=== PATIENT | male | born 1950 | race Caucasian/White ===

== ENCOUNTER 2016-09-08 09:09 | Emergency (ER) | payer BC ==
[~2016-09-08] VITALS: Ht 180.3 cm; Wt 126.0 kg
[~2016-09-08 09:09] MED LIST: ALBU1NEB10 INH; ASPI81TA28 PO; BRIN1SUS OPL; BUDE0.5S INH; CHOL1000 PO; CPR/500 PO; DARI15TA PO; DOCU100T7 PO; FINA5TAB PO; FURO-85 PO; GABA-113 PO; LPR100 PO; LSN20 PO; METF-384 PO; NTRGSL/4 UT; OXYC-57 PO; PHEN-939 PO; PLV75 PO; ROSU40TA PO; URX/10 PO; WLLSR150 PO
[2016-09-08 09:16] VITALS: TEMP 36.9; O2SAT 96; Ht 180.3 cm; Wt 126.0 kg
--- NOTE | 2016-09-08 09:22 | EMERGENCY ROOM VISIT NOTE ---
History Report prepared by Verenice: Marcos Landa Under the Supervision of: Dr. Fernando Dougherty M.D. First contact with patient: 09:08 Chief Complaint: CHEST PAIN Stated Complaint: CHEST PAIN History of Present Illness The patient is a 66 year old male who presents to the Emergency Room with complaints of resolved chest pain that started around 0800. The pain was sharp and came on suddenly when he was sitting down eating cereal. The sharp pain only lasted about 3-4 seconds. He then felt pain radiating to his back between his shoulder blades and he felt very hot. The patient's symptoms lasted about one minute in total. He feels completely fine now. The patient is short of breath at baseline secondary to COPD. He is not more short of breath than baseline. He denies any fevers or chills. The patient felt similar pain when he had a heart attack. He has had two coronary stents placed. The patient takes a baby aspirin daily, including this morning. He was also given aspirin en route to the ED in the ambulance to total 324 mg. He still smokes 1-2 cigarettes per day. Source of History: patient Onset: 0800 Position: chest Quality: sharp Timing: resolved Associated Symptoms: + back pain, No SOB, No chills, No fevers Review of Systems All systems have been listed, reviewed, and are negative other than those previously mentioned. Please see Additional Medical History Sheet. Past Medical & Surgical Medical Problems: (1) Benign hypertension (2) Carpal tunnel syndrome (3) Compensated depression (4) COPD (chronic obstructive pulmonary disease) (5) Coronary artery disease (6) Diabetes mellitus (7) Diabetic neuropathy (8) Hemorrhoid surgery (9) Hyperlipidemia (10) Myocardial infarction (11) Placement of stent (12) Repair of inguinal hernia (13) Scrotal abscess drainage (14) Ventricular fibrillation Family History Diabetes mellitus Heart disease Hypertension Social History Smoking Status: Current Every Day Smoker Housing Status: lives with family Current/Historical Medications Scheduled Alfuzosin HCl (Alfuzosin HCl ER), 10 MG PO QAM Aspirin (Aspirin Ec), 81 MG PO QPM Brinzolamide Oph (Azopt Oph), 1 DROPS OPL BID Budesonide Soln (Pulmicort Respules 0.5MG/2ML), 2 ML INH QID Bupropion HCl (Bupropion HCl Sr), 150 MG PO BID Cholecalciferol (Vitamin D3), 1 TAB PO QAM Ciprofloxacin (Ciprofloxacin HCl), 500 MG PO BID Clopidogrel Bisulfate (Clopidogrel), 75 MG PO QAM Darifenacin (Enablex), 15 MG PO DAILY Docusate Sodium (Stool Softener), 100 MG PO BID Finasteride (Proscar), 5 MG PO QAM Furosemide (Lasix), 20 MG PO QAM Gabapentin (Neurontin), 300 MG PO HS Lisinopril (Lisinopril), 20 MG PO QAM Metformin Hcl (Glucophage), 1,000 MG PO BID Metoprolol Tartrate (Metoprolol Tartrate), 100 MG PO BID Rosuvastatin Calcium (Crestor), 40 MG PO QPM Scheduled PRN Albuterol Sulf (Albuterol Sulfate 0.083% For Inh), 3 ML INH Q4H PRN for COPD Nitroglycerin (Nitrostat), 0.4 MG UT UD PRN for Chest Pain Oxycodone/Acetaminophen 5MG/325MG (Percocet 5MG/325MG), 1-2 TABLETS PO Q4H PRN for Pain Phenazopyridine Hcl (Pyridium), 100 MG PO TID PRN for burning Allergies Coded Allergies: Azithromycin (Verified Allergy, Unknown, diarrhea, 04/04/16) Physical Exam Vital Signs Date Time Temp Pulse Resp B/P Pulse Ox O2 Delivery O2 Flow Rate FiO2 09/08/16 12:57 69 20 131/92 93 09/08/16 12:03 64 18 118/74 96 Nasal Cannula 09/08/16 11:32 64 09/08/16 10:35 72 20 127/69 96 Nasal Cannula 2.0 09/08/16 09:22 96 Nasal Cannula 2.0 09/08/16 09:16 96 Nasal Cannula 2.0 09/08/16 09:16 36.9 79 22 157/89 96 Nasal Cannula 2.0 09/08/16 09:16 96 Nasal Cannula 2.0 Physical Exam GENERAL: Patient awake, alert, oriented x 3. Patient follows commands. Patient does not appear toxic. Patient is adequately hydrated and well- nourished. SKIN: No erythema, pallor, cyanosis or rash HEENT: Normal head, pupils equal, reactive to light and accommodation. LUNGS: Decreased breath sounds bilaterally with faint expiratory wheezes in all lung machado. HEART: No murmurs. No gallops. No rubs ABDOMEN: Obese, soft, nontender. EXTREMITIES: No signs of trauma or infection. NEUROLOGIC: Cranial nerves II-XII within normal limits. No gross motor sensory function deficits. Medical Decision & Procedures ER Provider Diagnostic Interpretation: X ray results are stated below per my interpretation and the radiologist's interpretation. SINGLE VIEW CHEST CLINICAL HISTORY: Atypical chest pain. FINDINGS: 2 AP, portable, upright chest radiographs are compared to study dated 01/13/2016 and correlated with chest CT dated 12/05/2005. The examination is degraded by portable technique and patient rotation. The cardiomediastinal silhouette is unremarkable. Emphysema and chronic interstitial thickening is similar to previous. No airspace consolidation or large pleural effusion is identified. Linear atelectasis versus scarring is noted in the left lower lung. No pneumothorax is seen. The skeletal structures are osteopenic. Degenerative change is noted throughout the thoracic spine. IMPRESSION: Emphysema with no acute cardiopulmonary abnormality. Electronically signed by: Tera Cao M.D. 09/08/2016 9:37 AM Dictated Date/Time: 09/08/2016 9:34 AM Laboratory Results 09/08/16 09:40 09/08/16 09:40 Test 09/08/16 09:40 09/08/16 11:13 Red Blood Count 4.81 M/uL (4.7-6.1) Mean Corpuscular Volume 92.1 fL (80-100) Mean Corpuscular Hemoglobin 29.7 pg (25-34) Mean Corpuscular Hemoglobin Concent 32.3 g/dl (32-36) RDW Standard Deviation 48.1 fL (36.4-46.3) RDW Coefficient of Variation 14.2 % (11.5-14.5) Mean Platelet Volume 9.8 fL (7.4-10.4) Prothrombin Time 10.7 SECONDS (9.0-12.0) Prothromb Time International Ratio 1.0 (0.9-1.1) Activated Partial Thromboplast Time 27.5 SECONDS (21.0-31.0) Partial Thromboplastin Ratio 1.1 Anion Gap 9.0 mmol/L (3-11) Est Creatinine Clear Calc Drug Dose 72.0 ml/min Estimated GFR () 61.1 Estimated GFR (Non- 52.7 BUN/Creatinine Ratio 16.5 (10-20) Calcium Level 9.1 mg/dl (8.5-10.1) Total Bilirubin 0.3 mg/dl (0.2-1) Aspartate Amino Transf (AST/SGOT) 8 U/L (15-37) Alanine Aminotransferase (ALT/SGPT) 15 U/L (12-78) Alkaline Phosphatase 91 U/L (45-117) Total Protein 6.6 gm/dl (6.4-8.2) Albumin 3.2 gm/dl (3.4-5.0) Globulin 3.4 gm/dl (2.5-4.0) Albumin/Globulin Ratio 0.9 (0.9-2) Bedside Troponin I 0.010 ng/ml (0-0.045) Laboratory results as stated above per my review. ECG Indication: chest pain Rate (beats per minute): 68 Rhythm: normal sinus Findings: no acute ischemic change, no ectopy Comparison ECG Date: 2015 Change: no significant change ED Course 0915: Past medical records reviewed. The patient was evaluated in room B4b. A complete history and physical examination was performed. 1225: Updated the patient. He is feeling good. 1240: The patient will be discharged after a repeat EKG is obtained. 1247: Repeat EKG: Normal sinus at 66, no ectopy or ischemic change. 1250: Upon reevaluation, the patient appeared to have improvement of his symptoms. I discussed today's findings with him. He verbalized agreement of the treatment plan. He was discharged home. Medical Decision I considered multiple diagnoses, including acute coronary syndrome, MT, COPD exacerbation, musculoskeletal pain, pneumonia, GERD, esophageal spasm, pectic/ gastric ulcer disease, PE. 66-year-old male with chest pain earlier today. The pain lasted less than 1 minute. It did go into his back. Patient does not believe it was related to eating. The patient has chronic shortness of breath from COPD. He has no nausea vomiting or diaphoresis. The patient does have a prior history of an MT. Multiple labs, EKG and imaging were obtained. 2 sets of troponin were not elevated. 2 EKGs revealed no ischemic findings. The patient ambulated through the emergency department without any pain. We discussed possible causes for his pain. At this point, I do not believe this atypical chest pain was cardiac in origin. The patient has been pain-free since entry. He will be discharged but encouraged to follow-up with his family physician within the next 4-5 days. He is to return here sooner if the pain recurs. Impression Primary Impression: Non-cardiac chest pain Scribe Attestation The scribe's documentation has been prepared under my direction and personally reviewed by me in its entirety. I confirm that the note above accurately reflects all work, treatment, procedures, and medical decision making performed by me. Departure Information Dispostion Home / Self-Care Forms HOME CARE DOCUMENTATION FORM, IMPORTANT VISIT INFORMATION Patient Instructions My [facility] Additional Instructions REST Continue all of your current medications as prescribed. Follow-up with your family physician within the next 4-5 days. Return here sooner if pain recurs.
--- NOTE | 2016-09-08 09:39 | DIAGNOSTIC IMAGING REPORT ---
SINGLE VIEW CHEST CLINICAL HISTORY: Atypical chest pain. FINDINGS: 2 AP, portable, upright chest radiographs are compared to study dated 01/13/2016 and correlated with chest CT dated 12/05/2005. The examination is degraded by portable technique and patient rotation. The cardiomediastinal silhouette is unremarkable. Emphysema and chronic interstitial thickening is similar to previous. No airspace consolidation or large pleural effusion is identified. Linear atelectasis versus scarring is noted in the left lower lung. No pneumothorax is seen. The skeletal structures are osteopenic. Degenerative change is noted throughout the thoracic spine. IMPRESSION: Emphysema with no acute cardiopulmonary abnormality. Electronically signed by: Tera Cao M.D. 09/08/2016 9:37 AM Dictated Date/Time: 09/08/2016 9:34 AM
[2016-09-08 09:58] LABS: HEMATOCRIT 44.3 % (42-52); MEAN CELL VOLUME 92.1 fL (80-100); MEAN CORPUSCULAR HEMOGLOBIN 29.7 pg (25-34); MEAN CORPUSCULAR HGB CONC 32.3 g/dl (32-36); MEAN PLATELET VOLUME 9.8 fL (7.4-10.4); PLATELET COUNT 186 K/uL (130-400); RED BLOOD COUNT 4.81 M/uL (4.7-6.1); WHITE BLOOD COUNT 9.58 K/uL (4.8-10.8)
[2016-09-08 10:07] LABS: PARTIAL THROMBOPLASTIN RATIO 1.1; PROTHROMBIN TIME (PATIENT) 10.7 SECONDS (9.0-12.0)
[2016-09-08 10:16] LABS: BUN/CREATININE RATIO 16.5 (10-20); CALCIUM 9.1 mg/dl (8.5-10.1); CREATININE 1.4 mg/dl (0.60-1.40)
[2016-09-08 10:19] LABS: ALB/GLOB RATIO 0.9 (0.9-2)
[2016-09-08 12:57] VITALS: BP 131/92; PULSE 69; O2SAT 93
== END 2016-09-08 12:58 | disposition home or self-care (01) ==
LOC: EDBD 09:09 → C.EDB 09:10
DX: R07.9 Chest pain, unspecified (principal); I10 Essential (primary) hypertension; E78.5 Hyperlipidemia, unspecified; I25.10 Atherosclerotic heart disease of native coronary artery without angina pectoris; E11.40 Type 2 diabetes mellitus with diabetic neuropathy, unspecified; I49.01 Ventricular fibrillation; I25.2 Old myocardial infarction; J44.9 Chronic obstructive pulmonary disease, unspecified; F17.200 Nicotine dependence, unspecified, uncomplicated; Z98.61 Coronary angioplasty status; Z79.82 Long term (current) use of aspirin; Z79.84 Long term (current) use of oral hypoglycemic drugs; Z79.899 Other long term (current) drug therapy; Z88.1 Allergy status to other antibiotic agents; Z83.3 Family history of diabetes mellitus; Z82.49 Family history of ischemic heart disease and other diseases of the circulatory system

== ENCOUNTER → 2016-10-19 | Outpatient (CLI) | payer BC ==
[~2016-10-19] MED LIST changes: -OXYC-57 PO
--- NOTE | 2016-10-20 06:46 | PAP/PSG TECHNICIAN REPORT ---
[facility] [employer] Operator Helper Polysomnogram Report Study name: None Report date: 10/20/2016 Study date: 10/19/2016 Referring Physician: Dr. Lau Name: ANNA DELGADO Interpreting Physician: Jeffy Lau D.O. Date of : 1950 [employer] Machine Operator Helper: JARROD Jones. Sex: Male Age: 66 StudyType: PSG Weight: 276 lbs Height: 66 years, Height 5' 11" BMI: 38.49 Medications: ALBUTEROL SULFATE 2.5 MG/ML, ASPIRIN 81 MG, BUPROPION HCL ER SR 150 MG, CLOPIDOGREL BISULFATE 75 MG, DARIFENACIN HYDROBROMIDE ER 15 MG, FUROSEMIDE 20 MG, GABAPENTIN 300 MG, LISINOPRIL 20 MG, METFORMIN HCL 1000MG, METOPROLOL TARTRATE 100 MG, NITROGLYCERIN 0.4 MG, ROSUVASTATIN CALCIUM 40 MG, STIOLTO RESPIMAT 2.5-2.5 MCG Patient History PATIENT HAS HISTORY OF BEING TIRED AND FATIGUE DURING THE DAY. ALSO, HAS HISTORY OF LOUD SNORING AND GASPING FOR AIR. HE IS HERE TODAY FOR AN EVALUATION OF SREEKANTH. ESS = 9 RM 1 Parameters Monitored NPSG: E1-M2, E2-M1, Fp1-M2, Fp2-M1, F3-M2, F4-M2, F4-M1, C3-M2, C4-M2, C4-M1, O1-M2, O2-M2, O2-M1, T3-M2, T4-M1, P3-M2, P4-M1, CHIN1, CHIN2, HR, EKG, Legs, PFLOW, SNOR, FLOW, CFLOW, Tidal Volume, THOR, ABDO, SpO2, PLTH, CPRESS, ETCO2 Wave, ETCO2, pH Sleep Architecture Sleep Stages Time at Lights Off 10:44:10 PM STAGES Time (min.) TST (%) Time at Lights On 5:55:40 AM Wake 184.0 -- Total Recording Time (TRT) 432.00 min. N1 39.0 16 Total Sleep Period (TSP) 410.5 min. N2 175.0 71 Total Sleep Time (TST) 247.5min. N3 11.5 5 Awake Time 184.5 min. REM 22.0 9 Wake after Sleep Onset 168.5 min. Sleep Efficiency (SE) 57 % Sleep Onset Latency (CLAIRE) 15.5 min. Number of Stage 1 Shifts None Awakenings 66 Stage Changes 194 Number of REM periods 18 REM 22.0 9 REM Latency 85.0 min. NREM 225.5 91 Body Position Analysis Supine Right Left Side Prone Vertical Total Sleep Time (min.) 9.5 0.0 247.5 247.50 0.0 0.0 Total Sleep Time (%) 0% 0% 100% 100 0% N/A% Total Sleep Time REM (min.) 0.0 0.0 22.0 None 0.0 0.0 Total Sleep Time NREM (min.) 0.0 0.0 225.5 None 0.0 0.0 Intermittent Wake (min.) 9.5 0.0 174.5 None 0.0 0.0 Total Sleep Period (%) 0% None None None None None Arousals Myoclonus (PLM) * Events Count Index Events Count Index Spontaneous 65 16 Events Awake (PLMW) 164 53.5 Respiratory 63 19.9 Events Asleep w/ Arousal (PLMA) 10 2.4 PLM 10 2 Events Asleep w/o Arousal (PLMS) 145 35.2 Snoring 11 3 Total Asleep 155 37.6 Total 149 36 Total 319 44 Respiratory Analysis * CA OA MA CH H RERA Total Count 1 22 0 0 59 29 82 Index 0.2 5.3 0.0 0 14.3 7 26.9 Mean Duration 42.0 22.9 0.0 0.00 20.6 17.5 20.4 Longest Duration 42.0 39.5 0.0 0.00 0.0 21.2 51.5 Respiratory Event Summary Total Supine ~Supine Right Left Prone REM NREM Apneas Count 23 N/A 23 N/A 23 N/A 18 5 Index 5.6 N/A 6 N/A 5.6 N/A 49 1 Hypopneas (4% Desat) Count 59 N/A 59 N/A 59 N/A 5 54 Index 14.3 N/A 14 N/A 14.3 N/A 13.6 14.4 Apneas & All Hypopneas Count 82 N/A 82 N/A 82 N/A 23 59 Index 19.9 N/A 20 N/A 20 N/A 62.7 15.7 Respiratory Events (Assurance Sourcing Manager+All Hyp+RERA) Count 82 N/A 111 N/A 111 N/A 23 59 Index 26.9 N/A 27 N/A 26.9 N/A 62.7 23.4 Respiratory Related Arousal Count 63 N/A 82 N/A 82 N/A 20 62 Index 19.9 N/A 20 N/A 20 N/A 55 16 Snoring Analysis Supine Right Left Prone REM NREM Total Snore duration 11.3 min Snores count N/A N/A 490 N/A 16 474 490 Snore mean duration 1.4 Sec Snores index N/A N/A 119 N/A 43.6 126.1 118.8 TST with snoring (%) 4.6% Desaturation Event Summary: Minimum %SpO2 Event Count Mean/Min/Max Duration(sec.) Desaturation Index % Time In Bed > 90 99 29.4 / 5.0 / 61.6 25.2 57.5 86 - 90 59 22.9 / 5.0 / 58.5 21.1 40.9 81 - 85 0 N/A 0.0 1.4 76 - 80 0 N/A 0.0 0.1 71 - 75 0 N/A 0.0 0.0 66 - 70 0 N/A 0.0 0.0 61 - 65 0 N/A 0.0 0.0 56 - 60 0 N/A 0.0 0.0 51 - 55 0 N/A 0.0 0.0 < 50 0 N/A 0.0 0.0 Total REM NREM Awake <50% 0.0 min. 0.0 min. 0.0 min. 0.0 min. 51 - 60% 0.0 min. 0.0 min. 0.0 min. 0.0 min. 61 - 70% 0.0 min. 0.0 min. 0.0 min. 0.0 min. 71 - 80% 0.4 min. 0.1 min. 0.3 min. 0.0 min. 81 - 90% 173.6 min. 11.7 min. 108.2 min. 53.6 min. 91 - 100% 235.9 min. 10.2 min. 116.9 min. 108.8 min. Average 91 90 90 91 Minimum SpO2 75 80 75 77 Desaturation Event Index 14.6 38.2 15.2 13.0 # Desat. Events below 89% 85 12 40 33 Time(%) with Saturation below 89% 8.1 1.1 3.8 3.3 Time(min.) with Saturation below 89% 33.3 4.5 15.4 13.4 Time (mins) REM (mins) NREM (mins) % of TST SpO2 Below 90% 67 12 N55 22.5 SpO2 Below 88% 24 0 0 4 Heart Rate Analysis Min (bpm) Max (bpm) Average (bpm) Awake 51 83 65 NREM 51 80 61 REM 51 79 64 Overall 51 80 62 Supplemental O2 Values Minimum O2 level: None Value Start Time End Time [employer] Machine Operator Helper Comments Mr. Delgado slept in the left and supine positions. No cardiac arrhythmia noted. Leg movements noted. No bruxism noted. Snoring was noted and scored as a 4 on a scale of 1 through 5. (0=no snoring, 5=snoring loud enough to be heard through a closed door or down the [address] way) Mr. Delgado awoke to use the restroom 2 times during the night. Mr. Delgado stated I did not sleep as well as I do when I am in my own bed. The final report will be interpreted and signed by a sleep physician. The completed physician report will then be placed in the patient medical record. Therapy (cm H2O) 0 TIB (min.) 431.5 TST (min.) 247.5 Sleep Onset (min.) 15.5 REM Onset From Sleep (min.) 85.0 Sleep Efficiency % 57 Wakefulness (%) 43 Wakefulness (min.) 184.5 NREM 1 (%) 16 NREM 1 (min.) 39.0 NREM 2 (%) 71 NREM 2 (min.) 175.0 NREM 3 (%) 5 NREM 3 (min.) 11.5 REM (%) 9 REM (min.) 22.0 # Arousals 149 Arousal Index 36 # Snore 490 Snore Index 118.8 AHI 19.9 AHI Supine N/A AHI Non-Supine 20 NREM AHI 15.7 REM AHI 62.7 RDI 26.9 # Obstructive Apnea 22 # Central Apnea 1 # Mixed Apnea 0 # Hypopneas 59 RERAs 29 Total Respiratory Events 114 Time Below SpO2 89% (min.) 19.9 Mean NREM SpO2 (%) 90 Mean REM SpO2 (%) 90 Mean Sleep SpO2 (%) 90 Min NREM SpO2 (%) 75 Min REM SpO2 (%) 80 Position Supine (min.) 9.5 Position Non-supine (min.) 247.5 LM Index Sleep 37.6 LM Index NREM 34.3 LM Index REM 70.9 Mean Heart Rate (bpm) 62 Min Heart Rate (bpm) 51
--- NOTE | 2016-10-21 14:49 | POLYSOMNOGRAPH REPORT ---
SLEEP STUDY REPORT PRIMARY PHYSICIAN: Dr. Pappas. CLINICAL DATA: The patient is a 66-year-old male with a BMI elevated at 38.49. He has symptoms of snoring, disturbed nocturnal sleep, and excessive daytime somnolence. He completed the [place] sleepiness scale and had a score of 9 out of a possible 24. In addition to the above symptoms, he has had shortness of breath and peripheral edema. Comorbidities for sleep apnea include hypertension and diabetes. The study was a polysomnography done in the sleep lab. SLEEP ARCHITECTURE: Total sleep period was 410.5 minutes and total sleep time was 247.5 minutes. The sleep efficiency was moderately reduced to 57%. The sleep latency was 15.5 minutes, which is normal. REM latency was 85.0 minutes, which is normal. Wake after sleep onset was elevated at 168.5 minutes. Stage changes were elevated at 194. Sleep consisted of stage N1 at 16%, stage N2 at 71%, stage N3 at 5%, and stage REM 9%. AROUSAL DATA: The patient had a total of 149 arousals including 65 spontaneous arousals, 63 respiratory arousals, 10 PLM arousals, and 11 snoring arousals. The arousal index was elevated at 36. PLM DATA: The patient had a total of 155 periodic limb movements of sleep for an index of 37.6 events per hour. However, the PLM arousal index was only 2.4. EKG: The underlying cardiac rhythm was normal sinus. The cardiac rates ranged from 51 to 80 beats per minute. No arrhythmias were noted. RESPIRATORY DATA: The patient had a total of 1 central apneic, 22 obstructive apneas, and 59 hypopneas. The apnea-hypopnea index was moderately elevated at 19.9 events per hour. In addition to the apneas and hypopneas, he had 29 RERAs. The apnea-hypopnea index during REM sleep was 62.7 and during non-REM was 15.7. OXIMETRY DATA: The oxygen saturation reached a rocío of 75%. He had 173.6 minutes with saturations between 81% and 90%. There was a total of 24 minutes with saturations less than 88%. SUPERVISOR PAIRING AND INSPECTING COMMENTS: Mr. Stephenson slept in the left and supine positions. Snoring was noted and scored as a 4 on a scale of 1 through 5. He awakened to use the restroom 2 times during the night time. The patient stated he did not sleep as well as he usually does in his own bed. IMPRESSIONS: 1. Obstructive sleep apnea - moderate. 2. Periodic limb movement disorder. COMMENTS: The patient had disturbed sleep with frequent awakenings and arousals. His sleep was poorly consolidated. He had moderate sleep apnea as noted. There was moderate hypoxemia as noted. The patient does have significant comorbidities. Treatment is advised. The underlying limb movement disorder likely does not need treatment at present. The sleep apnea should be treated first. In light of the fact there were relatively few arousals with the limb movements, it is unlikely treatment will be necessary. RECOMMENDATIONS: 1. It is advised that the patient be given a trial of nasal CPAP or BiPAP. 2. Weight reduction is advised in light of the elevation of body mass index at 38.49. 3. It is suggested that the patient avoid sleeping in the supine position. 4. Further suggestions will be made following treatment with nasal CPAP.
== END | disposition home or self-care (01) ==
LOC: C.NEUR 21:00
PROVIDERS: ATTEND Internal Medicine Pulmonary Disease
DX: G47.33 Obstructive sleep apnea (adult) (pediatric) (principal)

== ENCOUNTER → 2016-11-03 | Outpatient (CLI) | payer BC, OTHER ==
--- NOTE | 2016-11-04 06:04 | PAP/PSG TECHNICIAN REPORT ---
[facility] Hr Generalist Polysomnogram Report Study name: None Report date: 11/04/2016 Study date: 11/03/2016 Referring Physician: Dr. Lau Name: ANNA DELGADO Interpreting Physician: Jeffy Lau D.O. Date of : 1950 Hr Generalist: JARROD Lawrence. Sex: Male Age: 66 StudyType: PSG PAP Weight: 276 lbs Height: 66 years, Height 5' 11" Neck Circum: BMI: 38.49 Medications: Albuterol Silfate 2.5mg/3ml, ASA 81mg, Budesonide 0.5mg/2ml, Bupropion HCl ER 150 mg, Clopidogrel Bisulfate 75mg, Darifenacin Hydrobromide ER 15mg, Furosemide 20mg, Gabapentin 300mg, Ipratropium-Albuterol 0.5-2.5mg/3ml, Lisinopril 20mg, Metformin 1000mg, Metoprolol 100mg, Nitroglycerin 0.4mg, Rosuvastatin Calcium 40mg, Vit D-3 Patient History Study started on room air with 4cwp cpap in room #8. 66 yr old male here tonight for a new titration study. He had a diagnostic psg done here on 10/19/16at had an AHI of 19.9 and an RDI of 26.9. His ESS=9/24. Parameters Monitored NPSG: E1-M2, E2-M1, Fp1-M2, Fp2-M1, F3-M2, F4-M2, F4-M1, C3-M2, C4-M2, C4-M1, O1-M2, O2-M2, O2-M1, T3-M2, T4-M1, P3-M2, P4-M1, CHIN1, CHIN2, HR, EKG, Legs, PFLOW, SNOR, FLOW, CFLOW, Tidal Volume, THOR, ABDO, SpO2, PLTH, CPRESS, ETCO2 Wave, ETCO2, pH Sleep Architecture Sleep Stages Time at Lights Off 10:54:48 PM STAGES Time (min.) TST (%) Time at Lights On 5:50:48 AM Wake 141.0 -- Total Recording Time (TRT) 416.00 min. N1 10.5 4 Total Sleep Period (TSP) 328.5 min. N2 133.0 48 Total Sleep Time (TST) 275.0min. N3 64.0 23 Awake Time 141.0 min. REM 67.5 25 Wake after Sleep Onset 91.0 min. Sleep Efficiency (SE) 66 % Sleep Onset Latency (CLAIRE) 50.0 min. Number of Stage 1 Shifts None Awakenings 14 Stage Changes 58 Number of REM periods 8 REM 67.5 25 REM Latency 60.0 min. NREM 207.5 75 Body Position Analysis Supine Right Left Side Prone Vertical Total Sleep Time (min.) 416.0 0.0 0.0 0.00 0.0 0.0 Total Sleep Time (%) 100% 0% 0% 0 0% N/A% Total Sleep Time REM (min.) 67.5 0.0 0.0 None 0.0 0.0 Total Sleep Time NREM (min.) 207.5 0.0 0.0 None 0.0 0.0 Intermittent Wake (min.) 141.0 0.0 0.0 None 0.0 0.0 Total Sleep Period (%) 100% None None None None None Arousals Myoclonus (PLM) * Events Count Index Events Count Index Spontaneous 11 2 Events Awake (PLMW) 156 66.4 Respiratory 4 1.1 Events Asleep w/ Arousal (PLMA) 7 1.5 PLM 7 2 Events Asleep w/o Arousal (PLMS) 107 23.3 Snoring 2 0 Total Asleep 114 24.9 Total 24 5 Total 270 39 Respiratory Analysis * CA OA MA CH H RERA Total Count 0 3 0 0 13 0 16 Index 0.0 0.7 0.0 0 2.8 0 3.5 Mean Duration 0.0 13.0 0.0 0.00 21.6 0.0 20.0 Longest Duration 0.0 13.8 0.0 0.00 0.0 0.0 34.9 Respiratory Event Summary Total Supine ~Supine Right Left Prone REM NREM Apneas Count 3 3 N/A N/A N/A N/A 1 2 Index 0.7 1 N/A N/A N/A N/A 1 1 Hypopneas (4% Desat) Count 13 13 N/A N/A N/A N/A 13 0 Index 2.8 2.8 N/A N/A N/A N/A 11.6 0.0 Apneas & All Hypopneas Count 16 16 N/A N/A N/A N/A 14 2 Index 3.5 3 N/A N/A N/A N/A 12.4 0.6 Respiratory Events (Appeals Specialist+All Hyp+RERA) Count 16 16 N/A N/A N/A N/A 14 2 Index 3.5 3 N/A N/A N/A N/A 12.4 0.6 Respiratory Related Arousal Count 4 16 N/A N/A N/A N/A 5 0 Index 1.1 1 N/A N/A N/A N/A 4 0 Snoring Analysis Supine Right Left Prone REM NREM Total Snore duration 0.4 min Snores count 16 N/A N/A N/A 4 12 16 Snore mean duration 1.4 Sec Snores index 3 N/A N/A N/A 3.6 3.5 3.5 TST with snoring (%) 0.1% Desaturation Event Summary: Minimum %SpO2 Event Count Mean/Min/Max Duration(sec.) Desaturation Index % Time In Bed > 90 21 27.9 / 6.8 / 60.0 17.2 17.8 86 - 90 45 26.4 / 5.0 / 60.0 8.6 76.6 81 - 85 5 22.8 / 16.5 / 31.8 13.2 5.5 76 - 80 0 N/A 0.0 0.0 71 - 75 0 N/A 0.0 0.0 66 - 70 0 N/A 0.0 0.0 61 - 65 0 N/A 0.0 0.0 56 - 60 0 N/A 0.0 0.0 51 - 55 0 N/A 0.0 0.0 < 50 0 N/A 0.0 0.0 Total REM NREM Awake <50% 0.0 min. 0.0 min. 0.0 min. 0.0 min. 51 - 60% 0.0 min. 0.0 min. 0.0 min. 0.0 min. 61 - 70% 0.0 min. 0.0 min. 0.0 min. 0.0 min. 71 - 80% 0.2 min. 0.2 min. 0.0 min. 0.0 min. 81 - 90% 336.9 min. 63.1 min. 191.1 min. 82.7 min. 91 - 100% 73.1 min. 4.0 min. 14.7 min. 54.4 min. Average 89 87 89 90 Minimum SpO2 80 80 84 84 Desaturation Event Index 7.2 21.3 1.7 8.9 # Desat. Events below 89% 48 24 5 19 Time(%) with Saturation below 89% 39.6 12.0 22.1 5.5 Time(min.) with Saturation below 89% 162.5 49.3 90.6 22.5 Time (mins) REM (mins) NREM (mins) % of TST SpO2 Below 90% 30 24 N6 78.5 SpO2 Below 88% 15 0 0 22 Heart Rate Analysis Min (bpm) Max (bpm) Average (bpm) Awake 48 127 75 NREM 67 89 72 REM 58 83 74 Overall 58 89 73 Supplemental O2 Values Minimum O2 level: None Value Start Time End Time Hr Generalist Comments Mr. Delgado slept in the supine position. No cardiac arrhythmia noted. Some leg movements were noted. No bruxism noted. CPAP was initiated at +4 CMH2O and up-titrated to an optimal level of +10 CMH2O, which nearly eliminated all respiratory events and snoring. At 5:34 am 1lpm oxygen was added. Oxygen saturation was under 89% for 28.2 minutes. AHI was 1.8 on [id number] for 123 minutes. A medium Quattro Air full face mask by [email or web address] was used during titration He did not use the restroom during the night. He stated that he slept fair. The final report will be interpreted and signed by a sleep physician. The completed physician report will then be placed in the patient medical record. Therapy Event: Therapy (cm H20) 4 5 6 8 10 Total Time at Pressure (min.) 101.1 21.3 25.4 128.0 140.2 TST at Pressure (min.) 20.1 21.3 25.4 108.0 100.2 # Periods 1 1 1 1 1 Sleep Onset (min.) 50.0 0.0 0.0 0.0 0.0 REM Onset (min.) N/A 8.9 0.0 0.0 0.7 Sleep Efficiency % 19 100 100 84 71 Wakefulness (%) 80.1 0.0 0.0 15.6 28.5 Wakefulness (min.) 81.0 0.0 0.0 20.0 40.0 NREM 1 (%) 1.5 0.0 2.0 2.6 3.7 NREM 1 (min.) 1.5 0.0 0.5 3.3 5.2 NREM 2 (%) 18.4 4.2 0.0 44.1 40.7 NREM 2 (min.) 18.6 0.9 0.0 56.5 57.0 NREM 3 (%) 0.0 37.6 0.0 23.4 18.5 NREM 3 (min.) 0.0 8.0 0.0 30.0 26.0 REM (%) 0.0 58.2 98.0 14.2 8.6 REM (min.) 0.0 12.4 24.9 18.2 12.0 # Arousals 1 2 2 9 10 Arousal Index 3.0 5.6 4.7 5.0 6.0 # Snore 0 2 1 2 11 Snore Index 0.0 5.6 2.4 1.1 6.6 AHI 0.0 11.3 14.2 1.7 1.8 AHI Supine 0.0 11.3 14.2 1.7 1.8 AHI Non-Supine N/A N/A N/A N/A N/A NREM AHI 0.0 6.7 0.0 0.0 0.7 REM AHI N/A 14.5 14.4 9.9 10.0 RDI 0.0 11.3 14.2 1.7 1.8 # Obstructive 0 2 0 0 1 # Central Ap 0 0 0 0 0 # Mixed 0 0 0 0 0 # Hypopneas 0 2 6 3 2 RERAS 0 0 0 0 0 Total Respiratory Events 0 4 6 3 3 Time Below SpO2 89.00% (min.) 16.1 15.9 16.2 63.5 28.2 Mean NREM SpO2 (%) 88 88 87 88 89 Mean REM SpO2 (%) N/A 85 88 87 87 Mean Sleep SpO2 (%) 88 87 88 88 89 Min NREM SpO2 (%) 86 86 85 84 85 Min REM SpO2 (%) N/A 80 80 80 83 Position Supine (min.) 20.1 21.3 25.4 108.0 100.2 Position Non-supine (min.) 0.0 0.0 0.0 0.0 0.0 LM Index Sleep 32.8 36.7 40.1 21.1 21.0 LM Index NREM 32.8 6.7 0.0 10.7 10.9 LM Index REM N/A 58.2 40.9 72.6 95.0 Mean Heart Rate (bpm) 71 72 74 72 74 Min Heart Rate (bpm) 67 64 64 66 58
--- NOTE | 2016-11-07 20:50 | POLYSOMNOGRAPH REPORT ---
CLINICAL DATA: The patient is a 66-year-old male who has a BMI of 38.49. He had a diagnostic sleep study done 10/20/2016 because of symptoms of snoring, gasping and fatigue. He had moderate sleep apnea with an apnea-hypopnea index of 19.9 and oxygen saturations were as low as 75%. He returns to the sleep disorder center for a trial of nasal CPAP. SLEEP ARCHITECTURE: The total sleep period was 328.5 minutes. The total sleep time was 275.0 minutes. The sleep efficiency was moderately reduced to 66%. The sleep onset latency was prolonged at 50.0 minutes. Wake after sleep onset was prolonged to 91 minutes. The REM latency was normal at 60 minutes. Sleep consisted of stage N1 4%, stage N2 48%, stage N3 23%, stage REM 25%. AROUSAL DATA: The patient had a total of 24 arousals including 11 spontaneous arousals, 4 respiratory arousals, 7 PLM arousals, and 2 snoring arousals. The arousal index was 5 events per hour. PLM DATA: The patient had a total of 114 periodic limb movements of sleep for a PLM index of 24.9. The PLM arousal index was only 1.5. EKG: The underlying cardiac rhythm was normal sinus. The cardiac rates ranged from 58-89 beats per minute. No cardiac arrhythmia was noted. RESPIRATORY DATA: The patient's nocturnal events were treated with nasal CPAP which was titrated up to a final pressure of 10 cm. During this study, the patient had a total of 16 respiratory events including 3 obstructive apneas and 13 hypopneas. The hypopneas were scored by the 4% rule. The apnea-hypopnea index was 3.5 events per hour. At the final pressure of 10 cm, the patient spent a total of 100.2 minutes of sleep and had an apnea-hypopnea index of only 1.8. OXIMETRY DATA: The patient had an average saturation of 89%. The minimum saturation was 80%. He had a total of 15 minutes less than 88%. PEST CONTROL OPERATOR'S COMMENTS: Mr. Stephenson slept in the supine position. No cardiac arrhythmia was noted. Some leg movements were noted. CPAP was initiated at a pressure of 4 and up-titrated to an optimum pressure of 10 cm which nearly eliminated all respiratory events and snoring. At 5:34 a.m., 1 liter per minute oxygen was added because his saturation had been under 89% for 28.2 minutes. A medium Quattro Air full facemask by [employer] was used. IMPRESSION: Obstructive sleep apnea -- resolved with nasal CPAP at 10 cm. COMMENTS: The patient seemed to tolerate nasal CPAP well; however, his sleep efficiency was decreased to 66%. He did have 2 episodes of prolonged wake early in the nighttime. His sleep became more consolidated when CPAP was utilized and he had very little apnea at the final pressure. Oxygenation improved but remained somewhat abnormal and thus 1 liter of oxygen was added. RECOMMENDATIONS: 1. It is advised that the patient be started on nasal CPAP at 10 cm. 2. Two liters of oxygen is to be added into the CPAP. 3. It is suggested that the patient be ordered a medium Quattro Air full facemask. 4. Weight loss is advised in light of the elevation of body mass index of 38.49. 5. If possible, the patient should avoid sleeping in the supine position. He spent the entire night during this study supine. KENISHA
== END | disposition home or self-care (01) ==
LOC: C.NEUR 21:00
PROVIDERS: ATTEND Internal Medicine Pulmonary Disease
DX: G47.33 Obstructive sleep apnea (adult) (pediatric) (principal)

== ENCOUNTER → 2016-12-19 | Outpatient (CLI) | payer OTHER ==
[2016-12-19 12:51] LABS: ESTIMATED AVERAGE GLUCOSE 131 mg/dl; HA1C FLAG Normal (Normal)
[2016-12-19 13:05] LABS: BLOOD UREA NITROGEN 18 mg/dl (7-18); BUN/CREATININE RATIO 13.8 (10-20); CARBON DIOXIDE 30 mmol/L (21-32); CHLORIDE 107 mmol/L (98-107); CHOLESTEROL 168 mg/dl (0-200); GLUCOSE 137 mg/dl (70-99); POTASSIUM 4.2 mmol/L (3.5-5.1); SODIUM 144 mmol/L (136-145); TRIGLYCERIDES 300 mg/dl (0-150); VERY LOW DENSITY LIPOPROT CALC 60 mg/dl
[2016-12-19 13:08] LABS: ALB/GLOB RATIO 0.9 (0.9-2); ALKALINE PHOSPHATASE 89 U/L (45-117); ALT/SGPT 19 U/L (12-78); AST/SGOT 13 U/L (15-37); CHOLESTEROL/HDL RATIO 3.7; HDL CHOLESTEROL 45 mg/dl; LDL CHOLESTEROL CALCULATED 63 mg/dl
[2016-12-19 13:25] LABS: CALCIUM 9.4 mg/dl (8.5-10.1)
== END | disposition home or self-care (01) ==
LOC: C.LABPVFM 09:24
PROVIDERS: ATTEND Family Medicine
DX: I10 Essential (primary) hypertension (principal); E78.5 Hyperlipidemia, unspecified; E11.9 Type 2 diabetes mellitus without complications; I25.10 Atherosclerotic heart disease of native coronary artery without angina pectoris; E11.42 Type 2 diabetes mellitus with diabetic polyneuropathy

== ENCOUNTER → 2016-12-22 | Outpatient (CLI) | payer OTHER ==
[2016-12-22 13:08] LABS: RATIO 35.6 mcg/mg (0-30.0)
[2016-12-22 13:11] LABS: URINE PROTIEN/CREAT RATIO 0.3 (0-0.2); URINE TOTAL PROTEIN 33.1 mg/dl (0-11.9)
== END | disposition home or self-care (01) ==
LOC: C.LABPVFM 07:53
PROVIDERS: ATTEND Family Medicine
DX: I10 Essential (primary) hypertension (principal); E78.5 Hyperlipidemia, unspecified; I25.10 Atherosclerotic heart disease of native coronary artery without angina pectoris; E11.42 Type 2 diabetes mellitus with diabetic polyneuropathy

== ENCOUNTER → 2017-02-20 | Outpatient (CLI) | payer OTHER ==
[2017-02-20 18:25] LABS: BLOOD UREA NITROGEN 14 mg/dl (7-18); BUN/CREATININE RATIO 9.7 (10-20); CALCIUM 8.9 mg/dl (8.5-10.1); CARBON DIOXIDE 27 mmol/L (21-32); CHLORIDE 110 mmol/L (98-107); GLUCOSE 116 mg/dl (70-99); MAGNESIUM 2.2 mg/dl (1.8-2.4); POTASSIUM 4.4 mmol/L (3.5-5.1); SODIUM 145 mmol/L (136-145)
[2017-02-20 18:26] LABS: PHOSPHORUS 2.4 mg/dl (2.5-4.9)
[2017-02-20 18:31] LABS: URINE PROTIEN/CREAT RATIO 0.2 (0-0.2); URINE TOTAL PROTEIN 37.7 mg/dl (0-11.9)
== END | disposition home or self-care (01) ==
LOC: C.LABPVFM 15:39
PROVIDERS: ATTEND Internal Medicine Nephrology
DX: N18.3 Chronic kidney disease, stage 3 (moderate) (principal)

== ENCOUNTER → 2017-08-01 | Outpatient (CLI) | payer OTHER, MEDICARE ==
[2017-08-01 13:03] LABS: ALT/SGPT 19 U/L (12-78); BLOOD UREA NITROGEN 20 mg/dl (7-18); BUN/CREATININE RATIO 13.1 (10-20); CALCIUM 9.2 mg/dl (8.5-10.1); CARBON DIOXIDE 28 mmol/L (21-32); CHLORIDE 108 mmol/L (98-107); CHOLESTEROL 185 mg/dl (0-200); CREATININE 1.53 mg/dl (0.60-1.40); GLUCOSE 131 mg/dl (70-99); SODIUM 142 mmol/L (136-145)
[2017-08-01 13:05] LABS: ALB/GLOB RATIO 0.8 (0.9-2); ALKALINE PHOSPHATASE 86 U/L (45-117); AST/SGOT 13 U/L (15-37); CHOLESTEROL/HDL RATIO 5.1; HDL CHOLESTEROL 36 mg/dl; LDL CHOLESTEROL CALCULATED 87 mg/dl; TRIGLYCERIDES 312 mg/dl (0-150); VERY LOW DENSITY LIPOPROT CALC 62 mg/dl
[2017-08-01 13:09] LABS: ESTIMATED AVERAGE GLUCOSE 134 mg/dl; HA1C FLAG Normal (Normal)
[2017-08-01 18:04] LABS: RATIO 22.2 mcg/mg (0-30.0)
== END | disposition home or self-care (01) ==
LOC: C.LABPVFM 09:23
PROVIDERS: ATTEND Family Medicine
DX: I10 Essential (primary) hypertension (principal); E78.5 Hyperlipidemia, unspecified; E11.9 Type 2 diabetes mellitus without complications; N18.3 Chronic kidney disease, stage 3 (moderate); I25.10 Atherosclerotic heart disease of native coronary artery without angina pectoris

== ENCOUNTER → 2017-08-29 | Outpatient (CLI) | payer OTHER, MEDICARE ==
[~2017-08-29] MED LIST changes: +LISI-726 PO; -LSN20 PO; +PHEN-774 PO; -PHEN-939 PO
[2017-08-29 12:40] LABS: BASO % 0.6 %; BASO ABS # 0.07 K/uL (0-0.2); EOS ABS # 0.22 K/uL (0-0.5); HEMATOCRIT 44.6 % (42-52); HEMOGLOBIN 14.1 g/dL (14.0-18.0); IG# 0.14 K/uL (0.00-0.02); LYMPH % 13.9 %; LYMPH ABS # 1.52 K/uL (1.2-3.4); MEAN CELL VOLUME 93.5 fL (80-100); MEAN CORPUSCULAR HEMOGLOBIN 29.6 pg (25-34); MEAN CORPUSCULAR HGB CONC 31.6 g/dl (32-36); MONO % 8.1 %; MONO ABS # 0.88 K/uL (0.11-0.59); NEUT % 74.1 %; NEUT ABS # 8.07 K/uL (1.4-6.5); PLATELET COUNT 199 K/uL (130-400); RED CELL DISTRIBUTION WIDTH CV 14.6 % (11.5-14.5); RED CELL DISTRIBUTION WIDTH SD 49.2 fL (36.4-46.3)
[2017-08-29 13:54] LABS: ALBUMIN 3.3 gm/dl (3.4-5.0); BLOOD UREA NITROGEN 21 mg/dl (7-18); CALCIUM 10.1 mg/dl (8.5-10.1); CARBON DIOXIDE 30 mmol/L (21-32); CREATININE 1.73 mg/dl (0.60-1.40); GLUCOSE 151 mg/dl (70-99); PHOSPHORUS 3.4 mg/dl (2.5-4.9); POTASSIUM 4.3 mmol/L (3.5-5.1); SODIUM 142 mmol/L (136-145)
== END | disposition home or self-care (01) ==
LOC: C.LABPVFM 10:13
PROVIDERS: ATTEND Internal Medicine Nephrology
DX: N18.3 Chronic kidney disease, stage 3 (moderate) (principal)

== ENCOUNTER → 2017-10-06 | Outpatient (CLI) | payer OTHER, MEDICARE ==
[~2017-10-06] MED LIST changes: -LISI-726 PO; +LSN20 PO; -PHEN-774 PO; +PHEN-939 PO
== END | disposition home or self-care (01) ==
LOC: C.LABPVFM 11:21
PROVIDERS: ATTEND Urology
DX: N40.1 Benign prostatic hyperplasia with lower urinary tract symptoms (principal)

== ENCOUNTER → 2017-12-28 | Outpatient (CLI) | payer OTHER, MEDICARE ==
[~2017-12-28] MED LIST changes: +PHEN-774 PO; -PHEN-939 PO
[2017-12-28 17:51] LABS: BASO % 0.7 %; BASO ABS # 0.06 K/uL (0-0.2); EOS ABS # 0.17 K/uL (0-0.5); HEMATOCRIT 41.5 % (42-52); HEMOGLOBIN 12.9 g/dL (14.0-18.0); IG# 0.07 K/uL (0.00-0.02); LYMPH % 14.8 %; LYMPH ABS # 1.27 K/uL (1.2-3.4); MEAN CELL VOLUME 93.3 fL (80-100); MEAN CORPUSCULAR HGB CONC 31.1 g/dl (32-36); MEAN PLATELET VOLUME 9.9 fL (7.4-10.4); MONO % 13.1 %; MONO ABS # 1.12 K/uL (0.11-0.59); NEUT % 68.6 %; NEUT ABS # 5.87 K/uL (1.4-6.5); PLATELET COUNT 206 K/uL (130-400); RED CELL DISTRIBUTION WIDTH CV 15.2 % (11.5-14.5); WHITE BLOOD COUNT 8.56 K/uL (4.8-10.8)
[2017-12-28 18:37] LABS: ALBUMIN 3.2 gm/dl (3.4-5.0); BLOOD UREA NITROGEN 26 mg/dl (7-18); CALCIUM 9.1 mg/dl (8.5-10.1); CARBON DIOXIDE 26 mmol/L (21-32); CREATININE 1.97 mg/dl (0.60-1.40); GLUCOSE 134 mg/dl (70-99); SODIUM 139 mmol/L (136-145)
[2017-12-28 18:38] LABS: PHOSPHORUS 2.4 mg/dl (2.5-4.9)
== END | disposition home or self-care (01) ==
LOC: C.LABPVFM 11:46
PROVIDERS: ATTEND Internal Medicine Nephrology
DX: I10 Essential (primary) hypertension (principal)

== ENCOUNTER 2018-12-04 11:34 | Inpatient (IN) ==
[2018-12-04 12:18] LABS: Basophils # (auto) 0.03 K/uL (0-0.2); Basophils % (auto) 0.2 %; Eosinophils # (auto) 0.01 K/uL (0-0.5); Eosinophils % (auto) 0.1 %; Hematocrit (blood only) 41.6 % (42-52); Hemoglobin 12.7 g/dL (14.0-18.0); Immature Granulocytes # (auto) 0.05 K/uL (0.00-0.02); Immature Granulocytes % (auto) 0.3 %; Lymphocytes # (auto) 0.75 K/uL (1.2-3.4); Lymphocytes % (auto) 4.4 %; Mean Corpuscular Hgb Conc 30.5 g/dL (32-36); Mean Corpuscular Volume 81.3 fL (80-100); Mean Platelet Volume 9.7 fL (7.4-10.4); Monocytes # (auto) 1.86 K/uL (0.11-0.59); Neutrophils # (auto) 14.27 K/uL (1.4-6.5); Platelet Count 235 K/uL (130-400); RDW Coefficient of Variation 17.9 % (11.5-14.5); RDW Standard Deviation 52.7 fL (36.4-46.3); Red Blood Count 5.12 M/uL (4.7-6.1); White Blood Count 16.97 K/uL (4.8-10.8)
--- NOTE | 2018-12-04 12:23 | XRay Report ---
XR chest 1V portable CLINICAL HISTORY: SOB, COPD dyspnea COMPARISON STUDY: 09/08/2016 FINDINGS: Focal pleural reactive change and or infiltrate lateral aspect left base. Mild emphysematou s change. Mild stable cardiomegaly. IMPRESSION: Focal parenchymal infiltrate/pleural reactive change lateral aspect left base. Mild Base line emphysematous change. The above report was generated using voice recognition software. It may contain grammatical, syntax or spelling errors. Electronically signed by: Francisco Saez M.D. 12/04/2018 12:22 PM
[2018-12-04 12:31] LABS: Partial Thromboplastin Ratio 0.8; Partial Thromboplastin Time 21.9 Seconds (21.0-31.0); Prothrombin Time 10.1 Seconds (9.0-12.0)
[2018-12-04] MEDS ORDERED: ALBUT/IPRATROP 3MG/0.5MG NEB 3 ML VIAL NEB STA ×3 (12:33→14:14)
[2018-12-04] MEDS ORDERED: predniSONE 50 MG TAB PO STA (12:33)
[2018-12-04 12:34] LABS: BUN Creatinine Ratio 8.9 (10-20); Calcium 9.2 mg/dl (8.5-10.1); Creatinine Clr Calc Pharmacy 40.9 ml/min; Est GFR (African American) 30.9; Est GFR (Non-African American) 26.7; Potassium 4.3 mmol/L (3.5-5.1)
[2018-12-04 12:36] LABS: Albumin Globulin Ratio 0.7 (0.9-2); Bilirubin,Total 0.5 mg/dl (0.2-1); Globulin 4.1 gm/dl (2.5-4.0); Total Protein 7.1 gm/dl (6.4-8.2)
[2018-12-04] MEDS ORDERED: LEVOFLOXACIN/D5W 750 MG/150 ML BAG IV STA (13:25)
--- NOTE | 2018-12-04 13:41 | CT Scan Report ---
CT head/brain wo con CT DOSE: 614.27 mGy.cm HISTORY: Mental status change weakness TECHNIQUE: Multiaxial CT images of the head were performed without the use of intravenous contrast. A dose lowering technique was utilized adhering to the principles of ALARA. Comparison: None. Findings: The paranasal sinuses and mastoid air cells are clear. The calvarium and skull base are int act. The ventricles and sulci are within normal limits. There is no mass, hematoma, midline shift, or acute infarct. Age-related atrophy and chronic small vessel change. Impression: No acute intracranial abnormality. Age-related atrophy and chronic small vessel change The above report was generated using voice recognition software. It may contain grammatical, syntax or spelling errors. Electronically signed by: Francisco Saez M.D. 12/04/2018 1:39 PM
--- NOTE | 2018-12-04 15:46 | History & Physical Report ---
Date of Service December 04, 2018 Assessment & Plan (1) PNA (pneumonia): Noted on CXR Levaquin started in the ED, will continue Elevated WBC, afebrile (2) COPD exacerbation: Likely exacerbated due to PNA Nebs, steroids in the ED, will continue with nebs, solumedrol 40mg BID Flu neg (3) Weakness: Uncertain etiology, possibly related to PNA/COPD status CT head neg for acute No major electrolyte abn PT Monitor with above tx (4) Hypoxia: home O2 PRN at baseline Monitor (5) Leg swelling: Takes PRN lasix Will hold on heavy IVF to avoid overload (6) Diabetes mellitus: continue home meds SSI PRN A1c pending (7) CKD (chronic kidney disease): Baseline cr is approx 2.0, 2.4 on admission Monitor (8) BPH (benign prostatic hyperplasia): continue home meds (9) Peripheral neuropathy: continue home meds (10) Hypertension: continue home meds (11) Depression: continue home meds (12) Hypercholesterolemia: continue home meds (13) DVT prophylaxis: SCDs, Heparin for DVT proph History of Present Illness Primary Care Provider: Sussy Pappas MD 68 y/o M c/o sudden onset weakness. Pt states that he was at his usual yesterday. He was able to ambulate as he usually would. Pt always has SOB at baseline, but his breathing was not worse than usual. No issues with PO intake. He states that he was trying to get out of bed today around 10:30a and fell to the floor. "My legs just wouldn't hold me." His was there and could not get him back into bed. EMS was called and they did get him back into bed, however he states he was too weak to help them. This is unusual for him. Pt denies fever, chest pain, abd pain, n/v/c/d, LE pain or swelling. Allergies Allergy/AdvReac Type Severity Reaction Status Date / Time mivacurium AdvReac Intermediate diarrhea Verified 12/04/18 15:07 Home Medications Home Medications Medication Instructions Recorded Confirmed Type Breo Ellipta 1 inh INHALATION DAILY PRN 08/22/18 12/03/18 History budesonide 0.5 mg INHALATION BID PRN 08/22/18 12/03/18 History bupropion HCl [Wellbutrin SR] 150 mg PO BID 08/22/18 12/03/18 History cholecalciferol (vitamin D3) 1,000 unit PO BID 08/22/18 12/03/18 History [Vitamin D3] clopidogrel [Plavix] 75 mg PO QAM 08/22/18 12/03/18 History finasteride [Proscar] 5 mg PO QAM 08/22/18 12/03/18 History furosemide [Lasix] 20 mg PO DAILY PRN 08/22/18 12/03/18 History gabapentin [Neurontin] 300 mg PO BID 08/22/18 12/03/18 History ipratropium-albuterol 3 ml INHALATION QID PRN 08/22/18 12/03/18 History latanoprost [Xalatan] 1 drp OPB HS 08/22/18 12/03/18 History metformin [Glucophage] 1,000 mg PO BID 08/22/18 12/03/18 History metoprolol tartrate [Lopressor] 100 mg PO BID 08/22/18 12/03/18 History nitroglycerin [Nitrostat] 0.4 mg SUBLINGUAL UD PRN 08/22/18 12/03/18 History polyethylene glycol 3350 [Miralax] 17 g PO Q OTHER DAY 08/22/18 12/03/18 History rosuvastatin [Crestor] 40 mg PO QAM 08/22/18 12/03/18 History trospium 60 mg PO HS 08/22/18 12/03/18 History aspirin [Aspir-81] 81 mg PO QPM #0 tab 09/14/18 12/03/18 Rx Past Med/Surg History Medical History Hypertension Depression COPD (chronic obstructive pulmonary disease) Severe, per pulm 08/07/18 "He clearly needs oxygen both at night and with any exertion. We are hopeful to get him a portable oxygen concentrator." PT was at 95% RA at PAT 09/07/18 Hypercholesterolemia BPH (benign prostatic hyperplasia) CAD (coronary artery disease) Acute [place] 03/2011, complicated by 3 episodes of v fib req electrical shock.. ZITA x 2 to RCA. CKD (chronic kidney disease) stage 3, GFR 30-59 ml/min Diabetes mellitus, type 2 Kidney stones Myocardial Infarction 7 YEARS AGO On home oxygen therapy 2L N/C prn Peripheral neuropathy Sleep apnea oxygen 2L n/c prn Surgical History History of bilateral cataract extraction History of cardiac cath 7 YEARS AGO (3 STENTS INSERTED) History of lithotripsy History of tooth extraction Hx of transurethral resection of prostate S/P cystoscopy with ureteral stent placement 08/23/2018. MAC. No issues. Family History Mother Family history of diabetes mellitus Coronary heart disease [place] Father Coronary heart disease [place] Other No family history of adverse response to anesthesia Social History Preferred Language: [place] Communication Ability: Effective Beliefs That Will Affect Care: None Current Living Situation: Spouse Feels Safe at Home: Yes Smoking Status: Former smoker Hx Alcohol Use: No Hx Substance Use: No Review of Systems Pertinent positives and negatives reviewed in HPI--all others negative Physical Exam Vital Signs (Past 24 Hours): Last Vital Signs Temp 37.6 C H 12/04/18 11:40 Pulse 84 12/04/18 15:05 Resp 22 12/04/18 15:05 BP 125/79 12/04/18 15:05 Pulse Ox 94 12/04/18 15:05 Constitutional: WD/WN, vitals as above + obese Eyes: normal visual machado by confrontation and + anicteric sclerae Neck: normal visual inspection and trachea midline Respiratory: normal respiratory effort; no respiratory distress Auscultation: + crackles and + wheezes Cardiovascular: Rate/Rhythm: regular rate and regular rhythm Gastrointestinal (Abdomen): Inspection/Auscultation: abdomen not distended Percussion/Palpation: abdomen soft; abdomen nontender Musculoskeletal: Head/Neck/Chest: normocephalic and head atraumatic negative for edema, peripheral pulses intact Skin: no rashes, warm and dry Neurologic: awake; not confused Speech / Cognition: normal speech Psychiatric: A+Ox3, euthymic affect Results & Data Diagnostic Findings CXR: L PNA CT head: neg for acute ECG Rhythm: normal sinus Code Status & VTE Plan Code Status Full code VTE Prophylaxis Plan VTE Prophylaxis will be ordered: Yes (1) PNA (pneumonia) Laterality: unspecified laterality Lung location: unspecified part of lung Pneumonia type: due to unspecified organism Qualified Code(s): J18.9 - Pneumonia, unspecified organism
[2018-12-04] MEDS ORDERED: ACETAMINOPHEN 325 MG TAB PO PRN (16:49)
[2018-12-04] MEDS ORDERED: GLUCOSE 40% GEL 15 GM TUBE PO PRN (16:49)
[2018-12-04] MEDS ORDERED: CARBOHYDRATES FOR HYPOGLYCEMIA PO PRN (16:49)
[2018-12-04] MEDS ORDERED: FUROSEMIDE 20 MG TAB PO PRN (16:49)
[2018-12-04] MEDS ORDERED: GLUCOSE 10 TABS/TUBE PO PRN (16:49)
[2018-12-04] MEDS ORDERED: GLUCAGON FOR INJ 1 MG VIAL SQ PRN (16:49)
[2018-12-04] MEDS ORDERED: MAGNESIUM HYDROXIDE SUSP 30 ML UDC PO PRN (16:49)
[2018-12-04] MEDS ORDERED: ONDANSETRON INJ 2 MG/ML 2 ML VIAL IV PRN (16:49)
[2018-12-04] MEDS ORDERED: ALBUT/IPRATROP 3MG/0.5MG NEB 3 ML VIAL INH PRN (16:49)
[2018-12-04] MEDS ORDERED: DEXTROSE 50% 50 ML SYRINGE IV PRN (16:49)
[2018-12-04] MEDS ORDERED: NITROGLYCERIN SL 0.4 MG/TAB TAB SL PRN (16:49)
[2018-12-04] MEDS ORDERED: BUDESONIDE 0.5 MG/2 ML VIAL (PULMICORT) INH PRN (16:49)
[2018-12-04] MEDS ORDERED: METFORMIN HCL 500 MG TAB PO SCH (17:30)
[2018-12-04] MEDS ORDERED: LEVOFLOXACIN CONSULT ACTIVE PRN (17:39)
--- NOTE | 2018-12-04 17:42 | Emergency Department Note ---
Entered by Ca Mitchell acting as a scribe for Micah Danielle History of Present Illness General Chief complaint: Illness Stated complaint: sob/weakness Time Seen by Provider: 12/04/18 12:24 Source: patient History of Present Illness Provider complaint: shortness of breath Onset (ago): hour(s) (today) Location: chest Pain Consistency: + constant Quality: + other (shortness of breath) Associated symptoms: + denies other symptoms (denies diarrhea), + cough and + weakness (leg); no nausea/vomiting The patient is a 68 year old male who presents to the Emergency Room with complaints of constant shortness of breath today. He reports having a cough and leg weakness but denies nausea, vomiting, and diarrhea. The patient states that he has COPD. He denies a history of intubation or being in the ICU secondary to his breathing. He states that he has been using inhalers as needed as states that he has needed them more than usual. He states that he wears 2L of Oxygen at home as needed. He states that he has not stayed in the hospital recently. The patient denies a history of cancer and dialysis. Home Medications Home Medications Medication Instructions Recorded Confirmed Type Breo Ellipta 1 inh INHALATION DAILY PRN 08/22/18 12/04/18 History budesonide 0.5 mg INHALATION BID PRN 08/22/18 12/04/18 History bupropion HCl [Wellbutrin SR] 150 mg PO BID 08/22/18 12/04/18 History cholecalciferol (vitamin D3) 1,000 unit PO BID 08/22/18 12/04/18 History [Vitamin D3] clopidogrel [Plavix] 75 mg PO QAM 08/22/18 12/04/18 History finasteride [Proscar] 5 mg PO QAM 08/22/18 12/04/18 History furosemide [Lasix] 20 mg PO DAILY PRN 08/22/18 12/04/18 History gabapentin [Neurontin] 300 mg PO BID 08/22/18 12/04/18 History ipratropium-albuterol 3 ml INHALATION QID PRN 08/22/18 12/04/18 History latanoprost [Xalatan] 1 drp OPB HS 08/22/18 12/04/18 History metformin [Glucophage] 1,000 mg PO BID 08/22/18 12/04/18 History metoprolol tartrate [Lopressor] 100 mg PO BID 08/22/18 12/04/18 History nitroglycerin [Nitrostat] 0.4 mg SUBLINGUAL UD PRN 08/22/18 12/04/18 History polyethylene glycol 3350 [Miralax] 17 g PO Q OTHER DAY 08/22/18 12/04/18 History rosuvastatin [Crestor] 40 mg PO QAM 08/22/18 12/04/18 History trospium 60 mg PO HS 08/22/18 12/04/18 History aspirin [Aspir-81] 81 mg PO QPM #0 tab 09/14/18 12/04/18 Rx Allergies Allergy/AdvReac Type Severity Reaction Status Date / Time mivacurium AdvReac Intermediate diarrhea Verified 12/04/18 15:07 Past Med/Surg History Medical History Hypertension Depression COPD (chronic obstructive pulmonary disease) Severe, per pulm 08/07/18 "He clearly needs oxygen both at night and with any exertion. We are hopeful to get him a portable oxygen concentrator." PT was at 95% RA at PAT 09/07/18 Hypercholesterolemia BPH (benign prostatic hyperplasia) CAD (coronary artery disease) Acute [place] 03/2011, complicated by 3 episodes of v fib req electrical shock.. D ES x 2 to RCA. CKD (chronic kidney disease) stage 3, GFR 30-59 ml/min Diabetes mellitus, type 2 Kidney stones Myocardial Infarction 7 YEARS AGO On home oxygen therapy 2L N/C prn Peripheral neuropathy Sleep apnea oxygen 2L n/c prn Surgical History History of bilateral cataract extraction History of cardiac cath 7 YEARS AGO (3 STENTS INSERTED) History of lithotripsy History of tooth extraction Hx of transurethral resection of prostate S/P cystoscopy with ureteral stent placement 08/23/2018. MAC. No issues. Social History Preferred Language: Telugu Communication Ability: Effective Beliefs That Will Affect Care: None Current Living Situation: Spouse Other Information That Helps Us Care for You: No Feels Safe at Home: Yes Smoking Status: Former smoker Hx Alcohol Use: No Hx Substance Use: No Review of Systems See HPI for pertinent positives & negatives. and A total of 10 systems reviewed and were otherwise negative Physical Exam Vital Signs Vital Signs - 24 hr 12/04/18 11:40 12/04/18 12:07 12/04/18 12:42 Temperature 37.6 C H Temperature Source Oral Sepsis Recent Fever Within 48 Hours No Sepsis New/Unexplained Change in Mental Status No Sepsis Action Taken by Nursing No Action Required Pulse Rate 81 Pulse Rate [Apical] 79 Pulse Rhythm [Apical] Regular Pulse Strength [Apical] Normal Respiratory Rate 18 21 Respiratory Effort / Characteristics Non-Labored Spontaneous Respiratory Depth Normal Respiratory Pattern Regular Blood Pressure 101/78 Blood Pressure [Right Arm] 125/76 Blood Pressure Mean 85 Blood Pressure Mean [Right Arm] 92 Blood Pressure Position [Right Arm] Pulse Oximetry 91 91 95 Oxygen Delivery Method Room Air Room Air Room Air 12/04/18 14:11 12/04/18 14:30 12/04/18 15:05 Temperature Temperature Source Sepsis Recent Fever Within 48 Hours Sepsis New/Unexplained Change in Mental Status Sepsis Action Taken by Nursing Pulse Rate Pulse Rate [Apical] 81 87 84 Pulse Rhythm [Apical] Regular Pulse Strength [Apical] Normal Respiratory Rate 18 18 22 Respiratory Effort / Characteristics Non-Labored Spontaneous Respiratory Depth Normal Respiratory Pattern Regular Blood Pressure Blood Pressure [Right Arm] 115/65 130/88 125/79 Blood Pressure Mean Blood Pressure Mean [Right Arm] 81 102 94 Blood Pressure Position [Right Arm] Sitting Pulse Oximetry 92 93 94 Oxygen Delivery Method Room Air Room Air Room Air 12/04/18 17:18 Temperature Temperature Source Sepsis Recent Fever Within 48 Hours Sepsis New/Unexplained Change in Mental Status Sepsis Action Taken by Nursing Pulse Rate Pulse Rate [Apical] Pulse Rhythm [Apical] Pulse Strength [Apical] Respiratory Rate Respiratory Effort / Characteristics Non-Labored Short of Breath Respiratory Depth Respiratory Pattern Blood Pressure Blood Pressure [Right Arm] Blood Pressure Mean Blood Pressure Mean [Right Arm] Blood Pressure Position [Right Arm] Pulse Oximetry Oxygen Delivery Method Room Air Physical Exam GENERAL: He is oriented to person, place, and time. He appears well-developed and well-nourished. He does not appear distressed. HENT: Exam performed. - Head: Normocephalic and atraumatic. - Right Ear: External ear normal. No mastoid tenderness. - Left Ear: External ear normal. No mastoid tenderness. - Mouth/Throat: The oropharynx is clear and moist. No trismus in the jaw. No dental abscesses or uvula swelling. No oropharyngeal exudate or tonsillar abscesses. EYES: Conjunctivae and EOM are normal. Pupils are equal, round, and reactive to light. Right eye exhibits no discharge. Left eye exhibits no discharge. No scleral icterus. NECK: Normal range of motion. Neck supple. No JVD present. No spinous process tenderness present. No carotid bruit present. No rigidity. No tracheal deviation and normal range of motion present. No Brudzinski's sign and no Kernig's sign no porfirio. CV: Normal rate, regular rhythm, normal heart sounds and intact distal pulses. There is no peripheral edema. Palpable radial pulses bue. PULM/CHEST: Diminished breath sounds bilaterally. Diffuse expiratory wheezes bilaterally. No respiratory distress. He has no rales. - Chest Wall: He exhibits no tenderness. ABD: The abdomen is soft. Bowel sounds are normal. He has no distension. No mass is present. There is no tenderness. There is no rebound, no guarding, no Monge's sign and no tenderness at McBurney's point. Rovsig negative. MUSC/SKEL: Normal range of motion. There is no peripheral edema, tenderness or deformity. LYMPH: No cervical adenopathy. NEURO: He is alert and oriented to person, place, and time. He has normal strength. No cranial nerve deficit or sensory deficit. Coordination and gait normal. GCS eye subscore is 4. GCS verbal subscore is 5. GCS motor subscore is 6. Cerebellar tests wnl. SKIN: Skin is warm and dry. He is not diaphoretic. PSYCH: He has a normal mood and affect. Behavior is normal. Judgment and thought content normal. Course 1229: The patient was evaluated in room A10, and a complete history and ph ysical examination were performed. 1441: Vital signs stable. Labs show a leukocytosis of 16.97. Chest x-ray shows an infiltrate in the left base. Patient has no risk factors for age. Patient be treated with Levaquin IV antibiotics. Despite multiple DuoNeb treatments in the emergency department, the patient continues to wheeze. We will admit the patient for COPD exacerbation/pneumonia. I discussed the patient's case with Dr. Jaime Garcia who will evaluate the patient for further management. 1446: I updated the patient who verbalized agreement and understanding of the treatment plan. Consultations Consultation #1: Dr. Giron-[place]. Garcia Time: 14:41 Administered Medications Discontinued Medications Albuterol (Duoneb) 3 ml NEB NOW STA Stop: 12/04/18 12:34 Last Admin: 12/04/18 12:41 Dose: 3 ml Documented by: [id number] Albuterol (Duoneb) 3 ml NEB NOW STA Stop: 12/04/18 14:14 Last Admin: 12/04/18 14:30 Dose: 3 ml Documented by: [id number] Albuterol (Duoneb) 3 ml NEB NOW STA Stop: 12/04/18 14:15 Last Admin: 12/04/18 14:30 Dose: 3 ml Documented by: [id number] Levofloxacin/Dextrose (Levaquin/D5w) 750 mg in 150 mls @ 100 mls/hr IV NOW STA Stop: 12/04/18 14:54 Last Infusion: 12/04/18 15:51 Dose: 0 mls/hr Documented by: [id number] Admin: 12/04/18 14:11 Dose: 100 mls/hr Documented by: [id number] Prednisone (Prednisone) 50 mg PO NOW STA Stop: 12/04/18 12:34 Last Admin: 12/04/18 12:41 Dose: 50 mg Documented by: [id number] Medical Decision Making Medical Records Attestation: I reviewed the patient's medical records. Home Medications Current Medication List: was personally reviewed by me Laboratory Data Attestation: I reviewed the patient's lab results. Result diagrams: 12/04/18 11:39 12/04/18 11:39 Lab Results 12/04/18 12/04/18 12/04/18 Range/Units 11:39 11:39 11:39 WBC 16.97 H (4.8-10.8) K/uL RBC 5.12 (4.7-6.1) M/uL Hgb 12.7 L (14.0-18.0) g/dL Hct 41.6 L (42-52) % MCV 81.3 (80-100) fL MCH 24.8 L (25-34) pg MCHC 30.5 L (32-36) g/dL RDW Std Deviation 52.7 H (36.4-46.3) fL RDW Coeff of Cirilo 17.9 H (11.5-14.5) % Plt Count 235 (130-400) K/uL MPV 9.7 (7.4-10.4) fL Immature Gran % (Auto) 0.3 % Neut % (Auto) 84.0 % Lymph % (Auto) 4.4 % [place] % (Auto) 11.0 % Eos % (Auto) 0.1 % Baso % (Auto) 0.2 % Immature Gran # (Auto) 0.05 H (0.00-0.02) K/uL Neut # (Auto) 14.27 H (1.4-6.5) K/uL Lymph # (Auto) 0.75 L (1.2-3.4) K/uL [place] # (Auto) 1.86 H (0.11-0.59) K/uL Eos # (Auto) 0.01 (0-0.5) K/uL Baso # (Auto) 0.03 (0-0.2) K/uL PT 10.1 (9.0-12.0) Seconds INR 1.0 (0.9-1.1) APTT 21.9 (21.0-31.0) Seconds PTT Ratio 0.8 Sodium 140 (136-145) mmol/L Potassium 4.3 (3.5-5.1) mmol/L Chloride 109 H (98-107) mmol/L Carbon Dioxide 22 (21-32) mmol/L Anion Gap 9.0 (3-11) BUN 22 H (7-18) mg/dl Creatinine 2.43 H (0.6-1.4) mg/dl Est Cr Clr Drug Dosing 40.9 ml/min Est GFR ( Amer) 30.9 Est GFR (Non-Af Amer) 26.7 BUN/Creatinine Ratio 8.9 L (10-20) Glucose 182 H (70-99) mg/dl POC Glucose (70-99) Calcium 9.2 (8.5-10.1) mg/dl Total Bilirubin 0.5 (0.2-1) mg/dl AST 11 L (15-37) U/L ALT 20 (12-78) U/L Alkaline Phosphatase 105 (45-117) U/L Total Protein 7.1 (6.4-8.2) gm/dl Albumin 3.0 L (3.4-5.0) gm/dl Globulin 4.1 H (2.5-4.0) gm/dl Albumin/Globulin Ratio 0.7 L (0.9-2) Influenza Type A Ag (Neg) Influenza Type B Ag (Neg) 12/04/18 12/04/18 Range/Units 11:39 16:40 WBC (4.8-10.8) K/uL RBC (4.7-6.1) M/uL Hgb (14.0-18.0) g/dL Hct (42-52) % MCV (80-100) fL MCH (25-34) pg MCHC (32-36) g/dL RDW Std Deviation (36.4-46.3) fL RDW Coeff of Cirilo (11.5-14.5) % Plt Count (130-400) K/uL MPV (7.4-10.4) fL Immature Gran % (Auto) % Neut % (Auto) % Lymph % (Auto) % [place] % (Auto) % Eos % (Auto) % Baso % (Auto) % Immature Gran # (Auto) (0.00-0.02) K/uL Neut # (Auto) (1.4-6.5) K/uL Lymph # (Auto) (1.2-3.4) K/uL [place] # (Auto) (0.11-0.59) K/uL Eos # (Auto) (0-0.5) K/uL Baso # (Auto) (0-0.2) K/uL PT (9.0-12.0) Seconds INR (0.9-1.1) APTT (21.0-31.0) Seconds PTT Ratio Sodium (136-145) mmol/L Potassium (3.5-5.1) mmol/L Chloride (98-107) mmol/L Carbon Dioxide (21-32) mmol/L Anion Gap (3-11) BUN (7-18) mg/dl Creatinine (0.6-1.4) mg/dl Est Cr Clr Drug Dosing ml/min Est GFR ( Amer) Est GFR (Non-Af Amer) BUN/Creatinine Ratio (10-20) Glucose (70-99) mg/dl POC Glucose 203 H (70-99) Calcium (8.5-10.1) mg/dl Total Bilirubin (0.2-1) mg/dl AST (15-37) U/L ALT (12-78) U/L Alkaline Phosphatase (45-117) U/L Total Protein (6.4-8.2) gm/dl Albumin (3.4-5.0) gm/dl Globulin (2.5-4.0) gm/dl Albumin/Globulin Ratio (0.9-2) Influenza Type A Ag Neg for Influ A (Neg) Influenza Type B Ag Neg for Influ B (Neg) Imaging Data Radiologist's Impression: Radiology results as stated below per my review and the radiologist's interpretation: XR chest 1V portable CLINICAL HISTORY: SOB, COPD dyspnea COMPARISON STUDY: 09/08/2016 FINDINGS: Focal pleural reactive change and or infiltrate lateral aspect left base. Mild emphysematous change. Mild stable cardiomegaly. IMPRESSION: Focal parenchymal infiltrate/pleural reactive change lateral aspect left base. Mild Baseline emphysematous change. The above report was generated using voice recognition software. It may contain grammatical, syntax or spelling errors. Electronically signed by: Francisco Saez M.D. 12/04/2018 12:[address] head/brain wo con CT DOSE: 614.27 mGy.cm HISTORY: Mental status change weakness TECHNIQUE: Multiaxial CT images of the head were performed without the use of intravenous contrast. A dose lowering technique was utilized adhering to the principles of ALARA. Comparison: None. Findings: The paranasal sinuses and mastoid air cells are clear. The calvarium and skull base are intact. The ventricles and sulci are within normal limits. There is no mass, hematoma, midline shift, or acute infarct. Age-related atrophy and chronic small vessel change. Impression: No acute intracranial abnormality. Age-related atrophy and chronic small vessel change The above report was generated using voice recognition software. It may contain grammatical, syntax or spelling errors. Electronically signed by: Francisco Saez M.D. 12/04/2018 1:39 PM ECG Data Attestation: I personally reviewed and interpreted this ECG as follows: Indication: SOB/dyspnea Rate (beats per minute): 80 Rhythm: sinus rhythm Findings: + other (VA, QRS, QTC within normal limits ); no ST depression, no ST elevation and no acute ischemic change Blood Pressure Blood Pressure Findings: Normal blood pressure MDM Narrative Vital signs stable. Labs show a leukocytosis of 16.97. Chest x-ray shows an infiltrate in the left base. Patient has no risk factors for age. Patient be treated with Levaquin IV antibiotics. Despite multiple DuoNeb treatments in the emergency department, the patient continues to wheeze. We will admit the patient for COPD exacerbation/pneumonia. I discussed the patient's case with Dr. Jaime Garcia who will evaluate the patient for further management. Impression & Plan PNA (pneumonia), COPD exacerbation Discharge Plan Visit Data *Final* Discharge Date/Time: 12/04/18 16:27 Chief Complaint: Illness Stated Complaint: sob/weakness ED Provider: Micah Danielle Discharge Problem: PNA (pneumonia), COPD exacerbation Patient Disposition: Admitted As Inpatient Discharge Instructions Interventions: ED Discharge Assessment Last Done: 12/04/18 16:27 Discharge Problem: PNA (pneumonia) Qualifiers: Pneumonia type: due to unspecified organism Laterality: unspecified laterality Lung location: unspecified part of lung Qualified Code(s): J18.9 - Pneumonia, unspecified organism The scribe's documentation has been prepared under my direction and personally reviewed by me in its entirety. I confirm that the note above accurately reflects all work, treatment, procedures, and medical decision making performed by me.
[2018-12-04] MEDS: INSULIN ASPART 100 UNITS/ML 3 ML PEN SC SCH ×2 (18:20→20:37)
[2018-12-04] MEDS: BuPROPion SR 150 MG TABCR PO SCH (18:22)
[2018-12-04] MEDS: methylPREDNISolone 40 MG in SYRINGE 0 ML IV SCH (19:47)
[2018-12-04] MEDS: ASPIRIN 81 MG ECTAB PO SCH (19:48)
[2018-12-04] MEDS: METOPROLOL TARTRATE 100 MG TAB PO SCH (19:48)
[2018-12-04] MEDS: LATANOPROST 0.005% OP SOLN 2.5 ML BTL OPB SCH (19:48)
[2018-12-04] MEDS: CHOLECALCIFEROL 1,000 UNITS TAB PO SCH (19:49)
[2018-12-04] MEDS: GABAPENTIN 300 MG CAP PO SCH (19:49)
[2018-12-04] MEDS: ALBUT/IPRATROP 3MG/0.5MG NEB 3 ML VIAL NEB SCH ×2 (19:59→23:22)
[2018-12-04] MEDS: HEPARIN SOD 5,000 UNIT/0.5 ML VIAL SQ SCH (20:37)
[2018-12-04 21:38] LABS: Appearance Urine Cloudy (Clear); Bacteria Urine Automated Negative (Negative); Bilirubin Urine Negative (Negative); Blood Urine 3+ (Negative); Color Urine Dark Yellow; Glucose Urine UA 2+ (Negative); Ketones Urine Trace (Negative); Leukocyte Esterase Urine 2+ (Negative); Nitrite Urine Negative (Negative); Protein Urine 2+ (Negative); RBC Urine Automated >30 /hpf (0-4); Urobilinogen Urine Negative (Negative); WBC Urine Automated >30 /hpf (0-5); pH Urine 5.5 (4.5-7.5)
[2018-12-05] MEDS: ALBUT/IPRATROP 3MG/0.5MG NEB 3 ML VIAL NEB SCH ×6 (03:16→23:12)
[2018-12-05] MEDS: HEPARIN SOD 5,000 UNIT/0.5 ML VIAL SQ SCH ×3 (05:38→21:22)
[2018-12-05 06:24] LABS: Hematocrit (blood only) 36.6 % (42-52); Hemoglobin 11.1 g/dL (14.0-18.0); Immature Granulocytes # (auto) 0.05 K/uL (0.00-0.02); Immature Granulocytes % (auto) 0.3 %; Lymphocytes # (auto) 0.81 K/uL (1.2-3.4); Lymphocytes % (auto) 5.3 %; Mean Corpuscular Hgb Conc 30.3 g/dL (32-36); Mean Corpuscular Volume 79.2 fL (80-100); Mean Platelet Volume 9.4 fL (7.4-10.4); Monocytes # (auto) 1.51 K/uL (0.11-0.59); Neutrophils # (auto) 12.79 K/uL (1.4-6.5); Neutrophils % (auto) 84.4 %; Platelet Count 188 K/uL (130-400); RDW Coefficient of Variation 17.9 % (11.5-14.5); Red Blood Count 4.62 M/uL (4.7-6.1); White Blood Count 15.16 K/uL (4.8-10.8)
[2018-12-05 06:42] LABS: BUN Creatinine Ratio 11.1 (10-20); Calcium 9.4 mg/dl (8.5-10.1); Creatinine Clr Calc Pharmacy 41.1 ml/min; Est GFR (African American) 31.1; Est GFR (Non-African American) 26.8; Potassium 4.1 mmol/L (3.5-5.1)
[2018-12-05 07:26] LABS: Estimated Average Glucose 174 mg/dl; Hemoglobin A1C 7.7 % (4.5-5.6)
[2018-12-05] MEDS: methylPREDNISolone 40 MG in SYRINGE 0 ML IV SCH ×2 (07:40→21:18)
[2018-12-05] MEDS: ROSUVASTATIN CALCIUM 20 MG TAB PO SCH (07:41)
[2018-12-05] MEDS: CLOPIDOGREL BISULFATE 75 MG TAB PO SCH (07:41)
[2018-12-05] MEDS: CHOLECALCIFEROL 1,000 UNITS TAB PO SCH ×2 (07:41→21:20)
[2018-12-05] MEDS: GABAPENTIN 300 MG CAP PO SCH ×2 (07:41→21:18)
[2018-12-05] MEDS: BuPROPion SR 150 MG TABCR PO SCH ×2 (07:42→17:18)
[2018-12-05] MEDS: METOPROLOL TARTRATE 100 MG TAB PO SCH ×2 (07:42→21:19)
[2018-12-05] MEDS: FINASTERIDE 5 MG TAB PO SCH (07:42)
[2018-12-05] MEDS: INSULIN ASPART 100 UNITS/ML 3 ML PEN SC SCH ×4 (08:31→22:08)
[2018-12-05] MEDS ORDERED: POLYETHYLENE (MIRALAX) 17 GM PACK PO SCH (09:00)
[2018-12-05] MEDS: ASPIRIN 81 MG ECTAB PO SCH (21:19)
[2018-12-05] MEDS: LATANOPROST 0.005% OP SOLN 2.5 ML BTL OPB SCH (21:21)
--- NOTE | 2018-12-05 22:39 | Hospitalist Progress Note ---
Date of Service December 05, 2018 Assessment & Plan (1) PNA (pneumonia): Noted on CXR Levaquin started in the ED, will continue Elevated WBC, afebrile. (2) COPD exacerbation: Likely exacerbated due to PNA Nebs, steroids in the ED, will continue with nebs, solumedrol 40mg BID Flu neg (3) Weakness: Uncertain etiology, possibly related to PNA/COPD status; May also be related to his diabetic neuropathy CT head neg for acute No major electrolyte abn PT Monitor with above tx will recommend rehab and possibly neuro consult (4) Hypoxia: home O2 PRN at baseline Monitor (5) Leg swelling: Takes PRN lasix Will hold on heavy IVF to avoid overload (6) Diabetes mellitus: continue home meds SSI PRN A1c 7.7 (7) CKD (chronic kidney disease): Baseline cr is approx 2.0, 2.4 on admission Monitor (8) BPH (benign prostatic hyperplasia): continue home meds (9) Peripheral neuropathy: continue home meds (10) Hypertension: continue home meds (11) Depression: continue home meds (12) Hypercholesterolemia: continue home meds (13) Urinary tract infection: Patient will be on levofloxacin. Awaiting urine culture. (14) DVT prophylaxis: SCDs, Heparin for DVT proph Spent 35 minutes in management of patient. This included discussion with . Subjective Patient reports feeling better. His main concern is his lower extremity weakness and lower extremity neuropathic pain. Patient also is complaing of dysuria. He states it harris when he pees. Patient denies any fever, chills, nausea, vomiting. Physical Exam Vital Signs (Past 24 Hours): Last Vital Signs Temp 36.8 C 12/05/18 16:09 Pulse 83 12/05/18 19:06 Resp 16 12/05/18 19:06 BP 127/61 12/05/18 16:09 Pulse Ox 96 12/05/18 19:06 Physical Exam: Constitutional: WD/WN, vitals as above + obese Eyes: normal visual machado by confrontation and + anicteric sclerae Neck: normal visual inspection and trachea midline Respiratory: normal respiratory effort; no respiratory distress Auscultation: mild rhonchi Cardiovascular: Rate/Rhythm: regular rate and regular rhythm Gastrointestinal (Abdomen): Inspection/Auscultation: abdomen not distended Percussion/Palpation: abdomen soft; abdomen nontender Musculoskeletal: Head/Neck/Chest: normocephalic and head atraumatic negative for edema, peripheral pulses intact Skin: no rashes, warm and dry Neurologic: awake; not confused Speech / Cognition: normal speech Psychiatric: A+Ox3, euthymic affect (1) PNA (pneumonia) Laterality: unspecified laterality Lung location: unspecified part of lung Pneumonia type: due to unspecified organism Qualified Code(s): J18.9 - Pneumonia, unspecified organism
[2018-12-06] MEDS: ALBUT/IPRATROP 3MG/0.5MG NEB 3 ML VIAL NEB SCH ×4 (03:46→15:47)
[2018-12-06] MEDS: HEPARIN SOD 5,000 UNIT/0.5 ML VIAL SQ SCH ×2 (06:08→13:15)
[2018-12-06] MEDS: methylPREDNISolone 40 MG in SYRINGE 0 ML IV SCH (08:12)
[2018-12-06] MEDS: CHOLECALCIFEROL 1,000 UNITS TAB PO SCH (08:13)
[2018-12-06] MEDS: GABAPENTIN 300 MG CAP PO SCH (08:13)
[2018-12-06] MEDS: CLOPIDOGREL BISULFATE 75 MG TAB PO SCH (08:13)
[2018-12-06] MEDS: BuPROPion SR 150 MG TABCR PO SCH ×2 (08:13→16:48)
[2018-12-06] MEDS: METOPROLOL TARTRATE 100 MG TAB PO SCH (08:13)
[2018-12-06] MEDS: ROSUVASTATIN CALCIUM 20 MG TAB PO SCH (08:13)
[2018-12-06] MEDS: FINASTERIDE 5 MG TAB PO SCH (08:14)
[2018-12-06] MEDS: INSULIN ASPART 100 UNITS/ML 3 ML PEN SC SCH ×3 (08:40→17:42)
[2018-12-06] MEDS ORDERED: LEVOFLOXACIN/D5W 750 MG/150 ML BAG IV SCH (14:00)
[2018-12-06 14:07] LABS: Hematocrit (blood only) 38.4 % (42-52); Hemoglobin 11.7 g/dL (14.0-18.0); Mean Corpuscular Hgb Conc 30.5 g/dL (32-36); Mean Corpuscular Volume 80.5 fL (80-100); Mean Platelet Volume 9.6 fL (7.4-10.4); Platelet Count 234 K/uL (130-400); RDW Coefficient of Variation 18.1 % (11.5-14.5); RDW Standard Deviation 53.2 fL (36.4-46.3); Red Blood Count 4.77 M/uL (4.7-6.1); White Blood Count 14.88 K/uL (4.8-10.8)
[2018-12-06 14:13] LABS: BUN Creatinine Ratio 11.1 (10-20); Calcium 9.3 mg/dl (8.5-10.1); Est GFR (African American) 26.1; Est GFR (Non-African American) 22.5; Potassium 4.3 mmol/L (3.5-5.1)
[2018-12-06 14:27] LABS: Beta-Hydroxybutyrate 1.46 mg/dl (0.2-2.81)
--- NOTE | 2018-12-14 10:51 | Discharge Summary ---
Date of Service December 06, 2018 Admission HPI Per Admitting Provider 68 y/o M c/o sudden onset weakness. Pt states that he was at his usual yesterday. He was able to ambulate as he usually would. Pt always has SOB at baseline, but his breathing was not worse than usual. No issues with PO intake. He states that he was trying to get out of bed today around 10:30a and fell to the floor. "My legs just wouldn't hold me." His was there and could not get him back into bed. EMS was called and they did get him back into bed, however he states he was too weak to help them. This is unusual for him. Pt denies fever, chest pain, abd pain, n/v/c/d, LE pain or swelling. Principal Diagnosis COPD exacerbation/ Community acquired pneumonia Discharge Exam Constitutional: WD/WN, vitals as above + obese Eyes: normal visual machado by confrontation and + anicteric sclerae Neck: normal visual inspection and trachea midline Respiratory: normal respiratory effort; no respiratory distress Auscultation: mild rhonchi Cardiovascular: Rate/Rhythm: regular rate and regular rhythm Gastrointestinal (Abdomen): Inspection/Auscultation: abdomen not distended Percussion/Palpation: abdomen soft; abdomen nontender Musculoskeletal: Head/Neck/Chest: normocephalic and head atraumatic negative for edema, peripheral pulses intact Skin: no rashes, warm and dry Neurologic: awake; not confused Speech / Cognition: normal speech Psychiatric: A+Ox3, euthymic affect Discharge Data Allergies Allergy/AdvReac Type Severity Reaction Status Date / Time mivacurium AdvReac Intermediate diarrhea Verified 12/04/18 15:07 Consultations 12/04/18 14:41 ED Decision to Admit Stat 12/04/18 16:49 Consult Case Management - Discharge Planning Routine Ordered Studies 12/04/18 12:33 CT head/brain wo con Stat Hospital Course (1) PNA (pneumonia): Noted on CXR Levaquin started in the ED, will continue Elevated WBC, afebrile. Will continue levofloxacin for 4 more days for a total of 7 days. Will also discharge on prednisone taper. (2) COPD exacerbation: Likely exacerbated due to PNA Nebs, steroids in the ED, will continue with nebs, solumedrol 40mg BID Flu neg (3) Weakness: Uncertain etiology, possibly related to PNA/COPD status; May also be related to his diabetic neuropathy CT head neg for acute No major electrolyte abn PT Monitor with above tx will recommend rehab and possibly neuro consult (4) Hypoxia: home O2 PRN at baseline Monitor (5) Leg swelling: Takes PRN lasix Will hold on heavy IVF to avoid overload (6) Diabetes mellitus: continue home meds SSI PRN A1c 7.7 (7) CKD (chronic kidney disease): Baseline cr is approx 2.0, 2.4 on admission Monitor (8) BPH (benign prostatic hyperplasia): continue home meds (9) Peripheral neuropathy: continue home meds (10) Hypertension: continue home meds (11) Depression: continue home meds (12) Hypercholesterolemia: continue home meds (13) Urinary tract infection: Patient will be on levofloxacin. (14) DVT prophylaxis: SCDs, Heparin for DVT proph Total Time Total Time Spent Total Time Spent (In Minutes): 31 Total Time Includes: Examination of the Patient, Discharge Planning and Medication Reconciliation Discharge Plan Discharge Items Patient Disposition: Transfer Inpatient Rehab Fac Reason For Visit: PNA/COPD Discharge Diagnosis: Pneumonia/ UTI Discharge Goals: Decrease discomfort Activity: Resume your previous activity Non-emergency contact: Primary Care Provider Call non-emergency contact if: you have any medication questions Follow-up/Referrals: Sussy Pappas MD [Primary Care Provider] - Diet: Carb Consistent or DM2 Addtl Provider Instructions: Continue levofloxacin. First dose on 12/08 Prednisone taper start at 4 tablets, taper by 1 tablet every 2 days. Followup with PCP in 1-2 weeks F/U with Neurology at [facility] in 2-4 weeks to eval lower extremity weakness if no improveemnt from rehab Prescriptions: New prednisone 10 mg tablet 10 mg PO DAILY Qty: 20 RF: 0 Continued latanoprost [Xalatan] 0.005 % drops 1 drp OPB HS RF: 0 bupropion HCl [Wellbutrin SR] 150 mg tablet sustained-release 12 hr 150 mg PO BID RF: 0 ipratropium-albuterol 0.5 mg-3 mg(2.5 mg base)/3 mL Solution For Nebulization 3 ml INHALATION QID PRN (Reason: Shortness Of Breath) RF: 0 polyethylene glycol 3350 [Miralax] 17 gram Powder In Packet 17 g PO Q OTHER DAY RF: 0 metoprolol tartrate [Lopressor] 100 mg tablet 100 mg PO BID RF: 0 clopidogrel [Plavix] 75 mg tablet 75 mg PO QAM RF: 0 metformin [Glucophage] 1,000 mg tablet 1,000 mg PO BID RF: 0 nitroglycerin [Nitrostat] 0.4 mg Tablet, Sublingual 0.4 mg Sublingual UD PRN (Reason: Chest Pain) RF: 0 gabapentin [Neurontin] 300 mg capsule 300 mg PO BID RF: 0 budesonide 0.5 mg/2 mL Suspension For Nebulization 0.5 mg INHALATION BID PRN (Reason: Shortness Of Breath Or Wheezing) RF: 0 furosemide [Lasix] 20 mg Tablet 20 mg PO DAILY PRN (Reason: SWELLING) RF: 0 finasteride [Proscar] 5 mg tablet 5 mg PO QAM RF: 0 rosuvastatin [Crestor] 40 mg tablet 40 mg PO QAM RF: 0 cholecalciferol (vitamin D3) [Vitamin D3] 1,000 unit Tablet 1,000 unit PO BID RF: 0 trospium 60 mg capsule,extended release 24hr 60 mg PO HS RF: 0 Breo Ellipta 100-25 mcg/dose Blister With Device 1 inh INHALATION DAILY PRN (Reason: SHORT OF BREATH) RF: 0 aspirin [Aspir-81] 81 mg Tablet,Delayed Release (Dr/Ec) 81 mg PO QPM Qty: 0 RF: 0 Stand-Alone Forms: [facility] Discharge Orders: Discharge Order (Routine); Ordered 12/06/18 Ordered By: Mauricio Gonzalez Skilled Items Patient informed of condition?: Yes DNR: Yes Discharge Level of Care: Acute rehab Communicable Disease: No Discharge Prognosis: Stable Admission Data Admit Date/Time: 12/04/18 15:31 Attending Provider: Mauricio Gonzalez Admit Provider: Nayeli Giron Primary Care Provider: Sussy Pappas Other Providers: Nayeli Giron Service: Medical Other Interventions: Discharge Summary Assessment (RN) Last Done: 12/06/18 14:54 DC Date/Time DO NOT enter until pt leaves facility: 12/06/18 18:27
== END 2018-12-06 18:27 | DRG 190 ==
LOC: ED 11:34 → 4W 15:31 → SUATTDRO 15:31 → 4W 16:27

== ENCOUNTER 2020-03-04 21:56 | Inpatient (IN) ==
--- NOTE | 2020-03-04 22:23 | Emergency Department Note ---
History of Present Illness General Chief complaint: Leg Weakness, Bilateral Stated complaint: LOSS OF SENSATION MID WANG TO TOES Time Seen by Provider: 03/04/20 22:08 History of Present Illness This is a 69-year-old male presenting to the emergency department for evaluation of bilateral lower extremity weakness over the past 1 day. The patient has a history of significant coronary artery disease as well as diabetic neuropathy. He has had symptoms like this in the past, but not as severe, and not for this l ength of time. He is not having distinct pain, and is able to move his feet and toes, but is unable to walk because of the weakness. The patient has not had fevers or chills. He does not report head pain, neck pain, chest pain, shortness of breath, or abdominal pain. He is able to move his arms without difficulty. He feels like he is eating and drinking as normal. The patient rates his current discomfort a 2/10. He does not report any new medication changes. No recent travel history or fever. Home Medications Home Medications Medication Instructions Recorded Confirmed Type cholecalciferol (vitamin D3) 1,000 unit PO BID 08/22/18 03/05/20 History [Vitamin D3] latanoprost [Xalatan] 1 drp OPB HS 08/22/18 03/05/20 History nitroglycerin [Nitrostat] 0.4 mg SUBLINGUAL UD PRN 08/22/18 03/05/20 History polyethylene glycol 3350 [Miralax] 17 g PO Q OTHER DAY 08/22/18 03/05/20 History aspirin [Aspir-81] 81 mg PO QPM #0 tab 09/14/18 03/05/20 Rx ipratropium 0.5 mg-albuterol 3 mg 3 ml INHALATION QID PRN #180 ml 04/09/19 03/05/20 Rx (2.5 mg base)/3 mL nebulization soln Breo Ellipta 1 inh INHALATION QAM 06/24/19 03/05/20 History finasteride 5 mg tablet 5 mg PO QAM #90 tab 09/03/19 03/05/20 Rx Saccharomyces boulardii 1 ea PO DAILY 11/01/19 03/05/20 History pen needle, diabetic 31 gauge x #50 ea 11/04/19 02/19/20 Rx 3/16" trospium 60 mg capsule,extended 60 mg PO DAILY #90 cap 01/07/20 03/05/20 Rx release 24 hr clopidogrel 75 mg tablet 75 mg PO DAILY #90 tab 01/21/20 03/05/20 Rx blood sugar diagnostic #50 ea 02/19/20 02/19/20 Rx bupropion HCl 150 mg tablet,12 hr See Rx Instructions .ROUTE 02/19/20 03/05/20 Rx sustained-release .COMPLEX #180 tab furosemide 20 mg tablet 20 mg PO DAILY PRN #90 tab 02/19/20 03/05/20 Rx glimepiride 2 mg tablet See Rx Instructions .ROUTE 02/19/20 03/05/20 Rx .COMPLEX #180 tab hydrochlorothiazide 25 mg tablet 25 mg PO DAILY #90 tab 02/19/20 03/05/20 Rx lancets 33 gauge #100 ea 02/19/20 02/19/20 Rx metoprolol tartrate 100 mg tablet 100 mg PO BID #180 tab 02/19/20 03/05/20 Rx rosuvastatin 40 mg tablet 40 mg PO DAILY #90 tab 02/19/20 03/05/20 Rx Allergies Allergy/AdvReac Type Severity Reaction Status Date / Time azithromycin AdvReac Intermediate diarrhea Verified 03/05/20 01:10 Past Med/Surg History Medical History BPH (benign prostatic hyperplasia) CAD (coronary artery disease) Acute [facility] 03[facility], complicated by 3 episodes of v fib requiring electrical shock- ZITA x2 COPD (chronic obstructive pulmonary disease) Severe, per pulm- 2L N/C prn (per patient, typically uses rarely/monthly) Diabetes mellitus GERD (gastroesophageal reflux disease) Hypertension Hypophosphatemia Nephrolithiasis Obstructive sleep apnea of adult no device. patient refuses CPAP Surgical History History of bilateral cataract extraction History of cardiac cath 2010- stents x2 History of carpal tunnel release right History of colonoscopy Colonoscopy: 03/18/19: MAC sedation at [facility] History of lithotripsy Left ESWL: 09/14/18[place] [facility] [place] at [place]: 135.1[place] History of lithotripsy Left ESWL 06/07/19 [facility] History of tooth extraction Hx of transurethral resection of prostate S/P cystoscopy with ureteral stent placement 08/23/2018. MAC. No issues. Family History Mother Family history of diabetes mellitus Coronary heart disease [facility] Father Coronary heart disease [facility] Myocardial infarction Other No family history of adverse response to anesthesia Denies family history of Ovarian cancer Prostate cancer Breast cancer Colorectal cancer Social History Preferred Language: Lithuanian Communication Ability: Effective Visual Impairment: No Limitations Hearing Ability: Normal Fuse Coiler Required: No Beliefs That Will Affect Care: None marital status: Current Living Situation: Spouse Feels Safe at Home: Yes Smoking Status: Former smoker Tobacco Type: cigarettes ; Cigarettes Per Day: 40 ; Number of Years Since Quit: 2 ; Second Hand Exposure: No ; Hx Alcohol Use: No Hx Substance Use: No Dental Care, Regularly: Yes Seatbelt Use: sometimes Review of Systems A total of 10 systems reviewed and were otherwise negative Physical Exam Vital Signs Vital Signs - 24 hr 03/05/20 00:41 03/05/20 01:00 03/05/20 01:30 Pulse Rate 91 H 90 93 H Pulse Rate from SpO2 Sensor Respiratory Rate 21 19 19 Blood Pressure 130/91 152/90 H 182/109 H Blood Pressure Mean 96 118 118 Pulse Oximetry 94 94 95 Oxygen Delivery Method Room Air 03/05/20 02:00 03/05/20 03:34 03/05/20 04:35 Pulse Rate 96 H 93 H Pulse Rate from SpO2 Sensor 95 H Respiratory Rate 26 H 20 20 Blood Pressure 165/111 H 119/92 134/74 Blood Pressure Mean 130 101 83 Pulse Oximetry 94 94 94 Oxygen Delivery Method 03/05/20 05:00 03/05/20 05:31 Pulse Rate 92 H 95 H Pulse Rate from SpO2 Sensor Respiratory Rate 21 20 Blood Pressure 125/76 133/60 Blood Pressure Mean 94 87 Pulse Oximetry 91 94 Oxygen Delivery Method VITALS: Vitals are noted on the nurse's note and reviewed by myself. Vital signs stable. GENERAL: Morbidly obese white male HEAD: Normocephalic atraumatic. EYES: Pupils equal round and reactive to light and accommodation. Conjunctivae without injection, sclerae without icterus. Extraocular movements intact. NOSE: Patent, turbinates without inflammation or discharge. MOUTH: Mucous membranes moist. Tonsils are not enlarged. Pharynx without erythema, blood, or exudate. Uvula midline. Airway patent. NECK: Supple without nuchal rigidity. No lymphadenopathy. No thyromegaly. Cervical spine is nontender. HEART: Regular rate and rhythm without murmurs gallops or rubs. LUNGS: Clear to auscultation bilaterally without wheezes, rales or rhonchi. No retractions or accessory muscle use. ABDOMEN: Positive normal bowel sounds x 4. Soft, nontender, without masses or organomegaly. No guarding or rebound tenderness. MUSCULOSKELETAL: 3+ pitting edema lower extremity bilaterally. Capillary refill to left toes is 4 seconds, right toes 3 seconds. Pulses not identified, possibly due to body habitus. Patient can move upper arms at request. He is able to lift his legs off the bed, move his ankles, and wiggle his toes bilaterally. NEURO: Patient was alert and oriented to person place and time. CN II through XII grossly intact. Course Administered Medications Aspirin (Ecotrin Ectab) 81 mg PO QPM [facility] Stop: 04/04/20 20:59 Last Admin: 03/05/20 20:42 Dose: Not Given Documented by: [id number] Bupropion HCl (Wellbutrin-Sr) 150 mg PO BID [facility] Stop: 04/04/20 08:59 Last Admin: 03/05/20 20:43 Dose: Not Given Documented by: [id number] Admin: 03/05/20 09:59 Dose: 150 mg Documented by: [id number] Clopidogrel Bisulfate (Plavix) 75 mg PO DAILY [facility] Stop: 04/04/20 08:59 Last Admin: 03/05/20 09:58 Dose: 75 mg Documented by: [id number] Finasteride (Proscar) 5 mg PO QAM [facility] Stop: 04/04/20 08:59 Last Admin: 03/05/20 09:59 Dose: 5 mg Documented by: [id number] Fluticasone/Vilanterol (Breo Ellipta 100/25 Mcg Inh) 1 puffs INH QAM [facility] Stop: 04/04/20 08:59 Last Admin: 03/05/20 09:59 Dose: Not Given Documented by: [id number] Sodium Chloride (Nss 1000ml) 1,000 mls @ 80 mls/hr IV .[id number] [facility] Stop: 03/06/20 08:14 Last Infusion: 03/05/20 23:20 Dose: 80 mls/hr Documented by: [id number] Infusion: 03/05/20 21:30 Dose: 0 mls/hr Documented by: [id number] Admin: 03/05/20 20:06 Dose: 80 mls/hr Documented by: [id number] Infusion: 03/05/20 19:55 Dose: 80 mls/hr Documented by: [id number] Admin: 03/05/20 07:25 Dose: 80 mls/hr Documented by: [id number] Ceftriaxone Sodium 2,000 mg/ (Dextrose) 70 mls @ 100 mls/hr IV Q24H [facility]; Protocol Stop: 03/15/20 10:59 Last Infusion: 03/05/20 12:00 Dose: 0 mls/hr Documented by: [id number] Admin: 03/05/20 11:18 Dose: 100 mls/hr Documented by: [id number] Insulin Glargine (Lantus Solostar Pen) 0 units SC BID [facility]; Protocol Stop: 04/04/20 20:59 Last Admin: 03/05/20 21:27 Dose: Not Given Documented by: [id number] Latanoprost (Xalatan Oph) 1 drops OPB HS [facility] Stop: 04/04/20 20:59 Last Admin: 03/05/20 20:43 Dose: Not Given Documented by: [id number] Metoprolol Tartrate (Lopressor) 100 mg PO BID [facility] Stop: 04/04/20 08:59 Last Admin: 03/05/20 21:14 Dose: 100 mg Documented by: [id number] Admin: 03/05/20 09:58 Dose: 100 mg Documented by: [id number] Miscellaneous (Order Awaiting Action) 1 ea N/A QS [facility] Stop: 04/04/20 07:59 Last Admin: 03/05/20 15:39 Dose: Not Given Documented by: [id number] Admin: 03/05/20 09:59 Dose: Not Given Documented by: [id number] Polyethylene Glycol (Miralax Powder Packet) 17 gm PO Q2D [facility] Stop: 04/04/20 08:59 Last Admin: 03/05/20 09:59 Dose: 17 gm Documented by: [id number] Rosuvastatin Calcium (Crestor) 40 mg PO DAILY [facility] Stop: 04/04/20 08:59 Last Admin: 03/05/20 09:58 Dose: 40 mg Documented by: [id number] Discontinued Medications Heparin Sodium (Porcine) (Heparin Sodium (Porcine)) 5,000 units SQ Q12 [facility] Stop: 04/04/20 08:59 Last Admin: 03/05/20 09:58 Dose: 5,000 units Documented by: [id number] Cosigned by: [id number] Insulin Aspart (Novolog Flexpen) 0 units SC ACHS [facility] Stop: 04/04/20 07:29 Last Admin: 03/05/20 19:21 Dose: Not Given Documented by: [id number] Cosigned by: [id number] Admin: 03/05/20 12:59 Dose: 4 units Documented by: [id number] Cosigned by: [id number] Admin: 03/05/20 10:01 Dose: 7 units Documented by: [id number] Cosigned by: [id number] Insulin Aspart (Novolog Flexpen) 0 units SC Q6 [facility] Stop: 04/04/20 07:29 Last Admin: 03/05/20 17:53 Dose: 3 units Documented by: [id number] Cosigned by: [id number] Insulin Glargine (Lantus Solostar Pen) 10 units SC BID [facility] Stop: 04/04/20 08:59 Last Admin: 03/05/20 09:59 Dose: 10 units Documented by: [id number] Cosigned by: [id number] Iohexol (Omnipaque) Confirm Administered Dose 20 ml INSTIL .STK-MED [facility] Stop: 03/05/20 17:42 Last Admin: 03/05/20 22:38 Dose: 20 ml Documented by: [id number] Medical Decision Making Differential Diagnosis Differential includes diabetic neuropathy, vascular disease, claudication, acute coronary syndrome, myocardial infarction, CVA, TIA, anemia, infection, pneumonia, UTI, pyelonephritis, poor nutrition, dehydration, electrolyte disturbance,hypoglycemia. Laboratory Data Result diagrams: 03/04/20 22:10 03/05/20 15:32 Lab Results 03/04/20 03/04/20 03/04/20 Range/Units 22:10 22:10 22:10 WBC 11.00 H (4.8-10.8) K/uL RBC 4.70 (4.7-6.1) M/uL Hgb 13.3 L (14.0-18.0) g/dL Hct 41.2 L (42-52) % MCV 87.7 (80-100) fL MCH 28.3 (25-34) pg MCHC 32.3 (32-36) g/dL RDW Std Deviation 51.7 H (36.4-46.3) fL RDW Coeff of Cirilo 16.2 H (11.5-14.5) % Plt Count 158 (130-400) K/uL MPV 9.7 (7.4-10.4) fL Immature Gran % (Auto) 0.7 % Neut % (Auto) 79.3 % Lymph % (Auto) 9.2 % Johnston % (Auto) 10.1 % Eos % (Auto) 0.5 % Baso % (Auto) 0.2 % Neut # (Auto) 8.73 H (1.4-6.5) K/uL Lymph # (Auto) 1.01 L (1.2-3.4) K/uL Johnston # (Auto) 1.11 H (0.11-0.59) K/uL Eos # (Auto) 0.05 (0-0.5) K/uL Baso # (Auto) 0.02 (0-0.2) K/uL Immature Gran # (Auto) 0.08 H (0.00-0.02) K/uL ESR (0-14) mm/hr PT 11.0 (9.0-12.0) Seconds INR 1.0 (0.9-1.1) APTT 26.5 (21.0-31.0) Seconds PTT Ratio 0.9 Sodium 140 (136-145) mmol/L Potassium 3.7 (3.5-5.1) mmol/L Chloride 106 (98-107) mmol/L Carbon Dioxide 25 (21-32) mmol/L Anion Gap 9.0 (3-11) BUN 27 H (7-18) mg/dl Creatinine 3.30 H (0.6-1.4) mg/dl Est Cr Clr Drug Dosing 30.0 ml/min Est GFR ( Amer) 21.2 Est GFR (Non-Af Amer) 18.3 BUN/Creatinine Ratio 8.3 L (10-20) Glucose 246 H (70-99) mg/dl Lactate (0.4-2.0) mmol/L Calcium 9.3 (8.5-10.1) mg/dl Magnesium 2.0 (1.8-2.4) mg/dl Total Bilirubin 0.8 (0.2-1) mg/dl AST 5 L (15-37) U/L ALT 17 (12-78) U/L Alkaline Phosphatase 98 (45-117) U/L Troponin I < 0.015 (0-0.045) ng/ml C-Reactive Protein 7.75 H (0-0.29) mg/dl NT-Pro-B Natriuret Pep 140 (0-900) pg/ml Total Protein 7.1 (6.4-8.2) gm/dl Albumin 2.9 L (3.4-5.0) gm/dl Globulin 4.2 H (2.5-4.0) gm/dl Albumin/Globulin Ratio 0.7 L (0.9-2) TSH 1.170 (0.300-4.500) uIu/ml Urine Color Urine Appearance (Clear) Urine pH (4.5-7.5) Ur Specific Astor (1.000-1.030) Urine Protein (Negative) Urine Glucose (UA) (Negative) Urine Ketones (Negative) Urine Blood (Negative) Urine Nitrite (Negative) Urine Bilirubin (Negative) Urine Urobilinogen (Negative) Ur Leukocyte Esterase (Negative) Urine WBC (Auto) (0-5) /hpf Urine RBC (Auto) (0-4) /hpf U Hyaline Cast (Auto) (0-5) /lpf U Epithel Cells (Auto) (0-5) /lpf Urine Bacteria (Auto) (Negative) Urine Crystals Calcium Oxalate Crystal (None Prsent) Lyme Disease IgG Ab (Negative) Lyme Disease IgM Ab (Negative) 03/04/20 03/04/20 03/05/20 Range/Units 22:10 22:10 01:50 WBC (4.8-10.8) K/uL RBC (4.7-6.1) M/uL Hgb (14.0-18.0) g/dL Hct (42-52) % MCV (80-100) fL MCH (25-34) pg MCHC (32-36) g/dL RDW Std Deviation (36.4-46.3) fL RDW Coeff of Cirilo (11.5-14.5) % Plt Count (130-400) K/uL MPV (7.4-10.4) fL Immature Gran % (Auto) % Neut % (Auto) % Lymph % (Auto) % Johnston % (Auto) % Eos % (Auto) % Baso % (Auto) % Neut # (Auto) (1.4-6.5) K/uL Lymph # (Auto) (1.2-3.4) K/uL Johnston # (Auto) (0.11-0.59) K/uL Eos # (Auto) (0-0.5) K/uL Baso # (Auto) (0-0.2) K/uL Immature Gran # (Auto) (0.00-0.02) K/uL ESR 58 H (0-14) mm/hr PT (9.0-12.0) Seconds INR (0.9-1.1) APTT (21.0-31.0) Seconds PTT Ratio Sodium (136-145) mmol/L Potassium (3.5-5.1) mmol/L Chloride (98-107) mmol/L Carbon Dioxide (21-32) mmol/L Anion Gap (3-11) BUN (7-18) mg/dl Creatinine (0.6-1.4) mg/dl Est Cr Clr Drug Dosing ml/min Est GFR ( Amer) Est GFR (Non-Af Amer) BUN/Creatinine Ratio (10-20) Glucose (70-99) mg/dl Lactate (0.4-2.0) mmol/L Calcium (8.5-10.1) mg/dl Magnesium (1.8-2.4) mg/dl Total Bilirubin (0.2-1) mg/dl AST (15-37) U/L ALT (12-78) U/L Alkaline Phosphatase (45-117) U/L Troponin I (0-0.045) ng/ml C-Reactive Protein (0-0.29) mg/dl NT-Pro-B Natriuret Pep (0-900) pg/ml Total Protein (6.4-8.2) gm/dl Albumin (3.4-5.0) gm/dl Globulin (2.5-4.0) gm/dl Albumin/Globulin Ratio (0.9-2) TSH (0.300-4.500) uIu/ml Urine Color Yellow Urine Appearance Cloudy A (Clear) Urine pH 5.5 (4.5-7.5) Ur Specific Astor 1.021 (1.000-1.030) Urine Protein 2+ H (Negative) Urine Glucose (UA) 2+ H (Negative) Urine Ketones Trace H (Negative) Urine Blood 1+ H (Negative) Urine Nitrite Negative (Negative) Urine Bilirubin Negative (Negative) Urine Urobilinogen Negative (Negative) Ur Leukocyte Esterase 1+ H (Negative) Urine WBC (Auto) >30 H (0-5) /hpf Urine RBC (Auto) 0-4 (0-4) /hpf U Hyaline Cast (Auto) 1-5 (0-5) /lpf U Epithel Cells (Auto) 0-5 (0-5) /lpf Urine Bacteria (Auto) 1+ H (Negative) Urine Crystals Not Reportable Calcium Oxalate Crystal Present A (None Prsent) Lyme Disease IgG Ab Negative (Negative) Lyme Disease IgM Ab Negative (Negative) 03/05/20 Range/Units 04:25 WBC (4.8-10.8) K/uL RBC (4.7-6.1) M/uL Hgb (14.0-18.0) g/dL Hct (42-52) % MCV (80-100) fL MCH (25-34) pg MCHC (32-36) g/dL RDW Std Deviation (36.4-46.3) fL RDW Coeff of Cirilo (11.5-14.5) % Plt Count (130-400) K/uL MPV (7.4-10.4) fL Immature Gran % (Auto) % Neut % (Auto) % Lymph % (Auto) % Johnston % (Auto) % Eos % (Auto) % Baso % (Auto) % Neut # (Auto) (1.4-6.5) K/uL Lymph # (Auto) (1.2-3.4) K/uL Johnston # (Auto) (0.11-0.59) K/uL Eos # (Auto) (0-0.5) K/uL Baso # (Auto) (0-0.2) K/uL Immature Gran # (Auto) (0.00-0.02) K/uL ESR (0-14) mm/hr PT (9.0-12.0) Seconds INR (0.9-1.1) APTT (21.0-31.0) Seconds PTT Ratio Sodium (136-145) mmol/L Potassium (3.5-5.1) mmol/L Chloride (98-107) mmol/L Carbon Dioxide (21-32) mmol/L Anion Gap (3-11) BUN (7-18) mg/dl Creatinine (0.6-1.4) mg/dl Est Cr Clr Drug Dosing ml/min Est GFR ( Amer) Est GFR (Non-Af Amer) BUN/Creatinine Ratio (10-20) Glucose (70-99) mg/dl Lactate 2.5 H* (0.4-2.0) mmol/L Calcium (8.5-10.1) mg/dl Magnesium (1.8-2.4) mg/dl Total Bilirubin (0.2-1) mg/dl AST (15-37) U/L ALT (12-78) U/L Alkaline Phosphatase (45-117) U/L Troponin I (0-0.045) ng/ml C-Reactive Protein (0-0.29) mg/dl NT-Pro-B Natriuret Pep (0-900) pg/ml Total Protein (6.4-8.2) gm/dl Albumin (3.4-5.0) gm/dl Globulin (2.5-4.0) gm/dl Albumin/Globulin Ratio (0.9-2) TSH (0.300-4.500) uIu/ml Urine Color Urine Appearance (Clear) Urine pH (4.5-7.5) Ur Specific Astor (1.000-1.030) Urine Protein (Negative) Urine Glucose (UA) (Negative) Urine Ketones (Negative) Urine Blood (Negative) Urine Nitrite (Negative) Urine Bilirubin (Negative) Urine Urobilinogen (Negative) Ur Leukocyte Esterase (Negative) Urine WBC (Auto) (0-5) /hpf Urine RBC (Auto) (0-4) /hpf U Hyaline Cast (Auto) (0-5) /lpf U Epithel Cells (Auto) (0-5) /lpf Urine Bacteria (Auto) (Negative) Urine Crystals Calcium Oxalate Crystal (None Prsent) Lyme Disease IgG Ab (Negative) Lyme Disease IgM Ab (Negative) Imaging Data Radiologist's Impression: MR lumbar spine wo con CLINICAL HISTORY: Bilateral lower extremity weakness TECHNIQUE: Sagittal and axial T1, T2 and STIR images were obtained. COMPARISON STUDY: November 2018 OBSERVATIONS: The vertebral bodies and posterior elements appear intact. There is no abnormal bony signal present to suggest a marrow replacement process. Localizer images reveal left-sided hydronephrosis, a finding present in November 2018 L1-2: No disc protrusions or extrusions. No evidence of spinal canal or neural foraminal compromise. L2-3: No disc protrusions or extrusions. No evidence of spinal canal or neural foraminal compromise. L3-4: There is a mild circumferential disc bulge and minimal left foraminal disc protrusion. There is a slight triangular configuration of the thecal sac but significant spinal stenosis is not felt to be present. There is minimal left- sided foraminal narrowing L4-5: There is a mild circumferential disc bulge. There is mild facet joint arthropathy. There is a slight triangular configuration thecal sac but significant spinal stenosis is not felt to be present. There is no significant foraminal narrowing L5-S1: No disc protrusions or extrusions. No evidence of spinal canal or neural foraminal compromise. The conus medullaris and cauda equina appear normal. IMPRESSION: 1. Mild multilevel spondylytic changes 2. No evidence of high-grade spinal stenosis 3. Left-sided hydronephrosis US arterial duplex LE BI CLINICAL HISTORY: Acute b/l LE weakness bilateral leg pain COMPARISON STUDY: 12/13/2018 FINDINGS: Calculated ankle brachial indices are 0.9 and the right and 1.1 and the left. On the right, there is triphasic flow within the common femoral superficial femoral popliteal anterior tibial posterior tibial and peroneal arteries. On the left there was triphasic flow within the left common femoral superficial femoral popliteal and posterior tibial artery. There is biphasic flow within the left peroneal and anterior tibial artery. There are no high velocity jets to indicate a focal stenosis. IMPRESSION: No evidence of lower extremity arterial stenosis. ECG Data Attestation: I personally reviewed and interpreted this ECG as follows: Indication: + weakness Additional Comments: Sinus rhythm with occasional Premature ventricular complexes @[address] elevation Left axis deviation When compared with ECG of 28-MAY-2019 11:43, Premature ventricular complexes are now evidence of old Inferior infarct Present MDM Narrative Physical exam and history were performed. Nursing notes, EMR, and Medication List were personally reviewed. Patient appears to have bilateral lower extremity weakness and ambulatory dysfunction bring him to the ER tonight. The case was reviewed with my attending physician who remained involved in care and decision making. The patient has a significant history of CAD and diabetes. He is not complaining of pain, but only of weakness. On examination he does not have evidence of stroke. Pulses distally were very difficult to identify, likely from his significant lower extremity edema. IV access was established and labs were obtained. I did elect to perform arterial ultrasound of his lower extremities to assess for claudication type process. The patient's blood work is as above and was reviewed. The patient does have a minimally elevated white blood cell count of 11,000. He is mildly anemic at 13.3. Sed rate and CRP are both elevated. INR is 1.0. His BUN and creatinine are elevated, with his creatinine being over 3. Review of the EMR shows this is the highest his creatinine has been, and he normally runs around 2. Glucose is over 200, and he does have a last A1c from 5 months ago of 10%.. Urine does have protein, glucose, ketones, and a small amount of blood. Transaminases are not diagnostic. Ultrasound was performed and reviewed by myself and radiology. Ultrasound of the legs is with good flow and pulses. As this did not identify a reason for his lower extremity weakness, and taking into consideration that he has elevated inflammatory markers and a slightly elevated white blood cell count, there is concern for possible lumbar etiology. Unfortunately with his elevated creatinine we are not able to perform MRI with contrast, therefore noncontrast MRI was performed. This was also reviewed by myself and radiology and does not seem to show acute pathology causing his symptoms. An order was placed for continuous cardiac monitoring. The monitor shows a rate of 82 with normal sinus rhythm. On reevaluation the patient continues to seem very comfortable in his ER bed, but is with persistent weakness. He has not gotten significantly better or significantly worse while here in the ER. I discussed options of care with the patient and , and he has such difficulty walking at this point, he is unable to go home. I did discuss the case with the on-call hospitalist, who agreed to evaluate the patient here in the department. Please see their dictation for further patient course, plan, and disposition. The chart was completed utilizing [employer] Speech Voice Recognition Software. Grammatical errors, random word insertions, pronoun errors, and incomplete sentences are an occasional consequence of this system due to software limitations, ambient noise, and hardware issues. Any formal questions or concerns about the content, text, or information contained within the body of this dictation should be directly addressed to the provider for clarification. . Impression & Plan Bilateral leg weakness, Diabetic peripheral neuropathy, EDILMA (acute kidney injury) Discharge Plan Visit Data *Final* Discharge Date/Time: 03/05/20 06:36 Chief Complaint: Leg Weakness, Bilateral Stated Complaint: LOSS OF SENSATION MID WANG TO TOES ED Provider: Devin Miles ED Midlevel Provider: Juvenal Elias Discharge Problem: Bilateral leg weakness, Diabetic peripheral neuropathy, EDILMA (acute kidney injury) Patient Disposition: Admitted As Inpatient Discharge Instructions Interventions: ED Discharge Assessment Last Done: 03/05/20 06:36
[2020-03-04 22:28] LABS: Basophils # (auto) 0.02 K/uL (0-0.2); Basophils % (auto) 0.2 %; Eosinophils # (auto) 0.05 K/uL (0-0.5); Eosinophils % (auto) 0.5 %; Hematocrit (blood only) 41.2 % (42-52); Hemoglobin 13.3 g/dL (14.0-18.0); Immature Granulocytes # (auto) 0.08 K/uL (0.00-0.02); Immature Granulocytes % (auto) 0.7 %; Lymphocytes # (auto) 1.01 K/uL (1.2-3.4); Lymphocytes % (auto) 9.2 %; Mean Corpuscular Hemoglobin 28.3 pg (25-34); Mean Corpuscular Hgb Conc 32.3 g/dL (32-36); Mean Corpuscular Volume 87.7 fL (80-100); Mean Platelet Volume 9.7 fL (7.4-10.4); Monocytes # (auto) 1.11 K/uL (0.11-0.59); Monocytes % (auto) 10.1 %; Neutrophils # (auto) 8.73 K/uL (1.4-6.5); Neutrophils % (auto) 79.3 %; Platelet Count 158 K/uL (130-400); RDW Coefficient of Variation 16.2 % (11.5-14.5); RDW Standard Deviation 51.7 fL (36.4-46.3)
[2020-03-04 22:42] LABS: Partial Thromboplastin Ratio 0.9; Partial Thromboplastin Time 26.5 Seconds (21.0-31.0)
[2020-03-04 22:45] LABS: Alanine Aminotransferase 17 U/L (12-78); Albumin Level 2.9 gm/dl (3.4-5.0); Aspartate Aminotransferase 5 U/L (15-37); BUN Creatinine Ratio 8.3 (10-20); Blood Urea Nitrogen 27 mg/dl (7-18); Calcium 9.3 mg/dl (8.5-10.1); Carbon Dioxide 25 mmol/L (21-32); Chloride 106 mmol/L (98-107); Est GFR (African American) 21.2; Est GFR (Non-African American) 18.3; Glucose 246 mg/dl (70-99); Potassium 3.7 mmol/L (3.5-5.1); Sodium 140 mmol/L (136-145)
[2020-03-04 22:55] LABS: Albumin Globulin Ratio 0.7 (0.9-2); Alkaline Phosphatase 98 U/L (45-117); Bilirubin,Total 0.8 mg/dl (0.2-1); Globulin 4.2 gm/dl (2.5-4.0); NT Pro B Type Natriuretic Pept 140 pg/ml (0-900); Total Protein 7.1 gm/dl (6.4-8.2); Troponin I < 0.015 ng/ml (0-0.045)
[2020-03-04 23:17] LABS: Lyme Ab IgG w/WB Rflx Negative (Negative); Lyme Ab IgM w/WB Rflx Negative (Negative)
[2020-03-04 23:48] LABS: C Reactive Protein 7.75 mg/dl (0-0.29)
[2020-03-05 02:03] LABS: Appearance Urine Cloudy (Clear); Bacteria Urine Automated 1+ (Negative); Bilirubin Urine Negative (Negative); Blood Urine 1+ (Negative); Color Urine Yellow; Epithelial Cell Urine Auto 0-5 /lpf (0-5); Glucose Urine UA 2+ (Negative); Ketones Urine Trace (Negative); Leukocyte Esterase Urine 1+ (Negative); Nitrite Urine Negative (Negative); Protein Urine 2+ (Negative); RBC Urine Automated 0-4 /hpf (0-4); Specific Gravity Urine 1.021 (1.000-1.030); Urobilinogen Urine Negative (Negative); WBC Urine Automated >30 /hpf (0-5); pH Urine 5.5 (4.5-7.5)
[2020-03-05 02:44] LABS: Calcium Oxalate Crystals Urine Present (None Prsent)
--- NOTE | 2020-03-05 05:58 | History & Physical Report ---
Date of Service March 05, 2020 Assessment & Plan (1) Peripheral neuropathy: Patient with distal neuropathy of bilateral LE, history of the same thought to be secondary to diabetes. Acute worsening over the last 1-2 weeks to the point that he is unable to ambulate and his is unable to care for him. ?progression of diabetic neuropathy vs other etiology -Observation to medical floor -Check B12, RPR -Consider initiating Gabapentin when renal function improves Present on Admission?: Yes (2) Diabetes mellitus: Elevated blood sugar, [id number] -Hold oral agents -Lantus 10u BID with ISS -Goal blood sugar 100 - 140 Present on Admission?: Yes (3) COPD (chronic obstructive pulmonary disease): Stable respiratory status -O2 as needed -Continue Breo -Continue DuoNeb PRN Present on Admission?: Yes (4) Depression: Chronic. Well controlled -Continue Bupropion Present on Admission?: Yes (5) CKD (chronic kidney disease): Mild EDILMA on CKD, patient appears dry on physical exam -IVF with NSS at 80mL/hr -Repeat labs Present on Admission?: Yes (6) Hypertension: Blood pressure stable -Hold HCTZ, hold Lasix -Continue Metoprolol -Monitor Present on Admission?: Yes (7) CAD (coronary artery disease): Stable. Patient denies CP -Continue ASA, Plavix, Metoprolol, Rosuvastatin Present on Admission?: Yes (8) Obstructive sleep apnea of adult: Patient does not wear CPAP -Supplemental O2 as needed Present on Admission?: Yes (9) Dyslipidemia: Chronic. Stable -Continue Crestor Admission and Anticipated Discharge Date Admission Date: 03/05/20 Anticipated date of discharge: 03/06/20 History of Present Illness Chief Complaint: Bilateral LE weakness Primary Care Provider: Salas Valente DO Adonis Stephenson is a 69yo C male with history of DM, HTN, CAD, CKD, COPD presenting with 1-2 weeks of progressive bilateral LE numbness, weakness and gait instability. He reports baseline neuropathy from his diabetes with occasional difficulty walking. Over the past 1-2 weeks, however, he has had increase in the numbness from his ankles to toes bilaterally and aching in his shins. He also feels more weak and feels that his balance is worse. He lives a t home with his who is unable to care for him in his current state. Patient denies fevers/chills/falls or trauma. He denies CP/palpitations/SOB/cough/wheeze/abdominal pain/nausea/diarrhea/dysur ia/hematuria. He reports chronic low back pain and occasional urinary incontinence at baseline and reports no worsening of these symptoms. No coronavirus concerns at this time. Allergies Allergy/AdvReac Type Severity Reaction Status Date / Time azithromycin AdvReac Intermediate diarrhea Verified 03/05/20 01:10 Home Medications Home Medications Medication Instructions Recorded Confirmed Type cholecalciferol (vitamin D3) 1,000 unit PO BID 08/22/18 03/05/20 History [Vitamin D3] latanoprost [Xalatan] 1 drp OPB HS 08/22/18 03/05/20 History nitroglycerin [Nitrostat] 0.4 mg SUBLINGUAL UD PRN 08/22/18 03/05/20 History polyethylene glycol 3350 [Miralax] 17 g PO Q OTHER DAY 08/22/18 03/05/20 History aspirin [Aspir-81] 81 mg PO QPM #0 tab 09/14/18 03/05/20 Rx ipratropium 0.5 mg-albuterol 3 mg 3 ml INHALATION QID PRN #180 ml 04/09/19 03/05/20 Rx (2.5 mg base)/3 mL nebulization soln Breo Ellipta 1 inh INHALATION QAM 06/24/19 03/05/20 History finasteride 5 mg tablet 5 mg PO QAM #90 tab 09/03/19 03/05/20 Rx Saccharomyces boulardii 1 ea PO DAILY 11/01/19 03/05/20 History pen needle, diabetic 31 gauge x #50 ea 11/04/19 02/19/20 Rx 3/16" trospium 60 mg capsule,extended 60 mg PO DAILY #90 cap 01/07/20 03/05/20 Rx release 24 hr clopidogrel 75 mg tablet 75 mg PO DAILY #90 tab 01/21/20 03/05/20 Rx blood sugar diagnostic #50 ea 02/19/20 02/19/20 Rx bupropion HCl 150 mg tablet,12 hr See Rx Instructions .ROUTE 02/19/20 03/05/20 Rx sustained-release .COMPLEX #180 tab furosemide 20 mg tablet 20 mg PO DAILY PRN #90 tab 02/19/20 03/05/20 Rx glimepiride 2 mg tablet See Rx Instructions .ROUTE 02/19/20 03/05/20 Rx .COMPLEX #180 tab hydrochlorothiazide 25 mg tablet 25 mg PO DAILY #90 tab 02/19/20 03/05/20 Rx lancets 33 gauge #100 ea 02/19/20 02/19/20 Rx metoprolol tartrate 100 mg tablet 100 mg PO BID #180 tab 02/19/20 03/05/20 Rx rosuvastatin 40 mg tablet 40 mg PO DAILY #90 tab 02/19/20 03/05/20 Rx Past Med/Surg History Medical History BPH (benign prostatic hyperplasia) CAD (coronary artery disease) Acute [place] 03/2011, complicated by 3 episodes of v fib requiring electrical shock- ZITA x2 CKD (chronic kidney disease) COPD (chronic obstructive pulmonary disease) Severe, per pulm- 2L N/C prn (per patient, typically uses rarely/monthly) Diabetes mellitus GERD (gastroesophageal reflux disease) Hypertension Hypophosphatemia Nephrolithiasis Obstructive sleep apnea of adult no device. patient refuses CPAP Surgical History History of bilateral cataract extraction History of cardiac cath 2010- stents x2 History of carpal tunnel release right History of colonoscopy Colonoscopy: 03/18/19: MAC sedation at [facility] History of lithotripsy Left ESWL: 09/14/18: LMA#5 at [facility] (weight at time: 135.1kg) History of lithotripsy Left ESWL 06/07/19 [facility] History of tooth extraction Hx of transurethral resection of prostate S/P cystoscopy with ureteral stent placement 08/23/2018. MAC. No issues. Social History Preferred Language: [place] Communication Ability: Effective Visual Impairment: No Limitations Hearing Ability: Normal Data Modeling Architect Required: No Beliefs That Will Affect Care: None marital status: Current Living Situation: Spouse Feels Safe at Home: Yes Smoking Status: Former smoker Tobacco Type: cigarettes ; Cigarettes Per Day: 40 ; Number of Years Since Quit: 2 ; Second Hand Exposure: No ; Hx Alcohol Use: No Hx Substance Use: No Dental Care, Regularly: Yes Seatbelt Use: sometimes Review of Systems Review of Systems: All systems reviewed & are unremarkable except as noted in HPI & below Physical Exam Physical Exam: General: morbidly obese male patient resting comfortably, NAD, non-toxic in appearance, AA&O x 4 Skin: warm, dry, intact, mild redness and thickening of skin of bilateral LE HEENT: NC/AT, PERRL, EOMI, anicteric sclera, conjunctiva without injection, external ear normal to inspection and nontender, nares patent, dry mucus membranes, dentition intact, no oropharyngeal lesions, neck supple, trachea midline, no LAD, no thyromegaly, no JVD Heart: +S1/S2, regular, no m/r/g Lungs: equal air entry bilaterally, no rales/rhonchi/wheezes Abd: +BS, soft, NT/ND, no masses/organomegaly/ascites Ext: warm, 2+ pulses in UE/LE bilaterally, no clubbing/cyanosis, 1+ non-pitting edema of bilateral LEs Neuro: patient AA&O x 4, speech intact, no facial droop, moving all extremities on command with equal strength 5/5, diminished sensation to light touch of bilateral LEs Results & Data Results & Data ([facility]) Vital Signs (Past 12 Hours) Vital Signs Temp Pulse Resp BP Pulse Ox 03/05/20 04:35 93 H 20 134/74 94 03/05/20 03:34 20 119/92 94 03/05/20 02:00 96 H 26 H 165/111 H 94 03/05/20 01:30 93 H 19 182/109 H 95 03/05/20 01:00 90 19 152/90 H 94 03/05/20 00:41 91 H 21 130/91 94 03/04/20 22:33 89 24 94 03/04/20 22:30 80 21 148/76 H 93 03/04/20 22:23 37.7 C H 91 H 24 160/89 H 94 03/04/20 22:06 87 21 160/89 H 91 Laboratory Results Lab Results 03/04/20 03/04/20 03/04/20 Range/Units 22:10 22:10 22:10 WBC 11.00 H (4.8-10.8) K/uL RBC 4.70 (4.7-6.1) M/uL Hgb 13.3 L (14.0-18.0) g/dL Hct 41.2 L (42-52) % MCV 87.7 (80-100) fL MCH 28.3 (25-34) pg MCHC 32.3 (32-36) g/dL RDW Std Deviation 51.7 H (36.4-46.3) fL RDW Coeff of Cirilo 16.2 H (11.5-14.5) % Plt Count 158 (130-400) K/uL MPV 9.7 (7.4-10.4) fL Immature Gran % (Auto) 0.7 % Neut % (Auto) 79.3 % Lymph % (Auto) 9.2 % [place] % (Auto) 10.1 % Eos % (Auto) 0.5 % Baso % (Auto) 0.2 % Neut # (Auto) 8.73 H (1.4-6.5) K/uL Lymph # (Auto) 1.01 L (1.2-3.4) K/uL [place] # (Auto) 1.11 H (0.11-0.59) K/uL Eos # (Auto) 0.05 (0-0.5) K/uL Baso # (Auto) 0.02 (0-0.2) K/uL Immature Gran # (Auto) 0.08 H (0.00-0.02) K/uL ESR (0-14) mm/hr PT 11.0 (9.0-12.0) Seconds INR 1.0 (0.9-1.1) APTT 26.5 (21.0-31.0) Seconds PTT Ratio 0.9 Sodium 140 (136-145) mmol/L Potassium 3.7 (3.5-5.1) mmol/L Chloride 106 (98-107) mmol/L Carbon Dioxide 25 (21-32) mmol/L Anion Gap 9.0 (3-11) BUN 27 H (7-18) mg/dl Creatinine 3.30 H (0.6-1.4) mg/dl Est Cr Clr Drug Dosing 30.0 ml/min Est GFR ( Amer) 21.2 Est GFR (Non-Af Amer) 18.3 BUN/Creatinine Ratio 8.3 L (10-20) Glucose 246 H (70-99) mg/dl Lactate (0.4-2.0) mmol/L Calcium 9.3 (8.5-10.1) mg/dl Magnesium 2.0 (1.8-2.4) mg/dl Total Bilirubin 0.8 (0.2-1) mg/dl AST 5 L (15-37) U/L ALT 17 (12-78) U/L Alkaline Phosphatase 98 (45-117) U/L Troponin I < 0.015 (0-0.045) ng/ml C-Reactive Protein 7.75 H (0-0.29) mg/dl NT-Pro-B Natriuret Pep 140 (0-900) pg/ml Total Protein 7.1 (6.4-8.2) gm/dl Albumin 2.9 L (3.4-5.0) gm/dl Globulin 4.2 H (2.5-4.0) gm/dl Albumin/Globulin Ratio 0.7 L (0.9-2) TSH 1.170 (0.300-4.500) uIu/ml Urine Color Urine Appearance (Clear) Urine pH (4.5-7.5) Ur Specific [place] (1.000-1.030) Urine Protein (Negative) Urine Glucose (UA) (Negative) Urine Ketones (Negative) Urine Blood (Negative) Urine Nitrite (Negative) Urine Bilirubin (Negative) Urine Urobilinogen (Negative) Ur Leukocyte Esterase (Negative) Urine WBC (Auto) (0-5) /hpf Urine RBC (Auto) (0-4) /hpf U Hyaline Cast (Auto) (0-5) /lpf U Epithel Cells (Auto) (0-5) /lpf Urine Bacteria (Auto) (Negative) Urine Crystals Calcium Oxalate Crystal (None Prsent) Lyme Disease IgG Ab (Negative) Lyme Disease IgM Ab (Negative) 03/04/20 03/04/20 03/05/20 Range/Units 22:10 22:10 01:50 WBC (4.8-10.8) K/uL RBC (4.7-6.1) M/uL Hgb (14.0-18.0) g/dL Hct (42-52) % MCV (80-100) fL MCH (25-34) pg MCHC (32-36) g/dL RDW Std Deviation (36.4-46.3) fL RDW Coeff of Cirilo (11.5-14.5) % Plt Count (130-400) K/uL MPV (7.4-10.4) fL Immature Gran % (Auto) % Neut % (Auto) % Lymph % (Auto) % [place] % (Auto) % Eos % (Auto) % Baso % (Auto) % Neut # (Auto) (1.4-6.5) K/uL Lymph # (Auto) (1.2-3.4) K/uL [place] # (Auto) (0.11-0.59) K/uL Eos # (Auto) (0-0.5) K/uL Baso # (Auto) (0-0.2) K/uL Immature Gran # (Auto) (0.00-0.02) K/uL ESR 58 H (0-14) mm/hr PT (9.0-12.0) Seconds INR (0.9-1.1) APTT (21.0-31.0) Seconds PTT Ratio Sodium (136-145) mmol/L Potassium (3.5-5.1) mmol/L Chloride (98-107) mmol/L Carbon Dioxide (21-32) mmol/L Anion Gap (3-11) BUN (7-18) mg/dl Creatinine (0.6-1.4) mg/dl Est Cr Clr Drug Dosing ml/min Est GFR ( Amer) Est GFR (Non-Af Amer) BUN/Creatinine Ratio (10-20) Glucose (70-99) mg/dl Lactate (0.4-2.0) mmol/L Calcium (8.5-10.1) mg/dl Magnesium (1.8-2.4) mg/dl Total Bilirubin (0.2-1) mg/dl AST (15-37) U/L ALT (12-78) U/L Alkaline Phosphatase (45-117) U/L Troponin I (0-0.045) ng/ml C-Reactive Protein (0-0.29) mg/dl NT-Pro-B Natriuret Pep (0-900) pg/ml Total Protein (6.4-8.2) gm/dl Albumin (3.4-5.0) gm/dl Globulin (2.5-4.0) gm/dl Albumin/Globulin Ratio (0.9-2) TSH (0.300-4.500) uIu/ml Urine Color Yellow Urine Appearance Cloudy A (Clear) Urine pH 5.5 (4.5-7.5) Ur Specific [place] 1.021 (1.000-1.030) Urine Protein 2+ H (Negative) Urine Glucose (UA) 2+ H (Negative) Urine Ketones Trace H (Negative) Urine Blood 1+ H (Negative) Urine Nitrite Negative (Negative) Urine Bilirubin Negative (Negative) Urine Urobilinogen Negative (Negative) Ur Leukocyte Esterase 1+ H (Negative) Urine WBC (Auto) >30 H (0-5) /hpf Urine RBC (Auto) 0-4 (0-4) /hpf U Hyaline Cast (Auto) 1-5 (0-5) /lpf U Epithel Cells (Auto) 0-5 (0-5) /lpf Urine Bacteria (Auto) 1+ H (Negative) Urine Crystals Not Reportable Calcium Oxalate Crystal Present A (None Prsent) Lyme Disease IgG Ab Negative (Negative) Lyme Disease IgM Ab Negative (Negative) 03/05/20 Range/Units 04:25 WBC (4.8-10.8) K/uL RBC (4.7-6.1) M/uL Hgb (14.0-18.0) g/dL Hct (42-52) % MCV (80-100) fL MCH (25-34) pg MCHC (32-36) g/dL RDW Std Deviation (36.4-46.3) fL RDW Coeff of Cirilo (11.5-14.5) % Plt Count (130-400) K/uL MPV (7.4-10.4) fL Immature Gran % (Auto) % Neut % (Auto) % Lymph % (Auto) % [place] % (Auto) % Eos % (Auto) % Baso % (Auto) % Neut # (Auto) (1.4-6.5) K/uL Lymph # (Auto) (1.2-3.4) K/uL [place] # (Auto) (0.11-0.59) K/uL Eos # (Auto) (0-0.5) K/uL Baso # (Auto) (0-0.2) K/uL Immature Gran # (Auto) (0.00-0.02) K/uL ESR (0-14) mm/hr PT (9.0-12.0) Seconds INR (0.9-1.1) APTT (21.0-31.0) Seconds PTT Ratio Sodium (136-145) mmol/L Potassium (3.5-5.1) mmol/L Chloride (98-107) mmol/L Carbon Dioxide (21-32) mmol/L Anion Gap (3-11) BUN (7-18) mg/dl Creatinine (0.6-1.4) mg/dl Est Cr Clr Drug Dosing ml/min Est GFR ( Amer) Est GFR (Non-Af Amer) BUN/Creatinine Ratio (10-20) Glucose (70-99) mg/dl Lactate 2.5 H* (0.4-2.0) mmol/L Calcium (8.5-10.1) mg/dl Magnesium (1.8-2.4) mg/dl Total Bilirubin (0.2-1) mg/dl AST (15-37) U/L ALT (12-78) U/L Alkaline Phosphatase (45-117) U/L Troponin I (0-0.045) ng/ml C-Reactive Protein (0-0.29) mg/dl NT-Pro-B Natriuret Pep (0-900) pg/ml Total Protein (6.4-8.2) gm/dl Albumin (3.4-5.0) gm/dl Globulin (2.5-4.0) gm/dl Albumin/Globulin Ratio (0.9-2) TSH (0.300-4.500) uIu/ml Urine Color Urine Appearance (Clear) Urine pH (4.5-7.5) Ur Specific [place] (1.000-1.030) Urine Protein (Negative) Urine Glucose (UA) (Negative) Urine Ketones (Negative) Urine Blood (Negative) Urine Nitrite (Negative) Urine Bilirubin (Negative) Urine Urobilinogen (Negative) Ur Leukocyte Esterase (Negative) Urine WBC (Auto) (0-5) /hpf Urine RBC (Auto) (0-4) /hpf U Hyaline Cast (Auto) (0-5) /lpf U Epithel Cells (Auto) (0-5) /lpf Urine Bacteria (Auto) (Negative) Urine Crystals Calcium Oxalate Crystal (None Prsent) Lyme Disease IgG Ab (Negative) Lyme Disease IgM Ab (Negative) Diagnostic Findings Arterial duplex - per STAT rad: No arterial stenosis or occlusion MRI L Spine - No acute abnormality. L3-L4 facet arthropathy and left foraminal disc protrusion cause mild bilateral foraminal narrowing. L4-L5 posterior disc bulge and facet arthropathy/ligamentous hypertrophy cause mild bilateral foraminal narrowing. No high grade canal or foraminal stenosis. Visualized distal cord and cauda equina roots are unremarkable ECG Additional Comments: The study shows sinus rhythm at 91bpm, left axis deviation, FY=322, QRS=88, VAd=381, suggestion of old inferior infarct Code Status & VTE Plan Code Status FULL PG Care Time/CCT Total # of Minutes Spent Total Time Spent with Patient: Total time spent is greater than 50% in coordination of care (as documented) at patient's floor/unit and/or counseling patient: Coding Level of Care Code 87064 OBS Care - Level 3 Diagnoses Peripheral neuropathy G62.9 Peripheral neuropathy type: polyneuropathy, unspecified Diabetes mellitus E11.22; N18.4 Diabetes mellitus type: type 2 Diabetes mellitus tank terminal gauger insulin use: without usp use Diabetes mellitus complication status: with kidney complications Diabetes mellitus complication detail: with chronic kidney disease Chronic kidney disease stage: stage 4 (severe) COPD (chronic obstructive pulmonary disease) J43.9 COPD type: emphysema Emphysema type: unspecified Depression F32.9 Depression Type: unspecified CKD (chronic kidney disease) N18.4 Chronic kidney disease stage: stage 4 (severe) Hypertension I10 Hypertension type: essential hypertension CAD (coronary artery disease) I25.10 Coronary Disease-Associated Artery/Lesion type: [place] artery [place] vs. transplanted heart: [place] heart Associated angina: without angina Obstructive sleep apnea of adult G47.33 Dyslipidemia E78.5 (1) Peripheral neuropathy Peripheral neuropathy type: polyneuropathy, unspecified Qualified Code(s): G62.9 - Polyneuropathy, unspecified (2) Diabetes mellitus Diabetes mellitus type: type 2 Diabetes mellitus tank terminal gauger insulin use: without tank terminal gauger use Diabetes mellitus complication status: with kidney complications Diabetes mellitus complication detail: with chronic kidney disease Chronic kidney disease stage: stage 4 (severe) Qualified Code(s): E11.22 - Type 2 diabetes mellitus with diabetic chronic kidney disease; N18.4 - Chronic kidney disease, stage 4 (severe) (3) COPD (chronic obstructive pulmonary disease) COPD type: emphysema Emphysema type: unspecified Qualified Code(s): J43.9 - Emphysema, unspecified (4) Depression Depression Type: unspecified Qualified Code(s): F32.9 - Major depressive disorder, single episode, unspecified (5) CKD (chronic kidney disease) Chronic kidney disease stage: stage 4 (severe) Qualified Code(s): N18.4 - Chronic kidney disease, stage 4 (severe) (6) Hypertension Hypertension type: essential hypertension Qualified Code(s): I10 - Essential (primary) hypertension (7) CAD (coronary artery disease) Coronary Disease-Associated Artery/Lesion type: [place] artery [place] vs. transplanted heart: [place] heart Associated angina: without angina Qualified Code(s): I25.10 - Atherosclerotic heart disease of [place] coronary artery without angina pectoris
[2020-03-05] MEDS ORDERED: ALBUT/IPRATROP 3MG/0.5MG NEB 3 ML VIAL INH PRN (07:00)
[2020-03-05] MEDS ORDERED: DEXTROSE 50% 50 ML SYRINGE IV PRN (07:15)
[2020-03-05] MEDS ORDERED: GLUCOSE 40% GEL 15 GM TUBE PO PRN (07:15)
[2020-03-05] MEDS ORDERED: ONDANSETRON INJ 2 MG/ML 2 ML VIAL IV PRN (07:15)
[2020-03-05] MEDS ORDERED: GLUCOSE 10 TABS/TUBE PO PRN (07:15)
[2020-03-05] MEDS ORDERED: CARBOHYDRATES FOR HYPOGLYCEMIA PO PRN (07:15)
[2020-03-05] MEDS ORDERED: GLUCAGON FOR INJ 1 MG VIAL SQ PRN (07:15)
[2020-03-05] MEDS: SODIUM CHLORIDE 0.9% 1000ML 1,000 ML IV SCH ×2 (07:25→20:06)
--- NOTE | 2020-03-05 07:52 | Ultrasound Report ---
US arterial duplex LE BI CLINICAL HISTORY: Acute b/l LE weakness bilateral leg pain COMPARISON STUDY: 12/13/2018 FINDINGS: Calculated ankle brachial indices are 0.9 and the right and 1.1 and the left. On the right, there is triphasic flow within the common femoral superficial femoral popliteal anterio r tibial posterior tibial and peroneal arteries. On the left there was triphasic flow within the left common femoral superficial femoral popliteal and posterior tibial artery. There is biphasic flow wit hin the left peroneal and anterior tibial artery. There are no high velocity jets to indicate a focal stenosis. IMPRESSION: No evidence of lower extremity arterial stenosis. ACT 112: Negative or not required by law. Electronically signed by: Rian Hess M.D. 03/05/2020 7:50 AM
--- NOTE | 2020-03-05 07:59 | Magnetic Resonance Report ---
MR lumbar spine wo con CLINICAL HISTORY: Bilateral lower extremity weakness TECHNIQUE: Sagittal and axial T1, T2 and STIR images were obtained. COMPARISON STUDY: November 2018 OBSERVATIONS: The vertebral bodies and posterior elements appear intact. There is no abnormal bony signal present t o suggest a marrow replacement process. Localizer images reveal left-sided hydronephrosis, a finding present in November 2018 L1-2: No disc protrusions or extrusions. No evidence of spinal canal or neural foraminal compromise. L2-3: No disc protrusions or extrusions. No evidence of spinal canal or neural foraminal compromise. L3-4: There is a mild circumferential disc bulge and minimal left foraminal disc protrusion. There is a slight triangular configuration of the thecal sac but significant spinal stenosis is not felt to b e present. There is minimal left-sided foraminal narrowing L4-5: There is a mild circumferential disc bulge. There is mild facet joint arthropathy. There is a s light triangular configuration thecal sac but significant spinal stenosis is not felt to be present. There is no significant foraminal narrowing L5-S1: No disc protrusions or extrusions. No evidence of spinal canal or neural foraminal compromise. The conus medullaris and cauda equina appear normal. IMPRESSION: 1. Mild multilevel spondylytic changes 2. No evidence of high-grade spinal stenosis 3. Left-sided hydronephrosis ACT 112: Negative or not required by law. Electronically signed by: Rian Hess M.D. 03/05/2020 7:57 AM
[2020-03-05] MEDS ORDERED: INSULIN GLARGINE SOLOSTAR 100 UNITS/ML 3 ML PEN SC SCH (09:00)
[2020-03-05] MEDS ORDERED: HEPARIN SOD 5,000 UNIT/0.5 ML VIAL SQ SCH (09:00)
--- NOTE | 2020-03-05 09:35 | CT Scan Report ---
CT SCAN OF THE ABDOMEN AND PELVIS WITHOUT CONTRAST CLINICAL HISTORY: hydronephrosis, history of kidney stones COMPARISON STUDY: 05/22/2019 TECHNIQUE: CT scan of the abdomen and pelvis was performed from the lung bases to the proximal femurs . Images are reviewed in the axial, sagittal, and coronal planes. IV contrast was not administered fo r this examination. A dose lowering technique was utilized adhering to the principles of ALARA. CT DOSE: 1267.70 mGycm FINDINGS: Lower chest: There is a persistent 6.6 cm left lower lobe bulla. There is left lower lobe atelectasis . There are coronary artery calcifications. There is trace pericardial fluid. Liver: There is hepatic steatosis. No focal hepatic masses are visualized in this noncontrast study Gallbladder: Cholelithiasis Spleen: Normal in size and attenuation. Pancreas: Unremarkable. Adrenal glands: There is a 4.2 cm right adrenal mass containing a focus of macroscopic fat. This kayla ins unchanged from the prior study. 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 There are multiple lower pole left renal calculi. There is an irregularly-shaped 7 mm proximal left ureteral calculus. No additiona l renal calculi are visualized. There is a 6 mm bladder calculus. Bowel: There are no transition zones to indicate bowel obstruction. There is mild to moderate fecal r etention. There is no evidence of acute diverticulitis. There are no findings to indicate acute appen dicitis. Peritoneum: There is no intraperitoneal free air or abdominal ascites. Is a fat-containing right ingu inal hernia. Vasculature: The abdominal aorta is normal in course and caliber. Adenopathy: None. Pelvic viscera: There is a bladder calculus. Skeletal structures: There is a left iliac bone island. IMPRESSION: 1. Left-sided nephrolithiasis 2. 7 mm proximal left ureteral calculus with secondary obstructive change 3. 6 mm bladder calculus 4. No evidence of bowel obstruction. No evidence of free air. Mild to moderate fecal retention. ACT 112: Negative or not required by law. Electronically signed by: Rian Hess M.D. 03/05/2020 9:34 AM
[2020-03-05] MEDS: METOPROLOL TARTRATE 100 MG TAB PO SCH ×2 (09:58→21:14)
[2020-03-05] MEDS: ROSUVASTATIN CALCIUM 20 MG TAB PO SCH (09:58)
[2020-03-05] MEDS: CLOPIDOGREL BISULFATE 75 MG TAB PO SCH (09:58)
[2020-03-05] MEDS: BuPROPion SR 150 MG TABCR PO SCH ×2 (09:59→20:43)
[2020-03-05] MEDS: FLUTICASONE/VILANTEROL 100/25MCG 14 PUFFS/INHALER INH SCH (09:59)
[2020-03-05] MEDS: POLYETHYLENE (MIRALAX) 17 GM PACK PO SCH (09:59)
[2020-03-05] MEDS: FINASTERIDE 5 MG TAB PO SCH (09:59)
[2020-03-05] MEDS: INSULIN ASPART 100 UNITS/ML 3 ML PEN SC SCH ×3 (10:01→19:21)
[2020-03-05] MEDS: cefTRIAXone SODIUM 2,000 MG in DEXTROSE 5% 50 ML IV SCH (11:18)
--- NOTE | 2020-03-05 14:21 | Hospitalist Progress Note ---
Date of Service March 05, 2020 Assessment & Plan (1) Lower extremity weakness: Likely combination of neuropathy and acute illness MRI spine showing: mild multilevel spondylitic changes, no evidence of high- grade spinal stenosis MRI also showed incidentally hydronephrosis - followed up with CT abd/pelvis which showed 7 mm proximal left ureteral calculus with secondary obstructive change and 6 mm bladder calculus which patient likely passed today. Calculus sent for testing. PT/OT (2) Ureteral stone: With left hydronephrosis. History of calculus and left hydronephrosis CT abd/pelvis showing 7 mm proximal left ureteral calculus. Consulted urology (3) UTI (urinary tract infection): UA with apparent infection. Perinephric stranding on CT abd/pelvis. Urine culture pending Lactic 2.5 on admission, CRP elevated Initiated ceftriaxone (4) Peripheral neuropathy: Patient with distal neuropathy of bilateral LE, history of the same thought to be secondary to diabetes. Acute worsening over the last 1-2 weeks to the point that he is unable to ambulate and his is unable to care for him. -B12 wnl, rpr non reactive -Consider Gabapentin when renal function improves although patient had taken this in the past without much improvement (5) CKD (chronic kidney disease): Baseline creat around 2.7, was 3.3 last evening. Electrolytes, bicarb wnl. Will check again this afternoon as patient has had low urine output today -Continue IVF with NSS at 80mL/hr -Consult nephrology (6) Diabetes mellitus: Elevated blood sugar, [id number] -Hold oral agents -Continue Lantus 10u BID with ISS -Goal blood sugar 100 - 140 (7) COPD (chronic obstructive pulmonary disease): Stable respiratory status -O2 as needed -Continue Breo -Continue DuoNeb PRN (8) Depression: Chronic. Well controlled -Continue Bupropion (9) Hypertension: Blood pressure stable -Hold HCTZ, hold Lasix -Continue Metoprolol (10) CAD (coronary artery disease): Stable. No angina -Continue ASA, Plavix, Metoprolol, Rosuvastatin (11) Obstructive sleep apnea of adult: Patient does not wear CPAP -Supplemental O2 as needed (12) Dyslipidemia: Chronic. Stable -Continue Crestor (13) DVT prophylaxis: heparin Admission and Anticipated Discharge Date Admission Date: March 05, 2020 Subjective Mr. Stephenson is very weak in his lower extremities. His bilateral toes are numb and the numbness extends to some degree to ankle in both feet. This has been ongoing. No numbness in either hand. He reports hematuria and pain with urination. ROS Constitutional: no chills, aches, sweats or fever Respiratory: no sob,cough, sputum, or wheezing Cardiac: no chest pain, palpitations, edema, orthopnea or lightheadedness GI: no abdominal pain, nausea, vomiting, diarrhea or constipation : see HPI Extremities: no joint pain or weakness Skin: no rash All other systems reviewed and negative Physical Exam Physical Exam: General: no distress Eyes: normal inspection, PERLL Respiratory: chest non tender, clear to auscultation, normal breath sounds, no respiratory distress, no accessory muscle use Cardiac: regular rate and rhythm, no rub or gallop, no murmur, no edema, no jvd GI/: active bowel sounds, no abd pain or tenderness, soft, non distended Extremities: normal range of motion, normal strength, non tender Neuro/Psych: alert and oriented x 3, normal mood and affect Skin: normal color, dry Results & Data Results & Data ([facility]) Vital Signs (Past 12 Hours) Vital Signs Temp Pulse Pulse Resp BP BP Pulse Ox 03/05/20 06:58 36.8 C 95 H 22 149/90 H 95 03/05/20 06:35 37.0 C 03/05/20 06:30 92 H 19 143/79 H 93 03/05/20 06:00 91 H 20 134/86 93 03/05/20 05:31 95 H 20 133/60 94 03/05/20 05:00 92 H 21 125/76 91 03/05/20 04:35 93 H 20 134/74 94 03/05/20 03:34 20 119/92 94 PG Care Time/CCT Total # of Minutes Spent Total Time Spent with Patient: Total time spent is greater than 50% in coordination of care (as documented) at patient's floor/unit and/or counseling patient: Coding Level of Care Code 27173 Subseq Hosp Care Lvl 3 Diagnoses Lower extremity weakness R29.898 Ureteral stone N20.1 UTI (urinary tract infection) N39.0 Peripheral neuropathy G62.9 Peripheral neuropathy type: polyneuropathy, unspecified CKD (chronic kidney disease) N18.4 Chronic kidney disease stage: stage 4 (severe) Diabetes mellitus E11.22; N18.4 Chronic kidney disease stage: stage 4 (severe) Diabetes mellitus complication detail: with chronic kidney disease Diabetes mellitus complication status: with kidney complications Diabetes mellitus intermodal customer service insulin use: without intermodal customer service use Diabetes mellitus type: type 2 COPD (chronic obstructive pulmonary disease) J43.9 COPD type: emphysema Emphysema type: unspecified Depression F32.9 Depression Type: unspecified Hypertension I10 Hypertension type: essential hypertension CAD (coronary artery disease) I25.10 Associated angina: without angina Coronary Disease-Associated Artery/Lesion type: [place] artery [place] vs. transplanted heart: [place] heart Obstructive sleep apnea of adult G47.33 Dyslipidemia E78.5 DVT prophylaxis Z29.9 (1) Diabetes mellitus Chronic kidney disease stage: stage 4 (severe) Diabetes mellitus complication detail: with chronic kidney disease Diabetes mellitus complication status: with kidney complications Diabetes mellitus half-way insulin use: without half-way use Diabetes mellitus type: type 2 Qualified Code(s): E11.22 - Type 2 diabetes mellitus with diabetic chronic kidney disease; N18.4 - Chronic kidney disease, stage 4 (severe) (2) CAD (coronary artery disease) Associated angina: without angina Coronary Disease-Associated Artery/Lesion type: [place] artery [place] vs. transplanted heart: [place] heart Qualified Code(s): I25.10 - Atherosclerotic heart disease of [place] coronary artery without angina pectoris (3) Depression Depression Type: unspecified Qualified Code(s): F32.9 - Major depressive disorder, single episode, unspecified (4) CKD (chronic kidney disease) Chronic kidney disease stage: stage 4 (severe) Qualified Code(s): N18.4 - Chronic kidney disease, stage 4 (severe) (5) Peripheral neuropathy Peripheral neuropathy type: polyneuropathy, unspecified Qualified Code(s): G62.9 - Polyneuropathy, unspecified (6) COPD (chronic obstructive pulmonary disease) COPD type: emphysema Emphysema type: unspecified Qualified Code(s): J43.9 - Emphysema, unspecified (7) Hypertension Hypertension type: essential hypertension Qualified Code(s): I10 - Essential (primary) hypertension
[2020-03-05 16:13] LABS: BUN Creatinine Ratio 8.3 (10-20); Calcium 9.1 mg/dl (8.5-10.1); Creatinine Clr Calc Pharmacy 33.7 ml/min; Est GFR (African American) 22.8; Est GFR (Non-African American) 19.7; Potassium 3.7 mmol/L (3.5-5.1)
--- NOTE | 2020-03-05 16:36 | Nephrology Consultation ---
Date of Consultation March 05, 2020 Assessment & Plan (1) Acute kidney injury: * EDILMA related to L ureteral obstruction by kidney stone * Volume status and electrolyte balance acceptable at this time * Monitor PRP (2) Chronic kidney disease: * Diabetic nephropathy. Baseline Cr 2.3 - 2.5 depending upon volume status (3) Kidney stone on left side: * Abd CT film reviewed today: L hydronephrosis due to ureteral stone * Urology has been consulted * Agree w/ empiric Ceftriaxone therapy. No dose adjustment needed for EDILMA/CKD * No clinical signs of active infection. Await blood and urine cx results * Continue hydration w/ 0.9 NS to maintain UO History of Present Illness Reason for Consultation: EDILMA/CKD Attending Physician: Brunilda King DO History of Present Illness Mr. Stephenson is a 69 year old white male who is seen at the request of Sybil Winston PA-c for evaluation of EDILMA/CKD. Medical records in the EMR were reviewed today and are summarized as follows: Mr. Stephenson has stage IV CKD (advanced impairment). Baseline Cr has been 2.3 - 2.5 (EGFR ~ 25 cc/min) depending upon volume status. His Physical Instructor is Dr. Man. Mr. Stephenson's medical history is also significant for calcium based kidney stones, AODM, obesity, COPD, SREEKANTH, HTN and peripheral neuropathy. Mr. Stephenson presented to the ED last evening for evaluation of progressive neuropathy. He is numb from the knees distally and no longer able to ambulate. MRI was negative for high grade spinal stenosis but revealed L hydronephrosis. Cr was 3.1. Noncontrast abdominal CT revealed several stones within the L kidney, L hydronephrosis and a proximal 7 mm L ureteral stone. A 6 mm stone was also noted in the bladder. Mr. Stephenson has been admitted to the hospitalist service and started on IV hydration and Ceftriaxone therapy. Blood and urine cultures are pending. Mr. Stephenson currently c/o L flank discomfort but denies fever. He reports that he passed a large stone ~ 2 hours ago. Allergies Allergy/AdvReac Type Severity Reaction Status Date / Time azithromycin AdvReac Intermediate diarrhea Verified 03/05/20 01:10 Home Medications Home Medications Medication Instructions Recorded Confirmed Type cholecalciferol (vitamin D3) 1,000 unit PO BID 08/22/18 03/05/20 History [Vitamin D3] latanoprost [Xalatan] 1 drp OPB HS 08/22/18 03/05/20 History nitroglycerin [Nitrostat] 0.4 mg SUBLINGUAL UD PRN 08/22/18 03/05/20 History polyethylene glycol 3350 [Miralax] 17 g PO Q OTHER DAY 08/22/18 03/05/20 History aspirin [Aspir-81] 81 mg PO QPM #0 tab 09/14/18 03/05/20 Rx ipratropium 0.5 mg-albuterol 3 mg 3 ml INHALATION QID PRN #180 ml 04/09/19 03/05/20 Rx (2.5 mg base)/3 mL nebulization soln Breo Ellipta 1 inh INHALATION QAM 06/24/19 03/05/20 History finasteride 5 mg tablet 5 mg PO QAM #90 tab 09/03/19 03/05/20 Rx Saccharomyces boulardii 1 ea PO DAILY 11/01/19 03/05/20 History pen needle, diabetic 31 gauge x #50 ea 11/04/19 02/19/20 Rx 3/16" trospium 60 mg capsule,extended 60 mg PO DAILY #90 cap 01/07/20 03/05/20 Rx release 24 hr clopidogrel 75 mg tablet 75 mg PO DAILY #90 tab 01/21/20 03/05/20 Rx blood sugar diagnostic #50 ea 02/19/20 02/19/20 Rx bupropion HCl 150 mg tablet,12 hr See Rx Instructions .ROUTE 02/19/20 03/05/20 Rx sustained-release .COMPLEX #180 tab furosemide 20 mg tablet 20 mg PO DAILY PRN #90 tab 02/19/20 03/05/20 Rx glimepiride 2 mg tablet See Rx Instructions .ROUTE 02/19/20 03/05/20 Rx .COMPLEX #180 tab hydrochlorothiazide 25 mg tablet 25 mg PO DAILY #90 tab 02/19/20 03/05/20 Rx lancets 33 gauge #100 ea 02/19/20 02/19/20 Rx metoprolol tartrate 100 mg tablet 100 mg PO BID #180 tab 02/19/20 03/05/20 Rx rosuvastatin 40 mg tablet 40 mg PO DAILY #90 tab 02/19/20 03/05/20 Rx Patient History Medical History BPH (benign prostatic hyperplasia) CAD (coronary artery disease) Acute [place] 03/2011, complicated by 3 episodes of v fib requiring electrical shock- ZITA x2 CKD (chronic kidney disease) COPD (chronic obstructive pulmonary disease) Severe, per pulm- 2L N/C prn (per patient, typically uses rarely/monthly) Diabetes mellitus GERD (gastroesophageal reflux disease) Hypertension Hypophosphatemia Nephrolithiasis Obstructive sleep apnea of adult no device. patient refuses CPAP Surgical History History of bilateral cataract extraction History of cardiac cath 2010- stents x2 History of carpal tunnel release right History of colonoscopy Colonoscopy: 03/18/19: MAC sedation at [facility] History of lithotripsy Left ESWL: 09/14/18: LMA#5 [place] [facility] [place] at [place]: 135.1kg) History of lithotripsy Left ESWL 06/07/19 [facility] History of tooth extraction Hx of transurethral resection of prostate S/P cystoscopy with ureteral stent placement 08/23/2018. MAC. No issues. Social History Preferred Language: Uzbek Communication Ability: Effective Visual Impairment: No Limitations Hearing Ability: Normal Coining Press Operator Required: No Beliefs That Will Affect Care: None marital status: Current Living Situation: Spouse Feels Safe at Home: Yes Smoking Status: Former smoker Tobacco Type: cigarettes ; Cigarettes Per Day: 40 ; Number of Years Since Quit: 2 ; Second Hand Exposure: No ; Hx Alcohol Use: No Hx Substance Use: No Dental Care, Regularly: Yes Seatbelt Use: sometimes Review of Systems Constitutional: + weakness; no fever Eyes: no problem reported Ear, Nose, Mouth, Throat: no problem reported Respiratory: no cough and no dyspnea Cardiovascular: no chest pain and no palpitations Gastrointestinal: no abdominal pain, no nausea, no vomiting and no diarrhea/loose stools Genitourinary: + dysuria and + hematuria; no urinary hesitancy Musculoskeletal: + back pain Integumentary: no rash Neurologic: no falls Physical Exam Constitutional: + obese Eyes: PERRL, conjunctivae normal, anicteric sclerae ENMT: external ear and nose normal, oropharynx normal Neck: trachea midline, no thyromegaly Respiratory: normal respiratory effort, lungs clear to auscultation Cardiovascular: Rate/Rhythm: regular rate and regular rhythm Extremities: + edema (trace LE edema) Gastrointestinal (Abdomen): normal bowel sounds, soft, nontender, no hepatosplenomegaly Musculoskeletal: Extremities: no cyanosis Skin: no rashes, warm and dry Neurologic: awake; not confused Results & Data Vital Signs (Past 12 Hours) Vital Signs Temp Pulse Pulse Resp BP BP Pulse Ox 03/05/20 15:54 37.1 C 78 17 123/82 96 03/05/20 06:58 36.8 C 95 H 22 149/90 H 95 03/05/20 06:35 37.0 C 03/05/20 06:30 92 H 19 143/79 H 93 03/05/20 06:00 91 H 20 134/86 93 03/05/20 05:31 95 H 20 133/60 94 03/05/20 05:00 92 H 21 125/76 91 03/05/20 04:35 93 H 20 134/74 94 Laboratory Results Laboratory Tests 03/04/20 03/05/20 03/05/20 22:10 01:50 15:32 WBC 11.00 H Hgb 13.3 L Hct 41.2 L Plt Count 158 Sodium 142 Potassium 3.7 Chloride 110 H Carbon Dioxide 27 BUN 26 H Creatinine 3.11 H Glucose 195 H Urine Color Yellow Urine Appearance Cloudy A Urine pH 5.5 Ur Specific [place] 1.021 Urine Protein 2+ H Urine Glucose (UA) 2+ H Urine Ketones Trace H Urine Blood 1+ H Urine Nitrite Negative Urine Bilirubin Negative Urine Urobilinogen Negative Ur Leukocyte Esterase 1+ H Urine WBC (Auto) >30 H Urine RBC (Auto) 0-4 Urine Bacteria (Auto) 1+ H Calcium Oxalate Crystal Present A 03/05/20 Blood and urine cultures - pending PG Care Time/CCT Total # of Minutes Spent Total Time Spent with Patient: Total time spent is greater than 50% in coordination of care (as documented) at patient's floor/unit and/or counseling patient: Coding Level of Care Code 59284 Inpt Consult Level 5 Diagnoses Acute kidney injury N17.9 Chronic kidney disease N18.9 Kidney stone on left side N20.0
[2020-03-05] MEDS ORDERED: PHARMACY GLYCEMIC MGMT CONSULT PRN (17:36)
[2020-03-05] MEDS ORDERED: Nursing to Pharmacy Communication SCH ×2 (17:45→23:45)
[2020-03-05] MEDS ORDERED: INSULIN ASPART 100 UNITS/ML 3 ML PEN SC SCH (18:00)
--- NOTE | 2020-03-05 19:07 | Pharmacy Report ---
Glycemic Control Consultation - Date of Service March 05, 2020 - Scope Scope: Glycemic Pharmacist consulted for glycemic control and to write orders per [facility] inpatient glycemic control protocol. - Objective Weight: 145.15 kg Accuchecks BSG (last 24hrs): 03/04/20 03/05/20 03/05/20 22:10 08:12 12:01 Glucose 246 H POC Glucose 248 H 230 H 03/05/20 03/05/20 15:32 17:49 Glucose 195 H POC Glucose 196 H Laboratory Data (last 24hrs): 03/04/20 03/05/20 22:10 15:32 Potassium 3.7 3.7 Carbon Dioxide 25 27 Anion Gap 9.0 5.0 Creatinine 3.30 H 3.11 H Est Cr Clr Drug Dosing 30.0 33.7 - Recent Pertinent Medications Outpatient Anti-diabetic Regimen: * Trulicity 1.5 mg SC qMonday, metformin, glimepiride * A1c = 7.9 % (02/03/20) * Per conversation with patient - patient's manages medications for patient - Assessment & Plan Assessment & Plan: ASSESSMENT: * SK is a 69 year old male who presents with 1-2 weeks of progressive bilateral LE numbness, weakness, and gait instability. * CT revealed left-sided nephrolithiasis with ureteral/bladder calculi * Patient to undergo surgical intervention this evening * BSGs elevated so far today - ranging 195-248 mg/dL PLAN FOR INPATIENT GLYCEMIC CONTROL: * Holding outpatient oral diabetes medications * Basal insulin * Lantus scale (0-15 units) - see EHR for details * Will be conservative and only give basal if BSG is > 160 mg/dL * Will reassess basal in AM * Bolus insulin * NovoLog per scale ACHS or Q6hrs while NPO * Goal Range: Low 110 mg/dL - High 140 mg/dL * Correction Factor: 25 mg/dL/unit * Nutritional / Prandial insulin per carb ratio of 1 unit per 8 grams CHO consumed * Overnight check at 0400 with same parameters * Please note that the plan above was derived based on current level of insulin resistance and hospital stress. These recommendations are appropriate for inpatient admission only. Plan of care upon discharge will need to be reassessed to avoid potential outpatient hypo/hyperglycemia. Thank you.
[2020-03-05] MEDS: ASPIRIN 81 MG ECTAB PO SCH (20:42)
[2020-03-05] MEDS: LATANOPROST 0.005% OP SOLN 2.5 ML BTL OPB SCH (20:43)
[2020-03-05] MEDS: INSULIN GLARGINE SOLOSTAR 100 UNITS/ML 3 ML PEN SC SCH (21:27)
--- NOTE | 2020-03-05 21:44 | Urology Consultation ---
Date of Consultation March 05, 2020 Assessment & Plan (1) Acute kidney injury: (2) Kidney stone on left side: Risks and benefits discussed at length for procedure. These include bleeding, infection, injury to surrounding tissues or organs, and risks associated with anesthesia. Patient states understanding and agrees to proceed. Will sign consent and schedule. Will have cystoscopy with retrograde pyelogram and stent placement on left. Agree with supportive care and management. Patient has multiple heart and other comorbidities and is higher risk with renal failure on chronic failure. Will plan on treatment after appropriate time to resolve other issues and to stablize chronic issues. Patient's complicated medical and surgical history was reviewed and summarized above. All imaging was reviewed interpreted by myself. History of Present Illness Attending Physician: Brunilda King, History of Present Illness New consultation for patient with stone, discomfort, obstruction, and ill feelings. Previous patient of Dr. Delgado and is previously had obstructing stones were needing intervention. Patient developed sudden onset of pain into flank going down and radiating into groin and back in waves comes and goes. Can be severe at times. Discussed and reviewed patient's family history for any history of stone disease . Also, discussed patient's medical surgery history especially related to any history of urinary issues or stone disease. Patient was admitted and is undergoing observation.Had a significant increase in his creatinine and development of acute renal failure with obstruction. Has been passing small bladder stones as well. Allergies Allergy/AdvReac Type Severity Reaction Status Date / Time azithromycin AdvReac Intermediate diarrhea Verified 03/05/20 01:10 Home Medications Home Medications Medication Instructions Recorded Confirmed Type cholecalciferol (vitamin D3) 1,000 unit PO BID 08/22/18 03/05/20 History [Vitamin D3] latanoprost [Xalatan] 1 drp OPB HS 08/22/18 03/05/20 History nitroglycerin [Nitrostat] 0.4 mg SUBLINGUAL UD PRN 08/22/18 03/05/20 History polyethylene glycol 3350 [Miralax] 17 g PO Q OTHER DAY 08/22/18 03/05/20 History aspirin [Aspir-81] 81 mg PO QPM #0 tab 09/14/18 03/05/20 Rx ipratropium 0.5 mg-albuterol 3 mg 3 ml INHALATION QID PRN #180 ml 04/09/19 03/05/20 Rx (2.5 mg base)/3 mL nebulization soln Breo Ellipta 1 inh INHALATION QAM 06/24/19 03/05/20 History finasteride 5 mg tablet 5 mg PO QAM #90 tab 09/03/19 03/05/20 Rx Saccharomyces boulardii 1 ea PO DAILY 11/01/19 03/05/20 History pen needle, diabetic 31 gauge x #50 ea 11/04/19 02/19/20 Rx 3/16" trospium 60 mg capsule,extended 60 mg PO DAILY #90 cap 01/07/20 03/05/20 Rx release 24 hr clopidogrel 75 mg tablet 75 mg PO DAILY #90 tab 01/21/20 03/05/20 Rx blood sugar diagnostic #50 ea 02/19/20 02/19/20 Rx bupropion HCl 150 mg tablet,12 hr See Rx Instructions .ROUTE 02/19/20 03/05/20 Rx sustained-release .COMPLEX #180 tab furosemide 20 mg tablet 20 mg PO DAILY PRN #90 tab 02/19/20 03/05/20 Rx glimepiride 2 mg tablet See Rx Instructions .ROUTE 02/19/20 03/05/20 Rx .COMPLEX #180 tab hydrochlorothiazide 25 mg tablet 25 mg PO DAILY #90 tab 02/19/20 03/05/20 Rx lancets 33 gauge #100 ea 02/19/20 02/19/20 Rx metoprolol tartrate 100 mg tablet 100 mg PO BID #180 tab 02/19/20 03/05/20 Rx rosuvastatin 40 mg tablet 40 mg PO DAILY #90 tab 02/19/20 03/05/20 Rx Patient History Medical History BPH (benign prostatic hyperplasia) CAD (coronary artery disease) Acute [place] 03/2011, complicated by 3 episodes of v fib requiring electrical shock- ZITA x2 COPD (chronic obstructive pulmonary disease) Severe, per pulm- 2L N/C prn (per patient, typically uses rarely/monthly) Diabetes mellitus GERD (gastroesophageal reflux disease) Hypertension Hypophosphatemia Nephrolithiasis Obstructive sleep apnea of adult no device. patient refuses CPAP Surgical History History of bilateral cataract extraction History of cardiac cath 2011- stents x2 History of carpal tunnel release right History of colonoscopy Colonoscopy: 03/18/19: MAC sedation at [facility] History of lithotripsy Left ESWL: 09/14/18: LMA#5 at [facility] [place] (weight at time: 135.1kg) History of lithotripsy Left ESWL 06/07/19 [facility] History of tooth extraction Hx of transurethral resection of prostate S/P cystoscopy with ureteral stent placement 08/23/2018. MAC. No issues. Family History Mother Family history of diabetes mellitus Coronary heart disease [place] Father Coronary heart disease [place] Myocardial infarction Other No family history of adverse response to anesthesia Denies family history of Ovarian cancer Prostate cancer Breast cancer Colorectal cancer Social History Preferred Language: Slovenian Communication Ability: Effective Visual Impairment: No Limitations Hearing Ability: Normal Supervisor Cabinetmaker Required: No Beliefs That Will Affect Care: None marital status: Current Living Situation: Spouse Feels Safe at Home: Yes Smoking Status: Former smoker Tobacco Type: cigarettes ; Cigarettes Per Day: 40 ; Number of Years Since Quit: 2 ; Second Hand Exposure: No ; Hx Alcohol Use: No Hx Substance Use: No Dental Care, Regularly: Yes Seatbelt Use: sometimes Review of Systems Review of Systems: All systems reviewed & are unremarkable except as noted in HPI & below Physical Exam Physical Exam: General: Alert and oriented x 3 in no acute distress. Morbid obesity HEENT: Normocephalic Atraumatic. Inspection normal. Cranial Nerves 2-12 Grossly intact. Nares are clear. Neck is supple. Normal inspection of face. Normal inspection of neck. Neurologic: No deficits on inspection. Baseline for motor function and sensory. Psychologic: Normal affect. Respiratory: Nonlabored. No use of accessory muscles. No tachypnea or dyspnea. Cardiovascular: No tachycardia Skin: [place] and Dry. No rashes or visible lesions. Extremities: Moving without issues. No motor deficits on inspection Lymphatics: mild edema Abdomen: Soft Moderately distended. No acites. No rebound or guarding.Morbid obesity Results & Data Vital Signs (Past 12 Hours) Vital Signs Temp Pulse Resp BP Pulse Ox 03/05/20 21:12 91 H 135/85 03/05/20 15:54 37.1 C 78 17 123/82 96 PG Care Time/CCT Total # of Minutes Spent Total Time Spent with Patient: Total time spent is greater than 50% in coordination of care (as documented) at patient's floor/unit and/or counseling patient: Coding Level of Care Code 77793 Inpt Consult Level 5 Diagnoses Acute kidney injury N17.9 Kidney stone on left side N20.0
[2020-03-05] MEDS ORDERED: fentaNYL citrate 100 MCG/2 ML VIAL ONE (21:54)
--- NOTE | 2020-03-05 22:00 | Anesthesiology Consultation ---
Date of Service March 05, 2020 Assessment & Plan Chart Review Chart Review: Acceptable Risk for Surgery Consults Requested none History Surgery Operation Date: 03/05/20 17:30 Proposed Procedures p Ureteral Stent Insertion/Removal - Aba Gong DO Height/Weight Height: 5 ft 11 in Weight: 145.15 kg Allergies Allergy/AdvReac Type Severity Reaction Status Date / Time azithromycin AdvReac Intermediate diarrhea Verified 03/05/20 01:10 Medications Home Medications Medication Instructions Recorded Confirmed Last Taken cholecalciferol (vitamin D3) 1,000 unit PO BID 08/22/18 03/05/20 07/03/19 21:00 [Vitamin D3] latanoprost [Xalatan] 1 drp OPB HS 08/22/18 03/05/20 07/03/19 23:00 nitroglycerin [Nitrostat] 0.4 mg SUBLINGUAL UD PRN 08/22/18 03/05/20 Unknown polyethylene glycol 3350 [Miralax] 17 g PO Q OTHER DAY 08/22/18 03/05/20 07/02/19 10:00 aspirin [Aspir-81] 81 mg PO QPM #0 tab 09/14/18 03/05/20 06/05/19 ipratropium 0.5 mg-albuterol 3 mg 3 ml INHALATION QID PRN #180 ml 04/09/19 03/05/20 Unknown (2.5 mg base)/3 mL nebulization soln Breo Ellipta 1 inh INHALATION QAM 06/24/19 03/05/20 07/03/19 21:00 finasteride 5 mg tablet 5 mg PO QAM #90 tab 09/03/19 03/05/20 Unknown Saccharomyces boulardii 1 ea PO DAILY 11/01/19 03/05/20 Unknown pen needle, diabetic 31 gauge x #50 ea 11/04/19 02/19/20 Unknown 3/16" trospium 60 mg capsule,extended 60 mg PO DAILY #90 cap 01/07/20 03/05/20 Unknown release 24 hr clopidogrel 75 mg tablet 75 mg PO DAILY #90 tab 01/21/20 03/05/20 Unknown blood sugar diagnostic #50 ea 02/19/20 02/19/20 Unknown bupropion HCl 150 mg tablet,12 hr See Rx Instructions .ROUTE 02/19/20 03/05/20 Unknown sustained-release .COMPLEX #180 tab furosemide 20 mg tablet 20 mg PO DAILY PRN #90 tab 02/19/20 03/05/20 Unknown glimepiride 2 mg tablet See Rx Instructions .ROUTE 02/19/20 03/05/20 Unknown .COMPLEX #180 tab hydrochlorothiazide 25 mg tablet 25 mg PO DAILY #90 tab 02/19/20 03/05/20 Unknown lancets 33 gauge #100 ea 02/19/20 02/19/20 Unknown metoprolol tartrate 100 mg tablet 100 mg PO BID #180 tab 02/19/20 03/05/20 Unknown rosuvastatin 40 mg tablet 40 mg PO DAILY #90 tab 02/19/20 03/05/20 Unknown Active Medications Generic Name Dose Route Start Last Admin Trade Name Freq PRN Reason Stop Dose Admin Aspirin 81 mg 03/05/20 21:00 03/05/20 20:42 Ecotrin Ectab PO 04/04/20 20:59 Not Given QPM KAYLEEN Bupropion HCl 150 mg 03/05/20 09:00 03/05/20 20:43 Wellbutrin-Sr PO 04/04/20 08:59 Not Given BID KAYLEEN Clopidogrel Bisulfate 75 mg 03/05/20 09:00 03/05/20 09:58 Plavix PO 04/04/20 08:59 75 mg DAILY KAYLEEN Administration Finasteride 5 mg 03/05/20 09:00 03/05/20 09:59 Proscar PO 04/04/20 08:59 5 mg QAM KAYLEEN Administration Fluticasone/Vilanterol 1 puffs 03/05/20 09:00 03/05/20 09:59 Breo Ellipta 100/25 Mcg Inh INH 04/04/20 08:59 Not Given QAM KAYLEEN Sodium Chloride 1,000 mls @ 80 mls/hr 03/05/20 07:15 03/05/20 20:06 Nss 1000ml IV 03/06/20 08:14 80 mls/hr .[id number] KAYLEEN Administration Ceftriaxone Sodium 2,000 mg/ 70 mls @ 100 mls/hr 03/05/20 11:00 03/05/20 12:00 Dextrose IV 03/15/20 10:59 Infused Q24H KAYLEEN Infusion Protocol Insulin Aspart 0 units 03/05/20 18:00 03/05/20 17:53 Novolog Flexpen SC 04/04/20 07:29 3 units Q6 KAYLEEN Administration Insulin Glargine 0 units 03/05/20 21:00 03/05/20 21:27 Lantus Solostar Pen SC 04/04/20 20:59 Not Given BID KAYLEEN Protocol Latanoprost 1 drops 03/05/20 21:00 03/05/20 20:43 Xalatan Oph OPB 04/04/20 20:59 Not Given HS KAYLEEN Metoprolol Tartrate 100 mg 03/05/20 09:00 03/05/20 21:14 Lopressor PO 04/04/20 08:59 100 mg BID KAYLEEN Administration Miscellaneous 1 ea 03/05/20 08:00 03/05/20 15:39 Order Awaiting Action N/A 04/04/20 07:59 Not Given QS AKYLEEN Polyethylene Glycol 17 gm 03/05/20 09:00 03/05/20 09:59 Miralax Powder Packet PO 04/04/20 08:59 17 gm Q2D KAYLEEN Administration Rosuvastatin Calcium 40 mg 03/05/20 09:00 03/05/20 09:58 Crestor PO 04/04/20 08:59 40 mg DAILY KAYLEEN Administration NPO Date Last Intake of Fluids: 03/05/20 Time Last Intake of Fluids: 12:45 Last Intake of Fluids Comment: sips of water/[place] after lunch Date Last Intake of Solids: 03/05/20 Time Last Intake of Solids: 12:45 Past Medical History Medical History BPH (benign prostatic hyperplasia) CAD (coronary artery disease) Acute OR 03/2011, complicated by 3 episodes of v fib requiring electrical shock- ZITA x2 COPD (chronic obstructive pulmonary disease) Severe, per pulm- 2L N/C prn (per patient, typically uses rarely/monthly) Diabetes mellitus GERD (gastroesophageal reflux disease) Hypertension Hypophosphatemia Nephrolithiasis Obstructive sleep apnea of adult no device. patient refuses CPAP Past Family History Family History Mother Family history of diabetes mellitus Coronary heart disease OR Father Coronary heart disease OR Myocardial infarction Other No family history of adverse response to anesthesia Denies family history of Ovarian cancer Prostate cancer Breast cancer Colorectal cancer Past Surgical History Surgical History History of bilateral cataract extraction History of cardiac cath 2011- stents x2 History of carpal tunnel release right History of colonoscopy Colonoscopy: 03/18/19: MAC sedation at [facility] History of lithotripsy Left ESWL: 09/14/[place] [facility] [place]: 135.1[place] History of lithotripsy Left ESWL 06/07/19 [facility] History of tooth extraction Hx of transurethral resection of prostate S/P cystoscopy with ureteral stent placement 08/23/2018. MAC. No issues. Social History Smoking Status: Former smoker tobacco type: cigarettes Smoking cigarettes per day: 40 Do You Dip or Chew Tobacco: No Hx Alcohol Use: No Hx Substance Use: No substance use type: does not use Physical Exam Vital Signs Last Vital Signs Temp 37.1 C 03/05/20 15:54 Pulse 91 H 03/05/20 21:12 Resp 17 03/05/20 15:54 BP 135/85 03/05/20 21:12 Pulse Ox 96 03/05/20 15:54 Testing Laboratory Results 03/04/20 22:10 03/05/20 15:32 PT 11.0 Seconds (9.0-12.0) 03/04/20 22:10 INR 1.0 (0.9-1.1) 03/04/20 22:10 APTT 26.5 Seconds (21.0-31.0) 03/04/20 22:10 Urine Color Yellow 03/05/20 01:50 Urine Appearance Cloudy (Clear) A 03/05/20 01:50 Urine pH 5.5 (4.5-7.5) 03/05/20 01:50 Ur Specific [place] 1.021 (1.000-1.030) 03/05/20 01:50 Urine Protein 2+ (Negative) H 03/05/20 01:50 Urine Glucose (UA) 2+ (Negative) H 03/05/20 01:50 Urine Ketones Trace (Negative) H 03/05/20 01:50 Urine Nitrite Negative (Negative) 03/05/20 01:50 Ur Leukocyte Esterase 1+ (Negative) H 03/05/20 01:50 Urine WBC (Auto) >30 /hpf (0-5) H 03/05/20 01:50 Urine RBC (Auto) 0-4 /hpf (0-4) 03/05/20 01:50 U Hyaline Cast (Auto) 1-5 /lpf (0-5) 03/05/20 01:50 U Epithel Cells (Auto) 0-5 /lpf (0-5) 03/05/20 01:50 Urine Bacteria (Auto) 1+ (Negative) H 03/05/20 01:50 03/05/20 03/05/20 03/05/20 21:10 17:49 12:01 POC Glucose 159 H 196 H 230 H
[2020-03-05] MEDS ORDERED: PROPOFOL IV EMULSION 10 MG/ML 20 ML VIAL IV ONE (22:29)
[2020-03-05] MEDS ORDERED: LIDOCAINE HCL 2% 2 ML VIAL/AMP(20MG/ML) INFIL ONE (22:29)
[2020-03-05] MEDS ORDERED: BELLADONNA/OPIUM SUPP 60 MG SUPP PR ONE (22:39)
--- NOTE | 2020-03-05 22:46 | Operative Report ---
PG Post Operative Report Pre & Post Diagnosis Operation Date: 03/05/20 17:30 Pre-Op Diagnosis: Left ureteral Stone with obstructive uropathy Same with left ureteral stricture. I identified the patient and participated in the time-out.: Yes Procedure Operation Date: 03/05/20 17:30 Actual Procedures p Cystoscopy and evacuation of debris/bladder stones, Left Retrograde Pyelogram, ureteroscopy with dilation of ureter and Ureteral Stent Insertion(Left) - Aba Gong, Surgeon Aba Gong, II, DO Stripper Latex None Estimated Blood Loss 1 Findings Consistent with Post-Op Diagnosis Ureter dilated with stent placement. Severe debris and stone material in base of bladder. Specimens None Drains 6 Fr Multilength 20 Fr Coude catheter Anesthesia Type MAC Complications none Disposition Disposition: Recovery Room Indications Patient with bothersome stones and acute renal failure on chronic kidney disease. Risks and benefits discussed at length. Description of Procedure Patient was consented and brought back to the operating room. Patient was placed under anesthesia in the supine position and moved to the dorsal lithotomy position. Patient was prepped and draped in the regular sterile fashion. A time out was completed. A 30degree Cystoscope was placed into the bladder and the entire bladder was examined. The bladder was distended and a large amount debris and stone material likely bladder stones were appreciated. These were irrigated out and evacuated. The UO's were identified. The UO was cannulized with a catheter and a retrograde pyelogram was completed. Significant stricture was noted and would not allow advancement of the catheter or wire. A wire was then placed partially manipulated into the ureter. The Rigid ureteroscope was taken into the ureter. The stricture was discovered at the UO/distal ureter and able to be bypassed and dilated and the wire was then placed through the scope and advanced to the renal pelvis. The scope was slowly removed with the wire left in place. Over the wire a dual lumen catheter was placed. Contrast was placed through the catheter for a pyelogram to assist in stent placement. The pelvis was noted to be extremely dilated. With the wire in place, a 6 Fr Double J stent was placed. It was confirmed with fluoroscopy. With the stent in place, the bladder was emptied. The scope was removed. A 20 Fr Coude catheter was placed for drainage. The patient was cleaned, aroused from anesthesia, and transferred to the pacu in stable condition having tolerated the procedure well with no complications. I was present and participated in all aspects of the procedure. The patient will be monitored in the PACU until transferred. I attest to the content of the Intraoperative Record and any orders documented therein. Any exceptions are noted below.
--- NOTE | 2020-03-05 23:04 | Anesthesiology Progress Note ---
Date of Service March 05, 2020 Anesthesia Post Procedure Vital Signs Vital Signs: Temp Pulse Pulse Pulse Resp BP BP 03/05/20 22:55 90 19 156/103 H 03/05/20 22:49 37.5 C 86 19 135/83 03/05/20 21:12 91 H 03/05/20 15:54 37.1 C 78 17 03/05/20 06:58 36.8 C 95 H 22 03/05/20 06:35 37.0 C 03/05/20 06:30 92 H 19 143/79 H 03/05/20 06:00 91 H 20 134/86 03/05/20 05:31 95 H 20 133/60 03/05/20 05:00 92 H 21 125/76 03/05/20 04:35 93 H 20 134/74 03/05/20 03:34 20 119/92 03/05/20 02:00 96 H 26 H 165/111 H 03/05/20 01:30 93 H 19 182/109 H 03/05/20 01:00 90 19 152/90 H 03/05/20 00:41 91 H 21 130/91 BP Pulse Ox 03/05/20 22:55 98 03/05/20 22:49 99 03/05/20 21:12 135/85 03/05/20 15:54 123/82 96 03/05/20 06:58 149/90 H 95 03/05/20 06:35 03/05/20 06:30 93 03/05/20 06:00 93 03/05/20 05:31 94 03/05/20 05:00 91 03/05/20 04:35 94 03/05/20 03:34 94 03/05/20 02:00 94 03/05/20 01:30 95 03/05/20 01:00 94 03/05/20 00:41 94 Transfer of Care Handoff Completed per policy Notes Mental Status: alert / awake / arousable and participated in evaluation Patient Amnestic to Procedure: Yes Nausea / Vomiting: adequately controlled Pain: adequately controlled Airway Patency, RR, SpO2: stable & adequate BP & HR: stable & adequate Hydration State: stable & adequate Anesthetic Complications: no major complications apparent
--- NOTE | 2020-03-05 23:09 | Anesthesiology Progress Note ---
Date of Service March 05, 2020 Anesthesia Post Procedure Vital Signs Vital Signs: Temp Pulse Pulse Pulse Resp BP BP 03/05/20 23:05 37.5 C 85 17 142/92 H 03/05/20 22:55 90 19 156/103 H 03/05/20 22:49 37.5 C 86 19 135/83 03/05/20 21:12 91 H 03/05/20 15:54 37.1 C 78 17 03/05/20 06:58 36.8 C 95 H 22 03/05/20 06:35 37.0 C 03/05/20 06:30 92 H 19 143/79 H 03/05/20 06:00 91 H 20 134/86 03/05/20 05:31 95 H 20 133/60 03/05/20 05:00 92 H 21 125/76 03/05/20 04:35 93 H 20 134/74 03/05/20 03:34 20 119/92 03/05/20 02:00 96 H 26 H 165/111 H 03/05/20 01:30 93 H 19 182/109 H 03/05/20 01:00 90 19 152/90 H 03/05/20 00:41 91 H 21 130/91 BP Pulse Ox 03/05/20 23:05 98 03/05/20 22:55 98 03/05/20 22:49 99 03/05/20 21:12 135/85 03/05/20 15:54 123/82 96 03/05/20 06:58 149/90 H 95 03/05/20 06:35 03/05/20 06:30 93 03/05/20 06:00 93 03/05/20 05:31 94 03/05/20 05:00 91 03/05/20 04:35 94 03/05/20 03:34 94 03/05/20 02:00 94 03/05/20 01:30 95 03/05/20 01:00 94 03/05/20 00:41 94 Transfer of Care Handoff Completed per policy Notes Mental Status: alert / awake / arousable and participated in evaluation Patient Amnestic to Procedure: Yes Nausea / Vomiting: adequately controlled Pain: adequately controlled Airway Patency, RR, SpO2: stable & adequate BP & HR: stable & adequate Hydration State: stable & adequate Anesthetic Complications: no major complications apparent
[2020-03-06] MEDS ORDERED: INSULIN ASPART 100 UNITS/ML 3 ML PEN SC SCH (04:00)
--- NOTE | 2020-03-06 04:34 | Electrocardiogram Report ---
Test Reason : Blood Pressure : / mmHG Vent. Rate : 091 BPM Atrial Rate : 091 BPM P-R Int : 150 ms QRS Dur : 088 ms QT Int : 364 ms P-R-T Axes : 070 -44 069 degrees QTc Int : 447 ms Sinus rhythm with occasional Premature ventricular complexes Left axis deviation Inferior infarct , age undetermined Abnormal ECG When compared with ECG of 28-MAY-2019 11:43, Premature ventricular complexes are now Present Inferior infarct is now Present Confirmed by Lanre Katz ([id number]) on 03/06/2020 4:34:35 AM Referred By: REFERRED SELF Confirmed By:Lanre Katz
[2020-03-06 06:25] LABS: Basophils # (auto) 0.01 K/uL (0-0.2); Basophils % (auto) 0.1 %; Eosinophils # (auto) 0.11 K/uL (0-0.5); Eosinophils % (auto) 1.4 %; Hematocrit (blood only) 37.6 % (42-52); Hemoglobin 11.7 g/dL (14.0-18.0); Immature Granulocytes # (auto) 0.05 K/uL (0.00-0.02); Immature Granulocytes % (auto) 0.6 %; Lymphocytes % (auto) 10.1 %; Mean Corpuscular Hemoglobin 27.5 pg (25-34); Mean Corpuscular Hgb Conc 31.1 g/dL (32-36); Mean Corpuscular Volume 88.3 fL (80-100); Mean Platelet Volume 9.4 fL (7.4-10.4); Monocytes # (auto) 0.81 K/uL (0.11-0.59); Monocytes % (auto) 10.2 %; Neutrophils # (auto) 6.18 K/uL (1.4-6.5); Neutrophils % (auto) 77.6 %; Platelet Count 140 K/uL (130-400); RDW Coefficient of Variation 16.2 % (11.5-14.5); RDW Standard Deviation 51.9 fL (36.4-46.3); Red Blood Count 4.26 M/uL (4.7-6.1); White Blood Count 7.96 K/uL (4.8-10.8)
[2020-03-06 06:54] LABS: BUN Creatinine Ratio 8.5 (10-20); Calcium 8.6 mg/dl (8.5-10.1); Est GFR (African American) 24.7; Est GFR (Non-African American) 21.3; Potassium 3.8 mmol/L (3.5-5.1)
--- NOTE | 2020-03-06 07:21 | Fluoroscopy Report ---
FL retrograde includes kub CLINICAL HISTORY: CYSTO COMPARISON STUDY: None FLUOROSCOPY TIME: 1 minute 19 seconds NUMBER OF FLUOROSCOPIC IMAGES: 5 FINDINGS: Image intensifier support for left-sided retrograde evaluation and stent placement IMPRESSION: Image intensifier support for left-sided retrograde evaluation and stent placement. ACT 112: Negative or not required by law. The above report was generated using voice recognition software. It may contain grammatical, syntax or spelling errors. Electronically signed by: Francisco Saez M.D. 03/06/2020 7:20 AM
--- NOTE | 2020-03-06 07:48 | Anesthesiology Progress Note ---
Date of Service March 06, 2020 Anesthesia Post Procedure Vital Signs Vital Signs: Temp Pulse Pulse Pulse Resp BP BP 03/06/20 04:30 37.0 C 75 18 156/91 H 03/06/20 02:26 37.0 C 79 18 138/84 03/06/20 01:12 36.7 C 85 20 150/91 H 03/06/20 00:16 36.9 C 84 18 138/85 03/05/20 23:52 36.9 C 83 18 132/94 03/05/20 23:16 37.1 C 83 18 142/87 H 03/05/20 23:05 37.5 C 85 17 142/92 H 03/05/20 22:55 90 19 156/103 H 03/05/20 22:49 37.5 C 86 19 135/83 03/05/20 21:12 91 H 135/85 03/05/20 15:54 37.1 C 78 17 123/82 Pulse Ox 03/06/20 04:30 98 03/06/20 02:26 93 03/06/20 01:12 96 03/06/20 00:16 100 03/05/20 23:52 99 03/05/20 23:16 99 03/05/20 23:05 98 03/05/20 22:55 98 03/05/20 22:49 99 03/05/20 21:12 03/05/20 15:54 96 Notes Mental Status: alert / awake / arousable and participated in evaluation Patient Amnestic to Procedure: Yes Nausea / Vomiting: adequately controlled Pain: adequately controlled Airway Patency, RR, SpO2: stable & adequate BP & HR: stable & adequate Hydration State: stable & adequate Anesthetic Complications: no major complications apparent
[2020-03-06] MEDS: ACETAMINOPHEN 325 MG TAB PO PRN ×2 (09:10→14:28)
[2020-03-06] MEDS: FLUTICASONE/VILANTEROL 100/25MCG 14 PUFFS/INHALER INH SCH (09:12)
[2020-03-06] MEDS: FINASTERIDE 5 MG TAB PO SCH (09:17)
[2020-03-06] MEDS: BuPROPion SR 150 MG TABCR PO SCH ×2 (09:17→20:29)
[2020-03-06] MEDS: ROSUVASTATIN CALCIUM 20 MG TAB PO SCH (09:17)
[2020-03-06] MEDS: METOPROLOL TARTRATE 100 MG TAB PO SCH ×2 (09:17→20:29)
[2020-03-06] MEDS: INSULIN GLARGINE SOLOSTAR 100 UNITS/ML 3 ML PEN SC SCH (09:19)
[2020-03-06] MEDS: INSULIN ASPART 100 UNITS/ML 3 ML PEN SC SCH ×4 (09:21→21:55)
--- NOTE | 2020-03-06 09:31 | Nephrology Progress Note ---
Date of Service March 06, 2020 Assessment & Plan (1) Acute kidney injury: * EDILMA related to L ureteral obstruction by kidney stone. Patient is s/p cystoscopy and evacuation of debris/bladder stones, L retrograde pyelogram and ureteroscopy w/ dilation of ureter and ureteral stent insertion by Dr. Gong 03/05/20 * Cr improved from 3.3 to 2.9. Volume status and electrolyte balance acceptable at this time. UO ~ 550 cc last 24 hours * Monitor PRP * Jarquin management as per Urology (2) Chronic kidney disease: * Diabetic nephropathy. Baseline Cr 2.3 - 2.5 depending upon volume status (3) Kidney stone on left side: * Abd CT 03/05/20: L hydronephrosis due to ureteral stone * L ureteral stent was placed 03/05/20. Stones have been sent for chemical analysis * Agree w/ empiric Ceftriaxone therapy. No dose adjustment needed for EDILMA/CKD * No clinical signs of active infection. Await blood and urine cx results Admission and Anticipated Discharge Date Admission Date: March 06, 2020 Subjective Mr. Stephenson was seen & examined in his hospital room this morning. He underwent cystoscopy and evacuation of debris/bladder stones, L retrograde pyelogram and ureteroscopy w/ dilation of ureter and ureteral stent insertion by Dr. Gong yesterday. Mr. Stephenson currently denies fever, flank pain or gross hematuria. Review of Systems Constitutional: + weakness; no fever Eyes: no problem reported Ear, Nose, Mouth, Throat: no problem reported Respiratory: no cough and no dyspnea Cardiovascular: no chest pain and no edema Gastrointestinal: no abdominal pain, no nausea, no vomiting and no diarrhea/loose stools Genitourinary: no hematuria Musculoskeletal: no back pain Integumentary: no rash Neurologic: no confusion Physical Exam Constitutional: + obese Eyes: PERRL, conjunctivae normal, anicteric sclerae ENMT: external ear and nose normal, oropharynx normal Neck: trachea midline, no thyromegaly Respiratory: normal respiratory effort, lungs clear to auscultation Cardiovascular: Rate/Rhythm: regular rate and regular rhythm Extremities: + edema (trace LE edema) Gastrointestinal (Abdomen): normal bowel sounds, soft, nontender, no hepatosplenomegaly Musculoskeletal: Extremities: no cyanosis Skin: no rashes, warm and dry Neurologic: awake; not confused Genitourinary: Jarquin catheter in place draining clear yellow urine Results & Data ([facility]) Vital Signs (Past 12 Hours) Vital Signs Temp Pulse Pulse Resp BP Pulse Ox 03/06/20 08:00 36.8 C 74 16 142/84 H 99 03/06/20 04:30 37.0 C 75 18 156/91 H 98 03/06/20 02:26 37.0 C 79 18 138/84 93 03/06/20 01:12 36.7 C 85 20 150/91 H 96 03/06/20 00:16 36.9 C 84 18 138/85 100 03/05/20 23:52 36.9 C 83 18 132/94 99 03/05/20 23:16 37.1 C 83 18 142/87 H 99 03/05/20 23:05 37.5 C 85 17 142/92 H 98 03/05/20 22:55 90 19 156/103 H 98 03/05/20 22:49 37.5 C 86 19 135/83 99 Laboratory Results Laboratory Tests 03/06/20 03/06/20 06:00 06:00 WBC 7.96 Hgb 11.7 L Hct 37.6 L Plt Count 140 Sodium 145 Potassium 3.8 Chloride 113 H Carbon Dioxide 26 BUN 25 H Creatinine 2.91 H Glucose 137 H PG Care Time/CCT Total # of Minutes Spent Total Time Spent with Patient: Total time spent is greater than 50% in coordination of care (as documented) at patient's floor/unit and/or counseling patient: Coding Level of Care Code 21954 Subseq Hosp Care Lvl 3 Diagnoses Acute kidney injury N17.9 Chronic kidney disease N18.9 Kidney stone on left side N20.0
--- NOTE | 2020-03-06 09:50 | Urology Progress Note ---
Date of Service March 06, 2020 Assessment & Plan (1) Kidney stone on left side: Status post emergent ureteral stent placement yesterday His creatinine is slightly improved today Subjectively feeling relatively well aside from expected stent discomfort Cultures pending We will arrange for outpatient follow-up for definitive stone treatment Please contact us if there are further issues during this hospitalization Subjective Status post cystoscopy and left ureteral stent placement yesterday He feels well overall today aside from some dysuria No fevers or chills Pain is substantially better than it was upon arrival Physical Exam Constitutional: well developed and well nourished Respiratory: no respiratory distress Cardiovascular: Extremities: no pedal edema Gastrointestinal (Abdomen): Inspection/Auscultation: abdomen normal to inspection Results & Data Vital Signs (Past 12 Hours) Vital Signs Temp Pulse Pulse Resp BP Pulse Ox 03/06/20 08:00 36.8 C 74 16 142/84 H 99 03/06/20 04:30 37.0 C 75 18 156/91 H 98 03/06/20 02:26 37.0 C 79 18 138/84 93 03/06/20 01:12 36.7 C 85 20 150/91 H 96 03/06/20 00:16 36.9 C 84 18 138/85 100 03/05/20 23:52 36.9 C 83 18 132/94 99 03/05/20 23:16 37.1 C 83 18 142/87 H 99 03/05/20 23:05 37.5 C 85 17 142/92 H 98 03/05/20 22:55 90 19 156/103 H 98 03/05/20 22:49 37.5 C 86 19 135/83 99 PG Care Time/CCT Total # of Minutes Spent Total Time Spent with Patient: Total time spent is greater than 50% in coordination of care (as documented) at patient's floor/unit and/or counseling patient: Coding Level of Care Code 68617 Subseq Hosp Care Lvl 2 Diagnoses Kidney stone on left side N20.0
[2020-03-06] MEDS: cefTRIAXone SODIUM 2,000 MG in DEXTROSE 5% 50 ML IV SCH (10:32)
[2020-03-06] MEDS ORDERED: TRAMADOL HCL 50 MG TABLET PO PRN ×2 (10:55→18:00)
--- NOTE | 2020-03-06 12:34 | Pharmacy Report ---
Pharmacy Glycemic Short Note 2 - Date of Service March 06, 2020 - Glycemic Short BSG Results (Last 24 hours): 03/05/20 03/05/20 03/05/20 15:32 17:49 21:10 Glucose 195 H POC Glucose 196 H 159 H 03/05/20 03/06/20 03/06/20 23:05 04:07 06:00 Glucose 137 H POC Glucose 158 H 130 H 03/06/20 03/06/20 08:07 12:22 Glucose POC Glucose 127 H 189 H ASSESSMENT: 03/06 * Patient received total of 14 units of insulin yesterday, all correctional insulin * Now POD 1 of ureteral stent placement. Continues on diet this AM * Fasting BSG 127 mg/dL - will hold basal insulin / add scale for basal at HS as patient on multiple oral agents at home so insulin requirements will likely increase with diet ordered * Continue same CF/CR for now PLAN FOR INPATIENT GLYCEMIC CONTROL: * Holding outpatient oral diabetes medications * Basal insulin * Lantus scale (0-15 units) - see EHR for details * Will be conservative and only give basal if BSG is > 160 mg/dL * Bolus insulin * NovoLog per scale ACHS or Q6hrs while NPO * Goal Range: Low 110 mg/dL - High 140 mg/dL * Correction Factor: 25 mg/dL/unit * Nutritional / Prandial insulin per carb ratio of 1 unit per 8 grams CHO consumed * Overnight check at 0400 with same parameters PLAN FOR DISCHARGE: * tbd
--- NOTE | 2020-03-06 14:07 | Hospitalist Progress Note ---
Date of Service March 06, 2020 Assessment & Plan (1) Ureteral stone: s/p cystoscopy wtih evacuation of debris/bladder stones and stent placement With left hydronephrosis. History of calculus and left hydronephrosis CT abd/pelvis showing 7 mm proximal left ureteral calculus. Tramadol added for pain post op UA appeared infected but urine is growing only staph and patient's urinary tract is apparently coag negative staph colonized given past urine cultures. Will continue ceftriaxone to cover instrumentation yesterday. Will also check a CRP in the morning Consulted urology (2) Lower extremity weakness: Likely combination of neuropathy and acute illness MRI spine showing: mild multilevel spondylitic changes, no evidence of high- grade spinal stenosis PT/OT (3) Peripheral neuropathy: Patient with distal neuropathy of bilateral LE, history of the same thought to be secondary to diabetes. Acute worsening over the last 1-2 weeks to the point that he is unable to ambulate and his is unable to care for him. -B12 wnl, rpr non reactive -Consider Gabapentin when renal function improves although patient had taken this in the past without much improvement (4) Diabetes mellitus: Elevated blood sugar, [id number]=2.9 -Hold oral agents -Continue Lantus 10u BID with ISS, pharmacy glycemic consult -Goal blood sugar 100 - 140 (5) COPD (chronic obstructive pulmonary disease): Stable respiratory status -O2 as needed -Continue Breo -Continue DuoNeb PRN (6) Depression: Chronic. Well controlled -Continue Bupropion (7) Hypertension: Blood pressure stable -Hold HCTZ, hold Lasix -Continue Metoprolol (8) CAD (coronary artery disease): Stable. No angina -Continue ASA, held Plavix for procedure and will resume tomorrow, Metoprolol, Rosuvastatin (9) Obstructive sleep apnea of adult: Patient does not wear CPAP -Supplemental O2 as needed (10) Dyslipidemia: Chronic. Stable -Continue Crestor (11) DVT prophylaxis: heparin Admission and Anticipated Discharge Date Admission Date: March 06, 2020 Supervising Physician Co-Signing Physician Notes I personally examined the patient and verified all dooley points of history and exam, discussed case, and agree with decision making with Teresa KITCHEN. ongoing fairly severe pain - meds not really helping enough. no f/c/s. vitals noted, uncomfortable appearing - comes in waves. breathing unlabored no accessory muscles good effort skin no rashes no pallor or icterus neuro no focal deficits ureteral stone - post op. pain control still needs improved - schedule tylenol, oxycodone prn pain, IV morphine prn severe pain doubt urine culture represents true infection given lack of sepsis and gram positive findings. ceftriaxone for periop, but can dc if no other s/s infection develop over next few days. Subjective Mr. Stephenson is experiencing quite a lot of pain in his urethra/urinary tract today, somewhat colicky in nature. No hematuria but he does have debris mixed in with his urine ROS Constitutional: no chills, aches, sweats or fever Respiratory: no sob,cough, sputum, or wheezing Cardiac: no chest pain, palpitations, edema, orthopnea or lightheadedness GI: no abdominal pain, nausea, vomiting, diarrhea or constipation : see HPI Extremities: no joint pain or weakness Skin: no rash All other systems reviewed and negative Physical Exam Physical Exam: General: no distress Eyes: normal inspection, PERLL Respiratory: chest non tender, clear to auscultation, normal breath sounds, no respiratory distress, no accessory muscle use Cardiac: regular rate and rhythm, no rub or gallop, no murmur, no edema, no jvd GI/: active bowel sounds, no abd pain or tenderness, soft, non distended Extremities: normal range of motion, normal strength, non tender Neuro/Psych: alert and oriented x 3, normal mood and affect Skin: normal color, dry Results & Data Results & Data ([facility]) Vital Signs (Past 12 Hours) Vital Signs Temp Pulse Resp BP Pulse Ox 03/06/20 11:11 36.9 C 68 18 126/80 92 03/06/20 08:00 36.8 C 74 16 142/84 H 99 03/06/20 04:30 37.0 C 75 18 156/91 H 98 03/06/20 02:26 37.0 C 79 18 138/84 93 PG Care Time/CCT Total # of Minutes Spent Total Time Spent with Patient: Total time spent is greater than 50% in coordination of care (as documented) at patient's floor/unit and/or counseling patient: Coding Level of Care Code 72723 Subseq Hosp Care Lvl 3 Diagnoses Ureteral stone N20.1 Lower extremity weakness R29.898 Peripheral neuropathy G62.9 Peripheral neuropathy type: polyneuropathy, unspecified Diabetes mellitus E11.22; N18.4 Chronic kidney disease stage: stage 4 (severe) Diabetes mellitus complication detail: with chronic kidney disease Diabetes mellitus complication status: with kidney complications Diabetes mellitus ferry terminal supervisor insulin use: without ferry terminal supervisor use Diabetes mellitus type: type 2 COPD (chronic obstructive pulmonary disease) J43.9 COPD type: emphysema Emphysema type: unspecified Depression F32.9 Depression Type: unspecified Hypertension I10 Hypertension type: essential hypertension CAD (coronary artery disease) I25.10 Associated angina: without angina Coronary Disease-Associated Artery/Lesion type: [place] artery [place] vs. transplanted heart: [place] heart Obstructive sleep apnea of adult G47.33 Dyslipidemia E78.5 DVT prophylaxis Z29.9 (1) Diabetes mellitus Chronic kidney disease stage: stage 4 (severe) Diabetes mellitus complication detail: with chronic kidney disease Diabetes mellitus complication status: with kidney complications Diabetes mellitus ferry terminal supervisor insulin use: without ferry terminal supervisor use Diabetes mellitus type: type 2 Qualified Code(s): E11.22 - Type 2 diabetes mellitus with diabetic chronic kidney disease; N18.4 - Chronic kidney disease, stage 4 (severe) (2) CAD (coronary artery disease) Associated angina: without angina Coronary Disease-Associated Artery/Lesion type: [place] artery [place] vs. transplanted heart: [place] heart Qualified Code(s): I25.10 - Atherosclerotic heart disease of [place] coronary artery without angina pectoris (3) Depression Depression Type: unspecified Qualified Code(s): F32.9 - Major depressive disorder, single episode, unspecified (4) Peripheral neuropathy Peripheral neuropathy type: polyneuropathy, unspecified Qualified Code(s): G62.9 - Polyneuropathy, unspecified (5) COPD (chronic obstructive pulmonary disease) COPD type: emphysema Emphysema type: unspecified Qualified Code(s): J43.9 - Emphysema, unspecified (6) Hypertension Hypertension type: essential hypertension Qualified Code(s): I10 - Essential (primary) hypertension
[2020-03-06] MEDS ORDERED: HYDROCODONE/ACETAMOPHEN 5/325MG TAB PO PRN (15:46)
[2020-03-06] MEDS ORDERED: MoRPHine SULFATE 4 MG/ML 1 ML CARP\\VIAL IV PRN (17:26)
[2020-03-06] MEDS ORDERED: MoRPHine SULFATE 4 MG/ML 1 ML CARP\\VIAL IV STA (17:33)
[2020-03-06] MEDS: ACETAMINOPHEN 325 MG TAB PO SCH ×2 (18:23→21:59)
--- NOTE | 2020-03-06 18:27 | XCELERA ---
[id number]
[2020-03-06] MEDS: LATANOPROST 0.005% OP SOLN 2.5 ML BTL OPB SCH (20:30)
[2020-03-06] MEDS: ASPIRIN 81 MG ECTAB PO SCH (20:30)
[2020-03-06] MEDS ORDERED: INSULIN GLARGINE SOLOSTAR 100 UNITS/ML 3 ML PEN SC SCH (21:00)
[2020-03-06] MEDS: HEPARIN SOD 5,000 UNIT/0.5 ML VIAL SQ SCH (21:54)
[2020-03-06] MEDS: OXYCODONE HCL IR 5 MG TAB (IMMEDIATE RELEASE) PO PRN (23:42)
[2020-03-07] MEDS: OXYCODONE HCL IR 5 MG TAB (IMMEDIATE RELEASE) PO PRN (05:28)
[2020-03-07 06:20] LABS: Basophils # (auto) 0.04 K/uL (0-0.2); Basophils % (auto) 0.5 %; Eosinophils # (auto) 0.24 K/uL (0-0.5); Eosinophils % (auto) 3.3 %; Hematocrit (blood only) 37.9 % (42-52); Hemoglobin 11.6 g/dL (14.0-18.0); Immature Granulocytes # (auto) 0.05 K/uL (0.00-0.02); Immature Granulocytes % (auto) 0.7 %; Lymphocytes # (auto) 0.98 K/uL (1.2-3.4); Lymphocytes % (auto) 13.4 %; Mean Corpuscular Hemoglobin 27.7 pg (25-34); Mean Corpuscular Hgb Conc 30.6 g/dL (32-36); Mean Corpuscular Volume 90.5 fL (80-100); Monocytes # (auto) 0.72 K/uL (0.11-0.59); Monocytes % (auto) 9.8 %; Neutrophils # (auto) 5.28 K/uL (1.4-6.5); Neutrophils % (auto) 72.3 %; Platelet Count 161 K/uL (130-400); RDW Coefficient of Variation 16.3 % (11.5-14.5); RDW Standard Deviation 53.6 fL (36.4-46.3); Red Blood Count 4.19 M/uL (4.7-6.1); White Blood Count 7.31 K/uL (4.8-10.8)
[2020-03-07 07:00] LABS: BUN Creatinine Ratio 9.1 (10-20); C Reactive Protein 8.1 mg/dl (0-0.29); Calcium 8.6 mg/dl (8.5-10.1); Creatinine Clr Calc Pharmacy 36.1 ml/min; Est GFR (African American) 24.8; Est GFR (Non-African American) 21.4; Potassium 3.6 mmol/L (3.5-5.1)
[2020-03-07] MEDS: FINASTERIDE 5 MG TAB PO SCH (09:02)
[2020-03-07] MEDS: FLUTICASONE/VILANTEROL 100/25MCG 14 PUFFS/INHALER INH SCH (09:02)
[2020-03-07] MEDS: BuPROPion SR 150 MG TABCR PO SCH ×2 (09:02→20:25)
[2020-03-07] MEDS: CLOPIDOGREL BISULFATE 75 MG TAB PO SCH (09:03)
[2020-03-07] MEDS: ROSUVASTATIN CALCIUM 20 MG TAB PO SCH (09:03)
[2020-03-07] MEDS: POLYETHYLENE (MIRALAX) 17 GM PACK PO SCH (09:03)
[2020-03-07] MEDS: METOPROLOL TARTRATE 100 MG TAB PO SCH ×2 (09:03→20:32)
[2020-03-07] MEDS: ACETAMINOPHEN 325 MG TAB PO SCH ×3 (09:04→20:27)
[2020-03-07] MEDS: INSULIN ASPART 100 UNITS/ML 3 ML PEN SC SCH ×4 (09:05→20:39)
[2020-03-07] MEDS: HEPARIN SOD 5,000 UNIT/0.5 ML VIAL SQ SCH ×2 (09:06→20:38)
[2020-03-07] MEDS: INSULIN GLARGINE SOLOSTAR 100 UNITS/ML 3 ML PEN SC SCH (09:10)
--- NOTE | 2020-03-07 09:22 | Nephrology Progress Note ---
Date of Service March 07, 2020 Assessment & Plan (1) Acute kidney injury: * EDILMA related to L ureteral obstruction by kidney stone. Patient is s/p cystoscopy and evacuation of debris/bladder stones, L retrograde pyelogram and ureteroscopy w/ dilation of ureter and ureteral stent insertion by Dr. Gong 03/05/20 * Cr improved from 3.3 to 2.9. Volume status and electrolyte balance acceptable at this time. UO ~ 550 cc last 24 hours * Monitor PRP * Jarquin management as per Urology (2) Chronic kidney disease: * Diabetic nephropathy. Baseline Cr 2.3 - 2.5 depending upon volume status (3) Kidney stone on left side: * Abd CT 03/05/20: L hydronephrosis due to ureteral stone * L ureteral stent was placed 03/05/20. Stone chemical analysis is pending * No clinical signs of active infection. Urine cx positive for staph species. Final result is pending. Blood cx is negative at 48 hours * Continue Ceftriaxone therapy. Consider changing to oral narrow spectrum antibiotic pending final urine cx result (4) Peripheral neuropathy: * Physical therapy for strengthening Admission and Anticipated Discharge Date Admission Date: March 06, 2020 Subjective Mr. Stephenson was seen & examined in his hospital room this morning. He underwent cystoscopy and evacuation of debris/bladder stones, L retrograde pyelogram and ureteroscopy w/ dilation of ureter and ureteral stent insertion by Dr. Gong 03/05/20. Mr. Stephenson currently denies fever, flank pain or gross hematuria. He still has significant peripheral neuropathy that limits his ability to ambulate. Review of Systems Constitutional: + weakness; no fever Eyes: no problem reported Ear, Nose, Mouth, Throat: no problem reported Respiratory: no cough and no dyspnea Cardiovascular: no chest pain, no palpitations and no edema Gastrointestinal: no abdominal pain, no nausea, no vomiting and no diarrhea/loose stools Genitourinary: no dysuria, no urinary hesitancy and no hematuria Musculoskeletal: no back pain Integumentary: no rash Neurologic: no falls, no dizziness and no confusion Physical Exam Constitutional: + obese Eyes: PERRL, conjunctivae normal, anicteric sclerae ENMT: external ear and nose normal, oropharynx normal Neck: trachea midline, no thyromegaly Respiratory: normal respiratory effort, lungs clear to auscultation Cardiovascular: Rate/Rhythm: regular rate and regular rhythm Extremities: + edema (trace LE edema) Gastrointestinal (Abdomen): normal bowel sounds, soft, nontender, no hepatosplenomegaly Musculoskeletal: Extremities: no cyanosis Skin: no rashes, warm and dry Neurologic: awake; not confused Results & Data ([facility]) Vital Signs (Past 12 Hours) Vital Signs Temp Pulse Resp BP Pulse Ox 03/07/20 06:44 36.7 C 70 18 129/83 94 03/06/20 23:06 36.8 C 72 16 101/64 96 Laboratory Results Microbiology 03/05/20 01:50 Urine,Clean Catch Urine Culture - Preliminary Staphylococcus species Laboratory Tests 03/05/20 03/07/20 03/07/20 19:45 05:42 05:42 WBC 7.31 Hgb 11.6 L Hct 37.9 L Plt Count 161 Sodium 144 Potassium 3.6 Chloride 113 H BUN 26 H Creatinine 2.90 H Glucose 130 H Stone Composition Pending PG Care Time/CCT Total # of Minutes Spent Total Time Spent with Patient: Total time spent is greater than 50% in coordination of care (as documented) at patient's floor/unit and/or counseling patient: Coding Level of Care Code 20272 Subseq Hosp Care Lvl 3 Diagnoses Acute kidney injury N17.9 Chronic kidney disease N18.9 Kidney stone on left side N20.0 Peripheral neuropathy G62.9 Peripheral neuropathy type: polyneuropathy, unspecified (1) Peripheral neuropathy Peripheral neuropathy type: polyneuropathy, unspecified Qualified Code(s): G62.9 - Polyneuropathy, unspecified
[2020-03-07] MEDS: cefTRIAXone SODIUM 2,000 MG in DEXTROSE 5% 50 ML IV SCH (11:07)
[2020-03-07] MEDS: CYANOCOBALAMIN 500 MCG TABLET (VITAMIN B-12) PO SCH (11:08)
--- NOTE | 2020-03-07 14:28 | Hospitalist Progress Note ---
Date of Service March 07, 2020 Assessment & Plan (1) Ureteral stone: s/p cystoscopy wtih evacuation of debris/bladder stones and stent placement With left hydronephrosis. History of calculus and left hydronephrosis CT abd/pelvis showing 7 mm proximal left ureteral calculus. Pain control, patient with less pain today UA appeared infected but urine is growing only staph and patient's urinary tract is apparently coag negative staph colonized given past urine cultures. Per urology, 7 days of cipro Patient still having quite a lot of pain in his urinary tract. Will start ditropan 5mg IR prn tid per uro rec. Consulted urology (2) Lower extremity weakness: Likely combination of neuropathy and acute illness MRI spine showing: mild multilevel spondylitic changes, no evidence of high- grade spinal stenosis PT/OT (3) Peripheral neuropathy: Patient with distal neuropathy of bilateral LE, history of the same thought to be secondary to diabetes. Acute worsening over the last 1-2 weeks to the point that he is unable to ambulate and his is unable to care for him. -B12 slightly low - started supplementation, rpr non reactive -Consider Gabapentin when renal function improves although patient had taken this in the past without much improvement (4) Diabetes mellitus: Elevated blood sugar, [id number]=5.9 -Hold oral agents inpatient and resume on discharge -Continue Lantus 10u BID with ISS, pharmacy glycemic consult -Goal blood sugar 100 - 140 (5) COPD (chronic obstructive pulmonary disease): Stable respiratory status -O2 as needed -Continue Breo (6) Depression: Chronic. Well controlled -Continue Bupropion (7) Hypertension: Blood pressure stable -Hold HCTZ, hold Lasix until renal function back to baseline -Continue Metoprolol (8) CAD (coronary artery disease): Stable. No angina -Continue ASA, Plavix, Metoprolol, Rosuvastatin (9) Obstructive sleep apnea of adult: Patient does not wear CPAP -Supplemental O2 as needed (10) Dyslipidemia: Chronic. Stable -Continue Crestor (11) Pericardial effusion: Seen on CT, followed up with limited echo which showed the same. Likely secondary to renal failure. Recommend follow up echo in the next couple of months to ensure that it is not worsening. (12) Chronic kidney disease: With EDILMA Baseline creat around 2.7, was 3.3 on admission, now 2.9. Electrolytes, bicarb wnl. Will check again this afternoon as patient has had low urine output today -Continue IVF with NSS at 80mL/hr -Consulted nephrology - recommend follow up with Dr. Man in 1-2 weeks - will have patient recheck prp in a week (13) DVT prophylaxis: heparin Dispo: attempt better pain control today and hopefully can discharge tomorrow Admission and Anticipated Discharge Date Admission Date: March 06, 2020 Supervising Physician Co-Signing Physician Notes I personally examined the patient and verified all dooley points of history and exam, discussed case, and agree with decision making with Teresa KITCHEN. ongoing fairly severe pain - off and on. feels that it comes from [place]. vitals noted, uncomfortable appearing - comes in waves. breathing unlabored no accessory muscles good effort skin no rashes no pallor or icterus neuro no focal deficits ureteral stone - post op. pain control still needs improved - in addition to changes added yesterday, urology suggests addition of ditropan, feels that likely would have worse problems if [place] removed. Subjective Mr. Stephenson's pain was much improved this morning but he is having quite a lot of urinary tract pain this afternoon. ROS Constitutional: no chills, aches, sweats or fever Respiratory: no sob,cough, sputum, or wheezing Cardiac: no chest pain, palpitations, edema, orthopnea or lightheadedness GI: no abdominal pain, nausea, vomiting, diarrhea or constipation : no dysuria or hesitancy Extremities: no joint pain or weakness Skin: no rash All other systems reviewed and negative Physical Exam Physical Exam: General: no distress Eyes: normal inspection, PERLL Respiratory: chest non tender, clear to auscultation, normal breath sounds, no respiratory distress, no accessory muscle use Cardiac: regular rate and rhythm, no rub or gallop, no murmur, no edema, no jvd GI/: active bowel sounds, no abd pain or tenderness, soft, non distended Extremities: normal range of motion, normal strength, non tender Neuro/Psych: alert and oriented x 3, normal mood and affect Skin: normal color, dry Results & Data Results & Data ([facility]) Vital Signs (Past 12 Hours) Vital Signs Temp Pulse Resp BP Pulse Ox 03/07/20 06:44 36.7 C 70 18 129/83 94 PG Care Time/CCT Total # of Minutes Spent Total Time Spent with Patient: Total time spent is greater than 50% in coordination of care (as documented) at patient's floor/unit and/or counseling patient: Coding Level of Care Code 62847 Subseq Hosp Care Lvl 3 Diagnoses Ureteral stone N20.1 Lower extremity weakness R29.898 Peripheral neuropathy G62.9 Peripheral neuropathy type: polyneuropathy, unspecified Diabetes mellitus E11.22; N18.4 Chronic kidney disease stage: stage 4 (severe) Diabetes mellitus complication detail: with chronic kidney disease Diabetes mellitus complication status: with kidney complications Diabetes mellitus jail insulin use: without jail use Diabetes mellitus type: type 2 COPD (chronic obstructive pulmonary disease) J43.9 COPD type: emphysema Emphysema type: unspecified Depression F32.9 Depression Type: unspecified Hypertension I10 Hypertension type: essential hypertension CAD (coronary artery disease) I25.10 Associated angina: without angina Coronary Disease-Associated Artery/Lesion type: [place] artery [place] vs. transplanted heart: [place] heart Obstructive sleep apnea of adult G47.33 Dyslipidemia E78.5 Pericardial effusion I31.3 Chronic kidney disease N18.9 DVT prophylaxis Z29.9 (1) Diabetes mellitus Chronic kidney disease stage: stage 4 (severe) Diabetes mellitus complication detail: with chronic kidney disease Diabetes mellitus complication status: with kidney complications Diabetes mellitus long term care social worker insulin use: without jail use Diabetes mellitus type: type 2 Qualified Code(s): E11.22 - Type 2 diabetes mellitus with diabetic chronic kidney disease; N18.4 - Chronic kidney disease, stage 4 (severe) (2) CAD (coronary artery disease) Associated angina: without angina Coronary Disease-Associated Artery/Lesion type: [place] artery [place] vs. transplanted heart: [place] heart Qualified Code(s): I25.10 - Atherosclerotic heart disease of [place] coronary artery without angina pectoris (3) Depression Depression Type: unspecified Qualified Code(s): F32.9 - Major depressive disorder, single episode, unspecified (4) Peripheral neuropathy Peripheral neuropathy type: polyneuropathy, unspecified Qualified Code(s): G62.9 - Polyneuropathy, unspecified (5) COPD (chronic obstructive pulmonary disease) COPD type: emphysema Emphysema type: unspecified Qualified Code(s): J43.9 - Emphysema, unspecified (6) Hypertension Hypertension type: essential hypertension Qualified Code(s): I10 - Essential (primary) hypertension
--- NOTE | 2020-03-07 15:28 | Pharmacy Report ---
Pharmacy Glycemic Short Note 2 - Date of Service March 07, 2020 - Glycemic Short BSG Results (Last 24 hours): 03/06/20 03/06/20 03/07/20 17:08 21:14 05:42 Glucose 130 H POC Glucose 196 H 148 H 03/07/20 03/07/20 08:20 12:04 Glucose POC Glucose 138 H 219 H ASSESSMENT: 03/07/20 * POD 2 ureteral stent placement, IV ceftriaxone changed to PO cipro x 7 days per urology. * Patient received 14 units of insulin yesterday, all correctional and prandial, will try redistributing some of the insulin today to give basal and hopefully less correctional * Will also tighten CR as blood sugar rising with meals 03/06 * Patient received total of 14 units of insulin yesterday, all correctional insulin * Now POD 1 of ureteral stent placement. Continues on diet this AM * Fasting BSG 127 mg/dL - will hold basal insulin / add scale for basal at HS as patient on multiple oral agents at home so insulin requirements will likely increase with diet ordered * Continue same CF/CR for now PLAN FOR INPATIENT GLYCEMIC CONTROL: * Holding outpatient oral diabetes medications * Basal insulin * Lantus 6 units SQ daily, hold for BSG < 100mg/dl * Bolus insulin * NovoLog per scale ACHS or Q6hrs while NPO * Goal Range: Low 110 mg/dL - High 140 mg/dL * Correction Factor: 25 mg/dL/unit * TIGHTEN: Nutritional / Prandial insulin per carb ratio of 1 unit per 7 grams CHO consumed PLAN FOR DISCHARGE: * tbd
[2020-03-07] MEDS ORDERED: OXYBUTYNIN CHLORIDE 5 MG TAB PO STA (15:29)
[2020-03-07] MEDS ORDERED: OXYBUTYNIN CHLORIDE 5 MG TAB PO PRN (15:29)
[2020-03-07] MEDS: ASPIRIN 81 MG ECTAB PO SCH (20:26)
[2020-03-07] MEDS: CIPROFLOXACIN 500 MG TAB PO SCH (20:34)
[2020-03-07] MEDS: LATANOPROST 0.005% OP SOLN 2.5 ML BTL OPB SCH (20:35)
[2020-03-07] MEDS: OXYBUTYNIN CHLORIDE 5 MG TAB PO SCH (21:38)
[2020-03-08] MEDS: OXYCODONE HCL IR 5 MG TAB (IMMEDIATE RELEASE) PO PRN (03:57)
[2020-03-08 05:36] LABS: Hematocrit (blood only) 37.4 % (42-52); Hemoglobin 11.6 g/dL (14.0-18.0); Mean Corpuscular Volume 90.1 fL (80-100); Mean Platelet Volume 9.8 fL (7.4-10.4); Nucleated RBC # (auto) 0.03 K/uL (0-0); Nucleated RBC % (auto) 0.4 %; Platelet Count 172 K/uL (130-400); RDW Coefficient of Variation 16.2 % (11.5-14.5); RDW Standard Deviation 53.3 fL (36.4-46.3); Red Blood Count 4.15 M/uL (4.7-6.1); White Blood Count 6.54 K/uL (4.8-10.8)
[2020-03-08 06:10] LABS: BUN Creatinine Ratio 9.1 (10-20); Calcium 8.8 mg/dl (8.5-10.1); Creatinine Clr Calc Pharmacy 37.8 ml/min; Est GFR (African American) 26.2; Est GFR (Non-African American) 22.6; Potassium 3.5 mmol/L (3.5-5.1)
[2020-03-08] MEDS: FLUTICASONE/VILANTEROL 100/25MCG 14 PUFFS/INHALER INH SCH (08:17)
[2020-03-08] MEDS: INSULIN GLARGINE SOLOSTAR 100 UNITS/ML 3 ML PEN SC SCH (09:12)
[2020-03-08] MEDS: HEPARIN SOD 5,000 UNIT/0.5 ML VIAL SQ SCH ×2 (09:14→20:35)
[2020-03-08] MEDS: INSULIN ASPART 100 UNITS/ML 3 ML PEN SC SCH ×4 (09:14→20:34)
[2020-03-08] MEDS: ACETAMINOPHEN 325 MG TAB PO SCH ×3 (09:44→20:38)
[2020-03-08] MEDS: BuPROPion SR 150 MG TABCR PO SCH ×2 (09:44→20:40)
[2020-03-08] MEDS: CIPROFLOXACIN 500 MG TAB PO SCH ×2 (09:44→20:40)
[2020-03-08] MEDS: METOPROLOL TARTRATE 100 MG TAB PO SCH ×2 (09:44→20:42)
[2020-03-08] MEDS: ROSUVASTATIN CALCIUM 20 MG TAB PO SCH (09:45)
[2020-03-08] MEDS: CLOPIDOGREL BISULFATE 75 MG TAB PO SCH (09:45)
[2020-03-08] MEDS: CYANOCOBALAMIN 500 MCG TABLET (VITAMIN B-12) PO SCH (09:45)
[2020-03-08] MEDS: FINASTERIDE 5 MG TAB PO SCH (09:45)
[2020-03-08] MEDS: OXYBUTYNIN CHLORIDE 5 MG TAB PO SCH ×2 (09:45→13:09)
--- NOTE | 2020-03-08 10:05 | Nephrology Progress Note ---
Date of Service March 08, 2020 Assessment & Plan (1) Acute kidney injury: * EDILMA related to L ureteral obstruction by kidney stone. Patient is s/p cystoscopy and evacuation of debris/bladder stones, L retrograde pyelogram and ureteroscopy w/ dilation of ureter and ureteral stent insertion by Dr. Gong 03/05/20 * Cr improved from 3.3 to 2.7. Volume status and electrolyte balance acceptable at this time. UO ~ 1275 cc last 24 hours. I&O's are essentially matched * Jarquin management as per Urology * Patient is nearing baseline kidney function. No further Nephrology evaluation indicated at this time. Will sign off. Please have patient follow up w/ Dr. Man ([phone]) 1 - 2 weeks following discharge from hospital/physical therapy (2) Chronic kidney disease: * Diabetic nephropathy. Baseline Cr 2.3 - 2.5 depending upon volume status (3) Kidney stone on left side: * Abd CT 03/05/20: L hydronephrosis due to ureteral stone * L ureteral stent was placed 03/05/20. Stone chemical analysis is pending * No clinical signs of active infection. Urine cx positive for coag negative staph resistant to oxacillin, sensitive to tetracycline * Consider changing from ceftriaxone to tetracycline therapy * Patient having significant discomfort from ureteral stent. Consider discussion w/ Urology re: lithotripsy and stent removal (4) Peripheral neuropathy: * Physical therapy for strengthening Admission and Anticipated Discharge Date Admission Date: March 06, 2020 Subjective Mr. Stephenson was seen & examined in his hospital room this morning. He underwent cystoscopy and evacuation of debris/bladder stones, L retrograde p yelogram and ureteroscopy w/ dilation of ureter and ureteral stent insertion by Dr. Gong 03/05/20. Mr. Stephenson currently denies fever, flank pain or gross hematuria. He does have significant discomfort from his ureteral stent. Mr. Stephenson also c/o significant peripheral neuropathy that limits his ability to ambulate. Review of Systems Constitutional: + weakness; no fever Eyes: no problem reported Ear, Nose, Mouth, Throat: no problem reported Respiratory: no cough and no dyspnea Cardiovascular: no chest pain, no palpitations and no edema Gastrointestinal: + abdominal pain; no nausea, no vomiting and no diarrhea/loose stools Genitourinary: + dysuria; no urinary hesitancy and no hematuria Musculoskeletal: + back pain Integumentary: no rash Neurologic: no falls, no dizziness and no confusion Physical Exam Constitutional: + obese Eyes: PERRL, conjunctivae normal, anicteric sclerae ENMT: external ear and nose normal, oropharynx normal Neck: trachea midline, no thyromegaly Respiratory: normal respiratory effort, lungs clear to auscultation Cardiovascular: Rate/Rhythm: regular rate and regular rhythm Extremities: + edema (trace LE edema) Gastrointestinal (Abdomen): normal bowel sounds, soft, nontender, no hepatosplenomegaly Musculoskeletal: Extremities: no cyanosis Skin: no rashes, warm and dry Neurologic: awake; not confused Results & Data ([facility]) Vital Signs (Past 12 Hours) Vital Signs Temp Pulse Resp BP Pulse Ox 03/08/20 07:00 37.2 C 77 20 155/92 H 96 03/07/20 22:57 36.9 C 76 18 157/93 H 92 Laboratory Results Laboratory Tests 03/08/20 03/08/20 04:53 04:53 WBC 6.54 Hgb 11.6 L Hct 37.4 L Plt Count 172 Sodium 145 Potassium 3.5 Chloride 114 H Carbon Dioxide 25 BUN 25 H Creatinine 2.77 H Glucose 143 H PG Care Time/CCT Total # of Minutes Spent Total Time Spent with Patient: Total time spent is greater than 50% in coordination of care (as documented) at patient's floor/unit and/or counseling patient: Coding Level of Care Code 91003 Subseq Hosp Care Lvl 3 Diagnoses Acute kidney injury N17.9 Chronic kidney disease N18.9 Kidney stone on left side N20.0 Peripheral neuropathy G62.9 Peripheral neuropathy type: polyneuropathy, unspecified (1) Peripheral neuropathy Peripheral neuropathy type: polyneuropathy, unspecified Qualified Code(s): G62.9 - Polyneuropathy, unspecified
--- NOTE | 2020-03-08 12:35 | Hospitalist Progress Note ---
Date of Service March 08, 2020 Assessment & Plan (1) Ureteral stone: s/p cystoscopy with evacuation of debris/bladder stones and stent placement With left hydronephrosis. History of calculus and left hydronephrosis CT abd/pelvis showing 7 mm proximal left ureteral calculus. Pain control, patient with less pain today UA appeared infected but urine is growing only staph and patient's urinary tract is apparently coag negative staph colonized given past urine cultures. Per urology, 7 days of cipro Patient still having quite a lot of pain in his urinary tract with spasms. Ditropan did not lessen the pain. Will pull Jarquin catheter and monitor today. Consulted urology (2) Lower extremity weakness: Likely combination of neuropathy and acute illness MRI spine showing: mild multilevel spondylitic changes, no evidence of high- grade spinal stenosis PT/OT (3) Peripheral neuropathy: Patient with distal neuropathy of bilateral LE, history of the same thought to be secondary to diabetes. Acute worsening over the last 1-2 weeks to the point that he is unable to ambulate and his is unable to care for him. -B12 slightly low - started supplementation, rpr non reactive -Consider Gabapentin when renal function improves although patient had taken this in the past without much improvement (4) Diabetes mellitus: Elevated blood sugar, [id number]=1.9 -Hold oral agents inpatient and resume on discharge -Continue Lantus 10u BID with ISS, pharmacy glycemic consult -Goal blood sugar 100 - 140 (5) COPD (chronic obstructive pulmonary disease): Stable respiratory status -O2 as needed -Continue Breo (6) Depression: Chronic. Well controlled -Continue Bupropion (7) Hypertension: Blood pressure stable -Hold HCTZ, hold Lasix until renal function back to baseline -Continue Metoprolol (8) CAD (coronary artery disease): Stable. No angina -Continue ASA, Plavix, Metoprolol, Rosuvastatin (9) Obstructive sleep apnea of adult: Patient does not wear CPAP -Supplemental O2 as needed (10) Dyslipidemia: Chronic. Stable -Continue Crestor (11) Pericardial effusion: Seen on CT, followed up with limited echo which showed the same. Likely secondary to renal failure. Recommend follow up echo in the next couple of months to ensure that it is not worsening. (12) Chronic kidney disease: With EDILMA Baseline creat around 2.7, today creat 2.77, was 3.3 on admission. Electrolytes, bicarb wnl. Will check again this afternoon as patient has had low urine output today - dc IVF -Consulted nephrology - recommend follow up with Dr. Man in 1-2 weeks (13) DVT prophylaxis: heparin Dispo: If pain is under better control and no urinary retention, will be able to discharge Monday Admission and Anticipated Discharge Date Admission Date: March 06, 2020 Supervising Physician Co-Signing Physician Notes case d/w S Catrachito KITCHEN. as above Subjective Mr. Stephenson is still having significant pain and bladder spasms. He feels like he has to bear down on the catheter which then causes urine to leak out around it. He reports this was occurring about every 20 minutes all night. ROS Constitutional: no chills, aches, sweats or fever Respiratory: no sob,cough, sputum, or wheezing Cardiac: no chest pain, palpitations, edema, orthopnea or lightheadedness GI: no abdominal pain, nausea, vomiting, diarrhea or constipation : no dysuria or hesitancy Extremities: no joint pain or weakness Skin: no rash All other systems reviewed and negative Physical Exam Physical Exam: General: no distress Eyes: normal inspection, PERLL Respiratory: chest non tender, clear to auscultation, normal breath sounds, no respiratory distress, no accessory muscle use Cardiac: regular rate and rhythm, no rub or gallop, no murmur, no edema, no jvd GI/: active bowel sounds, no abd pain or tenderness, soft, non distended Extremities: normal range of motion, normal strength, non tender Neuro/Psych: alert and oriented x 3, normal mood and affect Skin: normal color, dry Results & Data Results & Data ([facility]) Vital Signs (Past 12 Hours) Vital Signs Temp Pulse Resp BP Pulse Ox 03/08/20 07:00 37.2 C 77 20 155/92 H 96 PG Care Time/CCT Total # of Minutes Spent Total Time Spent with Patient: Total time spent is greater than 50% in coordination of care (as documented) at patient's floor/unit and/or counseling patient: Coding Level of Care Code 64157 Subseq Hosp Care Lvl 2 Diagnoses Ureteral stone N20.1 Lower extremity weakness R29.898 Peripheral neuropathy G62.9 Peripheral neuropathy type: polyneuropathy, unspecified Diabetes mellitus E11.22; N18.4 Chronic kidney disease stage: stage 4 (severe) Diabetes mellitus complication detail: with chronic kidney disease Diabetes mellitus complication status: with kidney complications Diabetes mellitus alf insulin use: without salvage determiner use Diabetes mellitus type: type 2 COPD (chronic obstructive pulmonary disease) J43.9 COPD type: emphysema Emphysema type: unspecified Depression F32.9 Depression Type: unspecified Hypertension I10 Hypertension type: essential hypertension CAD (coronary artery disease) I25.10 Associated angina: without angina Coronary Disease-Associated Artery/Lesion type: [place] artery [place] vs. transplanted heart: [place] heart Obstructive sleep apnea of adult G47.33 Dyslipidemia E78.5 Pericardial effusion I31.3 Chronic kidney disease N18.9 DVT prophylaxis Z29.9 (1) Diabetes mellitus Chronic kidney disease stage: stage 4 (severe) Diabetes mellitus complication detail: with chronic kidney disease Diabetes mellitus complication status: with kidney complications Diabetes mellitus salvage determiner insulin use: without alf use Diabetes mellitus type: type 2 Qualified Code(s): E11.22 - Type 2 diabetes mellitus with diabetic chronic kidney disease; N18.4 - Chronic kidney disease, stage 4 (severe) (2) CAD (coronary artery disease) Associated angina: without angina Coronary Disease-Associated Artery/Lesion type: [place] artery [place] vs. transplanted heart: [place] heart Qualified Code(s): I25.10 - Atherosclerotic heart disease of [place] coronary artery without angina pectoris (3) Depression Depression Type: unspecified Qualified Code(s): F32.9 - Major depressive disorder, single episode, unspecified (4) Peripheral neuropathy Peripheral neuropathy type: polyneuropathy, unspecified Qualified Code(s): G62.9 - Polyneuropathy, unspecified (5) COPD (chronic obstructive pulmonary disease) COPD type: emphysema Emphysema type: unspecified Qualified Code(s): J43.9 - Emphysema, unspecified (6) Hypertension Hypertension type: essential hypertension Qualified Code(s): I10 - Essential (primary) hypertension
[2020-03-08] MEDS: ASPIRIN 81 MG ECTAB PO SCH (20:38)
[2020-03-08] MEDS: LATANOPROST 0.005% OP SOLN 2.5 ML BTL OPB SCH (20:38)
[2020-03-09 04:49] LABS: Component 2 DNR; Source KIDNEY
[2020-03-09 05:46] LABS: Calcium 9.1 mg/dl (8.5-10.1); Creatinine Clr Calc Pharmacy 34.3 ml/min; Est GFR (African American) 23.3; Est GFR (Non-African American) 20.1; Potassium 3.7 mmol/L (3.5-5.1)
--- NOTE | 2020-03-09 08:30 | Hospitalist Progress Note ---
Date of Service March 09, 2020 Assessment & Plan (1) Ureteral stone: s/p cystoscopy with evacuation of debris/bladder stones and stent placement With left hydronephrosis. History of calculus and left hydronephrosis CT abd/pelvis showing 7 mm proximal left ureteral calculus. Pain control, patient with less pain today UA appeared infected but urine is growing only staph and patient's urinary tract is apparently coag negative staph colonized given past urine cultures. With persistent dysuria which is causing the patient apprehension about urinating will discontinue ciprofloxacin and changed to ceftriaxone Consideration of adding Pyridium to help with dysuria (2) Lower extremity weakness: Likely combination of neuropathy and acute illness MRI spine showing: mild multilevel spondylitic changes, no evidence of high- grade spinal stenosis PT/OT patient is open to the thought of rehab if needed (3) Peripheral neuropathy: Patient with distal neuropathy of bilateral LE, history of the same thoug ht to be secondary to diabetes. Acute worsening over the last 1-2 weeks to the point that he is unable to ambulate and his is unable to care for him. -B12 slightly low - started supplementation, rpr non reactive -Consider Gabapentin when renal function improves although patient had taken this in the past without much improvement (4) Diabetes mellitus: Elevated blood sugar, WxiV7H=0.9 -Hold oral agents inpatient and resume on discharge -Continue Lantus 10u BID with ISS, pharmacy glycemic consult -Goal blood sugar 100 - 140 (5) COPD (chronic obstructive pulmonary disease): Remains with stable respiratory status -O2 as needed -Continue Breo (6) Depression: Chronic. Continues to be well controlled -Continue Bupropion (7) Hypertension: Blood pressure stable -Hold HCTZ, hold Lasix until renal function back to baseline -Continue Metoprolol (8) CAD (coronary artery disease): Stable. No angina -Continue ASA, Plavix, Metoprolol, Rosuvastatin (9) Obstructive sleep apnea of adult: Patient does not wear CPAP and refuses to consider wearing CPAP -Supplemental O2 as needed (10) Dyslipidemia: Chronic. Stable -Continue Crestor (11) Pericardial effusion: Seen on CT, followed up with limited echo which showed the same. Likely se condary to renal failure. Recommend follow up echo in the next couple of months to ensure that it is not worsening. (12) Chronic kidney disease: With EDILMA Baseline creat around 2.7, today creat 3.05, was 3.3 on admission. Electrolytes, bicarb wnl. -Consulted nephrology - recommend follow up with Dr. Man in 1-2 weeks (13) DVT prophylaxis: heparin Dispo: Patient is ambulatory weakness is the biggest issue at this point time Admission and Anticipated Discharge Date Admission Date: March 06, 2020 Subjective pt states that he feels improved from admission but has persistent weakness and persistent dysuria. Review of Systems Review of Systems: Mild distress and fatigue no headache, blurry or double vision no speech or swallowing issues no chest pain, pressure or palpitations no shortness of breath, cough or wheezes no abdominal pain, nausea or vomiting, diarrhea or constipation Painful dysuria and hesitancy no focal joint pain or swelling no back pain, CVA tenderness or radicular pain no bruising, bleeding or rashes Patient is too weak to walk without a two-person assist has prehospital neuropathy present no complaints or anxiety or depression. Physical Exam Physical Exam: The patient appeared well nourished and normally developed. Patient is morbidly obese with a BMI of 44.6 Vital signs as documented. Head exam is normocephalic atraumatic no scleral icterus Neck is without JVD, thyromegaly, or carotid bruits. Lungs are clear to auscultation, no focal loss of breath sounds Cardiac exam, Rhythm is regular.. No murmurs, rubs or gallops. Abdominal exam reveals normal bowel sounds, soft non tender, no masses Extremities are nonedematous and both pedal pulses are normal. Neurologic exam is alert and oriented, patient has a stocking glove distribution neuropathy Psychologically is without concerns for anxiety or depression Results & Data Results & Data ([facility]) Vital Signs (Past 12 Hours) Vital Signs Temp Pulse Resp BP BP Pulse Ox 03/09/20 07:18 98.2 F 65 20 146/91 H 95 03/08/20 23:22 98.8 F 66 18 122/81 95 03/08/20 20:30 63 16 144/85 H PG Care Time/CCT Total # of Minutes Spent Total Time Spent with Patient: Total time spent is greater than 50% in coordination of care (as documented) at patient's floor/unit and/or counseling patient: Coding Level of Care Code 66474 Subseq Hosp Care Lvl 3 Diagnoses Ureteral stone N20.1 Lower extremity weakness R29.898 Peripheral neuropathy G62.9 Peripheral neuropathy type: polyneuropathy, unspecified Diabetes mellitus E11.22; N18.4 Chronic kidney disease stage: stage 4 (severe) Diabetes mellitus complication detail: with chronic kidney disease Diabetes mellitus complication status: with kidney complications Diabetes mellitus fdc insulin use: without intermodal owner operator truck driver use Diabetes mellitus type: type 2 COPD (chronic obstructive pulmonary disease) J43.9 COPD type: emphysema Emphysema type: unspecified Depression F32.9 Depression Type: unspecified Hypertension I10 Hypertension type: essential hypertension CAD (coronary artery disease) I25.10 Associated angina: without angina Coronary Disease-Associated Artery/Lesion type: [place] artery [place] vs. transplanted heart: [place] heart Obstructive sleep apnea of adult G47.33 Dyslipidemia E78.5 Pericardial effusion I31.3 Chronic kidney disease N18.9 DVT prophylaxis Z29.9 (1) Diabetes mellitus Chronic kidney disease stage: stage 4 (severe) Diabetes mellitus complication detail: with chronic kidney disease Diabetes mellitus complication status: with kidney complications Diabetes mellitus fdc insulin use: without intermodal owner operator truck driver use Diabetes mellitus type: type 2 Qualified Code(s): E11.22 - Type 2 diabetes mellitus with diabetic chronic kidney disease; N18.4 - Chronic kidney disease, stage 4 (severe) (2) CAD (coronary artery disease) Associated angina: without angina Coronary Disease-Associated Artery/Lesion type: [place] artery [place] vs. transplanted heart: [place] heart Qualified Code(s): I25.10 - Atherosclerotic heart disease of [place] coronary artery without angina pectoris (3) Depression Depression Type: unspecified Qualified Code(s): F32.9 - Major depressive disorder, single episode, unspecified (4) Peripheral neuropathy Peripheral neuropathy type: polyneuropathy, unspecified Qualified Code(s): G62.9 - Polyneuropathy, unspecified (5) COPD (chronic obstructive pulmonary disease) COPD type: emphysema Emphysema type: unspecified Qualified Code(s): J43.9 - Emphysema, unspecified (6) Hypertension Hypertension type: essential hypertension Qualified Code(s): I10 - Essential (primary) hypertension
[2020-03-09] MEDS: POLYETHYLENE (MIRALAX) 17 GM PACK PO SCH (08:47)
[2020-03-09] MEDS: FLUTICASONE/VILANTEROL 100/25MCG 14 PUFFS/INHALER INH SCH (08:48)
[2020-03-09] MEDS: METOPROLOL TARTRATE 100 MG TAB PO SCH ×2 (08:50→20:43)
[2020-03-09] MEDS: CLOPIDOGREL BISULFATE 75 MG TAB PO SCH (08:50)
[2020-03-09] MEDS: CIPROFLOXACIN 500 MG TAB PO SCH (08:50)
[2020-03-09] MEDS: ROSUVASTATIN CALCIUM 20 MG TAB PO SCH (08:50)
[2020-03-09] MEDS: ACETAMINOPHEN 325 MG TAB PO SCH ×3 (08:51→20:57)
[2020-03-09] MEDS: FINASTERIDE 5 MG TAB PO SCH (08:51)
[2020-03-09] MEDS: CYANOCOBALAMIN 500 MCG TABLET (VITAMIN B-12) PO SCH (08:51)
[2020-03-09] MEDS: BuPROPion SR 150 MG TABCR PO SCH ×2 (08:52→20:44)
[2020-03-09] MEDS: HEPARIN SOD 5,000 UNIT/0.5 ML VIAL SQ SCH ×2 (08:53→20:47)
[2020-03-09] MEDS: INSULIN GLARGINE SOLOSTAR 100 UNITS/ML 3 ML PEN SC SCH (08:55)
[2020-03-09] MEDS: INSULIN ASPART 100 UNITS/ML 3 ML PEN SC SCH ×4 (08:56→20:49)
[2020-03-09] MEDS: cefTRIAXone SODIUM 2,000 MG in DEXTROSE 5% 50 ML IV SCH (12:57)
[2020-03-09] MEDS: ASPIRIN 81 MG ECTAB PO SCH (20:42)
[2020-03-09] MEDS: LATANOPROST 0.005% OP SOLN 2.5 ML BTL OPB SCH (20:43)
[2020-03-10] MEDS: FLUTICASONE/VILANTEROL 100/25MCG 14 PUFFS/INHALER INH SCH (08:56)
[2020-03-10] MEDS: ACETAMINOPHEN 325 MG TAB PO SCH ×3 (08:57→20:54)
[2020-03-10] MEDS: ROSUVASTATIN CALCIUM 20 MG TAB PO SCH (08:58)
[2020-03-10] MEDS: FINASTERIDE 5 MG TAB PO SCH (08:58)
[2020-03-10] MEDS: CLOPIDOGREL BISULFATE 75 MG TAB PO SCH (08:58)
[2020-03-10] MEDS: METOPROLOL TARTRATE 100 MG TAB PO SCH ×2 (08:58→20:46)
[2020-03-10] MEDS: BuPROPion SR 150 MG TABCR PO SCH ×2 (08:59→20:46)
[2020-03-10] MEDS: CYANOCOBALAMIN 500 MCG TABLET (VITAMIN B-12) PO SCH (08:59)
[2020-03-10] MEDS: HEPARIN SOD 5,000 UNIT/0.5 ML VIAL SQ SCH ×2 (09:00→20:50)
[2020-03-10] MEDS: INSULIN GLARGINE SOLOSTAR 100 UNITS/ML 3 ML PEN SC SCH (09:02)
[2020-03-10] MEDS: INSULIN ASPART 100 UNITS/ML 3 ML PEN SC SCH ×4 (09:04→20:48)
[2020-03-10] MEDS: cefTRIAXone SODIUM 2,000 MG in DEXTROSE 5% 50 ML IV SCH (09:08)
[2020-03-10 09:37] LABS: Basophils # (auto) 0.03 K/uL (0-0.2); Basophils % (auto) 0.3 %; Eosinophils # (auto) 0.22 K/uL (0-0.5); Eosinophils % (auto) 2.4 %; Hematocrit (blood only) 39.6 % (42-52); Hemoglobin 12.5 g/dL (14.0-18.0); Immature Granulocytes # (auto) 0.17 K/uL (0.00-0.02); Immature Granulocytes % (auto) 1.9 %; Lymphocytes # (auto) 0.77 K/uL (1.2-3.4); Lymphocytes % (auto) 8.4 %; Mean Corpuscular Hemoglobin 27.6 pg (25-34); Mean Corpuscular Hgb Conc 31.6 g/dL (32-36); Mean Corpuscular Volume 87.4 fL (80-100); Mean Platelet Volume 9.4 fL (7.4-10.4); Monocytes # (auto) 0.83 K/uL (0.11-0.59); Monocytes % (auto) 9.1 %; Neutrophils # (auto) 7.12 K/uL (1.4-6.5); Neutrophils % (auto) 77.9 %; Nucleated RBC # (auto) 0.02 K/uL (0-0); Nucleated RBC % (auto) 0.3 %; Platelet Count 184 K/uL (130-400); RDW Coefficient of Variation 16.4 % (11.5-14.5); RDW Standard Deviation 52.1 fL (36.4-46.3); Red Blood Count 4.53 M/uL (4.7-6.1); White Blood Count 9.14 K/uL (4.8-10.8)
[2020-03-10 10:07] LABS: BUN Creatinine Ratio 9.8 (10-20); Calcium 9.2 mg/dl (8.5-10.1); Creatinine Clr Calc Pharmacy 34.7 ml/min; Est GFR (African American) 23.6; Est GFR (Non-African American) 20.4; Potassium 3.8 mmol/L (3.5-5.1)
--- NOTE | 2020-03-10 14:11 | Pharmacy Report ---
Pharmacy Glycemic Short Note 2 - Date of Service March 10, 2020 - Glycemic Short BSG Results (Last 24 hours): 03/09/20 03/09/20 03/10/20 17:12 20:20 08:14 Glucose POC Glucose 158 H 199 H 197 H 03/10/20 03/10/20 09:19 12:06 Glucose 230 H POC Glucose 179 H ASSESSMENT: 03/09: * Patient is now re-started on IV Ceftriaxone for persistent dysuria. * Fasting BSG today 197, patient received 8 units of Lantus. * Tightened CR slightly to cover meal time BSGs. PLAN FOR INPATIENT GLYCEMIC CONTROL: * Holding outpatient oral diabetes medications * Basal insulin * Lantus SQ QAM based on scale, hold for BSG < 100mg/dl * Bolus insulin: tightened CR * NovoLog per scale ACHS or Q6hrs while NPO * Goal Range: Low 110 mg/dL - High 140 mg/dL * Correction Factor: 25 mg/dL/unit * TIGHTEN: Nutritional / Prandial insulin per carb ratio of 1 unit per 5 grams CHO consumed PLAN FOR DISCHARGE: * HbA1c = 7.9% on 02/03/20 * Patient with creatinine clearance = 34; currently patient is on Metformin 500 mg PO BID. Metformin is contra-indicated if CrCl less than 30 ml/min. Would not recommend increasing Metformin dose at this time. * Recommend continuing Glimepiride and Trulicity regimens on discharge if patient is not reporting hypoglycemia.
[2020-03-10] MEDS ORDERED: PHENAZOPYRIDINE HCL 200 MG TAB PO STA (15:05)
[2020-03-10] MEDS ORDERED: ALUMINUM/MAGNESIUM SUSP 30 ML UDC PO PRN (15:05)
--- NOTE | 2020-03-10 15:15 | Hospitalist Progress Note ---
Date of Service March 10, 2020 Assessment & Plan (1) Ureteral stone: s/p cystoscopy with evacuation of debris/bladder stones and stent placement CT abd/pelvis 03/05/20 had shown 7 mm proximal left ureteral calculus. With left hydronephrosis. History of calculus and left hydronephrosis UA appeared infected but urine is growing coag negative staph, initial recommendation was cipro With persistent dysuria which is causing the patient apprehension about urinating will discontinue ciprofloxacin and changed to ceftriaxone 03/10/20 adding Pyridium to help with dysuria (2) Lower extremity weakness: Likely combination of neuropathy and acute illness MRI spine showing: mild multilevel spondylitic changes, no evidence of high- grade spinal stenosis PT/OT recommends rehab (3) Peripheral neuropathy: Patient with distal neuropathy of bilateral LE, history of the same thought to be secondary to diabetes. Acute worsening over the last 1-2 weeks to the point that he is unable to ambulate and his is unable to care for him. -B12 slightly low - started supplementation, rpr non reactive -Consider Gabapentin when renal function improves although patient had taken this in the past without much improvement (4) Diabetes mellitus: Elevated blood sugar, NytD7O=8.9 -Hold oral agents inpatient and resume on discharge -Continue Lantus 10u BID with ISS, pharmacy glycemic consult -Goal blood sugar 100 - 140 (5) COPD (chronic obstructive pulmonary disease): Remains with stable respiratory status -O2 as needed -Continue Breo (6) Depression: Chronic. Continues to be well controlled -Continue Bupropion (7) Hypertension: Blood pressure stable -Hold HCTZ, hold Lasix until renal function back to baseline so far has been stubborn in 3 range -Continue Metoprolol (8) CAD (coronary artery disease): Stable. No angina -Continue ASA, Plavix, Metoprolol, Rosuvastatin (9) Obstructive sleep apnea of adult: Patient does not wear CPAP and refuses to consider wearing CPAP -Supplemental O2 as needed (10) Dyslipidemia: Chronic. Stable -Continue Crestor (11) Pericardial effusion: Seen on CT, followed up with limited echo which showed the same. Likely secondary to renal failure. Recommend follow up echo in the next couple of months to ensure that it is not worsening. (12) Chronic kidney disease: With EDILMA Baseline creat around 2.7, today creat 3.05, was 3.3 on admission. Electrolytes, bicarb wnl. -Consulted nephrology - recommend follow up with Dr. Man in 1-2 weeks (13) DVT prophylaxis: heparin Dispo: Patient is ambulatory weakness and dysuria are the biggest issues at this point time Admission and Anticipated Discharge Date Admission Date: March 06, 2020 Subjective pt states that he feels improved from admission but has persistent weakness and persistent dysuria. His focus seems to be his significant dysuria, will try pyridium and if we can contain this symptom will likley move to encompass 03/11/20. pending additional urine culture to define antibiotics Review of Systems Review of Systems: Mild distress and fatigue no headache, blurry or double vision no speech or swallowing issues no chest pain, pressure or palpitations no shortness of breath, cough or wheezes no abdominal pain, nausea or vomiting, diarrhea or constipation Painful dysuria and hesitancy no focal joint pain or swelling no back pain, CVA tenderness or radicular pain no bruising, bleeding or rashes Patient is too weak to walk without a two-person assist has prehospital neuropathy present no complaints or anxiety or depression. Physical Exam Physical Exam: The patient appeared well nourished and normally developed. Patient is morbidly obese with a BMI of 44.6 Vital signs as documented. Head exam is normocephalic atraumatic no scleral icterus Neck is without JVD, thyromegaly, or carotid bruits. Lungs are clear to auscultation, no focal loss of breath sounds Cardiac exam, Rhythm is regular.. No murmurs, rubs or gallops. Abdominal exam reveals normal bowel sounds, soft non tender, no masses Extremities are nonedematous and both pedal pulses are normal. Neurologic exam is alert and oriented, patient has a stocking glove distribution neuropathy Psychologically is without concerns for anxiety or depression Results & Data Results & Data ([facility]) Vital Signs (Past 12 Hours) Vital Signs Temp Pulse Resp BP Pulse Ox 03/10/20 07:20 98.4 F 67 16 146/90 H 95 PG Care Time/CCT Total # of Minutes Spent Total Time Spent with Patient: Total time spent is greater than 50% in coordination of care (as documented) at patient's floor/unit and/or counseling patient: Coding Level of Care Code 66628 Subseq Hosp Care Lvl 2 Diagnoses Ureteral stone N20.1 Lower extremity weakness R29.898 Peripheral neuropathy G62.9 Peripheral neuropathy type: polyneuropathy, unspecified Diabetes mellitus E11.22; N18.4 Diabetes mellitus type: type 2 Diabetes mellitus fdc insulin use: without assistant terminal manager use Diabetes mellitus complication status: with kidney complications Diabetes mellitus complication detail: with chronic kidney disease Chronic kidney disease stage: stage 4 (severe) COPD (chronic obstructive pulmonary disease) J43.9 COPD type: emphysema Emphysema type: unspecified Depression F32.9 Depression Type: unspecified Hypertension I10 Hypertension type: essential hypertension CAD (coronary artery disease) I25.10 Coronary Disease-Associated Artery/Lesion type: [place] artery [place] vs. transplanted heart: [place] heart Associated angina: without angina Obstructive sleep apnea of adult G47.33 Dyslipidemia E78.5 Pericardial effusion I31.3 Chronic kidney disease N18.9 DVT prophylaxis Z29.9 (1) Peripheral neuropathy Peripheral neuropathy type: polyneuropathy, unspecified Qualified Code(s): G62.9 - Polyneuropathy, unspecified (2) Diabetes mellitus Diabetes mellitus type: type 2 Diabetes mellitus assistant terminal manager insulin use: without fdc use Diabetes mellitus complication status: with kidney complications Diabetes mellitus complication detail: with chronic kidney disease Chronic kidney disease stage: stage 4 (severe) Qualified Code(s): E11.22 - Type 2 diabetes mellitus with diabetic chronic kidney disease; N18.4 - Chronic kidney disease, stage 4 (severe) (3) COPD (chronic obstructive pulmonary disease) COPD type: emphysema Emphysema type: unspecified Qualified Code(s): J43.9 - Emphysema, unspecified (4) Depression Depression Type: unspecified Qualified Code(s): F32.9 - Major depressive disorder, single episode, unspecified (5) Hypertension Hypertension type: essential hypertension Qualified Code(s): I10 - Essential (primary) hypertension (6) CAD (coronary artery disease) Coronary Disease-Associated Artery/Lesion type: [place] artery [place] vs. transplanted heart: [place] heart Associated angina: without angina Qualified Code(s): I25.10 - Atherosclerotic heart disease of [place] coronary artery without angina pectoris
[2020-03-10] MEDS: ASPIRIN 81 MG ECTAB PO SCH (20:46)
[2020-03-10] MEDS: LATANOPROST 0.005% OP SOLN 2.5 ML BTL OPB SCH (20:46)
[2020-03-11 02:59] LABS: Component 2 DNR; Source KIDNEY
[2020-03-11 06:15] LABS: Hematocrit (blood only) 40.6 % (42-52); Hemoglobin 12.9 g/dL (14.0-18.0); Mean Corpuscular Hemoglobin 27.7 pg (25-34); Mean Corpuscular Hgb Conc 31.8 g/dL (32-36); Mean Corpuscular Volume 87.1 fL (80-100); Mean Platelet Volume 9.3 fL (7.4-10.4); Platelet Count 198 K/uL (130-400); RDW Coefficient of Variation 16.7 % (11.5-14.5); RDW Standard Deviation 52.2 fL (36.4-46.3); Red Blood Count 4.66 M/uL (4.7-6.1); White Blood Count 9.51 K/uL (4.8-10.8)
[2020-03-11 06:49] LABS: BUN Creatinine Ratio 9.6 (10-20); Est GFR (African American) 22.3; Est GFR (Non-African American) 19.2; Potassium 3.8 mmol/L (3.5-5.1)
--- NOTE | 2020-03-11 07:59 | Hospitalist Progress Note ---
Date of Service March 11, 2020 Assessment & Plan (1) Ureteral stone: s/p cystoscopy with evacuation of debris/bladder stones and stent placement CT abd/pelvis 03/05/20 had shown 7 mm proximal left ureteral calculus. With left hydronephrosis. History of calculus and left hydronephrosis UA appeared infected but urine is growing coag negative staph, initial recommendation was cipro With persistent dysuria which is causing the patient apprehension about urinating will discontinue ciprofloxacin and changed to ceftriaxone 03/10/20 adding Pyridium to help with dysuria (2) Lower extremity weakness: Likely combination of neuropathy and acute illness MRI spine showing: mild multilevel spondylitic changes, no evidence of high- grade spinal stenosis PT/OT recommends rehab (3) Peripheral neuropathy: Patient with distal neuropathy of bilateral LE, history of the same thought to be secondary to diabetes. Acute worsening over the last 1-2 weeks to the point that he is unable to ambulate and his is unable to care for him. -B12 slightly low - started supplementation, rpr non reactive -Consider Gabapentin when renal function improves although patient had taken this in the past without much improvement (4) Diabetes mellitus: Elevated blood sugar, FmsU7D=0.9 -Hold oral agents inpatient and resume on discharge -Continue Lantus 10u BID with ISS, pharmacy glycemic consult -Goal blood sugar 100 - 140 (5) COPD (chronic obstructive pulmonary disease): Remains with stable respiratory status -O2 as needed -Continue Breo (6) Depression: Chronic. Continues to be well controlled -Continue Bupropion (7) Hypertension: Blood pressure stable -Hold HCTZ, hold Lasix until renal function back to baseline so far has been stubborn in 3 range -Continue Metoprolol (8) CAD (coronary artery disease): Stable. No angina -Continue ASA, Plavix, Metoprolol, Rosuvastatin (9) Obstructive sleep apnea of adult: Patient does not wear CPAP and refuses to consider wearing CPAP -Supplemental O2 as needed (10) Dyslipidemia: Chronic. Stable -Continue Crestor (11) Pericardial effusion: Seen on CT, followed up with limited echo which showed the same. Likely secondary to renal failure. Recommend follow up echo in the next couple of months to ensure that it is not worsening. (12) Chronic kidney disease: With EDLIMA Baseline creat around 2.7, today creat 3.05, was 3.3 on admission. Electrolytes, bicarb wnl. -Consulted nephrology - recommend follow up with Dr. Man in 1-2 weeks (13) DVT prophylaxis: heparin Dispo: Patient is ambulatory weakness and dysuria are the biggest issues at this point time Admission and Anticipated Discharge Date Admission Date: March 06, 2020 Subjective pt states that he feels improved from admission but has persistent weakness and persistent dysuria. His focus seems to be his significant dysuria, will try pyridium and if we can contain this symptom will aramisley move to encompass 03/11/20. pending additional urine culture to define antibiotics Review of Systems Review of Systems: Mild distress and fatigue no headache, blurry or double vision no speech or swallowing issues no chest pain, pressure or palpitations no shortness of breath, cough or wheezes no abdominal pain, nausea or vomiting, diarrhea or constipation Painful dysuria and hesitancy no focal joint pain or swelling no back pain, CVA tenderness or radicular pain no bruising, bleeding or rashes Patient is too weak to walk without a two-person assist has prehospital neuropathy present no complaints or anxiety or depression. Physical Exam Physical Exam: The patient appeared well nourished and normally developed. Patient is morbidly obese with a BMI of 44.6 Vital signs as documented. Head exam is normocephalic atraumatic no scleral icterus Neck is without JVD, thyromegaly, or carotid bruits. Lungs are clear to auscultation, no focal loss of breath sounds Cardiac exam, Rhythm is regular.. No murmurs, rubs or gallops. Abdominal exam reveals normal bowel sounds, soft non tender, no masses Extremities are nonedematous and both pedal pulses are normal. Neurologic exam is alert and oriented, patient has a stocking glove distribution neuropathy Psychologically is without concerns for anxiety or depression Results & Data Results & Data ([facility]) Vital Signs (Past 12 Hours) Vital Signs Temp Pulse Resp BP Pulse Ox 03/11/20 07:21 98.1 F 68 17 136/85 95 03/10/20 23:07 98.2 F 68 18 114/80 93 PG Care Time/CCT Total # of Minutes Spent Total Time Spent with Patient: Total time spent is greater than 50% in coordination of care (as documented) at patient's floor/unit and/or counseling patient: Coding Diagnoses Ureteral stone N20.1 Lower extremity weakness R29.898 Peripheral neuropathy G62.9 Peripheral neuropathy type: polyneuropathy, unspecified Diabetes mellitus E11.22; N18.4 Diabetes mellitus type: type 2 Diabetes mellitus prison insulin use: without roasterman use Diabetes mellitus complication status: with kidney complications Diabetes mellitus complication detail: with chronic kidney disease Chronic kidney disease stage: stage 4 (severe) COPD (chronic obstructive pulmonary disease) J43.9 COPD type: emphysema Emphysema type: unspecified Depression F32.9 Depression Type: unspecified Hypertension I10 Hypertension type: essential hypertension CAD (coronary artery disease) I25.10 Coronary Disease-Associated Artery/Lesion type: [place] artery [place] vs. transplanted heart: [place] heart Associated angina: without angina Obstructive sleep apnea of adult G47.33 Dyslipidemia E78.5 Pericardial effusion I31.3 Chronic kidney disease N18.9 DVT prophylaxis Z29.9 (1) Peripheral neuropathy Peripheral neuropathy type: polyneuropathy, unspecified Qualified Code(s): G62.9 - Polyneuropathy, unspecified (2) Diabetes mellitus Diabetes mellitus type: type 2 Diabetes mellitus roasterman insulin use: without prison use Diabetes mellitus complication status: with kidney complications Diabetes mellitus complication detail: with chronic kidney disease Chronic kidney disease stage: stage 4 (severe) Qualified Code(s): E11.22 - Type 2 diabetes mellitus with diabetic chronic kidney disease; N18.4 - Chronic kidney disease, stage 4 (severe) (3) COPD (chronic obstructive pulmonary disease) COPD type: emphysema Emphysema type: unspecified Qualified Code(s): J43.9 - Emphysema, unspecified (4) Depression Depression Type: unspecified Qualified Code(s): F32.9 - Major depressive disorder, single episode, unspecified (5) Hypertension Hypertension type: essential hypertension Qualified Code(s): I10 - Essential (primary) hypertension (6) CAD (coronary artery disease) Coronary Disease-Associated Artery/Lesion type: [place] artery [place] vs. transplanted heart: [place] heart Associated angina: without angina Qualified Code(s): I25.10 - Atherosclerotic heart disease of [place] coronary artery without angina pectoris
[2020-03-11] MEDS: FLUTICASONE/VILANTEROL 100/25MCG 14 PUFFS/INHALER INH SCH (08:48)
[2020-03-11] MEDS: ACETAMINOPHEN 325 MG TAB PO SCH ×2 (08:49→13:43)
[2020-03-11] MEDS: METOPROLOL TARTRATE 100 MG TAB PO SCH (08:50)
[2020-03-11] MEDS: ROSUVASTATIN CALCIUM 20 MG TAB PO SCH (08:50)
[2020-03-11] MEDS: CLOPIDOGREL BISULFATE 75 MG TAB PO SCH (08:51)
[2020-03-11] MEDS: CYANOCOBALAMIN 500 MCG TABLET (VITAMIN B-12) PO SCH (08:51)
[2020-03-11] MEDS: FINASTERIDE 5 MG TAB PO SCH (08:51)
[2020-03-11] MEDS: BuPROPion SR 150 MG TABCR PO SCH (08:51)
[2020-03-11] MEDS: POLYETHYLENE (MIRALAX) 17 GM PACK PO SCH (08:54)
[2020-03-11] MEDS: HEPARIN SOD 5,000 UNIT/0.5 ML VIAL SQ SCH (08:55)
[2020-03-11] MEDS: INSULIN ASPART 100 UNITS/ML 3 ML PEN SC SCH ×2 (08:59→12:42)
[2020-03-11] MEDS ORDERED: INSULIN GLARGINE SOLOSTAR 100 UNITS/ML 3 ML PEN SC SCH (09:00)
[2020-03-11] MEDS: cefTRIAXone SODIUM 2,000 MG in DEXTROSE 5% 50 ML IV SCH (09:04)
--- NOTE | 2020-03-11 11:11 | XRay Report ---
XR KUB/Abdomen 1 view CLINICAL HISTORY: dysuria post stent COMPARISON STUDY: 12/12/2019 FINDINGS: There is no pathologic bowel dilatation. There is bilateral nephrolithiasis. There is a lef t-sided nephroureteral stent in place. IMPRESSION: 1. Nonobstructive bowel gas pattern 2. Left-sided double pigtail nephroureteral stent 3. Bilateral nephrolithiasis ACT 112: Negative or not required by law. Electronically signed by: Rian Hess M.D. 03/11/2020 11:09 AM
--- NOTE | 2020-03-11 14:19 | Discharge Summary ---
Date of Service March 11, 2020 Admission HPI Per Admitting Provider Adonis Stephenson is a 69yo C male with history of DM, HTN, CAD, CKD, COPD presenting with 1-2 weeks of progressive bilateral LE numbness, weakness and gait instability. He reports baseline neuropathy from his diabetes with occasional difficulty walking. Over the past 1-2 weeks, however, he has had increase in the numbness from his ankles to toes bilaterally and aching in his shins. He also feels more weak and feels that his balance is worse. He lives at home with his who is unable to care for him in his current state. Patient denies fevers/chills/falls or trauma. He denies CP/palpitations/SOB/cough/wheeze/abdominal pain/nausea/diarrhea/dysuria/hematuria. He reports chronic low back pain and occasional urinary incontinence at baseline and reports no worsening of these symptoms. No coronavirus concerns at this time. Principal Diagnosis 1) renal colic, s/p Cystoscopy and evacuation of debris/bladder stones, Left Retrograde Pyelogram, ureteroscopy with dilation of ureter and Ureteral Stent Insertion 2) deconditioning Discharge Exam The patient appeared well Vital signs as documented. Lungs are clear to auscultation and appear unlabored Cardiac exam, Rhythm is regular.. No murmurs, rubs or gallops. Abdominal exam reveals normal bowel sounds, soft non tender, no masses Extremities are nonedematous and both pedal pulses are normal. Neurologic exam is alert and oriented, no focal loss of strength or sensation Skin is without bruises or rashes Psychologically is without concerns for anxiety or depression Discharge Data Allergies Allergy/AdvReac Type Severity Reaction Status Date / Time azithromycin AdvReac Intermediate diarrhea Verified 03/05/20 01:10 Consultations 03/05/20 04:25 ED Decision to Admit Stat 03/05/20 10:35 Consult Urology Routine 03/11/20 07:55 Consult Urology Routine Procedures Performed Operation Date: 03/05/20 17:30 Actual Procedures p Cystoscopy and evacuation of debris/bladder stones, Left Retrograde Pyelogram, ureteroscopy with dilation of ureter and Ureteral Stent Insertion(Left) - Aba Gong, Ordered Studies 03/04/20 22:18 US arterial duplex LE BI Urgent 03/05/20 FL retrograde includes kub Routine 03/05/20 01:23 MR lumbar spine wo con Urgent 03/05/20 08:35 CT abd pelvis wo con Routine Hospital Course (1) Ureteral stone: s/p cystoscopy with evacuation of debris/bladder stones and stent placement CT abd/pelvis 03/05/20 had shown 7 mm proximal left ureteral calculus. With left hydronephrosis. History of calculus and left hydronephrosis UA appeared infected but urine is growing coag negative staph, initial recommendation was cipro, with persistent dysuria will change to bactrim at dc( no sensitivities were run on coag neg staph) With persistent dysuria which is causing the patient apprehension about urinating will dc on Pyridium to help with dysuria (2) Lower extremity weakness: Likely combination of neuropathy and acute illness MRI spine showing: mild multilevel spondylitic changes, no evidence of high- grade spinal stenosis PT/OT recommends rehab (3) Peripheral neuropathy: Patient with distal neuropathy of bilateral LE, history of the same thought to be secondary to diabetes. Acute worsening over the last 1-2 weeks to the point that he is unable to ambulate and his is unable to care for him. -B12 slightly low -will recommend mvi -Consider Gabapentin when renal function improves although patient had taken this in the past without much improvement (4) Diabetes mellitus: Elevated blood sugar, MbuW0M=6.9 -Held oral agents inpatient and resume on discharge (5) COPD (chronic obstructive pulmonary disease): Remains with stable respiratory status -O2 as needed -Continue Breo (6) Depression: Chronic. Continues to be well controlled -Continue Bupropion (7) Hypertension: Blood pressure stable -Hold HCTZ, hold Lasix until renal function back to baseline so far has been stubborn in 3 range -Continue Metoprolol (8) CAD (coronary artery disease): Stable. No angina -Continue ASA, Plavix, Metoprolol, Rosuvastatin (9) Obstructive sleep apnea of adult: Patient does not wear CPAP and refuses to consider wearing CPAP -Supplemental O2 as needed (10) Dyslipidemia: Chronic. Stable -Continue Crestor (11) Pericardial effusion: Seen on CT, followed up with limited echo which showed the same. Likely secondary to renal failure. Recommend follow up echo in the next couple of months to ensure that it is not worsening. (12) Chronic kidney disease: With EDILMA Baseline creat around 2.7, today creat 3.05, was 3.3 on admission. Electrolytes, bicarb wnl. -Consulted nephrology - recommend follow up with Dr. Man in 1-2 weeks (13) DVT prophylaxis: heparin Dispo: Patient is ambulatory weakness and dysuria are the biggest issues at this point time Total Time Total Time Spent Total Time Spent (In Minutes): It required greater than 30 minutes to prepare this patient for discharge Discharge Plan Discharge Items Patient Disposition: Transfer Inpatient Rehab Fac Reason For Visit: NEUROPATHY Discharge Diagnosis: ureteral stone Activity: Resume your previous activity Non-emergency contact: Primary Care Provider Call non-emergency contact if: you have any medication questions Follow-up/Referrals: Rehan Man DO [Physician] - (Follow up with Dr. Man in 1-2 weeks) Aba Gong DO [Physician] - 03/18/20 9:50 am () Salas Valente DO [Primary Care Provider] - Diet: Carb Consistent or DM2 Addtl Attending Provider Instructions: (1) Ureteral stone: With left hydronephrosis. History of calculus and left hydronephrosis s/p cystoscopy 03/05 with evacuation of debris/bladder stones and stent placement CT abd/pelvis showing 7 mm proximal left ureteral calculus. Maintain Jarquin catheter until follow up in about a week change to bactrim for persistent dysuria (2) Lower extremity weakness: Likely combination of neuropathy and acute illness MRI spine showing: mild multilevel spondylitic changes, no evidence of high- grade spinal stenosis PT/OT (3) Peripheral neuropathy: Patient with distal neuropathy of bilateral LE, history of the same thou ght to be secondary to diabetes. Acute worsening over the last 1-2 weeks to the point that he is unable to ambulate and his is unable to care for him. -B12 slightly low - consider MVI, rpr non reactive -Consider Gabapentin when renal function improves although patient had taken this in the past without much improvement (4) CKD (chronic kidney disease) with EDILMA: Baseline creatinine around 2.7, was 3.3 on admission, now 2.9. - recheck prp in a week -Consult nephrology - patient should follow up with Dr. Man in 1-2 weeks (5) Diabetes mellitus: Elevated blood sugar, [id number]=8.9 -Hold oral agents while inpatient - resume at discharge (6) COPD (chronic obstructive pulmonary disease): Stable respiratory status -Continue home inhalers (7) Depression: -Continue Bupropion (8) Hypertension: Blood pressure stable -Hold HCTZ, hold Lasix until kidney function resolves -Continue Metoprolol (9) CAD (coronary artery disease): Stable. No angina -Continue ASA, Plavix, Metoprolol, Rosuvastatin (10) Obstructive sleep apnea of adult: Patient does not wear CPAP -Supplemental O2 as needed (10) Dyslipidemia: Chronic. Stable -Continue Crestor (11) Pericardial effusion Trace, seen on CT and follow up limited echo. Likely secondary to renal failure. Recommend follow up echo in a few months to ensure no change or resolution Pending Studies at Discharge: No Stand-Alone Forms: Boticca, Opioid Pain Management Skilled Items Patient informed of condition?: Yes DNR: No Discharge Level of Care: Acute rehab Communicable Disease: No Discharge Prognosis: Improving Lines: None Urinary Catheter: No Medications and DC Order Prescriptions: New oxycodone 5 mg Tablet 5 mg PO Q4 PRN (Reason: pain) Qty: 20 RF: 0 acetaminophen 325 mg Tablet 650 mg PO TID Qty: 30 RF: 0 cyanocobalamin (vitamin B-12) 500 mcg Tablet 500 mcg PO QAM Qty: 30 RF: 0 oxybutynin chloride 5 mg Tablet 5 mg PO TID PRN (Reason: bladder spasms) Qty: 30 RF: 0 phenazopyridine [Pyridium] 200 mg tablet 200 mg PO Q8H PRN (Reason: pain) Qty: 10 RF: 0 sulfamethoxazole-trimethoprim [Bactrim DS] 800-160 mg tablet 1 tab PO BID 5 Days Qty: 10 RF: 0 insulin aspart U-100 [Novolog Flexpen U-100 Insulin] 100 unit/mL (3 mL) Insulin Pen 1 units SC ACHS Qty: 3 RF: 0 Continued finasteride [Proscar] 5 mg tablet 5 mg PO QAM Qty: 90 RF: 1 (DME) pen needle, diabetic [Comfort EZ Pen [place]] 31 gauge x 3/16" needle See Rx Instructions .ROUTE .MEDSUPPLY Qty: 50 RF: 3 trospium 60 mg capsule,extended release 24hr 60 mg PO DAILY Qty: 90 RF: 3 clopidogrel 75 mg tablet 75 mg PO DAILY Qty: 90 RF: 3 Saccharomyces boulardii 1 ea PO DAILY RF: 0 ipratropium-albuterol 0.5 mg-3 mg(2.5 mg base)/3 mL solution for nebulization 3 ml INHALATION QID PRN (Reason: COPD ) Qty: 180 RF: 5 (DME) True Metrix Glucose Test Strip Strip See Rx Instructions .ROUTE .MEDSUPPLY Qty: 50 RF: 5 bupropion HCl 150 mg tablet sustained-release 12 hr See Rx Instructions .ROUTE .COMPLEX Qty: 180 RF: 1 glimepiride 2 mg tablet See Rx Instructions .ROUTE .COMPLEX Qty: 180 RF: 1 (DME) lancets [OneTouch Delica Lancets] 33 gauge misc See Dose Instructions .ROUTE .MEDSUPPLY Qty: 100 RF: 1 metoprolol tartrate [Lopressor] 100 mg tablet 100 mg PO BID Qty: 180 RF: 1 rosuvastatin [Crestor] 40 mg tablet 40 mg PO DAILY Qty: 90 RF: 1 latanoprost [Xalatan] 0.005 % drops 1 drp OPB HS RF: 0 polyethylene glycol 3350 [Miralax] 17 gram Powder In Packet 17 g PO Q OTHER DAY RF: 0 nitroglycerin [Nitrostat] 0.4 mg Tablet, Sublingual 0.4 mg Sublingual UD PRN (Reason: Chest Pain) RF: 0 cholecalciferol (vitamin D3) [Vitamin D3] 1,000 unit Tablet 1,000 unit PO BID RF: 0 aspirin [Aspir-81] 81 mg Tablet,Delayed Release (Dr/Ec) 81 mg PO QPM Qty: 0 RF: 0 Breo Ellipta 100-25 mcg/dose blister with device 1 inh inhalation QAM RF: 0 Discontinued furosemide 20 mg tablet 20 mg PO DAILY PRN (Reason: edema) Qty: 90 RF: 1 hydrochlorothiazide 25 mg tablet 25 mg PO DAILY Qty: 90 RF: 1 Discharge Orders: Discharge Order (Routine); Ordered 03/11/20 Ordered By: Jayson Dee/Other Patient Handouts: Long-Term Complications of Diabetes, Preventing Deep Vein Thrombosis, Having a Ureteral Stent, What Is Peripheral Neuropathy, Understanding Kidney Stones Admission Data Admit Date/Time: 03/06/20 09:17 Attending Provider: Jayson De La Torre Admit Provider: Brunilda King Primary Care Provider: Salas Valente Other Providers: [facility] ; Brunilda King ; Corwin Delgado ; Marshal Reed Other Interventions: Discharge Summary Assessment (RN) Last Done: 03/11/20 12:25 Coding Level of Care Code D/C Day Management >30 mins Diagnoses Ureteral stone N20.1 Lower extremity weakness R29.898 Peripheral neuropathy G62.9 Peripheral neuropathy type: polyneuropathy, unspecified Diabetes mellitus E11.22; N18.4 Chronic kidney disease stage: stage 4 (severe) Diabetes mellitus complication detail: with chronic kidney disease Diabetes mellitus complication status: with kidney complications Diabetes mellitus continuous churn buttermaker insulin use: without continuous churn buttermaker use Diabetes mellitus type: type 2 COPD (chronic obstructive pulmonary disease) J43.9 COPD type: emphysema Emphysema type: unspecified Depression F32.9 Depression Type: unspecified Hypertension I10 Hypertension type: essential hypertension CAD (coronary artery disease) I25.10 Associated angina: without angina Coronary Disease-Associated Artery/Lesion type: [place] artery [place] vs. transplanted heart: [place] heart Obstructive sleep apnea of adult G47.33 Dyslipidemia E78.5 Pericardial effusion I31.3 Chronic kidney disease N18.9 DVT prophylaxis Z29.9
== END 2020-03-11 14:41 | DRG 660 ==
LOC: 3E 21:56 → ED 21:56 → 3E 03-05 06:36 → SUATTDRO 03-06 09:17 → 3E 03-08 11:29

== ENCOUNTER 2020-03-30 01:47 | Inpatient (IN) ==
[2020-03-30] MEDS ORDERED: ONDANSETRON INJ 2 MG/ML 2 ML VIAL IV STA (02:11)
[2020-03-30] MEDS ORDERED: fentaNYL citrate 100 MCG/2 ML VIAL IV STA (02:11)
[2020-03-30] MEDS ORDERED: SODIUM CHLORIDE 0.9% 1000ML 500 ML IV ONE (02:11)
--- NOTE | 2020-03-30 02:18 | Emergency Department Note ---
Impression & Plan Acute distention of stomach, Nausea, vomiting and diarrhea, Abdominal pain, acute, Substernal chest pain ED Provider Note Name: ANNA DELGADO Age: 69 Sex: M Arrives Via: Walk-In Informant: Patient ED Provider: Cale Dasilva MD Chief Complaint: Abdominal Pain Impression: Acute distention of stomach nausea, vomiting, diarrhea Abdominal Pain, Acute Substernal Chest Pain Medical Decision Makin / M with extensive PMH including CKD, DMII, CAD, GERD, HTN, SREEKANTH, DLP, COPD who recently was discharged after hospitalization for left renal stones/colic and stent placement along with bilateral leg weakness. Arrives acute nausea, vomiting, and diarrhea. notes emesis feculent in material. Patient with continued pain nausea despite dilaudid and zofran. CT read without obstruction though with continued nausea and concerns of enlarged stomach I opted to given small dose ativan and place NG tube with copious bowel outs and improvement in abdominal discomfort. He furthermore notes recent change in coloration to urine. UA is clearly dirty though difficult to say if infectious as no bacteria. With symptoms I felt it prudent to start abx empirically and will defer to hospitalist and consultants if further workup for possible infected stent necessary. I will note that patient does not appear septic and he is much more comfortable. Patient without fevers, chills, shortness of breath nor cough. Patient at one point with substernal chest pain he related to be reflux, he was actually able to tolerate GI cocktail with vast improvement thus I suspect he was correct in this being GERD. EKG ok and initial trop negative. Will avoid asa given gastric issues. Prior Medical Record and Triage/Nursing Notes reviewed by Me Additional history obtained from Differentials:Appendicitis, testicular torsion, infections, diverticulitis, UTI, obstruction, mesenteric ischemia, aortic pathology, inflammatory bowel disease, renal colic, PUD, pancreatitis, biliary pathology, hernia, volvulus, constipation, as well as other pathologies. Vital Signs: reviewed and remarkable for wnl Interventions: saline lock, dilaudid 1mg & 0.5mg IV, Zofran 4mg IV, Ativan 0.5mg IV, GI Cocktail, NG Tube Labs:Reviewed and remarkable for no significant abnormalities Imaging:[facility] Radiologist interpretation reviewed by me: "CT ABDOMEN & PELVIS Without Contrast: Comparison: 03/05/2020 Left posterior medial subpleural 7 cm bulla unchanged from prior exam. Adjacent basilar scarring. Mild right coronary calcification. Fatty liver. Multiple dependent layering gallbladder stones. Punctate upper pole splenic calcified granuloma Right adrenal 4.5 cm mass with focal fat at its medial upper pole. Consider myelolipoma. No change from prior. Interval placement of left-sided double-J ureteral stent. Left kidney mid to lower pole stone around the pigtail catheter. Additional small stones in the m ore inferior aspect of the lower pole, mild left renal pelvis. Distal end of the stent is within the bladder. No bladder stones are identified. Mesenteric lipomatosis. Distended loops of small bowel without signs of obstruction. Status post cholecystectomy. Midline anterior abdominal wall periumbilical hernia. Right inguinal fat containing hernia. Small left inguinal fat-containing hernia Mild right sacroiliitis and convex left curvature of the lumbar spine apex at L3. Summary: Interval left-sided double-J ureteral stent in satisfactory position. Persistent left nephrolithiasis and additional stones at the left renal pelvis. Radiologist: Bia Quach MD" EKG:Per My Interpretation: Indication Chest Pain: NSR 99 bpm, qtc 444. No Ectopy. No Ischemia. Compared to EKG 03/04/20, no significant changes. Cardiac/Tele Monitoring: Cardiac Monitoring: An Order was placed for continuous cardiac monitoring. The monitor shows a rate of 80 with a normal sinus rhythm. Consults:Dr Fernando RADFORD Hospitalist for further management Plan: Disposition:Hospitalization. Condition: Good Blood pressure:Normal.No Referral necessary Prescriptions:none PDMP: n/a History of Present Illness:69 / M with extensive PMH including CKD, DMII, CAD, GERD, HTN, SREEKANTH, DLP, COPD arrives for evaluation of abdominal pain. Notes diffuse anterior abdominal pain all day. Associated nausea, vomiting, diarrhea. Diarrhea is every time he stands. Watery brown. No blood in stool nor vomit. Not able to eat nor drink anything all day. States he noted urine was dark as well. Denies fevers, chills, chest pain, shortness of breath (beyond baseline), headache, neck pain, rashes, leg swelling (beyond normal), nor other symptoms. No medications prior to arrival. Nothing makes better nor worse. ROS: See above HPI for pertinent positives & negatives. A total of 10 systems reviewed and were otherwise negative. Past Medical History:CKD, DMII, CAD, GERD, HTN, SREEKANTH, DLP, COPD Past Surgical History:Cardiac Stents, Lithotripsy, TURP, Family History:mother CAD, DMII, Social History:previous smoker, no drugs, no etoh, , retired. Home Medications:Extensive, see below Allergies:azithromycin Vitals:Blood Pressure: 148/86, Pulse 98, RR 20, T 36.9C, O2 95% on RA Physical Exam: GENERAL: Patient is uncomfortable appearing and in moderate distress. EYES: No scleral icterus, unremarkable pupils. ENT: Mucous membranes drt, no nasal congestion. NECK: No masses appreciated, nomeningismus, trachea is midline. RESPIRATORY: No dyspnea. Clear to auscultation and equal bilaterally. No wheeze, no rhonchi. CARDIOVASCULAR: Regular rate and rhythm.No murmurs, rubs, gallops appreciated. GASTROINTESTINAL: Large abdomen with distant bowel sounds, no significant TTP. No peritonitis.No masses appreciated. BACK: No midline tenderness, no CVA tenderness EXTREMITIES: Normal motion all extremities, no cyanosis, no edema. NEUROLOGIC: Alert and oriented, no acute motor or sensory deficits, no focal weakness, cranial nerves grossly intact. SKIN: No rash, no jaundice, no diaphoresis. PSYCH: Appropriate GCS: 15 ED Course: Times/Reassessments: Multiple repeat evaluations, vastly improved with ng tube Cale Dasilva MD Past Med/Surg History Medical History (Updated 03/31/20 @ 00:09 by Cale Dasilva MD) BPH (benign prostatic hyperplasia) CAD (coronary artery disease) Acute MO 03/2011, complicated by 3 episodes of v fib requiring electrical shock- ZITA x2 COPD (chronic obstructive pulmonary disease) Severe, per pulm- 2L N/C prn (per patient, typically uses rarely/monthly) Diabetes mellitus GERD (gastroesophageal reflux disease) Hypertension Hypophosphatemia Nephrolithiasis Obstructive sleep apnea of adult no device. patient refuses CPAP Peripheral neuropathy Surgical History History of bilateral cataract extraction History of cardiac cath 2010- stents x2 History of carpal tunnel release right History of colonoscopy Colonoscopy: 03/18/19: MAC sedation at [facility] History of lithotripsy Left ESWL: 09/14/18: LMA#5 at [facility] (weight at time: 135.1kg) History of lithotripsy Left ESWL 06/07/19 [facility] History of tooth extraction Hx of transurethral resection of prostate S/P cystoscopy with ureteral stent placement 08/23/2018. MAC. No issues. 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 Required: No Beliefs That Will Affect Care: None marital status: Current Living Situation: Spouse Feels Safe at Home: Yes Dental Care, Regularly: Yes Seatbelt Use: sometimes Allergies Allergies Allergy/AdvReac Type Severity Reaction Status Date / Time azithromycin AdvReac Intermediate diarrhea Verified 03/26/20 13:22 Home Meds Home Medications Medication Instructions Recorded Confirmed cholecalciferol (vitamin D3) 1,000 unit PO BID 08/22/18 03/30/20 [Vitamin D3] nitroglycerin [Nitrostat] 0.4 mg SUBLINGUAL UD PRN 08/22/18 03/30/20 furosemide 20 mg tablet 20 mg PO DAILY PRN 03/20/20 03/30/20 gabapentin 300 mg capsule 300 mg PO BID 03/20/20 03/30/20 bupropion HCl 150 mg PO BID 03/30/20 03/30/20 Previous Rx's Medication Instructions Recorded aspirin [Aspir-81] 81 mg PO QPM #0 tab 09/14/18 ipratropium 0.5 mg-albuterol 3 mg 3 ml INHALATION QID PRN #180 ml 04/09/19 (2.5 mg base)/3 mL nebulization soln finasteride 5 mg tablet 5 mg PO QAM #90 tab 09/03/19 pen needle, diabetic 31 gauge x #50 ea 11/04/1911/10" clopidogrel 75 mg tablet 75 mg PO DAILY #90 tab 01/21/20 blood sugar diagnostic #50 ea 02/19/20 lancets 33 gauge #100 ea 02/19/20 metoprolol tartrate 100 mg tablet 100 mg PO BID #180 tab 02/19/20 rosuvastatin 40 mg tablet 40 mg PO DAILY #90 tab 02/19/20 acetaminophen 650 mg PO TID #30 tab 03/07/20 oxybutynin chloride 5 mg PO TID PRN #30 tab 03/07/20 oxycodone 5 mg PO Q4 PRN #20 tab 03/07/20 potassium citrate 15 mEq (1,620 15 meq PO BID #60 tab 03/20/20 mg) tablet,extended release dulaglutide 1.5 mg/0.5 mL 1.5 mg SQ .COMPLEX #2 ml 03/25/20 subcutaneous pen injector glimepiride 2 mg tablet 3 mg PO BID #180 tab 03/25/20 metformin 500 mg tablet 500 mg PO BID #60 tab 03/25/20 insulin detemir U-100 100 unit/mL 5 units SQ QPM #3 ml 03/26/20 (3 mL) subcutaneous pen pen needle, diabetic 32 gauge x #100 ea 03/26/20" Results & Data (ED) Vital Signs Vital Signs - 24 hr 03/30/20 01:57 03/30/20 02:42 03/30/20 03:00 Temperature 36.9 C Temperature Source Oral Pulse Rate 98 H 96 H 98 H Pulse Rate from SpO2 Sensor 96 H 98 H Respiratory Rate 20 16 12 Respiratory Effort / Characteristics Non-Labored Spontaneous Respiratory Depth Normal Blood Pressure 148/86 H 156/104 H 155/105 H Blood Pressure Mean 106 115 119 Pulse Oximetry 95 97 97 Oxygen Delivery Method Room Air Nasal Cannula Nasal Cannula Oxygen Flow Rate 2 2 Sepsis New/Unexplained Change in Mental Status N/A Sepsis Action Taken by Nursing No Action Required 03/30/20 03:06 03/30/20 03:51 03/30/20 04:00 Temperature Temperature Source Pulse Rate 98 H 102 H 98 H Pulse Rate from SpO2 Sensor 98 H Respiratory Rate 18 20 17 Respiratory Effort / Characteristics Respiratory Depth Blood Pressure 131/88 150/90 H 140/94 Blood Pressure Mean 103 104 103 Pulse Oximetry 98 Oxygen Delivery Method Nasal Cannula Oxygen Flow Rate 2 Sepsis New/Unexplained Change in Mental Status Sepsis Action Taken by Nursing 03/30/20 04:30 03/30/20 05:00 Temperature Temperature Source Pulse Rate 95 H 100 H Pulse Rate from SpO2 Sensor Respiratory Rate 16 24 Respiratory Effort / Characteristics Respiratory Depth Blood Pressure 151/84 H 143/85 H Blood Pressure Mean 96 108 Pulse Oximetry 97 97 Oxygen Delivery Method Nasal Cannula Nasal Cannula Oxygen Flow Rate 2 2 Sepsis New/Unexplained Change in Mental Status Sepsis Action Taken by Nursing Laboratory Data Result diagrams: 03/30/20 02:25 03/30/20 02:25 Lab Results 03/30/20 03/30/20 03/30/20 Range/Units 02:25 02:25 03:48 WBC 11.72 H (4.8-10.8) K/uL RBC 4.88 (4.7-6.1) M/uL Hgb 13.6 L (14.0-18.0) g/dL Hct 43.6 (42-52) % MCV 89.3 (80-100) fL MCH 27.9 (25-34) pg MCHC 31.2 L (32-36) g/dL RDW Std Deviation 54.2 H (36.4-46.3) fL RDW Coeff of Cirilo 16.6 H (11.5-14.5) % Plt Count 203 (130-400) K/uL MPV 9.4 (7.4-10.4) fL Immature Gran % (Auto) 0.4 % Neut % (Auto) 81.2 % Lymph % (Auto) 12.0 % [place] % (Auto) 5.8 % Eos % (Auto) 0.4 % Baso % (Auto) 0.2 % Neut # (Auto) 9.51 H (1.4-6.5) K/uL Lymph # (Auto) 1.41 (1.2-3.4) K/uL [place] # (Auto) 0.68 H (0.11-0.59) K/uL Eos # (Auto) 0.05 (0-0.5) K/uL Baso # (Auto) 0.02 (0-0.2) K/uL Immature Gran # (Auto) 0.05 H (0.00-0.02) K/uL Sodium 143 (136-145) mmol/L Potassium 4.5 (3.5-5.1) mmol/L Chloride 107 (98-107) mmol/L Carbon Dioxide 27 (21-32) mmol/L Anion Gap 9.0 (3-11) BUN 33 H (7-18) mg/dl Creatinine 2.66 H (0.6-1.4) mg/dl Est Cr Clr Drug Dosing Not Reportable Est GFR ( Amer) 27.5 Est GFR (Non-Af Amer) 23.8 BUN/Creatinine Ratio 12.5 (10-20) Glucose 247 H (70-99) mg/dl Calcium 9.9 (8.5-10.1) mg/dl Magnesium 2.0 (1.8-2.4) mg/dl Total Bilirubin 0.6 (0.2-1) mg/dl Direct Bilirubin 0.2 (0-0.2) mg/dl AST 13 L (15-37) U/L ALT 25 (12-78) U/L Alkaline Phosphatase 104 (45-117) U/L Troponin I < 0.015 (0-0.045) ng/ml Total Protein 7.3 (6.4-8.2) gm/dl Albumin 2.9 L (3.4-5.0) gm/dl Lipase 125 (73-393) U/L Urine Color [place] Urine Appearance Turbid A (Clear) Urine pH 6.5 (4.5-7.5) Ur Specific [place] 1.026 (1.000-1.030) Urine Protein 3+ H (Negative) Urine Glucose (UA) 2+ H (Negative) Urine Ketones Trace H (Negative) Urine Blood 3+ H (Negative) Urine Nitrite Positive A (Negative) Urine Bilirubin Negative (Negative) Urine Urobilinogen Negative (Negative) Ur Leukocyte Esterase 2+ H (Negative) Urine WBC (Auto) >30 H (0-5) /hpf Urine RBC (Auto) >30 H (0-4) /hpf U Hyaline Cast (Auto) 1-5 (0-5) /lpf U Epithel Cells (Auto) 5-10 H (0-5) /lpf Urine Bacteria (Auto) Negative (Negative) Administered Medications Acetaminophen (Tylenol) 650 mg PO TID [facility] Stop: 04/29/20 08:59 Last Admin: 03/30/20 21:09 Dose: 650 mg Documented by: [id number] Admin: 03/30/20 14:15 Dose: 650 mg Documented by: [id number] Admin: 03/30/20 08:53 Dose: 650 mg Documented by: [id number] Aspirin (Ecotrin Ectab) 81 mg PO QPM [facility] Stop: 04/29/20 20:59 Last Admin: 03/30/20 21:03 Dose: 81 mg Documented by: [id number] Bupropion HCl (Wellbutrin-Sr) 150 mg PO BID KAYLEEN Stop: 04/29/20 08:59 Last Admin: 03/30/20 21:04 Dose: 150 mg Documented by: [id number] Admin: 03/30/20 08:48 Dose: 150 mg Documented by: [id number] Clopidogrel Bisulfate (Plavix) 75 mg PO DAILY KAYLEEN Stop: 04/29/20 08:59 Last Admin: 03/30/20 08:48 Dose: 75 mg Documented by: [id number] Enoxaparin Sodium (Lovenox) 40 mg SQ Q12H KAYLEEN Stop: 04/29/20 07:59 Last Admin: 03/30/20 20:56 Dose: 40 mg Documented by: [id number] Admin: 03/30/20 09:11 Dose: 40 mg Documented by: [id number] Finasteride (Proscar) 5 mg PO QAM KAYLEEN Stop: 04/29/20 08:59 Last Admin: 03/30/20 08:48 Dose: 5 mg Documented by: [id number] Gabapentin (Neurontin) 300 mg PO BID KAYLEEN Stop: 04/29/20 08:59 Last Admin: 03/30/20 21:04 Dose: 300 mg Documented by: [id number] Admin: 03/30/20 08:47 Dose: 300 mg Documented by: [id number] Lactated Ringer's (Lr) 1,000 mls @ 100 mls/hr IV .Q10H KAYLEEN Stop: 03/31/20 02:35 Last Admin: 03/30/20 17:33 Dose: 100 mls/hr Documented by: [id number] Infusion: 03/30/20 17:33 Dose: 100 mls/hr Documented by: [id number] Admin: 03/30/20 07:47 Dose: 100 mls/hr Documented by: [id number] Insulin Aspart (Novolog Flexpen) 0 units SC ACHS KAYLEEN Stop: 04/29/20 16:59 Last Admin: 03/30/20 21:06 Dose: 2 units Documented by: [id number] Cosigned by: [id number] Admin: 03/30/20 18:03 Dose: 4 units Documented by: [id number] Cosigned by: [id number] Insulin Glargine (Lantus Solostar Pen) 5 units SC BID KAYLEEN Stop: 04/29/20 08:59 Last Admin: 03/30/20 21:05 Dose: 5 units Documented by: [id number] Cosigned by: [id number] Admin: 03/30/20 08:54 Dose: 5 units Documented by: [id number] Cosigned by: [id number] Metoprolol Tartrate (Lopressor) 100 mg PO BID KAYLEEN Stop: 04/29/20 08:59 Last Admin: 03/30/20 21:04 Dose: 100 mg Documented by: [id number] Admin: 03/30/20 08:47 Dose: 100 mg Documented by: [id number] Miscellaneous (Order Awaiting Action) 1 ea N/A QS KAYLEEN Stop: 04/29/20 07:59 Last Admin: 03/30/20 23:39 Dose: Not Given Documented by: [id number] Admin: 03/30/20 17:54 Dose: Not Given Documented by: [id number] Admin: 03/30/20 08:46 Dose: Not Given Documented by: [id number] Rosuvastatin Calcium (Crestor) 40 mg PO DAILY KAYLEEN Stop: 04/29/20 08:59 Last Admin: 03/30/20 08:47 Dose: 40 mg Documented by: [id number] Vitamin D (Vitamin D3) 1,000 units PO BID KAYLEEN Stop: 04/29/20 08:59 Last Admin: 03/30/20 21:03 Dose: 1,000 units Documented by: [id number] Admin: 03/30/20 08:48 Dose: 1,000 units Documented by: [id number] Discontinued Medications Al Hydrox/Mg Hydrox/Simethicone () 1 dose PO ONE ONE Stop: 03/30/20 03:12 Last Admin: 03/30/20 03:16 Dose: 1 dose Documented by: [id number] Fentanyl Citrate (Fentanyl Citrate) 50 mcg IV NOW STA Stop: 03/30/20 02:12 Last Admin: 03/30/20 02:37 Dose: 50 mcg Documented by: [id number] Hydromorphone HCl (Dilaudid) 0.5 mg IV NOW STA Stop: 03/30/20 02:58 Last Admin: 03/30/20 03:06 Dose: 0.5 mg Documented by: [id number] Sodium Chloride (Nss 1000ml) 500 mls @ 999 mls/hr IV .Q31M ONE Stop: 03/30/20 02:41 Last Infusion: 03/30/20 03:06 Dose: 0 mls/hr Documented by: [id number] Admin: 03/30/20 02:36 Dose: 999 mls/hr Documented by: [id number] Ceftriaxone Sodium (Rocephin) 2,000 mg in 70 mls @ 140 mls/hr IV NOW STA Stop: 03/30/20 05:16 Last Infusion: 03/30/20 05:50 Dose: 0 mls/hr Documented by: [id number] Admin: 03/30/20 05:09 Dose: 140 mls/hr Documented by: [id number] Lorazepam (Ativan) 0.5 mg in 1 mls @ 1 mls/min IV NOW STA Stop: 03/30/20 04:54 Last Admin: 03/30/20 05:24 Dose: 1 mls/min Documented by: [id number] Insulin Aspart (Novolog Flexpen) 0 units SC ACHS KAYLEEN Stop: 04/29/20 07:29 Last Admin: 03/30/20 13:01 Dose: 2 units Documented by: [id number] Cosigned by: [id number] Admin: 03/30/20 08:56 Dose: 6 units Documented by: [id number] Cosigned by: [id number] Ondansetron HCl (Zofran) 4 mg IV NOW STA Stop: 03/30/20 02:12 Last Admin: 03/30/20 02:36 Dose: 4 mg Documented by: [id number] Discharge Plan Visit Data *Final* Discharge Date/Time: 03/30/20 05:56 Chief Complaint: Diarrhea Stated Complaint: DIARRHEA,VOMITING, STOMACH PAINS ED Provider: Cale Dasilva Discharge Problem: Acute distention of stomach, Nausea, vomiting and diarrhea, Abdominal pain, acute, Substernal chest pain Patient Disposition: Admitted As Inpatient Discharge Instructions Interventions: ED Discharge Assessment Last Done: 03/30/20 05:56
[2020-03-30 02:36] LABS: Basophils # (auto) 0.02 K/uL (0-0.2); Basophils % (auto) 0.2 %; Eosinophils # (auto) 0.05 K/uL (0-0.5); Eosinophils % (auto) 0.4 %; Hematocrit (blood only) 43.6 % (42-52); Hemoglobin 13.6 g/dL (14.0-18.0); Immature Granulocytes # (auto) 0.05 K/uL (0.00-0.02); Immature Granulocytes % (auto) 0.4 %; Lymphocytes # (auto) 1.41 K/uL (1.2-3.4); Mean Corpuscular Hemoglobin 27.9 pg (25-34); Mean Corpuscular Hgb Conc 31.2 g/dL (32-36); Mean Corpuscular Volume 89.3 fL (80-100); Mean Platelet Volume 9.4 fL (7.4-10.4); Monocytes # (auto) 0.68 K/uL (0.11-0.59); Monocytes % (auto) 5.8 %; Neutrophils # (auto) 9.51 K/uL (1.4-6.5); Neutrophils % (auto) 81.2 %; Platelet Count 203 K/uL (130-400); RDW Coefficient of Variation 16.6 % (11.5-14.5); RDW Standard Deviation 54.2 fL (36.4-46.3); Red Blood Count 4.88 M/uL (4.7-6.1); White Blood Count 11.72 K/uL (4.8-10.8)
[2020-03-30 02:52] LABS: Alanine Aminotransferase 25 U/L (12-78); Albumin Level 2.9 gm/dl (3.4-5.0); Aspartate Aminotransferase 13 U/L (15-37); BUN Creatinine Ratio 12.5 (10-20); Bilirubin Direct 0.2 mg/dl (0-0.2); Blood Urea Nitrogen 33 mg/dl (7-18); Calcium 9.9 mg/dl (8.5-10.1); Carbon Dioxide 27 mmol/L (21-32); Chloride 107 mmol/L (98-107); Est GFR (African American) 27.5; Est GFR (Non-African American) 23.8; Glucose 247 mg/dl (70-99); Lipase 125 U/L (73-393); Potassium 4.5 mmol/L (3.5-5.1); Sodium 143 mmol/L (136-145)
[2020-03-30 02:55] LABS: Alkaline Phosphatase 104 U/L (45-117); Bilirubin,Total 0.6 mg/dl (0.2-1); Total Protein 7.3 gm/dl (6.4-8.2)
[2020-03-30] MEDS ORDERED: HYDROmorphone INJ 0.5 MG/0.5 ML SYR IV STA (02:57)
[2020-03-30] MEDS ORDERED: GI COCKTAIL ED USE PO ONE (03:11)
[2020-03-30 03:52] LABS: Troponin I < 0.015 ng/ml (0-0.045)
[2020-03-30 04:18] LABS: Appearance Urine Turbid (Clear); Bacteria Urine Automated Negative (Negative); Bilirubin Urine Negative (Negative); Blood Urine 3+ (Negative); Color Urine Orange; Glucose Urine UA 2+ (Negative); Ketones Urine Trace (Negative); Leukocyte Esterase Urine 2+ (Negative); Nitrite Urine Positive (Negative); Protein Urine 3+ (Negative); RBC Urine Automated >30 /hpf (0-4); Specific Gravity Urine 1.026 (1.000-1.030); Urobilinogen Urine Negative (Negative); WBC Urine Automated >30 /hpf (0-5); pH Urine 6.5 (4.5-7.5)
[2020-03-30] MEDS ORDERED: cefTRIAXone SODIUM 2,000 MG/70 ML BAG IV STA (04:47)
[2020-03-30] MEDS ORDERED: LORazepam 0.5 MG/1 ML VIAL IV STA (04:53)
--- NOTE | 2020-03-30 05:38 | History & Physical Report ---
Date of Service March 30, 2020 Assessment & Plan (1) Nausea vomiting and diarrhea: Concern for small bowel obstruction. Patient is markedly distended, tympanic to percussion. There are multiple air-fluid levels noted on CT. Admit to medical floor NG tube placement to low intermittent suction Encourage ambulation with assistance as needed IV fluid and electrolyte repletion Await formal read on CT abdomen KUB in a.m. Zofran as needed for nausea Morphine as needed for pain Present on Admission?: Yes (2) UTI (urinary tract infection): Patient with recent ureteral stent placement. Complaining of significant dysuria. UA is dirty (5-10 epithelial cells), possibly inflammatory findings after stent placement. Nitrites present. Ceftriaxone 2 g IV daily Follow culture Present on Admission?: Yes (3) Kidney stone on left side: Noted. Stent in place Continue to monitor Continue oxybutynin as needed for bladder spasm Present on Admission?: Yes (4) Chronic kidney disease: BUN and creatinine near baseline. Patient urinating without difficulty Avoid nephrotoxic agents Renal dosing were appropriate Continue to monitor BUN, creatinine, electrolytes and urine output Present on Admission?: Yes (5) Diabetic peripheral neuropathy: Chronic. Stable. Continue gabapentin 300 mg p.o. twice daily Present on Admission?: Yes (6) Dyslipidemia: Chronic. Continue rosuvastatin 40 mg p.o. daily Present on Admission?: Yes (7) Diabetes mellitus: Patient with diabetes. Recently started on Levemir 5 units every afternoon. Blood sugar is elevated today at 247. Last hemoglobin A1c on 02/03/2020 = 7.9 Continue Trulicity Lantus 5 units twice daily with insulin sliding scale, goal blood sugar 100-1 40 Hold oral agents, glimepiride and metformin Present on Admission?: Yes (8) Enlarged prostate with lower urinary tract symptoms (LUTS): Patient reports difficulty starting urinary stream as well as dysuria Continue finasteride Present on Admission?: Yes (9) Obstructive sleep apnea of adult: Noted. Patient does not wear CPAP Present on Admission?: Yes (10) CAD (coronary artery disease): Continue aspirin 81 mg p.o. daily Continue Plavix 75 mg p.o. daily Continue metoprolol 100 mg p.o. twice daily Continue Crestor 40 mg p.o. daily Consider low-dose CAR inhibitor Present on Admission?: Yes (11) Hypertension: Blood pressure = 140/94 Continue metoprolol Continue to monitor Present on Admission?: Yes (12) Depression: Chronic. Continue Wellbutrin 150 mg p.o. twice daily Present on Admission?: Yes (13) COPD (chronic obstructive pulmonary disease): Chronic. Stable. Patient denies cough, shortness of breath or wheeze Continue duo nebs as needed FENIV fluids at 100 mL/h x 2 L, electrolytes within normal limits, continue to monitor, n.p.o. for now ProphylaxisLovenox Codefull Dispositionadmit to medical floor Present on Admission?: Yes History of Present Illness Chief Complaint: Nausea, vomiting, diarrhea, abdominal pain Primary Care Provider: NO PCP Adonis Stephenson is a 69-year-old male with multiple medical problems presenting with acute onset of large-volume watery diarrhea, nausea and vomiting. Symptoms began acutely yesterday afternoon. Question of feculent vomitus. Also with abdominal distention and bloating. Patient also reports blood in urine as well as dysuria. No additional complaints at this time. No concern for exposure to COVID-19. Patient is passing flatus. Last bowel movement 0100. ER course: Maalox, ceftriaxone, fentanyl, Zofran, Dilaudid Allergies Allergy/AdvReac Type Severity Reaction Status Date / Time azithromycin AdvReac Intermediate diarrhea Verified 03/26/20 13:22 Home Medications Home Medications Medication Instructions Recorded Confirmed Type cholecalciferol (vitamin D3) 1,000 unit PO BID 08/22/18 03/30/20 History [Vitamin D3] nitroglycerin [Nitrostat] 0.4 mg SUBLINGUAL UD PRN 08/22/18 03/30/20 History aspirin [Aspir-81] 81 mg PO QPM #0 tab 09/14/18 03/30/20 Rx ipratropium 0.5 mg-albuterol 3 mg 3 ml INHALATION QID PRN #180 ml 04/09/19 03/30/20 Rx (2.5 mg base)/3 mL nebulization soln finasteride 5 mg tablet 5 mg PO QAM #90 tab 09/03/19 03/30/20 Rx pen needle, diabetic 31 gauge x #50 ea 11/04/19 03/26/20 Rx 3/16" clopidogrel 75 mg tablet 75 mg PO DAILY #90 tab 01/21/20 03/30/20 Rx blood sugar diagnostic #50 ea 02/19/20 03/26/20 Rx lancets 33 gauge #100 ea 02/19/20 03/26/20 Rx metoprolol tartrate 100 mg tablet 100 mg PO BID #180 tab 02/19/20 03/30/20 Rx rosuvastatin 40 mg tablet 40 mg PO DAILY #90 tab 02/19/20 03/30/20 Rx acetaminophen 650 mg PO TID #30 tab 03/07/20 03/30/20 Rx oxybutynin chloride 5 mg PO TID PRN #30 tab 03/07/20 03/30/20 Rx oxycodone 5 mg PO Q4 PRN #20 tab 03/07/20 03/30/20 Rx furosemide 20 mg tablet 20 mg PO DAILY PRN 03/20/20 03/30/20 History gabapentin 300 mg capsule 300 mg PO BID 03/20/20 03/30/20 History potassium citrate 15 mEq (1,620 15 meq PO BID #60 tab 03/20/20 03/30/20 Rx mg) tablet,extended release dulaglutide 1.5 mg/0.5 mL 1.5 mg SQ .COMPLEX #2 ml 03/25/20 03/30/20 Rx subcutaneous pen injector glimepiride 2 mg tablet 3 mg PO BID #180 tab 03/25/20 03/30/20 Rx metformin 500 mg tablet 500 mg PO BID #60 tab 03/25/20 03/30/20 Rx insulin detemir U-100 100 unit/mL 5 units SQ QPM #3 ml 03/26/20 03/30/20 Rx (3 mL) subcutaneous pen pen needle, diabetic 32 gauge x #100 ea 03/26/20 03/26/20 Rx 5/32" bupropion HCl 150 mg PO BID 03/30/20 03/30/20 History Past Med/Surg History Medical History (Updated 03/30/20 @ 05:32 by Brunilda King DO) BPH (benign prostatic hyperplasia) CAD (coronary artery disease) Acute [place] 03/2011, complicated by 3 episodes of v fib requiring electrical shock- ZITA x2 COPD (chronic obstructive pulmonary disease) Severe, per pulm- 2L N/C prn (per patient, typically uses rarely/monthly) Diabetes mellitus GERD (gastroesophageal reflux disease) Hypertension Hypophosphatemia Nephrolithiasis Obstructive sleep apnea of adult no device. patient refuses CPAP Peripheral neuropathy Surgical History History of bilateral cataract extraction History of cardiac cath 2011- stents x2 History of carpal tunnel release right History of colonoscopy Colonoscopy: 03/18/19: MAC sedation at [facility] History of lithotripsy Left ESWL: 09/14/18[place] [place] [facility] [place] at time: 135.1kg) History of lithotripsy Left ESWL 06/07/19 [facility] History of tooth extraction Hx of transurethral resection of prostate S/P cystoscopy with ureteral stent placement 08/23/2018. MAC. No issues. Social History Smoking Status: Former smoker Tobacco Type: Cigarettes Cigarettes Per Day: 40; Number of Years Since Quit: 2; Second Hand Exposure: No; Hx Alcohol Use: No Hx Substance Use: No Preferred Language: [place] Communication Ability: Effective Visual Impairment: No Limitations Hearing Ability: Normal Big Data Software Engineer Required: No Beliefs That Will Affect Care: None marital status: Current Living Situation: Spouse Feels Safe at Home: Yes Dental Care, Regularly: Yes Seatbelt Use: sometimes Review of Systems Review of Systems: All systems reviewed & are unremarkable except as noted in HPI & below Physical Exam Physical Exam: General: patient resting comfortably, NAD, non-toxic in appearance, AA&O x 4 Skin: warm, dry, intact, redness of bilateral lower extremities with changes of chronic venous stasis HEENT: NC/AT, PERRL, EOMI, anicteric sclera, conjunctiva without injection, external ear normal to inspection and nontender, nares patent, moist mucus membranes, dentition intact, no oropharyngeal lesions, neck supple, trachea midline, no LAD, no thyromegaly, no JVD Heart: +S1/S2, regular, no m/r/g Lungs: equal air entry bilaterally, no rales/rhonchi/wheezes Abd: Diminished BS, soft, distended, tympanic to percussion, nontender, no masses/organomegaly/ascites Ext: warm, 2+ pulses in UE/LE bilaterally, no clubbing/cyanosis, 2+ edema with skin changes consistent with chronic venous stasis Neuro: nonfocal, patient AA&O x 4, speech intact, no facial droop, moving all extremities on command with equal strength 5/5 Results & Data Results & Data ([facility]) Vital Signs (Past 12 Hours) Vital Signs Temp Pulse Resp BP Pulse Ox 03/30/20 04:00 98 H 17 140/94 03/30/20 03:51 102 H 20 150/90 H 03/30/20 03:06 98 H 18 131/88 98 03/30/20 03:00 98 H 12 155/105 H 97 03/30/20 02:42 96 H 16 156/104 H 97 03/30/20 01:57 36.9 C 98 H 20 148/86 H 95 Laboratory Results Lab Results 03/30/20 03/30/20 03/30/20 Range/Units 02:25 02:25 03:48 WBC 11.72 H (4.8-10.8) K/uL RBC 4.88 (4.7-6.1) M/uL Hgb 13.6 L (14.0-18.0) g/dL Hct 43.6 (42-52) % MCV 89.3 (80-100) fL MCH 27.9 (25-34) pg MCHC 31.2 L (32-36) g/dL RDW Std Deviation 54.2 H (36.4-46.3) fL RDW Coeff of Cirilo 16.6 H (11.5-14.5) % Plt Count 203 (130-400) K/uL MPV 9.4 (7.4-10.4) fL Immature Gran % (Auto) 0.4 % Neut % (Auto) 81.2 % Lymph % (Auto) 12.0 % [place] % (Auto) 5.8 % Eos % (Auto) 0.4 % Baso % (Auto) 0.2 % Neut # (Auto) 9.51 H (1.4-6.5) K/uL Lymph # (Auto) 1.41 (1.2-3.4) K/uL [place] # (Auto) 0.68 H (0.11-0.59) K/uL Eos # (Auto) 0.05 (0-0.5) K/uL Baso # (Auto) 0.02 (0-0.2) K/uL Immature Gran # (Auto) 0.05 H (0.00-0.02) K/uL Sodium 143 (136-145) mmol/L Potassium 4.5 (3.5-5.1) mmol/L Chloride 107 (98-107) mmol/L Carbon Dioxide 27 (21-32) mmol/L Anion Gap 9.0 (3-11) BUN 33 H (7-18) mg/dl Creatinine 2.66 H (0.6-1.4) mg/dl Est Cr Clr Drug Dosing Not Reportable Est GFR ( Amer) 27.5 Est GFR (Non-Af Amer) 23.8 BUN/Creatinine Ratio 12.5 (10-20) Glucose 247 H (70-99) mg/dl Calcium 9.9 (8.5-10.1) mg/dl Magnesium 2.0 (1.8-2.4) mg/dl Total Bilirubin 0.6 (0.2-1) mg/dl Direct Bilirubin 0.2 (0-0.2) mg/dl AST 13 L (15-37) U/L ALT 25 (12-78) U/L Alkaline Phosphatase 104 (45-117) U/L Troponin I < 0.015 (0-0.045) ng/ml Total Protein 7.3 (6.4-8.2) gm/dl Albumin 2.9 L (3.4-5.0) gm/dl Lipase 125 (73-393) U/L Urine Color [place] Urine Appearance Turbid A (Clear) Urine pH 6.5 (4.5-7.5) Ur Specific [place] 1.026 (1.000-1.030) Urine Protein 3+ H (Negative) Urine Glucose (UA) 2+ H (Negative) Urine Ketones Trace H (Negative) Urine Blood 3+ H (Negative) Urine Nitrite Positive A (Negative) Urine Bilirubin Negative (Negative) Urine Urobilinogen Negative (Negative) Ur Leukocyte Esterase 2+ H (Negative) Urine WBC (Auto) >30 H (0-5) /hpf Urine RBC (Auto) >30 H (0-4) /hpf U Hyaline Cast (Auto) 1-5 (0-5) /lpf U Epithel Cells (Auto) 5-10 H (0-5) /lpf Urine Bacteria (Auto) Negative (Negative) Diagnostic Findings Abdomen and pelvis without contrast: Comparison 03/05/2020. Per stat readleft posterior medial subpleural 7 cm [place] unchanged from prior exam. Adjacent basilar scarring. Mild right coronary calcification. Fatty liver. Multiple dependent layering gallbladder stones. Punctate upper pole splenic calcified granuloma. Right adrenal 4.5 cm mass with focal fat at its medial upper pole. 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 No change from prior. Interval placement of left-sided double-J ureteral stent. Left kidney mid to lower pole stone around the pigtail catheter. Additional small stone in the more inferior aspect of the lower pole, mild left renal pelvis. Distal end of the stent is within the bladder. No bladder stones are identified. Mesenteric lipomatosis. Distended loops of small bowel without signs of obstruction. Status post cholecystectomy. Midline anterior abdominal wall periumbilical hernia. Right inguinal fat-containing hernia. Small left inguinal fat-containing hernia. Mild right sacroiliitis and convex left curvature of the lumbar spine apex at L3. Summary: Interval left- sided double-J ureteral stent in satisfactory position. Persistent left nephrolithiasis and additional stones at the left renal pelvis. ECG Additional Comments: At 99 bpm. Left axis deviation. PA = 142, QRS = 76, QTc = 444. No acute ischemic changes. Question of old inferior infarct. Code Status & VTE Plan Code Status Full code VTE Prophylaxis Plan VTE Prophylaxis will be ordered: Yes PG Care Time/CCT Total # of Minutes Spent Total Time Spent with Patient: Total time spent is greater than 50% in co ordination of care (as documented) at patient's floor/unit and/or counseling patient: Coding Level of Care Code 24383 Initial Inpt Care Lvl 3 Diagnoses Nausea vomiting and diarrhea R11.2; R19.7 UTI (urinary tract infection) N39.0; R31.9 Urinary tract infection type: site unspecified Hematuria presence: with hematuria Kidney stone on left side N20.0 Chronic kidney disease N18.9 Chronic kidney disease stage: unspecified stage Diabetic peripheral neuropathy E11.42 Dyslipidemia E78.5 Diabetes mellitus E11.22; N18.4 Diabetes mellitus type: type 2 Diabetes mellitus fdc insulin use: without fdc use Diabetes mellitus complication status: with kidney complications Diabetes mellitus complication detail: with chronic kidney disease Chronic kidney disease stage: stage 4 (severe) Enlarged prostate with lower urinary tract symptoms (LUTS) N40.1; R39.12 Lower urinary tract symptom detail: weak urinary stream Obstructive sleep apnea of adult G47.33 CAD (coronary artery disease) I25.10 Coronary Disease-Associated Artery/Lesion type: [place] artery [place] vs. transplanted heart: [place] heart Associated angina: without angina Hypertension I10 Hypertension type: essential hypertension Depression F32.9 Depression Type: unspecified COPD (chronic obstructive pulmonary disease) J43.9 COPD type: emphysema Emphysema type: unspecified (1) Chronic kidney disease Chronic kidney disease stage: unspecified stage Qualified Code(s): N18.9 - Chronic kidney disease, unspecified (2) Enlarged prostate with lower urinary tract symptoms (LUTS) Lower urinary tract symptom detail: weak urinary stream Qualified Code(s): N40.1 - Benign prostatic hyperplasia with lower urinary tract symptoms; R39.12 - Poor urinary stream (3) CAD (coronary artery disease) Coronary Disease-Associated Artery/Lesion type: [place] artery [place] vs. transplanted heart: [place] heart Associated angina: without angina Qualified Code(s): I25.10 - Atherosclerotic heart disease of [place] coronary artery without angina pectoris (4) Hypertension Hypertension type: essential hypertension Qualified Code(s): I10 - Essential (primary) hypertension (5) Depression Depression Type: unspecified Qualified Code(s): F32.9 - Major depressive disorder, single episode, unspecified (6) COPD (chronic obstructive pulmonary disease) COPD type: emphysema Emphysema type: unspecified Qualified Code(s): J43.9 - Emphysema, unspecified (7) UTI (urinary tract infection) Urinary tract infection type: site unspecified Hematuria presence: with hematuria Qualified Code(s): N39.0 - Urinary tract infection, site not specified; R31.9 - Hematuria, unspecified (8) Diabetes mellitus Diabetes mellitus type: type 2 Diabetes mellitus oil heaterman insulin use: without oil heaterman use Diabetes mellitus complication status: with kidney complications Diabetes mellitus complication detail: with chronic kidney disease Chronic kidney disease stage: stage 4 (severe) Qualified Code(s): E11.22 - Type 2 diabetes mellitus with diabetic chronic kidney disease; N18.4 - Chronic kidney disease, stage 4 (severe)
[2020-03-30] MEDS ORDERED: ONDANSETRON INJ 2 MG/ML 2 ML VIAL IV PRN (06:36)
[2020-03-30] MEDS ORDERED: GLUCOSE 40% GEL 15 GM TUBE PO PRN (06:36)
[2020-03-30] MEDS ORDERED: GLUCOSE 10 TABS/TUBE PO PRN (06:36)
[2020-03-30] MEDS ORDERED: OXYCODONE HCL IR 5 MG TAB (IMMEDIATE RELEASE) PO PRN (06:36)
[2020-03-30] MEDS ORDERED: ALBUT/IPRATROP 3MG/0.5MG NEB 3 ML VIAL INH PRN (06:36)
[2020-03-30] MEDS ORDERED: GLUCAGON FOR INJ 1 MG VIAL SQ PRN (06:36)
[2020-03-30] MEDS ORDERED: DEXTROSE 50% 50 ML SYRINGE IV PRN (06:36)
[2020-03-30] MEDS ORDERED: CARBOHYDRATES FOR HYPOGLYCEMIA PO PRN (06:36)
[2020-03-30] MEDS ORDERED: MoRPHine SULFATE 2 MG/ML CARP IV PRN (06:36)
[2020-03-30] MEDS ORDERED: OXYBUTYNIN CHLORIDE 5 MG TAB PO PRN (06:36)
[2020-03-30] MEDS ORDERED: PATIENT'S HEIGHT AND/OR WEIGHT NEEDED SCH (07:00)
[2020-03-30] MEDS: LACTATED RINGER'S 1,000 ML IV SCH ×2 (07:47→17:33)
--- NOTE | 2020-03-30 08:08 | CT Scan Report ---
CT SCAN OF THE ABDOMEN AND PELVIS WITHOUT CONTRAST CLINICAL HISTORY: Diffuse abdominal pain, nausea, vomiting, diarrhea. COMPARISON STUDY: 03/05/2020 TECHNIQUE: CT scan of the abdomen and pelvis was performed from the lung bases to the proximal femurs . Images are reviewed in the axial, sagittal, and coronal planes. IV contrast was not administered fo r this examination. A dose lowering technique was utilized adhering to the principles of ALARA. CT DOSE: 1974.45 mGy.cm FINDINGS: Lower chest: There is a 7 cm left lower lobe bulla. Since the prior study, the patient has developed patchy groundglass opacities within the right middle lobe and left lower lobe likely infectious/infla mmatory. Liver: There is hepatic steatosis. There is focal fatty sparing adjacent to the gallbladder fossa Gallbladder: Cholelithiasis Spleen: Normal in size and attenuation. Pancreas: Unremarkable. Adrenal glands: This 41 mm right adrenal mass containing macroscopic fat suggesting a myelolipoma Kidneys: There is left-sided nephrolithiasis. There is an indwelling left-sided nephroureteral stent. There is mild left-sided ureteral edema. There are multiple calculi at the level the left renal UPJ. Bowel: There are fluid-filled loops of large and small bowel with multiple air-fluid levels. A discre te transition zone is not visualized. The findings are consistent with fatty enteritis/diarrheal illn ess. There is no evidence of acute diverticulitis. There is no evidence of acute appendicitis. Peritoneum: There is no intraperitoneal free air or abdominal ascites. There is a fat-containing umbi lical hernia. There is a fat-containing right inguinal hernia Vasculature: The abdominal aorta is normal in course and caliber. Adenopathy: None. Pelvic viscera: The bladder, and pelvic viscera are unremarkable. Skeletal structures: No destructive osseous lesions are seen. IMPRESSION: 1. No evidence of bowel obstruction. No evidence of free air 2. Cholelithiasis. 3. Fluid-filled loops of large and small bowel with multiple air-fluid levels. The findings are consi stent with a diarrheal illness/enteritis 4. Left-sided nephrolithiasis. Left-sided nephroureteral stent. Mild left-sided periureteral edema 5. 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 Fat-containing right inguinal hernia. Fat-containing umbilical hernia. 7. Interval development of patchy groundglass opacities within the left lower lobe and right middle l obe, likely infectious/inflammatory ACT 112: Negative or not required by law. Electronically signed by: Rian Hess M.D. 03/30/2020 8:07 AM
[2020-03-30] MEDS: GABAPENTIN 300 MG CAP PO SCH ×2 (08:47→21:04)
[2020-03-30] MEDS: METOPROLOL TARTRATE 100 MG TAB PO SCH ×2 (08:47→21:04)
[2020-03-30] MEDS: ROSUVASTATIN CALCIUM 20 MG TAB PO SCH (08:47)
[2020-03-30] MEDS: CLOPIDOGREL BISULFATE 75 MG TAB PO SCH (08:48)
[2020-03-30] MEDS: CHOLECALCIFEROL 1,000 UNITS 25 MCG TAB PO SCH ×2 (08:48→21:03)
[2020-03-30] MEDS: FINASTERIDE 5 MG TAB PO SCH (08:48)
[2020-03-30] MEDS: BuPROPion SR 150 MG TABCR PO SCH ×2 (08:48→21:04)
[2020-03-30] MEDS: ACETAMINOPHEN 325 MG TAB PO SCH ×3 (08:53→21:09)
[2020-03-30] MEDS: INSULIN GLARGINE SOLOSTAR 100 UNITS/ML 3 ML PEN SC SCH ×2 (08:54→21:05)
[2020-03-30] MEDS: INSULIN ASPART 100 UNITS/ML 3 ML PEN SC SCH ×4 (08:56→21:06)
[2020-03-30] MEDS: ENOXAPARIN INJ 40 MG/0.4 ML SYR SQ SCH ×2 (09:11→20:56)
--- NOTE | 2020-03-30 10:51 | Medical Student Progress Note ---
Date of Service March 30, 2020 Assessment & Plan (1) Nausea vomiting and diarrhea: Mr Stephenson is a 69 y/o M with a PMH of CKD, DM2, CAD, GERD, HTN who presented to the ED with nausea, vomiting, and diarrhea this morning who is now feeling "100% better" after recieiving medication and NG tube placement. Patient says they are feeling baseline. Patient is tympanic to percussion and there are multiple air-fluid levels noted on CT, but no evidence of small bowel obstruction on CT. Turn off NG tube but do not remove, attempt clear liquid diet and epand to foods if well tolerated. Encourage ambulation with assistance as needed IV fluid and electrolyte repletion Abdominal CT shows no small bowel obstruction Zofran as needed for nausea Morphine as needed for pain (2) UTI (urinary tract infection): Patient with recent ureteral stent placement. Complaining of significant dysuria. UA is dirty (5-10 epithelial cells), possibly inflammatory findings after stent placement. Nitrites present. Ceftriaxone 2 g IV daily Follow culture Hematuria presence: with hematuria Urinary tract infection type: site unspecified Qualified Code(s): N39.0 - Urinary tract infection, site not specified; R31.9 - Hematuria, unspecified (3) Kidney stone on left side: Noted. Stent in place Continue to monitor Continue oxybutynin as needed for bladder spasm (4) Chronic kidney disease: BUN and creatinine near baseline. Patient urinating without difficulty Avoid nephrotoxic agents Renal dosing were appropriate Continue to monitor BUN, creatinine, electrolytes and urine output Chronic kidney disease stage: unspecified stage Qualified Code(s): N18.9 - Chronic kidney disease, unspecified (5) Diabetic peripheral neuropathy: Chronic. Stable. Continue gabapentin 300 mg p.o. twice daily (6) Dyslipidemia: Chronic. Continue rosuvastatin 40 mg p.o. daily (7) Diabetes mellitus: Patient with diabetes. Recently started on Levemir 5 units every afternoon. Blood sugar is elevated today at 247. Last hemoglobin A1c on 02/03/2020 = 7.9 Continue Trulicity Lantus 5 units twice daily with insulin sliding scale, goal blood sugar 100-1 40 Hold oral agents, glimepiride and metformin Chronic kidney disease stage: stage 4 (severe) Diabetes mellitus complication detail: with chronic kidney disease Diabetes mellitus complication status: with kidney complications Diabetes mellitus intermediate insulin use: without intermediate use Diabetes mellitus type: type 2 Qualified Code(s): E11.22 - Type 2 diabetes mellitus with diabetic chronic kidney disease; N18.4 - Chronic kidney disease, stage 4 (severe) (8) Enlarged prostate with lower urinary tract symptoms (LUTS): Patient reports difficulty starting urinary stream as well as dysuria Continue finasteride Lower urinary tract symptom detail: weak urinary stream Qualified Code(s): N40.1 - Benign prostatic hyperplasia with lower urinary tract symptoms; R39.12 - Poor urinary stream (9) Obstructive sleep apnea of adult: Noted. Patient does not wear CPAP (10) CAD (coronary artery disease): Continue aspirin 81 mg p.o. daily Continue Plavix 75 mg p.o. daily Continue metoprolol 100 mg p.o. twice daily Continue Crestor 40 mg p.o. daily Consider low-dose CAR inhibitor Associated angina: without angina Coronary Disease-Associated Artery/Lesion type: belk[place]ski artery [place] vs. transplanted heart: belkofski heart Qualified Code(s): I25.10 - Atherosclerotic heart disease of belk[place]ski coronary artery without angina pectoris (11) Hypertension: Blood pressure = 140/94 Continue metoprolol Continue to monitor Hypertension type: essential hypertension Qualified Code(s): I10 - Essential (primary) hypertension (12) Depression: Chronic. Continue Wellbutrin 150 mg p.o. twice daily Depression Type: unspecified Qualified Code(s): F32.9 - Major depressive disorder, single episode, unspecified (13) COPD (chronic obstructive pulmonary disease): Chronic. Stable. Patient denies cough, shortness of breath or wheeze Continue duo nebs as needed FENIV fluids at 100 mL/h x 2 L, electrolytes within normal limits, continue to monitor, n.p.o. for now ProphylaxisLovenox Codefull Dispositionadmit to medical floor COPD type: emphysema Emphysema type: unspecified Qualified Code(s): J43.9 - Emphysema, unspecified Supervising Attestation I personally examined the patient and verified all dooley points of history and exam, discussed case, and agree with decision making with Swapnil Olvera MS3. feeling better belly feeling better, one more episode of diarrhea since this morning - watery- but otherwise much improved. no nausea. NGT has been off suction for about 90mins when i see him. does have dysuria and a little worse straining to void but no rectal pressure. present - answered all questions to the best of my ability and to pt/'s satisfaction diarrhea - initially concern on SBO but after further review seems more c/w short-lived nonspecific enteritis which has since started to improve. NGT off suction - if no worse of sx can dc NGT and start clears - advance quickly to regular food dysuria - have to assume UTI - rocephin pending culture. given worse hesistancy - probably stent related but if persists after stent removed then would have to consider prostatitis as well (although seems clinically less likely) otherwise as above Subjective Mr. Stephenson is a 69 y/o with a significant PMH of CKD, DM2, CAD, GERD, HTN, SREEKANTH, Dyslipidemia, and COPD, He was recently discharged from hospitalization for left renal stones and stent placement, who pressented to the ED this morning for vomiting/nausea, and diarrhea. He was given maalox, ceftraixone, fetynal, and zofran in the ED and placed in patient with a NG tube. On today's Presentation he says he "feels 100%" and has no vomiting/nausea. He has not had a BM since 1am but has passed lots of gas. He has back pain most likely due to the kidney stone, has been urinating, and feels hungry/thirsty this morning. He says he felt much better after the NG tube was placed although he would like it removed as soon as possible. Review of Systems Gastrointestinal: + constipation (no BM since 1am); no abdominal pain, no nausea and no diarrhea/loose stools (last bowel movement was 1am and was watery) Genitourinary: + dysuria and + flank pain Physical Exam Constitutional: WD/WN, vitals as above Eyes: no scleral abnormality Respiratory: normal respiratory effort, lungs clear to auscultation Cardiovascular: Rate/Rhythm: regular rate and regular rhythm Heart Sounds: normal S1 and normal S2 Gastrointestinal (Abdomen): Inspection/Auscultation: + abdomen distended (patient says this is normal) and + hypoactive bowel sounds (Lower quadrants have more bowel sounds than upper, both are hypoactive) Percussion/Palpation: abdomen nontender, no guarding and abdomen not rigid Skin: + dry skin (only feet/ankles) Psychiatric: Orientation: alert and oriented x 3 Results & Data ([facility]) Vital Signs (Past 12 Hours) Vital Signs Temp Pulse Pulse Resp BP BP Pulse Ox 03/30/20 07:01 36.6 C 96 H 16 139/89 96 03/30/20 06:10 36.8 C 82 20 149/90 H 97 03/30/20 05:00 100 H 24 143/85 H 97 03/30/20 04:30 95 H 16 151/84 H 97 03/30/20 04:00 98 H 17 140/94 03/30/20 03:51 102 H 20 150/90 H 03/30/20 03:06 98 H 18 131/88 98 03/30/20 03:00 98 H 12 155/105 H 97 03/30/20 02:42 96 H 16 156/104 H 97 03/30/20 01:57 36.9 C 98 H 20 148/86 H 95
[2020-03-30] MEDS ORDERED: Nursing to Pharmacy Communication SCH ×2 (14:15→17:00)
--- NOTE | 2020-03-30 17:49 | Electrocardiogram Report ---
Test Reason : Blood Pressure : / mmHG Vent. 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
[2020-03-30] MEDS ORDERED: INSULIN ASPART 100 UNITS/ML 3 ML PEN SC SCH (18:00)
[2020-03-30] MEDS ORDERED: MELATONIN 3 MG TAB PO PRN (18:13)
[2020-03-30] MEDS ORDERED: ASPIRIN 81 MG ECTAB PO SCH (21:00)
[2020-03-31] MEDS ORDERED: COUGH DROP (SUGAR FREE) LOZ 24 LOZ/1 BOX BUCCAL ONE (02:33)
[2020-03-31 05:53] LABS: Basophils # (auto) 0.02 K/uL (0-0.2); Basophils % (auto) 0.4 %; Eosinophils # (auto) 0.32 K/uL (0-0.5); Hemoglobin 12.1 g/dL (14.0-18.0); Immature Granulocytes # (auto) 0.04 K/uL (0.00-0.02); Immature Granulocytes % (auto) 0.8 %; Lymphocytes # (auto) 1.05 K/uL (1.2-3.4); Lymphocytes % (auto) 19.8 %; Mean Corpuscular Hemoglobin 27.6 pg (25-34); Mean Corpuscular Hgb Conc 30.3 g/dL (32-36); Mean Corpuscular Volume 91.1 fL (80-100); Mean Platelet Volume 9.3 fL (7.4-10.4); Monocytes # (auto) 0.62 K/uL (0.11-0.59); Monocytes % (auto) 11.7 %; Neutrophils # (auto) 3.24 K/uL (1.4-6.5); Neutrophils % (auto) 61.3 %; Platelet Count 151 K/uL (130-400); RDW Coefficient of Variation 16.7 % (11.5-14.5); RDW Standard Deviation 55.6 fL (36.4-46.3); Red Blood Count 4.39 M/uL (4.7-6.1); White Blood Count 5.29 K/uL (4.8-10.8)
[2020-03-31] MEDS ORDERED: cefTRIAXone SODIUM 2,000 MG in DEXTROSE 5% 50 ML IV SCH (06:00)
[2020-03-31 06:30] LABS: BUN Creatinine Ratio 12.4 (10-20); Calcium 8.9 mg/dl (8.5-10.1); Est GFR (African American) 31.8; Est GFR (Non-African American) 27.5
--- NOTE | 2020-03-31 08:32 | XRay Report ---
XR KUB/Abdomen 1 view CLINICAL HISTORY: ?obstruction COMPARISON STUDY: 03/24/2020 FINDINGS: Unchanged position of a left ureteral stent. Bowel pattern suggests developing ileus. There are no secondary signs of free air. IMPRESSION: 1. Nonobstructive ileus. Left ureteral stent in good position. Poor visibility of the renal shadows d ue to overlying bowel content. ACT 112: Negative or not required by law. The above report was generated using voice recognition software. It may contain grammatical, syntax or spelling errors. Electronically signed by: Francisco Saez M.D. 03/31/2020 8:31 AM
[2020-03-31] MEDS: INSULIN GLARGINE SOLOSTAR 100 UNITS/ML 3 ML PEN SC SCH (08:40)
[2020-03-31] MEDS: INSULIN ASPART 100 UNITS/ML 3 ML PEN SC SCH ×4 (08:41→17:24)
[2020-03-31] MEDS: CHOLECALCIFEROL 1,000 UNITS 25 MCG TAB PO SCH (08:44)
[2020-03-31] MEDS: GABAPENTIN 300 MG CAP PO SCH (08:44)
[2020-03-31] MEDS: BuPROPion SR 150 MG TABCR PO SCH (08:44)
[2020-03-31] MEDS: METOPROLOL TARTRATE 100 MG TAB PO SCH (08:44)
[2020-03-31] MEDS: ENOXAPARIN INJ 40 MG/0.4 ML SYR SQ SCH (08:45)
[2020-03-31] MEDS: ROSUVASTATIN CALCIUM 20 MG TAB PO SCH (08:45)
[2020-03-31] MEDS: FINASTERIDE 5 MG TAB PO SCH (08:45)
[2020-03-31] MEDS: CLOPIDOGREL BISULFATE 75 MG TAB PO SCH (08:46)
[2020-03-31] MEDS: ACETAMINOPHEN 325 MG TAB PO SCH ×2 (08:48→13:12)
--- NOTE | 2020-03-31 16:50 | Med Student Discharge Summary ---
Date of Service March 31, 2020 Admission HPI Per Admitting Provider Adonis Stephenson is a 69-year-old male with multiple medical problems presenting with acute onset of large-volume watery diarrhea, nausea and vomiting. Symptoms began acutely yesterday afternoon. Question of feculent vomitus. Also with abdominal distention and bloating. Patient also reports blood in urine as well as dysuria. No additional complaints at this time. No concern for exposure to COVID-19. Patient is passing flatus. Last bowel movement 0100. ER course: Maalox, ceftriaxone, fentanyl, Zofran, Dilaudid Discharge Review of Systems: Feeling baseline today, tolerating solid food, no nausea, 1 episode of diarrhea last evening, no belly pain or discomfort, passing lots of gas. Discharge Physical Exam: Cardiac: Normal rate/rhythm, no gallops, rubs or mumurs, normal S1/S2 appreciated, no edema Pulm: Normal breathing rate, no rales, rhonci or wheeze GI: Bowel sounds slightly reduced, heard through all 4 quadrants, no pain to shallow or deep palpation, umbilical hernia appreciated Admission Exam (Per Admitting) Constitutional WD/WN, vitals as above Eyes no scleral abnormality Respiratory normal respiratory effort, lungs clear to auscultation Cardiovascular Rate/Rhythm: regular rate and regular rhythm Heart Sounds: normal S1 and normal S2 Gastrointestinal (Abdomen) Inspection/Auscultation: + abdomen distended (patient says this is normal) and + hypoactive bowel sounds (Lower quadrants have more bowel sounds than upper, both are hypoactive) Percussion/Palpation: abdomen nontender, no guarding and abdomen not rigid Skin + dry skin (only feet/ankles) Psychiatric Orientation: alert and oriented x 3 Discharge Data Consultations 03/30/20 04:47 ED Decision to Admit Stat Hospital Course (1) Nausea vomiting and diarrhea: Mr Stephenson is a 69 y/o M with a PMH of CKD, DM2, CAD, GERD, HTN who presented to the ED with nausea, vomiting, and diarrhea this morning who is now feeling "100% better" after recieiving medication and NG tube placement. --initial concern was SBO/ileus type pathology -but after re-read by radiology, was more c/w enteritis (probably nonspecifically infectious) radiographically - and given rapid clinical resolution - was much more c/w this clinically as well. ?viral vs food borne - but improved. NGT dc'd 03/30, eating well today and safe/stable for discharge. (2) UTI (urinary tract infection): initially w concern on UTI - urinary sx and abnormal UA - but culture negative, and certainly has had stent-related sx - more than likely urinary sx related to stone/stent. to f/u w urology (hopefully later this week) (3) Kidney stone on left side: Noted. Stent in place outpt urology f/u encouraged for hopefully later this week (4) Chronic kidney disease: CKD4. stable for home. outpt f/u (5) Diabetic peripheral neuropathy: Chronic. Stable. Continue gabapentin 300 mg p.o. twice daily (6) Dyslipidemia: Chronic. Continue rosuvastatin 40 mg p.o. daily (7) Diabetes mellitus: Patient with diabetes. Recently started on Levemir 5 units every afternoon. Blood sugar is elevated today at 247. Last hemoglobin A1c on 02/03/2020 = 7.9 Continue Trulicity Lantus 5 units twice daily with insulin sliding scale, goal blood sugar 100-1 40 Hold oral agents, glimepiride and metformin (8) Enlarged prostate with lower urinary tract symptoms (LUTS): Patient reports difficulty starting urinary stream as well as dysuria Continue finasteride (9) Obstructive sleep apnea of adult: Noted. Patient does not wear CPAP (10) CAD (coronary artery disease): Continue aspirin 81 mg p.o. daily Continue Plavix 75 mg p.o. daily Continue metoprolol 100 mg p.o. twice daily Continue Crestor 40 mg p.o. daily Consider low-dose CAR inhibitor (11) Hypertension: Blood pressure = 140/94 Continue metoprolol Continue to monitor (12) Depression: Chronic. Continue Wellbutrin 150 mg p.o. twice daily (13) COPD (chronic obstructive pulmonary disease): Chronic. Stable. <30mins Discharge Plan Discharge Items Patient Disposition: Home - Self-Care Reason For Visit: ? BOWEL OBSTRUCTION Discharge Diagnosis: Gastroenteritis Activity: Per Instructions section Non-emergency contact: Primary Care Provider Call non-emergency contact if: your symptoms worsen and you have a fever Follow-up/Referrals: PCP,NO [Primary Care Provider] - Diet: Carb Consistent or DM2 Addtl Attending Provider Instructions: Mr. Stephenson you came in to the emergency department with nausea, vomiting, and diarrhea with a concern for bowel obstruction. An NG tube was placed in your nose and you were given antibiotics and you began to feel better. CT imaging confirmed that you did not have a bowel obstruction making an infection the likely cause. You had no belly pain when we applied pressure. Your nausea and vomiting went away while in our care. You tolerated the liquid diet and when the NG tube was removed, you tolerated solid foods, showing that you were recovering well. Please follow up with your primary care provider at your earliest convenience. You may continue to have some episodes of diarrhea as your stomach recovers. For the first few days after the hospital, avoid taking miralax until your bowel movements return to normal. Then slowly return to your normal amount of miralax. Throughout your time at the hospital you continued to have back pain from your kidney stones. Please follow up with Urology for further treatment and stent removal at their discretion. Pending Studies at Discharge: No Stand-Alone Forms: My [facility], Smoking Cessation Medications and DC Order Prescriptions: Continued finasteride [Proscar] 5 mg tablet 5 mg PO QAM Qty: 90 RF: 1 (DME) pen needle, diabetic [Comfort EZ Pen Scott] 31 gauge x 3/16" needle See Rx Instructions .ROUTE .MEDSUPPLY Qty: 50 RF: 3 clopidogrel 75 mg tablet 75 mg PO DAILY Qty: 90 RF: 3 metformin 500 mg tablet 500 mg PO BID Qty: 60 RF: 2 glimepiride 2 mg tablet 3 mg PO BID Qty: 180 RF: 1 Trulicity 1.5 mg/0.5 mL pen injector 1.5 mg SQ .COMPLEX Qty: 2 RF: 0 furosemide 20 mg tablet 20 mg PO DAILY PRN (Reason: Edema) RF: 0 gabapentin 300 mg capsule 300 mg PO BID RF: 0 potassium citrate 15 mEq tablet extended release 15 meq PO BID Qty: 60 RF: 2 Levemir FlexTouch U-100 Insuln 100 unit/mL (3 mL) insulin pen 5 units SQ QPM Qty: 3 RF: 2 (DME) pen needle, diabetic [AboutTime Pen Needle] 32 gauge x 5/32" needle See Rx Instructions .ROUTE .MEDSUPPLY Qty: 100 RF: 3 ipratropium-albuterol 0.5 mg-3 mg(2.5 mg base)/3 mL solution for nebulization 3 ml INHALATION QID PRN (Reason: COPD ) Qty: 180 RF: 5 (DME) True Metrix Glucose Test Strip Strip See Rx Instructions .ROUTE .MEDSUPPLY Qty: 50 RF: 5 (DME) lancets [OneTouch Delica Lancets] 33 gauge misc See Dose Instructions .ROUTE .MEDSUPPLY Qty: 100 RF: 1 metoprolol tartrate [Lopressor] 100 mg tablet 100 mg PO BID Qty: 180 RF: 1 rosuvastatin [Crestor] 40 mg tablet 40 mg PO DAILY Qty: 90 RF: 1 nitroglycerin [Nitrostat] 0.4 mg Tablet, Sublingual 0.4 mg Sublingual UD PRN (Reason: Chest Pain) RF: 0 cholecalciferol (vitamin D3) [Vitamin D3] 1,000 unit Tablet 1,000 unit PO BID RF: 0 aspirin [Aspir-81] 81 mg Tablet,Delayed Release (Dr/Ec) 81 mg PO QPM Qty: 0 RF: 0 oxycodone 5 mg Tablet 5 mg PO Q4 PRN (Reason: pain) Qty: 20 RF: 0 acetaminophen 325 mg Tablet 650 mg PO TID Qty: 30 RF: 0 oxybutynin chloride 5 mg Tablet 5 mg PO TID PRN (Reason: bladder spasms) Qty: 30 RF: 0 bupropion HCl 150 mg tablet sustained-release 12 hr 150 mg PO BID RF: 0 Discharge Orders: Discharge Order (Routine); Ordered 03/31/20 Ordered By: Nadia Dee/Other Patient Handouts: Hypoglycemia (Low Blood Sugar), Managing Type 2 Diabetes, Diabetes: Meal Planning, Insulin Detemir injection Admission Data Admit Date/Time: 03/30/20 05:17 Attending Provider: Ok Ruiz Admit Provider: Brunilda King Primary Care Provider: PCP,NO Other Providers: Brunilda King Other Interventions: Discharge Summary Assessment (RN) Last Done: 03/31/20 18:08 DC Date/Time DO NOT enter until pt leaves facility: 03/31/20 18:34
--- NOTE | 2020-03-31 19:30 | Billing Data ---
Date of Service March 31, 2020 Coding Level of Care Code D/C Day Management <30 mins
== END 2020-03-31 18:34 | disposition home or self-care (01) | DRG 392 ==
LOC: ED 01:47 → 3E 05:17 → SUATTDRO 05:17 → 3E 05:56

== ENCOUNTER 2021-03-27 18:26 | Inpatient (IN) ==
--- NOTE | 2021-03-27 18:31 | Emergency Department Note ---
History of Present Illness General Chief Complaint: Abdominal Pain Time Seen by Provider: 03/27/21 18:30 Source: patient Mode of arrival: EMS Limitations: no limitations History of Present Illness Provider Complaint: abdominal pain Onset (ago): 2 hour(s) Pain Consistency: constant Location: periumbilical Radiation: none Migration to: no migration Severity: mild Quality: + dull Relieved By: + nothing Exacerbated By: + nothing Context: no foreign travel, no possible food poisoning, no sick contacts, no recent antibiotic use, no recent surgery/procedure or no recent injury Associated Symptoms: + constipation; no nausea, no vomiting, no diarrhea, no fever, no dysuria, no hematemesis, no hematochezia, no melena, no hematuria and no chest pain Treatments prior to arrival: none Home Medications Medication Instructions Recorded Confirmed Type cholecalciferol (vitamin D3) 25 1,000 unit PO BID 08/22/18 03/27/21 History mcg (1,000 unit) tablet (Vitamin D3) furosemide 20 mg tablet 20 mg PO DAILY PRN 03/20/20 03/27/21 History acetaminophen 325 mg tablet 650 mg PO TID PRN 04/27/20 03/27/21 History bimatoprost 0.01 % eye drops 1 drp OPB HS 04/27/20 03/27/21 History (Lumigan) lactulose 10 gram/15 mL oral 10 g PO DAILY PRN #237 ml 04/29/20 03/27/21 Rx solution lancets 33 gauge (OneTouch Delica #100 ea 05/13/20 03/05/21 Rx Lancets) Hospital Bed [facility] (Hospital #1 ea 05/29/20 03/05/21 Rx Bed) aspirin 81 mg tablet,delayed 81 mg PO QPM 06/08/20 03/27/21 History release blood-glucose meter (True Metrix #1 ea 08/24/20 03/05/21 Rx Glucose Meter) glimepiride 2 mg tablet 3 mg PO BID #270 tab 10/22/20 03/27/21 Rx potassium citrate 15 mEq (1,620 See Rx Instructions .ROUTE 10/22/20 03/27/21 Rx mg) tablet,extended release .COMPLEX #60 tab finasteride 5 mg tablet (Proscar) 5 mg PO QAM #90 tab 11/09/20 03/27/21 Rx metformin 500 mg tablet 500 mg PO BID #180 tab 11/09/20 03/27/21 Rx rosuvastatin 40 mg tablet (Crestor) 40 mg PO DAILY #90 tab 11/09/20 03/27/21 Rx gabapentin 300 mg capsule 300 mg PO BID #180 cap 11/16/20 03/27/21 Rx metoprolol tartrate 100 mg tablet 100 mg PO BID #180 tab 11/16/20 03/27/21 Rx (Lopressor) fluticasone furoate 200 1 inh INHALATION DAILY #60 ea 11/27/20 03/27/21 Rx mcg-vilanterol 25 mcg/dose inhalation powder (Breo Ellipta) trospium 60 mg capsule,extended 60 mg PO QAM #90 cap 11/27/20 03/27/21 Rx release 24 hr insulin aspart U-100 100 unit/mL See Rx Instructions SUBCUT DAILY 12/09/20 03/27/21 Rx (3 mL) subcutaneous pen (Novolog #15 ml Flexpen U-100 Insulin aspart) pen needle, diabetic 31 gauge x #400 ea 12/09/20 03/05/21 Rx 3/16" (BD Ultra-Fine Mini Pen Needle) flash glucose scanning reader #1 ea 12/16/20 03/05/21 History (FreeStyle Nidia 2 [place]) flash glucose sensor (FreeStyle #1 ea 12/16/20 03/05/21 History Nidia 2 Sensor) insulin degludec 200 unit/mL (3 35 unit SUBCUT DAILY #18 ml 12/28/20 03/27/21 Rx mL) subcutaneous pen (Tresiba FlexTouch U-200 insulin) clopidogrel 75 mg tablet 75 mg PO QAM #90 tab 01/11/21 03/27/21 Rx blood sugar diagnostic (True #100 ea 02/09/21 03/05/21 Rx Metrix Glucose Test Strip) lisinopril 10 mg tablet 10 mg PO DAILY #90 tab 02/16/21 03/27/21 Rx sildenafil 50 mg tablet 50 mg PO DAILY PRN #7 tab 02/16/21 03/27/21 Rx bupropion HCl 150 mg tablet,12 hr 150 mg PO BID 90 Days #180 ea 02/24/21 03/27/21 Rx sustained-release dulaglutide 1.5 mg/0.5 mL 1.5 mg SQ WK #6 ml 02/24/21 03/27/21 Rx subcutaneous pen injector (Trulicity) pantoprazole 40 mg tablet,delayed 40 mg PO DAILY PRN #90 tab 02/24/21 03/27/21 Rx release (Protonix) albuterol sulfate 0.63 mg/3 mL 0.63 mg CONTINUOUS NEBULIZATION 03/27/21 03/27/21 History solution for nebulization QID PRN ipratropium 0.5 mg-albuterol 3 mg 3 ml INHALATION Q4 PRN 03/27/21 03/27/21 History (2.5 mg base)/3 mL nebulization soln Allergies Allergy/AdvReac Type Severity Reaction Status Date / Time azithromycin Allergy Mild diarrhea Verified 03/27/21 19:08 Past Med/Surg History Medical History BPH (benign prostatic hyperplasia) CAD (coronary artery disease) Acute AK 03/2011, complicated by 3 episodes of v fib requiring electrical shock- ZITA x2 Chronic kidney disease With recent EDILMA on CKD. Cr > 3 on admission 03/04 and most recently 2.36 on 03/31. ACEi currently on hold. COPD (chronic obstructive pulmonary disease) Severe, per pulm- 2L N/C prn (per patient, typically uses rarely/monthly) Encounter for pre-operative examination GERD (gastroesophageal reflux disease) History of AK (myocardial infarction) Acute AK 03/2011, complicated by 3 episodes of v fib requiring electrical shock- ZITA x2 Hypertension Hypophosphatemia Morbid obesity with BMI of 40.0-44.9, adult Nephrolithiasis Admitted to [facility] for 7 mm L ureteral stone causing hydronephrosis/EDILMA Obstructive sleep apnea of adult Patient refuses CPAP. On home oxygen therapy 2L N/C prn but largely noncompliant. Peripheral neuropathy UTI (urinary tract infection) Surgical History History of bilateral cataract extraction History of cardiac cath 2010- stents x2 History of carpal tunnel release right History of colonoscopy Colonoscopy: 03/18/19: MAC sedation at [facility] History of lithotripsy Left ESWL: 09/14/18: [place] [facility] [place] at [place]: 135.1[place]) History of lithotripsy Left ESWL 06/07/19 [facility] History of tooth extraction Hx of transurethral resection of prostate S/P cystoscopy with ureteral stent placement recently 03/05/2020 08/23/2018. MAC. No issues. Family History Mother Family history of diabetes mellitus Coronary heart disease AK Father Coronary heart disease AK Myocardial infarction Other No family history of adverse response to anesthesia Denies family history of Ovarian cancer Prostate cancer Breast cancer Colorectal cancer Social History Smoking Status: Former smoker Tobacco Type: Cigarettes Number of Years Since Quit: 7; Second Hand Exposure: No; Hx Alcohol Use: No Hx Substance Use: No Preferred Language: Algerian Communication Ability: Effective Visual Impairment: No Limitations Hearing Ability: Normal [employer] Executive Required: No Beliefs That Will Affect Care: None marital status: Current Living Situation: Spouse Feels Safe at Home: Yes caffeine: Yes (Tea and soda ) Dental Care, Regularly: No Physical Activity Frequency: Does not Exercise Seatbelt Use: always Sunscreen Use: No Assistive Devices: Denture - Upper, Denture - Lower and Walker Review of Systems See HPI for pertinent positives & negatives. and A total of 10 systems reviewed and were otherwise negative Physical Exam Vital Signs: Vital Signs - 24 hr 03/27/21 18:31 03/27/21 18:33 03/27/21 18:35 Temperature 36.6 C Temperature Source Oral Pulse Rate 85 86 Pulse Rate [Apical ] Pulse Rate from Sp O2 Sensor 85 Pulse Rhythm Regular Pulse Rhythm [Apic al] Pulse Strength Normal Pulse Strength [Ap ical] Respiratory Rate 20 24 Respiratory Effort / Characteristics Non-Labored Sponta neous Respiratory Depth Normal Respiratory Patter n Regular Blood Pressure 109/81 109/81 Blood Pressure [place] n 90 90 Blood Pressure Pos ition Sitting Pulse Oximetry 97 95 Oxygen Delivery Me thod Nasal Cannula Room Air Oxygen Flow Rate 2 Sepsis Recent Feve r Within 48 Hours No Sepsis New/Unexpla ined Change in Men winston Status No Sepsis Action Take n by Nursing No Action Required 03/27/21 19:39 03/27/21 20:14 03/27/21 21:09 Temperature Temperature Source Pulse Rate 85 Pulse Rate [Apical ] Pulse Rate from Sp O2 Sensor 85 Pulse Rhythm Pulse Rhythm [Apic al] Pulse Strength Pulse Strength [Ap ical] Respiratory Rate 22 Respiratory Effort / Characteristics Respiratory Depth Respiratory Patter n Blood Pressure 94/72 L 102/61 110/75 Blood Pressure [place] n 79 74 86 Blood Pressure Pos ition Pulse Oximetry 98 Oxygen Delivery Me thod Oxygen Flow Rate Sepsis Recent Feve r Within 48 Hours Sepsis New/Unexpla ined Change in Men [place] Status Sepsis Action Take n by Nursing 03/27/21 21:58 03/27/21 22:59 03/27/21 23:15 Temperature Temperature Source Pulse Rate 81 82 Pulse Rate [Apical ] Pulse Rate from Sp O2 Sensor 81 82 Pulse Rhythm Pulse Rhythm [Apic al] Pulse Strength Pulse Strength [Ap ical] Respiratory Rate 17 15 20 Respiratory Effort / Characteristics Non-Labored Sponta neous Respiratory Depth Normal Respiratory Patter n Blood Pressure 118/75 142/91 H Blood Pressure [place] n 89 108 Blood Pressure Pos ition Pulse Oximetry 97 97 Oxygen Delivery Me thod Oxygen Flow Rate Sepsis Recent Feve r Within 48 Hours Sepsis New/Unexpla ined Change in Men [place] Status Sepsis Action Take n by Nursing 03/27/21 23:23 Temperature 37.1 C Temperature Source Oral Pulse Rate Pulse Rate [Apical ] 85 Pulse Rate from Sp O2 Sensor Pulse Rhythm Pulse Rhythm [Apic al] Regular Pulse Strength Pulse Strength [Ap ical] Normal Respiratory Rate 18 Respiratory Effort / Characteristics Non-Labored Sponta neous Respiratory Depth Normal Respiratory Patter n Blood Pressure Blood Pressure [place] n Blood Pressure Pos ition Pulse Oximetry 98 Oxygen Delivery Me thod Room Air Oxygen Flow Rate Sepsis Recent Feve r Within 48 Hours Sepsis New/Unexpla ined Change in Men win[place] Status Sepsis Action Take n by Nursing Physical Exam: GENERAL: Chronically ill in appearance but no apparent distress. Nasal cannula in place. EYE EXAM: Normal conjunctiva. PERRL, no anisocoria and EOM's grossly intact w/o pain. NECK: Supple, no nuchal rigidity, no adenopathy, non-tender. No signs of meningismus. LUNGS: Clear to auscultation. Normal chest wall mechanics. HEART: NSR, no MRG. ABDOMEN: Abdomen soft, mid abdominal tenderness without peritonitis, normo- active bowel sounds, no masses, no rebound or guarding. BACK: No CVA TTP. SKIN: No rashes and no bruising. UPPER EXTREMITIES: Upper extremities are grossly normal. LOWER EXTREMITIES: Grossly normal, left greater than right lower extremity edema 1-2+. No calf pain or erythema. Scaling of the skin bilateral lower extremities. Compartments are soft. NEURO EXAM: A&O x3, cranial nerves II-XII grossly intact, normal speech, moves all 4 extremities on command w/o issue. Course Course Cardiac monitoring: An order was placed for continuous cardiac monitoring. The monitor shows a rate of 86 with sinus rhythm. Administered Medications Discontinued Medications Sodium Chloride (Nss 1000ml) 500 mls @ 999 mls/hr IV .Q31M ONE Stop: 03/27/21 20:43 Last Admin: 03/27/21 21:17 Dose: 999 mls/hr Documented by: [id number] Morphine Sulfate (Morphine Sulfate 4 Mg/Ml 1 Ml Carp\\Vial) 2 mg IV NOW STA Stop: 03/27/21 18:36 Last Admin: 03/27/21 18:53 Dose: 2 mg Documented by: [id number] Ondansetron HCl (Ondansetron Inj 2 Mg/Ml 2 Ml Vial) 4 mg IV NOW STA Stop: 03/27/21 21:30 Last Admin: 03/27/21 21:35 Dose: 4 mg Documented by: [id number] Medical Decision Making Differential Diagnosis Appendicitis, testicular torsion, infections, diverticulitis, UTI, obstruction, mesenteric ischemia, aortic pathology, inflammatory bowel disease, renal colic, PUD, pancreatitis, biliary pathology, hernia, volvulus, constipation, as well as other pathologies. Medical Records Attestation: I reviewed the patient's medical records. Home Medications Current Medication List: was personally reviewed by me Laboratory Data Attestation: I reviewed the patient's lab results. Result diagrams: 03/27/21 18:45 03/27/21 18:45 Lab Results 03/27/21 03/27/21 03/27/21 Range/Units 18:45 18:45 20:01 WBC 17.02 H (4.8-10.8) K/uL RBC 5.43 (4.7-6.1) M/uL Hgb 14.2 (14.0-18.0) g/dL Hct 46.4 (42-52) % MCV 85.5 (80-100) fL MCH 26.2 (25-34) pg MCHC 30.6 L (32-36) g/dL RDW Std Deviation 55.8 H (36.4-46.3) fL RDW Coeff of Cirilo 18.2 H (11.5-14.5) % Plt Count 220 (130-400) K/uL MPV 9.6 (7.4-10.4) fL Immature Gran % (Auto) 0.5 % Neut % (Auto) 85.5 % Lymph % (Auto) 4.5 % [place] % (Auto) 8.8 % Eos % (Auto) 0.5 % Baso % (Auto) 0.2 % Neut # (Auto) 14.57 H (1.4-6.5) K/uL Lymph # (Auto) 0.76 L (1.2-3.4) K/uL [place] # (Auto) 1.49 H (0.11-0.59) K/uL Eos # (Auto) 0.09 (0-0.5) K/uL Baso # (Auto) 0.03 (0-0.2) K/uL Immature Gran # (Auto) 0.08 H (0.00-0.02) K/uL Sodium 137 (136-145) mmol/L Potassium 5.3 H (3.5-5.1) mmol/L Chloride 107 (98-107) mmol/L Carbon Dioxide 26 (21-32) mmol/L Anion Gap 4.0 (3-11) BUN 38 H (7-18) mg/dl Creatinine 3.24 H (0.6-1.4) mg/dl Est Cr Clr Drug Dosing 30.1 ml/min Est GFR ( Amer) 21.5 ml/min Est GFR (Non-Af Amer) 18.6 ml/min BUN/Creatinine Ratio 11.8 (10-20) Glucose 219 H (70-99) mg/dl Calcium 9.9 (8.5-10.1) mg/dl Total Bilirubin 0.7 (0.2-1) mg/dl AST 10 L (15-37) U/L ALT 18 (12-78) U/L Alkaline Phosphatase 131 H (45-117) U/L Troponin I < 0.015 (0-0.045) ng/ml Total Protein 7.9 (6.4-8.2) gm/dl Albumin 3.3 L (3.4-5.0) gm/dl Globulin 4.6 H (2.5-4.0) gm/dl Albumin/Globulin Ratio 0.7 L (0.9-2) Lipase 240 (73-393) U/L COVID-19 Eval Order Covid19 at [facility] SARS-CoV-2 (PCR) (Negative) 03/27/21 Range/Units 20:01 WBC (4.8-10.8) K/uL RBC (4.7-6.1) M/uL Hgb (14.0-18.0) g/dL Hct (42-52) % MCV (80-100) fL MCH (25-34) pg MCHC (32-36) g/dL RDW Std Deviation (36.4-46.3) fL RDW Coeff of Cirilo (11.5-14.5) % Plt Count (130-400) K/uL MPV (7.4-10.4) fL Immature Gran % (Auto) % Neut % (Auto) % Lymph % (Auto) % [place] % (Auto) % Eos % (Auto) % Baso % (Auto) % Neut # (Auto) (1.4-6.5) K/uL Lymph # (Auto) (1.2-3.4) K/uL [place] # (Auto) (0.11-0.59) K/uL Eos # (Auto) (0-0.5) K/uL Baso # (Auto) (0-0.2) K/uL Immature Gran # (Auto) (0.00-0.02) K/uL Sodium (136-145) mmol/L Potassium (3.5-5.1) mmol/L Chloride (98-107) mmol/L Carbon Dioxide (21-32) mmol/L Anion Gap (3-11) BUN (7-18) mg/dl Creatinine (0.6-1.4) mg/dl Est Cr Clr Drug Dosing ml/min Est GFR ( Amer) ml/min Est GFR (Non-Af Amer) ml/min BUN/Creatinine Ratio (10-20) Glucose (70-99) mg/dl Calcium (8.5-10.1) mg/dl Total Bilirubin (0.2-1) mg/dl AST (15-37) U/L ALT (12-78) U/L Alkaline Phosphatase (45-117) U/L Troponin I (0-0.045) ng/ml Total Protein (6.4-8.2) gm/dl Albumin (3.4-5.0) gm/dl Globulin (2.5-4.0) gm/dl Albumin/Globulin Ratio (0.9-2) Lipase (73-393) U/L COVID-19 Eval Order SARS-CoV-2 (PCR) NEGATIVE (Negative) Imaging Data Radiologist's Impression: Abdomen/Pelvis CT 03/27/21 18:35 CT SCAN OF THE ABDOMEN AND PELVIS WITHOUT IV CONTRAST CLINICAL HISTORY: Mid abdominal pain. COMPARISON STUDY: Abdominal CT dated 06/08/2020. TECHNIQUE: CT scan of the abdomen and pelvis is performed from the lung bases to the proximal femora. Images are reviewed in the axial, sagittal, and coronal planes. IV contrast was not administered for this examination. Note that the examination was performed in suboptimal fashion without oral and IV contrast. A dose lowering technique was utilized adhering to the principles of ALARA. CT DOSE: 1597.09 mGy.cm FINDINGS: Lung bases: The heart is normal in size and without pericardial effusion. A coronary artery stent is suggested. There is a tiny hiatal hernia. There are scattered calcified granulomas. A large bleb is again seen at the left lung base. The lung bases are otherwise clear noting bibasilar scarring/atelectasis. Liver: The unenhanced liver is normal in size, contour, and attenuation. There is no intrahepatic biliary ductal dilatation. Gallbladder: There are calcified gallstones with no CT evidence of acute cholecystitis. Spleen: Normal in size and attenuation. There is a calcified splenic granuloma. Pancreas: The unenhanced pancreas is mildly atrophic and grossly unremarkable. Adrenal glands: A 4.1 cm right adrenal nodule containing macroscopic fat is unchanged from previous. The left adrenal gland is normal in appearance. Kidneys: The unenhanced kidneys are atrophic and without hydronephrosis. There are least 2 nonobstructing right renal calculi which measure up to 6 mm. A 3 mm nonobstructing calculus is seen in the left lower pole. There is no ureteral stone. Cortical scarring is suggested in the left upper pole and there is a 1.3 cm left upper pole cyst. There is no evidence of contour deforming renal mass lesion. Abdominal vasculature: There is moderate atherosclerotic calcification and ectasia of the abdominal aorta. Bowel: The stomach and proximal small bowel loops are distended and fluid- filled. Small bowel loops measure up to 4.6 cm diameter. Question a transition point in the midabdomen on image #20 and 53. The distal small bowel is relatively decompressed. Findings are consistent with a high-grade small bowel obstruction. There is no pneumatosis intestinalis or portal venous gas. No focally thick walled bowel loops are identified. Moderate fecal retention is seen throughout the colon. The appendix is not visualized. Peritoneum: There is no intraperitoneal free air or abdominal ascites. There is a fat-containing umbilical hernia. Lymphadenopathy: None. Pelvic viscera: The prostate gland is diminutive and heterogeneous. The bladder is decompressed and not well assessed. There is a fat-containing right inguinal hernia. Skeletal structures: The skeletal structures are osteopenic. There is mild lumbosacral spondylosis. No lytic or blastic lesions are seen. IMPRESSION: 1. Findings are consistent with a high-grade small bowel obstruction. Question a transition point in the midabdomen, and the distal small bowel loops are relatively decompressed. 2. No intraperitoneal free air is identified. No focally thick walled bowel loops are identified and there is no pneumatosis intestinalis or portal venous gas. 3. Bilateral nephrolithiasis. 4. Cholelithiasis. 5. Moderate fecal retention is seen throughout the colon. 6. Additional findings as above. ACT 112: Negative or not required by law. Electronically signed by: Tera Cao M.D. 03/27/2021 8:03 PM ECG Data Additional Comments: Normal sinus rhythm, rate of 84, normal intervals, normal axis, T WI in lead III. T wave flattening was present on previous EKG completed August 14, 2020. Patient also had a Q-wave in lead III at that time as well. MDM Narrative Patient does present with concern for abdominal pain that began 2 hours prior to arrival. The patient is on chronic oxygen and denies any chest pains or shortness of breath. Patient does have a known history of CAD. Patient did have blood work completed along with CT abdomen pelvis. The patient does have chronic kidney disease that the patient did have a CT of the abdomen pelvis noncontrast. Has a mild white count of 17 with a normal H&H and platelet count. The patient's kidney function is slightly changed from prior. Mild EDILMA with hyperkalemia at 5.3. The patient's Covid is negative. CT does show concern for small bowel obstruction. The patient is not had any vomiting. I did speak with the on-call hospitalist for medical admission at this time. The patient did have one episode of vomiting and NG was placed. Patient was admitted to the medicine service. The patient did have improvement in symptoms. Do not believe the patient requires surgery at this time as the patient has had no further vomiting. Impression & Plan SBO (small bowel obstruction), EDILMA (acute kidney injury), Hyperkalemia Discharge Plan Visit Data Chief Complaint: Abdominal Pain ED Provider: Alec Power Discharge Problem: SBO (small bowel obstruction), EDILMA (acute kidney injury), Hyperkalemia Patient Disposition: Admitted As Inpatient Discharge Instructions Interventions: ED Discharge Assessment Last Done: 03/27/21 23:24 Forms Stand Alone Forms: My [facility] Prescriptions Prescriptions: No Action (DME) lancets [OneTouch Delica Lancets] 33 gauge misc See Dose Instructions .ROUTE .MEDSUPPLY Qty: 100 RF: 3 (DME) Hospital Bed Misc See Rx Instructions .ROUTE .MEDSUPPLY Qty: 1 RF: 0 potassium citrate 15 mEq tablet extended release See Rx Instructions .ROUTE .COMPLEX Qty: 60 RF: 11 glimepiride 2 mg tablet 3 mg PO BID Qty: 270 RF: 3 finasteride [Proscar] 5 mg tablet 5 mg PO QAM Qty: 90 RF: 3 metformin 500 mg tablet 500 mg PO BID Qty: 180 RF: 3 rosuvastatin [Crestor] 40 mg tablet 40 mg PO DAILY Qty: 90 RF: 3 gabapentin 300 mg capsule 300 mg PO BID Qty: 180 RF: 3 metoprolol tartrate [Lopressor] 100 mg tablet 100 mg PO BID Qty: 180 RF: 3 trospium 60 mg capsule,extended release 24hr 60 mg PO QAM Qty: 90 RF: 3 insulin aspart U-100 [Novolog Flexpen U-100 Insulin] 100 unit/mL (3 mL) insulin pen See Rx Instructions subcut DAILY Qty: 15 RF: 5 (DME) pen needle, diabetic [BD Ultra-Fine Mini Pen Needle] 31 gauge x 3/16" needle See Rx Instructions .ROUTE .MEDSUPPLY Qty: 400 RF: 3 Tresiba FlexTouch U-200 200 unit/mL (3 mL) insulin pen 35 unit subcut DAILY Qty: 18 RF: 11 clopidogrel 75 mg tablet 75 mg PO QAM Qty: 90 RF: 3 (DME) True Metrix Glucose Test Strip Strip See Rx Instructions .ROUTE .MEDSUPPLY Qty: 100 RF: 5 Trulicity 1.5 mg/0.5 mL pen injector 1.5 mg SQ WK Qty: 6 RF: 3 bupropion HCl 150 mg tablet sustained-release 12 hr 150 mg PO BID 90 Days Qty: 180 RF: 3 pantoprazole [Protonix] 40 mg tablet,delayed release (DR/EC) 40 mg PO DAILY PRN (Reason: GERD) Qty: 90 RF: 3 Breo Ellipta 200-25 mcg/dose blister with device 1 inh inhalation DAILY Qty: 60 RF: 5 lisinopril 10 mg tablet 10 mg PO DAILY Qty: 90 RF: 3 sildenafil 50 mg tablet 50 mg PO DAILY PRN (Reason: sexual activity) Qty: 7 RF: 3 lactulose 10 gram/15 mL solution 10 g PO DAILY PRN (Reason: constipation) Qty: 237 RF: 0 furosemide 20 mg tablet 20 mg PO DAILY PRN (Reason: Edema) RF: 0 (DME) blood-glucose meter [True Metrix Glucose Meter] Misc See Rx Instructions .ROUTE .MEDSUPPLY Qty: 1 RF: 0 (DME) FreeStyle Nidia 2 Sensor Kit See Rx Instructions .ROUTE .MEDSUPPLY Qty: 1 RF: 0 (DME) FreeStyle Nidia 2 [place] Misc See Rx Instructions .ROUTE .MEDSUPPLY Qty: 1 RF: 0 cholecalciferol (vitamin D3) [Vitamin D3] 1,000 unit Tablet 1,000 unit PO BID RF: 0 Lumigan 0.01 % drops 1 drp OPB HS RF: 0 acetaminophen 325 mg tablet 650 mg PO TID PRN (Reason: Pain) RF: 0 aspirin 81 mg Tablet,Delayed Release (Dr/Ec) 81 mg PO QPM RF: 0 ipratropium-albuterol 0.5 mg-3 mg(2.5 mg base)/3 mL solution for nebulization 3 ml inhalation Q4 PRN (Reason: wheezing) RF: 0 albuterol sulfate 0.63 mg/3 mL solution for nebulization 0.63 mg continuous nebulization QID PRN (Reason: Shortness Of Breath Or Wheezing) RF: 0 Referrals Referrals: Salas Valente DO [Primary Care Provider] -
[2021-03-27] MEDS ORDERED: MoRPHine SULFATE 4 MG/ML 1 ML CARP\\VIAL IV STA (18:35)
[2021-03-27 18:55] LABS: Basophils # (auto) 0.03 K/uL (0-0.2); Basophils % (auto) 0.2 %; Eosinophils # (auto) 0.09 K/uL (0-0.5); Eosinophils % (auto) 0.5 %; Hematocrit (blood only) 46.4 % (42-52); Hemoglobin 14.2 g/dL (14.0-18.0); Immature Granulocytes # (auto) 0.08 K/uL (0.00-0.02); Immature Granulocytes % (auto) 0.5 %; Lymphocytes # (auto) 0.76 K/uL (1.2-3.4); Lymphocytes % (auto) 4.5 %; Mean Corpuscular Hemoglobin 26.2 pg (25-34); Mean Corpuscular Hgb Conc 30.6 g/dL (32-36); Mean Corpuscular Volume 85.5 fL (80-100); Mean Platelet Volume 9.6 fL (7.4-10.4); Monocytes # (auto) 1.49 K/uL (0.11-0.59); Monocytes % (auto) 8.8 %; Neutrophils # (auto) 14.57 K/uL (1.4-6.5); Neutrophils % (auto) 85.5 %; Platelet Count 220 K/uL (130-400); RDW Coefficient of Variation 18.2 % (11.5-14.5); RDW Standard Deviation 55.8 fL (36.4-46.3); Red Blood Count 5.43 M/uL (4.7-6.1); White Blood Count 17.02 K/uL (4.8-10.8)
[2021-03-27 19:22] LABS: Alanine Aminotransferase 18 U/L (12-78); Albumin Level 3.3 gm/dl (3.4-5.0); Aspartate Aminotransferase 10 U/L (15-37); BUN Creatinine Ratio 11.8 (10-20); Blood Urea Nitrogen 38 mg/dl (7-18); Calcium 9.9 mg/dl (8.5-10.1); Carbon Dioxide 26 mmol/L (21-32); Chloride 107 mmol/L (98-107); Creatinine Clr Calc Pharmacy 30.1 ml/min; Est GFR (African American) 21.5 ml/min; Est GFR (Non-African American) 18.6 ml/min; Glucose 219 mg/dl (70-99); Lipase 240 U/L (73-393); Potassium 5.3 mmol/L (3.5-5.1); Sodium 137 mmol/L (136-145)
[2021-03-27 19:27] LABS: Albumin Globulin Ratio 0.7 (0.9-2); Alkaline Phosphatase 131 U/L (45-117); Bilirubin,Total 0.7 mg/dl (0.2-1); Globulin 4.6 gm/dl (2.5-4.0); Total Protein 7.9 gm/dl (6.4-8.2); Troponin I < 0.015 ng/ml (0-0.045)
--- NOTE | 2021-03-27 20:05 | CT Scan Report ---
CT SCAN OF THE ABDOMEN AND PELVIS WITHOUT IV CONTRAST CLINICAL HISTORY: Mid abdominal pain. COMPARISON STUDY: Abdominal CT dated 06/08/2020. TECHNIQUE: CT scan of the abdomen and pelvis is performed from the lung bases to the proximal femora. Images are reviewed in the axial, sagittal, and coronal planes. IV contrast was not administered for this examination. Note that the examination was performed in suboptimal fashion without oral and IV contrast. A dose lowering technique was utilized adhering to the principles of ALARA. CT DOSE: 1597.09 mGy.cm FINDINGS: Lung bases: The heart is normal in size and without pericardial effusion. A coronary artery stent is suggested. There is a tiny hiatal hernia. There are scattered calcified granulomas. A large bleb is a gain seen at the left lung base. The lung bases are otherwise clear noting bibasilar scarring/atelect asis. Liver: The unenhanced liver is normal in size, contour, and attenuation. There is no intrahepatic shantell iary ductal dilatation. Gallbladder: There are calcified gallstones with no CT evidence of acute cholecystitis. Spleen: Normal in size and attenuation. There is a calcified splenic granuloma. Pancreas: The unenhanced pancreas is mildly atrophic and grossly unremarkable. Adrenal glands: A 4.1 cm right adrenal nodule containing macroscopic fat is unchanged from previous. The left adrenal gland is normal in appearance. Kidneys: The unenhanced kidneys are atrophic and without hydronephrosis. There are least 2 nonobstruc ting right renal calculi which measure up to 6 mm. A 3 mm nonobstructing calculus is seen in the left lower pole. There is no ureteral stone. Cortical scarring is suggested in the left upper pole and th ere is a 1.3 cm left upper pole cyst. There is no evidence of contour deforming renal mass lesion. Abdominal vasculature: There is moderate atherosclerotic calcification and ectasia of the abdominal a virgen. Bowel: The stomach and proximal small bowel loops are distended and fluid-filled. Small bowel loops m easure up to 4.6 cm diameter. Question a transition point in the midabdomen on image #20 and 53. The distal small bowel is relatively decompressed. Findings are consistent with a high-grade small bowel obstruction. There is no pneumatosis intestinalis or portal venous gas. No focally thick walled bowel loops are identified. Moderate fecal retention is seen throughout the colon. The appendix is not vi sualized. Peritoneum: There is no intraperitoneal free air or abdominal ascites. There is a fat-containing umbi lical hernia. Lymphadenopathy: None. Pelvic viscera: The prostate gland is diminutive and heterogeneous. The bladder is decompressed and n ot well assessed. There is a fat-containing right inguinal hernia. Skeletal structures: The skeletal structures are osteopenic. There is mild lumbosacral spondylosis. N o lytic or blastic lesions are seen. IMPRESSION: 1. Findings are consistent with a high-grade small bowel obstruction. Question a transition point in the midabdomen, and the distal small bowel loops are relatively decompressed. 2. No intraperitoneal free air is identified. No focally thick walled bowel loops are identified and there is no pneumatosis intestinalis or portal venous gas. 3. Bilateral nephrolithiasis. 4. Cholelithiasis. 5. Moderate fecal retention is seen throughout the colon. 6. Additional findings as above. ACT 112: Negative or not required by law. Electronically signed by: Tera Cao M.D. 03/27/2021 8:03 PM
[2021-03-27] MEDS ORDERED: SODIUM CHLORIDE 0.9% 1000ML 500 ML IV ONE (20:13)
[2021-03-27] MEDS ORDERED: ONDANSETRON INJ 2 MG/ML 2 ML VIAL IV STA (21:29)
--- NOTE | 2021-03-27 21:31 | History & Physical Report ---
Date of Service March 27, 2021 Assessment & Plan (1) SBO (small bowel obstruction): Plan: High-grade small bowel obstruction- Questionable transition point mid abdomen NPO NG tube to low intermittent suction Zofran 4 mg IV every 6 hours as needed Famotidine 20 mg IV every 12 hours Hold pantoprazole Zosyn 4.5 g IV every 12 hours NSS at 80 mils per hour (2) Hyperkalemia: Plan: Hyperkalemia/acute kidney injury on chronic kidney disease- Potassium 5.3 Creatinine 3.24 with range 2.20-3.00 NSS at 80 mils per hour Follow laboratory serially (3) Hypertension: Plan: Medications on hold, as patient relatively speaking is hypotensive (4) 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 Placed on Accu-Cheks before meals and at bedtime/every 6 hours, with NovoLog coverage per scale Check hemoglobin A1c (5) Acute kidney injury superimposed on CKD: Plan: See above (6) Depression: Plan: Hold bupropion (7) Enlarged prostate with lower urinary tract symptoms (LUTS): Plan: Hold finasteride. Will follow urine output closely while receiving IV fluids (8) Dyslipidemia: Plan: Hold rosuvastatin (9) Diabetic peripheral neuropathy: Plan: Hold gabapentin (10) Diabetic gastroparesis: Plan: Likely an undiagnosed issue. Patient reports that it is not unusual for him to go 5 to 6 days without a bowel movement. Consideration for improved glucose control, and once this obstruction has been resolved, at some point in the future should consider medical treatment History of Present Illness Chief Complaint: The patient presents to the emergency department with worsening of his usual abdominal pain and development of progressively worsening shortness of breath over the past 24 hours Primary Care Provider: Salas Valente DO The patient is a 70-year-old male with a past medical history including small bowel obstruction, diabetic nephropathy, uncontrolled diabetes mellitus, diabetic peripheral neuropathy, memory impairment, CKD, depression, obesity, BPH with LUTS, dyslipidemia, ureteral stone, pericardial effusion, history of ureteral stent, SREEKANTH, GERD, COPD and CAD. He presents with symptoms as noted above. Work-up in the emergency department included a CT scan of abdomen pelvis which showed a high-grade small bowel obstruction. Abnormal laboratories include: Potassium 5.3, glucose 219, creatinine 3.24 and WBC 17.02. Allergies Allergy/AdvReac Type Severity Reaction Status Date / Time azithromycin Allergy Mild diarrhea Verified 03/27/21 19:08 Home Medications Medication Instructions Recorded Confirmed Type cholecalciferol (vitamin D3) 25 1,000 unit PO BID 08/22/18 03/27/21 History mcg (1,000 unit) tablet (Vitamin D3) furosemide 20 mg tablet 20 mg PO DAILY PRN 03/20/20 03/27/21 History acetaminophen 325 mg tablet 650 mg PO TID PRN 04/27/20 03/27/21 History bimatoprost 0.01 % eye drops 1 drp OPB HS 04/27/20 03/27/21 History ([place]) lactulose 10 gram/15 mL oral 10 g PO DAILY PRN #237 ml 04/29/20 03/27/21 Rx solution lancets 33 gauge ([facility] #100 ea 05/13/20 03/05/21 Rx Lancets) [facility] ([facility] ea 05/29/20 03/05/21 Rx Bed) aspirin 81 mg tablet,delayed 81 mg PO QPM 06/08/20 03/27/21 History release blood-glucose meter (True Metrix #1 ea 08/24/20 03/05/21 Rx Glucose Meter) glimepiride 2 mg tablet 3 mg PO BID #270 tab 10/22/20 03/27/21 Rx potassium citrate 15 mEq (1,620 See Rx Instructions .ROUTE 10/22/20 03/27/21 Rx mg) tablet,extended release .COMPLEX #60 tab finasteride 5 mg tablet (Proscar) 5 mg PO QAM #90 tab 11/09/20 03/27/21 Rx metformin 500 mg tablet 500 mg PO BID #180 tab 11/09/20 03/27/21 Rx rosuvastatin 40 mg tablet (Crestor) 40 mg PO DAILY #90 tab 11/09/20 03/27/21 Rx gabapentin 300 mg capsule 300 mg PO BID #180 cap 11/16/20 03/27/21 Rx metoprolol tartrate 100 mg tablet 100 mg PO BID #180 tab 11/16/20 03/27/21 Rx (Lopressor) fluticasone furoate 200 1 inh INHALATION DAILY #60 ea 11/27/20 03/27/21 Rx mcg-vilanterol 25 mcg/dose inhalation powder (Breo Ellipta) trospium 60 mg capsule,extended 60 mg PO QAM #90 cap 11/27/20 03/27/21 Rx release 24 hr insulin aspart U-100 100 unit/mL See Rx Instructions SUBCUT DAILY 12/09/20 03/27/21 Rx (3 mL) subcutaneous pen (Novolog #15 ml Flexpen U-100 Insulin aspart) pen needle, diabetic 31 gauge x #400 ea 12/09/20 03/05/21 Rx 3/16" (BD Ultra-Fine Mini Pen Needle) flash glucose scanning reader #1 ea 12/16/20 03/05/21 History (FreeStyle Nidia 2 [place]) flash glucose sensor (FreeStyle #1 ea 12/16/20 03/05/21 History Nidia 2 Sensor) insulin degludec 200 unit/mL (3 35 unit SUBCUT DAILY #18 ml 12/28/20 03/27/21 Rx mL) subcutaneous pen (Tresiba FlexTouch U-200 insulin) clopidogrel 75 mg tablet 75 mg PO QAM #90 tab 01/11/21 03/27/21 Rx blood sugar diagnostic (True #100 ea 02/09/21 03/05/21 Rx Metrix Glucose Test Strip) lisinopril 10 mg tablet 10 mg PO DAILY #90 tab 02/16/21 03/27/21 Rx sildenafil 50 mg tablet 50 mg PO DAILY PRN #7 tab 02/16/21 03/27/21 Rx bupropion HCl 150 mg tablet,12 hr 150 mg PO BID 90 Days #180 ea 02/24/21 03/27/21 Rx sustained-release dulaglutide 1.5 mg/0.5 mL 1.5 mg SQ WK #6 ml 02/24/21 03/27/21 Rx subcutaneous pen injector (Trulicity) pantoprazole 40 mg tablet,delayed 40 mg PO DAILY PRN #90 tab 02/24/21 03/27/21 Rx release (Protonix) albuterol sulfate 0.63 mg/3 mL 0.63 mg CONTINUOUS NEBULIZATION 03/27/21 03/27/21 History solution for nebulization QID PRN ipratropium 0.5 mg-albuterol 3 mg 3 ml INHALATION Q4 PRN 03/27/21 03/27/21 History (2.5 mg base)/3 mL nebulization soln Past Med/Surg History Medical History BPH (benign prostatic hyperplasia) CAD (coronary artery disease) Acute TX 03/2011, complicated by 3 episodes of v fib requiring electrical shock- ZITA x2 Chronic kidney disease With recent EDILMA on CKD. Cr > 3 on admission 03/04 and most recently 2.36 on 03/31. ACEi currently on hold. COPD (chronic obstructive pulmonary disease) Severe, per pulm- 2L N/C prn (per patient, typically uses rarely/monthly) Encounter for pre-operative examination GERD (gastroesophageal reflux disease) History of TX (myocardial infarction) Acute [place] 03/2011, complicated by 3 episodes of v fib requiring electrical shock- ZITA x2 Hypertension Hypophosphatemia Morbid obesity with BMI of 40.0-44.9, adult Nephrolithiasis Admitted to [facility] for 7 mm L ureteral stone causing hydronephrosis/EDILMA Obstructive sleep apnea of adult Patient refuses CPAP. On home oxygen therapy 2L N/C prn but largely noncompliant. Peripheral neuropathy UTI (urinary tract infection) Surgical History History of bilateral cataract extraction History of cardiac cath 2011- stents x2 History of carpal tunnel release right History of colonoscopy Colonoscopy: 03/18/19: MAC sedation at [facility] History of lithotripsy Left ESWL: 09/14/18: [place]#5 [place] [facility] [place] at [place]: 135.1kg) History of lithotripsy Left ESWL 06/07/19 [facility] History of tooth extraction Hx of transurethral resection of prostate S/P cystoscopy with ureteral stent placement recently 03/05/2020 08/23/2018. MAC. No issues. Family History Mother Family history of diabetes mellitus Coronary heart disease [place] Father Coronary heart disease [place] Myocardial infarction Other No family history of adverse response to anesthesia Denies family history of Ovarian cancer Prostate cancer Breast cancer Colorectal cancer Social History Smoking Status: Never smoker Tobacco Type: Cigarettes Number of Years Since Quit: 7; Second Hand Exposure: No; Hx Alcohol Use: No Hx Substance Use: No Preferred Language: [place] Communication Ability: Effective Visual Impairment: No Limitations Hearing Ability: Normal Learning Support Assistant Required: No Beliefs That Will Affect Care: None marital status: Current Living Situation: Spouse Other Information That Helps Us Care for You: No Feels Safe at Home: Yes Safety Concerns: Feels Safe At This Time caffeine: Yes (Tea and soda ) Dental Care, Regularly: No Physical Activity Frequency: Does not Exercise Seatbelt Use: always Sunscreen Use: No Assistive Devices: Oxygen - Continuous and Walker Review of Systems Review of Systems: The patient denies chest pain, palpitations, cough, sore throat, fevers, chills, diarrhea , constipation, blood in urine or stool, dysuria, urinary frequency or urgency, lightheadedness, dizziness, headache, memory loss, loss of consciousness, rash, abnormal bruising or bleeding, imbalance, focal or generalized weakness, numbness or tingling in arms, generalized arthralgias or myalgias, back or neck pain, or night sweats. The review of systems is otherwise negative other than for that already noted above, and at least 10 systems have been reviewed. Physical Exam Physical Exam: The patient is awake, alert and oriented 3, well developed and well nourished, normocephalic and atraumatic, lying in bed and in no acute distress. HEENT--PERRL, EOMI, mucous membranes and oropharynx dry. Neck--supple. No JVD. No bruits. Thyroid normal, trachea midline, no adenopathy. Heart--normal S1 and S2. No murmurs, rubs or gallops. Lungs--clear bilaterally, no respiratory distress, no accessory muscle use. Abdomen--decreased bowel sounds. Mildly firm and distended Extremities--right lower extremity trace pretibial pitting edema and 2+ pitting pedal edema. Left lower extremity 2+ pretibial and pedal pitting edema Dermatologic--normal skin turgor, normal color, no abnormal lymph nodes, no rash. Neurologic--cranial nerves II through XII grossly intact. Rheumatologic--range of motion limited by body habitus Psychiatric--normal affect. Results & Data Results & Data ([facility]) Vital Signs (Past 12 Hours) Vital Signs Temp Pulse Resp BP Pulse Ox 03/27/21 21:09 110/75 03/27/21 20:14 102/61 03/27/21 19:39 85 22 94/72 L 98 03/27/21 18:33 97.9 F 86 24 109/81 95 03/27/21 18:31 85 20 109/81 97 Laboratory Results Laboratory Results WBC 17.02 K/uL (4.8-10.8) H 03/27/21 18:45 RBC 5.43 M/uL (4.7-6.1) 03/27/21 18:45 Hgb 14.2 g/dL (14.0-18.0) 03/27/21 18:45 Hct 46.4 % (42-52) 03/27/21 18:45 MCV 85.5 fL (80-100) 03/27/21 18:45 MCH 26.2 pg (25-34) 03/27/21 18:45 MCHC 30.6 g/dL (32-36) L 03/27/21 18:45 RDW Std Deviation 55.8 fL (36.4-46.3) H 03/27/21 18:45 RDW Coeff of Cirilo 18.2 % (11.5-14.5) H 03/27/21 18:45 Plt Count 220 K/uL (130-400) 03/27/21 18:45 MPV 9.6 fL (7.4-10.4) 03/27/21 18:45 Immature Gran % (Auto) 0.5 % 03/27/21 18:45 Neut % (Auto) 85.5 % 03/27/21 18:45 Lymph % (Auto) 4.5 % 03/27/21 18:45 [place] % (Auto) 8.8 % 03/27/21 18:45 Eos % (Auto) 0.5 % 03/27/21 18:45 Baso % (Auto) 0.2 % 03/27/21 18:45 Neut # (Auto) 14.57 K/uL (1.4-6.5) H 03/27/21 18:45 Lymph # (Auto) 0.76 K/uL (1.2-3.4) L 03/27/21 18:45 [place] # (Auto) 1.49 K/uL (0.11-0.59) H 03/27/21 18:45 Eos # (Auto) 0.09 K/uL (0-0.5) 03/27/21 18:45 Baso # (Auto) 0.03 K/uL (0-0.2) 03/27/21 18:45 Immature Gran # (Auto) 0.08 K/uL (0.00-0.02) H 03/27/21 18:45 Sodium 137 mmol/L (136-145) 03/27/21 18:45 Potassium 5.3 mmol/L (3.5-5.1) H 03/27/21 18:45 Chloride 107 mmol/L (98-107) 03/27/21 18:45 Carbon Dioxide 26 mmol/L (21-32) 03/27/21 18:45 Anion Gap 4.0 (3-11) 03/27/21 18:45 BUN 38 mg/dl (7-18) H 03/27/21 18:45 Creatinine 3.24 mg/dl (0.6-1.4) H 03/27/21 18:45 Est Cr Clr Drug Dosing 30.1 ml/min 03/27/21 18:45 Est GFR ( Amer) 21.5 ml/min 03/27/21 18:45 Est GFR (Non-Af Amer) 18.6 ml/min 03/27/21 18:45 BUN/Creatinine Ratio 11.8 (10-20) 03/27/21 18:45 Glucose 219 mg/dl (70-99) H 03/27/21 18:45 POC Glucose 193 mg/dl (70-99) H 03/28/21 00:57 Calcium 9.9 mg/dl (8.5-10.1) 03/27/21 18:45 Total Bilirubin 0.7 mg/dl (0.2-1) 03/27/21 18:45 AST 10 U/L (15-37) L 03/27/21 18:45 ALT 18 U/L (12-78) 03/27/21 18:45 Alkaline Phosphatase 131 U/L (45-117) H 03/27/21 18:45 Troponin I < 0.015 ng/ml (0-0.045) 03/27/21 18:45 Total Protein 7.9 gm/dl (6.4-8.2) 03/27/21 18:45 Albumin 3.3 gm/dl (3.4-5.0) L 03/27/21 18:45 Globulin 4.6 gm/dl (2.5-4.0) H 03/27/21 18:45 Albumin/Globulin Ratio 0.7 (0.9-2) L 03/27/21 18:45 Lipase 240 U/L (73-393) 03/27/21 18:45 COVID-19 Eval Order Covid19 at [facility] 03/27/21 20:01 SARS-CoV-2 (PCR) NEGATIVE (Negative) 03/27/21 20:01 Impressions Abdomen/Pelvis CT 03/27/21 18:35 CT SCAN OF THE ABDOMEN AND PELVIS WITHOUT IV CONTRAST CLINICAL HISTORY: Mid abdominal pain. COMPARISON STUDY: Abdominal CT dated 06/08/2020. TECHNIQUE: CT scan of the abdomen and pelvis is performed from the lung bases to the proximal femora. Images are reviewed in the axial, sagittal, and coronal planes. IV contrast was not administered for this examination. Note that the examination was performed in suboptimal fashion without oral and IV contrast. A dose lowering technique was utilized adhering to the principles of ALARA. CT DOSE: 1597.09 mGy.cm FINDINGS: Lung bases: The heart is normal in size and without pericardial effusion. A coronary artery stent is suggested. There is a tiny hiatal hernia. There are scattered calcified granulomas. A large bleb is again seen at the left lung base. The lung bases are otherwise clear noting bibasilar scarring/atelectasis. Liver: The unenhanced liver is normal in size, contour, and attenuation. There is no intrahepatic biliary ductal dilatation. Gallbladder: There are calcified gallstones with no CT evidence of acute cholecystitis. Spleen: Normal in size and attenuation. There is a calcified splenic granuloma. Pancreas: The unenhanced pancreas is mildly atrophic and grossly unremarkable. Adrenal glands: A 4.1 cm right adrenal nodule containing macroscopic fat is unchanged from previous. The left adrenal gland is normal in appearance. Kidneys: The unenhanced kidneys are atrophic and without hydronephrosis. There are least 2 nonobstructing right renal calculi which measure up to 6 mm. A 3 mm nonobstructing calculus is seen in the left lower pole. There is no ureteral stone. Cortical scarring is suggested in the left upper pole and there is a 1.3 cm left upper pole cyst. There is no evidence of contour deforming renal mass lesion. Abdominal vasculature: There is moderate atherosclerotic calcification and ectasia of the abdominal aorta. Bowel: The stomach and proximal small bowel loops are distended and fluid- filled. Small bowel loops measure up to 4.6 cm diameter. Question a transition point in the midabdomen on image #20 and 53. The distal small bowel is relatively decompressed. Findings are consistent with a high-grade small bowel obstruction. There is no pneumatosis intestinalis or portal venous gas. No focally thick walled bowel loops are identified. Moderate fecal retention is seen throughout the colon. The appendix is not visualized. Peritoneum: There is no intraperitoneal free air or abdominal ascites. There is a fat-containing umbilical hernia. Lymphadenopathy: None. Pelvic viscera: The prostate gland is diminutive and heterogeneous. The bladder is decompressed and not well assessed. There is a fat-containing right inguinal hernia. Skeletal structures: The skeletal structures are osteopenic. There is mild lumbosacral spondylosis. No lytic or blastic lesions are seen. IMPRESSION: 1. Findings are consistent with a high-grade small bowel obstruction. Question a transition point in the midabdomen, and the distal small bowel loops are relatively decompressed. 2. No intraperitoneal free air is identified. No focally thick walled bowel loops are identified and there is no pneumatosis intestinalis or portal venous gas. 3. Bilateral nephrolithiasis. 4. Cholelithiasis. 5. Moderate fecal retention is seen throughout the colon. 6. Additional findings as above. ACT 112: Negative or not required by law. Electronically signed by: Tera Cao M.D. 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, with long-term current use of insulin E11.21; E11.65; Z79.4 Acute kidney injury superimposed on CKD N17.9; N18.9 Depression F32.9 Depression Type: unspecified Enlarged prostate with lower urinary tract symptoms (LUTS) N40.1; R39.12 Lower urinary tract symptom detail: weak urinary stream Dyslipidemia E78.5 Diabetic peripheral neuropathy E11.42 Diabetic gastroparesis E11.43; K31.84 (1) Depression Depression Type: unspecified Qualified Code(s): F32.9 - Major depressive disorder, single episode, unspecified (2) Enlarged prostate with lower urinary tract symptoms (LUTS) Lower urinary tract symptom detail: weak urinary stream Qualified Code(s): N40.1 - Benign prostatic hyperplasia with lower urinary tract symptoms; R39.12 - Poor urinary stream
[2021-03-28] MEDS ORDERED: ONDANSETRON INJ 2 MG/ML 2 ML VIAL IV PRN (01:29)
[2021-03-28] MEDS ORDERED: CARBOHYDRATES FOR HYPOGLYCEMIA PO PRN (01:29)
[2021-03-28] MEDS ORDERED: PIPERACILL/TAZOBAC CONSULT ACTIVE PRN (01:29)
[2021-03-28] MEDS ORDERED: ACETAMINOPHEN 1000 MG/100 ML IV IV PRN (01:29)
[2021-03-28] MEDS ORDERED: GLUCOSE 10 TABS/TUBE PO PRN (01:29)
[2021-03-28] MEDS ORDERED: GLUCOSE 40% GEL 15 GM TUBE PO PRN (01:29)
[2021-03-28] MEDS ORDERED: GLUCAGON FOR INJ 1 MG VIAL SQ PRN (01:29)
[2021-03-28] MEDS ORDERED: DEXTROSE 50% 50 ML SYRINGE IV PRN (01:29)
[2021-03-28] MEDS ORDERED: ACETAMINOPHEN 1,000 MG/100 ML VIAL IV PRN (02:00)
[2021-03-28] MEDS ORDERED: PIPERACILLIN/TAZOBACTAM 4.5 GM in DEXTROSE 5% 100 ML IV ONE (02:00)
[2021-03-28] MEDS: SODIUM CHLORIDE 0.9% 1000ML 1,000 ML IV SCH ×2 (02:23→22:23)
[2021-03-28 06:28] LABS: Basophils # (auto) 0.01 K/uL (0-0.2); Basophils % (auto) 0.1 %; Eosinophils # (auto) 0.08 K/uL (0-0.5); Eosinophils % (auto) 0.7 %; Hematocrit (blood only) 44.6 % (42-52); Hemoglobin 13.2 g/dL (14.0-18.0); Immature Granulocytes # (auto) 0.03 K/uL (0.00-0.02); Immature Granulocytes % (auto) 0.3 %; Lymphocytes # (auto) 0.83 K/uL (1.2-3.4); Mean Corpuscular Hemoglobin 25.7 pg (25-34); Mean Corpuscular Hgb Conc 29.6 g/dL (32-36); Mean Corpuscular Volume 86.9 fL (80-100); Monocytes # (auto) 0.37 K/uL (0.11-0.59); Monocytes % (auto) 3.1 %; Neutrophils # (auto) 10.49 K/uL (1.4-6.5); Neutrophils % (auto) 88.8 %; Platelet Count 219 K/uL (130-400); RDW Coefficient of Variation 18.3 % (11.5-14.5); RDW Standard Deviation 58.9 fL (36.4-46.3); Red Blood Count 5.13 M/uL (4.7-6.1); White Blood Count 11.81 K/uL (4.8-10.8)
[2021-03-28] MEDS: INSULIN ASPART 100 UNITS/ML 3 ML PEN SC SCH ×2 (06:35→12:02)
[2021-03-28 06:57] LABS: Albumin Level 2.8 gm/dl (3.4-5.0); BUN Creatinine Ratio 12.6 (10-20); Calcium 8.8 mg/dl (8.5-10.1); Creatinine Clr Calc Pharmacy 25.2 ml/min; Est GFR (African American) 17.4 ml/min; Magnesium 2.3 mg/dl (1.8-2.4); Potassium 5.6 mmol/L (3.5-5.1)
[2021-03-28 07:00] LABS: Albumin Globulin Ratio 0.7 (0.9-2); Bilirubin,Total 0.7 mg/dl (0.2-1); Total Protein 6.8 gm/dl (6.4-8.2)
[2021-03-28] MEDS ORDERED: SODIUM CHLORIDE 0.9% 1000ML 250 ML IV SCH (08:08)
[2021-03-28] MEDS: PIPERACILLIN/TAZOBACTAM 4.5 GM in DEXTROSE 5% 100 ML IV SCH ×2 (08:11→17:30)
--- NOTE | 2021-03-28 09:39 | Electrocardiogram Report ---
Test Reason : Blood Pressure : / mmHG Vent. Rate : 084 BPM Atrial Rate : 084 BPM P-R Int : 160 ms QRS Dur : 074 ms QT Int : 352 ms P-R-T Axes : 063 -05 041 degrees QTc Int : 415 ms Normal sinus rhythm Possible Old Inferior infarct Abnormal ECG When compared with ECG of 14-AUG-2020 11:03, Premature ventricular complexes are no longer Present Borderline Criteria for Inferior infarct now present Confirmed by Basil Duque ([id number]) on 03/28/2021 9:39:37 AM Referred By: REFERRED SELF Confirmed By:Basil Duque
--- NOTE | 2021-03-28 10:26 | XRay Report ---
XR chest 1V portable, XR KUB/Abdomen 1 view HISTORY: 70 years-old Male sob and wheezing/ ?CHF vs AECOPD acute shortness of breath with wheezing and acute generalized abdominal pain COMPARISON: CT abdomen pelvis 03/27/2021, chest radiograph 08/14/2020 TECHNIQUE: Portable AP view the chest with KUB radiograph FINDINGS: CHEST: Cardiac silhouette is mildly enlarged. Mild left greater than right bibasilar opacities suggestive of atelectasis. No pneumothorax, pleural effusion, or overt pulmonary edema. Degenerative changes of th e shoulders and spine. Enteric tube courses below the diaphragm. KUB: Nonobstructive bowel gas pattern. Persistent air-filled dilated loops of small bowel measure up to 4. 4 cm transversely. Gaseous distended loops of large bowel are also present. No pneumatosis or pneumop eritoneum identified. No urolith. Distal tip of enteric tube projects over the gastroesophageal junct ion. IMPRESSION: 1. No acute process of the chest. 2. Persistent dilated loops of small bowel with air also present within the colon. 3. Distal tip of enteric tube projects over the gastroesophageal junction. Advancement recommended. ACT 112: Negative or not required by law. The above report was generated using voice recognition software. It may contain grammatical, syntax o r spelling errors. Electronically signed by: Kosta Wild M.D. 03/28/2021 10:24 AM
[2021-03-28 10:28] LABS: Base Excess ABG -2.9 mEq/L (-9-1.8); HCO3 ABG 24 mmol/L (19-24); PCO2 ABG 47 mmHg (35-46); PO2 ABG 93 mmHg (80-95); pH ABG 7.32 (7.35-7.45)
[2021-03-28 10:29] LABS: Allen Test Pos (Pos)
[2021-03-28 10:59] LABS: Appearance Urine Turbid (Clear); Bacteria Urine Automated Negative (Negative); Blood Urine Trace (Negative); Color Urine Dark Yellow; Epithelial Cell Urine Auto >30 /lpf (0-5); Glucose Urine UA Negative (Negative); Ketones Urine 1+ (Negative); Leukocyte Esterase Urine 2+ (Negative); Nitrite Urine Negative (Negative); Protein Urine 2+ (Negative); Specific Gravity Urine 1.028 (1.000-1.030); Urobilinogen Urine Negative (Negative); WBC Urine Automated >30 /hpf (0-5)
[2021-03-28 11:03] LABS: Bilirubin Urine 1+ (Negative)
[2021-03-28 11:12] LABS: RBC Urine Automated >30 /hpf (0-4)
--- NOTE | 2021-03-28 11:51 | Nephrology Consultation ---
Date of Consultation March 28, 2021 Assessment & Plan (1) Acute kidney injury superimposed on CKD: Oligoanuric. Jarquin to gravity. UA/microscopy pending. No obstruction on CT. Intravascularly depleted. IV saline to be switched to electrolyte neutral fluid. Metabolic profile to be monitored twice daily. Strict I/O's. Medications appropriate for kidney dysfunction. I would consider a dose reduction of Zosyn based on kidney dysfunction. Rosuvastatin dosing excessive for kidney function. Check CK with next set of labs. Lisinopril, glimepiride, and metformin held. Continue IVF to encourage urine output. Suggest challenge with bolus normosol 500 ml x 1 over 2 hours. (2) EDILMA (acute kidney injury): No emergent indication for A P MANAGER. Potential future indications discussed with Adonis and his . Goals of care reviewed. Adonis is agreeable to dialysis if needed. (3) Hyperkalemia: K citrate and CAR held. Switch NSS to normosol. Continue IVF challenge to encourage (4) Diabetic nephropathy: Hold metformin, glimepiride, and lisinopril. Baseline creatinine 2.5-3.0 mg/dL. (5) Nephrolithiasis: CT reviewed. Hold K citrate. History of Present Illness Reason for Consultation: EDILMA/CKD, hyperkalemia Requesting Physician: Yossi Izaguirre MD Attending Physician: Yossi Izaguirre MD History of Present Illness Mr. Adonis Stephenson is a 70-year-old male with morbid obesity, coronary artery disease, adult onset diabetes mellitus, neuropathy, hypertension, COPD, SREEKANTH, BPH, recurrent calcium kidney stones, and chronic kidney disease stage IV. CKD has been attributed to microvascular disease, DKD, and obesity/hypertensive nephrosclerosis. Baseline creatinine has been 2.5-3.0 mg/dL. I have followed Adonis in the nephrology clinic for several years. He was most recently evaluated in the clinic in January. Adonis has suffered multiple episodes EDILMA. The most recently was in the setting of an obstructing ureteral stone. During our clinic visit in January, lisinopril was restarted. BP runs chronically low but Adonis felt that he was tolerating the medication reasonably well. Unfortunately, he was admitted to [facility] yesterday with abdominal pain and concern for SBO. Presentation is very similar to a hospitalization in March 2020. In March 2020, Adonis presented with abdominal pain and evidence of SBO/Ileus which was felt to be more consistent with a nonspecific or infectious enteritis. In January, creatinine was 2.4 mg/dL. Creatinine yesterday was 3.2 mg/dL which has increased to 3.8 mg/dL. Metabolic profile otherwise notable for mild hyperkalemia at 5.6 mmol/L. No EKG changes noted. Adonis was seen and evaluated in his hospital room this morning. I reviewed the patient's medical history any plan of care with Paula Chand PA-C. I discussed Adonis's history and status with his (Helen). CT scan of the abdomen without contrast was personally reviewed. There is no evidence of obstruction. Kidneys are symmetrically atrophic. Adonis has been relatively anuric since admission. Jarquin catheter paced this AM with <10 ml of concentrated urine in the Jarquin bag when I assessed the patient. Adonis has experienced 1-2 weeks of decreased appetite and intermittent abdominal discomfort. He has been constipated despite regular use of Miralax as well as a stool softener. Adonis also notes that he tried to disimpact himself manually a few days ago but was only able to move a small amount of hard stool. His observed a concerning increased work of breathing and notably decreased activity tolerance over the past several days. Adonis had very little to eat or drink. He lives a very sedentary life and was not getting out of chair for several days at home. He was regularly incontinent of a fair amount of urine. This is not entirely unusual and he does wear a diaper for this reason. Helen had encouraged Adonis to come to the hospital for a couple days before he eventually agreed after developing severe abdominal pain. Adonis states that the pain was sudden in onset and describes it as a bandlike discomfort across the lower part of his abdomen. He has had similar pain of less intensity in the past. The pain lasted for hours. Adonsi notes that he could feel pressure but was not able to pass any gas. Symptoms were very similar to those he experienced in March 2020. He had some associated nausea but no vomiting. No fevers or chills reported. Symptoms have improved. He states that he is breathing comfortable at this time. He has some mild abdominal discomfort without significant tenderness. His abdomen remains distended and he continues to struggle to pass gas. He has not had a bowel movement. NGT to low intermittent suction. Adonis was taking prescribed medications including K citrate and lisinopril at home. He was not taking any furosemide. Furosemide is prescribed PRN. Adonis has a history of calcium oxalate kidney stones with increased ssCaOx and ssCaP. Urine volume found to be low. During a prior clinic visit, we started a trial of HCTZ for volume and stone management but he did not tolerate well due to chronic hypotension. He was started Rx potassium citrate. Allergies Allergy/AdvReac Type Severity Reaction Status Date / Time azithromycin Allergy Mild diarrhea Verified 03/27/21 19:08 Home Medications Medication Instructions Recorded Confirmed Type cholecalciferol (vitamin D3) 25 1,000 unit PO BID 08/22/18 03/27/21 History mcg (1,000 unit) tablet (Vitamin D3) furosemide 20 mg tablet 20 mg PO DAILY PRN 03/20/20 03/27/21 History acetaminophen 325 mg tablet 650 mg PO TID PRN 04/27/20 03/27/21 History bimatoprost 0.01 % eye drops 1 drp OPB HS 04/27/20 03/27/21 History (Ricardo) lactulose 10 gram/15 mL oral 10 g PO DAILY PRN #237 ml 04/29/20 03/27/21 Rx solution lancets 33 gauge (Robin Deljacky #100 ea 05/13/20 03/05/21 Rx Lancets) Hospital Bed Homecare (Hospital #1 ea 05/29/20 03/05/21 Rx Bed) aspirin 81 mg tablet,delayed 81 mg PO QPM 06/08/20 03/27/21 History release blood-glucose meter (True Metrix #1 ea 08/24/20 03/05/21 Rx Glucose Meter) glimepiride 2 mg tablet 3 mg PO BID #270 tab 10/22/20 03/27/21 Rx potassium citrate 15 mEq (1,620 See Rx Instructions .ROUTE 10/22/20 03/27/21 Rx mg) tablet,extended release .COMPLEX #60 tab finasteride 5 mg tablet (Proscar) 5 mg PO QAM #90 tab 11/09/20 03/27/21 Rx metformin 500 mg tablet 500 mg PO BID #180 tab 11/09/20 03/27/21 Rx rosuvastatin 40 mg tablet (Crestor) 40 mg PO DAILY #90 tab 11/09/20 03/27/21 Rx gabapentin 300 mg capsule 300 mg PO BID #180 cap 11/16/20 03/27/21 Rx metoprolol tartrate 100 mg tablet 100 mg PO BID #180 tab 11/16/20 03/27/21 Rx (Lopressor) fluticasone furoate 200 1 inh INHALATION DAILY #60 ea 11/27/20 03/27/21 Rx mcg-vilanterol 25 mcg/dose inhalation powder (Breo Ellipta) trospium 60 mg capsule,extended 60 mg PO QAM #90 cap 11/27/20 03/27/21 Rx release 24 hr insulin aspart U-100 100 unit/mL See Rx Instructions SUBCUT DAILY 12/09/20 03/27/21 Rx (3 mL) subcutaneous pen (Novolog #15 ml Flexpen U-100 Insulin aspart) pen needle, diabetic 31 gauge x #400 ea 12/09/20 03/05/21 Rx 3/16" (BD Ultra-Fine Mini Pen Needle) flash glucose scanning reader #1 ea 12/16/20 03/05/21 History (FreeStyle Nidia 2 [place]) flash glucose sensor (FreeStyle #1 ea 12/16/20 03/05/21 History Nidia 2 Sensor) insulin degludec 200 unit/mL (3 35 unit SUBCUT DAILY #18 ml 12/28/20 03/27/21 Rx mL) subcutaneous pen (Tresiba FlexTouch U-200 insulin) clopidogrel 75 mg tablet 75 mg PO QAM #90 tab 01/11/21 03/27/21 Rx blood sugar diagnostic (True #100 ea 02/09/21 03/05/21 Rx Metrix Glucose Test Strip) lisinopril 10 mg tablet 10 mg PO DAILY #90 tab 02/16/21 03/27/21 Rx sildenafil 50 mg tablet 50 mg PO DAILY PRN #7 tab 02/16/21 03/27/21 Rx bupropion HCl 150 mg tablet,12 hr 150 mg PO BID 90 Days #180 ea 02/24/21 03/27/21 Rx sustained-release dulaglutide 1.5 mg/0.5 mL 1.5 mg SQ WK #6 ml 02/24/21 03/27/21 Rx subcutaneous pen injector (Trulicity) pantoprazole 40 mg tablet,delayed 40 mg PO DAILY PRN #90 tab 02/24/21 03/27/21 Rx release (Protonix) albuterol sulfate 0.63 mg/3 mL 0.63 mg CONTINUOUS NEBULIZATION 03/27/21 03/27/21 History solution for nebulization QID PRN ipratropium 0.5 mg-albuterol 3 mg 3 ml INHALATION Q4 PRN 03/27/21 03/27/21 History (2.5 mg base)/3 mL nebulization soln Patient History Medical History (Updated 03/28/21 @ 12:23 by Rehan Man DO) BPH (benign prostatic hyperplasia) CAD (coronary artery disease) Acute GA 03/2011, complicated by 3 episodes of v fib requiring electrical shock- ZITA x2 Chronic kidney disease With recent EDILMA on CKD. COPD (chronic obstructive pulmonary disease) Severe, per pulm- 2L N/C prn (per patient, typically uses rarely/monthly) Encounter for pre-operative examination GERD (gastroesophageal reflux disease) History of GA (myocardial infarction) Acute GA 03/2011, complicated by 3 episodes of v fib requiring electrical shock- ZITA x2 Hypertension Hypophosphatemia Morbid obesity with BMI of 40.0-44.9, adult Nephrolithiasis Admitted to [facility] for 7 mm L ureteral stone causing hydronephrosis/EDILMA Obstructive sleep apnea of adult Patient refuses CPAP. On home oxygen therapy 2L N/C prn but largely noncompliant. Peripheral neuropathy UTI (urinary tract infection) Surgical History History of bilateral cataract extraction History of cardiac cath 2010- stents x2 History of carpal tunnel release right History of colonoscopy Colonoscopy: 03/18/19: MAC sedation at [facility] History of lithotripsy Left ESWL: 09/14/18: LMA#5 at [facility] [place] (weight at time: 135.1kg) History of lithotripsy Left ESWL 06/07/19 [facility] History of tooth extraction Hx of transurethral resection of prostate S/P cystoscopy with ureteral stent placement recently 03/05/2020 08/23/2018. MAC. No issues. Family History Mother Family history of diabetes mellitus Coronary heart disease GA Father Coronary heart disease GA Myocardial infarction Other No family history of adverse response to anesthesia Denies family history of Ovarian cancer Prostate cancer Breast cancer Colorectal cancer Social History Smoking Status: Never smoker Tobacco Type: Cigarettes Number of Years Since Quit: 7; Second Hand Exposure: No; Hx Alcohol Use: No Hx Substance Use: No Preferred Language: Hungarian Communication Ability: Effective Visual Impairment: No Limitations Hearing Ability: Normal Printing Grey Cloth Tender Required: No Beliefs That Will Affect Care: None marital status: Current Living Situation: Spouse Other Information That Helps Us Care for You: No Feels Safe at Home: Yes Safety Concerns: Feels Safe At This Time caffeine: Yes (Tea and soda ) Dental Care, Regularly: No Physical Activity Frequency: Does not Exercise Seatbelt Use: always Sunscreen Use: No Assistive Devices: Oxygen - Continuous and Walker Review of Systems Constitutional: + fatigue and + anorexia; no fever, no chills and no weight gain Eyes: no problem reported Ear, Nose, Mouth, Throat: no problem reported Respiratory: + dyspnea on exertion Cardiovascular: no chest pain, no palpitations and no edema Gastrointestinal: as per Subjective / HPI Genitourinary: + as per Subjective / HPI and + urinary incontinence; no dysuria or no hematuria Musculoskeletal: no problem reported Integumentary: no problem reported Neurologic: no problem reported Psychiatric: no problem reported Endocrine: no problem reported Hematologic / Lymphatic: no problem reported Physical Exam Constitutional: well developed, + ill appearing and + morbidly obese; no acute distress Eyes: no scleral abnormality and no corneal abnormality ENMT: Mouth: + dry oral mucous membranes; no oral mucosal abnormality NGT to suction Neck: normal visual inspection and trachea midline Respiratory: normal respiratory effort Auscultation: lungs clear to auscultation bilaterally and + diminished lung sounds; no rales and no rhonchi Cardiovascular: Rate/Rhythm: regular rate Heart Sounds: normal S1 and normal S2 Extremities: normal capillary refill, + pedal edema and + varicosities Gastrointestinal (Abdomen): Inspection/Auscultation: + abdomen distended and + hypoactive bowel sounds Percussion/Palpation: + abdomen tender and + dullness to percussion; no guarding Musculoskeletal: Extremities: no cyanosis and no clubbing Skin: + turgor decreased; no lesions chronic venous stasis changes Neurologic: Motor/Sensory: no tremor and no asterixis Psychiatric: Orientation: alert and oriented x 3 Results & Data ([facility]) Vital Signs (Past 12 Hours) Vital Signs Temp Pulse Pulse Pulse Resp BP Pulse Ox 03/28/21 09:18 127/62 03/28/21 07:54 87 87/56 L 03/28/21 07:30 37 C 87 16 85/56 L 96 03/28/21 01:20 36.6 C 86 20 98/61 L 94 03/28/21 00:30 37.2 C 87 20 125/74 98 Laboratory Results Laboratory Results - last 24 hr 03/27/21 03/27/21 03/27/21 18:45 18:45 20:01 WBC 17.02 H RBC 5.43 Hgb 14.2 Hct 46.4 MCV 85.5 MCH 26.2 MCHC 30.6 L RDW Std Deviation 55.8 H RDW Coeff of Cirilo 18.2 H Plt Count 220 MPV 9.6 Immature Gran % (Auto) 0.5 Neut % (Auto) 85.5 Lymph % (Auto) 4.5 [place] % (Auto) 8.8 Eos % (Auto) 0.5 Baso % (Auto) 0.2 Neut # (Auto) 14.57 H Lymph # (Auto) 0.76 L [place] # (Auto) 1.49 H Eos # (Auto) 0.09 Baso # (Auto) 0.03 Immature Gran # (Auto) 0.08 H ABG pH ABG pCO2 ABG pO2 ABG HCO3 ABG O2 Saturation ABG Base Excess Yayo Test Barometric Pressure Oxygen Given Sodium 137 Potassium 5.3 H Chloride 107 Carbon Dioxide 26 Anion Gap 4.0 BUN 38 H Creatinine 3.24 H Est Cr Clr Drug Dosing 30.1 Est GFR ( Amer) 21.5 Est GFR (Non-Af Amer) 18.6 BUN/Creatinine Ratio 11.8 Glucose 219 H POC Glucose Estimat Average Glucose Hemoglobin A1c Calcium 9.9 Magnesium Total Bilirubin 0.7 AST 10 L ALT 18 Alkaline Phosphatase 131 H Ammonia Troponin I < 0.015 NT-Pro-B Natriuret Pep Total Protein 7.9 Albumin 3.3 L Globulin 4.6 H Albumin/Globulin Ratio 0.7 L Lipase 240 Prostate Specific Ag Urine Color Urine Appearance Urine pH Ur Specific [place] Urine Protein Urine Glucose (UA) Urine Ketones Urine Blood Urine Nitrite Urine Bilirubin Urine Urobilinogen Ur Leukocyte Esterase Urine WBC (Auto) Urine RBC (Auto) U Hyaline Cast (Auto) U Epithel Cells (Auto) Urine Bacteria (Auto) Ur Renal Epithelial Cell Urine Crystals Urine Yeast COVID-19 Eval Order Covid19 at [facility] SARS-CoV-2 (PCR) 03/27/21 03/28/21 03/28/21 20:01 00:57 05:59 WBC 11.81 H RBC 5.13 Hgb 13.2 L Hct 44.6 MCV 86.9 MCH 25.7 MCHC 29.6 L RDW Std Deviation 58.9 H RDW Coeff of Cirilo 18.3 H Plt Count 219 MPV 10.0 Immature Gran % (Auto) 0.3 Neut % (Auto) 88.8 Lymph % (Auto) 7.0 [place] % (Auto) 3.1 Eos % (Auto) 0.7 Baso % (Auto) 0.1 Neut # (Auto) 10.49 H Lymph # (Auto) 0.83 L [place] # (Auto) 0.37 Eos # (Auto) 0.08 Baso # (Auto) 0.01 Immature Gran # (Auto) 0.03 H ABG pH ABG pCO2 ABG pO2 ABG HCO3 ABG O2 Saturation ABG Base Excess Yayo Test Barometric Pressure Oxygen Given Sodium Potassium Chloride Carbon Dioxide Anion Gap BUN Creatinine Est Cr Clr Drug Dosing Est GFR ( Amer) Est GFR (Non-Af Amer) BUN/Creatinine Ratio Glucose POC Glucose 193 H Estimat Average Glucose Hemoglobin A1c Calcium Magnesium Total Bilirubin AST ALT Alkaline Phosphatase Ammonia Troponin I NT-Pro-B Natriuret Pep Total Protein Albumin Globulin Albumin/Globulin Ratio Lipase Prostate Specific Ag Urine Color Urine Appearance Urine pH Ur Specific [place] Urine Protein Urine Glucose (UA) Urine Ketones Urine Blood Urine Nitrite Urine Bilirubin Urine Urobilinogen Ur Leukocyte Esterase Urine WBC (Auto) Urine RBC (Auto) U Hyaline Cast (Auto) U Epithel Cells (Auto) Urine Bacteria (Auto) Ur Renal Epithelial Cell Urine Crystals Urine Yeast COVID-19 Eval Order SARS-CoV-2 (PCR) NEGATIVE 03/28/21 03/28/21 03/28/21 05:59 05:59 06:12 WBC RBC Hgb Hct MCV MCH MCHC RDW Std Deviation RDW Coeff of Cirilo Plt Count MPV Immature Gran % (Auto) Neut % (Auto) Lymph % (Auto) [place] % (Auto) Eos % (Auto) Baso % (Auto) Neut # (Auto) Lymph # (Auto) [place] # (Auto) Eos # (Auto) Baso # (Auto) Immature Gran # (Auto) ABG pH ABG pCO2 ABG pO2 ABG HCO3 ABG O2 Saturation ABG Base Excess Yayo Test Barometric Pressure Oxygen Given Sodium 141 Potassium 5.6 H Chloride 110 H Carbon Dioxide 27 Anion Gap 4.0 BUN 49 H Creatinine 3.86 H D Est Cr Clr Drug Dosing 25.2 Est GFR ( Amer) 17.4 Est GFR (Non-Af Amer) 15.0 BUN/Creatinine Ratio 12.6 Glucose 141 H POC Glucose 138 H Estimat Average Glucose Pending Hemoglobin A1c Pending Calcium 8.8 Magnesium 2.3 Total Bilirubin 0.7 AST 10 L ALT 15 Alkaline Phosphatase 111 Ammonia Troponin I NT-Pro-B Natriuret Pep Total Protein 6.8 Albumin 2.8 L Globulin 4.0 Albumin/Globulin Ratio 0.7 L Lipase Prostate Specific Ag Urine Color Urine Appearance Urine pH Ur Specific [place] Urine Protein Urine Glucose (UA) Urine Ketones Urine Blood Urine Nitrite Urine Bilirubin Urine Urobilinogen Ur Leukocyte Esterase Urine WBC (Auto) Urine RBC (Auto) U Hyaline Cast (Auto) U Epithel Cells (Auto) Urine Bacteria (Auto) Ur Renal Epithelial Cell Urine Crystals Urine Yeast COVID-19 Eval Order SARS-CoV-2 (PCR) 03/28/21 03/28/21 03/28/21 10:11 10:13 10:13 WBC RBC Hgb Hct MCV MCH MCHC RDW Std Deviation RDW Coeff of Cirilo Plt Count MPV Immature Gran % (Auto) Neut % (Auto) Lymph % (Auto) [place] % (Auto) Eos % (Auto) Baso % (Auto) Neut # (Auto) Lymph # (Auto) [place] # (Auto) Eos # (Auto) Baso # (Auto) Immature Gran # (Auto) ABG pH 7.32 L ABG pCO2 47 H ABG pO2 93 ABG HCO3 24 ABG O2 Saturation 97.0 H ABG Base Excess -2.9 Yayo Test Pos Barometric Pressure 728.7 Oxygen Given 2L Sodium Potassium Chloride Carbon Dioxide Anion Gap BUN Creatinine Est Cr Clr Drug Dosing Est GFR ( Amer) Est GFR (Non-Af Amer) BUN/Creatinine Ratio Glucose POC Glucose Estimat Average Glucose Hemoglobin A1c Calcium Magnesium Total Bilirubin AST ALT Alkaline Phosphatase Ammonia 42.2 H Troponin I NT-Pro-B Natriuret Pep 164 Total Protein Albumin Globulin Albumin/Globulin Ratio Lipase Prostate Specific Ag Urine Color Urine Appearance Urine pH Ur Specific [place] Urine Protein Urine Glucose (UA) Urine Ketones Urine Blood Urine Nitrite Urine Bilirubin Urine Urobilinogen Ur Leukocyte Esterase Urine WBC (Auto) Urine RBC (Auto) U Hyaline Cast (Auto) U Epithel Cells (Auto) Urine Bacteria (Auto) Ur Renal Epithelial Cell Urine Crystals Urine Yeast COVID-19 Eval Order SARS-CoV-2 (PCR) 03/28/21 03/28/21 03/28/21 10:14 10:15 12:00 WBC RBC Hgb Hct MCV MCH MCHC RDW Std Deviation RDW Coeff of Cirilo Plt Count MPV Immature Gran % (Auto) Neut % (Auto) Lymph % (Auto) [place] % (Auto) Eos % (Auto) Baso % (Auto) Neut # (Auto) Lymph # (Auto) [place] # (Auto) Eos # (Auto) Baso # (Auto) Immature Gran # (Auto) ABG pH ABG pCO2 ABG pO2 ABG HCO3 ABG O2 Saturation ABG Base Excess Yayo Test Barometric Pressure Oxygen Given Sodium Potassium Chloride Carbon Dioxide Anion Gap BUN Creatinine Est Cr Clr Drug Dosing Est GFR ( Amer) Est GFR (Non-Af Amer) BUN/Creatinine Ratio Glucose POC Glucose 204 H Estimat Average Glucose Hemoglobin A1c Calcium Magnesium Total Bilirubin AST ALT Alkaline Phosphatase Ammonia Troponin I NT-Pro-B Natriuret Pep Total Protein Albumin Globulin Albumin/Globulin Ratio Lipase Prostate Specific Ag Pending Urine Color Dark Yellow Urine Appearance Turbid A Urine pH 5.0 Ur Specific [place] 1.028 Urine Protein 2+ H Urine Glucose (UA) Negative Urine Ketones 1+ H Urine Blood Trace H Urine Nitrite Negative Urine Bilirubin 1+ H Urine Urobilinogen Negative Ur Leukocyte Esterase 2+ H Urine WBC (Auto) >30 H Urine RBC (Auto) >30 H U Hyaline Cast (Auto) 1-5 U Epithel Cells (Auto) >30 H Urine Bacteria (Auto) Negative Ur Renal Epithelial Cell Not Reportable Urine Crystals Not Reportable Urine Yeast Not Reportable COVID-19 Eval Order SARS-CoV-2 (PCR) Diagnostic Findings Abdominal CT scan personally reviewed. PG Care Time/CCT Total # of Minutes Spent Total Time Spent with Patient: Total time spent is greater than 50% in coordination of care (as documented) at patient's floor/unit and/or counseling patient: Coding Level of Care Code 28189 Inpt Consult Level 4 Diagnoses Acute kidney injury superimposed on CKD N17.9; N18.9 EDILMA (acute kidney injury) N17.9 Hyperkalemia E87.5 Diabetic nephropathy E11.21 Nephrolithiasis N20.0
--- NOTE | 2021-03-28 12:36 | Surgery Consultation ---
Date of Consultation March 28, 2021 Assessment & Plan (1) SBO (small bowel obstruction): agree with ngt feels better con't medical care hopefully resolves with ngt decompression no abdominal pain passing flatus reducible hernia History of Present Illness Attending Physician: Yossi Izaguirre MD History of Present Illness This is a 70-year-old male with morbid obesity, coronary artery disease, adult onset diabetes mellitus, neuropathy, hypertension, COPD, SREEKANTH, BPH, recurrent calcium kidney stones, and chronic kidney disease stage IV. He was seen in ED for abdominal pain and SBO versus ileus. He had similar to a hospitalization in March 2020 attributed to a nonspecific or infectious enteritis. He has had decreased appetite and intermittent abdominal discomfort likely constipation. He uses Miralax and a stool softener chronically. He had some associated nausea but no vomiting. No fevers or chills reported. He had NGT place which has improved his pain. He is passing flatus and some small BMs. He has some mild abdominal discomfort. Allergies Allergy/AdvReac Type Severity Reaction Status Date / Time azithromycin Allergy Mild diarrhea Verified 03/27/21 19:08 Home Medications Medication Instructions Recorded Confirmed Type cholecalciferol (vitamin D3) 25 1,000 unit PO BID 08/22/18 03/27/21 History mcg (1,000 unit) tablet (Vitamin D3) furosemide 20 mg tablet 20 mg PO DAILY PRN 03/20/20 03/27/21 History acetaminophen 325 mg tablet 650 mg PO TID PRN 04/27/20 03/27/21 History bimatoprost 0.01 % eye drops 1 drp OPB HS 04/27/20 03/27/21 History (Lumigan) lactulose 10 gram/15 mL oral 10 g PO DAILY PRN #237 ml 04/29/20 03/27/21 Rx solution lancets 33 gauge ([facility] #100 ea 05/13/20 03/05/21 Rx Lancets) [facility] ([facility] ea 05/29/20 03/05/21 Rx Bed) aspirin 81 mg tablet,delayed 81 mg PO QPM 06/08/20 03/27/21 History release blood-glucose meter (True Metrix #1 ea 08/24/20 03/05/21 Rx Glucose Meter) glimepiride 2 mg tablet 3 mg PO BID #270 tab 10/22/20 03/27/21 Rx potassium citrate 15 mEq (1,620 See Rx Instructions .ROUTE 10/22/20 03/27/21 Rx mg) tablet,extended release .COMPLEX #60 tab finasteride 5 mg tablet (Proscar) 5 mg PO QAM #90 tab 11/09/20 03/27/21 Rx metformin 500 mg tablet 500 mg PO BID #180 tab 11/09/20 03/27/21 Rx rosuvastatin 40 mg tablet (Crestor) 40 mg PO DAILY #90 tab 11/09/20 03/27/21 Rx gabapentin 300 mg capsule 300 mg PO BID #180 cap 11/16/20 03/27/21 Rx metoprolol tartrate 100 mg tablet 100 mg PO BID #180 tab 11/16/20 03/27/21 Rx (Lopressor) fluticasone furoate 200 1 inh INHALATION DAILY #60 ea 11/27/20 03/27/21 Rx mcg-vilanterol 25 mcg/dose inhalation powder (Breo Ellipta) trospium 60 mg capsule,extended 60 mg PO QAM #90 cap 11/27/20 03/27/21 Rx release 24 hr insulin aspart U-100 100 unit/mL See Rx Instructions SUBCUT DAILY 12/09/20 03/27/21 Rx (3 mL) subcutaneous pen (Novolog #15 ml Flexpen U-100 Insulin aspart) pen needle, diabetic 31 gauge x #400 ea 12/09/20 03/05/21 Rx 3/16" (BD Ultra-Fine Mini Pen Needle) flash glucose scanning reader #1 ea 12/16/20 03/05/21 History (FreeStyle Nidia 2 Alpine) flash glucose sensor (FreeStyle #1 ea 12/16/20 03/05/21 History Nidia 2 Sensor) insulin degludec 200 unit/mL (3 35 unit SUBCUT DAILY #18 ml 12/28/20 03/27/21 Rx mL) subcutaneous pen (Tresiba FlexTouch U-200 insulin) clopidogrel 75 mg tablet 75 mg PO QAM #90 tab 01/11/21 03/27/21 Rx blood sugar diagnostic (True #100 ea 02/09/21 03/05/21 Rx Metrix Glucose Test Strip) lisinopril 10 mg tablet 10 mg PO DAILY #90 tab 02/16/21 03/27/21 Rx sildenafil 50 mg tablet 50 mg PO DAILY PRN #7 tab 02/16/21 03/27/21 Rx bupropion HCl 150 mg tablet,12 hr 150 mg PO BID 90 Days #180 ea 02/24/21 0 03/27/21 Rx sustained-release dulaglutide 1.5 mg/0.5 mL 1.5 mg SQ WK #6 ml 02/24/21 03/27/21 Rx subcutaneous pen injector (Trulicity) pantoprazole 40 mg tablet,delayed 40 mg PO DAILY PRN #90 tab 02/24/21 03/27/21 Rx release (Protonix) albuterol sulfate 0.63 mg/3 mL 0.63 mg CONTINUOUS NEBULIZATION 03/27/21 03/27/21 History solution for nebulization QID PRN ipratropium 0.5 mg-albuterol 3 mg 3 ml INHALATION Q4 PRN 03/27/21 03/27/21 History (2.5 mg base)/3 mL nebulization soln Patient History Medical History (Updated 03/28/21 @ 12:23 by Rehan Man DO) BPH (benign prostatic hyperplasia) CAD (coronary artery disease) Acute [place] 03/2011, complicated by 3 episodes of v fib requiring electrical shock- ZITA x2 Chronic kidney disease With recent EDILMA on CKD. COPD (chronic obstructive pulmonary disease) Severe, per pulm- 2L N/C prn (per patient, typically uses rarely/monthly) Encounter for pre-operative examination GERD (gastroesophageal reflux disease) History of [place] (myocardial infarction) Acute [place] 03/2011, complicated by 3 episodes of v fib requiring electrical shock- ZITA x2 Hypertension Hypophosphatemia Morbid obesity with BMI of 40.0-44.9, adult Nephrolithiasis Admitted to [facility] for 7 mm L ureteral stone causing hydronephrosis/EDILMA Obstructive sleep apnea of adult Patient refuses CPAP. On home oxygen therapy 2L N/C prn but largely noncompliant. Peripheral neuropathy UTI (urinary tract infection) Surgical History History of bilateral cataract extraction History of cardiac cath 2010- stents x2 History of carpal tunnel release right History of colonoscopy Colonoscopy: 03/18/19: MAC sedation at [facility] History of lithotripsy Left ESWL: 1/18/19: LMA#5 at [facility] (weight at time: 135.1kg) History of lithotripsy Left ESWL 06/07/19 [facility] History of tooth extraction Hx of transurethral resection of prostate S/P cystoscopy with ureteral stent placement recently 03/05/2020 08/23/2018. MAC. No issues. 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 Beliefs That Will Affect Care: None marital status: Current Living Situation: Spouse Other Information That Helps Us Care for You: No Feels Safe at Home: Yes Safety Concerns: Feels Safe At This Time caffeine: Yes (Tea and soda ) Dental Care, Regularly: No Physical Activity Frequency: Does not Exercise Seatbelt Use: always Sunscreen Use: No Assistive Devices: Oxygen - Continuous and Walker Review of Systems Constitutional: + anorexia; no fever and no chills Respiratory: + dyspnea; no cough and no chest congestion Cardiovascular: no chest pain Gastrointestinal: + abdominal pain, + nausea and + constipation; no vomiting (ngt) Genitourinary: no dysuria Musculoskeletal: + back pain Integumentary: no rash and no lesions Neurologic: no localized weakness and no generalized weakness Psychiatric: no behavioral changes Hematologic / Lymphatic: no easy bleeding and no easy bruising Physical Exam Constitutional: well developed, well nourished and + obese; no acute distress Eyes: PERRL ENMT: external ear and nose normal, oropharynx normal Neck: trachea midline, no thyromegaly Respiratory: normal respiratory effort, lungs clear to auscultation Cardiovascular: RRR, no murmur, no edema Gastrointestinal (Abdomen): Inspection/Auscultation: abdomen normal to inspection, + abdomen distended and normal bowel sounds; no abdominal surgical scar Percussion/Palpation: abdomen soft and + hernia (umbilical, reducible); abdomen nontender and no guarding Musculoskeletal: Head/Neck/Chest: normocephalic and head atraumatic Skin: no rashes, warm and dry Genitourinary: no inguinal hernias Results & Data ([facility]) Vital Signs (Past 12 Hours) Vital Signs Temp Pulse Pulse Pulse Resp BP Pulse Ox 03/28/21 09:18 127/62 03/28/21 07:54 87 87/56 L 03/28/21 07:30 37 C 87 16 85/56 L 96 03/28/21 01:20 36.6 C 86 20 98/[address] SCAN OF THE ABDOMEN AND PELVIS WITHOUT IV CONTRAST CLINICAL HISTORY: Mid abdominal pain. COMPARISON STUDY: Abdominal CT dated 06/08/2020. TECHNIQUE: CT scan of the abdomen and pelvis is performed from the lung bases to the proximal femora. Images are reviewed in the axial, sagittal, and coronal planes. IV contrast was not administered for this examination. Note that the examination was performed in suboptimal fashion without oral and IV contrast. A dose lowering technique was utilized adhering to the principles of ALARA. CT DOSE: 1597.09 mGy.cm FINDINGS: Lung bases: The heart is normal in size and without pericardial effusion. A coronary artery stent is suggested. There is a tiny hiatal hernia. There are scattered calcified granulomas. A large bleb is again seen at the left lung base. The lung bases are otherwise clear noting bibasilar scarring/atelectasis. Liver: The unenhanced liver is normal in size, contour, and attenuation. There is no intrahepatic biliary ductal dilatation. Gallbladder: There are calcified gallstones with no CT evidence of acute cholecystitis. Spleen: Normal in size and attenuation. There is a calcified splenic granuloma. Pancreas: The unenhanced pancreas is mildly atrophic and grossly unremarkable. Adrenal glands: A 4.1 cm right adrenal nodule containing macroscopic fat is unchanged from previous. The left adrenal gland is normal in appearance. Kidneys: The unenhanced kidneys are atrophic and without hydronephrosis. There are least 2 nonobstructing right renal calculi which measure up to 6 mm. A 3 mm nonobstructing calculus is seen in the left lower pole. There is no ureteral stone. Cortical scarring is suggested in the left upper pole and there is a 1.3 cm left upper pole cyst. There is no evidence of contour deforming renal mass lesion. Abdominal vasculature: There is moderate atherosclerotic calcification and ectasia of the abdominal aorta. Bowel: The stomach and proximal small bowel loops are distended and fluid- filled. Small bowel loops measure up to 4.6 cm diameter. Question a transition point in the midabdomen on image #20 and 53. The distal small bowel is relatively decompressed. Findings are consistent with a high-grade small bowel obstruction. There is no pneumatosis intestinalis or portal venous gas. No focally thick walled bowel loops are identified. Moderate fecal retention is seen throughout the colon. The appendix is not visualized. Peritoneum: There is no intraperitoneal free air or abdominal ascites. There is a fat-containing umbilical hernia. Lymphadenopathy: None. Pelvic viscera: The prostate gland is diminutive and heterogeneous. The bladder is decompressed and not well assessed. There is a fat-containing right inguinal hernia. Skeletal structures: The skeletal structures are osteopenic. There is mild lumbosacral spondylosis. No lytic or blastic lesions are seen. IMPRESSION: 1. Findings are consistent with a high-grade small bowel obstruction. Question a transition point in the midabdomen, and the distal small bowel loops are relatively decompressed. 2. No intraperitoneal free air is identified. No focally thick walled bowel loops are identified and there is no pneumatosis intestinalis or portal venous gas. 3. Bilateral nephrolithiasis. 4. Cholelithiasis. 5. Moderate fecal retention is seen throughout the colon. 6. Additional findings as above.
[2021-03-28] MEDS ORDERED: PIPERACILLIN/TAZOBACTAM 2.25 GM in DEXTROSE 5% 100 ML IV SCH (13:56)
[2021-03-28] MEDS ORDERED: NORMOSOL-R 500 ML IV ONE (13:59)
--- NOTE | 2021-03-28 14:07 | Hospitalist Progress Note ---
Date of Service March 28, 2021 Assessment & Plan (1) SBO (small bowel obstruction): Plan: * High-grade small bowel obstruction- ? Infectious etiology * Questionable transition point mid abdomen * Continue n.p.o. status for bowel rest * cont NG tube at low intermittent suction for GI decompression * Zofran 4 mg IV every 6 hours as needed * Famotidine 20 mg IV every 12 hours * Continue Zosyn empirically as this may be infectious in its etiology but decreased dose for creatinine clearance of 25 * Given high stool burden, will stimulate from below and provide lactulose re ctally (especially in the setting of a mildly elevated ammonia level) * Consult general surgeryappreciate recommendations (2) Acute kidney injury superimposed on CKD: Plan: * Patient now with oliguria/anuria, mild uremia, and hyperkalemia. Blood gas obtained and with his tachypnealikely having respiratory compensation for metabolic acidosis. * Nephrology consultedappreciate recommendations. Plan of care discussed with Dr. Ravi. Plan is to transition NSS to Normosol with a 500 cc bolus followed by 100 cc an hour maintenance. If no urinary output, may need to consider ultrafiltration/acute HD?. * Monitor strict I's and O's * Monitor labs closely * Nephrotoxic meds on hold * Antibiotic therapy being renally adjusted (3) Hyperkalemia: Plan: * Hyperkalemia in the setting of acute/chronic kidney disease- * Potassium 5.6 currently. 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 * lantus 10U hs in addition to regular per SS/carb ration (given NPO status and regular being slightly longer acting than log). Monitor BS Q6h (6) Depression: Plan: * Hold bupropion given NPO status (7) Enlarged prostate with lower urinary tract symptoms (LUTS): Plan: * Hold finasteride. * Jarquin catheter in place for strict I&Os (8) Dyslipidemia: Plan: * Hold rosuvastatin given NPO status (9) Diabetic peripheral neuropathy: Plan: * Hold gabapentin (10) Diabetic gastroparesis: Plan: Likely an undiagnosed issue. Patient reports that it is not unusual for him to go 5 to 6 days without a bowel movement. Consideration for improved glucose control, and once this obstruction has been resolved, at some point in the future should consider medical treatment Plan: * add lovenox for DVT prophylaxis * plan of care D/W Dr. Gonzalez. Further orders as warrented Admission and Anticipated Discharge Date Admission Date: March 27, 2021 Subjective Mr. Stephenson is a 70 y/o WM with a PNHx of NIDDM, CKD, depression, morbid obesity/SREEKANTH, recurrent nephrolithiasis, COPD- O2 dependent, and GERD. He was hospitalizED ON 03/27 with a high grade SBO. He has a virgin abd. WBC count was 17K with a left shift and he was empirically started on Zosyn. In addition to his SBO- he is noted to have A/CKD. Cr. upon presentation was 3.2 (with a baseline in the mid to high 2's). He has NSS running at 80cc/hr. Curren tly, Has no urine output. Jarquin catheter inserted by nurse during my exam with only <40cc urine. His potassium is uptrending (5.6 today). Anion gap is closed at 4.0. He is c/o SOB but is not hypoxic (96% on 2L- which he chronically wears O2). In terms of his SBO- reports that his abd pain is improving. Is passing flatus. Has not yet moved his bowel. There is a significant stool burden seen on his CT done yesterday. FU imaging today (KUB) showing persistent dilated loops of bowel. Given his excessive somnolent state this am (did not receive any pain medication overnight) and his A/CKD-- labs obtained ammonia elevated at 42.2. AB.32/47/93/24. BNP 164 WBC count [id number] today Review of Systems Review of Systems: All systems reviewed and are unremarkable except as noted in HPI and below Reports mild shortness of breath, no urinary output. Denies fevers, chills, headache, nasal congestion, sore throat, cough, chest pain, shortness of breath, abdominal pain, nausea, vomiting, dysuria, hematuria, frequency, skin lesions or rashes. Physical Exam Physical Exam: General: Resting comfortably in his bedside chair. He is excessively somnolent but arousable. Appears mildly ill but not toxic Neck: No JVD. Negative hepatojugular reflex Cardiac: RRR but distant Lungs: Mild tachypnea noted at 24 breaths/min. Diminished breath sounds throughout without wheezes, rales or rhonchi Abdomen: Abdomen mildly distended with hypoactive bowel sounds throughout. Slightly firm but nontender in all quadrants Extremities: No peripheral clubbing cyanosis or edema Neuro: A&O X4 cranial nerves II through XII are grossly intact no focal neuro deficits Skin: No obvious skin lesions or rashes Results & Data Results & Data ([facility]) Vital Signs (Past 12 Hours) Vital Signs Temp Pulse Pulse Pulse Resp BP Pulse Ox 03/28/21 13:29 94 H 03/28/21 12:51 37.0 C 95 H 22 124/88 94 03/28/21 09:18 127/62 03/28/21 07:54 87 87/56 L 03/28/21 07:30 37 C 87 16 85/56 L 96 Laboratory Results 03/28/21 05:59 03/28/21 05:59 Diagnostic Findings CXR: CHEST: Cardiac silhouette is mildly enlarged. Mild left greater than right bibasilar opacities suggestive of atelectasis. No pneumothorax, pleural effusion, or overt pulmonary edema. Degenerative changes of the shoulders and spine. Enteric tube courses below the diaphragm. KUB: Nonobstructive bowel gas pattern. Persistent air-filled dilated loops of small bowel measure up to 4.4 cm transversely. Gaseous distended loops of large bowel are also present. No pneumatosis or pneumoperitoneum identified. No urolith. Distal tip of enteric tube projects over the gastroesophageal junction. 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, with long-term current use of insulin E11.21; E11.65; Z79.4 Acute kidney injury superimposed on CKD N17.9; N18.9 Depression F32.9 Depression Type: unspecified Enlarged prostate with lower urinary tract symptoms (LUTS) N40.1; R39.12 Lower urinary tract symptom detail: weak urinary stream Dyslipidemia E78.5 Diabetic peripheral neuropathy E11.42 Diabetic gastroparesis E11.43; K31.84 Time Spent (min) 60 (1) Depression Depression Type: unspecified Qualified Code(s): F32.9 - Major depressive disorder, single episode, unspecified (2) Enlarged prostate with lower urinary tract symptoms (LUTS) Lower urinary tract symptom detail: weak urinary stream Qualified Code(s): N40.1 - Benign prostatic hyperplasia with lower urinary tract symptoms; R39.12 - Poor urinary stream
[2021-03-28] MEDS ORDERED: NORMOSOL-R 1,000 ML IV SCH (14:15)
[2021-03-28] MEDS: LACTULOSE 200 GM, WATER, STERILE IRRIG 700 ML, BARCODE IDENTIFIER 1 EA PR SCH ×2 (15:31→22:23)
[2021-03-28] MEDS: UNIT DOSE COMPOUND PR SCH (15:32)
[2021-03-28 17:00] LABS: BUN Creatinine Ratio 13.2 (10-20); Calcium 7.9 mg/dl (8.5-10.1); Creatinine Clr Calc Pharmacy 20.3 ml/min; Est GFR (African American) 13.5 ml/min; Est GFR (Non-African American) 11.6 ml/min; Potassium 5.8 mmol/L (3.5-5.1)
[2021-03-28] MEDS: INSULIN HUMAN REGULAR SC SCH (17:59)
[2021-03-28] MEDS: INSULIN GLARGINE SOLOSTAR 100 UNITS/ML 3 ML PEN SC SCH (22:24)
[2021-03-28] MEDS ORDERED: NYSTATIN CR 15 GM TUBE EXT PRN (23:40)
[2021-03-29] MEDS: NORMOSOL-R 1,000 ML IV SCH ×2 (00:14→08:13)
[2021-03-29] MEDS: INSULIN HUMAN REGULAR SC SCH ×4 (00:39→17:49)
[2021-03-29] MEDS: PIPERACILLIN/TAZOBACTAM 4.5 GM in DEXTROSE 5% 100 ML IV SCH ×3 (00:56→21:25)
[2021-03-29] MEDS: UNIT DOSE COMPOUND PR SCH ×4 (00:57→22:08)
[2021-03-29] MEDS: LACTULOSE 200 GM, WATER, STERILE IRRIG 700 ML, BARCODE IDENTIFIER 1 EA PR SCH ×3 (06:13→22:08)
[2021-03-29 07:50] LABS: Estimated Average Glucose 174 mg/dl; Hemoglobin A1C 7.7 % (4.5-5.6)
[2021-03-29 07:57] LABS: Basophils # (auto) 0.01 K/uL (0-0.2); Basophils % (auto) 0.1 %; Eosinophils % (auto) 1.5 %; Hematocrit (blood only) 38.8 % (42-52); Hemoglobin 11.5 g/dL (14.0-18.0); Immature Granulocytes # (auto) 0.01 K/uL (0.00-0.02); Immature Granulocytes % (auto) 0.1 %; Lymphocytes # (auto) 0.65 K/uL (1.2-3.4); Lymphocytes % (auto) 9.5 %; Mean Corpuscular Hemoglobin 25.7 pg (25-34); Mean Corpuscular Hgb Conc 29.6 g/dL (32-36); Mean Corpuscular Volume 86.6 fL (80-100); Mean Platelet Volume 9.6 fL (7.4-10.4); Monocytes # (auto) 0.88 K/uL (0.11-0.59); Monocytes % (auto) 12.8 %; Neutrophils # (auto) 5.21 K/uL (1.4-6.5); Platelet Count 158 K/uL (130-400); RDW Coefficient of Variation 18.7 % (11.5-14.5); RDW Standard Deviation 59.2 fL (36.4-46.3); Red Blood Count 4.48 M/uL (4.7-6.1); White Blood Count 6.86 K/uL (4.8-10.8)
[2021-03-29] MEDS: ENOXAPARIN INJ 30 MG/0.3 ML SYR SQ SCH (08:14)
[2021-03-29 08:24] LABS: Albumin Level 2.3 gm/dl (3.4-5.0); BUN Creatinine Ratio 14.9 (10-20); Calcium 8.5 mg/dl (8.5-10.1); Creatinine Clr Calc Pharmacy 22.6 ml/min; Est GFR (African American) 15.3 ml/min; Est GFR (Non-African American) 13.2 ml/min; Magnesium 2.4 mg/dl (1.8-2.4); Potassium 4.4 mmol/L (3.5-5.1)
[2021-03-29 08:33] LABS: Albumin Globulin Ratio 0.6 (0.9-2); Bilirubin,Total 0.5 mg/dl (0.2-1); Globulin 3.7 gm/dl (2.5-4.0)
--- NOTE | 2021-03-29 11:35 | Surgery Progress Note ---
Date of Service March 29, 2021 Assessment & Plan (1) SBO (small bowel obstruction): Plan: KUB yesterday (03/28/21) showing nonobstructive bowel gas pattern, gas in colon abdomen is benign today, no abdominal pain, n/v pulled NGT this am + bowel function Plan: No acute surgical intervention required at this time Consider clear liquids, advised to take slowly should follow-up with GI as outpatient for discussion of colonoscopy as he has never had one Continue medical management Dr. Mariee has seen and examined pt, agrees with above. Admission and Anticipated Discharge Date Admission Date: March 27, 2021 Subjective lying in bed, sleeping upon entering room states he is not having any abdominal pain , pulled his NGT out this morning no nausea or vomiting passing a lot of gas, last bowel movement was this morning does not feel bloated Physical Exam Constitutional: + morbidly obese Respiratory: normal respiratory effort; no respiratory distress and no labored breathing Gastrointestinal (Abdomen): Inspection/Auscultation: abdomen normal to inspection; abdomen not distended Percussion/Palpation: abdomen soft and + hernia (reducible umbilical hernia); abdomen nontender, no guarding and abdomen not rigid Psychiatric: Orientation: alert and oriented x 3 Results & Data ([facility]) Vital Signs (Past 12 Hours) Vital Signs Temp Pulse Pulse Resp BP Pulse Ox 03/29/21 08:00 108 H 03/29/21 07:59 37.5 C 101 H 20 122/74 97 03/29/21 03:36 36.8 C 105 H 20 134/75 94 Laboratory Results 03/29/21 03/29/21 03/29/21 Range/Units 07:42 07:35 07:35 WBC 6.86 (4.8-10.8) K/uL RBC 4.48 L (4.7-6.1) M/uL Hgb 11.5 L (14.0-18.0) g/dL Hct 38.8 L (42-52) % MCV 86.6 (80-100) fL MCH 25.7 (25-34) pg MCHC 29.6 L (32-36) g/dL RDW Std Deviation 59.2 H (36.4-46.3) fL RDW Coeff of Cirilo 18.7 H (11.5-14.5) % Plt Count 158 (130-400) K/uL MPV 9.6 (7.4-10.4) fL Immature Gran % (Auto) 0.1 % Neut % (Auto) 76.0 % Lymph % (Auto) 9.5 % Clarke % (Auto) 12.8 % Eos % (Auto) 1.5 % Baso % (Auto) 0.1 % Neut # (Auto) 5.21 (1.4-6.5) K/uL Lymph # (Auto) 0.65 L (1.2-3.4) K/uL Clarke # (Auto) 0.88 H (0.11-0.59) K/uL Eos # (Auto) 0.10 (0-0.5) K/uL Baso # (Auto) 0.01 (0-0.2) K/uL Immature Gran # (Auto) 0.01 (0.00-0.02) K/uL Sodium 143 (136-145) mmol/L Potassium 4.4 D (3.5-5.1) mmol/L Chloride 112 H (98-107) mmol/L Carbon Dioxide 26 (21-32) mmol/L Anion Gap 5.0 (3-11) BUN 64 H (7-18) mg/dl Creatinine 4.29 H D (0.6-1.4) mg/dl Est Cr Clr Drug Dosing 22.6 ml/min Est GFR ( Amer) 15.3 ml/min Est GFR (Non-Af Amer) 13.2 ml/min BUN/Creatinine Ratio 14.9 (10-20) Glucose 134 H (70-99) mg/dl POC Glucose (70-99) mg/dl Estimat Average Glucose mg/dl Hemoglobin A1c (4.5-5.6) % Calcium 8.5 (8.5-10.1) mg/dl Magnesium 2.4 (1.8-2.4) mg/dl Total Bilirubin 0.5 (0.2-1) mg/dl AST 9 L (15-37) U/L ALT 14 (12-78) U/L Alkaline Phosphatase 83 (45-117) U/L Ammonia 18.4 (11-32) umol/L Total Creatine Kinase (39-308) U/L Total Protein 6.0 L (6.4-8.2) gm/dl Albumin 2.3 L (3.4-5.0) gm/dl Globulin 3.7 (2.5-4.0) gm/dl Albumin/Globulin Ratio 0.6 L (0.9-2) Prostate Specific Ag (0-4) ng/ml 03/29/21 03/29/21 03/28/21 Range/Units 05:02 00:12 20:27 WBC (4.8-10.8) K/uL RBC (4.7-6.1) M/uL Hgb (14.0-18.0) g/dL Hct (42-52) % MCV (80-100) fL MCH (25-34) pg MCHC (32-36) g/dL RDW Std Deviation (36.4-46.3) fL RDW Coeff of Cirilo (11.5-14.5) % Plt Count (130-400) K/uL MPV (7.4-10.4) fL Immature Gran % (Auto) % Neut % (Auto) % Lymph % (Auto) % Clarke % (Auto) % Eos % (Auto) % Baso % (Auto) % Neut # (Auto) (1.4-6.5) K/uL Lymph # (Auto) (1.2-3.4) K/uL [place] # (Auto) (0.11-0.59) K/uL Eos # (Auto) (0-0.5) K/uL Baso # (Auto) (0-0.2) K/uL Immature Gran # (Auto) (0.00-0.02) K/uL Sodium (136-145) mmol/L Potassium (3.5-5.1) mmol/L Chloride (98-107) mmol/L Carbon Dioxide (21-32) mmol/L Anion Gap (3-11) BUN (7-18) mg/dl Creatinine (0.6-1.4) mg/dl Est Cr Clr Drug Dosing ml/min Est GFR ( Amer) ml/min Est GFR (Non-Af Amer) ml/min BUN/Creatinine Ratio (10-20) Glucose (70-99) mg/dl POC Glucose 132 H 151 H 170 H (70-99) mg/dl Estimat Average Glucose mg/dl Hemoglobin A1c (4.5-5.6) % Calcium (8.5-10.1) mg/dl Magnesium (1.8-2.4) mg/dl Total Bilirubin (0.2-1) mg/dl AST (15-37) U/L ALT (12-78) U/L Alkaline Phosphatase (45-117) U/L Ammonia (11-32) umol/L Total Creatine Kinase (39-308) U/L Total Protein (6.4-8.2) gm/dl Albumin (3.4-5.0) gm/dl Globulin (2.5-4.0) gm/dl Albumin/Globulin Ratio (0.9-2) Prostate Specific Ag (0-4) ng/ml 03/28/21 03/28/21 03/28/21 Range/Units 17:55 16:08 12:00 WBC (4.8-10.8) K/uL RBC (4.7-6.1) M/uL Hgb (14.0-18.0) g/dL Hct (42-52) % MCV (80-100) fL MCH (25-34) pg MCHC (32-36) g/dL RDW Std Deviation (36.4-46.3) fL RDW Coeff of Cirilo (11.5-14.5) % Plt Count (130-400) K/uL MPV (7.4-10.4) fL Immature Gran % (Auto) % Neut % (Auto) % Lymph % (Auto) % Clarke % (Auto) % Eos % (Auto) % Baso % (Auto) % Neut # (Auto) (1.4-6.5) K/uL Lymph # (Auto) (1.2-3.4) K/uL Clarke # (Auto) (0.11-0.59) K/uL Eos # (Auto) (0-0.5) K/uL Baso # (Auto) (0-0.2) K/uL Immature Gran # (Auto) (0.00-0.02) K/uL Sodium 143 (136-145) mmol/L Potassium 5.8 H (3.5-5.1) mmol/L Chloride 111 H (98-107) mmol/L Carbon Dioxide 25 (21-32) mmol/L Anion Gap 8.0 (3-11) BUN 63 H (7-18) mg/dl Creatinine 4.78 H* D (0.6-1.4) mg/dl Est Cr Clr Drug Dosing 20.3 ml/min Est GFR ( Amer) 13.5 ml/min Est GFR (Non-Af Amer) 11.6 ml/min BUN/Creatinine Ratio 13.2 (10-20) Glucose 190 H (70-99) mg/dl POC Glucose 165 H 204 H (70-99) mg/dl Estimat Average Glucose mg/dl Hemoglobin A1c (4.5-5.6) % Calcium 7.9 L (8.5-10.1) mg/dl Magnesium (1.8-2.4) mg/dl Total Bilirubin (0.2-1) mg/dl AST (15-37) U/L ALT (12-78) U/L Alkaline Phosphatase (45-117) U/L Ammonia (11-32) umol/L Total Creatine Kinase 81 (39-308) U/L Total Protein (6.4-8.2) gm/dl Albumin (3.4-5.0) gm/dl Globulin (2.5-4.0) gm/dl Albumin/Globulin Ratio (0.9-2) Prostate Specific Ag (0-4) ng/ml 03/28/21 03/28/21 Range/Units 10:15 05:59 WBC (4.8-10.8) K/uL RBC (4.7-6.1) M/uL Hgb (14.0-18.0) g/dL Hct (42-52) % MCV (80-100) fL MCH (25-34) pg MCHC (32-36) g/dL RDW Std Deviation (36.4-46.3) fL RDW Coeff of Cirilo (11.5-14.5) % Plt Count (130-400) K/uL MPV (7.4-10.4) fL Immature Gran % (Auto) % Neut % (Auto) % Lymph % (Auto) % Clarke % (Auto) % Eos % (Auto) % Baso % (Auto) % Neut # (Auto) (1.4-6.5) K/uL Lymph # (Auto) (1.2-3.4) K/uL Clarke # (Auto) (0.11-0.59) K/uL Eos # (Auto) (0-0.5) K/uL Baso # (Auto) (0-0.2) K/uL Immature Gran # (Auto) (0.00-0.02) K/uL Sodium (136-145) mmol/L Potassium (3.5-5.1) mmol/L Chloride (98-107) mmol/L Carbon Dioxide (21-32) mmol/L Anion Gap (3-11) BUN (7-18) mg/dl Creatinine (0.6-1.4) mg/dl Est Cr Clr Drug Dosing ml/min Est GFR ( Amer) ml/min Est GFR (Non-Af Amer) ml/min BUN/Creatinine Ratio (10-20) Glucose (70-99) mg/dl POC Glucose (70-99) mg/dl Estimat Average Glucose 174 mg/dl Hemoglobin A1c 7.7 H (4.5-5.6) % Calcium (8.5-10.1) mg/dl Magnesium (1.8-2.4) mg/dl Total Bilirubin (0.2-1) mg/dl AST (15-37) U/L ALT (12-78) U/L Alkaline Phosphatase (45-117) U/L Ammonia (11-32) umol/L Total Creatine Kinase (39-308) U/L Total Protein (6.4-8.2) gm/dl Albumin (3.4-5.0) gm/dl Globulin (2.5-4.0) gm/dl Albumin/Globulin Ratio (0.9-2) Prostate Specific Ag 0.047 (0-4) ng/ml Diagnostic Findings XR chest 1V portable, XR KUB/Abdomen 1 view 03/28/2021 HISTORY: 70 years-old Male sob and wheezing/ ?CHF vs AECOPD acute shortness of breath with wheezing and acute generalized abdominal pain COMPARISON: CT abdomen pelvis 03/27/2021, chest radiograph 08/14/2020 TECHNIQUE: Portable AP view the chest with KUB radiograph FINDINGS: CHEST: Cardiac silhouette is mildly enlarged. Mild left greater than right bibasilar opacities suggestive of atelectasis. No pneumothorax, pleural effusion, or overt pulmonary edema. Degenerative changes of the shoulders and spine. Enteric tube c ourses below the diaphragm. KUB: Nonobstructive bowel gas pattern. Persistent air-filled dilated loops of small bowel measure up to 4.4 cm transversely. Gaseous distended loops of large bowel are also present. No pneumatosis or pneumoperitoneum identified. No urolith. Distal tip of enteric tube projects over the gastroesophageal junction. IMPRESSION: 1. No acute process of the chest. 2. Persistent dilated loops of small bowel with air also present within the colon. 3. Distal tip of enteric tube projects over the gastroesophageal junction. Advancement recommended.
--- NOTE | 2021-03-29 12:53 | XRay Report ---
XR KUB/Abdomen 1 view CLINICAL HISTORY: fu on sbo COMPARISON STUDY: March 28, 2021 FINDINGS: Interval worsening of gaseous dilatation of the small and large loops of bowel. Focal dilatation of l oop of small bowel within left upper quadrant is measuring up to 9.9 cm in size. Large amount of stool is seen within right hemiabdomen and pelvic region. Interval removal of the gastric tube. IMPRESSION: 1. Significant interval worsening of the small bowel dilatation since prior study performed on Augus 2020 at 9:40 hours. Interval removal of the gastric tube. Findings will be sent to the patient's unit. ACT 112: Negative or not required by law. The above report was generated using voice recognition software. It may contain grammatical, syntax o r spelling errors. Electronically signed by: Eve Méndez DO 03/29/2021 12:52 PM
--- NOTE | 2021-03-29 16:06 | Nephrology Progress Note ---
Date of Service March 29, 2021 Assessment & Plan (1) Acute kidney injury superimposed on CKD: Plan: UOP improving with positive fluid balance. Continue IV normosol to encourage positive ~1 L daily. Current infusion 100 ml/hr. Jarquin to gravity. UA/microscopy notable for >30 WBC/hpf and >30 RBC/hpf. Will monitor. No obstruction on CT. Metabolic profile to be monitored twice daily. Strict I/O's. Medications appropriate for kidney dysfunction. I would consider a dose reduction of Zosyn based on kidney dysfunction, deferred to pharmacy. Rosuvastatin home dose is excessive for kidney function and the medication has been held. CK thankfully not elevated. Lisinopril, glimepiride, and metformin held. (2) EDILMA (acute kidney injury): Plan: No emergent indication for [employer]. Potential future indications discussed with Adonis and his . Goals of care reviewed. Adonis is agreeable to dialysis if needed. (3) Hyperkalemia: Plan: K citrate and CAR held. Switch NSS to normosol. IVF to enourage UOP. (4) Diabetic nephropathy: Plan: Hold metformin, glimepiride, and lisinopril. Baseline creatinine 2.5-3.0 mg/dL. (5) Nephrolithiasis: Plan: CT reviewed. Hold K citrate. Admission and Anticipated Discharge Date Admission Date: March 27, 2021 Subjective No acute events overnight. Adonis was feeling very tired today but otherwise well. He denies any breathing difficulty. BM with enema yesterday. No abdominal pain. No nausea or vomiting. Review of Systems Review of Systems: All systems reviewed & are unremarkable except as noted in HPI & below Physical Exam Constitutional: well developed and + morbidly obese; no acute distress Eyes: no scleral abnormality and no corneal abnormality ENMT: Mouth: + dry oral mucous membranes; no oral mucosal abnormality Neck: normal visual inspection and trachea midline Respiratory: normal respiratory effort Auscultation: lungs clear to auscultation bilaterally and + diminished lung sounds; no rales and no rhonchi Cardiovascular: Rate/Rhythm: regular rate Heart Sounds: normal S1 and normal S2 Extremities: normal capillary refill, + pedal edema and + varicosities Gastrointestinal (Abdomen): Inspection/Auscultation: + abdomen distended and + hypoactive bowel sounds Percussion/Palpation: + abdomen tender and + dullness to percussion; no guarding Musculoskeletal: Extremities: no cyanosis and no clubbing Skin: + turgor decreased; no lesions Neurologic: Motor/Sensory: no tremor and no asterixis Psychiatric: Orientation: alert and oriented x 3 Results & Data ([facility]) Vital Signs (Past 12 Hours) Vital Signs Temp Pulse Pulse Resp BP Pulse Ox 03/29/21 12:18 37.3 C 97 H 21 134/69 94 03/29/21 08:00 108 H 03/29/21 07:59 37.5 C 101 H 20 122/74 97 Laboratory Results Laboratory Results - last 24 hr 03/28/21 03/28/21 03/28/21 05:59 16:08 17:55 WBC RBC Hgb Hct MCV MCH MCHC RDW Std Deviation RDW Coeff of Cirilo Plt Count MPV Immature Gran % (Auto) Neut % (Auto) Lymph % (Auto) [place] % (Auto) Eos % (Auto) Baso % (Auto) Neut # (Auto) Lymph # (Auto) [place] # (Auto) Eos # (Auto) Baso # (Auto) Immature Gran # (Auto) Sodium 143 Potassium 5.8 H Chloride 111 H Carbon Dioxide 25 Anion Gap 8.0 BUN 63 H Creatinine 4.78 H* D Est Cr Clr Drug Dosing 20.3 Est GFR ( Amer) 13.5 Est GFR (Non-Af Amer) 11.6 BUN/Creatinine Ratio 13.2 Glucose 190 H POC Glucose 165 H Estimat Average Glucose 174 Hemoglobin A1c 7.7 H Calcium 7.9 L Magnesium Total Bilirubin AST ALT Alkaline Phosphatase Ammonia Total Creatine Kinase 81 Total Protein Albumin Globulin Albumin/Globulin Ratio 03/28/21 03/29/21 03/29/21 20:27 00:12 05:02 WBC RBC Hgb Hct MCV MCH MCHC RDW Std Deviation RDW Coeff of Cirilo Plt Count MPV Immature Gran % (Auto) Neut % (Auto) Lymph % (Auto) [place] % (Auto) Eos % (Auto) Baso % (Auto) Neut # (Auto) Lymph # (Auto) [place] # (Auto) Eos # (Auto) Baso # (Auto) Immature Gran # (Auto) Sodium Potassium Chloride Carbon Dioxide Anion Gap BUN Creatinine Est Cr Clr Drug Dosing Est GFR ( Amer) Est GFR (Non-Af Amer) BUN/Creatinine Ratio Glucose POC Glucose 170 H 151 H 132 H Estimat Average Glucose Hemoglobin A1c Calcium Magnesium Total Bilirubin AST ALT Alkaline Phosphatase Ammonia Total Creatine Kinase Total Protein Albumin Globulin Albumin/Globulin Ratio 03/29/21 03/29/21 03/29/21 07:35 07:35 07:42 WBC 6.86 RBC 4.48 L Hgb 11.5 L Hct 38.8 L MCV 86.6 MCH 25.7 MCHC 29.6 L RDW Std Deviation 59.2 H RDW Coeff of Cirilo 18.7 H Plt Count 158 MPV 9.6 Immature Gran % (Auto) 0.1 Neut % (Auto) 76.0 Lymph % (Auto) 9.5 [place] % (Auto) 12.8 Eos % (Auto) 1.5 Baso % (Auto) 0.1 Neut # (Auto) 5.21 Lymph # (Auto) 0.65 L [place] # (Auto) 0.88 H Eos # (Auto) 0.10 Baso # (Auto) 0.01 Immature Gran # (Auto) 0.01 Sodium 143 Potassium 4.4 D Chloride 112 H Carbon Dioxide 26 Anion Gap 5.0 BUN 64 H Creatinine 4.29 H D Est Cr Clr Drug Dosing 22.6 Est GFR ( Amer) 15.3 Est GFR (Non-Af Amer) 13.2 BUN/Creatinine Ratio 14.9 Glucose 134 H POC Glucose Estimat Average Glucose Hemoglobin A1c Calcium 8.5 Magnesium 2.4 Total Bilirubin 0.5 AST 9 L ALT 14 Alkaline Phosphatase 83 Ammonia 18.4 Total Creatine Kinase Total Protein 6.0 L Albumin 2.3 L Globulin 3.7 Albumin/Globulin Ratio 0.6 L 03/29/21 03/29/21 12:05 15:46 WBC RBC Hgb Hct MCV MCH MCHC RDW Std Deviation RDW Coeff of Cirilo Plt Count MPV Immature Gran % (Auto) Neut % (Auto) Lymph % (Auto) [place] % (Auto) Eos % (Auto) Baso % (Auto) Neut # (Auto) Lymph # (Auto) [place] # (Auto) Eos # (Auto) Baso # (Auto) Immature Gran # (Auto) Sodium Pending Potassium Pending Chloride Pending Carbon Dioxide Pending Anion Gap Pending BUN Pending Creatinine Pending Est Cr Clr Drug Dosing Pending Est GFR ( Amer) Pending Est GFR (Non-Af Amer) Pending BUN/Creatinine Ratio Pending Glucose Pending POC Glucose 143 H Estimat Average Glucose Hemoglobin A1c Calcium Pending Magnesium Total Bilirubin AST ALT Alkaline Phosphatase Ammonia Total Creatine Kinase Total Protein Albumin Globulin Albumin/Globulin Ratio PG Care Time/CCT Total # of Minutes Spent Total Time Spent with Patient: Total time spent is greater than 50% in coordination of care (as documented) at patient's floor/unit and/or counseling patient: Coding Level of Care Code 05547 Subseq Hosp Care Lvl 3 Diagnoses Acute kidney injury superimposed on CKD N17.9; N18.9 EDILMA (acute kidney injury) N17.9 Hyperkalemia E87.5 Diabetic nephropathy E11.21 Nephrolithiasis N20.0
[2021-03-29 16:22] LABS: BUN Creatinine Ratio 15.7 (10-20); Calcium 8.4 mg/dl (8.5-10.1); Creatinine Clr Calc Pharmacy 26.6 ml/min; Est GFR (African American) 18.7 ml/min; Est GFR (Non-African American) 16.1 ml/min; Potassium 4.4 mmol/L (3.5-5.1)
[2021-03-29] MEDS ORDERED: NORMOSOL-R 1,000 ML IV SCH (16:30)
--- NOTE | 2021-03-29 16:35 | Hospitalist Progress Note ---
Date of Service March 29, 2021 Assessment & Plan (1) SBO (small bowel obstruction): Plan: * High-grade small bowel obstruction- ? Infectious etiology * Questionable transition point mid abdomen * Continue n.p.o. status for bowel rest * NGT inadvertently removed by patient. Although follow-up KUB appears worse, he is showing favorable clinical response. May be a radiographic lag on imaging. * General surgery on boardappreciate recommendations * Hold off on reinsertion of NGT for now. If patient develops worsening pain, nausea/vomiting or worsening abdominal distentionwe will reinsert NGT. For now, keep patient NPO. Obtain SBFT in a.m. * Zofran 4 mg IV every 6 hours as needed * Famotidine 20 mg IV every 12 hours. PPI being avoided given A/CKD * Continue Zosyn empirically as this may be infectious in its etiology but decreased dose for creatinine clearance of 25 * is sp lactulose (rectally) for stool burden * will need colonoscopy as OP (2) Acute kidney injury superimposed on CKD: Plan: * When seen yesterday, he was aneuric with uremia, hyperkalemia and was tachypneic due to respiratory compensation for his metabolic acidosis. * Patient being hydrated with Normosol and nephrology on board. Renal function improving as urinary output has increased and his creatinine is downtrending. Potassium level has normalized. Mentation has cleared * Appreciate recommendations from nephrology * Continue to monitor strict I's and O's * Continue to monitor labs closely * Nephrotoxic meds on hold * Antibiotic therapy being renally adjusted (3) Hyperkalemia: Plan: * Hyperkalemia in the setting of acute/chronic kidney disease- * Has since normalized with improving renal function * Follow-up labs in a.m. to trend (4) Hypertension: Plan: * Medications remain on hold for now. Yesterday, was marginally hypotensive. 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 * lantus 10U hs in addition to regular per SS/carb ration (given NPO status and regular being slightly longer acting than log). Monitor BS Q6h--> blood sugars currently controlled at 138, 131, 151, 134, 190 (6) Depression: Plan: * Hold bupropion given NPO status (7) Enlarged prostate with lower urinary tract symptoms (LUTS): Plan: * Hold finasteride. * Jarquin catheter in place for strict I&Os (8) Dyslipidemia: Plan: * Hold rosuvastatin given NPO status (9) Diabetic peripheral neuropathy: Plan: * Hold gabapentin (10) Diabetic gastroparesis: Plan: Likely an undiagnosed issue. Patient reports that it is not unusual for him to go 5 to 6 days without a bowel movement. Consideration for improved glucose control, and once this obstruction has been resolved, at some point in the future should consider medical treatment Plan: * lovenox for DVT prophylaxis * plan of care D/W Dr. Tyler. Further orders as warranted Admission and Anticipated Discharge Date Admission Date: March 27, 2021 Subjective Patient seen on daily rounds today. Removed his NGT this morning as he "thought maybe he would go home today". Prior to, drainage had decreased from approximately 3 L in a 24-hour period to less than 1 L. Did have multiple se miformed BMs overnight and was passing flatus prior to removal. Denies abdominal pain or nausea. Urinary output has increased substantially. Total of 1700 cc since last evening. Fluid balance is +750 cc Lactulose given due to elevated ammonia and significant stool burden (was given rectally). Subsequently, patient has had multiple BMs. Ammonia level has decreased/normalized 18.4. His potassium level is normal at 4.4. His creatinine is downtrending to 4.2 (4.78 last evening). General surgery and nephrology on boardappreciate recommendations Review of Systems Review of Systems: All systems reviewed and are unremarkable except as noted in HPI and below Denies fevers, chills, headache, nasal congestion, sore throat, cough, chest pain, shortness of breath, abdominal pain, nausea, vomiting, dysuria, hematuria, frequency, skin lesions or rashes. Physical Exam Physical Exam: General: Resting comfortably in his hospital bed. Mentation much clearer today. He does not appear ill or toxic. Is not tachypneic as seen the day prior Neck: No JVD. Negative hepatojugular reflex Cardiac: frequent ectopy Lungs: CTA without W/R/R Abdomen: Distended but baseline per patient. Normoactive in the LUQ. Hypoactive in other quadrants. Soft and nontender in all quadrants. Extremities: + Adiposity without true edema Neuro: A&O X4 cranial nerves II through XII are grossly intact no focal neuro deficits Skin: No obvious skin lesions or rashes Results & Data Results & Data ([facility]) Vital Signs (Past 12 Hours) Vital Signs Temp Pulse Pulse Resp BP Pulse Ox 03/29/21 12:18 37.3 C 97 H 21 134/69 94 03/29/21 08:00 108 H 03/29/21 07:59 37.5 C 101 H 20 122/74 97 Laboratory Results BUN/Cr early this am: 64/4.29 Ammonia: 18.4 03/29/21 07:35 03/29/21 15:46 Urine culture: Urine Culture Preliminary 03/29/21-1055 Organism 1 Gram positive cocci [place] Count >100,000 CFU/ml Sens Sensitivities to Follow Diagnostic Findings KUB: IMPRESSION: 1. Significant interval worsening of the small bowel dilatation since prior study performed on March 28, 2021 at 9:40 hours. Interval removal of the gastric tube. Findings will be sent to the patient's unit. 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1 - Benign prostatic hyperplasia with lower urinary tract symptoms; R39.12 - Poor urinary stream
[2021-03-29] MEDS ORDERED: METOPROLOL TARTRATE 1 MG/ML VIAL IV PRN (19:56)
[2021-03-29] MEDS: INSULIN GLARGINE SOLOSTAR 100 UNITS/ML 3 ML PEN SC SCH (21:36)
[2021-03-30] MEDS: INSULIN HUMAN REGULAR SC SCH ×4 (01:32→17:55)
[2021-03-30] MEDS: UNIT DOSE COMPOUND PR SCH ×2 (05:24→17:07)
[2021-03-30] MEDS: LACTULOSE 200 GM, WATER, STERILE IRRIG 700 ML, BARCODE IDENTIFIER 1 EA PR SCH ×2 (05:24→17:07)
[2021-03-30] MEDS ORDERED: NORMOSOL-R 1,000 ML IV SCH (06:15)
[2021-03-30] MEDS: PIPERACILLIN/TAZOBACTAM 4.5 GM in DEXTROSE 5% 100 ML IV SCH ×2 (08:02→17:06)
[2021-03-30] MEDS: ENOXAPARIN INJ 30 MG/0.3 ML SYR SQ SCH (08:03)
[2021-03-30 08:50] LABS: Basophils # (auto) 0.01 K/uL (0-0.2); Basophils % (auto) 0.1 %; Eosinophils # (auto) 0.13 K/uL (0-0.5); Eosinophils % (auto) 1.7 %; Hematocrit (blood only) 37.7 % (42-52); Hemoglobin 11.1 g/dL (14.0-18.0); Immature Granulocytes # (auto) 0.01 K/uL (0.00-0.02); Immature Granulocytes % (auto) 0.1 %; Lymphocytes # (auto) 0.58 K/uL (1.2-3.4); Lymphocytes % (auto) 7.7 %; Mean Corpuscular Hemoglobin 25.4 pg (25-34); Mean Corpuscular Hgb Conc 29.4 g/dL (32-36); Mean Corpuscular Volume 86.3 fL (80-100); Mean Platelet Volume 9.4 fL (7.4-10.4); Monocytes # (auto) 1.02 K/uL (0.11-0.59); Monocytes % (auto) 13.5 %; Neutrophils # (auto) 5.82 K/uL (1.4-6.5); Neutrophils % (auto) 76.9 %; Platelet Count 155 K/uL (130-400); RDW Coefficient of Variation 18.3 % (11.5-14.5); Red Blood Count 4.37 M/uL (4.7-6.1); White Blood Count 7.57 K/uL (4.8-10.8)
[2021-03-30 09:10] LABS: Albumin Level 2.4 gm/dl (3.4-5.0); BUN Creatinine Ratio 16.9 (10-20); Calcium 8.8 mg/dl (8.5-10.1); Creatinine Clr Calc Pharmacy 35.7 ml/min; Est GFR (African American) 26.6 ml/min; Magnesium 2.4 mg/dl (1.8-2.4)
[2021-03-30 09:15] LABS: Albumin Globulin Ratio 0.6 (0.9-2); Bilirubin,Total 0.4 mg/dl (0.2-1); Globulin 3.9 gm/dl (2.5-4.0); Total Protein 6.3 gm/dl (6.4-8.2)
--- NOTE | 2021-03-30 10:22 | Nephrology Progress Note ---
Date of Service March 30, 2021 Assessment & Plan (1) Acute kidney injury superimposed on CKD: Plan: Non-oliguric. Creatinine continues to improve with positive fluid balance. Continue IV normosol to encourage positive ~1 L daily. Current infusion 100 ml/hr. Jarquin to gravity. UA/microscopy notable for >30 WBC/hpf and >30 RBC/hpf. Will monitor. No obstruction on CT. Repeat metabolic profile tomorrow AM. Strict I/O's. Medications appropriate for kidney dysfunction. Rosuvastatin held. Lisinopril, glimepiride, and metformin held. 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 (3) Hyperkalemia: Plan: K citrate and CAR held. Improved. (4) Diabetic nephropathy: Plan: Hold metformin, glimepiride, and lisinopril. Baseline creatinine 2.5-3.0 mg/dL. Admission and Anticipated Discharge Date Admission Date: March 27, 2021 Subjective No acute events overnight. Noted improvement. Adonis feels well this AM. No N/V. Denies abdominal pain. Breathing comfortably. Review of Systems Review of Systems: All systems reviewed & are unremarkable except as noted in HPI & below Constitutional: + fatigue and + weakness Physical Exam Constitutional: well developed and + morbidly obese; no acute distress Eyes: no scleral abnormality and no corneal abnormality ENMT: Mouth: + dry oral mucous membranes; no oral mucosal abnormality Neck: normal visual inspection and trachea midline Respiratory: normal respiratory effort Auscultation: lungs clear to auscultation bilaterally and + diminished lung sounds; no rales and no rhonchi Cardiovascular: Rate/Rhythm: regular rate Heart Sounds: normal S1 and normal S2 Extremities: normal capillary refill, + pedal edema and + varicosities Gastrointestinal (Abdomen): Inspection/Auscultation: + abdomen distended and + hypoactive bowel sounds Percussion/Palpation: + abdomen tender and + dullness to percussion; no guarding Musculoskeletal: Extremities: no cyanosis and no clubbing Skin: + turgor decreased; no lesions Neurologic: Motor/Sensory: no tremor and no asterixis Psychiatric: Orientation: alert and oriented x 3 Results & Data ([facility]) Vital Signs (Past 12 Hours) Vital Signs Temp Pulse Pulse Resp BP Pulse Ox 03/30/21 07:07 37.1 C 98 H 20 169/81 H 96 03/30/21 06:01 147/97 H 03/30/21 03:21 36.9 C 93 H 20 180/76 H 95 03/30/21 00:27 103 H 03/29/21 23:31 37.6 C H 99 H 18 159/89 H 96 Laboratory Results Laboratory Results - last 24 hr 03/29/21 03/29/21 03/29/21 12:05 15:46 17:49 WBC RBC Hgb Hct MCV MCH MCHC RDW Std Deviation RDW Coeff of Cirilo Plt Count MPV Immature Gran % (Auto) Neut % (Auto) Lymph % (Auto) [place] % (Auto) Eos % (Auto) Baso % (Auto) Neut # (Auto) Lymph # (Auto) [place] # (Auto) Eos # (Auto) Baso # (Auto) Immature Gran # (Auto) Sodium 143 Potassium 4.4 Chloride 113 H Carbon Dioxide 24 Anion Gap 6.0 BUN 57 H Creatinine 3.65 H D Est Cr Clr Drug Dosing 26.6 Est GFR ( Amer) 18.7 Est GFR (Non-Af Amer) 16.1 BUN/Creatinine Ratio 15.7 Glucose 144 H POC Glucose 143 H 132 H Calcium 8.4 L Magnesium Total Bilirubin AST ALT Alkaline Phosphatase Total Protein Albumin Globulin Albumin/Globulin Ratio 03/29/21 03/29/21 03/30/21 21:32 23:47 06:00 WBC RBC Hgb Hct MCV MCH MCHC RDW Std Deviation RDW Coeff of Cirilo Plt Count MPV Immature Gran % (Auto) Neut % (Auto) Lymph % (Auto) [place] % (Auto) Eos % (Auto) Baso % (Auto) Neut # (Auto) Lymph # (Auto) [place] # (Auto) Eos # (Auto) Baso # (Auto) Immature Gran # (Auto) Sodium Potassium Chloride Carbon Dioxide Anion Gap BUN Creatinine Est Cr Clr Drug Dosing Est GFR ( Amer) Est GFR (Non-Af Amer) BUN/Creatinine Ratio Glucose POC Glucose 127 H 129 H 132 H Calcium Magnesium Total Bilirubin AST ALT Alkaline Phosphatase Total Protein Albumin Globulin Albumin/Globulin Ratio 03/30/21 03/30/21 08:22 08:22 WBC 7.57 RBC 4.37 L Hgb 11.1 L Hct 37.7 L MCV 86.3 MCH 25.4 MCHC 29.4 L RDW Std Deviation 58.0 H RDW Coeff of Cirilo 18.3 H Plt Count 155 MPV 9.4 Immature Gran % (Auto) 0.1 Neut % (Auto) 76.9 Lymph % (Auto) 7.7 [place] % (Auto) 13.5 Eos % (Auto) 1.7 Baso % (Auto) 0.1 Neut # (Auto) 5.82 Lymph # (Auto) 0.58 L [place] # (Auto) 1.02 H Eos # (Auto) 0.13 Baso # (Auto) 0.01 Immature Gran # (Auto) 0.01 Sodium 145 Potassium 4.0 Chloride 113 H Carbon Dioxide 28 Anion Gap 4.0 BUN 46 H Creatinine 2.72 H D Est Cr Clr Drug Dosing 35.7 Est GFR ( Amer) 26.6 Est GFR (Non-Af Amer) 23.0 BUN/Creatinine Ratio 16.9 Glucose 140 H POC Glucose Calcium 8.8 Magnesium 2.4 Total Bilirubin 0.4 AST 14 L ALT 15 Alkaline Phosphatase 80 Total Protein 6.3 L Albumin 2.4 L Globulin 3.9 Albumin/Globulin Ratio 0.6 L PG Care Time/CCT Total # of Minutes Spent Total Time Spent with Patient: Total time spent is greater than 50% in coordination of care (as documented) at patient's floor/unit and/or counseling patient: Coding Level of Care Code 40015 Subseq Hosp Care Lvl 3 Diagnoses Acute kidney injury superimposed on CKD N17.9; N18.9 EDILMA (acute kidney injury) N17.9 Hyperkalemia E87.5 Diabetic nephropathy E11.21
--- NOTE | 2021-03-30 10:54 | Surgery Progress Note ---
Date of Service March 30, 2021 Assessment & Plan (1) SBO (small bowel obstruction): Plan: KUB yesterday (03/29/21) showed distended small bowel loop in LUQ measuring up to 9.9 cm however patient was asymptomatic with + bowel function Small bowel follow through ordered today Abdominal exam is benign Plan: No acute surgical intervention required at this time keep NPO for SBFT await results of SBFT today needs colonoscopy as outpatient Dr. Mariee has seen and examined pt, agrees with above. Admission and Anticipated Discharge Date Admission Date: March 27, 2021 Subjective feeling well this morning no abdominal pain, no nausea , no vomiting continues to pas a lot of gas and had bowel movement this morning denies feeling bloated Physical Exam Constitutional: WD/WN, vitals as above + morbidly obese; no acute distress and not ill appearing Respiratory: normal respiratory effort; no respiratory distress and no labored breathing Gastrointestinal (Abdomen): Inspection/Auscultation: abdomen normal to inspection and + hypoactive bowel sounds; abdomen not distended Percussion/Palpation: + hernia (reducible umbilical hernia) Skin: no rashes, warm and dry Psychiatric: Orientation: alert and oriented x 3 Results & Data ([facility]) Vital Signs (Past 12 Hours) Vital Signs Temp Pulse Pulse Resp BP Pulse Ox 03/30/21 07:07 37.1 C 98 H 20 169/81 H 96 03/30/21 06:01 147/97 H 03/30/21 03:21 36.9 C 93 H 20 180/76 H 95 03/30/21 00:27 103 H 03/29/21 23:31 37.6 C H 99 H 18 159/89 H 96 Laboratory Results 03/30/21 03/30/21 03/30/21 Range/Units 08:22 08:22 06:00 WBC 7.57 (4.8-10.8) K/uL RBC 4.37 L (4.7-6.1) M/uL Hgb 11.1 L (14.0-18.0) g/dL Hct 37.7 L (42-52) % MCV 86.3 (80-100) fL MCH 25.4 (25-34) pg MCHC 29.4 L (32-36) g/dL RDW Std Deviation 58.0 H (36.4-46.3) fL RDW Coeff of Cirilo 18.3 H (11.5-14.5) % Plt Count 155 (130-400) K/uL MPV 9.4 (7.4-10.4) fL Immature Gran % (Auto) 0.1 % Neut % (Auto) 76.9 % Lymph % (Auto) 7.7 % [place] % (Auto) 13.5 % Eos % (Auto) 1.7 % Baso % (Auto) 0.1 % Neut # (Auto) 5.82 (1.4-6.5) K/uL Lymph # (Auto) 0.58 L (1.2-3.4) K/uL [place] # (Auto) 1.02 H (0.11-0.59) K/uL Eos # (Auto) 0.13 (0-0.5) K/uL Baso # (Auto) 0.01 (0-0.2) K/uL Immature Gran # (Auto) 0.01 (0.00-0.02) K/uL Sodium 145 (136-145) mmol/L Potassium 4.0 (3.5-5.1) mmol/L Chloride 113 H (98-107) mmol/L Carbon Dioxide 28 (21-32) mmol/L Anion Gap 4.0 (3-11) BUN 46 H (7-18) mg/dl Creatinine 2.72 H D (0.6-1.4) mg/dl Est Cr Clr Drug Dosing 35.7 ml/min Est GFR ( Amer) 26.6 ml/min Est GFR (Non-Af Amer) 23.0 ml/min BUN/Creatinine Ratio 16.9 (10-20) Glucose 140 H (70-99) mg/dl POC Glucose 132 H (70-99) mg/dl Calcium 8.8 (8.5-10.1) mg/dl Magnesium 2.4 (1.8-2.4) mg/dl Total Bilirubin 0.4 (0.2-1) mg/dl AST 14 L (15-37) U/L ALT 15 (12-78) U/L Alkaline Phosphatase 80 (45-117) U/L Total Protein 6.3 L (6.4-8.2) gm/dl Albumin 2.4 L (3.4-5.0) gm/dl Globulin 3.9 (2.5-4.0) gm/dl Albumin/Globulin Ratio 0.6 L (0.9-2) 03/29/21 03/29/21 03/29/21 Range/Units 23:47 21:32 17:49 WBC (4.8-10.8) K/uL RBC (4.7-6.1) M/uL Hgb (14.0-18.0) g/dL Hct (42-52) % MCV (80-100) fL MCH (25-34) pg MCHC (32-36) g/dL RDW Std Deviation (36.4-46.3) fL RDW Coeff of Cirilo (11.5-14.5) % Plt Count (130-400) K/uL MPV (7.4-10.4) fL Immature Gran % (Auto) % Neut % (Auto) % Lymph % (Auto) % [place] % (Auto) % Eos % (Auto) % Baso % (Auto) % Neut # (Auto) (1.4-6.5) K/uL Lymph # (Auto) (1.2-3.4) K/uL [place] # (Auto) (0.11-0.59) K/uL Eos # (Auto) (0-0.5) K/uL Baso # (Auto) (0-0.2) K/uL Immature Gran # (Auto) (0.00-0.02) K/uL Sodium (136-145) mmol/L Potassium (3.5-5.1) mmol/L Chloride (98-107) mmol/L Carbon Dioxide (21-32) mmol/L Anion Gap (3-11) BUN (7-18) mg/dl Creatinine (0.6-1.4) mg/dl Est Cr Clr Drug Dosing ml/min Est GFR ( Amer) ml/min Est GFR (Non-Af Amer) ml/min BUN/Creatinine Ratio (10-20) Glucose (70-99) mg/dl POC Glucose 129 H 127 H 132 H (70-99) mg/dl Calcium (8.5-10.1) mg/dl Magnesium (1.8-2.4) mg/dl Total Bilirubin (0.2-1) mg/dl AST (15-37) U/L ALT (12-78) U/L Alkaline Phosphatase (45-117) U/L Total Protein (6.4-8.2) gm/dl Albumin (3.4-5.0) gm/dl Globulin (2.5-4.0) gm/dl Albumin/Globulin Ratio (0.9-2) 03/29/21 03/29/21 Range/Units 15:46 12:05 WBC (4.8-10.8) K/uL RBC (4.7-6.1) M/uL Hgb (14.0-18.0) g/dL Hct (42-52) % MCV (80-100) fL MCH (25-34) pg MCHC (32-36) g/dL RDW Std Deviation (36.4-46.3) fL RDW Coeff of Cirilo (11.5-14.5) % Plt Count (130-400) K/uL MPV (7.4-10.4) fL Immature Gran % (Auto) % Neut % (Auto) % Lymph % (Auto) % [place] % (Auto) % Eos % (Auto) % Baso % (Auto) % Neut # (Auto) (1.4-6.5) K/uL Lymph # (Auto) (1.2-3.4) K/uL [place] # (Auto) (0.11-0.59) K/uL Eos # (Auto) (0-0.5) K/uL Baso # (Auto) (0-0.2) K/uL Immature Gran # (Auto) (0.00-0.02) K/uL Sodium 143 (136-145) mmol/L Potassium 4.4 (3.5-5.1) mmol/L Chloride 113 H (98-107) mmol/L Carbon Dioxide 24 (21-32) mmol/L Anion Gap 6.0 (3-11) BUN 57 H (7-18) mg/dl Creatinine 3.65 H D (0.6-1.4) mg/dl Est Cr Clr Drug Dosing 26.6 ml/min Est GFR ( Amer) 18.7 ml/min Est GFR (Non-Af Amer) 16.1 ml/min BUN/Creatinine Ratio 15.7 (10-20) Glucose 144 H (70-99) mg/dl POC Glucose 143 H (70-99) mg/dl Calcium 8.4 L (8.5-10.1) mg/dl Magnesium (1.8-2.4) mg/dl Total Bilirubin (0.2-1) mg/dl AST (15-37) U/L ALT (12-78) U/L Alkaline Phosphatase (45-117) U/L Total Protein (6.4-8.2) gm/dl Albumin (3.4-5.0) gm/dl Globulin (2.5-4.0) gm/dl Albumin/Globulin Ratio (0.9-2)
--- NOTE | 2021-03-30 16:24 | Fluoroscopy Report ---
FL small bowel follow through CLINICAL HISTORY: sbo COMPARISON STUDY: None FLUOROSCOPY TIME: 0.18 and. NUMBER OF FLUOROSCOPIC IMAGES: 8 FINDINGS: No flight test shop mechanic radiograph of the abdomen without oral contrast was performed. Only spot fluoroscopic images of the abdomen were presented for review. Multiple contrast filling loops of small bowel are seen. Oral contrast is seen within proximal colon at the images 6-8 of the study. Mucosal details cannot be assess on this single lumen contrast study. IMPRESSION: Oral contrast is progressing to the large bowel at the end of the study. No evidence of high-grade sm all bowel obstruction. Partial small bowel obstruction cannot be completely excluded. ACT 112: Negative or not required by law. The above report was generated using voice recognition software. It may contain grammatical, syntax o r spelling errors. Electronically signed by: Eve Méndez DO 03/30/2021 4:22 PM
--- NOTE | 2021-03-30 17:11 | Hospitalist Progress Note ---
Date of Service March 30, 2021 Assessment & Plan (1) SBO (small bowel obstruction): Plan: 03/30/2021: * SBFT shows normal transit time. Patient's abdominal pain has resolved. He is having multiple BMs and is passing flatus. * Will initiate a clear liquid diet * Continue to follow and advance diet as tolerated * High-grade small bowel obstruction- ? Infectious etiology * Questionable transition point mid abdomen * NGT inadvertently removed by patient. Although follow-up KUB appears worse, he is showing favorable clinical response. May be a radiographic lag on anne ging. * General surgery on boardappreciate recommendations * Hold off on reinsertion of NGT for now. If patient develops worsening pain, nausea/vomiting or worsening abdominal distentionwe will reinsert NGT. For now, keep patient NPO. Obtain SBFT in a.m. * Zofran 4 mg IV every 6 hours as needed * Famotidine 20 mg IV every 12 hours. PPI being avoided given A/CKD * Continue Zosyn empirically as this may be infectious in its etiology but decreased dose for creatinine clearance of 25 * is sp lactulose (rectally) for stool burden * will need colonoscopy as OP (2) Acute kidney injury superimposed on CKD: Plan: * When initially seen by myself on e was aneuric with uremia, hyperkalemia and was tachypneic due to respiratory compensation for his metabolic acidosis. * Was seen by nephrology and his NSS was transitioned to Normosol * With adequate volume replacement, his renal function improved as he no longer was oliguric. His electrolyte disturbance resolved. Renal function returned to baseline. His mentation cleared with resolution of his uremia. * Appreciate recommendations from nephrology * Continue holding nephrotoxic meds * Antibiotic therapy being renally adjusted by pharmacy * Okay to remove Jarquin catheter * DC IV fluids to prevent volume overload but continue to hold oral Lasix (3) Hyperkalemia: Plan: * Hyperkalemia in the setting of acute/chronic kidney disease- * Has since normalized with improving renal function * Follow-up labs in a.m. to trend (4) Hypertension: Plan: * Medications remain on hold for now. Yesterday, was marginally hypotensive. Now hypertensive. * Resume metoprolol. 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 * Continue Lantus/log. Uptitrate with increased oral intake. Fasting blood glucose 185 this morning (6) Depression: Plan: * Resume bupropion given NPO status (7) Enlarged prostate with lower urinary tract symptoms (LUTS): Plan: * Resume Proscar * Remove Jarquin catheter (8) Dyslipidemia: Plan: * Hold rosuvastatin for now (9) Diabetic peripheral neuropathy: Plan: * Hold gabapentin (10) Diabetic gastroparesis: Plan: Likely an undiagnosed issue. Patient reports that it is not unusual for him to go 5 to 6 days without a bowel movement. Consideration for improved glucose control, and once this obstruction has been resolved, at some point in the future should consider medical treatment Plan: * lovenox for DVT prophylaxis * plan of care D/W Dr. Tyler. Further orders as warranted Admission and Anticipated Discharge Date Admission Date: March 27, 2021 Subjective Patient seen on daily rounds today. Vocalizes no complaints or concerns. Claims that he feels "100%". Denies abdominal pain, nausea, vomiting. Is havin g multiple BMs that are semiformed and is passing flatus. Had a small bowel follow-through this morning that shows normal transit time. In terms of his renal dysfunction, creatinine back to baseline. Potassium has remained normal. Anion gap closed. Serum bicarb 28. Urine output is >1700 cc Review of Systems Review of Systems: All systems reviewed and are unremarkable except as noted in HPI and below Denies fevers, chills, headache, nasal congestion, sore throat, cough, chest pain, shortness of breath, abdominal pain, nausea, vomiting, dysuria, hematuria, frequency, skin lesions or rashes. Physical Exam Physical Exam: General: Resting comfortably in his bedside chair. NAD. Neck: No JVD. Negative hepatojugular reflex Cardiac:regular with frequent ectopy Lungs: Speaking full sentences on supplemental oxygen. Diminished breath sounds throughout but no adventitious breath sounds. Abdomen: Nondistended. Normoactive X4. Soft and nontender throughout Extremities: No peripheral clubbing cyanosis or edema Neuro: A&O X4 cranial nerves II through XII are grossly intact no focal neuro deficits Skin: No obvious skin lesions or rashes Results & Data Results & Data ([facility]) Vital Signs (Past 12 Hours) Vital Signs Temp Pulse Pulse Resp BP Pulse Ox 03/30/21 16:17 104 H 03/30/21 15:37 37.2 C 103 H 20 160/83 H 95 03/30/21 12:44 37.2 C 100 H 22 126/77 96 03/30/21 12:25 37.2 C 104 H 18 128/87 93 03/30/21 08:00 95 H 03/30/21 07:07 37.1 C 98 H 20 169/81 H 96 03/30/21 06:01 147/97 H Laboratory Results 03/30/21 08:22 03/30/21 08:22 Diagnostic Findings SBFT: IMPRESSION: Oral contrast is progressing to the large bowel at the end of the study. No evidence of high-grade small bowel obstruction. Partial small bowel obstruction cannot be completely excluded. 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1 - Benign prostatic hyperplasia with lower urinary tract symptoms; R39.12 - Poor urinary stream
[2021-03-30] MEDS: METOPROLOL TARTRATE 100 MG TAB PO SCH (20:26)
[2021-03-30] MEDS: buPROPion SR 150 MG TABCR PO SCH (20:26)
[2021-03-30] MEDS: INSULIN GLARGINE SOLOSTAR 100 UNITS/ML 3 ML PEN SC SCH (20:27)
[2021-03-30] MEDS ORDERED: PHARMACY GLYCEMIC MGMT CONSULT PRN (22:00)
[2021-03-31] MEDS: PIPERACILLIN/TAZOBACTAM 4.5 GM in DEXTROSE 5% 100 ML IV SCH ×2 (00:19→10:10)
[2021-03-31] MEDS: INSULIN HUMAN REGULAR SC SCH (00:32)
[2021-03-31] MEDS ORDERED: INSULIN HUMAN REGULAR SC SCH (07:30)
[2021-03-31 08:23] LABS: Basophils # (auto) 0.02 K/uL (0-0.2); Basophils % (auto) 0.2 %; Eosinophils # (auto) 0.12 K/uL (0-0.5); Eosinophils % (auto) 1.4 %; Hematocrit (blood only) 39.9 % (42-52); Hemoglobin 11.6 g/dL (14.0-18.0); Immature Granulocytes # (auto) 0.03 K/uL (0.00-0.02); Immature Granulocytes % (auto) 0.4 %; Lymphocytes # (auto) 0.67 K/uL (1.2-3.4); Lymphocytes % (auto) 7.8 %; Mean Corpuscular Hemoglobin 25.7 pg (25-34); Mean Corpuscular Hgb Conc 29.1 g/dL (32-36); Mean Corpuscular Volume 88.5 fL (80-100); Mean Platelet Volume 9.7 fL (7.4-10.4); Monocytes # (auto) 0.81 K/uL (0.11-0.59); Monocytes % (auto) 9.5 %; Neutrophils # (auto) 6.91 K/uL (1.4-6.5); Neutrophils % (auto) 80.7 %; Platelet Count 174 K/uL (130-400); RDW Coefficient of Variation 18.5 % (11.5-14.5); RDW Standard Deviation 60.3 fL (36.4-46.3); Red Blood Count 4.51 M/uL (4.7-6.1); White Blood Count 8.56 K/uL (4.8-10.8)
[2021-03-31 08:58] LABS: BUN Creatinine Ratio 14.5 (10-20); Calcium 8.8 mg/dl (8.5-10.1); Creatinine Clr Calc Pharmacy 36.7 ml/min; Est GFR (African American) 30.5 ml/min; Est GFR (Non-African American) 26.3 ml/min; Potassium 4.4 mmol/L (3.5-5.1)
[2021-03-31] MEDS ORDERED: FINASTERIDE 5 MG TAB PO SCH (09:00)
[2021-03-31] MEDS ORDERED: METOPROLOL TARTRATE 100 MG TAB PO SCH (09:03)
[2021-03-31] MEDS ORDERED: FLUTICASONE/VILANTEROL 200/25MCG 14 PUFFS/INHALER INH SCH (09:03)
[2021-03-31] MEDS ORDERED: GABAPENTIN 300 MG CAP PO SCH (09:03)
[2021-03-31 09:04] LABS: Magnesium 2.2 mg/dl (1.8-2.4)
[2021-03-31] MEDS ORDERED: ALBUTEROL 0.083% NEBU SOLN 3 ML VIAL INH PRN (09:16)
[2021-03-31] MEDS: ENOXAPARIN INJ 30 MG/0.3 ML SYR SQ SCH (09:18)
[2021-03-31] MEDS: buPROPion SR 150 MG TABCR PO SCH (09:19)
--- NOTE | 2021-03-31 09:42 | Nephrology Progress Note ---
Date of Service March 31, 2021 Assessment & Plan (1) Acute kidney injury superimposed on CKD: Plan: Non-oliguric. Kidney function returning to baseline. IVF stopped. Jarquin may be removed. Medications appropriate for kidney dysfunction. Rosuvastatin held. At this p oint, I would consider limiting rosuvastatin to 10 mg daily or switching to a statin that does not require adjustment in kidney dysfunction (such as atorvastatin). Continue to hold Lisinopril and K citrate. Glimepiride and metformin may be restarted. (2) EDILMA (acute kidney injury): Plan: Resolving. Please schedule outpatient follow up in the nephrology clinic with me within 2 weeks of discharge. I discussed the plan of care with Dr. Tyler this AM. (3) Diabetic nephropathy: Plan: May restart metformin and glimepiride. I would favor continuing to hold lisinopril for now given Adonis's repeated episodes of EDILMA. Close outpatient follow up will be scheduled. Admission and Anticipated Discharge Date Admission Date: March 27, 2021 Subjective No acute events overnight. Adonis was in the bathroom passing a lot of loose stool this morning. He feels significantly better than he did prior to admission. Abdominal distention improved. Review of Systems Review of Systems: All systems reviewed & are unremarkable except as noted in HPI & below Physical Exam Constitutional: well developed and + morbidly obese; no acute distress Eyes: no scleral abnormality and no corneal abnormality ENMT: Mouth: no oral mucosal abnormality and oral mucous membranes not dry Neck: normal visual inspection and trachea midline Respiratory: normal respiratory effort Auscultation: lungs clear to auscultation bilaterally and + diminished lung sounds; no rales and no rhonchi Cardiovascular: Rate/Rhythm: regular rate Heart Sounds: normal S1 and normal S2 Extremities: normal capillary refill, + pedal edema and + varicosities Musculoskeletal: Extremities: no cyanosis and no clubbing Skin: + turgor decreased; no lesions Neurologic: Motor/Sensory: no tremor and no asterixis Psychiatric: Orientation: alert and oriented x 3 Results & Data ([facility]) Vital Signs (Past 12 Hours) Vital Signs Temp Pulse Pulse Resp BP Pulse Ox 03/31/21 07:17 37.0 C 79 18 120/67 96 03/31/21 03:15 37.1 C 72 20 156/83 H 95 03/30/21 23:13 37.0 C 82 20 133/92 98 03/30/21 22:35 86 Laboratory Results Laboratory Results - last 24 hr 03/30/21 03/30/21 03/30/21 12:22 17:12 20:13 WBC RBC Hgb Hct MCV MCH MCHC RDW Std Deviation RDW Coeff of Cirilo Plt Count MPV Immature Gran % (Auto) Neut % (Auto) Lymph % (Auto) [place] % (Auto) Eos % (Auto) Baso % (Auto) Neut # (Auto) Lymph # (Auto) [place] # (Auto) Eos # (Auto) Baso # (Auto) Immature Gran # (Auto) Sodium Potassium Chloride Carbon Dioxide Anion Gap BUN Creatinine Est Cr Clr Drug Dosing Est GFR ( Amer) Est GFR (Non-Af Amer) BUN/Creatinine Ratio Glucose POC Glucose 185 H 161 H 189 H Calcium Magnesium 03/31/21 03/31/21 03/31/21 00:16 07:02 07:02 WBC 8.56 RBC 4.51 L Hgb 11.6 L Hct 39.9 L MCV 88.5 MCH 25.7 MCHC 29.1 L RDW Std Deviation 60.3 H RDW Coeff of Cirilo 18.5 H Plt Count 174 MPV 9.7 Immature Gran % (Auto) 0.4 Neut % (Auto) 80.7 Lymph % (Auto) 7.8 [place] % (Auto) 9.5 Eos % (Auto) 1.4 Baso % (Auto) 0.2 Neut # (Auto) 6.91 H Lymph # (Auto) 0.67 L [place] # (Auto) 0.81 H Eos # (Auto) 0.12 Baso # (Auto) 0.02 Immature Gran # (Auto) 0.03 H Sodium 144 Potassium 4.4 Chloride 111 H Carbon Dioxide 31 Anion Gap 2.0 L BUN 35 H Creatinine 2.43 H Est Cr Clr Drug Dosing 36.7 Est GFR ( Amer) 30.5 Est GFR (Non-Af Amer) 26.3 BUN/Creatinine Ratio 14.5 Glucose 133 H POC Glucose 171 H Calcium 8.8 Magnesium 2.2 03/31/21 07:48 WBC RBC Hgb Hct MCV MCH MCHC RDW Std Deviation RDW Coeff of Cirilo Plt Count MPV Immature Gran % (Auto) Neut % (Auto) Lymph % (Auto) [place] % (Auto) Eos % (Auto) Baso % (Auto) Neut # (Auto) Lymph # (Auto) [place] # (Auto) Eos # (Auto) Baso # (Auto) Immature Gran # (Auto) Sodium Potassium Chloride Carbon Dioxide Anion Gap BUN Creatinine Est Cr Clr Drug Dosing Est GFR ( Amer) Est GFR (Non-Af Amer) BUN/Creatinine Ratio Glucose POC Glucose 145 H Calcium Magnesium PG Care Time/CCT Total # of Minutes Spent Total Time Spent with Patient: Total time spent is greater than 50% in coordination of care (as documented) at patient's floor/unit and/or counseling patient: Coding Level of Care Code 74314 Subseq Hosp Care Lvl 3 Diagnoses Acute kidney injury superimposed on CKD N17.9; N18.9 EDILMA (acute kidney injury) N17.9 Diabetic nephropathy E11.21
--- NOTE | 2021-03-31 10:56 | Pharmacy Report ---
Pharmacy Glycemic Sign Off Nt - Date of Service March 31, 2021 - Assessment & Plan ASSESSMENT: * Pharmacy was consulted by Dr. Moncada on 03/30/21 for glycemic control and to write orders per [facility] inpatient glycemic control protocol. * Spoke with primary team who will be managing patient for the remainder of this admission. * Please see recommendations for outpatient antidiabetic regimen below. PLAN FOR INPATIENT GLYCEMIC CONTROL: No changes needed to current regimen. * Continue basal insulin with Lantus 10 units SC HS * Continue NovoLog per scale ACHS/Q6hrs while NPO * Goal range = 120 - 180 mg/dl * CF = 20 mg/dl/unit * CR = 1 unit for ever 7 g CHO consumed * Pharmacy is signing off of glycemic consult and will no longer be making adjustments to inpatient regimen. Please feel free to re-consult if needed. Thank you. DISCHARGE RECOMMENDATIONS: * A1c 7.7% on 03/28/21 which is above the goal of less than 7% for this patient. * Patient follows with [facility] Endocrinology as an outpatient. Recommend follow-up appointment with their office after discharge.
[2021-03-31] MEDS ORDERED: CLOTRIMAZOLE 10 MG TROCHE BUCCAL SCH (11:00)
--- NOTE | 2021-03-31 11:25 | Surgery Progress Note ---
Date of Service March 31, 2021 Assessment & Plan (1) SBO (small bowel obstruction): Plan: Resolving SBFT showing no evidence of high grade SBO and contrast reaches the colon asymptomatic: No abdominal pain, nausae, vomiting + bowel function tolerating clears Plan: No acute surgical intervention required at this time may advance diet as tolerated would consider discontinuing IV abx as no signs of infection, wbc normal, afebrile will need outpatient Gi follow-up for colonoscopy and if symptoms persist as he has no history of abdominal surgeries for adhesions as cause of PSBO. Our services signing off, please call with questions or concerns. Discussed patient with Dr. Mariee who agrees with above. Admission and Anticipated Discharge Date Admission Date: March 27, 2021 Subjective patient feeling better today denies of any abdominal pain, nausea, vomiting, abdominal bloating tolerated clear liquids last evening and for breakfast had large liquid bowel movement this morning and made a mess Physical Exam Constitutional: WD/WN, vitals as above + morbidly obese and + lethargic; not in distress Respiratory: normal respiratory effort; no respiratory distress and no labored breathing oxygen via nasal canula Gastrointestinal (Abdomen): Inspection/Auscultation: abdomen normal to inspection and + hypoactive bowel sounds; abdomen not distended and + abnormal bowel sounds Percussion/Palpation: + hernia (reducible umbilical hernia) and + dullness to percussion; not tympanic to percussion Skin: no rashes, warm and dry Psychiatric: Orientation: alert and oriented x 3 Results & Data ([facility]) Vital Signs (Past 12 Hours) Vital Signs Temp Pulse Resp BP Pulse Ox 03/31/21 10:38 37.1 C 66 19 104/60 97 03/31/21 07:17 37.0 C 79 18 120/67 96 03/31/21 03:15 37.1 C 72 20 156/83 H 95 Laboratory Results 03/31/21 03/31/21 03/31/21 Range/Units 07:48 07:02 07:02 WBC 8.56 (4.8-10.8) K/uL RBC 4.51 L (4.7-6.1) M/uL Hgb 11.6 L (14.0-18.0) g/dL Hct 39.9 L (42-52) % MCV 88.5 (80-100) fL MCH 25.7 (25-34) pg MCHC 29.1 L (32-36) g/dL RDW Std Deviation 60.3 H (36.4-46.3) fL RDW Coeff of Cirilo 18.5 H (11.5-14.5) % Plt Count 174 (130-400) K/uL MPV 9.7 (7.4-10.4) fL Immature Gran % (Auto) 0.4 % Neut % (Auto) 80.7 % Lymph % (Auto) 7.8 % Pope % (Auto) 9.5 % Eos % (Auto) 1.4 % Baso % (Auto) 0.2 % Neut # (Auto) 6.91 H (1.4-6.5) K/uL Lymph # (Auto) 0.67 L (1.2-3.4) K/uL Pope # (Auto) 0.81 H (0.11-0.59) K/uL Eos # (Auto) 0.12 (0-0.5) K/uL Baso # (Auto) 0.02 (0-0.2) K/uL Immature Gran # (Auto) 0.03 H (0.00-0.02) K/uL Sodium 144 (136-145) mmol/L Potassium 4.4 (3.5-5.1) mmol/L Chloride 111 H (98-107) mmol/L Carbon Dioxide 31 (21-32) mmol/L Anion Gap 2.0 L (3-11) BUN 35 H (7-18) mg/dl Creatinine 2.43 H (0.6-1.4) mg/dl Est Cr Clr Drug Dosing 36.7 ml/min Est GFR ( Amer) 30.5 ml/min Est GFR (Non-Af Amer) 26.3 ml/min BUN/Creatinine Ratio 14.5 (10-20) Glucose 133 H (70-99) mg/dl POC Glucose 145 H (70-99) mg/dl Calcium 8.8 (8.5-10.1) mg/dl Magnesium 2.2 (1.8-2.4) mg/dl 03/31/21 03/30/21 03/30/21 Range/Units 00:16 20:13 17:12 WBC (4.8-10.8) K/uL RBC (4.7-6.1) M/uL Hgb (14.0-18.0) g/dL Hct (42-52) % MCV (80-100) fL MCH (25-34) pg MCHC (32-36) g/dL RDW Std Deviation (36.4-46.3) fL RDW Coeff of Cirilo (11.5-14.5) % Plt Count (130-400) K/uL MPV (7.4-10.4) fL Immature Gran % (Auto) % Neut % (Auto) % Lymph % (Auto) % Pope % (Auto) % Eos % (Auto) % Baso % (Auto) % Neut # (Auto) (1.4-6.5) K/uL Lymph # (Auto) (1.2-3.4) K/uL Pope # (Auto) (0.11-0.59) K/uL Eos # (Auto) (0-0.5) K/uL Baso # (Auto) (0-0.2) K/uL Immature Gran # (Auto) (0.00-0.02) K/uL Sodium (136-145) mmol/L Potassium (3.5-5.1) mmol/L Chloride (98-107) mmol/L Carbon Dioxide (21-32) mmol/L Anion Gap (3-11) BUN (7-18) mg/dl Creatinine (0.6-1.4) mg/dl Est Cr Clr Drug Dosing ml/min Est GFR ( Amer) ml/min Est GFR (Non-Af Amer) ml/min BUN/Creatinine Ratio (10-20) Glucose (70-99) mg/dl POC Glucose 171 H 189 H 161 H (70-99) mg/dl Calcium (8.5-10.1) mg/dl Magnesium (1.8-2.4) mg/dl 03/30/21 Range/Units 12:22 WBC (4.8-10.8) K/uL RBC (4.7-6.1) M/uL Hgb (14.0-18.0) g/dL Hct (42-52) % MCV (80-100) fL MCH (25-34) pg MCHC (32-36) g/dL RDW Std Deviation (36.4-46.3) fL RDW Coeff of Cirilo (11.5-14.5) % Plt Count (130-400) K/uL MPV (7.4-10.4) fL Immature Gran % (Auto) % Neut % (Auto) % Lymph % (Auto) % Pope % (Auto) % Eos % (Auto) % Baso % (Auto) % Neut # (Auto) (1.4-6.5) K/uL Lymph # (Auto) (1.2-3.4) K/uL Pope # (Auto) (0.11-0.59) K/uL Eos # (Auto) (0-0.5) K/uL Baso # (Auto) (0-0.2) K/uL Immature Gran # (Auto) (0.00-0.02) K/uL Sodium (136-145) mmol/L Potassium (3.5-5.1) mmol/L Chloride (98-107) mmol/L Carbon Dioxide (21-32) mmol/L Anion Gap (3-11) BUN (7-18) mg/dl Creatinine (0.6-1.4) mg/dl Est Cr Clr Drug Dosing ml/min Est GFR ( Amer) ml/min Est GFR (Non-Af Amer) ml/min BUN/Creatinine Ratio (10-20) Glucose (70-99) mg/dl POC Glucose 185 H (70-99) mg/dl Calcium (8.5-10.1) mg/dl Magnesium (1.8-2.4) mg/dl Diagnostic Findings FL small bowel follow through CLINICAL HISTORY: sbo COMPARISON STUDY: None FLUOROSCOPY TIME: 0.18 and. NUMBER OF FLUOROSCOPIC IMAGES: 8 FINDINGS: No sales incentive analyst radiograph of the abdomen without oral contrast was performed. Only spot fluoroscopic images of the abdomen were presented for review. Multiple contrast filling loops of small bowel are seen. Oral contrast is seen within proximal colon at the images 6-8 of the study. Mucosal details cannot be assess on this single lumen contrast study. IMPRESSION: Oral contrast is progressing to the large bowel at the end of the study. No evidence of high-grade small bowel obstruction. Partial small bowel obstruction cannot be completely excluded.
[2021-03-31] MEDS ORDERED: INSULIN ASPART 100 UNITS/ML 3 ML PEN SC SCH (11:30)
[2021-03-31] MEDS: METOPROLOL TARTRATE 100 MG TAB PO SCH (12:03)
--- NOTE | 2021-03-31 14:28 | Discharge Summary ---
Date of Service March 31, 2021 Admission HPI Per Admitting Provider The patient is a 70-year-old male with a past medical history including small bowel obstruction, diabetic nephropathy, uncontrolled diabetes mellitus, diabetic peripheral neuropathy, memory impairment, CKD, depression, obesity, BPH with LUTS, dyslipidemia, ureteral stone, pericardial effusion, history of ureteral stent, SREEKANTH, GERD, COPD and CAD. He presents with symptoms as noted above. Work-up in the emergency department included a CT scan of abdomen pelvis which showed a high-grade small bowel obstruction. Abnormal laboratories include: Potassium 5.3, glucose 219, creatinine 3.24 and WBC 17.02. Admission Exam Per Admitting Provider The patient is awake, alert and oriented 3, well developed and well nourished, normocephalic and atraumatic, lying in bed and in no acute distress. HEENT--PERRL, EOMI, mucous membranes and oropharynx dry. Neck--supple. No JVD. No bruits. Thyroid normal, trachea midline, no adenopathy. Heart--normal S1 and S2. No murmurs, rubs or gallops. Lungs--clear bilaterally, no respiratory distress, no accessory muscle use. Abdomen--decreased bowel sounds. Mildly firm and distended Extremities--right lower extremity trace pretibial pitting edema and 2+ pitting pedal edema. Left lower extremity 2+ pretibial and pedal pitting edema Dermatologic--normal skin turgor, normal color, no abnormal lymph nodes, no rash. Neurologic--cranial nerves II through XII grossly intact. Rheumatologic--range of motion limited by body habitus Psychiatric--normal affect. Principal Diagnosis Working diagnoses: 1. High-grade small bowel obstruction 2. Acute on chronic renal failure 3. Hyperkalemiasecondary to #2 3. Anuria/oliguriasecondary to #2 3. Uremiasecondary to #2 4. Leukocytosis? Reactive to #2 versus infectious etiology of #1 Chronic medical conditions: 1. Diabetes mellitus 2. Diabetic neuropathy 3. CKD 4. Depression 5. Obesity 6. BPH 7. HLD 8. Nephrolithiasis 9. COPD 10. GERD 11. CAD 12. SREEKANTH Discharge Exam General: Resting comfortably in his bedside chair. NAD. Neck: No JVD. Negative hepatojugular reflex Cardiac:regular with frequent ectopy Lungs: Speaking full sentences on supplemental oxygen. Diminished breath sounds throughout but no adventitious breath sounds. Abdomen: Nondistended. Normoactive X4. Soft and nontender throughout Extremities: No peripheral clubbing cyanosis or edema Neuro: A&O X4 cranial nerves II through XII are grossly intact no focal neuro d eficits Skin: No obvious skin lesions or rashes Discharge Data Allergies Allergy/AdvReac Type Severity Reaction Status Date / Time azithromycin Allergy Mild diarrhea Verified 03/27/21 19:08 Consultations 03/27/21 20:13 ED Decision to Admit Stat 03/28/21 11:16 Consult General Surgery Routine Surgery was on board and continue to follow patient daily. He responded favorably. Patient to have a colonoscopy as an outpatient. 03/29/21 08:31 Consult Nephrology Routine Patient seen by established prisoner classification interviewer while in house. Initial consult: (1) Acute kidney injury superimposed on CKD: Plan: UOP improving with positive fluid balance. Continue IV normosol to encourage positive ~1 L daily. Current infusion 100 ml/hr. Jarquin to gravity. UA/microscopy notable for >30 WBC/hpf and >30 RBC/hpf. Will monitor. No obstruction on CT. Metabolic profile to be monitored twice daily. Strict I/O's. Medications appropriate for kidney dysfunction. I would consider a dose reduction of Zosyn based on kidney dysfunction, deferred to pharmacy. Rosuvastatin home dose is excessive for kidney function and the medication has been held. CK thankfully not elevated. Lisinopril, glimepiride, and metformin held. (2) EDILMA (acute kidney injury): Plan: No emergent indication for MANAGER DEVELOPMENTAL. Potential future indications discussed with Adonis and his . Goals of care reviewed. Adonis is agreeable to dialysis if needed. (3) Hyperkalemia: Plan: K citrate and CAR held. Switch NSS to normosol. IVF to enourage UOP. (4) Diabetic nephropathy: Plan: Hold metformin, glimepiride, and lisinopril. Baseline creatinine 2.5-3.0 mg/dL. (5) Nephrolithiasis: Plan: CT reviewed. Hold K citrate. 1) Acute kidney injury superimposed on CKD: Plan: Non-oliguric. Kidney function returning to baseline. IVF stopped. Jarquin may be removed. Medications appropriate for kidney dysfunction. Rosuvastatin held. At this point, I would consider limiting rosuvastatin to 10 mg daily or switching to a statin that does not require adjustment in kidney dysfunction (such as atorvastatin). Continue to hold Lisinopril and K citrate. Glimepiride and metformin may be restarted. (2) EDILMA (acute kidney injury): Plan: Resolving. Please schedule outpatient follow up in the nephrology clinic with me within 2 weeks of discharge. I discussed the plan of care with Dr. Tyler this AM. (3) Diabetic nephropathy: Plan: May restart metformin and glimepiride. I would favor continuing to hold lisinopril for now given Adonis's repeated episodes of EDILMA. Close outpatient follow up will be scheduled. Ordered Studies 03/27/21 18:35 CT abd pelvis wo con Stat IMPRESSION: 1. Findings are consistent with a high-grade small bowel obstruction. Question a transition point in the midabdomen, and the distal small bowel loops are relatively decompressed. 2. No intraperitoneal free air is identified. No focally thick walled bowel loops are identified and there is no pneumatosis intestinalis or portal venous g as. 3. Bilateral nephrolithiasis. 4. Cholelithiasis. 5. Moderate fecal retention is seen throughout the colon. 6. Additional findings as above. CXR/KUB after insertion of NGT: IMPRESSION: 1. No acute process of the chest. 2. Persistent dilated loops of small bowel with air also present within the colon. 3. Distal tip of enteric tube projects over the gastroesophageal junction. Advancement recommended. KUB after patient removed NGT: IMPRESSION: 1. Significant interval worsening of the small bowel dilatation since prior study performed on March 28, 2021 at 9:40 hours. Interval removal of the gastric tube. Findings will be sent to the patient's unit. 03/30/21 07:00 FL small bowel follow through Routine FINDINGS: No jacquard loom fixer radiograph of the abdomen without oral contrast was performed. Only spot fluoroscopic images of the abdomen were presented for review. Multiple contrast filling loops of small bowel are seen. Oral contrast is seen within proximal colon at the images 6-8 of the study. Mucosal details cannot be assess on this single lumen contrast study. IMPRESSION: Oral contrast is progressing to the large bowel at the end of the study. No evidence of high-grade small bowel obstruction. Partial small bowel obstruction cannot be completely excluded. Hospital Course (1) SBO (small bowel obstruction): High-grade small bowel obstruction- ? Infectious etiology * Questionable transition point mid abdomen * NGT placed initially (at LIS x ~24 hours) but then inadvertently removed by patient. Although follow-up KUB appears worse, he was showing favorable clinical response. May be a radiographic lag on imaging. * Did have significant stool burden on CT scan. With that in addition to a slightly elevated ammonia level, he was given multiple doses of rectal lactulose (oral avoided given his bowel obstruction). * General surgery on board surgery warrented given clinical improvement. Will need colonoscopy as an OP * Given improvement- NGT was not reinserted. * SBFT done showing contrast reaching the colon * He was started on clear liquids which were advanced as tolerated. Seen on daily rounds on the morning of 03/31 and tolerating oral intake. Still passing flatus and having BMs. Now multiple loose BMs (C. difficile done and negative. Likely antibiotic associated diarrhea) Medications given while in house: * Zofran 4 mg IV every 6 hours as needed * Famotidine 20 mg IV every 12 hours. PPI being avoided given A/CKD * Zosyn empirically as this may be infectious in its etiology but decreased dose for creatinine clearance of 25 subsequently, patient had diarrhea (likely antibiotic associated as C. difficile toxin negative). Will discharge with Cipro/Flagyl as it is easier on the gut * is sp lactulose (rectally) for stool burden At this point, medically and hemodynamically stable for discharge to home * will need colonoscopy as OP (2) Acute kidney injury superimposed on CKD: * When initially seen by myself on 1he was aneuric with uremia, hyperkalemia and was tachypneic due to respiratory compensation for his metabolic acidosis. * Creatinine, electrolytes, worsening compared to initial presentation. Patient became aneuric despite IV hydration with NSS. * On nephrotoxic agents were on hold * Was seen by nephrology and his NSS was transitioned to Normosol * With adequate volume replacement, his renal function improved * UA with culture showed no evidence of infection * CT of the abdomen and pelvis showed no evidence of obstructive uropathy * He became nonoliguric. * electrolyte disturbance resolved. * Renal function returned to baseline. * mentation cleared with resolution of his uremia. * Appreciate recommendations from nephrology * Continue holding nephrotoxic meds (stop lisinopril/Metformin and Crestor changed to Lipitor). BP has actually been moderately low with the discontinuation of his lisinopril * Initially had Jarquin catheter to accurately monitor I's and O's. This was subsequently removed and patient was voiding without difficulty * Lasix has been on hold as patient volume depleted with acute on chronic kidney disease. Reports he takes this "as needed for swelling". Patient to have an echocardiogram prior to discharge today. Continue to hold Lasix. Follow-up with PCP regarding need for resumption. No reported history of CHF. Echocardiogram may help determine if routine diuretic therapy is needed. (3) Hyperkalemia: * Hyperkalemia in the setting of acute/chronic kidney disease- * Has since normalized with improving renal function * Stop supplemental potassium (4) Hypertension: * Continue metoprolol. * Stop lisinopril given renal dysfunction. Current BP with just metoprolol is 104/60. No need for added antihypertensive at this time. 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 Patient reports that it is not unusual for him to go 5 to 6 days without a bowel movement. Consideration for improved glucose control, and once this obstruction has been resolved, at some point in the future should consider medical treatment * Need GI/general surgery follow-up for colonoscopy * Follow-up with PCP in 7 to 10 days * Recommend follow-up labs to trend renal functionat discretion of nephrology/PCP * Follow-up with nephro: 2 weeks Total Time Total Time Spent Total Time Spent (In Minutes): 60 min Discharge Plan Discharge Items Patient Disposition: Home - Self-Care Reason For Visit: SBO Discharge Diagnosis: 1. High Grade bowel obstruction 2. Acute on Chronic Renal failure 3. Oligouria- resolved 4. Uremia- resolved 5. hyperkalemia- resolved Activity: Resume your previous activity Non-emergency contact: Primary Care Provider and Irrigation Equipment Remover Call non-emergency contact if: your symptoms worsen Follow-up/Referrals: [facility],Rehan C., DO [Physician] - 04/01/21 1:20 pm Salas Valente DO [Primary Care Provider] - 04/05/21 11:30 am Roque Salazar MD [Physician] - Diet: Low Fiber Addtl Attending Provider Instructions: - Complete full course of antibiotic (uncertain if your bowel obstruction is related to an infectious process). -- Cipro 500mg twice a day with next dose due tonight -- Flagyl 500mg 3x/day with next dose due tonight (do not drink alcohol while on this medication. May cause a metallic taste in your mouth) - note that some of your medications have been stopped on account of your kidney function -- STOP lisinopril -- STOP metformin -- STOP lasix (that you are currently taking as needed) --stop potassium chloride -- hold lactulose for now -- note that your crestor has been changed to lipitor given your kidney disease - discuss with family doctor if lasix needs to be resumed. currently hold this medication until specified by PCP - you had an echocardiogram done while in house to assess your heart function. This can be D/W your family doctor and may be helpful in determining need for lasix. - follow up with PCP: 7-10 days - follow up with surgery as you will need a colonoscopy - return to the ED for new or worsening symptoms Pending Studies at Discharge: No Stand-Alone Forms: My [facility] Medications and DC Order Prescriptions: New ciprofloxacin HCl [Cipro] 500 mg tablet 500 mg PO BID Qty: 7 RF: 0 metronidazole [Flagyl] 500 mg tablet 500 mg PO Q8H 7 Days Qty: 11 RF: 0 atorvastatin [Lipitor] 40 mg tablet 40 mg PO HS Qty: 30 RF: 0 Continued glimepiride 2 mg tablet 3 mg PO BID Qty: 270 RF: 3 finasteride [Proscar] 5 mg tablet 5 mg PO QAM Qty: 90 RF: 3 gabapentin 300 mg capsule 300 mg PO BID Qty: 180 RF: 3 metoprolol tartrate [Lopressor] 100 mg tablet 100 mg PO BID Qty: 180 RF: 3 trospium 60 mg capsule,extended release 24hr 60 mg PO QAM Qty: 90 RF: 3 insulin aspart U-100 [Novolog Flexpen U-100 Insulin] 100 unit/mL (3 mL) insulin pen See Rx Instructions subcut DAILY Qty: 15 RF: 5 Tresiba FlexTouch U-200 200 unit/mL (3 mL) insulin pen 35 unit subcut DAILY Qty: 18 RF: 11 clopidogrel 75 mg tablet 75 mg PO QAM Qty: 90 RF: 3 Trulicity 1.5 mg/0.5 mL pen injector 1.5 mg SQ WK Qty: 6 RF: 3 bupropion HCl 150 mg tablet sustained-release 12 hr 150 mg PO BID 90 Days Qty: 180 RF: 3 pantoprazole [Protonix] 40 mg tablet,delayed release (DR/EC) 40 mg PO DAILY PRN (Reason: GERD) Qty: 90 RF: 3 Breo Ellipta 200-25 mcg/dose blister with device 1 inh inhalation DAILY Qty: 60 RF: 5 sildenafil 50 mg tablet 50 mg PO DAILY PRN (Reason: sexual activity) Qty: 7 RF: 3 cholecalciferol (vitamin D3) [Vitamin D3] 1,000 unit Tablet 1,000 unit PO BID RF: 0 Lumigan 0.01 % drops 1 drp OPB HS RF: 0 acetaminophen 325 mg tablet 650 mg PO TID PRN (Reason: Pain) RF: 0 aspirin 81 mg Tablet,Delayed Release (Dr/Ec) 81 mg PO QPM RF: 0 ipratropium-albuterol 0.5 mg-3 mg(2.5 mg base)/3 mL solution for nebulization 3 ml inhalation Q4 PRN (Reason: wheezing) RF: 0 albuterol sulfate 0.63 mg/3 mL solution for nebulization 0.63 mg continuous nebulization QID PRN (Reason: Shortness Of Breath Or Wheezing) RF: 0 Discontinued potassium citrate 15 mEq tablet extended release See Rx Instructions .ROUTE .COMPLEX Qty: 60 RF: 11 metformin 500 mg tablet 500 mg PO BID Qty: 180 RF: 3 rosuvastatin [Crestor] 40 mg tablet 40 mg PO DAILY Qty: 90 RF: 3 lisinopril 10 mg tablet 10 mg PO DAILY Qty: 90 RF: 3 lactulose 10 gram/15 mL solution 10 g PO DAILY PRN (Reason: constipation) Qty: 237 RF: 0 furosemide 20 mg tablet 20 mg PO DAILY PRN (Reason: Edema) RF: 0 No Action (DME) lancets [OneTouch Delica Lancets] 33 gauge misc See Dose Instructions .ROUTE .MEDSUPPLY Qty: 100 RF: 3 (DME) Hospital Bed Misc See Rx Instructions .ROUTE .MEDSUPPLY Qty: 1 RF: 0 (DME) pen needle, diabetic [BD Ultra-Fine Mini Pen Needle] 31 gauge x 3/16" needle See Rx Instructions .ROUTE .MEDSUPPLY Qty: 400 RF: 3 (DME) True Metrix Glucose Test Strip Strip See Rx Instructions .ROUTE .MEDSUPPLY Qty: 100 RF: 5 (DME) blood-glucose meter [True Metrix Glucose Meter] Misc See Rx Instructions .ROUTE .MEDSUPPLY Qty: 1 RF: 0 (DME) FreeStyle Nidia 2 Sensor Kit See Rx Instructions .ROUTE .MEDSUPPLY Qty: 1 RF: 0 (DME) FreeStyle Nidia 2 [employer] Misc See Rx Instructions .ROUTE .MEDSUPPLY Qty: 1 RF: 0 Discharge Orders: Discharge Order (Routine); Ordered 03/31/21 Ordered By: Paula Dee/Other Patient Handouts: Understanding Intestinal Obstruction Admission Data Admit Date/Time: 03/27/21 21:30 Attending Provider: Agustín Tyler Admit Provider: Yossi Izaguirre Primary Care Provider: Salas Valente Other Providers: Yossi Izaguirre ; Roque Salazar ; Rehan Man. Other Interventions: Discharge Summary Assessment (RN) Last Done: 03/31/21 14:16 Supervising Physician Co-Signing Physician Notes Patient seen and examined on the day of discharge. I agree with the discharge summary by Paula LEAL. I have reviewed the chart including labs, imaging and plans for discharge. 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
[2021-03-31] MEDS ORDERED: TROSPIUM ~ ORDER AWAITING ACTION SCH (16:00)
[2021-03-31 16:47] LABS: Cdiff Antigen Positive; Cdiff Toxin A+B Negative Cdiff Toxin (Negative)
--- NOTE | 2021-03-31 20:50 | XCELERA ---
[id number]
[2021-03-31] MEDS ORDERED: ASPIRIN 81 MG ECTAB PO SCH (21:00)
[2021-03-31] MEDS ORDERED: BIMATOPROST 0.01% OP SOLN 2.5 ML BTL OP SCH (21:00)
== END 2021-03-31 15:57 | disposition home or self-care (01) | DRG 389 ==
LOC: ED 18:26 → SUATTDRO 21:30 → 3W 21:30 → 2S 03-28 11:25

== ENCOUNTER 2021-06-27 18:27 | Inpatient (IN) ==
[2021-06-27] MEDS ORDERED: ALBUT/IPRATROP 3MG/0.5MG NEB 3 ML VIAL NEB STA (19:21)
--- NOTE | 2021-06-27 19:42 | Emergency Department Note ---
Impression & Plan Weakness, COVID-19, Breathlessness, COPD (chronic obstructive pulmonary disease) ED Provider Note Provider: Nabeel Mason MD DATE OF SERVICE: 06/27/2021 CHIEF COMPLAINT: Weakness, fevers, shortness of breath HISTORY OF PRESENT ILLNESS: Patient is a 70-year-old gentleman history of type 2 diabetes, COPD, diabetic neuropathy, CKD, and presenting here today reporting small bowel obstruction in the past presenting here today reporting the onset of shortness of breath with some fatigue and fever since Monday approximately 4 to 5 days ago. No other sick contacts reported. The patient states he is vaccinated for Covid. Has been using his supplemental home oxygen more than normal. Has been a bit weak and suffered a minor fall today but denies significant injury from this or striking his head. Patient denies significant abdominal pain, nausea, vomiting, or chest pain. Reports some shortness of breath. Patient states she has some baseline swelling of the lower legs but this is unchanged. Patient reports consistent burning sensation in the feetbut no other new significant numbness or weakness. No dizziness reported. Patient is having some difficulty walking. REVIEW OF SYSTEMS: A total of 10 review of systems was obtained and negative except as stated above in the HPI. PAST MEDICAL HISTORY: As noted above MEDICATIONS: Reviewed home medications and on intermittent home oxygen SOCIAL HISTORY: Former smoker, lives at home PHYSICAL EXAM: GENERAL: alert and oriented in no acute distress on stretcher however fatigued appearing Head: normocephalic and atraumatic EYES: No injection, discharge or icterus. NECK: Trachea midline. ENT: Mucous membranes pink and moist. Pharynx without erythema or exudate. LUNGS: Airway patent. No retractions and minimally tachypneic. Breath sounds clear with mildly diminished bases HEART: Regular rate and rhythm. No chest wall tenderness ABDOMEN: Soft and non-tender, without guarding or rebound. SKIN: Acyanotic, warm, dry, without rashes EXTREMITIES: Patient with 2+ lower extremity swelling with slight chronic stasis changes. NEUROLOGICAL: No focal deficits moving all extremities with some mild paresthesia in the bilateral feet. No aphasia. No facial droop or slurred speech. EK bpm normal sinus rhythm without PVC or PAC. No acute ST segment elevation or depression with a QTC of 429. CONTINUOUS CARDIAC MONITORING: was ordered and showed a heart rate of 60s to 80s bpm in normal sinus rhythm 1 view chest x-ray: Slight pleural effusion left base with no evidence of pneumothorax or classic pneumonia but some mild diffuse lower airway opacities likely viral in nature Patient's laboratory studies and imaging reviewed. Differential includes Infection, dehydration, metabolic abnormality, hypo/hyperglycemia, electrolyte disturbance, anemia, hypoxia, cardiac sources, intracerebral event, toxicologic, neurologic, as well as other pathologies. IMPRESSION/MEDICAL DECISION MAKING: Patient presents here with approximate 4 days of some increasing shortness of breath with some fever and fatigue. 89% on room air but has supplemental oxygen at home he intermittently uses and does have a history of COPD. No significant trauma reported evidence of trauma or new focal neurological deficits at this time that make me believe that we need imaging of the head. Has had significant generalized weakness and minimal fall yesterday. Basic blood work and a VBG was sent as well as a Covid test although he is vaccinated. Chest x-ray is ordered and per my review no significant change and doubt significant fluid overload or pneumonia; question some mild viral diffuse opacities in the lower lobes. Given a DuoNeb but he is not that wheezy on exam. Some mild leg swelling is noted but patient and family state this is not worsened. Blood work here without significant hypercarbia. No leukocytosis. Renal function actually slightly better. No evidence of hepatitis and no troponin elevation. Doubt this is cardiac. Patient is vaccinated but Covid test returns positive likely causing his underlying fatigue, fatigue years, and weakness. Lower suspicion for PE. Attempted to ambulate the patient here in the room but he is too unsteady to even walk more than a step or 2 from the bed. Do not feel he is safe to go home at this time due to his weakness which again is likely related to Covid. Discussed with him and family at bedside. Patient intermittently uses couple liters of oxygen at home and has been doing okay with that not sure that he is truly experiencing that significant worsening oxygen demand. Will defer steroids to the inpatient team. The hospitalist was contacted for further care here DIAGNOSIS: COVID-19, weakness, fevers, shortness of breath DISPOSITION: Hospitalist will evaluate Patient was agreeable with this plan. Past Med/Surg History Medical History EDILMA (acute kidney injury) BPH (benign prostatic hyperplasia) CAD (coronary artery disease) Acute PA 03/2011, complicated by 3 episodes of v fib requiring electrical shock- ZITA x2 Chronic kidney disease With recent EDILMA on CKD. COPD (chronic obstructive pulmonary disease) Severe, per pulm- 2L N/C prn Dyslipidemia GERD (gastroesophageal reflux disease) History of PA (myocardial infarction) Acute PA 03/2011, complicated by 3 episodes of v fib requiring electrical shock- ZITA x2 Hyperkalemia Hypertension Hypophosphatemia Morbid obesity with BMI of 40.0-44.9, adult Nephrolithiasis Admitted to [facility] for 7 mm L ureteral stone causing hydronephrosis/EDILMA Obstructive sleep apnea of adult Patient refuses CPAP. On anticoagulant therapy plavix daily On home oxygen therapy 2L N/C prn Peripheral neuropathy SBO (small bowel obstruction) current diagnosis--reason for scheduled colonoscopy Uncontrolled type 2 diabetes mellitus with diabetic neuropathy, with long-term current use of insulin UTI (urinary tract infection) Surgical History History of bilateral cataract extraction History of cardiac cath 2010- stents x2 History of carpal tunnel release right History of colonoscopy Colonoscopy: 03/18/19: MAC sedation at [facility] History of lithotripsy Left ESWL: 09/14/18: LMA#5 at [facility] (weight at time: 135.1kg) History of lithotripsy Left ESWL 06/07/19 [facility] History of tooth extraction Hx of transurethral resection of prostate S/P cystoscopy with ureteral stent placement mulitple---last 04/16/20, 03/05/2020 08/23/2018. MAC. No issues. Family History Mother Family history of diabetes mellitus Coronary heart disease PA Father Coronary heart disease PA Myocardial infarction Other No family history of adverse response to anesthesia Denies family history of Ovarian cancer Prostate cancer Breast cancer Colorectal cancer Social History Smoking Status: Never smoker Tobacco Type: Cigarettes Number of Years Since Quit: 7; Second Hand Exposure: Yes (family smoked); Hx Alcohol Use: No Hx Substance Use: No Preferred Language: Qatari Communication Ability: Effective Visual Impairment: No Limitations Hearing Ability: Normal Team Leader Required: No Beliefs That Will Affect Care: None marital status: Current Living Situation: Spouse current occupational status: retired How many Children do You have: 3 Feels Safe at Home: Yes Childhood Exposure to Second-Hand Smoke: Yes caffeine: Yes (Tea and soda ) Dental Care, Regularly: Yes Physical Activity Frequency: Does not Exercise Seatbelt Use: sometimes Sunscreen Use: No Assistive Devices: Denture - Upper, Walker and Wheelchair Allergies Allergies Allergy/AdvReac Type Severity Reaction Status Date / Time azithromycin Allergy Mild diarrhea Verified 06/27/21 23:03 Home Meds Home Medications Medication Instructions Recorded Confirmed cholecalciferol (vitamin D3) 25 1,000 unit PO BID 08/22/18 06/27/21 mcg (1,000 unit) tablet (Vitamin D3) acetaminophen 325 mg tablet 650 mg PO TID PRN 04/27/20 06/27/21 aspirin 81 mg tablet,delayed 81 mg PO QPM 06/08/20 06/27/21 release flash glucose scanning reader #1 ea 12/16/20 06/27/21 ([employer] Nidia 2 [place]) flash glucose sensor (FreeStyle #1 ea 12/16/20 06/27/21 Nidia 2 Sensor) albuterol sulfate 0.63 mg/3 mL 0.63 mg CONTINUOUS NEBULIZATION 03/27/21 06/27/21 solution for nebulization QID PRN ipratropium 0.5 mg-albuterol 3 mg 3 ml INHALATION Q4 PRN 03/27/21 06/27/21 (2.5 mg base)/3 mL nebulization soln fluticasone furoate 200 1 inh INHALATION DAILY PRN 04/26/21 06/27/21 mcg-vilanterol 25 mcg/dose inhalation powder (Breo Ellipta) furosemide 20 mg tablet 20 mg PO DAILY PRN 04/26/21 06/27/21 insulin degludec 200 unit/mL (3 45 unit SUBCUT HS 04/26/21 06/27/21 mL) subcutaneous pen (Tresiba FlexTouch U-200 insulin) Previous Rx's Medication Instructions Recorded lancets 33 gauge (GlusterTouch Delica #100 ea 05/13/20 Lancets) Hospital Bed Homecare (Hospital #1 ea 05/29/20 Bed) blood-glucose meter (True Metrix #1 ea 08/24/20 Glucose Meter) gabapentin 300 mg capsule 300 mg PO BID #180 cap 11/16/20 metoprolol tartrate 100 mg tablet 100 mg PO BID #180 tab 11/16/20 (Lopressor) trospium 60 mg capsule,extended 60 mg PO QAM #90 cap 11/27/20 release 24 hr insulin aspart U-100 100 unit/mL See Rx Instructions SUBCUT DAILY 12/09/20 (3 mL) subcutaneous pen (Novolog #15 ml Flexpen U-100 Insulin aspart) pen needle, diabetic 31 gauge x #400 ea 12/09/2011/10" (BD Ultra-Fine Mini Pen Needle) clopidogrel 75 mg tablet 75 mg PO QAM #90 tab 01/11/21 blood sugar diagnostic (True #100 ea 02/09/21 Metrix Glucose Test Strip) bupropion HCl 150 mg tablet,12 hr 150 mg PO BID 90 Days #180 ea 02/24/21 sustained-release pantoprazole 40 mg tablet,delayed 40 mg PO DAILY PRN #90 tab 02/24/21 release (Protonix) nystatin 100,000 unit/gram topical 1 applic TOPICAL BID PRN #30 g 04/05/21 cream potassium citrate 15 mEq (1,620 15 meq PO BID #180 tab 04/12/21 mg) tablet,extended release atorvastatin 40 mg tablet (Lipitor) 40 mg PO HS #30 tab 05/10/21 finasteride 5 mg tablet (Proscar) 5 mg PO QAM #90 tab 05/10/21 menthol 0.44 %-zinc oxide 20.6 % 1 applic TOPICAL QID PRN #113 g 05/10/21 topical ointment (Calmoseptine) dulaglutide 1.5 mg/0.5 mL 1.5 mg SQ WK #6 ml 06/08/21 subcutaneous pen injector (Trulicity) Results & Data (ED) Vital Signs Vital Signs - 24 hr 06/27/21 18:42 06/27/21 19:10 06/27/21 19:20 Temperature 36.8 C Temperature Source Temporal Artery Scan Pulse Rate 78 78 76 Pulse Rate [Apical] Pulse Rate from SpO2 Sensor 74 Pulse Rhythm Respiratory Rate 20 23 18 Respiratory Effort / Characteristics Respiratory Depth Normal Blood Pressure 108/74 Blood Pressure Mean 85 Pulse Oximetry 89 L 94 98 Oxygen Delivery Method Room Air Nasal Cannula Nasal Cannula Oxygen Flow Rate 2 2 Sepsis Recent Fever Within 48 Hours Yes Sepsis New/Unexplained Change in Mental Status No Sepsis Action Taken by Nursing No Action Required 06/27/21 19:30 06/27/21 19:40 06/27/21 19:50 Temperature Temperature Source Pulse Rate 75 75 77 Pulse Rate [Apical] Pulse Rate from SpO2 Sensor Pulse Rhythm Respiratory Rate 16 16 Respiratory Effort / Characteristics Respiratory Depth Blood Pressure Blood Pressure Mean Pulse Oximetry 98 99 97 Oxygen Delivery Method Nasal Cannula Nasal Cannula Nasal Cannula Oxygen Flow Rate 2 2 2 Sepsis Recent Fever Within 48 Hours Sepsis New/Unexplained Change in Mental Status Sepsis Action Taken by Nursing 06/27/21 19:54 06/27/21 20:00 06/27/21 20:10 Temperature Temperature Source Pulse Rate 73 71 Pulse Rate [Apical] 78 Pulse Rate from SpO2 Sensor Pulse Rhythm Respiratory Rate 15 Respiratory Effort / Characteristics Non-Labored Spontaneous Respiratory Depth Blood Pressure Blood Pressure Mean Pulse Oximetry 97 100 96 Oxygen Delivery Method Nasal Cannula Nasal Cannula Nasal Cannula Oxygen Flow Rate 2.5 2 2 Sepsis Recent Fever Within 48 Hours Sepsis New/Unexplained Change in Mental Status Sepsis Action Taken by Nursing 06/27/21 20:20 06/27/21 20:27 06/27/21 20:30 Temperature Temperature Source Pulse Rate 72 70 Pulse Rate [Apical] Pulse Rate from SpO2 Sensor Pulse Rhythm Regular Respiratory Rate 21 Respiratory Effort / Characteristics Respiratory Depth Blood Pressure Blood Pressure Mean Pulse Oximetry 100 96 99 Oxygen Delivery Method Nasal Cannula Nasal Cannula Nasal Cannula Oxygen Flow Rate 2 2 2 Sepsis Recent Fever Within 48 Hours Sepsis New/Unexplained Change in Mental Status Sepsis Action Taken by Nursing 06/27/21 20:40 06/27/21 20:50 06/27/21 21:00 Temperature Temperature Source Pulse Rate 77 70 69 Pulse Rate [Apical] Pulse Rate from SpO2 Sensor 70 69 Pulse Rhythm Respiratory Rate 18 Respiratory Effort / Characteristics Respiratory Depth Blood Pressure Blood Pressure Mean Pulse Oximetry 93 98 100 Oxygen Delivery Method Nasal Cannula Oxygen Flow Rate 2 2 2 Sepsis Recent Fever Within 48 Hours Sepsis New/Unexplained Change in Mental Status Sepsis Action Taken by Nursing 06/27/21 21:10 06/27/21 21:20 06/27/21 21:30 Temperature Temperature Source Pulse Rate Pulse Rate [Apical] Pulse Rate from SpO2 Sensor 67 69 66 Pulse Rhythm Respiratory Rate Respiratory Effort / Characteristics Respiratory Depth Blood Pressure Blood Pressure Mean Pulse Oximetry 100 100 100 Oxygen Delivery Method Oxygen Flow Rate 2 2 2 Sepsis Recent Fever Within 48 Hours Sepsis New/Unexplained Change in Mental Status Sepsis Action Taken by Nursing 06/27/21 21:40 06/27/21 21:50 06/27/21 22:00 Temperature Temperature Source Pulse Rate 70 69 Pulse Rate [Apical] Pulse Rate from SpO2 Sensor 70 69 69 Pulse Rhythm Respiratory Rate 21 22 Respiratory Effort / Characteristics Respiratory Depth Blood Pressure Blood Pressure Mean Pulse Oximetry 97 92 92 Oxygen Delivery Method Oxygen Flow Rate 2 2 2 Sepsis Recent Fever Within 48 Hours Sepsis New/Unexplained Change in Mental Status Sepsis Action Taken by Nursing 06/27/21 22:10 Temperature Temperature Source Pulse Rate 70 Pulse Rate [Apical] Pulse Rate from SpO2 Sensor 69 Pulse Rhythm Respiratory Rate 17 Respiratory Effort / Characteristics Respiratory Depth Blood Pressure Blood Pressure Mean Pulse Oximetry 92 Oxygen Delivery Method Oxygen Flow Rate 2 Sepsis Recent Fever Within 48 Hours Sepsis New/Unexplained Change in Mental Status Sepsis Action Taken by Nursing Laboratory Data Result diagrams: 06/27/21 20:30 06/27/21 20:30 Lab Results 06/27/21 06/27/21 06/27/21 Range/Units 20:30 20:30 20:30 WBC 6.76 (4.8-10.8) K/uL RBC 4.67 L (4.7-6.1) M/uL Hgb 12.8 L (14.0-18.0) g/dL Hct 41.7 L (42-52) % MCV 89.3 (80-100) fL MCH 27.4 (25-34) pg MCHC 30.7 L (32-36) g/dL RDW Std Deviation 58.9 H (36.4-46.3) fL RDW Coeff of Cirilo 17.9 H (11.5-14.5) % Plt Count 130 (130-400) K/uL MPV 9.5 (7.4-10.4) fL Immature Gran % (Auto) 0.4 % Neut % (Auto) 81.2 % Lymph % (Auto) 8.6 % Clay % (Auto) 9.6 % Eos % (Auto) 0.1 % Baso % (Auto) 0.1 % Neut # (Auto) 5.48 (1.4-6.5) K/uL Lymph # (Auto) 0.58 L (1.2-3.4) K/uL Clay # (Auto) 0.65 H (0.11-0.59) K/uL Eos # (Auto) 0.01 (0-0.5) K/uL Baso # (Auto) 0.01 (0-0.2) K/uL Immature Gran # (Auto) 0.03 H (0.00-0.02) K/uL VBG pH Cancelled VBG pCO2 Cancelled VBG pO2 Cancelled VBG HCO3 Cancelled VBG O2 Saturation Cancelled VBG Base Excess Cancelled Barometric Pressure Cancelled Sodium 142 (136-145) mmol/L Potassium 4.0 (3.5-5.1) mmol/L Chloride 107 (98-107) mmol/L Carbon Dioxide 28 (21-32) mmol/L Anion Gap 7.0 (3-11) BUN 23 H (7-18) mg/dl Creatinine 2.38 H (0.6-1.4) mg/dl Est Cr Clr Drug Dosing Not Reportable Est GFR ( Amer) 31.3 ml/min Est GFR (Non-Af Amer) 27.0 ml/min BUN/Creatinine Ratio 9.7 L (10-20) Glucose 129 H (70-99) mg/dl Calcium 9.2 (8.5-10.1) mg/dl Total Bilirubin 0.3 (0.2-1) mg/dl AST 19 (15-37) U/L ALT 31 (12-78) U/L Alkaline Phosphatase 100 (45-117) U/L Troponin I < 0.015 (0-0.045) ng/ml Total Protein 6.7 (6.4-8.2) gm/dl Albumin 2.5 L (3.4-5.0) gm/dl Globulin 4.2 H (2.5-4.0) gm/dl Albumin/Globulin Ratio 0.6 L (0.9-2) 06/27/21 Range/Units 21:16 WBC (4.8-10.8) K/uL RBC (4.7-6.1) M/uL Hgb (14.0-18.0) g/dL Hct (42-52) % MCV (80-100) fL MCH (25-34) pg MCHC (32-36) g/dL RDW Std Deviation (36.4-46.3) fL RDW Coeff of Cirilo (11.5-14.5) % Plt Count (130-400) K/uL MPV (7.4-10.4) fL Immature Gran % (Auto) % Neut % (Auto) % Lymph % (Auto) % Clay % (Auto) % Eos % (Auto) % Baso % (Auto) % Neut # (Auto) (1.4-6.5) K/uL Lymph # (Auto) (1.2-3.4) K/uL Clay # (Auto) (0.11-0.59) K/uL Eos # (Auto) (0-0.5) K/uL Baso # (Auto) (0-0.2) K/uL Immature Gran # (Auto) (0.00-0.02) K/uL VBG pH 7.42 H VBG pCO2 45 VBG pO2 68 VBG HCO3 28 VBG O2 Saturation 94.4 VBG Base Excess 3.2 Barometric Pressure 728.6 Sodium (136-145) mmol/L Potassium (3.5-5.1) mmol/L Chloride (98-107) mmol/L Carbon Dioxide (21-32) mmol/L Anion Gap (3-11) BUN (7-18) mg/dl Creatinine (0.6-1.4) mg/dl Est Cr Clr Drug Dosing Est GFR ( Amer) ml/min Est GFR (Non-Af Amer) ml/min BUN/Creatinine Ratio (10-20) Glucose (70-99) mg/dl Calcium (8.5-10.1) mg/dl Total Bilirubin (0.2-1) mg/dl AST (15-37) U/L ALT (12-78) U/L Alkaline Phosphatase (45-117) U/L Troponin I (0-0.045) ng/ml Total Protein (6.4-8.2) gm/dl Albumin (3.4-5.0) gm/dl Globulin (2.5-4.0) gm/dl Albumin/Globulin Ratio (0.9-2) Administered Medications Discontinued Medications Albuterol (Albut/Ipratrop 3mg/0.5mg Neb 3 Ml Vial) 3 ml NEB NOW STA Stop: 06/27/21 19:22 Last Admin: 06/27/21 19:54 Dose: 3 ml Documented by: [id number] Discharge Plan Visit Data Chief Complaint: Fever Stated Complaint: FEVER,CHEST CONGESTION,WEAK,NOT EATING ED Provider: Nabeel Mason Discharge Problem: Weakness, COVID-19, Breathlessness, COPD (chronic obstructive pulmonary disease) Patient Disposition: Being Evaluated by Hospitalist Discharge Instructions Interventions: ED Discharge Assessment Last Done: 06/28/21 00:19
[2021-06-27 20:38] LABS: Basophils # (auto) 0.01 K/uL (0-0.2); Basophils % (auto) 0.1 %; Eosinophils # (auto) 0.01 K/uL (0-0.5); Eosinophils % (auto) 0.1 %; Hematocrit (blood only) 41.7 % (42-52); Hemoglobin 12.8 g/dL (14.0-18.0); Immature Granulocytes # (auto) 0.03 K/uL (0.00-0.02); Immature Granulocytes % (auto) 0.4 %; Lymphocytes # (auto) 0.58 K/uL (1.2-3.4); Lymphocytes % (auto) 8.6 %; Mean Corpuscular Hemoglobin 27.4 pg (25-34); Mean Corpuscular Hgb Conc 30.7 g/dL (32-36); Mean Corpuscular Volume 89.3 fL (80-100); Mean Platelet Volume 9.5 fL (7.4-10.4); Monocytes # (auto) 0.65 K/uL (0.11-0.59); Monocytes % (auto) 9.6 %; Neutrophils # (auto) 5.48 K/uL (1.4-6.5); Neutrophils % (auto) 81.2 %; Platelet Count 130 K/uL (130-400); RDW Coefficient of Variation 17.9 % (11.5-14.5); RDW Standard Deviation 58.9 fL (36.4-46.3); Red Blood Count 4.67 M/uL (4.7-6.1); White Blood Count 6.76 K/uL (4.8-10.8)
[2021-06-27 20:54] LABS: Alanine Aminotransferase 31 U/L (12-78); Albumin Level 2.5 gm/dl (3.4-5.0); Aspartate Aminotransferase 19 U/L (15-37); BUN Creatinine Ratio 9.7 (10-20); Blood Urea Nitrogen 23 mg/dl (7-18); Calcium 9.2 mg/dl (8.5-10.1); Carbon Dioxide 28 mmol/L (21-32); Chloride 107 mmol/L (98-107); Est GFR (African American) 31.3 ml/min; Glucose 129 mg/dl (70-99); Sodium 142 mmol/L (136-145)
[2021-06-27 20:59] LABS: Albumin Globulin Ratio 0.6 (0.9-2); Alkaline Phosphatase 100 U/L (45-117); Bilirubin,Total 0.3 mg/dl (0.2-1); Globulin 4.2 gm/dl (2.5-4.0); Total Protein 6.7 gm/dl (6.4-8.2); Troponin I < 0.015 ng/ml (0-0.045)
[2021-06-27 21:26] LABS: Base Excess VBG 3.2 mEq/L; Oxygen Saturation VBG 94.4 %; pH VBG 7.42 (7.36-7.41)
[2021-06-27] MEDS ORDERED: dexAMETHasone 6 MG in SYRINGE 0 ML IV ONE (23:28)
--- NOTE | 2021-06-27 23:43 | History & Physical Report ---
Date of Service June 27, 2021 Assessment & Plan (1) COVID-19: Plan: Mr. Stephenson is a 70 yo gentleman with multiple medical comorbidities who is being admitted for hypoxia associated with acute COVID 19 infection. - CXR consistent in appearance with viral PNA - O2 sat < 94 qualifies him as having severe disease - check Ddimer, LDH, ESR/CRP, ferritin - symptoms began on 06/23/21 - placing him within the 10 day window to qualify for Remdesivir, however due to his GFR < 30, I will not start at this time. - start IVF and repeat BMP in AM --> if GFR improves to > 30, can initiate Remdesivir - Decadron 6mg IV daily - Azithromycin - Duo Nebs QID - Mucinex - supplemental O2 as needed; baseline O2 sat appears to be in mid 90s (given hx of COPD) (2) COPD (chronic obstructive pulmonary disease): Plan: - continue home inhaler regimen (Breo and Spirivia) - scheduled duo nebs as above - azithromycin as above (3) CAD (coronary artery disease): Plan: - continue home ASA/plavix, lipitor, metoprolol (4) Controlled type 2 diabetes mellitus with complication: Plan: - A1c 7.9 from 06/22/21 - complicated by neuropathy, nephropathy and gastroparesis - blood sugar checks - continue home basal insulin + SSI - continue high dose statin and ASA - due to concurrent IV steroid use, I will place glycemic consult - suspect patient is not on CAR/ARB due to underlying CKD - carb consistent diet - continue home dose gabapentin for neuropathy (5) Chronic kidney disease: Plan: - Cr at 2.38, near baseline - GFR at 27 - IVF as above - repeat BMP in am - renally dose meds as appropriate (6) Normocytic anemia: Plan: - Hgb 12.8, near baseline - MCV 89 - suspect anemia due to underlying kidney disease (7) GERD (gastroesophageal reflux disease): Plan: - continue home dose protonix (8) Depression: Plan: - continue home dose bupropion DVT ppx: [place] [address] units q8 (covid protocol) Diet: Carb consistent, heart healthy Dispo: Med/tele; PT/OT ordered Code: Full, I discussed with patient History of Present Illness Primary Care Provider: Salas Valente DO Mr. Stephenson is a 70 yo male with a PMHx of COPD, type II diabetes and CKD who came in for evaluation of shortness of breath, fever and congestion. Symptoms began Monday06/23/21. He is on baseline oxygen of 2L via NC at night at home for his COPD, but due to this dyspnea, he has been using supplemental O2 during the day as well. He has been diagnosed with SREEKANTH but cannot tolerate a CPAP. He denies any chest pain, abdominal pain, dizziness, nausea/vomiting, or diarrhea. Has not lost sense of taste or smell. He denies any known sick contacts. He was fully vaccinated against COVID 19 in November 2020. Social Hx: Former smoker; he quit in 2017 but smoked 1ppd for 48 years In the ED, he was febrile with normal HR and BP. His O2 sat was 89% on room air, but improved to 98% on 4L via NC. He was COVID 19 positive. His WBC was normal but he did have lymphopenia. His Hgb was mildly low at 12.6, MCV at 89. VBG was obtained showing a pH of 7.42, with a bicarb of 28. His creatinine was 2.38. CMP was otherwise unremarkable. UA ordered. Trop undetectable. CXR showed diffuse bilateral airspace opacities. He was given 1 duoneb. Allergies Allergy/AdvReac Type Severity Reaction Status Date / Time azithromycin Allergy Mild diarrhea Verified 06/27/21 23:03 Home Medications Medication Instructions Recorded Confirmed Type cholecalciferol (vitamin D3) 25 1,000 unit PO BID 08/22/18 06/27/21 History mcg (1,000 unit) tablet (Vitamin D3) acetaminophen 325 mg tablet 650 mg PO TID PRN 04/27/20 06/27/21 History lancets 33 gauge (OneTouch Delica #100 ea 05/13/20 06/27/21 Rx Lancets) Hospital Bed Homecare (Hospital #1 ea 05/29/20 06/27/21 Rx Bed) aspirin 81 mg tablet,delayed 81 mg PO QPM 06/08/20 06/27/21 History release blood-glucose meter (True Metrix #1 ea 08/24/20 06/27/21 Rx Glucose Meter) gabapentin 300 mg capsule 300 mg PO BID #180 cap 11/16/20 06/27/21 Rx metoprolol tartrate 100 mg tablet 100 mg PO BID #180 tab 11/16/20 06/27/21 Rx (Lopressor) trospium 60 mg capsule,extended 60 mg PO QAM #90 cap 11/27/20 06/27/21 Rx release 24 hr insulin aspart U-100 100 unit/mL See Rx Instructions SUBCUT DAILY 12/09/20 06/27/21 Rx (3 mL) subcutaneous pen (Novolog #15 ml Flexpen U-100 Insulin aspart) pen needle, diabetic 31 gauge x #400 ea 12/09/20 06/27/21 Rx 3/16" (BD Ultra-Fine Mini Pen Needle) flash glucose scanning reader #1 ea 12/16/20 06/27/21 History (FreeStyle Nidia 2 [place]) flash glucose sensor (FreeStyle #1 ea 12/16/20 06/27/21 History Nidia 2 Sensor) clopidogrel 75 mg tablet 75 mg PO QAM #90 tab 01/11/21 06/27/21 Rx blood sugar diagnostic (True #100 ea 02/09/21 06/27/21 Rx Metrix Glucose Test Strip) bupropion HCl 150 mg tablet,12 hr 150 mg PO BID 90 Days #180 ea 02/24/21 06/27/21 Rx sustained-release pantoprazole 40 mg tablet,delayed 40 mg PO DAILY PRN #90 tab 02/24/21 06/27/21 Rx release (Protonix) albuterol sulfate 0.63 mg/3 mL 0.63 mg CONTINUOUS NEBULIZATION 03/27/21 06/27/21 History solution for nebulization QID PRN ipratropium 0.5 mg-albuterol 3 mg 3 ml INHALATION Q4 PRN 03/27/21 06/27/21 History (2.5 mg base)/3 mL nebulization soln nystatin 100,000 unit/gram topical 1 applic TOPICAL BID PRN #30 g 04/05/21 06/27/21 Rx cream potassium citrate 15 mEq (1,620 15 meq PO BID #180 tab 04/12/21 06/27/21 Rx mg) tablet,extended release fluticasone furoate 200 1 inh INHALATION DAILY PRN 04/26/21 06/27/21 History mcg-vilanterol 25 mcg/dose inhalation powder (Breo Ellipta) furosemide 20 mg tablet 20 mg PO DAILY PRN 04/26/21 06/27/21 History insulin degludec 200 unit/mL (3 45 unit SUBCUT HS 04/26/21 06/27/21 History mL) subcutaneous pen (Tresiba FlexTouch U-200 insulin) atorvastatin 40 mg tablet (Lipitor) 40 mg PO HS #30 tab 05/10/21 06/27/21 Rx finasteride 5 mg tablet (Proscar) 5 mg PO QAM #90 tab 05/10/21 06/27/21 Rx menthol 0.44 %-zinc oxide 20.6 % 1 applic TOPICAL QID PRN #113 g 05/10/21 06/27/21 Rx topical ointment (Calmoseptine) dulaglutide 1.5 mg/0.5 mL 1.5 mg SQ WK #6 ml 06/08/21 06/27/21 Rx subcutaneous pen injector (Trulicity) Past Med/Surg History Medical History EDILMA (acute kidney injury) BPH (benign prostatic hyperplasia) CAD (coronary artery disease) Acute MO 03/2011, complicated by 3 episodes of v fib requiring electrical shock- ZITA x2 Chronic kidney disease With recent EDILMA on CKD. COPD (chronic obstructive pulmonary disease) Severe, per pulm- 2L N/C prn Dyslipidemia GERD (gastroesophageal reflux disease) History of MO (myocardial infarction) Acute MO 03/2011, complicated by 3 episodes of v fib requiring electrical shock- ZITA x2 Hyperkalemia Hypertension Hypophosphatemia Morbid obesity with BMI of 40.0-44.9, adult Nephrolithiasis Admitted to [facility] for 7 mm L ureteral stone causing hydronephrosis/EDILMA Obstructive sleep apnea of adult Patient refuses CPAP. On anticoagulant therapy plavix daily On home oxygen therapy 2L N/C prn Peripheral neuropathy SBO (small bowel obstruction) current diagnosis--reason for scheduled colonoscopy Uncontrolled type 2 diabetes mellitus with diabetic neuropathy, with long-term current use of insulin UTI (urinary tract infection) Surgical History History of bilateral cataract extraction History of cardiac cath 2010- stents x2 History of carpal tunnel release right History of colonoscopy Colonoscopy: 03/18/19: MAC sedation at [facility] History of lithotripsy Left ESWL: 09/14/18: LMA#5 at [facility] [place] (weight at time: 135.1kg) History of lithotripsy Left ESWL 06/07/19 [facility] History of tooth extraction Hx of transurethral resection of prostate S/P cystoscopy with ureteral stent placement mulitple---last 04/16/20, 03/05/2020 08/23/2018. MAC. No issues. Family History Mother Family history of diabetes mellitus Coronary heart disease MO Father Coronary heart disease MO Myocardial infarction Other No family history of adverse response to anesthesia Denies family history of Ovarian cancer Prostate cancer Breast cancer Colorectal cancer Social History Smoking Status: Former smoker Tobacco Type: Cigarettes Number of Years Since Quit: 7; Second Hand Exposure: Yes (family smoked); Hx Alcohol Use: No Hx Substance Use: No Preferred Language: Estonian Communication Ability: Effective Visual Impairment: No Limitations Hearing Ability: Normal Biochemistry Specialist Required: No Beliefs That Will Affect Care: None marital status: Current Living Situation: Spouse current occupational status: retired How many Children do You have: 3 Other Information That Helps Us Care for You: No Feels Safe at Home: Yes Safety Concerns: Feels Safe At This Time Childhood Exposure to Second-Hand Smoke: Yes caffeine: Yes (Tea and soda ) Dental Care, Regularly: Yes Physical Activity Frequency: Does not Exercise Seatbelt Use: sometimes Sunscreen Use: No Assistive Devices: Cane, Denture - Upper, Oxygen - Continuous and Walker Review of Systems Review of Systems: All systems reviewed & are unremarkable except as noted in HPI & below Physical Exam Constitutional: + obese and cooperative; no acute distress Eyes: + anicteric sclerae ENMT: external ear and nose normal, oropharynx normal Neck: trachea midline Respiratory: normal respiratory effort; no respiratory distress and no cough Auscultation: + rhonchi; no wheezes Cardiovascular: RRR, no murmur, no edema Heart Sounds: normal S1 and normal S2 Extremities: + pedal edema (trace b/l) Gastrointestinal (Abdomen): normal bowel sounds, soft, nontender, no hepatosplenomegaly Musculoskeletal: Head/Neck/Chest: normocephalic and head atraumatic Skin: no rashes, warm and dry Psychiatric: A+Ox3, euthymic affect Results & Data Results & Data ([facility]) Vital Signs (Past 12 Hours) Vital Signs Temp Pulse Pulse Resp BP Pulse Ox 06/27/21 22:10 70 17 92 06/27/21 22:00 69 22 92 06/27/21 21:50 70 21 92 06/27/21 21:40 97 06/27/21 21:30 100 06/27/21 21:20 100 06/27/21 21:10 100 06/27/21 21:00 69 100 06/27/21 20:50 70 98 06/27/21 20:40 77 18 93 06/27/21 20:30 70 21 99 06/27/21 20:27 72 96 06/27/21 20:20 100 06/27/21 20:10 71 96 06/27/21 20:00 73 100 06/27/21 19:54 78 15 97 06/27/21 19:50 77 16 97 06/27/21 19:40 75 99 06/27/21 19:30 75 16 98 06/27/21 19:20 76 18 98 06/27/21 19:10 78 23 94 06/27/21 18:42 36.8 C 78 20 108/74 89 L Supervising Physician Co-Signing Physician Notes Attending addendum: I have physically seen this patient, have supervised the medical residents activities, and agree with the H&P unless as otherwise noted. Assessment and Plan: COVID-19 pneumonia with hypoxia/COPD Symptom onset 06/23/2021 Dexamethasone 6 mg IV daily Azithromycin 5 mg IV daily Duonebs every 4 hours while awake and every 2 hours when necessary Guaifenesin extended release 12 mg p.o. twice daily Nasal cannula oxygen, titrate to keep pulse ox 92 to 94% Patient is presently not a candidate for remdesivir due to creatinine clearance. Will hydrate with IV fluids overnight, recheck laboratories in a.m., and see if his creatinine clearance has improved CAD- Continue aspirin, clopidogrel and metoprolol Hyperlipidemia- Continue atorvastatin Remaining orders and notations as noted (1) CAD (coronary artery disease) Associated angina: without angina Coronary Disease-Associated Artery/Lesion type: [place] artery [place] vs. transplanted heart: [place] heart Qualified Code(s): I25.10 - Atherosclerotic heart disease of [place] coronary artery without angina pectoris (2) Depression Depression Type: unspecified Qualified Code(s): F32.9 - Major depressive disorder, single episode, unspecified (3) Chronic kidney disease Chronic kidney disease stage: unspecified stage Qualified Code(s): N18.9 - Chronic kidney disease, unspecified (4) COPD (chronic obstructive pulmonary disease) COPD type: unspecified COPD Qualified Code(s): J44.9 - Chronic obstructive pulmonary disease, unspecified (5) GERD (gastroesophageal reflux disease) Esophagitis presence: without esophagitis Qualified Code(s): K21.9 - Gastro- esophageal reflux disease without esophagitis
[2021-06-28] MEDS ORDERED: PANTOprazole 40 MG TAB PO PRN (00:41)
[2021-06-28] MEDS ORDERED: ACETAMINOPHEN 325 MG TAB PO PRN (00:41)
[2021-06-28] MEDS ORDERED: NON-FORMULARY MEDICATION (Dulaglutide [Trulicity] 1.5 mg/0.5 mL pen injector) SQ SCH (00:41)
[2021-06-28] MEDS ORDERED: ONDANSETRON INJ 2 MG/ML 2 ML VIAL IV PRN (00:41)
[2021-06-28] MEDS ORDERED: GLUCOSE 10 TABS/TUBE PO PRN (00:41)
[2021-06-28] MEDS ORDERED: POLYETHYLENE (MIRALAX) 17 GM PACK PO PRN (00:41)
[2021-06-28] MEDS ORDERED: SODIUM CHLORIDE 0.9% 1000ML 1,000 ML IV SCH (00:41)
[2021-06-28] MEDS ORDERED: DEXTROSE 50% 50 ML SYRINGE IV PRN (00:41)
[2021-06-28] MEDS ORDERED: GLUCAGON FOR INJ 1 MG VIAL SQ PRN (00:41)
[2021-06-28] MEDS ORDERED: GLUCOSE 40% GEL 15 GM TUBE PO PRN (00:41)
[2021-06-28] MEDS ORDERED: CARBOHYDRATES FOR HYPOGLYCEMIA PO PRN (00:41)
[2021-06-28 01:07] LABS: C Reactive Protein 3.19 mg/dl (0-0.29); Ferritin 33.9 ng/ml (8-388)
[2021-06-28] MEDS ORDERED: PHARMACY GLYCEMIC MGMT CONSULT PRN (01:36)
[2021-06-28] MEDS ORDERED: INSULIN GLARGINE SOLOSTAR 100 UNITS/ML 3 ML PEN SQ SCH (02:15)
[2021-06-28] MEDS: INSULIN ASPART 100 UNITS/ML 3 ML PEN SC SCH ×5 (02:55→20:59)
--- NOTE | 2021-06-28 04:44 | Billing Data ---
Date of Service June 28, 2021 Coding Level of Care Code 99226 Initial Inpt Care Lvl 3
[2021-06-28] MEDS: HEPARIN SOD 5,000 UNIT/0.5 ML VIAL SQ SCH ×3 (05:32→20:32)
[2021-06-28 06:21] LABS: Appearance Urine Clear (Clear); Bacteria Urine Automated Negative (Negative); Bilirubin Urine Negative (Negative); Blood Urine 3+ (Negative); Color Urine Yellow; Glucose Urine UA Negative (Negative); Ketones Urine Trace (Negative); Leukocyte Esterase Urine Negative (Negative); Nitrite Urine Negative (Negative); RBC Urine Automated >30 /hpf (0-4); Specific Gravity Urine 1.016 (1.000-1.030); Urobilinogen Urine Negative (Negative); pH Urine 7.5 (4.5-7.5)
[2021-06-28 06:23] LABS: Protein Urine 1+ (Negative)
[2021-06-28] MEDS: ALBUT/IPRATROP 3MG/0.5MG NEB 3 ML VIAL NEB SCH ×4 (07:13→18:32)
[2021-06-28 08:07] LABS: Hematocrit (blood only) 41.5 % (42-52); Hemoglobin 12.5 g/dL (14.0-18.0); Immature Granulocytes # (auto) 0.02 K/uL (0.00-0.02); Immature Granulocytes % (auto) 0.4 %; Lymphocytes # (auto) 0.48 K/uL (1.2-3.4); Lymphocytes % (auto) 8.9 %; Mean Corpuscular Hemoglobin 26.9 pg (25-34); Mean Corpuscular Hgb Conc 30.1 g/dL (32-36); Mean Corpuscular Volume 89.4 fL (80-100); Mean Platelet Volume 9.4 fL (7.4-10.4); Monocytes # (auto) 0.45 K/uL (0.11-0.59); Monocytes % (auto) 8.3 %; Neutrophils # (auto) 4.45 K/uL (1.4-6.5); Neutrophils % (auto) 82.4 %; Platelet Count 126 K/uL (130-400); RDW Coefficient of Variation 17.8 % (11.5-14.5); RDW Standard Deviation 58.1 fL (36.4-46.3); Red Blood Count 4.64 M/uL (4.7-6.1)
[2021-06-28 08:14] LABS: D Dimer 290 ug/L FEU (0-500)
--- NOTE | 2021-06-28 08:20 | XRay Report ---
XR chest 1V portable CLINICAL HISTORY: Fever. COMPARISON STUDY: Chest CT November 16, 2020. Chest radiograph March 28, 2021. FINDINGS: Patient is rotated. No pneumothorax or pleural effusion is present. Cardiomediastinal silho uette is stable. There is mild right lower lung interstitial thickening, similar to prior exams. Left mid lung interstitial thickening is likely chronic. Hazy left basilar opacity is unchanged. There is no lobar consolidation. IMPRESSION: No acute findings. No significant change in appearance of the chest. ACT 112: Negative or not required by law. Electronically signed by: Mike De Dios M.D. 06/28/2021 8:18 AM
[2021-06-28 08:40] LABS: BUN Creatinine Ratio 10.1 (10-20); Calcium 8.9 mg/dl (8.5-10.1); Creatinine Clr Calc Pharmacy 42.2 ml/min; Est GFR (Non-African American) 30.2 ml/min; Potassium 4.4 mmol/L (3.5-5.1)
[2021-06-28] MEDS ORDERED: INSULIN HUMAN NPH SC ONE (09:00)
[2021-06-28] MEDS: buPROPion SR 150 MG TABCR PO SCH ×2 (09:07→20:31)
[2021-06-28] MEDS: GABAPENTIN 300 MG CAP PO SCH ×2 (09:08→20:31)
[2021-06-28] MEDS: CLOPIDOGREL BISULFATE 75 MG TAB PO SCH (09:08)
[2021-06-28] MEDS: dexAMETHasone 6 MG in SYRINGE 0 ML IV SCH (09:08)
[2021-06-28] MEDS: FINASTERIDE 5 MG TAB PO SCH (09:09)
[2021-06-28] MEDS: METOPROLOL TARTRATE 100 MG TAB PO SCH ×2 (09:10→20:31)
[2021-06-28] MEDS: POTASSIUM CITRATE 10 MEQ TAB PO SCH ×2 (09:11→20:32)
--- NOTE | 2021-06-28 09:44 | Hospitalist Progress Note ---
Date of Service June 28, 2021 Assessment & Plan (1) COVID-19: Plan: Mr. Stephenson is a 70 yo gentleman with multiple medical comorbidities who is being admitted for hypoxia associated with acute COVID 19 infection. -Acute on chronic respiratory failure with hypoxia, secondary to Covid pneumonia, CXR consistent in appearance with viral PNA - O2 sat < 94 qualifies him as having severe disease -normal Ddimer, LDH , ESR 79 /CRP 3.19 , ferritin - symptoms began on 06/23/21 - placing him within the 10 day window to qualify for Remdesivir, however due to his GFR < 30, I will not start at this time. - start IVF and repeat BMP in AM --> GFR improve to > 30, can initiate Remdesivir - Decadron 6mg IV daily - Azithromycin - Duo Nebs QID - Mucinex - supplemental O2 as needed; baseline O2 sat appears to be in mid 90s (given hx of COPD) (2) COPD (chronic obstructive pulmonary disease): Plan: - continue home inhaler regimen (Breo and Spirivia) - scheduled duo nebs as above - azithromycin as above (3) CAD (coronary artery disease): Plan: - continue home ASA/plavix, lipitor, metoprolol (4) Controlled type 2 diabetes mellitus with complication: Plan: - A1c 7.9 from 06/22/21 - complicated by neuropathy, nephropathy and gastroparesis - blood sugar checks - continue home basal insulin + SSI - continue high dose statin and ASA - suspect patient is not on CAR/ARB due to underlying CKD - carb consistent diet - continue home dose gabapentin for neuropathy (5) Chronic kidney disease: Plan: - Cr at 2.17, near baseline - GFR at 30 - IVF as above - repeat BMP in am - renally dose meds as appropriate (6) Normocytic anemia: Plan: - Hgb 12.8, near baseline - MCV 89 - suspect anemia due to underlying kidney disease (7) GERD (gastroesophageal reflux disease): Plan: - continue home dose protonix (8) Depression: Plan: - continue home dose bupropion DVT ppx: Renally dosed unfractionated heparin SQ 7500 units q8 (covid protocol) Diet: Carb consistent, heart healthy Dispo: Med/tele; PT/OT ordered Code: Full, discussed with patient Admission and Anticipated Discharge Date Admission Date: June 27, 2021 Subjective Patient states he feels improved today. Typically is on home oxygen of 2 L is on 4 L here no significant coughing does feel significantly fatigued but better energy. Remains with low-grade temperatures 100.2 Review of Systems Review of Systems: Moderate distress and fatigue no headache, no visual changes no speech or swallowing issues no chest pain, pressure or palpitations Persistent shortness of breath, nonproductive cough no wheezes no abdominal pain, nausea or vomiting, diarrhea or constipation no dysuria, hematuria or frequency no focal joint pain or swelling no back pain, CVA tenderness or radicular pain no bruising, bleeding or rashes no focal signs of weakness or numbness or altered sensation no complaints of anxiety or depression.. Results & Data Results & Data ([facility]) Vital Signs (Past 12 Hours) Vital Signs Temp Pulse Pulse Pulse Resp BP Pulse Ox 06/28/21 07:13 71 16 95 06/28/21 06:58 98.8 F 75 22 148/68 H 93 06/28/21 03:48 100.2 F H 85 19 165/81 H 94 06/28/21 00:25 99.5 F 82 14 150/83 H 93 06/27/21 22:10 70 17 92 06/27/21 22:00 69 22 92 06/27/21 21:50 70 21 92 06/27/21 21:40 97 PG Care Time/CCT Total # of Minutes Spent Total Time Spent with Patient: Total time spent is greater than 50% in coordination of care (as documented) at patient's floor/unit and/or counseling patient: Coding Level of Care Code 65657 Subseq Hosp Care Lvl 3 Diagnoses COVID-19 U07.1 COPD (chronic obstructive pulmonary disease) J44.9 COPD type: unspecified COPD CAD (coronary artery disease) I25.10 Associated angina: without angina Coronary Disease-Associated Artery/Lesion type: [place] artery [place] vs. transplanted heart: [place] heart Controlled type 2 diabetes mellitus with complication E11.8 Chronic kidney disease N18.9 Chronic kidney disease stage: unspecified stage Normocytic anemia D64.9 GERD (gastroesophageal reflux disease) K21.9 Esophagitis presence: without esophagitis Depression F32.9 Depression Type: unspecified (1) CAD (coronary artery disease) Associated angina: without angina Coronary Disease-Associated Artery/Lesion type: [place] artery [place] vs. transplanted heart: [place] heart Qualified Code(s): I25.10 - Atherosclerotic heart disease of [place] coronary artery without angina pectoris (2) Depression Depression Type: unspecified Qualified Code(s): F32.9 - Major depressive disorder, single episode, unspecified (3) Chronic kidney disease Chronic kidney disease stage: unspecified stage Qualified Code(s): N18.9 - Chronic kidney disease, unspecified (4) COPD (chronic obstructive pulmonary disease) COPD type: unspecified COPD Qualified Code(s): J44.9 - Chronic obstructive pulmonary disease, unspecified (5) GERD (gastroesophageal reflux disease) Esophagitis presence: without esophagitis Qualified Code(s): K21.9 - Gastro- esophageal reflux disease without esophagitis
[2021-06-28] MEDS ORDERED: REMDESIVIR 200 MG in SODIUM CHLORIDE 0.9% 210 ML IV STA (09:56)
--- NOTE | 2021-06-28 10:19 | Pharmacy Report ---
Pharmacy Glycemic Short Note 2 - Date of Service June 28, 2021 - Glycemic Short BSG Results (Last 24 hours): 06/27/21 06/28/21 06/28/21 20:30 02:12 07:50 Glucose 129 H 192 H POC Glucose 119 H 06/28/21 08:02 Glucose POC Glucose 174 H OUTPATIENT ANTIDIABETIC REGIMEN: * Tresiba 45 units SC HS * Novolog SSI * Trulicity qMonday * HbA1c 7.9% on 06/22/21 ASSESSMENT: * 70 yo M with T2DM admitted with COVID-19 and started on dexamethasone daily * Recent admission 3 months ago with very minimal insulin required as an inpatient and decent BSG control, although he was not on steroids at that time * Will initiate severe stress estimate of Novolog based on steroids * Will initiate NPH to help with post-prandial spikes from steroids. Will also continue HS long-acting insulin per outpatient schedule, but will be significantly less aggressive than his outpatient regimen 2nd recent admission data and addition of NPH PLAN FOR INPATIENT GLYCEMIC CONTROL: * Hold outpatient diabetes medications * Basal insulin * Lantus 10-20 units SQ HS, depending on BSG * Bolus insulin * NovoLog per scale ACHS or Q6hrs while NPO * Goal Range: Low 110 mg/dL - High 140 mg/dL * Correction Factor: 10 mg/dL/unit * Nutritional / Prandial insulin per carb ratio of 1 unit per 4 grams CHO consumed PLAN FOR DISCHARGE: * tbd
[2021-06-28] MEDS: guaiFENesin 600 MG TABCR PO SCH ×2 (10:49→20:30)
--- NOTE | 2021-06-28 11:08 | Electrocardiogram Report ---
Test Reason : Blood Pressure : / mmHG Vent. Rate : 072 BPM Atrial Rate : 072 BPM P-R Int : 136 ms QRS Dur : 086 ms QT Int : 392 ms P-R-T Axes : 073 -20 025 degrees QTc Int : 429 ms Normal sinus rhythm possible Inferior infarct (cited on or before 27-MAR-2021) Nonspecific ST abnormality Abnormal ECG When compared with ECG of 27-MAR-2021 18:43, ST no longer elevated in Inferior leads Nonspecific T wave abnormality now evident in Anterior leads Confirmed by Frederic Le ([id number] on 06/28/2021 11:08:21 AM Referred By: REFERRED SELF Confirmed By:Fabio Le
[2021-06-28] MEDS ORDERED: SODIUM CHLORIDE 0.9% 10ML FLUSH IV ONE (12:00)
--- NOTE | 2021-06-28 19:39 | Hospitalist Progress Note ---
Date of Service June 28, 2021 Assessment & Plan (1) COVID-19: Plan: Mr. Stephenson is a 70 yo gentleman with multiple medical comorbidities who is being admitted for hypoxia associated with acute COVID 19 infection. -Acute on chronic respiratory failure with hypoxia, secondary to Covid pneumonia, CXR consistent in appearance with viral PNA - O2 sat < 94 qualifies him as having severe disease -normal Ddimer, LDH , ESR 79 /CRP 3.19 , ferritin - symptoms began on 06/23/21 - placing him within the 10 day window to qualify for Remdesivir, however due to his GFR < 30, I will not start at this time. - start IVF and repeat BMP in AM --> GFR improve to > 30, can initiate Remdesivir - Decadron 6mg IV daily - Azithromycin - Duo Nebs QID - Mucinex - supplemental O2 as needed; baseline O2 sat appears to be in mid 90s (given hx of COPD) (2) COPD (chronic obstructive pulmonary disease): Plan: - continue home inhaler regimen (Breo and Spirivia) - scheduled duo nebs as above - azithromycin as above (3) CAD (coronary artery disease): Plan: - continue home ASA/plavix, lipitor, metoprolol (4) Controlled type 2 diabetes mellitus with complication: Plan: - A1c 7.9 from 06/22/21 - complicated by neuropathy, nephropathy and gastroparesis - blood sugar checks - continue home basal insulin + SSI - continue high dose statin and ASA - suspect patient is not on CAR/ARB due to underlying CKD - carb consistent diet - continue home dose gabapentin for neuropathy (5) Chronic kidney disease: Plan: - Cr at 2.17, near baseline - GFR at 30 - IVF as above - repeat BMP in am - renally dose meds as appropriate (6) Normocytic anemia: Plan: - Hgb 12.8, near baseline - MCV 89 - suspect anemia due to underlying kidney disease (7) GERD (gastroesophageal reflux disease): Plan: - continue home dose protonix (8) Depression: Plan: - continue home dose bupropion DVT ppx: Renally dosed unfractionated heparin SQ 7500 units q8 (covid protocol) Diet: Carb consistent, heart healthy Dispo: Med/tele; PT/OT ordered Code: Full, discussed with patient (9) CKD (chronic kidney disease) stage 4, GFR 15-29 ml/min: Admission and Anticipated Discharge Date Admission Date: June 27, 2021 Results & Data Results & Data ([facility]) Vital Signs (Past 12 Hours) Vital Signs Temp Pulse Resp BP Pulse Ox Pulse Ox Pulse Ox 06/28/21 18:32 88 20 96 06/28/21 16:03 93 06/28/21 15:20 99.1 F 70 19 131/77 94 06/28/21 14:36 79 16 95 06/28/21 12:37 97.9 F 73 18 145/98 H 93 06/28/21 11:17 81 22 96 06/28/21 10:29 94 95 PG Care Time/CCT Total # of Minutes Spent Total Time Spent with Patient: Total time spent is greater than 50% in coordination of care (as documented) at patient's floor/unit and/or counseling patient: Coding Level of Care Code None Diagnoses COVID-19 U07.1 COPD (chronic obstructive pulmonary disease) J44.9 COPD type: unspecified COPD CAD (coronary artery disease) I25.10 Coronary Disease-Associated Artery/Lesion type: [place] artery [place] vs. transplanted heart: [place] heart Associated angina: without angina Controlled type 2 diabetes mellitus with complication E11.8 Chronic kidney disease N18.9 Chronic kidney disease stage: unspecified stage Normocytic anemia D64.9 GERD (gastroesophageal reflux disease) K21.9 Esophagitis presence: without esophagitis Depression F32.9 Depression Type: unspecified CKD (chronic kidney disease) stage 4, GFR 15-29 ml/min N18.4 (1) COPD (chronic obstructive pulmonary disease) COPD type: unspecified COPD Qualified Code(s): J44.9 - Chronic obstructive pulmonary disease, unspecified (2) CAD (coronary artery disease) Coronary Disease-Associated Artery/Lesion type: [place] artery [place] vs. transplanted heart: [place] heart Associated angina: without angina Qualified Code(s): I25.10 - Atherosclerotic heart disease of [place] coronary artery without angina pectoris (3) Chronic kidney disease Chronic kidney disease stage: unspecified stage Qualified Code(s): N18.9 - Chronic kidney disease, unspecified (4) GERD (gastroesophageal reflux disease) Esophagitis presence: without esophagitis Qualified Code(s): K21.9 - Gastro- esophageal reflux disease without esophagitis (5) Depression Depression Type: unspecified Qualified Code(s): F32.9 - Major depressive disorder, single episode, unspecified
[2021-06-28] MEDS: ATORVASTATIN 40 MG TAB PO SCH (20:31)
[2021-06-28] MEDS: ASPIRIN 81 MG ECTAB PO SCH (20:31)
[2021-06-28] MEDS: INSULIN GLARGINE SOLOSTAR 100 UNITS/ML 3 ML PEN SC SCH (21:00)
[2021-06-29] MEDS: HEPARIN SOD 5,000 UNIT/0.5 ML VIAL SQ SCH ×3 (05:30→21:23)
[2021-06-29] MEDS: ALBUT/IPRATROP 3MG/0.5MG NEB 3 ML VIAL NEB SCH ×4 (07:33→20:21)
[2021-06-29] MEDS: dexAMETHasone 6 MG in SYRINGE 0 ML IV SCH (08:09)
[2021-06-29] MEDS: GABAPENTIN 300 MG CAP PO SCH ×2 (08:10→21:21)
[2021-06-29] MEDS: POTASSIUM CITRATE 10 MEQ TAB PO SCH ×2 (08:10→21:20)
[2021-06-29] MEDS: METOPROLOL TARTRATE 100 MG TAB PO SCH ×2 (08:10→21:21)
[2021-06-29] MEDS: guaiFENesin 600 MG TABCR PO SCH ×2 (08:10→21:21)
[2021-06-29] MEDS: buPROPion SR 150 MG TABCR PO SCH ×2 (08:11→21:19)
[2021-06-29] MEDS: CLOPIDOGREL BISULFATE 75 MG TAB PO SCH (08:11)
[2021-06-29] MEDS: FINASTERIDE 5 MG TAB PO SCH (08:11)
[2021-06-29] MEDS ORDERED: INSULIN HUMAN NPH SC ONE (09:00)
[2021-06-29] MEDS: INSULIN ASPART 100 UNITS/ML 3 ML PEN SC SCH ×4 (09:18→21:39)
--- NOTE | 2021-06-29 11:37 | Pharmacy Report ---
Pharmacy Glycemic Short Note 2 - Date of Service June 29, 2021 - Glycemic Short BSG Results (Last 24 hours): 06/28/21 06/28/21 06/28/21 11:40 16:59 20:05 POC Glucose 217 H 198 H 154 H 06/29/21 07:52 POC Glucose 90 OUTPATIENT ANTIDIABETIC REGIMEN: * Tresiba 45 units SC HS * Novolog SSI * Trulicity qMonday * HbA1c 7.9% on 06/22/21 ASSESSMENT: 06/29 * Stressors stable * AM fasting BSG decreased from 174 mg/dL yesterday to 90 mg/dL today. Larger Lantus dose on 06/28 *AM* likely contributing. Will continue with same NPH dose and PM Lantus dose. * Post-prandial BSG's elevated x2 yesterday. May require tightening on CHO ratio. Will determine need to do so based on breakfast to lunch trend today 06/28 * 70 yo M with T2DM admitted with COVID-19 and started on dexamethasone daily * Recent admission 3 months ago with very minimal insulin required as an inpatient and decent BSG control, although he was not on steroids at that time * Will initiate severe stress estimate of Novolog based on steroids * Will initiate NPH to help with post-prandial spikes from steroids. Will also continue HS long-acting insulin per outpatient schedule, but will be significantly less aggressive than his outpatient regimen 2nd recent admission data and addition of NPH PLAN FOR INPATIENT GLYCEMIC CONTROL: * Hold outpatient diabetes medications * Basal insulin * Lantus 0-10 units SQ HS, depending on BSG * Bolus insulin * NovoLog per scale ACHS or Q6hrs while NPO * Goal Range: Low 110 mg/dL - High 140 mg/dL * Correction Factor: 10 mg/dL/unit * Nutritional / Prandial insulin per carb ratio of 1 unit per 4 grams CHO consumed PLAN FOR DISCHARGE: * tbd
[2021-06-29] MEDS: SODIUM CHLORIDE 0.9% 10ML FLUSH IV SCH (12:44)
[2021-06-29] MEDS: REMDESIVIR 100 MG in SODIUM CHLORIDE 0.9% 230 ML IV SCH (12:44)
--- NOTE | 2021-06-29 18:58 | Hospitalist Progress Note ---
Date of Service June 29, 2021 Assessment & Plan (1) COVID-19: Plan: Mr. Stephenson is a 70 yo gentleman with multiple medical comorbidities who is being admitted for hypoxia associated with acute COVID 19 infection. -Acute on chronic respiratory failure with hypoxia, secondary to Covid pneumonia, CXR consistent in appearance with viral PNA - O2 sat < 94 qualifies him as having severe disease -normal Ddimer, LDH , ESR 79 /CRP 3.19 , ferritin - symptoms began on 06/23/21 - placing him within the 10 day window to qualify for Remdesivir, - start IVF and repeat BMP in AM --> GFR improve to > 30, did start remdesivir 06/28/21 - Decadron 6mg IV daily - Azithromycin - Duo Nebs QID - Mucinex - supplemental O2 as needed; baseline O2 sat appears to be in mid 90s (given hx of COPD) (2) COPD (chronic obstructive pulmonary disease): Plan: - continue home inhaler regimen (Breo and Spirivia) - scheduled duo nebs as above - azithromycin as above chronic home oxygen makes him have respiratory insufficiency at this time (3) CAD (coronary artery disease): Plan: - continue home ASA/plavix, lipitor, metoprolol (4) Controlled type 2 diabetes mellitus with complication: Plan: - A1c 7.9 from 06/22/21 - complicated by neuropathy, nephropathy and gastroparesis - blood sugar checks - continue home basal insulin + SSI - continue high dose statin and ASA - suspect patient is not on CAR/ARB due to underlying CKD - carb consistent diet - continue home dose gabapentin for neuropathy (5) Chronic kidney disease: Plan: - Cr at 2.17, near baseline - GFR at 30 - repeat BMP in am - renally dose meds as appropriate (6) Normocytic anemia: Plan: - Hgb 12.8, near baseline - MCV 89 - suspect anemia due to underlying kidney disease (7) GERD (gastroesophageal reflux disease): Plan: - continue home dose protonix (8) Depression: Plan: - continue home dose bupropion DVT ppx: Renally dosed unfractionated heparin SQ 7500 units q8 (covid protocol) Diet: Carb consistent, heart healthy Dispo: Med/tele; PT/OT ordered Code: Full, discussed with patient (9) CKD (chronic kidney disease) stage 4, GFR 15-29 ml/min: Admission and Anticipated Discharge Date Admission Date: June 27, 2021 Subjective Patient states he feels improved today. Typically is on home oxygen of 2 L is on up to 4 L here no significant coughing does feel significantly fatigued but better energy. Remains with low-grade temperatures 100.2-100.4 Review of Systems Review of Systems: Mild distress and fatigue no headache, no visual changes no speech or swallowing issues no chest pain, pressure or palpitations Persistent shortness of breath, nonproductive cough no wheezes no abdominal pain, nausea or vomiting, diarrhea or constipation no dysuria, hematuria or frequency no focal joint pain or swelling no back pain, CVA tenderness or radicular pain no bruising, bleeding or rashes no focal signs of weakness or numbness or altered sensation no complaints of anxiety or depression.. Physical Exam Physical Exam: The patient appeared well nourished and normally developed. Vital signs as documented. Head exam is normocephalic atraumatic Neck is without JVD, thyromegaly, or carotid bruits. Lungs are diminished throughout basilar rales Cardiac exam, Rhythm is regular.. No murmurs, rubs or gallops. Abdominal exam reveals normal bowel sounds, soft non tender, no masses Extremities are trace edematous b/l and both pedal pulses are present Neurologic exam is alert and oriented, no focal loss of strength or sensation Skin is without bruises or rashes Psychologically is without concerns for anxiety or depression Results & Data Results & Data ([facility]) Vital Signs (Past 12 Hours) Vital Signs Temp Pulse Resp BP Pulse Ox 06/29/21 16:06 99.3 F 73 23 125/73 93 06/29/21 14:50 78 18 94 06/29/21 12:02 100.0 F H 74 22 158/92 H 91 06/29/21 11:35 71 18 95 06/29/21 07:33 76 18 97 PG Care Time/CCT Total # of Minutes Spent Total Time Spent with Patient: Total time spent is greater than 50% in coordination of care (as documented) at patient's floor/unit and/or counseling patient: Coding Level of Care Code 47162 Subseq Hosp Care Lvl 2 Diagnoses COVID-19 U07.1 COPD (chronic obstructive pulmonary disease) J44.9 COPD type: unspecified COPD CAD (coronary artery disease) I25.10 Coronary Disease-Associated Artery/Lesion type: [place] artery [place] vs. transplanted heart: [place] heart Associated angina: without angina Controlled type 2 diabetes mellitus with complication E11.8 Chronic kidney disease N18.9 Chronic kidney disease stage: unspecified stage Normocytic anemia D64.9 GERD (gastroesophageal reflux disease) K21.9 Esophagitis presence: without esophagitis Depression F32.9 Depression Type: unspecified CKD (chronic kidney disease) stage 4, GFR 15-29 ml/min N18.4 (1) COPD (chronic obstructive pulmonary disease) COPD type: unspecified COPD Qualified Code(s): J44.9 - Chronic obstructive pulmonary disease, unspecified (2) CAD (coronary artery disease) Coronary Disease-Associated Artery/Lesion type: [place] artery [place] vs. transplanted heart: [place] heart Associated angina: without angina Qualified Code(s): I25.10 - Atherosclerotic heart disease of [place] coronary artery without angina pectoris (3) Chronic kidney disease Chronic kidney disease stage: unspecified stage Qualified Code(s): N18.9 - Chronic kidney disease, unspecified (4) GERD (gastroesophageal reflux disease) Esophagitis presence: without esophagitis Qualified Code(s): K21.9 - Gastro- esophageal reflux disease without esophagitis (5) Depression Depression Type: unspecified Qualified Code(s): F32.9 - Major depressive disorder, single episode, unspecified
[2021-06-29] MEDS: ASPIRIN 81 MG ECTAB PO SCH (21:19)
[2021-06-29] MEDS: ATORVASTATIN 40 MG TAB PO SCH (21:19)
[2021-06-29] MEDS: INSULIN GLARGINE SOLOSTAR 100 UNITS/ML 3 ML PEN SC SCH (21:39)
[2021-06-30] MEDS: HEPARIN SOD 5,000 UNIT/0.5 ML VIAL SQ SCH ×3 (06:31→21:01)
[2021-06-30] MEDS: ALBUT/IPRATROP 3MG/0.5MG NEB 3 ML VIAL NEB SCH ×4 (07:21→19:19)
[2021-06-30] MEDS: dexAMETHasone 6 MG in SYRINGE 0 ML IV SCH (09:14)
[2021-06-30] MEDS: CLOPIDOGREL BISULFATE 75 MG TAB PO SCH (09:14)
[2021-06-30] MEDS: FINASTERIDE 5 MG TAB PO SCH (09:15)
[2021-06-30] MEDS: buPROPion SR 150 MG TABCR PO SCH ×2 (09:15→20:59)
[2021-06-30] MEDS: METOPROLOL TARTRATE 100 MG TAB PO SCH ×2 (09:16→21:00)
[2021-06-30] MEDS: guaiFENesin 600 MG TABCR PO SCH ×2 (09:16→20:59)
[2021-06-30] MEDS: POTASSIUM CITRATE 10 MEQ TAB PO SCH ×2 (09:16→20:58)
[2021-06-30] MEDS: INSULIN ASPART 100 UNITS/ML 3 ML PEN SC SCH ×4 (09:22→20:57)
[2021-06-30] MEDS: INSULIN HUMAN NPH SC SCH (09:24)
[2021-06-30] MEDS: GABAPENTIN 300 MG CAP PO SCH ×2 (09:36→21:00)
[2021-06-30] MEDS: REMDESIVIR 100 MG in SODIUM CHLORIDE 0.9% 230 ML IV SCH (11:45)
[2021-06-30] MEDS: SODIUM CHLORIDE 0.9% 10ML FLUSH IV SCH (13:22)
--- NOTE | 2021-06-30 18:06 | Hospitalist Progress Note ---
Date of Service June 30, 2021 Assessment & Plan (1) COVID-19: Plan: Mr. Stephenson is a 70 yo gentleman with multiple medical comorbidities who is being admitted for hypoxia associated with acute COVID 19 infection. -Acute on chronic respiratory failure with hypoxia, secondary to Covid pneumonia, CXR consistent in appearance with viral PNA - O2 sat < 94 qualifies him as having severe disease -normal Ddimer, LDH , ESR 79 /CRP 3.19 , ferritin - symptoms began on 06/23/21 - placing him within the 10 day window to qualify for Remdesivir, - start IVF and repeat BMP in AM --> GFR improve to > 30, did start remdesivir 06/28/21 - Decadron 6mg IV daily - Azithromycin - Duo Nebs QID - Mucinex - pt has returned to baseline, if stable tomorrow will taper steroids, (2) COPD (chronic obstructive pulmonary disease): Plan: - continue home inhaler regimen (Breo and Spirivia) - scheduled duo nebs as above - azithromycin as above chronic home oxygen makes him have respiratory insufficiency at this time (3) CAD (coronary artery disease): Plan: - continue home ASA/plavix, lipitor, metoprolol (4) Controlled type 2 diabetes mellitus with complication: Plan: - A1c 7.9 from 06/22/21 - complicated by neuropathy, nephropathy and gastroparesis - blood sugar checks - continue home basal insulin + SSI - continue high dose statin and ASA - suspect patient is not on CAR/ARB due to underlying CKD - carb consistent diet - continue home dose gabapentin for neuropathy (5) Chronic kidney disease: Plan: - Cr at 2.17, near baseline - GFR at 30 - renally dose meds as appropriate (6) Normocytic anemia: Plan: - Hgb 12.8, near baseline - MCV 89 - suspect anemia due to underlying kidney disease (7) GERD (gastroesophageal reflux disease): Plan: - continue home dose protonix (8) Depression: Plan: - continue home dose bupropion DVT ppx: Renally dosed unfractionated heparin SQ 7500 units q8 (covid protocol) Diet: Carb consistent, heart healthy Code: Full, discussed with patient (9) CKD (chronic kidney disease) stage 4, GFR 15-29 ml/min: Admission and Anticipated Discharge Date Admission Date: June 27, 2021 Subjective Pts respiratory status is much improved, not able to stand more than 10 seconds. Review of Systems Review of Systems: Mild distress and fatigue no headache, no visual changes no speech or swallowing issues no chest pain, pressure or palpitations Persistent shortness of breath, but seems at baseline no abdominal pain, nausea or vomiting, diarrhea or constipation no dysuria, hematuria or frequency no focal joint pain or swelling no back pain, CVA tenderness or radicular pain no bruising, bleeding or rashes no focal signs of weakness but overall is very weak no complaints of anxiety or depression.. Physical Exam Physical Exam: The patient appeared well nourished and normally developed. Vital signs as documented. Head exam is normocephalic atraumatic Neck is without JVD, thyromegaly, or carotid bruits. Lungs are diminished throughout basilar rales Cardiac exam, Rhythm is regular.. No murmurs, rubs or gallops. Abdominal exam reveals normal bowel sounds, soft non tender, no masses Extremities are trace edematous b/l and both pedal pulses are present Neurologic exam is alert and oriented, no focal loss of strength or sensation Skin is without bruises or rashes Psychologically is without concerns for anxiety or depression Results & Data Results & Data ([facility]) Vital Signs (Past 12 Hours) Vital Signs Temp Pulse Resp BP Pulse Ox 06/30/21 15:55 88 20 94 06/30/21 14:42 98.6 F 59 L 18 111/59 L 94 06/30/21 10:55 71 18 94 06/30/21 08:14 99.0 F 75 20 135/81 95 06/30/21 07:21 69 18 96 PG Care Time/CCT Total # of Minutes Spent Total Time Spent with Patient: Total time spent is greater than 50% in coordination of care (as documented) at patient's floor/unit and/or counseling patient: Coding Level of Care Code 52624 Subseq Hosp Care Lvl 2 Diagnoses COVID-19 U07.1 COPD (chronic obstructive pulmonary disease) J44.9 COPD type: unspecified COPD CAD (coronary artery disease) I25.10 Associated angina: without angina Coronary Disease-Associated Artery/Lesion type: [place] artery [place] vs. transplanted heart: [place] heart Controlled type 2 diabetes mellitus with complication E11.8 Chronic kidney disease N18.9 Chronic kidney disease stage: unspecified stage Normocytic anemia D64.9 GERD (gastroesophageal reflux disease) K21.9 Esophagitis presence: without esophagitis Depression F32.9 Depression Type: unspecified CKD (chronic kidney disease) stage 4, GFR 15-29 ml/min N18.4 (1) CAD (coronary artery disease) Associated angina: without angina Coronary Disease-Associated Artery/Lesion type: [place] artery [place] vs. transplanted heart: [place] heart Qualified Code(s): I25.10 - Atherosclerotic heart disease of [place] coronary artery without angina pectoris (2) Depression Depression Type: unspecified Qualified Code(s): F32.9 - Major depressive disorder, single episode, unspecified (3) Chronic kidney disease Chronic kidney disease stage: unspecified stage Qualified Code(s): N18.9 - Chronic kidney disease, unspecified (4) COPD (chronic obstructive pulmonary disease) COPD type: unspecified COPD Qualified Code(s): J44.9 - Chronic obstructive pulmonary disease, unspecified (5) GERD (gastroesophageal reflux disease) Esophagitis presence: without esophagitis Qualified Code(s): K21.9 - Gastro- esophageal reflux disease without esophagitis
[2021-06-30] MEDS: INSULIN GLARGINE SOLOSTAR 100 UNITS/ML 3 ML PEN SC SCH (20:58)
[2021-06-30] MEDS: ATORVASTATIN 40 MG TAB PO SCH (20:59)
[2021-06-30] MEDS: ASPIRIN 81 MG ECTAB PO SCH (20:59)
[2021-07-01] MEDS: HEPARIN SOD 5,000 UNIT/0.5 ML VIAL SQ SCH ×3 (06:21→20:31)
[2021-07-01 06:31] LABS: Hematocrit (blood only) 43.5 % (42-52); Hemoglobin 13.3 g/dL (14.0-18.0); Mean Corpuscular Hemoglobin 27.1 pg (25-34); Mean Corpuscular Hgb Conc 30.6 g/dL (32-36); Mean Corpuscular Volume 88.8 fL (80-100); Mean Platelet Volume 9.7 fL (7.4-10.4); Platelet Count 162 K/uL (130-400); RDW Coefficient of Variation 17.8 % (11.5-14.5); White Blood Count 6.46 K/uL (4.8-10.8)
[2021-07-01] MEDS: ALBUT/IPRATROP 3MG/0.5MG NEB 3 ML VIAL NEB SCH ×4 (07:52→19:30)
[2021-07-01] MEDS: FINASTERIDE 5 MG TAB PO SCH (08:52)
[2021-07-01] MEDS: dexAMETHasone 6 MG in SYRINGE 0 ML IV SCH (08:52)
[2021-07-01] MEDS: METOPROLOL TARTRATE 100 MG TAB PO SCH ×2 (08:52→20:28)
[2021-07-01] MEDS: buPROPion SR 150 MG TABCR PO SCH ×2 (08:53→20:30)
[2021-07-01] MEDS: POTASSIUM CITRATE 10 MEQ TAB PO SCH ×2 (08:53→20:28)
[2021-07-01] MEDS: CLOPIDOGREL BISULFATE 75 MG TAB PO SCH (08:53)
[2021-07-01] MEDS: guaiFENesin 600 MG TABCR PO SCH ×2 (08:53→21:13)
[2021-07-01] MEDS: GABAPENTIN 300 MG CAP PO SCH ×2 (08:53→20:28)
[2021-07-01] MEDS: INSULIN ASPART 100 UNITS/ML 3 ML PEN SC SCH ×4 (09:08→21:00)
[2021-07-01] MEDS: INSULIN HUMAN NPH SC SCH (09:09)
--- NOTE | 2021-07-01 09:14 | Hospitalist Progress Note ---
Date of Service July 01, 2021 Assessment & Plan (1) COVID-19: Plan: Mr. Stephenson is a 70 yo gentleman with multiple medical comorbidities who is being admitted for hypoxia associated with acute COVID 19 infection. -Acute on chronic respiratory failure with hypoxia, secondary to Covid pneumonia, CXR consistent in appearance with viral PNA - O2 sat < 94 qualifies him as having severe disease -normal Ddimer, LDH , ESR 79 /CRP 3.19 , ferritin - symptoms began on 06/23/21 - placing him within the 10 day window to qualify for Remdesivir, - start IVF and repeat BMP in AM --> GFR improve to > 30, did start remdesivir 06/28/21 - Decadron 6mg IV daily - Azithromycin - Duo Nebs QID - Mucinex - pt has returned to baseline, (2) COPD (chronic obstructive pulmonary disease): Plan: - continue home inhaler regimen (Breo and Spirivia) - scheduled duo nebs as above - azithromycin as above chronic home oxygen makes him have respiratory insufficiency at this time (3) CAD (coronary artery disease): Plan: - continue home ASA/plavix, lipitor, metoprolol (4) Controlled type 2 diabetes mellitus with complication: Plan: - A1c 7.9 from 06/22/21 - complicated by neuropathy, nephropathy and gastroparesis - blood sugar checks - continue home basal insulin + SSI - continue high dose statin and ASA - suspect patient is not on CAR/ARB due to underlying CKD - carb consistent diet - continue home dose gabapentin for neuropathy (5) Chronic kidney disease: Plan: - Cr at 2.17, near baseline - GFR at 30 - renally dose meds as appropriate (6) Normocytic anemia: Plan: - Hgb 12.8, near baseline - MCV 89 - suspect anemia due to underlying kidney disease (7) GERD (gastroesophageal reflux disease): Plan: - continue home dose protonix (8) Depression: Plan: - continue home dose bupropion DVT ppx: Renally dosed unfractionated heparin SQ 7500 units q8 (covid protocol) Diet: Carb consistent, heart healthy Code: Full, discussed with patient (9) CKD (chronic kidney disease) stage 4, GFR 15-29 ml/min: Plan: rehab recommended by PT, will need to reassess Admission and Anticipated Discharge Date Admission Date: June 27, 2021 Subjective Pts respiratory status is much improved, pt states he physically is getting stronger Review of Systems Review of Systems: Mild distress and fatigue no headache, no visual changes no speech or swallowing issues no chest pain, pressure or palpitations Persistent shortness of breath, but seems at baseline no abdominal pain, nausea or vomiting, diarrhea or constipation no dysuria, hematuria or frequency no focal joint pain or swelling no back pain, CVA tenderness or radicular pain no bruising, bleeding or rashes no focal signs of weakness but overall is very weak no complaints of anxiety or depression.. Physical Exam Physical Exam: The patient appeared well nourished and normally developed. Vital signs as documented. Head exam is normocephalic atraumatic Neck is without JVD, thyromegaly, or carotid bruits. Lungs are diminished throughout basilar rales Cardiac exam, Rhythm is regular.. No murmurs, rubs or gallops. Abdominal exam reveals normal bowel sounds, soft non tender, no masses Extremities are trace edematous b/l and both pedal pulses are present Neurologic exam is alert and oriented, no focal loss of strength or sensation Skin is without bruises or rashes Psychologically is without concerns for anxiety or depression Results & Data Results & Data ([facility]) Vital Signs (Past 12 Hours) Vital Signs Temp Pulse Resp BP Pulse Ox Pulse Ox 07/01/21 08:06 98.2 F 67 22 127/84 92 07/01/21 07:52 64 20 92 07/01/21 05:28 95 07/01/21 00:00 97 PG Care Time/CCT Total # of Minutes Spent Total Time Spent with Patient: Total time spent is greater than 50% in coordination of care (as documented) at patient's floor/unit and/or counseling patient: Coding Level of Care Code 21255 Subseq Hosp Care Lvl 2 Diagnoses COVID-19 U07.1 COPD (chronic obstructive pulmonary disease) J44.9 COPD type: unspecified COPD CAD (coronary artery disease) I25.10 Associated angina: without angina Coronary Disease-Associated Artery/Lesion type: [place] artery [place] vs. transplanted heart: [place] heart Controlled type 2 diabetes mellitus with complication E11.8 Chronic kidney disease N18.9 Chronic kidney disease stage: unspecified stage Normocytic anemia D64.9 GERD (gastroesophageal reflux disease) K21.9 Esophagitis presence: without esophagitis Depression F32.9 Depression Type: unspecified CKD (chronic kidney disease) stage 4, GFR 15-29 ml/min N18.4 (1) CAD (coronary artery disease) Associated angina: without angina Coronary Disease-Associated Artery/Lesion type: [place] artery [place] vs. transplanted heart: [place] heart Qualified Code(s): I25.10 - Atherosclerotic heart disease of [place] coronary artery without angina pectoris (2) Depression Depression Type: unspecified Qualified Code(s): F32.9 - Major depressive disorder, single episode, unspecified (3) Chronic kidney disease Chronic kidney disease stage: unspecified stage Qualified Code(s): N18.9 - Chronic kidney disease, unspecified (4) COPD (chronic obstructive pulmonary disease) COPD type: unspecified COPD Qualified Code(s): J44.9 - Chronic obstructive pulmonary disease, unspecified (5) GERD (gastroesophageal reflux disease) Esophagitis presence: without esophagitis Qualified Code(s): K21.9 - Gastro- esophageal reflux disease without esophagitis
[2021-07-01 11:07] LABS: Appearance Urine Clear (Clear); Bacteria Urine Automated Negative (Negative); Bilirubin Urine Negative (Negative); Blood Urine 3+ (Negative); Color Urine Yellow; Glucose Urine UA Negative (Negative); Ketones Urine Negative (Negative); Leukocyte Esterase Urine Negative (Negative); Nitrite Urine Negative (Negative); Protein Urine 1+ (Negative); Specific Gravity Urine 1.022 (1.000-1.030); Urobilinogen Urine Negative (Negative)
--- NOTE | 2021-07-01 12:05 | Pharmacy Report ---
Pharmacy Glycemic Short Note 2 - Date of Service July 01, 2021 - Glycemic Short BSG Results (Last 24 hours): 06/30/21 06/30/21 06/30/21 12:06 17:20 20:51 POC Glucose 152 H 169 H 99 07/01/21 08:16 POC Glucose 84 OUTPATIENT ANTIDIABETIC REGIMEN: * Tresiba 45 units SC HS * Novolog SSI * Trulicity qMonday * HbA1c 7.9% on 06/22/21 ASSESSMENT: 07/01 * Adonis received 49 units of insulin yesterday (25 units NPH and 24 units bolus) * Despite holding Lantus the past 48 hours, fasting BSG continues to trend downward. Will decrease NPH starting tomorrow. * Patient remains on dexamethasone IV. Post prandial BSGs are well controlled. 06/29 * Stressors stable * AM fasting BSG decreased from 174 mg/dL yesterday to 90 mg/dL today. Larger Lantus dose on 06/28 *AM* likely contributing. Will continue with same NPH dose and PM Lantus dose. * Post-prandial BSG's elevated x2 yesterday. May require tightening on CHO ratio. Will determine need to do so based on breakfast to lunch trend today 06/28 * 70 yo M with T2DM admitted with COVID-19 and started on dexamethasone daily * Recent admission 3 months ago with very minimal insulin required as an inpatient and decent BSG control, although he was not on steroids at that time * Will initiate severe stress estimate of Novolog based on steroids * Will initiate NPH to help with post-prandial spikes from steroids. Will also continue HS long-acting insulin per outpatient schedule, but will be significantly less aggressive than his outpatient regimen 2nd recent admission data and addition of NPH PLAN FOR INPATIENT GLYCEMIC CONTROL: * Hold outpatient diabetes medications * Basal insulin - decrease * NPH 25 units SQ this AM, decrease to 20 units qAM tomorrow - NPH to be give n while on dexamethasone * Bolus insulin * NovoLog per scale ACHS or Q6hrs while NPO * Goal Range: Low 110 mg/dL - High 140 mg/dL * Correction Factor: 15 mg/dL/unit * Nutritional / Prandial insulin per carb ratio of 1 unit per 3 grams CHO consumed PLAN FOR DISCHARGE: * A1c = 7.9% * Basal insulin requirements have been significantly less compared to home usage (even with IV steroids on board). Re-evaluate home regimen closer to time of discharge.
[2021-07-01] MEDS: REMDESIVIR 100 MG in SODIUM CHLORIDE 0.9% 230 ML IV SCH (12:06)
[2021-07-01] MEDS: SODIUM CHLORIDE 0.9% 10ML FLUSH IV SCH (13:37)
[2021-07-01] MEDS: ASPIRIN 81 MG ECTAB PO SCH (20:29)
[2021-07-01] MEDS: ATORVASTATIN 40 MG TAB PO SCH (21:12)
[2021-07-02] MEDS: HEPARIN SOD 5,000 UNIT/0.5 ML VIAL SQ SCH ×3 (05:56→20:25)
[2021-07-02] MEDS: ALBUT/IPRATROP 3MG/0.5MG NEB 3 ML VIAL NEB SCH ×4 (06:11→18:12)
[2021-07-02] MEDS: FINASTERIDE 5 MG TAB PO SCH (08:28)
[2021-07-02] MEDS: GABAPENTIN 300 MG CAP PO SCH ×2 (08:29→20:21)
[2021-07-02] MEDS: METOPROLOL TARTRATE 100 MG TAB PO SCH ×2 (08:29→20:21)
[2021-07-02] MEDS: POTASSIUM CITRATE 10 MEQ TAB PO SCH ×2 (08:29→20:23)
[2021-07-02] MEDS: buPROPion SR 150 MG TABCR PO SCH ×2 (08:30→20:22)
[2021-07-02] MEDS: CLOPIDOGREL BISULFATE 75 MG TAB PO SCH (08:30)
[2021-07-02] MEDS: predniSONE 20 MG TAB PO SCH (08:30)
[2021-07-02] MEDS ORDERED: INSULIN HUMAN NPH SC SCH ×2 (09:00)
--- NOTE | 2021-07-02 09:00 | Pharmacy Report ---
Pharmacy Glycemic Short Note 2 - Date of Service July 02, 2021 - Glycemic Short BSG Results (Last 24 hours): 07/01/21 07/01/21 07/01/21 12:00 17:19 20:25 POC Glucose 160 H 165 H 132 H 07/02/21 08:16 POC Glucose 89 OUTPATIENT ANTIDIABETIC REGIMEN: * Tresiba 45 units SC HS * Novolog SSI * Trulicity qMonday * HbA1c 7.9% on 06/22/21 ASSESSMENT: 07/02 * Patient received total of 62 units of insulin yesterday, of which 25 units were NPH to cover Dex 6 mg IV * Fasting BSG 89 mg/dL - steroids changed to prednisone 20 mg daily / estimated insulin needs will be much less. Plan to cut back NPH by ~30%, will also loosen CF/CR to account for decrease in steroids 07/01 * Adonis received 49 units of insulin yesterday (25 units NPH and 24 units bolus) * Despite holding Lantus the past 48 hours, fasting BSG continues to trend downward. Will decrease NPH starting tomorrow. * Patient remains on dexamethasone IV. Post prandial BSGs are well controlled. 06/29 * Stressors stable * AM fasting BSG decreased from 174 mg/dL yesterday to 90 mg/dL today. Larger Lantus dose on 06/28 *AM* likely contributing. Will continue with same NPH dose and PM Lantus dose. * Post-prandial BSG's elevated x2 yesterday. May require tightening on CHO ratio. Will determine need to do so based on breakfast to lunch trend today 06/28 * 70 yo M with T2DM admitted with COVID-19 and started on dexamethasone daily * Recent admission 3 months ago with very minimal insulin required as an inpatient and decent BSG control, although he was not on steroids at that time * Will initiate severe stress estimate of Novolog based on steroids * Will initiate NPH to help with post-prandial spikes from steroids. Will also continue HS long-acting insulin per outpatient schedule, but will be significantly less aggressive than his outpatient regimen 2nd recent admission data and addition of NPH PLAN FOR INPATIENT GLYCEMIC CONTROL: * Hold outpatient diabetes medications * Basal insulin - decrease * NPH 18 units Qam - give with prednisone 20 mg daily * Bolus insulin - loosen * NovoLog per scale ACHS or Q6hrs while NPO * Goal Range: Low 110 mg/dL - High 140 mg/dL * Correction Factor: 20 mg/dL/unit * Nutritional / Prandial insulin per carb ratio of 1 unit per 5 grams CHO consumed PLAN FOR DISCHARGE: * A1c = 7.9% * Basal insulin requirements have been significantly less compared to home usage (even with IV steroids on board). Re-evaluate home regimen closer to time of discharge.
[2021-07-02] MEDS: INSULIN ASPART 100 UNITS/ML 3 ML PEN SC SCH ×4 (09:19→20:51)
[2021-07-02] MEDS: INSULIN HUMAN NPH SC SCH (09:20)
[2021-07-02] MEDS: guaiFENesin 600 MG TABCR PO SCH ×2 (09:30→20:20)
[2021-07-02] MEDS: REMDESIVIR 100 MG in SODIUM CHLORIDE 0.9% 230 ML IV SCH (11:53)
[2021-07-02] MEDS: SODIUM CHLORIDE 0.9% 10ML FLUSH IV SCH (13:55)
--- NOTE | 2021-07-02 18:26 | Hospitalist Progress Note ---
Date of Service July 02, 2021 Assessment & Plan (1) COVID-19: Plan: Mr. Stephenson is a 70 yo gentleman with multiple medical comorbidities who is being admitted for hypoxia associated with acute COVID 19 infection. -Acute on chronic respiratory failure with hypoxia, secondary to Covid pneumonia, CXR consistent in appearance with viral PNA - O2 sat < 94 qualifies him as having severe disease -normal Ddimer, LDH , ESR 79 /CRP 3.19 , ferritin - symptoms began on 06/23/21 - placing him within the 10 day window to qualify for Remdesivir, -> GFR improve on ivf to > 30, did start remdesivir 06/28/21 - Decadron 6mg IV daily - Azithromycin - Duo Nebs QID - Mucinex - pt has returned to baseline with regard to his respiratory status, (2) COPD (chronic obstructive pulmonary disease): Plan: - continue home inhaler regimen (Breo and Spirivia) - scheduled duo nebs as above - azithromycin as above chronic home oxygen makes him have respiratory insufficiency at this time (3) CAD (coronary artery disease): Plan: - continue home ASA/plavix, lipitor, metoprolol (4) Controlled type 2 diabetes mellitus with complication: Plan: - A1c 7.9 from 06/22/21 - complicated by neuropathy, nephropathy and gastroparesis - blood sugar checks - continue home basal insulin + SSI - continue high dose statin and ASA - suspect patient is not on CAR/ARB due to underlying CKD - carb consistent diet - continue home dose gabapentin for neuropathy (5) Chronic kidney disease: Plan: - Cr at 2.17, near baseline - GFR at 30 - renally dose meds as appropriate (6) Normocytic anemia: Plan: - Hgb 12.8, near baseline - MCV 89 - suspect anemia due to underlying kidney disease (7) GERD (gastroesophageal reflux disease): Plan: - continue home dose protonix (8) Depression: Plan: - continue home dose bupropion DVT ppx: Renally dosed unfractionated heparin SQ 7500 units q8 (covid protocol) Diet: Carb consistent, heart healthy Code: Full, discussed with patient (9) CKD (chronic kidney disease) stage 4, GFR 15-29 ml/min: Plan: rehab recommended by PT, will continue to reassess Admission and Anticipated Discharge Date Admission Date: June 27, 2021 Subjective Pts respiratory status continues to improved, pt states he physically is getting stronger and continues to want to go home and not to rehab Review of Systems Review of Systems: Mild distress and fatigue no headache, no visual changes no speech or swallowing issues no chest pain, pressure or palpitations Persistent shortness of breath, but seems at baseline no abdominal pain, nausea or vomiting, diarrhea or constipation no dysuria, hematuria or frequency no focal joint pain or swelling no back pain, CVA tenderness or radicular pain no bruising, bleeding or rashes no focal signs of weakness but overall is very weak no complaints of anxiety or depression.. Physical Exam Physical Exam: The patient appeared well nourished and normally developed. Vital signs as documented. Head exam is normocephalic atraumatic Neck is without JVD, thyromegaly, or carotid bruits. Lungs are diminished throughout basilar rales Cardiac exam, Rhythm is regular.. No murmurs, rubs or gallops. Abdominal exam reveals normal bowel sounds, soft non tender, no masses Extremities are trace edematous b/l and both pedal pulses are present Neurologic exam is alert and oriented, no focal loss of strength or sensation Skin is without bruises or rashes Psychologically is without concerns for anxiety or depression Results & Data Results & Data ([facility]) Vital Signs (Past 12 Hours) Vital Signs Temp Pulse Resp BP BP Pulse Ox 07/02/21 18:12 70 20 94 07/02/21 16:04 98.8 F 71 18 121/78 94 07/02/21 15:04 69 18 94 07/02/21 10:13 67 18 94 07/02/21 07:11 97.7 F 65 18 120/73 93 PG Care Time/CCT Total # of Minutes Spent Total Time Spent with Patient: Total time spent is greater than 50% in coordination of care (as documented) at patient's floor/unit and/or counseling patient: Coding Level of Care Code 09115 Subseq Hosp Care Lvl 1 Diagnoses COVID-19 U07.1 COPD (chronic obstructive pulmonary disease) J44.9 COPD type: unspecified COPD CAD (coronary artery disease) I25.10 Coronary Disease-Associated Artery/Lesion type: [place] artery [place] vs. transplanted heart: [place] heart Associated angina: without angina Controlled type 2 diabetes mellitus with complication E11.8 Chronic kidney disease N18.9 Chronic kidney disease stage: unspecified stage Normocytic anemia D64.9 GERD (gastroesophageal reflux disease) K21.9 Esophagitis presence: without esophagitis Depression F32.9 Depression Type: unspecified CKD (chronic kidney disease) stage 4, GFR 15-29 ml/min N18.4 (1) COPD (chronic obstructive pulmonary disease) COPD type: unspecified COPD Qualified Code(s): J44.9 - Chronic obstructive pulmonary disease, unspecified (2) CAD (coronary artery disease) Coronary Disease-Associated Artery/Lesion type: [place] artery [place] vs. transplanted heart: [place] heart Associated angina: without angina Qualified Code(s): I25.10 - Atherosclerotic heart disease of [place] coronary artery without angina pectoris (3) Chronic kidney disease Chronic kidney disease stage: unspecified stage Qualified Code(s): N18.9 - Chronic kidney disease, unspecified (4) GERD (gastroesophageal reflux disease) Esophagitis presence: without esophagitis Qualified Code(s): K21.9 - Gastro- esophageal reflux disease without esophagitis (5) Depression Depression Type: unspecified Qualified Code(s): F32.9 - Major depressive disorder, single episode, unspecified
[2021-07-02] MEDS ORDERED: SENNA 8.6 MG TAB PO ONE (18:27)
[2021-07-02] MEDS: ASPIRIN 81 MG ECTAB PO SCH (20:20)
[2021-07-02] MEDS: ATORVASTATIN 40 MG TAB PO SCH (20:22)
[2021-07-03] MEDS: HEPARIN SOD 5,000 UNIT/0.5 ML VIAL SQ SCH ×2 (05:44→13:04)
[2021-07-03] MEDS: ALBUT/IPRATROP 3MG/0.5MG NEB 3 ML VIAL NEB SCH (06:07)
[2021-07-03] MEDS ORDERED: SENNA 8.6 MG TAB PO SCH (09:00)
[2021-07-03] MEDS: INSULIN ASPART 100 UNITS/ML 3 ML PEN SC SCH ×2 (09:28→13:03)
[2021-07-03] MEDS: INSULIN HUMAN NPH SC SCH (09:30)
[2021-07-03] MEDS: POTASSIUM CITRATE 10 MEQ TAB PO SCH (09:31)
[2021-07-03] MEDS: FINASTERIDE 5 MG TAB PO SCH (09:31)
[2021-07-03] MEDS: CLOPIDOGREL BISULFATE 75 MG TAB PO SCH (09:31)
[2021-07-03] MEDS: buPROPion SR 150 MG TABCR PO SCH (09:31)
[2021-07-03] MEDS: guaiFENesin 600 MG TABCR PO SCH (09:31)
[2021-07-03] MEDS: METOPROLOL TARTRATE 100 MG TAB PO SCH (09:31)
[2021-07-03] MEDS: GABAPENTIN 300 MG CAP PO SCH (09:31)
[2021-07-03] MEDS: predniSONE 20 MG TAB PO SCH (09:32)
[2021-07-03] MEDS ORDERED: ALBUT/IPRATROP 3MG/0.5MG NEB 3 ML VIAL NEB PRN (09:35)
--- NOTE | 2021-07-03 14:52 | Discharge Summary ---
Date of Service July 03, 2021 Admission HPI Per Admitting Provider Mr. Stephenson is a 70 yo male with a PMHx of COPD, type II diabetes and CKD who came in for evaluation of shortness of breath, fever and congestion. Symptoms began Monday06/23/21. He is on baseline oxygen of 2L via NC at night at home for his COPD, but due to this dyspnea, he has been using supplemental O2 during the day as well. He has been diagnosed with SREEKANTH but cannot tolerate a CPAP. He denies any chest pain, abdominal pain, dizziness, nausea/vomiting, or diarrhea. Has not lost sense of taste or smell. He denies any known sick contacts. He was fully vaccinated against COVID 19 in November 2020. Social Hx: Former smoker; he quit in 2017 but smoked 1ppd for 48 years In the ED, he was febrile with normal HR and BP. His O2 sat was 89% on room air, but improved to 98% on 4L via NC. He was COVID 19 positive. His WBC was normal but he did have lymphopenia. His Hgb was mildly low at 12.6, MCV at 89. VBG was obtained showing a pH of 7.42, with a bicarb of 28. His creatinine was 2.38. CMP was otherwise unremarkable. UA ordered. Trop undetectable. CXR showed diffuse bilateral airspace opacities. He was given 1 duoneb. Principal Diagnosis acute on chronic respiratory failure with hypoxia covid pneumonia Discharge Exam The patient appeared stable states he is back in his usual condition was able to get out of bed with a walker today Vital signs as documented. Lungs are poor air movement with no wheezes no rales Cardiac exam, Rhythm is regular.. Systolic ejection murmur Extremities are trace edematous and both pedal pulses are normal. Neurologic exam is alert and oriented, Discharge Data Allergies Allergy/AdvReac Type Severity Reaction Status Date / Time azithromycin Allergy Mild diarrhea Verified 06/27/21 23:03 Consultations 06/27/21 22:46 ED Decision to Admit Stat 07/03/21 12:05 Consult [employer] storage battery tester Routine Ordered Studies Chest X-Ray 06/27/21 18:45 XR chest 1V portable CLINICAL HISTORY: Fever. COMPARISON STUDY: Chest CT November 16, 2020. Chest radiograph March 28, 2021. FINDINGS: Patient is rotated. No pneumothorax or pleural effusion is present. Cardiomediastinal silhouette is stable. There is mild right lower lung interstitial thickening, similar to prior exams. Left mid lung interstitial thickening is likely chronic. Hazy left basilar opacity is unchanged. There is no lobar consolidation. IMPRESSION: No acute findings. No significant change in appearance of the chest Electronically signed by: Mike De Dios M.D. 06/28/2021 8:18 AM Hospital Course (1) COVID-19: Mr. Stephenson is a 70 yo gentleman with multiple medical comorbidities who is being admitted for hypoxia associated with acute COVID 19 infection. -Acute on chronic respiratory failure with hypoxia, secondary to Covid pneumonia, CXR consistent in appearance with viral PNA - O2 sat < 94 qualifies him as having severe disease -normal Ddimer, LDH , ESR 79 /CRP 3.19 , ferritin - symptoms began on 06/23/21 - placing him within the 10 day window to qualify for Remdesivir, -> GFR improve on ivf to > 30, did start remdesivir 06/28/21 - pt has returned to baseline with regard to his respiratory status, (2) COPD (chronic obstructive pulmonary disease): - continue home inhaler regimen (Breo and Spirivia) - scheduled duo nebs as above - azithromycin as above chronic home oxygen makes him have respiratory insufficiency at this time Course of home prednisone therapy (3) CAD (coronary artery disease): - continue home ASA/plavix, lipitor, metoprolol (4) Controlled type 2 diabetes mellitus with complication: - A1c 7.9 from 06/22/21 - complicated by neuropathy, nephropathy and gastroparesis - blood sugar checks - continue home insulin - continue high dose statin and ASA - suspect patient is not on CAR/ARB due to underlying CKD - continue home dose gabapentin for neuropathy (5) Chronic kidney disease: - stage 4, Cr at 2.17, near baseline - GFR at 30 - renally dose meds as appropriate (6) Normocytic anemia: - Hgb 12.8, near baseline - MCV 89 - suspect anemia due to underlying kidney disease (7) GERD (gastroesophageal reflux disease): - continue home dose protonix (8) Depression: - continue home dose bupropion Code: Full, discussed with patient (9) CKD (chronic kidney disease) stage 4, GFR 15-29 ml/min: rehab recommended by PT, will continue to reassess Total Time Total Time Spent Total Time Spent (In Minutes): It required greater than 30 minutes to prepare this patient for discharge Discharge Plan Discharge Items Patient Disposition: Home - Self-Care Reason For Visit: COVID HYPOXIC Discharge Diagnosis: acute on chronic respiratory failure with hypoxia covid pneumonia baseline weakness and need for walker Activity: Resume your previous activity Activity Comment: use walker when getting around Non-emergency contact: Primary Care Provider Call non-emergency contact if: your symptoms worsen and you have a fever Follow-up/Referrals: Salas Valente, [Primary Care Provider] - Diet: Carb Consistent or DM2 Addtl Attending Provider Instructions: you should be out of quarantine but still consider wearing a mask around people who have not had a covid infection please use a walker when moving around you home or when out in the community wear a mask when out in the community wear you oxygen at all times follow up with your family doctor this week likely by phone so check with office first The following information about covid is from the CDC Website: https://www.cdc.gov/coronavirus/2019-ncov/hcp/dbldrxxk-jxkcuwo-xpftjp.html Stay home except to get medical care People who are mildly ill with COVID-19 are able to isolate at home during their illness. You should restrict activities outside your home, except for getting medical care. Do not go to work, school, or public areas. Avoid using public transportation, ride-sharing, or taxis. Separate yourself from other people and animals in your home People: As much as possible, you should stay in a specific room and away from other people in your home. Also, you should use a separate bathroom, if available. Animals: You should restrict contact with pets and other animals while you are sick with COVID-19, just like you would around other people. Although there have not been reports of pets or other animals becoming sick with COVID-19, it is still recommended that people sick with COVID-19 limit contact with animals until more information is known about the virus. When possible, have another member of your household care for your animals while you are sick. If you are sick with COVID-19, avoid contact with your pet, including petting, snuggling, being kissed or licked, and sharing food. If you must care for your pet or be around animals while you are sick, wash your hands before and after you interact with pets and wear a face mask. Call ahead before visiting your doctor If you have a medical appointment, call the healthcare provider and tell them that you have or may have COVID-19. This will help the healthcare providers office take steps to keep other people from getting infected or exposed. Wear a face mask You should wear a face mask when you are around other people (e.g., sharing a room or vehicle) or pets and before you enter a healthcare providers office. If you are not able to wear a face mask (for example, because it causes trouble breathing), then people who live with you should not stay in the same room with you, or they should wear a face mask if they enter your room. Cover your coughs and sneezes Cover your mouth and nose with a tissue when you cough or sneeze. Throw used tissues in a lined trash can. Immediately wash your hands with soap and water for at least 20 seconds or, if soap and water are not available, clean your hands with an alcohol-based hand gut puller that contains at least 60% alcohol. Clean your hands often Wash your hands often with soap and water for at least 20 seconds, especially after blowing your nose, coughing, or sneezing; going to the bathroom; and before eating or preparing food. If soap and water are not readily available, use an alcohol-based hand gut puller with at least 60% alcohol, covering all surfaces of your hands and rubbing them together until they feel dry. Soap and water are the best option if hands are visibly dirty. Avoid touching your eyes, nose, and mouth with unwashed hands. Avoid sharing personal household items You should not share dishes, drinking glasses, cups, eating utensils, towels, or bedding with other people or pets in your home. After using these items, they should be washed thoroughly with soap and water. Clean all high-touch surfaces everyday High touch surfaces include counters, tabletops, doorknobs, bathroom fixtures, toilets, phones, keyboards, tablets, and bedside tables. Also, clean any surfaces that may have blood, stool, or body fluids on them. Use a household cleaning spray or wipe, according to the label instructions. Labels contain instructions for safe and effective use of the cleaning product including precautions you should take when applying the product, such as wearing gloves and making sure you have good ventilation during use of the product. Monitor your symptoms Seek prompt medical attention if your illness is worsening (e.g., difficulty breathing).Beforeseeking care, call your healthcare provider and tell them that you have, or are being evaluated for, COVID-19. Put on a face mask before you enter the facility. These steps will help the healthcare providers office to keep other people in the office or waiting room from getting infected or exposed. Ask your healthcare provider to call the local or [facility]. Persons who are placed under active monitoring or facilitated self- monitoring should follow instructions provided by their local health department or occupational health professionals, as appropriate. When working with your local health department check their available hours. If you have a medical emergency and need to call 911, notify the dispatch personnel that you have, or are being evaluated for COVID-19. If possible, put on a face mask before emergency medical services arrive. Pending Studies at Discharge: No Stand-Alone Forms: My [facility], Smoking Cessation Medications and DC Order Prescriptions: New prednisone 10 mg tablet 10 mg PO DAILY Qty: 10 RF: 0 Continued (DME) lancets [OneTouch Delica Lancets] 33 gauge misc See Dose Instructions .ROUTE .MEDSUPPLY Qty: 100 RF: 3 (DME) Hospital Bed Misc See Rx Instructions .ROUTE .MEDSUPPLY Qty: 1 RF: 0 gabapentin 300 mg capsule 300 mg PO BID Qty: 180 RF: 3 metoprolol tartrate [Lopressor] 100 mg tablet 100 mg PO BID Qty: 180 RF: 3 trospium 60 mg capsule,extended release 24hr 60 mg PO QAM Qty: 90 RF: 3 insulin aspart U-100 [Novolog Flexpen U-100 Insulin] 100 unit/mL (3 mL) insulin pen See Rx Instructions subcut DAILY Qty: 15 RF: 5 (DME) pen needle, diabetic [BD Ultra-Fine Mini Pen Needle] 31 gauge x 3/16" needle See Rx Instructions .ROUTE .MEDSUPPLY Qty: 400 RF: 3 clopidogrel 75 mg tablet 75 mg PO QAM Qty: 90 RF: 3 (DME) True Metrix Glucose Test Strip Strip See Rx Instructions .ROUTE .MEDSUPPLY Qty: 100 RF: 5 bupropion HCl 150 mg tablet sustained-release 12 hr 150 mg PO BID 90 Days Qty: 180 RF: 3 pantoprazole [Protonix] 40 mg tablet,delayed release (DR/EC) 40 mg PO DAILY PRN (Reason: GERD) Qty: 90 RF: 3 Trulicity 1.5 mg/0.5 mL pen injector 1.5 mg SQ WK Qty: 6 RF: 3 (DME) blood-glucose meter [True Metrix Glucose Meter] Misc See Rx Instructions .ROUTE .MEDSUPPLY Qty: 1 RF: 0 nystatin 100,000 unit/gram cream 1 applic topical BID PRN (Reason: rash) Qty: 30 RF: 11 (DME) FreeStyle Nidia 2 Sensor Kit See Rx Instructions .ROUTE .MEDSUPPLY Qty: 1 RF: 0 (DME) FreeStyle Nidia 2 [place] Misc See Rx Instructions .ROUTE .MEDSUPPLY Qty: 1 RF: 0 potassium citrate 15 mEq tablet extended release 15 meq PO BID Qty: 180 RF: 11 atorvastatin [Lipitor] 40 mg tablet 40 mg PO HS Qty: 30 RF: 11 finasteride [Proscar] 5 mg tablet 5 mg PO QAM Qty: 90 RF: 3 menthol-zinc oxide [Calmoseptine] 0.44-20.6 % ointment 1 applic topical QID PRN (Reason: skin irritation) Qty: 113 RF: 3 cholecalciferol (vitamin D3) [Vitamin D3] 1,000 unit Tablet 1,000 unit PO BID RF: 0 acetaminophen 325 mg tablet 650 mg PO TID PRN (Reason: Pain) RF: 0 aspirin 81 mg Tablet,Delayed Release (Dr/Ec) 81 mg PO QPM RF: 0 furosemide 20 mg tablet 20 mg PO DAILY PRN (Reason: Edema) RF: 0 Tresiba FlexTouch U-200 200 unit/mL (3 mL) insulin pen 45 unit subcut HS RF: 0 Breo Ellipta 200-25 mcg/dose blister with device 1 inh inhalation DAILY PRN (Reason: Shortness Of Breath) RF: 0 ipratropium-albuterol 0.5 mg-3 mg(2.5 mg base)/3 mL solution for nebulization 3 ml inhalation Q4 PRN (Reason: wheezing) RF: 0 albuterol sulfate 0.63 mg/3 mL solution for nebulization 0.63 mg continuous nebulization QID PRN (Reason: Shortness Of Breath Or Wheezing) RF: 0 Discharge Orders: Discharge Order (Routine); Ordered 07/03/21 Ordered By: Jayson Dee/Other Patient Handouts: Disinfecting Your Home of COVID-19, COVID-19 Home Care Admission Data Admit Date/Time: 06/27/21 23:14 Attending Provider: Jayson De La Torre Admit Provider: Alida Trent Primary Care Provider: Salas Valente Other Providers: Yossi Izaguirre ; [facility] Other Interventions: Discharge Summary Assessment (RN) Last Done: 07/03/21 13:24 Coding Level of Care Code D/C DAY MANAGEMENT >30 MINS Diagnoses COVID-19 U07.1 COPD (chronic obstructive pulmonary disease) J44.9 COPD type: unspecified COPD CAD (coronary artery disease) I25.10 Coronary Disease-Associated Artery/Lesion type: [place] artery [place] vs. transplanted heart: [place] heart Associated angina: without angina Controlled type 2 diabetes mellitus with complication E11.8 Chronic kidney disease N18.9 Chronic kidney disease stage: unspecified stage Normocytic anemia D64.9 GERD (gastroesophageal reflux disease) K21.9 Esophagitis presence: without esophagitis Depression F32.9 Depression Type: unspecified CKD (chronic kidney disease) stage 4, GFR 15-29 ml/min N18.4
== END 2021-07-03 14:46 | disposition home or self-care (01) | DRG 177 ==
LOC: ED 18:27 → SUATTDRO 23:14 → 2S 23:14 → 3W 06-29 18:58

== ENCOUNTER 2022-07-01 17:14 | Inpatient (IN) ==
[~2022-07-01 17:14] MED LIST changes: -ALBU1NEB10 INH; -ASPI81TA28 PO; -BRIN1SUS OPL; -BUDE0.5S INH; -CHOL1000 PO; -CPR/500 PO; -DARI15TA PO; -DOCU100T7 PO; -FINA5TAB PO; -FURO-85 PO; -GABA-113 PO; +KETAMINE HCL INJ 50 MG/ML 10 ML VIAL IV ONE; -LPR100 PO; -LSN20 PO; -METF-384 PO; -NTRGSL/4 UT; -PHEN-774 PO; -PLV75 PO; -ROSU40TA PO; +SUCCINYLCHOLINE CHLORIDE 20 MG/ML 10 ML VIAL IV ONE; -URX/10 PO; -WLLSR150 PO
[2022-07-01] MEDS ORDERED: RAPID SEQUENCE INDUCTION BAG ONE (17:20)
[2022-07-01] MEDS ORDERED: PROPOFOL IV EMULSION 10 MG/ML 100 ML VIAL IV ONE (17:39)
[2022-07-01 17:40] LABS: Basophils # (auto) 0.08 K/uL (0-0.2); Basophils % (auto) 0.8 %; Eosinophils # (auto) 0.08 K/uL (0-0.50); Eosinophils % (auto) 0.8 %; Hematocrit (blood only) 49.7 % (40.1-51.0); Hemoglobin 15.3 g/dl (14.0-18.0); Immature Granulocytes # (auto) 0.28 K/uL (0.00-0.02); Immature Granulocytes % (auto) 2.7 %; Lymphocytes % (auto) 6.7 %; Mean Corpuscular Hemoglobin 30.4 pg (25.0-34.0); Mean Corpuscular Hgb Conc 30.8 g/dL (32.0-36.0); Mean Corpuscular Volume 98.8 fL (80.0-100.0); Mean Platelet Volume 9.3 fL (9.4-12.4); Monocytes # (auto) 1.36 K/uL (0.24-0.82); Monocytes % (auto) 12.9 %; Neutrophils # (auto) 8.01 K/uL (1.4-6.5); Neutrophils % (auto) 76.1 %; Nucleated RBC # (auto) 0.02 K/uL (0-0); Nucleated RBC % (auto) 0.2 %; Platelet Count 210 K/uL (130-400); RDW Coefficient of Variation 14.6 % (11.5-14.5); RDW Standard Deviation 52.7 fL (36.4-46.3); Red Blood Count 5.03 M/uL (4.63-6.08); White Blood Count 10.51 K/ul (4.8-10.8)
[2022-07-01] MEDS ORDERED: CEFEPIME 2,000 MG/20 ML VIAL IV STA (17:40)
[2022-07-01] MEDS ORDERED: STAT IV Infusion **Titration per Protocol STA ×2 (17:46→17:57)
--- NOTE | 2022-07-01 17:50 | Emergency Department Note ---
Impression & Plan Respiratory failure, Sepsis, Acidosis, Pneumonia ED Provider Note NAME: ANNA DELGADO AGE: 71 SEX: M : 1950 ARRIVES VIA: Ambulance INFORMANT: Patient, ED PROVIDER(S): Ok Day DO CHIEF COMPLAINT: Shortness of breath and confusion HPI: Patient is a 71-year-old male with a PMHx of COPD, type II diabetes and CKD who presents to the ER for shortness of breath, cough, fever which started 3 to 4 days ago. This has been getting worse. He has oxygen at home but he has not been wearing it until today. He denies any belly pain, nausea, vomiting, or diarrhea. No dysuria, urgency, or frequency. History is limited as he falls asleep after 1 question. ROS: Review of systems is limited secondary to mentation PAST MEDICAL HISTORY:See Below PAST SURGICAL HISTORY:See Below FAMILY HISTORY:See Below SOCIAL HISTORY:See Below HOME MEDICATIONS:See Below ALLERGIES:See Below VITALS:See Below PHYSICAL EXAMINATION: GENERAL: Sitting up in bed, unresponsive but awakens to sternal rub and able to answer questions but falls asleep within 2 to 3 seconds EYE EXAM: normal conjunctiva. PERRL and EOM's grossly intact. OROPHARYNX: no exudate, no erythema, lips, buccal mucosa, and tongue normal and mucous membranes are moist LUNGS: Diminished bilaterally. Normal chest wall mechanics HEART: no murmurs, S1 normal and S2 normal ABDOMEN: abdomen soft, non-tender, normo-active bowel sounds, no masses, no rebound or guarding. UPPER EXTREMITIES: upper extremities are grossly normal. LOWER EXTREMITIES: No pitting edema. NEURO EXAM: Unresponsive but responds to sternal rubs moves all extremities and follow commands for short period time MEDICAL DECISION MAKING: Patient is a 71-year-old male who presents to the ER for respiratory distress brought in by EMS. Upon arrival patient is unresponsive on BiPAP. Awakens to sternal rub and answers questions for 2 to 3 seconds and then falls back asleep. He was taken emergently in to be 1. IVs were established blood work was obtained. Patient was intubated emergently with succinylcholine and ketamine. Patient was placed on a propofol drip and fentanyl drip. Labs show no significant leukocytosis or anemia. ABG with a CO2 greater than 130 and a pH of 7.0. Repeat ABG shows improving pH. Respiratory rate was increased on the ventilator following initial ABG with a CO2 greater than 130. Creatinine was 2.2 which was consistent with previous. Patient did drop his pressures while on propofol. We did titrate back down on the propofol and fentanyl as pressures went into the 60s as he was bolused by nursing staff per protocol. We were then titrating back up. Vent was changed multiple times as well. Triage Nursing notes reviewed. Limited review of prior medical records performed Vital Signs: reviewed and remarkable for no significant abnormalities Differential diagnosis: Differential diagnoses includes but is not limited to pneumonia, bronchitis, COPD/Asthma exacerbation, pneumothorax, pulmonary embolism, congestive heart failure, acute coronary syndrome ER treatment provided: See below Diagnostics interpreted by me: ECG: Sinus rhythm rate 77 Left axis No PVCs Poor baseline Septal Q waves Cardiac Monitoring: An order was placed for continuous cardiac monitoring. The monitor shows a rate of 88 with sinus rhythm. Laboratory studies: As stated above and show below. Imaging studies: Portable AP upright 1 view of the chest shows focal pneumonia and ET tube in good position Consultation(s): Discussed with Dr. Wade for admission to the ICU as patient was intubated Discussed with the hospitalist for further evaluation Dr. Mart[facility]nez's [facility] Procedures: none Critical Care: I have personally spent 135 minutes of critical care time in the direct management of this patient. This includes bedside care, interpretation of diagnostic studies, and testing, discussion with consultants, patient, and family members, and other required patient management activities. This 135 minutes is in excess of all separately billable procedures. Past Med/Surg History Medical History EDILMA (acute kidney injury) BPH (benign prostatic hyperplasia) CAD (coronary artery disease) Chronic kidney disease COPD (chronic obstructive pulmonary disease) Dyslipidemia GERD (gastroesophageal reflux disease) History of IL (myocardial infarction) Hyperkalemia Hypertension Hypophosphatemia Morbid obesity with BMI of 40.0-44.9, adult Nephrolithiasis Obstructive sleep apnea of adult On anticoagulant therapy On home oxygen therapy Peripheral neuropathy SBO (small bowel obstruction) Uncontrolled type 2 diabetes mellitus with diabetic neuropathy, with long-term current use of insulin UTI (urinary tract infection) Surgical History History of bilateral cataract extraction History of cardiac cath History of carpal tunnel release History of colonoscopy History of lithotripsy History of lithotripsy History of tooth extraction Hx of transurethral resection of prostate S/P cystoscopy with ureteral stent placement Family History Mother Family history of diabetes mellitus Coronary heart disease [place] Father Coronary heart disease [place] Myocardial infarction Other No family history of adverse response to anesthesia Denies family history of Ovarian cancer Prostate cancer Breast cancer Colorectal cancer Social History Smoking Status: Former smoker Tobacco Type: Cigarettes Age Started Using Tobacco: 16; Age Quit Using Tobacco: 62; Cigarettes Per Day: 20-30 a clinton; Smoking End Date: 10 years ago; Second Hand Exposure: No (family smoked); Tobacco Cessation Education Requested by Patient: No Hx Alcohol Use: No Hx Substance Use: No Preferred Language: Tunisian Communication Ability: Effective Visual Impairment: No Limitations Hearing Ability: Normal Transformation Architect Required: No Beliefs That Will Affect Care: None marital status: Current Living Situation: Spouse current occupational status: retired How many Children do You have: 3 Other Information That Helps Us Care for You: No Feels Safe at Home: Yes Safety Concerns: Feels Safe At This Time Childhood Exposure to Second-Hand Smoke: Yes caffeine: Yes (Tea and soda ) Dental Care, Regularly: Yes Physical Activity Frequency: Does not Exercise Seatbelt Use: sometimes Sunscreen Use: No Assistive Devices: Cane, Denture - Upper, Oxygen - Continuous and Walker Allergies Allergies Allergy/AdvReac Type Severity Reaction Status Date / Time azithromycin Allergy Mild diarrhea Verified 07/01/22 20:23 Home Meds Home Medications Medication Instructions Recorded Confirmed cholecalciferol (vitamin D3) 25 1,000 unit PO BID 08/22/18 07/01/22 mcg (1,000 unit) tablet (Vitamin D3) acetaminophen 325 mg tablet 650 mg PO TID PRN Pain 04/27/20 07/01/22 aspirin 81 mg tablet,delayed 81 mg PO QPM 06/08/20 07/01/22 release albuterol sulfate 0.63 mg/3 mL 0.63 mg continuous nebulization 03/27/21 07/01/22 solution for nebulization QID PRN Shortness Of Breath Or Wheezing furosemide 20 mg tablet 20 mg PO DAILY PRN Edema 04/26/21 07/01/22 insulin regular human 100 unit/mL 35 unit subcut BID 09/23/21 07/01/22 injection solution (Novolin R Regular U-100 Insulin) Previous Rx's Medication Instructions Recorded pantoprazole 40 mg tablet,delayed 40 mg PO DAILY PRN GERD #90 tabs 02/24/21 release (Protonix) nystatin 100,000 unit/gram topical 1 applic topical BID PRN rash #30 04/05/21 cream grams atorvastatin 40 mg tablet (Lipitor) 40 mg PO HS #30 tabs 05/10/21 finasteride 5 mg tablet (Proscar) 5 mg PO QAM #90 tabs 05/10/21 menthol 0.44 %-zinc oxide 20.6 % 1 applic topical QID PRN skin 05/10/21 topical ointment (Calmoseptine) irritation #113 grams Trulicity 1.5 mg/0.5 mL 1.5 mg (0.5 mL) subcut Q7D 90 days 11/03/21 subcutaneous pen injector #12 SYRINGES (dulaglutide) gabapentin 300 mg capsule 300 mg PO BID #180 caps 12/17/21 metoprolol tartrate 100 mg tablet 100 mg PO BID #180 tabs 12/17/21 (Lopressor) insulin degludec 200 unit/mL (3 60 unit (0.3 mL) subcut HS #1 box 01/28/22 mL) subcutaneous pen (Tresiba FlexTouch U-200 insulin) bupropion HCl 150 mg tablet,12 hr 150 mg PO BID 90 days #180 ea 03/23/22 sustained-release clopidogrel 75 mg tablet 75 mg PO QAM #90 tabs 04/04/22 ipratropium 0.5 mg-albuterol 3 mg 3 ml inhalation Q4 PRN wheezing 06/07/22 (2.5 mg base)/3 mL nebulization #360 mL soln fluticasone furoate 100 1 inh inhalation DAILY #60 ea 06/27/22 mcg-vilanterol 25 mcg/dose inhalation powder (Breo Ellipta) Results & Data (ED) Vital Signs Vital Signs - 24 hr 07/01/22 17:57 07/01/22 18:08 07/01/22 18:12 Temperature 36.9 C Temperature Source Oral Pulse Rate 76 Pulse Rate [Finger] 74 Pulse Rate from SpO2 Sensor Respiratory Rate 22 22 Respiratory Effort / Characteristics Respiratory Pattern Blood Pressure 183/98 H Blood Pressure [Left Arm] 144/84 H Blood Pressure Mean 126 Blood Pressure Mean [Left Arm] 104 Pulse Oximetry 96 97 Oxygen Delivery Method Mechanical Vent Mechanical Vent Fraction of Inspired Oxygen SaO2/FiO2 Ratio Sepsis Recent Fever Within 48 Hours Yes Sepsis New/Unexplained Change in Mental Status N/A Sepsis Action Taken by Nursing No Action Required End-Tidal CO2 End Tidal CO2 (18-54mmHg) 07/01/22 17:39 07/01/22 18:05 07/01/22 17:20 Temperature Temperature Source Pulse Rate 83 87 Pulse Rate [Finger] Pulse Rate from SpO2 Sensor Respiratory Rate 20 28 H 18 Respiratory Effort / Characteristics Respiratory Pattern Regular Blood Pressure Blood Pressure [Left Arm] Blood Pressure Mean Blood Pressure Mean [Left Arm] Pulse Oximetry 93 98 Oxygen Delivery Method Fraction of Inspired Oxygen 80 90 SaO2/FiO2 Ratio Sepsis Recent Fever Within 48 Hours Sepsis New/Unexplained Change in Mental Status Sepsis Action Taken by Nursing End-Tidal CO2 71 End Tidal CO2 (18-54mmHg) 07/01/22 18:22 07/01/22 18:30 07/01/22 18:44 Temperature Temperature Source Pulse Rate Pulse Rate [Finger] 73 74 72 Pulse Rate from SpO2 Sensor Respiratory Rate 16 22 20 Respiratory Effort / Characteristics Mechanically Ventilated Respiratory Pattern Blood Pressure Blood Pressure [Left Arm] 122/85 122/85 76/48 L Blood Pressure Mean Blood Pressure Mean [Left Arm] 97 97 57 Pulse Oximetry 97 97 96 Oxygen Delivery Method Mechanical Vent Mechanical Vent Mechanical Vent Fraction of Inspired Oxygen 60 60 SaO2/FiO2 Ratio 161 160 Sepsis Recent Fever Within 48 Hours Sepsis New/Unexplained Change in Mental Status Sepsis Action Taken by Nursing End-Tidal CO2 End Tidal CO2 (18-54mmHg) 68 07/01/22 18:50 07/01/22 18:53 07/01/22 18:55 Temperature Temperature Source Pulse Rate 70 69 67 Pulse Rate [Finger] Pulse Rate from SpO2 Sensor 70 69 67 Respiratory Rate 28 H 28 H 28 H Respiratory Effort / Characteristics Respiratory Pattern Blood Pressure 67/43 L 68/43 L Blood Pressure [Left Arm] Blood Pressure Mean 51 51 Blood Pressure Mean [Left Arm] Pulse Oximetry 97 96 95 Oxygen Delivery Method Mechanical Vent Mechanical Vent Mechanical Vent Fraction of Inspired Oxygen SaO2/FiO2 Ratio Sepsis Recent Fever Within 48 Hours Sepsis New/Unexplained Change in Mental Status Sepsis Action Taken by Nursing End-Tidal CO2 47 46 45 End Tidal CO2 (18-54mmHg) 07/01/22 18:55 07/01/22 19:00 07/01/22 19:10 Temperature Temperature Source Pulse Rate 71 73 Pulse Rate [Finger] Pulse Rate from SpO2 Sensor 67 Respiratory Rate 28 H 28 H Respiratory Effort / Characteristics Respiratory Pattern Blood Pressure 74/47 L 104/75 Blood Pressure [Left Arm] Blood Pressure Mean 56 84 Blood Pressure Mean [Left Arm] Pulse Oximetry 91 97 Oxygen Delivery Method Mechanical Vent Fraction of Inspired Oxygen 60 SaO2/FiO2 Ratio Sepsis Recent Fever Within 48 Hours Sepsis New/Unexplained Change in Mental Status Sepsis Action Taken by Nursing End-Tidal CO2 57 58 End Tidal CO2 (18-54mmHg) 07/01/22 19:21 07/01/22 19:39 07/01/22 19:40 Temperature Temperature Source Pulse Rate Pulse Rate [Finger] 73 72 Pulse Rate from SpO2 Sensor Respiratory Rate 19 28 H Respiratory Effort / Characteristics Respiratory Pattern Blood Pressure Blood Pressure [Left Arm] 102/72 139/75 Blood Pressure Mean Blood Pressure Mean [Left Arm] 82 96 Pulse Oximetry 100 100 Oxygen Delivery Method Mechanical Vent Mechanical Vent Fraction of Inspired Oxygen SaO2/FiO2 Ratio Sepsis Recent Fever Within 48 Hours Sepsis New/Unexplained Change in Mental Status Sepsis Action Taken by Nursing End-Tidal CO2 End Tidal CO2 (18-54mmHg) 58 Laboratory Data Result diagrams: 07/01/22 17:20 07/01/22 17:20 Lab Results 07/01/22 07/01/22 07/01/22 Range/Units 17:20 17:20 17:55 WBC 10.51 (4.8-10.8) K/ul RBC 5.03 (4.63-6.08) M/uL Hgb 15.3 (14.0-18.0) g/dl POC Hgb (14.0-18.0) g/dl Hct 49.7 (40.1-51.0) % POC Hct (42-52) % MCV 98.8 (80.0-100.0) fL MCH 30.4 (25.0-34.0) pg MCHC 30.8 L (32.0-36.0) g/dL RDW Std Deviation 52.7 H (36.4-46.3) fL RDW Coeff of Cirilo 14.6 H (11.5-14.5) % Plt Count 210 (130-400) K/uL MPV 9.3 L (9.4-12.4) fL Immature Gran % (Auto) 2.7 % Neut % (Auto) 76.1 % Lymph % (Auto) 6.7 % Moore % (Auto) 12.9 % Eos % (Auto) 0.8 % Baso % (Auto) 0.8 % Neut # (Auto) 8.01 H (1.4-6.5) K/uL Lymph # (Auto) 0.70 L (1.2-3.4) K/uL Moore # (Auto) 1.36 H (0.24-0.82) K/uL Eos # (Auto) 0.08 (0-0.50) K/uL Baso # (Auto) 0.08 (0-0.2) K/uL Immature Gran # (Auto) 0.28 H (0.00-0.02) K/uL Absolute Nucleated RBC 0.02 H (0-0) K/uL Nucleated RBC % (auto) 0.2 % POC pH (7.35-7.45) POC pCO2 (35-46) mmHg POC pO2 (80-95) mmHg POC HCO3 (19-24) raina/L POC Total CO2 (24-31) mmol/L POC Base Excess (-9-1.8) raina/L POC ABG O2 Sat (90-95) % POC Sodium (135-144) mmol/L Sodium 143 (136-145) mmol/L POC Potassium (3.3-5.0) mmol/L Potassium 3.8 (3.5-5.1) mmol/L Chloride 103 (98-107) mmol/L Carbon Dioxide 34 H (21-32) mmol/L Anion Gap 6 (3-11) BUN 26 H (6-23) mg/dl Creatinine 2.23 H (0.6-1.4) mg/dl Est Cr Clr Drug Dosing Not Reportable Est GFR ( Amer) 33.6 ml/min Est GFR (Non-Af Amer) 29.0 ml/min BUN/Creatinine Ratio 11.7 (10-20) Glucose 133 H (70-99(Fasting)) mg/dl POC Glucose (70-99) mg/dl Lactate (0.4-2.0) mmol/L Calcium 9.8 (8.5-10.1) mg/dl Total Bilirubin 0.5 (0.2-1.0) mg/dl AST 20 (13-39) U/L ALT 21 (7-52) U/L Alkaline Phosphatase 117 H (34-104) U/L Troponin I High Sens 78.7 H* (0-20) pg/ml Total Protein 7.6 (6.0-8.3) gm/dl Albumin 3.5 (3.4-5.0) gm/dl Globulin 4.1 H (2.5-4.0) gm/dl Albumin/Globulin Ratio 0.9 (0.9-2) Lipase 38 (11-82) U/L Adenovirus (PCR) Not Detected (NotDetected) B. pertussis DNA (PCR) Not Detected (NotDetected) B.parapertussis DNA PCR Not Detected (NotDetected) C. pneumoniae DNA (PCR) Not Detected (NotDetected) Coronavirus OC43 (PCR) Not Detected (NotDetected) Coronavirus HKU1 (PCR) Not Detected (NotDetected) Coronavirus 229E (PCR) Not Detected (NotDetected) SARS-CoV-2 (PCR) Not Detected (NotDetected) Coronavirus NL63 (PCR) Not Detected (NotDetected) Human Metapneumovir PCR Not Detected (NotDetected) Influenza Type A (PCR) Not Detected (NotDetected) Influenza Type B (PCR) Not Detected (NotDetected) M. pneumoniae (PCR) Not Detected (NotDetected) Parainfluenza 1 (PCR) Not Detected (NotDetected) Parainfluenza 2 (PCR) Not Detected (NotDetected) Parainfluenza 3 (PCR) Not Detected (NotDetected) Parainfluenza 4 (PCR) Not Detected (NotDetected) RSV (PCR) Not Detected (NotDetected) Entero/Rhino (PCR) Not Detected (NotDetected) 07/01/22 07/01/22 07/01/22 Range/Units 18:40 19:11 19:47 WBC (4.8-10.8) K/ul RBC (4.63-6.08) M/uL Hgb (14.0-18.0) g/dl POC Hgb 12.6 L (14.0-18.0) g/dl Hct (40.1-51.0) % POC Hct 37 L (42-52) % MCV (80.0-100.0) fL MCH (25.0-34.0) pg MCHC (32.0-36.0) g/dL RDW Std Deviation (36.4-46.3) fL RDW Coeff of Cirilo (11.5-14.5) % Plt Count (130-400) K/uL MPV (9.4-12.4) fL Immature Gran % (Auto) % Neut % (Auto) % Lymph % (Auto) % Moore % (Auto) % Eos % (Auto) % Baso % (Auto) % Neut # (Auto) (1.4-6.5) K/uL Lymph # (Auto) (1.2-3.4) K/uL Moore # (Auto) (0.24-0.82) K/uL Eos # (Auto) (0-0.50) K/uL Baso # (Auto) (0-0.2) K/uL Immature Gran # (Auto) (0.00-0.02) K/uL Absolute Nucleated RBC (0-0) K/uL Nucleated RBC % (auto) % POC pH 7.20 L (7.35-7.45) POC pCO2 88 H (35-46) mmHg POC pO2 118 H (80-95) mmHg POC HCO3 34 H (19-24) raina/L POC Total CO2 37 H (24-31) mmol/L POC Base Excess 6.0 H (-9-1.8) raina/L POC ABG O2 Sat 97.0 H (90-95) % POC Sodium 144 (135-144) mmol/L Sodium (136-145) mmol/L POC Potassium 3.8 (3.3-5.0) mmol/L Potassium (3.5-5.1) mmol/L Chloride (98-107) mmol/L Carbon Dioxide (21-32) mmol/L Anion Gap (3-11) BUN (6-23) mg/dl Creatinine (0.6-1.4) mg/dl Est Cr Clr Drug Dosing Est GFR ( Amer) ml/min Est GFR (Non-Af Amer) ml/min BUN/Creatinine Ratio (10-20) Glucose (70-99(Fasting)) mg/dl POC Glucose 104 H (70-99) mg/dl Lactate 1.2 (0.4-2.0) mmol/L Calcium (8.5-10.1) mg/dl Total Bilirubin (0.2-1.0) mg/dl AST (13-39) U/L ALT (7-52) U/L Alkaline Phosphatase (34-104) U/L Troponin I High Sens (0-20) pg/ml Total Protein (6.0-8.3) gm/dl Albumin (3.4-5.0) gm/dl Globulin (2.5-4.0) gm/dl Albumin/Globulin Ratio (0.9-2) Lipase (11-82) U/L Adenovirus (PCR) (NotDetected) B. pertussis DNA (PCR) (NotDetected) B.parapertussis DNA PCR (NotDetected) C. pneumoniae DNA (PCR) (NotDetected) Coronavirus OC43 (PCR) (NotDetected) Coronavirus HKU1 (PCR) (NotDetected) Coronavirus 229E (PCR) (NotDetected) SARS-CoV-2 (PCR) (NotDetected) Coronavirus NL63 (PCR) (NotDetected) Human Metapneumovir PCR (NotDetected) Influenza Type A (PCR) (NotDetected) Influenza Type B (PCR) (NotDetected) M. pneumoniae (PCR) (NotDetected) Parainfluenza 1 (PCR) (NotDetected) Parainfluenza 2 (PCR) (NotDetected) Parainfluenza 3 (PCR) (NotDetected) Parainfluenza 4 (PCR) (NotDetected) RSV (PCR) (NotDetected) Entero/Rhino (PCR) (NotDetected) Administered Medications Albuterol (Albut/Ipratrop 3mg/0.5mg Neb 3 Ml Vial) 3 ml NEB Q6H KAYLEEN; Protocol Stop: 07/31/22 22:59 Last Admin: 07/01/22 23:51 Dose: 3 ml Documented By: JAMIE Aspirin (Aspirin 81 Mg Chew) 81 mg PO QPM KAYLEEN Stop: 07/31/22 20:59 Last Admin: 07/01/22 23:32 Dose: 81 mg Documented By: RONDA Atorvastatin Calcium (Atorvastatin 40 Mg Tab) 40 mg PO HS [facility] Stop: 07/31/22 20:59 Last Admin: 07/01/22 23:30 Dose: 40 mg Documented By: RONDA Gabapentin (Gabapentin 250 Mg/5 Ml 470 Ml Btl) 300 mg PO BID [facility] Stop: 07/31/22 20:59 Last Admin: 07/01/22 23:30 Dose: 300 mg Documented By: RONDA Propofol (Diprivan) 1,000 mg in 100 mls @ 28.35 mls/hr IV .Q3H32M KAYLEEN; Protocol Stop: 07/04/22 17:59 Last Admin: 07/01/22 21:56 Dose: 35 mcg/kg/min, 28.4 mls/hr Documented By: RONDA Co-signed By: NMS Titration: 07/01/22 21:50 Dose: 35 mcg/kg/min, 28.4 mls/hr Documented By: RONDA Co-signed By: NMS Titration: 07/01/22 19:09 Dose: 35 mcg/kg/min, 28.4 mls/hr Documented By: Titration: 07/01/22 19:01 Dose: 30 mcg/kg/min, 24.3 mls/hr Documented By: Titration: 07/01/22 18:50 Dose: 0 mcg/kg/min, 0 mls/hr Documented By: Titration: 07/01/22 18:43 Dose: 35 mcg/kg/min, 28.4 mls/hr Documented By: Titration: 07/01/22 18:13 Dose: 30 mcg/kg/min, 24.3 mls/hr Documented By: Titration: 07/01/22 18:04 Dose: 25 mcg/kg/min, 20.3 mls/hr Documented By: Admin: 07/01/22 17:55 Dose: 20 mcg/kg/min, 16.2 mls/hr Documented By: AFUA Co-signed By: DORA Fentanyl Citrate (Fentanyl Citrate) 2,500 mcg in 250 mls @ 2.5 mls/hr IV .Q96H KAYLEEN; Protocol Stop: 07/15/22 17:59 Last Titration: 07/01/22 21:00 Dose: 25 mcg/hr, 2.5 mls/hr Documented By: RONDA Co-signed By: CHRIS Titration: 07/01/22 18:52 Dose: 0 mcg/hr, 0 mls/hr Documented By: RAMEZ Co-signed By: AFUA Admin: 07/01/22 18:19 Dose: 25 mcg/hr, 2.5 mls/hr Documented By: AFUA Co-signed By: DORA Methylprednisolone 40 mg/ (Syringe) 0.64 mls @ 1.5 mls/min IV DAILY KAYLEEN Stop: 07/31/22 21:59 Last Admin: 07/01/22 21:56 Dose: 1.5 mls/min Documented By: RONDA Insulin Aspart (Insulin Aspart Per Unit) 0 units SC Q4 KAYLEEN Stop: 08/01/22 00:00 Last Admin: 07/01/22 23:42 Dose: 1 units Documented By: RONDA Co-signed By: CHRIS Metoprolol Tartrate (Metoprolol Tartrate 100 Mg Tab) 100 mg PO BID KAYLEEN Stop: 07/31/22 20:59 Last Admin: 07/01/22 23:30 Dose: Not Given Documented By: RONDA Propofol (Propofol Bolus From Bag) 20 mg IV Q5M PRN PRN Reason: Sedation Stop: 07/04/22 17:45 Last Admin: 07/01/22 18:42 Dose: 20 mg Documented By: AFUA Co-signed By: ROBERTA Admin: 07/01/22 18:03 Dose: 20 mg Documented By: AFUA Co-signed By: DORA Admin: 07/01/22 18:00 Dose: 20 mg Documented By: AFUA Co-signed By: DORA Admin: 07/01/22 17:55 Dose: 20 mg Documented By: AFUA Co-signed By: DORA Vitamin D (Cholecalciferol 1,000 Units 25 Mcg Tab) 1,000 units PO BID KAYLEEN Stop: 07/31/22 20:59 Last Admin: 07/01/22 23:30 Dose: 1,000 units Documented By: RONDA Discontinued Medications Cefepime HCl (Maxipime) 2,000 mg in 20 mls @ 5 mls/min IV NOW STA; Protocol Stop: 07/01/22 17:43 Last Admin: 07/01/22 18:20 Dose: 5 mls/min Documented By: AFUA Sodium Chloride (Nss 1000ml) 1,000 mls @ 999 mls/hr IV .Q1H1M ONE Stop: 07/01/22 20:03 Last Infusion: 07/01/22 20:01 Dose: 0 mls/hr Documented By: Admin: 07/01/22 19:04 Dose: 999 mls/hr Documented By: RAMEZ Miscellaneous (Rapid Sequence Induction Bag) Confirm Administered Dose 1 each .ROUTE .STK-MED ONE Stop: 07/01/22 17:21 Last Admin: 07/01/22 22:31 Dose: Not Given Documented By: RONDA Bruner (Stat Iv Infusion Titration Per Protocol) 1 each N/A NOW STA Stop: 07/01/22 17:58 Last Admin: 07/01/22 22:31 Dose: Not Given Documented By: RONDA Propofol (Propofol Iv Emulsion 10 Mg/Ml 100 Ml Vial) Confirm Administered Dose 1,000 mg IV .STK-MED ONE Stop: 07/01/22 17:40 Last Admin: 07/01/22 18:05 Dose: 1,000 mg Documented By: AFUA Co-signed By: DORA Imaging Data Radiologist's Impression: Chest X-Ray 07/01/22 17:19 XR chest 1V portable CLINICAL HISTORY: Chest Pain TECHNIQUE: Single frontal radiograph of the chest was obtained. Comparison: Comparison is made to chest radiograph 06/27/[address] chest 03/07/2022 FINDINGS: Endotracheal tube terminates 21 mm from the dolores. Cardiomegaly is noted. Left basilar opacity is again seen. No pneumothorax. A left pleural effusion cannot be entirely excluded. A left lung base bleb is noted. IMPRESSION: 1. A left basilar opacity is seen. This likely reflects epicardial fat pad with or without superimposed atelectasis, aspiration, and/or pneumonia. 2. Cannot exclude left pleural effusion. ACT 112: Negative or not required by law. Electronically signed by: Agustín Hayes M.D. 07/01/2022 5:58 PM Discharge Plan Visit Data Chief Complaint: Shortness of Breath/Dyspnea Stated Complaint: SHORTNESS OF BREATH ED Provider: [facility] Day Discharge Problem: Respiratory failure, Sepsis, Acidosis, Pneumonia Patient Disposition: Admitted As Inpatient Discharge Instructions Interventions: ED Discharge Assessment Last Done: 07/01/22 20:23
[2022-07-01] MEDS: propofoL 1,000 MG/100 ML VIAL IV SCH ×2 (17:55→21:56)
[2022-07-01] MEDS: PROPOFOL BOLUS FROM BAG IV PRN ×4 (17:55→18:42)
[2022-07-01] MEDS ORDERED: fentaNYL BOLUS from BAG IV PRN (17:57)
[2022-07-01] MEDS ORDERED: fentaNYL citrate 2,500 MCG/250 ML BAG IV SCH (18:00)
--- NOTE | 2022-07-01 18:00 | XRay Report ---
XR chest 1V portable CLINICAL HISTORY: Chest Pain TECHNIQUE: Single frontal radiograph of the chest was obtained. Comparison: Comparison is made to chest radiograph 06/27/[address] chest 03/07/2022 FINDINGS: Endotracheal tube terminates 21 mm from the dolores. Cardiomegaly is noted. Left basilar opacity is ag ain seen. No pneumothorax. A left pleural effusion cannot be entirely excluded. A left lung base bleb is noted. IMPRESSION: 1. A left basilar opacity is seen. This likely reflects epicardial fat pad with or without superimpo sed atelectasis, aspiration, and/or pneumonia. 2. Cannot exclude left pleural effusion. ACT 112: Negative or not required by law. Electronically signed by: Agustín Hayes M.D. 07/01/2022 5:58 PM
[2022-07-01 18:02] LABS: Alanine Aminotransferase 21 U/L (7-52); Albumin Globulin Ratio 0.9 (0.9-2); Albumin Level 3.5 gm/dl (3.4-5.0); Alkaline Phosphatase 117 U/L (34-104); Anion Gap 6 (3-11); Aspartate Aminotransferase 20 U/L (13-39); BUN Creatinine Ratio 11.7 (10-20); Bilirubin,Total 0.5 mg/dl (0.2-1.0); Blood Urea Nitrogen 26 mg/dl (6-23); Calcium 9.8 mg/dl (8.5-10.1); Carbon Dioxide 34 mmol/L (21-32); Chloride 103 mmol/L (98-107); Est GFR (African American) 33.6 ml/min; Globulin 4.1 gm/dl (2.5-4.0); Glucose 133 mg/dl (70-99(Fasting)); Lipase 38 U/L (11-82); Potassium 3.8 mmol/L (3.5-5.1); Sodium 143 mmol/L (136-145); Total Protein 7.6 gm/dl (6.0-8.3)
[2022-07-01 18:15] LABS: Troponin I High Sensitivity 78.7 pg/ml (0-20)
[2022-07-01] MEDS ORDERED: Patient's HEIGHT &/or WEIGHT Needed SCH (18:15)
[2022-07-01] MEDS ORDERED: SODIUM CHLORIDE 0.9% 1000ML 1,000 ML IV ONE (19:03)
[2022-07-01 19:21] LABS: Adenovirus PCR Not Detected (NotDetected); Bordetella parapertussis PCR Not Detected (NotDetected); Bordetella pertussis PCR Not Detected (NotDetected); Chlamydia pneumoniae PCR Not Detected (NotDetected); Coronavirus 229E PCR Not Detected (NotDetected); Coronavirus CoV-2 (COVID19)PCR Not Detected (NotDetected); Coronavirus HKU1 PCR Not Detected (NotDetected); Coronavirus NL63 PCR Not Detected (NotDetected); Coronavirus OC43PCR Not Detected (NotDetected); Human Metapneumovirus PCR Not Detected (NotDetected); Influenza A PCR Not Detected (NotDetected); Influenza B PCR Not Detected (NotDetected); Mycoplasma pneumoniae PCR Not Detected (NotDetected); Parainfluenza Virus 1 PCR Not Detected (NotDetected); Parainfluenza Virus 2 PCR Not Detected (NotDetected); Parainfluenza Virus 3 PCR Not Detected (NotDetected); Parainfluenza Virus 4 PCR Not Detected (NotDetected); Respiratory Syncytial VirusPCR Not Detected (NotDetected); Rhinovirus/Enterovirus PCR Not Detected (NotDetected)
[2022-07-01 19:29] LABS: iSTAT Arterial Blood Gas HCO3 34 meg/L (19-24); iSTAT Arterial Blood Gas pCO2 88 mmHg (35-46); iSTAT Arterial Blood Gas pO2 118 mmHg (80-95); iSTAT Carbon Dioxide 37 mmol/L (24-31); iSTAT Hematocrit 37 % (42-52); iSTAT Hemoglobin 12.6 g/dl (14.0-18.0); iSTAT Potassium 3.8 mmol/L (3.3-5.0); iSTAT Sodium 144 mmol/L (135-144)
[2022-07-01] MEDS ORDERED: ICU Protocol for HYPERglycemia PRN (19:53)
--- NOTE | 2022-07-01 19:58 | History & Physical Report ---
Date of Service July 01, 2022 Assessment & Plan (1) Acute respiratory failure with hypoxia and hypercapnia: Plan: Patient intubated acute respiratory failure with hypoxia and hypercapnia. Appears patient is not compliant with his home meds as per manager food beverage. Patient placed on cefepime. BIOFIRE negative. COVID negative steroids added. Inhalers ordered. (2) Controlled type 2 diabetes mellitus: Plan: consulted glycemic control Placed on insulin ICU protocol (3) CKD (chronic kidney disease) stage 4, GFR 15-29 ml/min: Plan: creatinine appears to be at baseline (4) Dyslipidemia: Plan: resume atorvastatin (5) Hypertension: Plan: resume home meds (6) Acute exacerbation of chronic obstructive pulmonary disease (COPD): Plan: as stated above. History of Present Illness Chief Complaint: SOB Primary Care Provider: Salas Valente, 71 yo male with h/o COPD exacerbation, type II DM, and CKD presents to the ER with SOB which worsened over the course of the past 4 days. When I arrived to see patient, patient already intubated. ER provider states that patient has been gradually worsening with SOB, and cough for past 4 days. His had an upper respiratory symptoms the week before. When patient arrived, he was hypoxic , tachypnic and ABG showed a pCO2 of 88, which led to his intubation. Allergies Allergy/AdvReac Type Severity Reaction Status Date / Time azithromycin Allergy Mild diarrhea Verified 07/01/22 20:23 Home Medications Medication Instructions Recorded Confirmed Type cholecalciferol (vitamin D3) 25 1,000 unit PO BID 08/22/18 07/01/22 History mcg (1,000 unit) tablet (Vitamin D3) acetaminophen 325 mg tablet 650 mg PO TID PRN Pain 04/27/20 07/01/22 History aspirin 81 mg tablet,delayed 81 mg PO QPM 06/08/20 07/01/22 History release pantoprazole 40 mg tablet,delayed 40 mg PO DAILY PRN GERD #90 tabs 02/24/21 07/01/22 Rx release (Protonix) albuterol sulfate 0.63 mg/3 mL 0.63 mg continuous nebulization 03/27/21 07/01/22 History solution for nebulization QID PRN Shortness Of Breath Or Wheezing nystatin 100,000 unit/gram topical 1 applic topical BID PRN rash #30 04/05/21 07/01/22 Rx cream grams furosemide 20 mg tablet 20 mg PO DAILY PRN Edema 04/26/21 07/01/22 History atorvastatin 40 mg tablet (Lipitor) 40 mg PO HS #30 tabs 05/10/21 07/01/22 Rx finasteride 5 mg tablet (Proscar) 5 mg PO QAM #90 tabs 05/10/21 07/01/22 Rx menthol 0.44 %-zinc oxide 20.6 % 1 applic topical QID PRN skin 05/10/21 07/01/22 Rx topical ointment (Calmoseptine) irritation #113 grams insulin regular human 100 unit/mL 35 unit subcut BID 09/23/21 07/01/22 History injection solution (Novolin R Regular U-100 Insulin) Trulicity 1.5 mg/0.5 mL 1.5 mg (0.5 mL) subcut Q7D 90 days 11/03/21 07/01/22 Rx subcutaneous pen injector #12 SYRINGES (dulaglutide) gabapentin 300 mg capsule 300 mg PO BID #180 caps 12/17/21 07/01/22 Rx metoprolol tartrate 100 mg tablet 100 mg PO BID #180 tabs 12/17/21 07/01/22 Rx (Lopressor) insulin degludec 200 unit/mL (3 60 unit (0.3 mL) subcut HS #1 box 01/28/22 07/01/22 Rx mL) subcutaneous pen (Tresiba FlexTouch U-200 insulin) bupropion HCl 150 mg tablet,12 hr 150 mg PO BID 90 days #180 ea 03/23/22 07/01/22 Rx sustained-release clopidogrel 75 mg tablet 75 mg PO QAM #90 tabs 04/04/22 07/01/22 Rx ipratropium 0.5 mg-albuterol 3 mg 3 ml inhalation Q4 PRN wheezing 06/07/22 07/01/22 Rx (2.5 mg base)/3 mL nebulization #360 mL soln fluticasone furoate 100 1 inh inhalation DAILY #60 ea 06/27/22 07/01/22 Rx mcg-vilanterol 25 mcg/dose inhalation powder (Breo Ellipta) Past Med/Surg History Medical History EDILMA (acute kidney injury) BPH (benign prostatic hyperplasia) CAD (coronary artery disease) Acute [place] 03/2011, complicated by 3 episodes of v fib requiring electrical shock- ZITA x2 Chronic kidney disease With recent EDILMA on CKD. COPD (chronic obstructive pulmonary disease) Severe, per pulm- 2L N/C prn Dyslipidemia GERD (gastroesophageal reflux disease) History of [place] (myocardial infarction) Acute [place] 03/2011, complicated by 3 episodes of v fib requiring electrical shock- ZITA x2 Hyperkalemia Hypertension Hypophosphatemia Morbid obesity with BMI of 40.0-44.9, adult Nephrolithiasis Admitted to [facility] for 7 mm L ureteral stone causing hydronephrosis/EDILMA Obstructive sleep apnea of adult Patient refuses CPAP. On anticoagulant therapy plavix daily On home oxygen therapy 2L N/C prn Peripheral neuropathy SBO (small bowel obstruction) current diagnosis--reason for scheduled colonoscopy Uncontrolled type 2 diabetes mellitus with diabetic neuropathy, with long-term current use of insulin UTI (urinary tract infection) Surgical History History of bilateral cataract extraction History of cardiac cath 2010- stents x2 History of carpal tunnel release right History of colonoscopy Colonoscopy: 03/18/19: MAC sedation at [facility] History of lithotripsy Left ESWL: 09/14/18[place] [facility] [place]: 135.1[place] History of lithotripsy Left ESWL 06/07/19 [facility] History of tooth extraction Hx of transurethral resection of prostate S/P cystoscopy with ureteral stent placement mulitple---last 04/16/20, 03/05/2020 08/23/2018. MAC. No issues. Family History Mother Family history of diabetes mellitus Coronary heart disease [place] Father Coronary heart disease [place] Myocardial infarction Other No family history of adverse response to anesthesia Denies family history of Ovarian cancer Prostate cancer Breast cancer Colorectal cancer Social History Smoking Status: Former smoker Tobacco Type: Cigarettes Age Started Using Tobacco: 16; Age Quit Using Tobacco: 62; Cigarettes Per Day: 20-30 a clinton; Smoking End Date: 10 years ago; Second Hand Exposure: No (family smoked); Tobacco Cessation Education Requested by Patient: No Hx Alcohol Use: No Hx Substance Use: No Preferred Language: Kinyarwanda Communication Ability: Effective Visual Impairment: No Limitations Hearing Ability: Normal Automatic Lathe Tender Required: No Beliefs That Will Affect Care: None marital status: Current Living Situation: Spouse current occupational status: retired How many Children do You have: 3 Other Information That Helps Us Care for You: No Feels Safe at Home: Yes Safety Concerns: Feels Safe At This Time Childhood Exposure to Second-Hand Smoke: Yes caffeine: Yes (Tea and soda ) Dental Care, Regularly: Yes Physical Activity Frequency: Does not Exercise Seatbelt Use: sometimes Sunscreen Use: No Assistive Devices: Cane, Denture - Upper, Oxygen - Continuous and Walker Review of Systems Review of Systems: Unobtainable due to endotracheal tube Physical Exam Physical Exam: Constitutional: + obese, sedated and intubated Eyes: + anicteric sclerae ENMT: external ear and nose normal Neck: trachea midline Respiratory: Auscultation: + rhonchi; no wheezes Cardiovascular: RRR, no murmur, no edema Heart Sounds: normal S1 and normal S2 Extremities: + pedal edema (trace b/l) Gastrointestinal (Abdomen): normal bowel sounds, soft, nontender, no hepatosplenomegaly Musculoskeletal: Head/Neck/Chest: normocephalic and head atraumatic Skin: no rashes, warm and dry Psychiatric: sedated Results & Data Results & Data ([facility]) Vital Signs (Past 12 Hours) Vital Signs Temp Pulse Pulse Resp BP BP Pulse Ox 07/01/22 19:40 72 28 H 139/75 100 07/01/22 19:39 07/01/22 19:21 73 19 102/72 100 07/01/22 19:10 73 28 H 97 07/01/22 19:00 71 28 H 104/75 91 07/01/22 18:55 74/47 L 07/01/22 18:55 67 28 H 95 07/01/22 18:53 69 28 H 68/43 L 96 07/01/22 18:50 70 28 H 67/43 L 97 07/01/22 18:44 72 20 76/48 L 96 07/01/22 18:30 74 22 122/85 97 07/01/22 18:22 73 16 122/85 97 07/01/22 17:20 87 18 98 07/01/22 18:05 28 H 07/01/22 17:39 83 20 93 07/01/22 18:12 74 22 144/84 H 97 07/01/22 18:08 36.9 C 76 22 183/98 H 96 07/01/22 17:57 O2 Del Method FiO2 07/01/22 19:40 07/01/22 19:39 Mechanical Vent 07/01/22 19:21 Mechanical Vent 07/01/22 19:10 60 07/01/22 19:00 Mechanical Vent 07/01/22 18:55 07/01/22 18:55 Mechanical Vent 07/01/22 18:53 Mechanical Vent 07/01/22 18:50 Mechanical Vent 07/01/22 18:44 Mechanical Vent 60 07/01/22 18:30 Mechanical Vent 60 07/01/22 18:22 Mechanical Vent 07/01/22 17:20 90 07/01/22 18:05 07/01/22 17:39 80 07/01/22 18:12 Mechanical Vent 07/01/22 18:08 07/01/22 17:57 Mechanical Vent Critical Care Time Critical Care Time: Yes Total Critical Care Time: 35 PG Care Time/CCT Total # of Minutes Spent Total Time Spent with Patient: Total time spent is greater than 50% in coordination of care (as documented) at patient's floor/unit and/or counseling patient: Critical Care Time: Yes Total Critical Care Time: 35 Coding Level of Care Code 39770 Initial Inpt Care Lvl 3 Diagnoses Acute respiratory failure with hypoxia and hypercapnia J96.01; J96.02 Controlled type 2 diabetes mellitus E11.9 CKD (chronic kidney disease) stage 4, GFR 15-29 ml/min N18.4 Dyslipidemia E78.5 Hypertension I10 Acute exacerbation of chronic obstructive pulmonary disease (COPD) J44.1 Additional Codes Critical Care Time - Critical Care Time: Yes ([id number])
[2022-07-01] MEDS ORDERED: ALBUT/IPRATROP 3MG/0.5MG NEB 3 ML VIAL INH PRN (19:59)
[2022-07-01] MEDS ORDERED: PANTOprazole 40 MG TAB PO PRN (19:59)
[2022-07-01] MEDS ORDERED: PHARMACY GLYCEMIC MGMT CONSULT PRN (20:29)
[2022-07-01] MEDS ORDERED: GLUCOSE 10 TAB/TUBE PO PRN (20:45)
[2022-07-01] MEDS ORDERED: DEXTROSE 50% 50 ML SYRINGE IV PRN (20:45)
[2022-07-01] MEDS ORDERED: CARBOHYDRATES FOR HYPOGLYCEMIA PO PRN (20:45)
[2022-07-01] MEDS ORDERED: GLUCOSE 40% GEL 15 GM TUBE PO PRN (20:45)
[2022-07-01] MEDS ORDERED: GLUCAGON FOR INJ 1 MG VIAL IM PRN (20:45)
--- NOTE | 2022-07-01 20:46 | XRay Report ---
KUB CLINICAL HISTORY: Nasogastric tube placement. COMPARISON STUDY: KUB March 29, 2021. FINDINGS: Tip of nasogastric tube projects over the distal body of the stomach. Moderate amount stool within the left colon is partially imaged. Prominent gas-filled loop of bowel within the mid abdomen is present. Prominent epicardial fat pad is incidentally noted. Left basilar opacity favors atelecta sis with a bulla, as shown on prior chest CT. IMPRESSION: Tip of nasogastric tube within the distal body of the stomach. ACT 112: Negative or not required by law. Electronically signed by: Mike De Dios M.D. 07/01/2022 8:45 PM
[2022-07-01] MEDS ORDERED: NON-FORMULARY MEDICATION (Insulin Degludec [Tresiba Flextouch U-200] 200 unit/mL (3 mL) in SQ SCH (21:00)
[2022-07-01] MEDS ORDERED: NON-FORMULARY MEDICATION (Potassium Citrate 15 mEq tablet extended release) PO SCH (21:00)
--- NOTE | 2022-07-01 21:28 | Critical Care Consultation ---
Date of Consultation July 01, 2022 Assessment & Plan (1) Uncontrolled type 2 diabetes mellitus, with long-term current use of insulin: Last A1c 10.8 Management per primary (2) CKD (chronic kidney disease) stage 4, GFR 15-29 ml/min: Baseline 2.5-3.0, sees Nephrology as OP Takes his Lasix PRN rather than scheduled, may require diuresis 1L IVF while in ED, will hold on further IVF Daily BMP, replete electrolytes as needed UA pending (3) DVT prophylaxis: SQH, SCDs (4) Acute exacerbation of chronic obstructive pulmonary disease (COPD): Unknown precipitant but per report spouse was sick with URI last week, respiratory viral panel negative, will send tracheal cultures Seen by Dr. Wade as OP, noted to be relatively non-compliant with regimen though decently controlled disease Continue [employer] inhalers, scheduled DuoNeb, PRN Albuterol Add methylprednisolone 40mg IV QD CXR does not show obvious infiltrate, ETT adjusted for proper position ABG improved, follow EtCO2 Supervising Physician Co-Signing Physician Notes Patient seen and examined. EMR reviewed. Discussed with critical care ALVARO and agree with assessment plan as noted. Please refer to my progress note from 07/02/2022 for additional details. History of Present Illness Reason for Consultation: Acute on chronic mixed respiratory failure Attending Physician: Mauricio Gonzalez History of Present Illness Mr. Adonis Stephenson is a 71YO M with a history significant for hypertension, CAD s/p PCI (2010), CKDIV, IDDMII, obesity, SREEKANTH non-compliant with CPAP, COPD following with Dr. Wade, BPH, nephrolithiasis s/p ureteral dilation (2019) who presented to [facility] ED due to about 4 days of shortness of breath and cough. Per report, patient does not generally use his home oxygen as prescribed, but had been using it for the past few days due to his symptoms. Patient was somnolent in ED. ABG revealed severe hypercapnia, subsequently intubated. Post-gas was slightly improved. Received cefepime for empiric coverage. Imaging revealed possible LLL infiltrate vs effusion vs epicardial fat pad. He was admitted to ICU for continuation of care. Arrives to ICU intubated and sedated. Hemodynamically stable. Ventilator settings changed to avoid auto-peep. He responds to painful stimulus. ROS unable to be obtained due to clinical condition. Allergies Allergy/AdvReac Type Severity Reaction Status Date / Time azithromycin Allergy Mild diarrhea Verified 07/01/22 20:23 Home Medications Medication Instructions Recorded Confirmed Type cholecalciferol (vitamin D3) 25 1,000 unit PO BID 08/22/18 07/01/22 History mcg (1,000 unit) tablet (Vitamin D3) acetaminophen 325 mg tablet 650 mg PO TID PRN Pain 04/27/20 07/01/22 History aspirin 81 mg tablet,delayed 81 mg PO QPM 06/08/20 07/01/22 History release pantoprazole 40 mg tablet,delayed 40 mg PO DAILY PRN GERD #90 tabs 02/24/21 07/01/22 Rx release (Protonix) albuterol sulfate 0.63 mg/3 mL 0.63 mg continuous nebulization 03/27/21 07/01/22 History solution for nebulization QID PRN Shortness Of Breath Or Wheezing nystatin 100,000 unit/gram topical 1 applic topical BID PRN rash #30 04/05/21 07/01/22 Rx cream grams furosemide 20 mg tablet 20 mg PO DAILY PRN Edema 04/26/21 07/01/22 History atorvastatin 40 mg tablet (Lipitor) 40 mg PO HS #30 tabs 05/10/21 07/01/22 Rx finasteride 5 mg tablet (Proscar) 5 mg PO QAM #90 tabs 05/10/21 07/01/22 Rx menthol 0.44 %-zinc oxide 20.6 % 1 applic topical QID PRN skin 05/10/21 07/01/22 Rx topical ointment (Calmoseptine) irritation #113 grams insulin regular human 100 unit/mL 35 unit subcut BID 09/23/21 07/01/22 History injection solution (Novolin R Regular U-100 Insulin) Trulicity 1.5 mg/0.5 mL 1.5 mg (0.5 mL) subcut Q7D 90 days 11/03/21 07/01/22 Rx subcutaneous pen injector #12 SYRINGES (dulaglutide) gabapentin 300 mg capsule 300 mg PO BID #180 caps 12/17/21 07/01/22 Rx metoprolol tartrate 100 mg tablet 100 mg PO BID #180 tabs 12/17/21 07/01/22 Rx (Lopressor) insulin degludec 200 unit/mL (3 60 unit (0.3 mL) subcut HS #1 box 01/28/22 07/01/22 Rx mL) subcutaneous pen (Tresiba FlexTouch U-200 insulin) bupropion HCl 150 mg tablet,12 hr 150 mg PO BID 90 days #180 ea 03/23/22 07/01/22 Rx sustained-release clopidogrel 75 mg tablet 75 mg PO QAM #90 tabs 04/04/22 07/01/22 Rx ipratropium 0.5 mg-albuterol 3 mg 3 ml inhalation Q4 PRN wheezing 06/07/22 07/01/22 Rx (2.5 mg base)/3 mL nebulization #360 mL soln fluticasone furoate 100 1 inh inhalation DAILY #60 ea 06/27/22 07/01/22 Rx mcg-vilanterol 25 mcg/dose inhalation powder (Breo Ellipta) Patient History Medical History EDILMA (acute kidney injury) BPH (benign prostatic hyperplasia) CAD (coronary artery disease) Acute [place] 03/2011, complicated by 3 episodes of v fib requiring electrical shock- ZITA x2 Chronic kidney disease With recent EDILMA on CKD. COPD (chronic obstructive pulmonary disease) Severe, per pulm- 2L N/C prn Dyslipidemia GERD (gastroesophageal reflux disease) History of [place] (myocardial infarction) Acute [place] 03/2011, complicated by 3 episodes of v fib requiring electrical shock- ZITA x2 Hyperkalemia Hypertension Hypophosphatemia Morbid obesity with BMI of 40.0-44.9, adult Nephrolithiasis Admitted to [facility] for 7 mm L ureteral stone causing hydronephrosis/EDILMA Obstructive sleep apnea of adult Patient refuses CPAP. On anticoagulant therapy plavix daily On home oxygen therapy 2L N/C prn Peripheral neuropathy SBO (small bowel obstruction) current diagnosis--reason for scheduled colonoscopy Uncontrolled type 2 diabetes mellitus with diabetic neuropathy, with long-term current use of insulin UTI (urinary tract infection) Surgical History History of bilateral cataract extraction History of cardiac cath 2010- stents x2 History of carpal tunnel release right History of colonoscopy Colonoscopy: 03/18/19: MAC sedation at [facility] History of lithotripsy Left ESWL: 1/18/19: [place] [facility] [place] at [place]: 135.1[place]) History of lithotripsy Left ESWL 06/07/19 [facility] History of tooth extraction Hx of transurethral resection of prostate S/P cystoscopy with ureteral stent placement mulitple---last 04/16/20, 03/05/2020 08/23/2018. MAC. No issues. Family History Mother Family history of diabetes mellitus Coronary heart disease [place] Father Coronary heart disease [place] Myocardial infarction Other No family history of adverse response to anesthesia Denies family history of Ovarian cancer Prostate cancer Breast cancer Colorectal cancer Social History Smoking Status: Former smoker Tobacco Type: Cigarettes Age Started Using Tobacco: 16; Age Quit Using Tobacco: 62; Cigarettes Per Day: 20-30 a clinton; Smoking End Date: 10 years ago; Second Hand Exposure: No (family smoked); Tobacco Cessation Education Requested by Patient: No Hx Alcohol Use: No Hx Substance Use: No Preferred Language: Kyrgyz Communication Ability: Effective Visual Impairment: No Limitations Hearing Ability: Normal Cleaning Staff Supervisor Required: No Beliefs That Will Affect Care: None marital status: Current Living Situation: Spouse current occupational status: retired How many Children do You have: 3 Other Information That Helps Us Care for You: No Feels Safe at Home: Yes Safety Concerns: Feels Safe At This Time Childhood Exposure to Second-Hand Smoke: Yes caffeine: Yes (Tea and soda ) Dental Care, Regularly: Yes Physical Activity Frequency: Does not Exercise Seatbelt Use: sometimes Sunscreen Use: No Assistive Devices: Cane, Denture - Upper, Oxygen - Continuous and Walker Review of Systems Review of Systems: Unobtainable due to endotracheal tube Physical Exam Constitutional: Chronically-ill appearing elderly male Eyes: PERRL, conjunctivae normal, anicteric sclerae Respiratory: Rhonchi improved with suction, remains diminished to LLL Cardiovascular: Rate/Rhythm: regular rate and regular rhythm Heart Sounds: no murmur Extremities: + edema (2+ and chronic appearing, stasis changes bilaterally) Gastrointestinal (Abdomen): normal bowel sounds, soft, nontender, no hepatosplenomegaly Skin: Stasis changes in BLE without signs of cellulitis Neurologic: No focal deficits noted Results & Data Results & Data ([facility]) Vital Signs (Past 12 Hours) Vital Signs Temp Pulse Pulse Resp BP BP Pulse Ox 07/01/22 21:13 71 36 H 98 07/01/22 20:11 68 28 H 119/73 99 07/01/22 19:40 72 28 H 139/75 100 07/01/22 19:39 07/01/22 19:21 73 19 102/72 100 07/01/22 19:10 73 28 H 97 07/01/22 19:00 71 28 H 104/75 91 07/01/22 18:55 74/47 L 07/01/22 18:55 67 28 H 95 07/01/22 18:53 69 28 H 68/43 L 96 07/01/22 18:50 70 28 H 67/43 L 97 07/01/22 18:44 72 20 76/48 L 96 07/01/22 18:30 74 22 122/85 97 07/01/22 18:22 73 16 122/85 97 07/01/22 17:20 87 18 98 07/01/22 18:05 28 H 07/01/22 17:39 83 20 93 07/01/22 18:12 74 22 144/84 H 97 07/01/22 18:08 36.9 C 76 22 183/98 H 96 07/01/22 17:57 O2 Del Method FiO2 07/01/22 21:13 40 07/01/22 20:11 Mechanical Vent 07/01/22 19:40 07/01/22 19:39 Mechanical Vent 07/01/22 19:21 Mechanical Vent 07/01/22 19:10 60 07/01/22 19:00 Mechanical Vent 07/01/22 18:55 07/01/22 18:55 Mechanical Vent 07/01/22 18:53 Mechanical Vent 07/01/22 18:50 Mechanical Vent 07/01/22 18:44 Mechanical Vent 60 07/01/22 18:30 Mechanical Vent 60 07/01/22 18:22 Mechanical Vent 07/01/22 17:20 90 07/01/22 18:05 07/01/22 17:39 80 07/01/22 18:12 Mechanical Vent 07/01/22 18:08 07/01/22 17:57 Mechanical Vent Coding Level of Care Code 58371 Inpt Consult Level 1 Diagnoses Uncontrolled type 2 diabetes mellitus, with long-term current use of insulin CKD (chronic kidney disease) stage 4, GFR 15-29 ml/min N18.4 DVT prophylaxis Z29.9 Acute exacerbation of chronic obstructive pulmonary disease (COPD) J44.1 Time Spent (min) 35
--- NOTE | 2022-07-01 21:54 | XRay Report ---
XR chest 1V portable CLINICAL HISTORY: ETT adjusted COMPARISON STUDY: Chest radiograph performed earlier today. Chest CT March 07, 2022. FINDINGS: Tip of endotracheal tube is 3.8 cm above the dolores. Tip of nasogastric tube is within the stomach and bladder depicted on recent KUB. There is no pneumothorax or pleural effusion. Left basila r opacity represents epicardial fat-pad. There is a left basilar bulla. There may be minimal left mid lung opacity. IMPRESSION: 1. Satisfactory positioning of the endotracheal and nasogastric tubes. 2. No pneumothorax. 3. Minimal left midlung opacity. Radiographic follow-up is recommended to ensure resolution. ACT 112: Negative or not required by law. Electronically signed by: Mike De Dios M.D. 07/01/2022 9:51 PM
[2022-07-01] MEDS: methylPREDNISolone 40 MG in SYRINGE 0 ML IV SCH (21:56)
[2022-07-01] MEDS ORDERED: methylPREDNISolone 40 MG in SYRINGE 0 ML IV SCH (22:00)
[2022-07-01 22:02] LABS: iSTAT Allen Test Pass; iSTAT Arterial Blood Gas HCO3 27 meg/L (19-24); iSTAT Arterial Blood Gas pCO2 47 mmHg (35-46); iSTAT Arterial Blood Gas pH 7.37 (7.35-7.45); iSTAT Arterial Blood Gas pO2 98 mmHg (80-95); iSTAT Carbon Dioxide 28 mmol/L (24-31); iSTAT FiO2 40 %; iSTAT Site L Radial
[2022-07-01] MEDS ORDERED: ALBUTEROL 0.083% NEBU SOLN 3 ML VIAL NEB PRN (22:46)
[2022-07-01] MEDS ORDERED: ALBUT/IPRATROP 3MG/0.5MG NEB 3 ML VIAL NEB SCH (23:00)
[2022-07-01] MEDS: ATORVASTATIN 40 MG TAB PO SCH (23:30)
[2022-07-01] MEDS: GABAPENTIN 250 MG/5 ML 470 ML BTL PO SCH (23:30)
[2022-07-01] MEDS: CHOLECALCIFEROL 1,000 UNITS 25 MCG TAB PO SCH (23:30)
[2022-07-01] MEDS: METOPROLOL TARTRATE 100 MG TAB PO SCH (23:30)
[2022-07-01] MEDS: ASPIRIN 81 MG CHEW PO SCH (23:32)
[2022-07-01] MEDS: INSULIN ASPART PER UNIT SC SCH (23:42)
[2022-07-02] MEDS: propofoL 1,000 MG/100 ML VIAL IV SCH ×4 (00:09→09:39)
[2022-07-02] MEDS ORDERED: DOXYCYCLINE HYCLATE 100 MG in DEXTROSE 5% 100 ML IV SCH (01:00)
[2022-07-02] MEDS: INSULIN ASPART PER UNIT SC SCH ×5 (04:14→20:13)
[2022-07-02 04:27] LABS: iSTAT Allen Test Pass; iSTAT Arterial Blood Gas HCO3 29 meg/L (19-24); iSTAT Arterial Blood Gas pCO2 48 mmHg (35-46); iSTAT Arterial Blood Gas pO2 71 mmHg (80-95); iSTAT Carbon Dioxide 31 mmol/L (24-31); iSTAT FiO2 40 %; iSTAT Site L Radial
[2022-07-02] MEDS: ALBUT/IPRATROP 3MG/0.5MG NEB 3 ML VIAL NEB SCH ×4 (04:31→19:47)
[2022-07-02 05:26] LABS: Basophils # (auto) 0.04 K/uL (0-0.2); Basophils % (auto) 0.4 %; Eosinophils # (auto) 0.01 K/uL (0-0.50); Eosinophils % (auto) 0.1 %; Hematocrit (blood only) 40.9 % (40.1-51.0); Hemoglobin 12.9 g/dl (14.0-18.0); Immature Granulocytes # (auto) 0.13 K/uL (0.00-0.02); Immature Granulocytes % (auto) 1.3 %; Lymphocytes # (auto) 0.52 K/uL (1.2-3.4); Lymphocytes % (auto) 5.1 %; Mean Corpuscular Hemoglobin 30.3 pg (25.0-34.0); Mean Corpuscular Hgb Conc 31.5 g/dL (32.0-36.0); Mean Platelet Volume 9.7 fL (9.4-12.4); Monocytes # (auto) 0.85 K/uL (0.24-0.82); Monocytes % (auto) 8.4 %; Neutrophils # (auto) 8.55 K/uL (1.4-6.5); Neutrophils % (auto) 84.7 %; Platelet Count 182 K/uL (130-400); RDW Coefficient of Variation 14.3 % (11.5-14.5); RDW Standard Deviation 50.1 fL (36.4-46.3); Red Blood Count 4.26 M/uL (4.63-6.08)
[2022-07-02 05:48] LABS: BUN Creatinine Ratio 13.3 (10-20); Calcium 8.8 mg/dl (8.5-10.1); Creatinine Clr Calc Pharmacy 46.5 ml/min; Est GFR (African American) 36.1 ml/min; Est GFR (Non-African American) 31.2 ml/min; Magnesium 1.8 mg/dl (1.7-2.4); Phosphorus 2.6 mg/dl (2.5-4.9); Potassium 3.8 mmol/L (3.5-5.1)
[2022-07-02] MEDS: BUDESONIDE 0.5 MG/2 ML VIAL (PULMICORT) NEB SCH ×2 (07:34→19:46)
[2022-07-02] MEDS: CHOLECALCIFEROL 1,000 UNITS 25 MCG TAB PO SCH ×2 (08:37→20:39)
[2022-07-02] MEDS: METOPROLOL TARTRATE 100 MG TAB PO SCH ×2 (08:37→20:38)
[2022-07-02] MEDS: GABAPENTIN 250 MG/5 ML 470 ML BTL PO SCH (08:37)
[2022-07-02] MEDS: methylPREDNISolone 40 MG in SYRINGE 0 ML IV SCH (08:37)
[2022-07-02] MEDS: CLOPIDOGREL BISULFATE 75 MG TAB PO SCH (08:37)
[2022-07-02] MEDS: LANTUS PER UNIT CHARGE SQ SCH ×2 (08:45→20:13)
[2022-07-02] MEDS ORDERED: NovoLIN-R INSULIN PER UNIT CHARGE SQ SCH (09:00)
[2022-07-02] MEDS ORDERED: FLUTICASONE/VILANTEROL 100/25MCG 14 PUFFS/INHALER INH SCH (09:00)
--- NOTE | 2022-07-02 09:43 | Critical Care Progress Note ---
Date of Service July 02, 2022 Assessment & Plan (1) Acute respiratory failure with hypoxia and hypercapnia: (2) Acute exacerbation of chronic obstructive pulmonary disease (COPD): (3) CKD (chronic kidney disease) stage 4, GFR 15-29 ml/min: (4) Obesity: Plan Impression: 71-year-old male with obstructive lung disease and sleep disordered breathing (overlap syndrome) admitted with hypercarbic respiratory failure requiring intubation mechanical ventilation. 24-hour events: Patient was intubated in the ER and transferred to the ICU. Has been hemodynamically stable overnight. His blood gas has normalized. Recommendations: 1. Neurologic: Will produce sedation break today to assess whether or not the patient is appropriate for ventilator liberation. Avoid use of respiratory suppressant medications. May require noninvasive positive pressure ventilation at extubation although the patient has been reluctant to use this in the past. Restart bupropion 2. Respiratory: Hypercarbic respiratory failure: Unclear precipitant. The patient clearly has sleep disordered breathing but has declined evaluation and therapy in the past. Hopefully can pursue trial of extubation. May need nocturnal positive airway pressure to avoid recurrent events. He is not overtly bronchospastic now. We will likely be able to decrease prednisone. No clear signs of COPD exacerbation currently so we will hold antibiotics. 3. Cardiovascular: Patient's hemodynamically stable. Continue Lipitor aspirin Plavix. Continue metoprolol. Gentle diuresis as tolerated. 4. Renal: Kidney function appears to be at baseline. Acid-base status acceptable. ICU electrolyte replacement as needed. 5. GI: Will assess to initiate nutrition once the patient is liberated from mechanical ventilator. 6. ID: No current issues. Continue to follow clinically. 7. Heme-onc: No current issues. DVT prophylaxis initiated. 8. Endocrine: Glycemic control per protocol. Discussed with ICU nurse and respiratory therapy at bedside. A total of 40 minutes spent evaluating managing and stabilizing patient to this point. No family immediately available. Admission and Anticipated Discharge Date Admission Date: July 01, 2022 Subjective Patient is intubated and sedated Review of Systems Review of Systems: Unobtainable due to endotracheal tube Physical Exam Constitutional: + morbidly obese and + mechanically ventilated Neck: trachea midline, no thyromegaly Respiratory: normal respiratory effort, lungs clear to auscultation Cardiovascular: RRR, no murmur, no edema Gastrointestinal (Abdomen): normal bowel sounds, soft, nontender, no hepatosplenomegaly Musculoskeletal: Extremities: extremities normal to inspection Skin: no rashes, warm and dry Neurologic: Nonfocal exam Lymphatic: no cervical lymphadenopathy Results & Data Results & Data ([facility]) Vital Signs (Past 12 Hours) Vital Signs Temp Pulse Pulse Pulse Resp BP BP 07/02/22 09:21 07/02/22 08:01 37.7 C H 80 17 115/54 L 07/02/22 08:00 79 07/02/22 08:00 07/02/22 07:35 74 15 07/02/22 07:00 07/02/22 07:00 07/02/22 07:09 37.6 C H 74 17 113/62 07/02/22 06:01 143/78 H 07/02/22 06:01 37.5 C 77 14 07/02/22 06:00 37.5 C 78 10 L 07/02/22 05:00 37.4 C 75 12 07/02/22 05:00 121/62 07/02/22 04:10 72 14 07/02/22 02:30 16 07/02/22 04:01 37.4 C 73 16 07/02/22 04:01 97/54 L 07/02/22 04:00 37.4 C 73 16 07/02/22 03:01 37.3 C 76 16 07/02/22 03:01 109/59 L 07/02/22 03:00 37.3 C 74 16 07/02/22 02:01 37.2 C 75 18 07/02/22 02:01 112/64 07/02/22 02:00 37.2 C 75 18 07/02/22 01:01 36.9 C 72 18 07/02/22 01:01 115/67 07/02/22 01:00 36.9 C 73 18 07/02/22 04:00 07/02/22 00:21 70 18 07/02/22 00:00 36.9 C 70 18 07/02/22 00:00 116/64 07/01/22 23:01 37.0 C 69 18 07/01/22 23:01 85/56 L 07/01/22 23:00 37.0 C 68 18 07/01/22 22:01 37.0 C 70 16 07/01/22 22:01 88/64 L 07/01/22 22:00 37.0 C 72 18 07/01/22 21:52 37.0 C 71 15 07/01/22 21:52 97/66 L 07/01/22 23:47 07/01/22 23:47 69 07/01/22 22:07 71 18 Pulse Ox O2 Del Method FiO2 07/02/22 09:21 Mechanical Vent 40 07/02/22 08:01 94 Mechanical Vent 40 07/02/22 08:00 07/02/22 08:00 Mechanical Vent 40 07/02/22 07:35 94 40 07/02/22 07:00 Mechanical Vent 40 07/02/22 07:00 40 07/02/22 07:09 95 Mechanical Vent 40 07/02/22 06:01 07/02/22 06:01 94 07/02/22 06:00 95 07/02/22 05:00 95 07/02/22 05:00 07/02/22 04:10 95 40 07/02/22 02:30 40 07/02/22 04:01 96 07/02/22 04:01 07/02/22 04:00 96 07/02/22 03:01 97 07/02/22 03:01 07/02/22 03:00 97 07/02/22 02:01 98 07/02/22 02:01 07/02/22 02:00 98 07/02/22 01:01 91 07/02/22 01:01 07/02/22 01:00 90 07/02/22 04:00 40 07/02/22 00:21 100 Mechanical Vent 40 07/02/22 00:00 100 07/02/22 00:00 07/01/22 23:01 99 07/01/22 23:01 07/01/22 23:00 99 07/01/22 22:01 99 07/01/22 22:01 07/01/22 22:00 99 07/01/22 21:52 98 07/01/22 21:52 07/01/22 23:47 40 07/01/22 23:47 07/01/22 22:07 97 40 Critical Care Results & Data Vital Signs (Past 12 Hours) Vital Signs Temp Pulse Pulse Pulse Resp BP BP 07/02/22 09:21 07/02/22 08:01 37.7 C H 80 17 115/54 L 07/02/22 08:00 79 07/02/22 08:00 07/02/22 07:35 74 15 07/02/22 07:00 07/02/22 07:00 07/02/22 07:09 37.6 C H 74 17 113/62 07/02/22 06:01 143/78 H 07/02/22 06:01 37.5 C 77 14 07/02/22 06:00 37.5 C 78 10 L 07/02/22 05:00 37.4 C 75 12 07/02/22 05:00 121/62 07/02/22 04:10 72 14 07/02/22 02:30 16 07/02/22 04:01 37.4 C 73 16 07/02/22 04:01 97/54 L 07/02/22 04:00 37.4 C 73 16 07/02/22 03:01 37.3 C 76 16 07/02/22 03:01 109/59 L 07/02/22 03:00 37.3 C 74 16 07/02/22 02:01 37.2 C 75 18 07/02/22 02:01 112/64 07/02/22 02:00 37.2 C 75 18 07/02/22 01:01 36.9 C 72 18 07/02/22 01:01 115/67 07/02/22 01:00 36.9 C 73 18 07/02/22 04:00 07/02/22 00:21 70 18 07/02/22 00:00 36.9 C 70 18 07/02/22 00:00 116/64 07/01/22 23:01 37.0 C 69 18 07/01/22 23:01 85/56 L 07/01/22 23:00 37.0 C 68 18 07/01/22 22:01 37.0 C 70 16 07/01/22 22:01 88/64 L 07/01/22 22:00 37.0 C 72 18 07/01/22 21:52 37.0 C 71 15 07/01/22 21:52 97/66 L 07/01/22 23:47 07/01/22 23:47 69 07/01/22 22:07 71 18 Pulse Ox O2 Del Method FiO2 07/02/22 09:21 Mechanical Vent 40 07/02/22 08:01 94 Mechanical Vent 40 07/02/22 08:00 07/02/22 08:00 Mechanical Vent 40 07/02/22 07:35 94 40 07/02/22 07:00 Mechanical Vent 40 07/02/22 07:00 40 07/02/22 07:09 95 Mechanical Vent 40 07/02/22 06:01 07/02/22 06:01 94 07/02/22 06:00 95 07/02/22 05:00 95 07/02/22 05:00 07/02/22 04:10 95 40 07/02/22 02:30 40 07/02/22 04:01 96 07/02/22 04:01 07/02/22 04:00 96 07/02/22 03:01 97 07/02/22 03:01 07/02/22 03:00 97 07/02/22 02:01 98 07/02/22 02:01 07/02/22 02:00 98 07/02/22 01:01 91 07/02/22 01:01 07/02/22 01:00 90 07/02/22 04:00 40 07/02/22 00:21 100 Mechanical Vent 40 07/02/22 00:00 100 07/02/22 00:00 07/01/22 23:01 99 07/01/22 23:01 07/01/22 23:00 99 07/01/22 22:01 99 07/01/22 22:01 07/01/22 22:00 99 07/01/22 21:52 98 07/01/22 21:52 07/01/22 23:47 40 07/01/22 23:47 07/01/22 22:07 97 40 Lab & Micro Results (Past 24 Hours) RBC 4.26 M/uL (4.63-6.08) L 07/02/22 WBC 10.10 K/ul (4.8-10.8) 07/02/22 Hgb 12.9 g/dl (14.0-18.0) L 07/02/22 Hct 40.9 % (40.1-51.0) 07/02/22 MCV 96.0 fL (80.0-100.0) 07/02/22 MCH 30.3 pg (25.0-34.0) 07/02/22 MCHC 31.5 g/dL (32.0-36.0) L 07/02/22 RDW Standard Deviation 50.1 fL (36.4-46.3) H 07/02/22 RDW Coefficient of Variation 14.3 % (11.5-14.5) 07/02/22 Plt Count 182 K/uL (130-400) 07/02/22 MPV 9.7 fL (9.4-12.4) 07/02/22 Nucleated Red Blood Cells % (auto) 0.2 % 07/01 Nucleated RBC Absolute Count (auto) 0.02 K/uL (0-0) H 12/17 Neutrophils (%) (Auto) 84.7 % 07/02/22 Lymphocytes (%) (Auto) 5.1 % 07/02/22 Monocytes # (Auto) 0.85 K/uL (0.24-0.82) H 07/02/22 Eosinophils # (Auto) 0.01 K/uL (0-0.50) 07/02/22 Immature Granulocyte % (Auto) 1.3 % 07/02/22 Neutrophils # (Auto) 8.55 K/uL (1.4-6.5) H 07/02/22 Lymphocytes # (Auto) 0.52 K/uL (1.2-3.4) L 07/02/22 Monocytes # (Auto) 0.85 K/uL (0.24-0.82) H 07/02/22 Eosinophils # (Auto) 0.01 K/uL (0-0.50) 07/02/22 Basophils # (Auto) 0.04 K/uL (0-0.2) 07/02/22 Immature Granulocyte # (Auto) 0.13 K/uL (0.00-0.02) H 07/02 Na 141 mmol/L (136-145) 07/02/22 K 3.8 mmol/L (3.5-5.1) 07/02/22 Cl 106 mmol/L (98-107) 07/02/22 CO2 28 mmol/L (21-32) 07/02/22 Anion Gap 7 (3-11) 07/02/22 BUN 28 mg/dl (6-23) H 07/02/22 Creatinine 2.10 mg/dl (0.6-1.4) H 07/02/22 Estimated GFR ( Amer) 36.1 ml/min 07/02/22 Estimated GFR (Non-Af Amer) 31.2 ml/min 07/02/22 BUN/Creatinine Ratio 13.3 (10-20) 07/02/22 Glu 211 mg/dl (70-99(Fasting)) H 07/02/22 Ca 8.8 mg/dl (8.5-10.1) 07/02/22 Phosphorus Level 2.6 mg/dl (2.5-4.9) 07/02/22 Total Bilirubin 0.5 mg/dl (0.2-1.0) 07/01/22 AST 20 U/L (13-39) 07/01/22 ALT 21 U/L (7-52) 07/01/22 Alkaline Phosphatase 117 U/L (34-104) H 07/01/22 TP 7.6 gm/dl (6.0-8.3) 07/01/22 Albumin 3.5 gm/dl (3.4-5.0) 07/01/22 Globulin 4.1 gm/dl (2.5-4.0) H 07/01/22 Albumin/Globulin Ratio 0.9 (0.9-2) 07/01/22 Mg 1.8 mg/dl (1.7-2.4) 07/02/22 04:56 Calcium Level 8.8 mg/dl (8.5-10.1) 07/02/22 04:56 Yayo Test Pass 07/02/22 04:12 Microbiology 07/01/22 22:20 Gram Stain - Final Sputum,Vent Suction Diagnostic Findings (Past 24 Hours) Chest X-Ray 07/01/22 17:19 XR chest 1V portable CLINICAL HISTORY: Chest Pain TECHNIQUE: Single frontal radiograph of the chest was obtained. Comparison: Comparison is made to chest radiograph 06/27/[address] chest 03/07/2022 FINDINGS: Endotracheal tube terminates 21 mm from the dolores. Cardiomegaly is noted. Left basilar opacity is again seen. No pneumothorax. A left pleural effusion cannot be entirely excluded. A left lung base bleb is noted. IMPRESSION: 1. A left basilar opacity is seen. This likely reflects epicardial fat pad with or without superimposed atelectasis, aspiration, and/or pneumonia. 2. Cannot exclude left pleural effusion. ACT 112: Negative or not required by law. Electronically signed by: Agustín Hayes M.D. 07/01/2022 5:58 PM KUB X-Ray 07/01/22 20:22 KUB CLINICAL HISTORY: Nasogastric tube placement. COMPARISON STUDY: KUB March 29, 2021. FINDINGS: Tip of nasogastric tube projects over the distal body of the stomach. Moderate amount stool within the left colon is partially imaged. Prominent gas- filled loop of bowel within the mid abdomen is present. Prominent epicardial fat pad is incidentally noted. Left basilar opacity favors atelectasis with a bulla, as shown on prior chest CT. IMPRESSION: Tip of nasogastric tube within the distal body of the stomach. ACT 112: Negative or not required by law. Electronically signed by: Mike De Dios M.D. 07/01/2022 8:45 PM Chest X-Ray 07/01/22 21:30 XR chest 1V portable CLINICAL HISTORY: ETT adjusted COMPARISON STUDY: Chest radiograph performed earlier today. Chest CT March 07, 2022. FINDINGS: Tip of endotracheal tube is 3.8 cm above the dolores. Tip of nasogastric tube is within the stomach and bladder depicted on recent KUB. There is no pneumothorax or pleural effusion. Left basilar opacity represents epicardial fat-pad. There is a left basilar bulla. There may be minimal left midlung opacity. IMPRESSION: 1. Satisfactory positioning of the endotracheal and nasogastric tubes. 2. No pneumothorax. 3. Minimal left midlung opacity. Radiographic follow-up is recommended to ensure resolution. ACT 112: Negative or not required by law. Electronically signed by: Mike De Dios M.D. 07/01/2022 9:51 PM I & O Totals 24 Hours 07/01/22 07/02/22 07/03/22 06:59 06:59 05:59 Intake Total 1440.783 / 1461.033 77.925 / 77.925 Output Total 300 / 300 60 / 60 Balance 1140.783 / 1161.033 17.925 / 17.925 Cumulative 07/01/22 17:00 thru 07/02/22 09:32 Intake Total 1518.708 Output Total 360 Balance 1158.708 RT Ventilator Mngmt (Last Documented) Ventilator Ordered Settings Ventilator Support Mode SIMV 07/02/22 08:00 Respiratory Rate 17 07/02/22 08:01 Ventilator Tidal Volume 450 07/02/22 08:00 Setting Minute Ventilation 6.6 07/02/22 07:35 Ventilator Positive Pressure 10 07/02/22 07:35 Support Setting Positive End Expiratory 5 07/02/22 08:00 Pressure Fraction of Inspired Oxygen 40 07/02/22 09:21 Machine Comment Weaned to 50% 07/01/22 19:10 Ventilator - PT Measurements Respiratory Rate 17 Exhaled Tidal Volume 450 Minute Ventilation 6.6 Peak Inspiratory Airway 22 Pressure Plateau Pressure 14.6 Respiratory Cycle Inspiratory: 1:5.1 Expiratory Ratio Inspiratory Phase Time 0.70 End-Tidal CO2 45 Static Lung Compliance 46.88 Dynamic Lung Compliance 26.47 Normal Static Lung Compliance 47.00 Patient Measurements Comment ETT at 27-26cm bottom lip, (25cm at teeth). will look at morning CXR to confirm placement of ETT Coding Level of Care Code 68471 Subseq [facility] 3 Diagnoses Acute respiratory failure with hypoxia and hypercapnia J96.01; J96.02 Acute exacerbation of chronic obstructive pulmonary disease (COPD) J44.1 CKD (chronic kidney disease) stage 4, GFR 15-29 ml/min N18.4 Obesity E66.9
--- NOTE | 2022-07-02 09:47 | XRay Report ---
XR chest 1V portable CLINICAL HISTORY: resp failure TECHNIQUE: Single frontal radiograph of the chest was obtained. Comparison: Comparison is made to chest radiograph 07/01/2022 FINDINGS: Exam is limited by underpenetration. Interval stability of endotracheal tube placement. Enteric tube is not well seen but appears unremarkable. The cardiomediastinal silhouette is stable. Left retrocard iac airspace opacity. Previously noted left lung bulla is unchanged. Blunting of the left costophreni c angle compatible with moderate pleural effusion. IMPRESSION: 1. Lines and tubes are stable. 2. Interval increase in left retrocardiac opacity which may reflect atelectasis, pneumonia, and/or a spiration. 3. Likely moderate left pleural effusion. ACT 112: Negative or not required by law. Electronically signed by: Agustín Hayes M.D. 07/02/2022 9:45 AM
[2022-07-02] MEDS ORDERED: FUROSEMIDE 40 MG/4 ML VIAL IV ONE (10:24)
[2022-07-02] MEDS: FORMOTEROL 20 MCG/2 ML VIAL NEB SCH ×2 (10:52→19:46)
[2022-07-02] MEDS: ICU ELECTROLYTE REPLACEMENT PROTOCOL SCH (11:45)
--- NOTE | 2022-07-02 12:02 | Hospitalist Progress Note ---
Date of Service July 02, 2022 Assessment & Plan (1) Acute respiratory failure with hypoxia and hypercapnia: Plan: Patient intubated acute respiratory failure with hypoxia and hypercapnia. Appears patient is not compliant with his home meds as per book binder. Patient placed on cefepime intially. Critical care/pulmonary does not believe this to be COPD exacerbation, antibiotics are held. will try to wean patient off sedation and perform a trial for extubation later on 07/02 BIOFIRE negative. COVID negative steroids added. Inhalers ordered. Update: Patient was extubated successfully, will monitor for 24 hours. (2) Controlled type 2 diabetes mellitus: Plan: consulted glycemic control Placed on insulin ICU protocol (3) CKD (chronic kidney disease) stage 4, GFR 15-29 ml/min: Plan: creatinine appears to be at baseline (4) Dyslipidemia: Plan: resume atorvastatin (5) Hypertension: Plan: resume home meds (6) Acute exacerbation of chronic obstructive pulmonary disease (COPD): Plan: as stated above. Admission and Anticipated Discharge Date Admission Date: July 01, 2022 Subjective Patient intubated and sedated. Review of Systems Review of Systems: Unobtainable due to cognitive status Physical Exam Physical Exam: Constitutional: + obese, sedated and intubated Eyes: + anicteric sclerae ENMT: external ear and nose normal Neck: trachea midline Respiratory: Auscultation: + rhonchi; no wheezes Cardiovascular: RRR, no murmur, no edema Heart Sounds: normal S1 and normal S2 Extremities: + pedal edema (trace b/l) Gastrointestinal (Abdomen): normal bowel sounds, soft, nontender, no hepatosplenomegaly Musculoskeletal: Head/Neck/Chest: normocephalic and head atraumatic Skin: no rashes, warm and dry Psychiatric: sedated Results & Data Results & Data ([facility]) Vital Signs (Past 12 Hours) Vital Signs Temp Pulse Pulse Pulse Resp BP BP 07/02/22 11:31 37.6 C H 77 23 137/97 07/02/22 11:01 37.7 C H 78 21 153/84 H 07/02/22 10:49 37.7 C H 80 20 152/87 H 07/02/22 10:31 37.6 C H 78 16 160/91 H 07/02/22 10:30 37.6 C H 76 14 07/02/22 10:52 79 20 07/02/22 10:01 37.7 C H 69 16 119/60 07/02/22 09:58 37.7 C H 70 17 116/61 07/02/22 09:00 37.7 C H 79 18 131/65 07/02/22 09:27 69 18 07/02/22 09:21 07/02/22 08:01 37.7 C H 80 17 115/54 L 07/02/22 08:00 79 07/02/22 08:00 07/02/22 07:35 74 15 07/02/22 07:00 07/02/22 07:00 07/02/22 07:09 37.6 C H 74 17 113/62 07/02/22 06:01 143/78 H 07/02/22 06:01 37.5 C 77 14 07/02/22 06:00 37.5 C 78 10 L 07/02/22 05:00 37.4 C 75 12 07/02/22 05:00 121/62 07/02/22 04:10 72 14 07/02/22 02:30 16 07/02/22 04:01 37.4 C 73 16 07/02/22 04:01 97/54 L 07/02/22 04:00 37.4 C 73 16 07/02/22 03:01 37.3 C 76 16 07/02/22 03:01 109/59 L 07/02/22 03:00 37.3 C 74 16 07/02/22 02:01 37.2 C 75 18 07/02/22 02:01 112/64 07/02/22 02:00 37.2 C 75 18 07/02/22 01:01 36.9 C 72 18 07/02/22 01:01 115/67 07/02/22 01:00 36.9 C 73 18 07/02/22 04:00 07/02/22 00:21 70 18 Pulse Ox O2 Del Method O2 Flow Rate FiO2 07/02/22 11:31 92 Nasal Cannula 2 07/02/22 11:01 96 Nasal Cannula 2 07/02/22 10:49 95 Nasal Cannula 2 07/02/22 10:31 96 07/02/22 10:30 96 07/02/22 10:52 95 Nasal Cannula 4 07/02/22 10:01 95 CPAP, Mechanical Vent 40 07/02/22 09:58 95 CPAP, Mechanical Vent 40 07/02/22 09:00 92 Mechanical Vent 40 07/02/22 09:27 95 07/02/22 09:21 Mechanical Vent 40 07/02/22 08:01 94 Mechanical Vent 40 07/02/22 08:00 07/02/22 08:00 Mechanical Vent 40 07/02/22 07:35 94 40 07/02/22 07:00 Mechanical Vent 40 07/02/22 07:00 40 07/02/22 07:09 95 Mechanical Vent 40 07/02/22 06:01 07/02/22 06:01 94 07/02/22 06:00 95 07/02/22 05:00 95 07/02/22 05:00 07/02/22 04:10 95 40 07/02/22 02:30 40 07/02/22 04:01 96 07/02/22 04:01 07/02/22 04:00 96 07/02/22 03:01 97 07/02/22 03:01 07/02/22 03:00 97 07/02/22 02:01 98 07/02/22 02:01 07/02/22 02:00 98 07/02/22 01:01 91 07/02/22 01:01 07/02/22 01:00 90 07/02/22 04:00 40 07/02/22 00:21 100 Mechanical Vent 40 PG Care Time/CCT Total # of Minutes Spent Total Time Spent with Patient: Total time spent is greater than 50% in coordination of care (as documented) at patient's floor/unit and/or counseling patient: Coding Level of Care Code 54170 Subseq [facility] L[facility] 2 Diagnoses Acute respiratory failure with hypoxia and hypercapnia J96.01; J96.02 Controlled type 2 diabetes mellitus E11.9 CKD (chronic kidney disease) stage 4, GFR 15-29 ml/min N18.4 Dyslipidemia E78.5 Hypertension I10 Acute exacerbation of chronic obstructive pulmonary disease (COPD) J44.1 Time Spent (min) 25
[2022-07-02] MEDS: MAGNESIUM SULFATE / D5W 1 GM/100 ML BAG IV SCH ×2 (12:09→13:52)
[2022-07-02] MEDS: POTASSIUM CHLORIDE / WTR 10 MEQ/100 ML PLCT IV SCH ×4 (12:09→15:07)
--- NOTE | 2022-07-02 12:48 | Electrocardiogram Report ---
Test Reason : Blood Pressure : / mmHG Vent. Rate : 077 BPM Atrial Rate : 077 BPM P-R Int : 146 ms QRS Dur : 090 ms QT Int : 406 ms P-R-T Axes : 071 -24 015 degrees QTc Int : 459 ms Normal sinus rhythm Nonspecific ST abnormality Abnormal ECG When compared with ECG of 27-JUN-2021 20:26, No significant change was found Confirmed by Salas Plummer ([id number]) on 07/02/2022 12:47:56 PM Referred By: REFERRED SELF Confirmed By:Salas Plummer
--- NOTE | 2022-07-02 12:54 | Electrocardiogram Report ---
Test Reason : Blood Pressure : / mmHG Vent. Rate : 068 BPM Atrial Rate : 068 BPM P-R Int : 138 ms QRS Dur : 086 ms QT Int : 420 ms P-R-T Axes : 083 -19 010 degrees QTc Int : 446 ms Normal sinus rhythm Inferior infarct , age undetermined Nonspecific T wave abnormality Abnormal ECG When compared with ECG of 01-JUL-2022 17:54, (unconfirmed) No significant change was found Confirmed by Salas Plummer ([id number]) on 07/02/2022 12:54:14 PM Referred By: REFERRED SELF Confirmed By:Salas Plummer
[2022-07-02] MEDS: HEPARIN SOD 5,000 UNIT/0.5 ML VIAL SQ SCH ×2 (13:53→20:38)
[2022-07-02] MEDS: CHLORASEPTIC 1.4% SOLN 180 ML BTL MT PRN ×2 (16:43→20:40)
[2022-07-02] MEDS ORDERED: Nursing to Pharmacy Communication SCH (20:15)
[2022-07-02] MEDS: ASPIRIN 81 MG CHEW PO SCH (20:35)
[2022-07-02] MEDS: GABAPENTIN 300 MG CAP PO SCH (20:37)
[2022-07-02] MEDS: ATORVASTATIN 40 MG TAB PO SCH (20:39)
[2022-07-02] MEDS: buPROPion SR 150 MG TABCR PO SCH (20:39)
[2022-07-03] MEDS: INSULIN ASPART PER UNIT SC SCH ×6 (00:21→21:57)
[2022-07-03] MEDS: ALBUT/IPRATROP 3MG/0.5MG NEB 3 ML VIAL NEB SCH ×4 (00:25→20:01)
[2022-07-03 04:11] LABS: Basophils # (auto) 0.08 K/uL (0-0.2); Basophils % (auto) 0.8 %; Eosinophils # (auto) 0.08 K/uL (0-0.50); Eosinophils % (auto) 0.8 %; Hematocrit (blood only) 45.4 % (40.1-51.0); Hemoglobin 14.1 g/dl (14.0-18.0); Immature Granulocytes # (auto) 0.28 K/uL (0.00-0.02); Immature Granulocytes % (auto) 2.6 %; Lymphocytes # (auto) 0.83 K/uL (1.2-3.4); Lymphocytes % (auto) 7.8 %; Mean Corpuscular Hemoglobin 29.9 pg (25.0-34.0); Mean Corpuscular Hgb Conc 31.1 g/dL (32.0-36.0); Mean Corpuscular Volume 96.2 fL (80.0-100.0); Mean Platelet Volume 9.1 fL (9.4-12.4); Monocytes % (auto) 11.3 %; Neutrophils # (auto) 8.19 K/uL (1.4-6.5); Neutrophils % (auto) 76.7 %; Platelet Count 205 K/uL (130-400); RDW Coefficient of Variation 14.4 % (11.5-14.5); RDW Standard Deviation 50.7 fL (36.4-46.3); Red Blood Count 4.72 M/uL (4.63-6.08); White Blood Count 10.66 K/ul (4.8-10.8)
[2022-07-03 04:51] LABS: BUN Creatinine Ratio 13.2 (10-20); Calcium 9.1 mg/dl (8.5-10.1); Creatinine Clr Calc Pharmacy 46.1 ml/min; Est GFR (African American) 35.7 ml/min; Est GFR (Non-African American) 30.8 ml/min; Magnesium 2.2 mg/dl (1.7-2.4); Phosphorus 2.8 mg/dl (2.5-4.9); Potassium 3.7 mmol/L (3.5-5.1)
[2022-07-03] MEDS: ICU ELECTROLYTE REPLACEMENT PROTOCOL SCH (05:00)
[2022-07-03] MEDS: HEPARIN SOD 5,000 UNIT/0.5 ML VIAL SQ SCH ×3 (05:52→22:00)
[2022-07-03] MEDS: POTASSIUM CHLORIDE CRTAB 20 MEQ TABCR PO SCH ×2 (05:52→08:25)
[2022-07-03] MEDS: FORMOTEROL 20 MCG/2 ML VIAL NEB SCH ×2 (07:42→08:26)
[2022-07-03] MEDS: BUDESONIDE 0.5 MG/2 ML VIAL (PULMICORT) NEB SCH (07:42)
[2022-07-03] MEDS: buPROPion SR 150 MG TABCR PO SCH ×2 (08:22→21:55)
[2022-07-03] MEDS: CHOLECALCIFEROL 1,000 UNITS 25 MCG TAB PO SCH ×2 (08:23→21:55)
[2022-07-03] MEDS: GABAPENTIN 300 MG CAP PO SCH ×2 (08:23→21:55)
[2022-07-03] MEDS: CLOPIDOGREL BISULFATE 75 MG TAB PO SCH (08:23)
[2022-07-03] MEDS: FINASTERIDE 5 MG TAB PO SCH (08:23)
[2022-07-03] MEDS: LANTUS PER UNIT CHARGE SQ SCH ×2 (08:24→21:57)
[2022-07-03] MEDS: METOPROLOL TARTRATE 100 MG TAB PO SCH ×2 (08:24→21:55)
--- NOTE | 2022-07-03 08:25 | Critical Care Progress Note ---
Date of Service July 03, 2022 Assessment & Plan (1) Acute respiratory failure with hypoxia and hypercapnia: (2) Acute exacerbation of chronic obstructive pulmonary disease (COPD): (3) CKD (chronic kidney disease) stage 4, GFR 15-29 ml/min: (4) Obesity: Plan Impression: 71-year-old male with obstructive lung disease and sleep disordered breathing (overlap syndrome) admitted with hypercarbic respiratory failure requiring intubation mechanical ventilation. 24-hour events: Patient extubated without difficulty yesterday morning. He is done well overnight. No acute issues Recommendations: 1. Neurologic: No current issues. Continue gabapentin and bupropion. PT and OT consultations. Out of bed to chair as tolerated 2. Respiratory: Hypercarbic respiratory failure: Unclear precipitant. Suspect combination of untreated sleep disordered breathing as well as COPD. He is improved now. Transition from budesonide and Pulmicort to Anoro. The patient is open to the prospect of using noninvasive positive pressure ventilation at night. Repeat outpatient sleep study may be appropriate. No indication for steroids or antimicrobials. 3. Cardiovascular: Patient's hemodynamically stable. Continue Lipitor aspirin Plavix. Continue metoprolol. 4. Renal: Kidney function appears to be at baseline. Acid-base status acceptable. ICU electrolyte replacement as needed. Discontinue Jarquin 5. GI: Advance diet 6. ID: No current issues. Continue to follow clinically. 7. Heme-onc: No current issues. DVT prophylaxis initiated. 8. Endocrine: Glycemic control per protocol. Patient is clinically improved. He no longer has critical care needs and can be transferred out of the ICU. We will notify the hospitalist service. Critical care services will sign off. Feel free to contact us with additional questions or concerns. I would be happy to follow him up in the pulmonary clinic as he is already established with me as an outpatient. Admission and Anticipated Discharge Date Admission Date: July 01, 2022 Subjective Patient seen and examined. EMR reviewed. Discussed with critical care nurse at bedside. The patient is sitting up eating breakfast. He said no issues overnight. He was able to use BiPAP for a few hours during the night. He is not having any respiratory problems. No coughing or wheezing. No sputum production. Review of Systems Review of Systems: All systems reviewed & are unremarkable except as noted in Subjective Physical Exam Constitutional: + morbidly obese Neck: trachea midline, no thyromegaly Respiratory: normal respiratory effort, lungs clear to auscultation Cardiovascular: RRR, no murmur, no edema Gastrointestinal (Abdomen): normal bowel sounds, soft, nontender, no hepatosplenomegaly Musculoskeletal: Extremities: extremities normal to inspection Skin: no rashes, warm and dry Lymphatic: no cervical lymphadenopathy Results & Data Results & Data ([facility]) Vital Signs (Past 12 Hours) Vital Signs Temp Pulse Pulse Pulse Resp BP Pulse Ox 07/03/22 08:00 79 07/03/22 07:41 74 18 95 07/03/22 07:01 68 23 144/68 H 93 07/03/22 07:00 67 22 93 07/03/22 06:52 170/83 H 07/03/22 06:52 75 92 07/03/22 06:31 157/83 H 07/03/22 06:30 68 94 07/03/22 06:02 70 93 07/03/22 06:01 160/86 H 07/03/22 05:58 67 95 07/03/22 05:31 149/71 H 07/03/22 05:30 69 93 07/03/22 05:01 170/83 H 07/03/22 05:00 74 92 07/03/22 04:31 159/80 H 07/03/22 04:31 65 95 07/03/22 04:30 66 95 07/03/22 04:02 68 95 07/03/22 07:00 07/03/22 07:01 37.0 C 07/03/22 04:01 126/84 07/03/22 04:00 72 95 07/03/22 03:00 72 95 07/03/22 02:00 69 21 93 07/03/22 01:32 EST 73 24 94 07/03/22 01:32 EST 154/74 H 07/03/22 01:01 EST 37.8 C H 67 19 94 07/03/22 01:01 EST 120/78 07/03/22 01:00 EST 37.8 C H 67 20 94 07/03/22 00:31 37.8 C H 68 20 96 07/03/22 00:31 125/68 07/03/22 00:00 37.8 C H 63 96 07/03/22 00:00 123/75 07/02/22 23:31 37.8 C H 63 98 07/02/22 23:31 109/71 07/02/22 23:01 112/73 07/02/22 23:01 37.6 C H 60 98 07/02/22 23:00 37.6 C H 62 97 07/02/22 22:31 37.5 C 61 18 98 07/02/22 22:31 121/75 07/02/22 22:01 131/71 07/02/22 22:01 37.4 C 60 16 98 07/02/22 22:00 37.4 C 60 16 98 07/02/22 21:31 37.3 C 63 16 92 07/02/22 21:31 124/74 07/03/22 00:00 68 07/03/22 00:25 65 20 95 07/02/22 21:50 62 15 97 O2 Del Method O2 Flow Rate FiO2 07/03/22 08:00 07/03/22 07:41 Nasal Cannula 3 07/03/22 07:01 Nasal Cannula 3 07/03/22 07:00 07/03/22 06:52 07/03/22 06:52 07/03/22 06:31 07/03/22 06:30 07/03/22 06:02 07/03/22 06:01 07/03/22 05:58 07/03/22 05:31 07/03/22 05:30 07/03/22 05:01 07/03/22 05:00 07/03/22 04:31 07/03/22 04:31 07/03/22 04:30 07/03/22 04:02 07/03/22 07:00 Nasal Cannula 3 07/03/22 07:01 07/03/22 04:01 07/03/22 04:00 07/03/22 03:00 07/03/22 02:00 07/03/22 01:32 EST 07/03/22 01:32 EST 07/03/22 01:01 EST 07/03/22 01:01 EST 07/03/22 01:00 EST 07/03/22 00:31 07/03/22 00:31 07/03/22 00:00 07/03/22 00:00 07/02/22 23:31 07/02/22 23:31 07/02/22 23:01 07/02/22 23:01 07/02/22 23:00 07/02/22 22:31 07/02/22 22:31 07/02/22 22:01 07/02/22 22:01 07/02/22 22:00 07/02/22 21:31 07/02/22 21:31 07/03/22 00:00 07/03/22 00:25 Nasal Cannula 4 07/02/22 21:50 40 Critical Care Results & Data Vital Signs (Past 12 Hours) Vital Signs Temp Pulse Pulse Pulse Resp BP Pulse Ox 07/03/22 08:00 79 07/03/22 07:41 74 18 95 07/03/22 07:01 68 23 144/68 H 93 07/03/22 07:00 67 22 93 07/03/22 06:52 170/83 H 07/03/22 06:52 75 92 07/03/22 06:31 157/83 H 07/03/22 06:30 68 94 07/03/22 06:02 70 93 07/03/22 06:01 160/86 H 07/03/22 05:58 67 95 07/03/22 05:31 149/71 H 07/03/22 05:30 69 93 07/03/22 05:01 170/83 H 07/03/22 05:00 74 92 07/03/22 04:31 159/80 H 07/03/22 04:31 65 95 07/03/22 04:30 66 95 07/03/22 04:02 68 95 07/03/22 07:00 07/03/22 07:01 37.0 C 07/03/22 04:01 126/84 07/03/22 04:00 72 95 07/03/22 03:00 72 95 07/03/22 02:00 69 21 93 07/03/22 01:32 EST 73 24 94 07/03/22 01:32 EST 154/74 H 07/03/22 01:01 EST 37.8 C H 67 19 94 07/03/22 01:01 EST 120/78 07/03/22 01:00 EST 37.8 C H 67 20 94 07/03/22 00:31 37.8 C H 68 20 96 07/03/22 00:31 125/68 07/03/22 00:00 37.8 C H 63 96 07/03/22 00:00 123/75 07/02/22 23:31 37.8 C H 63 98 07/02/22 23:31 109/71 07/02/22 23:01 112/73 07/02/22 23:01 37.6 C H 60 98 07/02/22 23:00 37.6 C H 62 97 07/02/22 22:31 37.5 C 61 18 98 07/02/22 22:31 121/75 07/02/22 22:01 131/71 07/02/22 22:01 37.4 C 60 16 98 07/02/22 22:00 37.4 C 60 16 98 07/02/22 21:31 37.3 C 63 16 92 07/02/22 21:31 124/74 07/03/22 00:00 68 07/03/22 00:25 65 20 95 07/02/22 21:50 62 15 97 O2 Del Method O2 Flow Rate FiO2 07/03/22 08:00 07/03/22 07:41 Nasal Cannula 3 07/03/22 07:01 Nasal Cannula 3 07/03/22 07:00 07/03/22 06:52 07/03/22 06:52 07/03/22 06:31 07/03/22 06:30 07/03/22 06:02 07/03/22 06:01 07/03/22 05:58 07/03/22 05:31 07/03/22 05:30 07/03/22 05:01 07/03/22 05:00 07/03/22 04:31 07/03/22 04:31 07/03/22 04:30 07/03/22 04:02 07/03/22 07:00 Nasal Cannula 3 07/03/22 07:01 07/03/22 04:01 07/03/22 04:00 07/03/22 03:00 07/03/22 02:00 07/03/22 01:32 EST 07/03/22 01:32 EST 07/03/22 01:01 EST 07/03/22 01:01 EST 07/03/22 01:00 EST 07/03/22 00:31 07/03/22 00:31 07/03/22 00:00 07/03/22 00:00 07/02/22 23:31 07/02/22 23:31 07/02/22 23:01 07/02/22 23:01 07/02/22 23:00 07/02/22 22:31 07/02/22 22:31 07/02/22 22:01 07/02/22 22:01 07/02/22 22:00 07/02/22 21:31 07/02/22 21:31 07/03/22 00:00 07/03/22 00:25 Nasal Cannula 4 07/02/22 21:50 40 Lab & Micro Results (Past 24 Hours) RBC 4.72 M/uL (4.63-6.08) 07/03/22 WBC 10.66 K/ul (4.8-10.8) 07/03/22 Hgb 14.1 g/dl (14.0-18.0) 07/03/22 Hct 45.4 % (40.1-51.0) 07/03/22 MCV 96.2 fL (80.0-100.0) 07/03/22 MCH 29.9 pg (25.0-34.0) 07/03/22 MCHC 31.1 g/dL (32.0-36.0) L 07/03/22 RDW Standard Deviation 50.7 fL (36.4-46.3) H 07/03/22 RDW Coefficient of Variation 14.4 % (11.5-14.5) 07/03/22 Plt Count 205 K/uL (130-400) 07/03/22 MPV 9.1 fL (9.4-12.4) L 07/03/22 Neutrophils (%) (Auto) 76.7 % 07/03/22 Lymphocytes (%) (Auto) 7.8 % 07/03/22 Monocytes # (Auto) 1.20 K/uL (0.24-0.82) H 07/03/22 Eosinophils # (Auto) 0.08 K/uL (0-0.50) 07/03/22 Immature Granulocyte % (Auto) 2.6 % 07/03/22 Neutrophils # (Auto) 8.19 K/uL (1.4-6.5) H 07/03/22 Lymphocytes # (Auto) 0.83 K/uL (1.2-3.4) L 07/03/22 Monocytes # (Auto) 1.20 K/uL (0.24-0.82) H 07/03/22 Eosinophils # (Auto) 0.08 K/uL (0-0.50) 07/03/22 Basophils # (Auto) 0.08 K/uL (0-0.2) 07/03/22 Immature Granulocyte # (Auto) 0.28 K/uL (0.00-0.02) H 07/03 Na 144 mmol/L (136-145) 07/03/22 K 3.7 mmol/L (3.5-5.1) 07/03/22 Cl 105 mmol/L (98-107) 07/03/22 CO2 33 mmol/L (21-32) H 07/03/22 Anion Gap 6 (3-11) 07/03/22 BUN 28 mg/dl (6-23) H 07/03/22 Creatinine 2.12 mg/dl (0.6-1.4) H 07/03/22 Estimated GFR ( Amer) 35.7 ml/min 07/03/22 Estimated GFR (Non-Af Amer) 30.8 ml/min 07/03/22 BUN/Creatinine Ratio 13.2 (10-20) 07/03/22 Glu 152 mg/dl (70-99(Fasting)) H 07/03/22 Ca 9.1 mg/dl (8.5-10.1) 07/03/22 Phosphorus Level 2.8 mg/dl (2.5-4.9) 07/03/22 Mg 2.2 mg/dl (1.7-2.4) 07/03/22 04:02 Calcium Level 9.1 mg/dl (8.5-10.1) 07/03/22 04:02 Microbiology 07/01/22 18:24 Aerobic Blood Culture - Preliminary Blood No growth in Aerobic bottle after 24 hours. Anaerobic Blood Culture - Final 07/01/22 18:24 Aerobic Blood Culture - Preliminary Blood No growth in Aerobic bottle after 24 hours. Anaerobic Blood Culture - Preliminary No growth in Anaerobic bottle after 24 hours. 07/01/22 22:20 Gram Stain - Final Sputum,Vent Suction Sputum Culture - Preliminary Pin-point growth present, reincubating. Diagnostic Findings (Past 24 Hours) Chest X-Ray 07/02/22 09:08 XR chest 1V portable CLINICAL HISTORY: resp failure TECHNIQUE: Single frontal radiograph of the chest was obtained. Comparison: Comparison is made to chest radiograph 07/01/2022 FINDINGS: Exam is limited by underpenetration. Interval stability of endotracheal tube placement. Enteric tube is not well seen but appears unremarkable. The cardiomediastinal silhouette is stable. Left retrocardiac airspace opacity. Previously noted left lung bulla is unchanged. Blunting of the left costophrenic angle compatible with moderate pleural effusion. IMPRESSION: 1. Lines and tubes are stable. 2. Interval increase in left retrocardiac opacity which may reflect atelectasis, pneumonia, and/or aspiration. 3. Likely moderate left pleural effusion. ACT 112: Negative or not required by law. Electronically signed by: Agustín Hayes M.D. 07/02/2022 9:45 AM I & O Totals 24 Hours 07/02/22 07/03/22 07/04/22 07:59 06:59 06:59 Intake Total Output Total 101 / 101 Balance -101 / -101 Cumulative 07/01/22 17:00 thru 07/03/22 08:00 Intake Total 2229.263 Output Total 4786 Balance -2556.737 RT Ventilator Mngmt (Last Documented) Ventilator Ordered Settings Ventilator Support Mode SIMV 07/02/22 08:00 Respiratory Rate 18 07/03/22 07:41 Ventilator Tidal Volume 450 07/02/22 08:00 Setting Minute Ventilation 7.5 07/02/22 09:27 Ventilator Positive Pressure 10 07/02/22 07:35 Support Setting Positive End Expiratory 5 07/02/22 08:00 Pressure Fraction of Inspired Oxygen 40 07/02/22 21:50 Machine Comment Weaned to 50% 07/01/22 19:10 Ventilator - PT Measurements Respiratory Rate 18 Exhaled Tidal Volume 403 Minute Ventilation 7.5 Peak Inspiratory Airway 15 Pressure Plateau Pressure 14.6 Respiratory Cycle Inspiratory: 1:5.1 Expiratory Ratio Inspiratory Phase Time 1.08 End-Tidal CO2 37 Static Lung Compliance 46.88 Dynamic Lung Compliance 26.47 Normal Static Lung Compliance 47.00 Patient Measurements Comment pt extubated per verbal from Dr. Wade. placed on 4L NC with humidity post extubation. Vent in room on standby if needed for CPAP/BiPAP Coding Level of Care Code 31336 Subseq Hosp Care Lvl 3 Diagnoses Acute respiratory failure with hypoxia and hypercapnia J96.01; J96.02 Acute exacerbation of chronic obstructive pulmonary disease (COPD) J44.1 CKD (chronic kidney disease) stage 4, GFR 15-29 ml/min N18.4 Obesity E66.9
[2022-07-03] MEDS: UMECLIDINIUM/VILANTEROL 62.5/25MCG 7 PUFFS/INHALER INH SCH (08:46)
--- NOTE | 2022-07-03 10:02 | Pharmacy Report ---
Pharmacy Glycemic Short Note 2 - Date of Service July 03, 2022 - Glycemic Short BSG Results (Last 24 hours): 07/02/22 07/02/22 07/02/22 11:37 16:06 20:02 Glucose POC Glucose 203 H 250 H 231 H 07/03/22 07/03/22 07/03/22 00:19 04:02 04:02 Glucose 152 H POC Glucose 161 H 135 H 07/03/22 07:26 Glucose POC Glucose 144 H OUTPATIENT ANTIDIABETIC REGIMEN: * Tresiba 45 units daily, Novolog 10 units AC - taken from outpatient DM note from MALINA Hawk (* need to clarify with patient dosing) ASSESSMENT: * 71 year old admitted with respiratory issues transferred to ICU. Extubated yesterday and now starting on clear liquid diet. * Patient received total of 52 units of insulin yesterday, of which 25 units were basal. He had been started on solumedrol 40 mg daily, which was d iscontinued this morning * Fasting BSG 144 mg/dL - will titrate up basal as likely PO intake to increase today * No change to CF/CR currently PLAN FOR INPATIENT GLYCEMIC CONTROL: * Hold outpatient oral diabetes medications * Basal insulin * Lantus 15-20 bid based upon bsg value * Bolus insulin * NovoLog per scale ACHS or Q6hrs while NPO * Goal Range: Low 110 mg/dL - High 140 mg/dL * Correction Factor: 15 mg/dL/unit * Nutritional / Prandial insulin per carb ratio of 1 unit per 6 grams CHO consumed
[2022-07-03] MEDS: AZITHROMYCIN 250 MG TAB PO SCH (12:12)
--- NOTE | 2022-07-03 12:27 | Hospitalist Progress Note ---
Date of Service July 03, 2022 Assessment & Plan (1) Acute respiratory failure with hypoxia and hypercapnia: Plan: acute respiratory failure with hypoxia and hypercapnia. resolved. On 4 l o2 now NC- is on 3 at home Appears patient is not compliant with his home meds as per Dr Wade- just takes nebs at home. H flu positive sputum cx this am- started azithromycin Also has h/o obesity hypoventilation syndrome. will try to wean patient off sedation and perform a trial for extubation later on 07/02 BIOFIRE negative. COVID negative Inhalers ordered. LAMA ordered by Dr Wade D/w Dr Wade. Patient has not been following up w Dr Wade regularly- can be seen as outpatient if patient willing. Update: Patient was extubated successfully yesterday, transferring to tele med surg now (2) Controlled type 2 diabetes mellitus: Plan: consulted glycemic control Pharmacy following Lantus and Novolog per protocol (3) CKD (chronic kidney disease) stage 4, GFR 15-29 ml/min: Plan: creatinine appears to be at baseline (4) Dyslipidemia: Plan: resume atorvastatin (5) Hypertension: Plan: resume home meds. Has orthostatic hypotension this am- encourage po fluids (6) Acute exacerbation of chronic obstructive pulmonary disease (COPD): Plan: as stated above. (7) Obesity hypoventilation syndrome: Plan: declined CPAP as outpatient. Admission and Anticipated Discharge Date Admission Date: July 01, 2022 Subjective NO COMPLAINTS, ATE WELL- LIQUID DIET THIS MORNING Review of Systems Review of Systems: denies CP/ SOB/n/v, mild dizziness when sat in chair from bed- bp 108 systolic then- was in 150 s before transfer Physical Exam Physical Exam: obese, pleasant, hard of hearing H/N : dry tongue, intact EOM Chest : CTA , low intensity BS b/l CVS : S1 S2 RRR, TELEMETRY nsr AT 64/MIN 1217 h Abd : distended, non tender EXT: shins indurated- erythematous, verrucous skin, one plus pitting edema [employer]: 4/5 dorsi flexors b/l Results & Data Results & Data ([facility]) Vital Signs (Past 12 Hours) Vital Signs Temp Pulse Pulse Resp BP Pulse Ox O2 Del Method 07/03/22 12:10 18 64 L Nasal Cannula 07/03/22 10:31 58 L 20 107/64 94 Nasal Cannula 07/03/22 10:01 58 L 20 105/61 95 Nasal Cannula 07/03/22 09:31 59 L 22 108/58 L 95 Nasal Cannula 07/03/22 09:21 65 18 118/68 95 Nasal Cannula 07/03/22 09:01 64 21 114/60 94 Nasal Cannula 07/03/22 08:31 81 18 144/67 H 92 Nasal Cannula 07/03/22 07:30 69 20 153/79 H 97 Nasal Cannula 07/03/22 08:00 79 07/03/22 07:41 74 18 95 Nasal Cannula 07/03/22 07:01 68 23 144/68 H 93 Nasal Cannula 07/03/22 07:00 67 22 93 07/03/22 06:52 170/83 H 07/03/22 06:52 75 92 07/03/22 06:31 157/83 H 07/03/22 06:30 68 94 07/03/22 06:02 70 93 07/03/22 06:01 160/86 H 07/03/22 05:58 67 95 07/03/22 05:31 149/71 H 07/03/22 05:30 69 93 07/03/22 05:01 170/83 H 07/03/22 05:00 74 92 07/03/22 04:31 159/80 H 07/03/22 04:31 65 95 07/03/22 04:30 66 95 07/03/22 04:02 68 95 07/03/22 07:00 Nasal Cannula 07/03/22 07:01 37.0 C 07/03/22 04:01 126/84 07/03/22 04:00 72 95 07/03/22 03:00 72 95 07/03/22 02:00 69 21 93 07/03/22 01:32 EST 73 24 94 07/03/22 01:32 EST 154/74 H 07/03/22 01:01 EST 37.8 C H 67 19 94 07/03/22 01:01 EST 120/78 07/03/22 01:00 EST 37.8 C H 67 20 94 O2 Flow Rate FiO2 07/03/22 12:10 4 94 07/03/22 10:31 3 07/03/22 10:01 3 07/03/22 09:31 3 07/03/22 09:21 3 07/03/22 09:01 3 11/06/22 08:31 2 07/03/22 07:30 3 07/03/22 08:00 07/03/22 07:41 3 07/03/22 07:01 3 07/03/22 07:00 07/03/22 06:52 07/03/22 06:52 07/03/22 06:31 07/03/22 06:30 07/03/22 06:02 07/03/22 06:01 07/03/22 05:58 07/03/22 05:31 07/03/22 05:30 07/03/22 05:01 07/03/22 05:00 07/03/22 04:31 07/03/22 04:31 07/03/22 04:30 07/03/22 04:02 07/03/22 07:00 3 07/03/22 07:01 07/03/22 04:01 07/03/22 04:00 07/03/22 03:00 07/03/22 02:00 07/03/22 01:32 EST 07/03/22 01:32 EST 07/03/22 01:01 EST 07/03/22 01:01 EST 07/03/22 01:00 EST Laboratory Results Abnormal lab results 07/02/22 07/02/22 07/03/22 Range/Units 16:06 20:02 00:19 MCHC (32.0-36.0) g/dL RDW Std Deviation (36.4-46.3) fL MPV (9.4-12.4) fL Neut # (Auto) (1.4-6.5) K/uL Lymph # (Auto) (1.2-3.4) K/uL [place] # (Auto) (0.24-0.82) K/uL Immature Gran # (Auto) (0.00-0.02) K/uL Carbon Dioxide (21-32) mmol/L BUN (6-23) mg/dl Creatinine (0.6-1.4) mg/dl Glucose (70-99(Fasting)) mg/dl POC Glucose 250 H 231 H 161 H (70-99) mg/dl 07/03/22 07/03/22 07/03/22 Range/Units 04:02 04:02 04:02 MCHC 31.1 L (32.0-36.0) g/dL RDW Std Deviation 50.7 H (36.4-46.3) fL MPV 9.1 L (9.4-12.4) fL Neut # (Auto) 8.19 H (1.4-6.5) K/uL Lymph # (Auto) 0.83 L (1.2-3.4) K/uL [place] # (Auto) 1.20 H (0.24-0.82) K/uL Immature Gran # (Auto) 0.28 H (0.00-0.02) K/uL Carbon Dioxide 33 H (21-32) mmol/L BUN 28 H (6-23) mg/dl Creatinine 2.12 H (0.6-1.4) mg/dl Glucose 152 H (70-99(Fasting)) mg/dl POC Glucose 135 H (70-99) mg/dl 07/03/22 07/03/22 Range/Units 07:26 11:20 MCHC (32.0-36.0) g/dL RDW Std Deviation (36.4-46.3) fL MPV (9.4-12.4) fL Neut # (Auto) (1.4-6.5) K/uL Lymph # (Auto) (1.2-3.4) K/uL [place] # (Auto) (0.24-0.82) K/uL Immature Gran # (Auto) (0.00-0.02) K/uL Carbon Dioxide (21-32) mmol/L BUN (6-23) mg/dl Creatinine (0.6-1.4) mg/dl Glucose (70-99(Fasting)) mg/dl POC Glucose 144 H 175 H (70-99) mg/dl Diagnostic Findings 07/01/22 22:20 Gram Stain - Final Sputum,Vent Suction Sputum Culture - Preliminary Haemo.influ betalactamase pos 07/01/22 18:24 Aerobic Blood Culture - Preliminary Blood No growth in Aerobic bottle after 24 hours. Anaerobic Blood Culture - Final 07/01/22 18:24 Aerobic Blood Culture - Preliminary Blood No growth in Aerobic bottle after 24 hours. Anaerobic Blood Culture - Preliminary No growth in Anaerobic bottle after 24 hours. Sodium Potassium Chloride Carbon Dioxide Anion Gap BUN Creatinine Est Cr Clr Drug Dosing Est GFR ( Amer) Est GFR (Non-Af Amer) BUN/Creatinine Ratio Glucose POC Glucose 175 H 144 H 135 H Calcium Phosphorus Magnesium 07/03/22 07/03/22 07/03/22 04:02 04:02 00:19 WBC 10.66 RBC 4.72 Hgb 14.1 Hct 45.4 MCV 96.2 MCH 29.9 MCHC 31.1 L RDW Std Deviation 50.7 H RDW Coeff of Cirilo 14.4 Plt Count 205 MPV 9.1 L Immature Gran % (Auto) 2.6 Neut % (Auto) 76.7 Lymph % (Auto) 7.8 [place] % (Auto) 11.3 Eos % (Auto) 0.8 Baso % (Auto) 0.8 Neut # (Auto) 8.19 H Lymph # (Auto) 0.83 L [place] # (Auto) 1.20 H Eos # (Auto) 0.08 Baso # (Auto) 0.08 Immature Gran # (Auto) 0.28 H Sodium 144 Potassium 3.7 Chloride 105 Carbon Dioxide 33 H Anion Gap 6 BUN 28 H Creatinine 2.12 H Est Cr Clr Drug Dosing 46.1 Est GFR ( Amer) 35.7 Est GFR (Non-Af Amer) 30.8 BUN/Creatinine Ratio 13.2 Glucose 152 H POC Glucose 161 H Calcium 9.1 Phosphorus 2.8 Magnesium 2.2 07/02/22 07/02/22 20:02 16:06 WBC RBC Hgb Hct MCV MCH MCHC RDW Std Deviation RDW Coeff of Cirilo Plt Count MPV Immature Gran % (Auto) Neut % (Auto) Lymph % (Auto) [place] % (Auto) Eos % (Auto) Baso % (Auto) Neut # (Auto) Lymph # (Auto) [place] # (Auto) Eos # (Auto) Baso # (Auto) Immature Gran # (Auto) Sodium Potassium Chloride Carbon Dioxide Anion Gap BUN Creatinine Est Cr Clr Drug Dosing Est GFR ( Amer) Est GFR (Non-Af Amer) BUN/Creatinine Ratio Glucose POC Glucose 231 H 250 H Calcium Phosphorus Magnesium PG Care Time/CCT Total # of Minutes Spent Total Time Spent with Patient: Total time spent is greater than 50% in coordination of care (as documented) at patient's floor/unit and/or counseling patient: Coding Level of Care Code 31255 Subseq Hosp Care Lvl 2 Diagnoses Acute respiratory failure with hypoxia and hypercapnia J96.01; J96.02 Controlled type 2 diabetes mellitus E11.9 CKD (chronic kidney disease) stage 4, GFR 15-29 ml/min N18.4 Dyslipidemia E78.5 Hypertension I10 Acute exacerbation of chronic obstructive pulmonary disease (COPD) J44.1 Obesity hypoventilation syndrome E66.2
[2022-07-03] MEDS: ATORVASTATIN 40 MG TAB PO SCH (21:55)
[2022-07-03] MEDS: ASPIRIN 81 MG CHEW PO SCH (22:01)
[2022-07-04] MEDS: ALBUT/IPRATROP 3MG/0.5MG NEB 3 ML VIAL NEB SCH ×4 (00:09→19:51)
[2022-07-04] MEDS: LANTUS PER UNIT CHARGE SQ SCH ×2 (00:20→08:40)
[2022-07-04] MEDS: HEPARIN SOD 5,000 UNIT/0.5 ML VIAL SQ SCH ×2 (06:39→13:41)
[2022-07-04 07:40] LABS: Hematocrit (blood only) 44.9 % (40.1-51.0); Hemoglobin 13.9 g/dl (14.0-18.0); Mean Corpuscular Hemoglobin 30.5 pg (25.0-34.0); Mean Corpuscular Volume 98.5 fL (80.0-100.0); Mean Platelet Volume 10.5 fL (9.4-12.4); Nucleated RBC # (auto) 0.02 K/uL (0-0); Nucleated RBC % (auto) 0.2 %; Platelet Count 208 K/uL (130-400); RDW Coefficient of Variation 14.5 % (11.5-14.5); RDW Standard Deviation 52.8 fL (36.4-46.3); Red Blood Count 4.56 M/uL (4.63-6.08); White Blood Count 9.44 K/ul (4.8-10.8)
[2022-07-04 07:44] LABS: Basophils # (auto) 0.05 K/uL (0-0.2); Basophils % (auto) 0.5 %; Eosinophils # (auto) 0.17 K/uL (0-0.50); Eosinophils % (auto) 1.8 %; Immature Granulocytes # (auto) 0.72 K/uL (0.00-0.02); Immature Granulocytes % (auto) 7.6 %; Lymphocytes # (auto) 0.83 K/uL (1.2-3.4); Lymphocytes % (auto) 8.8 %; Monocytes # (auto) 0.95 K/uL (0.24-0.82); Monocytes % (auto) 10.1 %; Neutrophils # (auto) 6.72 K/uL (1.4-6.5); Neutrophils % (auto) 71.2 %; Polychromasia 1+
[2022-07-04 07:54] LABS: BUN Creatinine Ratio 14.7 (10-20); Calcium 8.9 mg/dl (8.5-10.1); Creatinine Clr Calc Pharmacy 44.2 ml/min; Est GFR (African American) 34.7 ml/min; Magnesium 2.1 mg/dl (1.7-2.4); Phosphorus 2.8 mg/dl (2.5-4.9); Potassium 4.1 mmol/L (3.5-5.1)
[2022-07-04] MEDS: buPROPion SR 150 MG TABCR PO SCH (07:57)
[2022-07-04] MEDS: CHOLECALCIFEROL 1,000 UNITS 25 MCG TAB PO SCH (07:57)
[2022-07-04] MEDS: UMECLIDINIUM/VILANTEROL 62.5/25MCG 7 PUFFS/INHALER INH SCH (07:57)
[2022-07-04] MEDS: CLOPIDOGREL BISULFATE 75 MG TAB PO SCH (07:57)
[2022-07-04] MEDS: GABAPENTIN 300 MG CAP PO SCH (07:57)
[2022-07-04] MEDS: FINASTERIDE 5 MG TAB PO SCH (07:58)
[2022-07-04] MEDS: METOPROLOL TARTRATE 100 MG TAB PO SCH (07:58)
[2022-07-04] MEDS: AZITHROMYCIN 250 MG TAB PO SCH (07:58)
[2022-07-04] MEDS: INSULIN ASPART PER UNIT SC SCH ×3 (08:40→17:24)
--- NOTE | 2022-07-04 16:14 | Discharge Summary ---
Date of Service July 04, 2022 Admission HPI Per Admitting Provider 71 yo male with h/o COPD exacerbation, type II DM, and CKD presents to the ER with SOB which worsened over the course of the past 4 days. When I arrived to see patient, patient already intubated. ER provider states that patient has been gradually worsening with SOB, and cough for past 4 days. His had an upper respiratory symptoms the week before. When patient arrived, he was hypoxic , tachypnic and ABG showed a pCO2 of 88, which led to his intubation. Principal Diagnosis Acute on chronic respiratory failure requiring mechanical ventilation. Discharge Exam asleep up in chair, oriented to place, ready to go home, on the way H/n : moist tongue Chest CTA low intensity BS b/l CVS : s1s2 RRR Abd : obese non tender [employer] grossly intact- walking unassisted per RN Ext trace edema, no cyanosis Discharge Data Allergies Allergy/AdvReac Type Severity Reaction Status Date / Time azithromycin Allergy Mild diarrhea Verified 07/01/22 20:23 Consultations 07/01/22 17:49 Consult [place] Stat ED Decision to Admit Stat 07/01/22 19:53 Consult [place] Routine Hospital Course (1) Acute respiratory failure with hypoxia and hypercapnia: acute respiratory failure with hypoxia and hypercapnia. resolved, extubated 2 d ago.on 3 l home o2 Appears patient is not compliant with his home meds as per Dr Wade- just takes nebs at home. Willing to see Dr Wade as outpatient- will get him apptment H flu positive sputum started azithromycin Also has h/o obesity hypoventilation syndrome. Inhalers ordered. LAMA ordered by Dr Wade D/w Dr Wade. 07/03/2022 at time of ICU to floor transfer (2) Controlled type 2 diabetes mellitus: Spoke with the patient's Nadia. His blood sugars are pretty well controlled at home with the current regimen of 35 units regular insulin twice a day. (3) CKD (chronic kidney disease) stage 4, GFR 15-29 ml/min: creatinine appears to be at baseline (4) Dyslipidemia: resume atorvastatin (5) Hypertension: resume home meds. Has orthostatic hypotension this am- encourage po fluids (6) Acute exacerbation of chronic obstructive pulmonary disease (COPD): as stated above. (7) Obesity hypoventilation syndrome: declined CPAP as outpatient. Hopefully will reconsdier after seeing Dr Wade. Daytime somnolence noted. Plan On baseline 3 L oxygen saturating 94% all day. Able to ambulate on his own. Ready for discharge with close follow-ups as mentioned above. Ellipta added, prednisone for 2 more days 20 mg daily. Also had H. influenzae and a sputum culture and will get a total of 5 days of rest azithromycin. [facility] Total Time Total Time Spent Total Time Spent (In Minutes): 55. I waited for a long time for the patient's to arrive and the patient was discharged after 7:30 PM when I was sure about his home insulin regimen after talking with his . The patient did not know. Discharge Plan Discharge Items Patient Disposition: Home - Self-Care Reason For Visit: ACUTE HYPOXIC RESPIRATORY FAILURE Discharge Diagnosis: acute on chronic respiratory failure obesity hypoventitlation syndrome w daytime somnolence severe obesity Activity: Resume your previous activity Lifting: Gradually increase as tolerated Bathing: No limitations Sexual Activity: When tolerated Weightbearing: Full weightbearing Non-emergency contact: Primary Care Provider Call non-emergency contact if: you have any medication questions and your symptoms worsen Follow-up/Referrals: Salas Valente DO [Primary Care Provider] - 07/06/22 12:00 pm Diet: Carb Count or DM1 Addtl Attending Provider Instructions: you need to see Dr Wade, the lung specialist , regularly - you have advanced CoPd and obesity hypoventilation syndrome. Please call his office to get an appointment in the next 3 to 4 weeks. Pending Studies at Discharge: No Stand-Alone Forms: [facility] StartSampling, Smoking Cessation Medications and DC Order Prescriptions: New Anoro Ellipta 62.5-25 mcg/actuation Blister With Device 1 ea inhalation DAILY Qty: 14 0RF azithromycin 250 mg Tablet 500 mg PO QAM Qty: 6 0RF prednisone 20 mg tablet 20 mg PO DAILY 3 Days Qty: 3 0RF Continued pantoprazole [Protonix] 40 mg tablet,delayed release (DR/EC) 40 mg PO DAILY PRN (Reason: GERD) Qty: 90 3RF Trulicity 1.5 mg/0.5 mL pen injector 1.5 mg subcut Q7D 90 Days Qty: 12 3RF Rx Instructions: takes on mon metoprolol tartrate [Lopressor] 100 mg tablet 100 mg PO BID Qty: 180 3RF gabapentin 300 mg capsule 300 mg PO BID Qty: 180 3RF Tresiba FlexTouch U-200 200 unit/mL (3 mL) insulin pen 60 unit subcut HS Qty: 1 11RF bupropion HCl 150 mg tablet sustained-release 12 hr 150 mg PO BID 90 Days Qty: 180 3RF ipratropium-albuterol 0.5 mg-3 mg(2.5 mg base)/3 mL solution for nebulization 3 ml inhalation Q4 PRN (Reason: wheezing) Qty: 360 11RF Rx Instructions: DX: J44.9-COPD fluticasone furoate-vilanterol [Breo Ellipta] 100-25 mcg/dose blister with device 1 inh inhalation DAILY Qty: 60 2RF Rx Instructions: USUALLY JUST USES PRN clopidogrel 75 mg tablet 75 mg PO QAM Qty: 90 3RF Novolin R Regular U-100 Insuln 100 unit/mL solution 35 unit subcut BID Rx Instructions: per atorvastatin [Lipitor] 40 mg tablet 40 mg PO HS Qty: 30 11RF finasteride [Proscar] 5 mg tablet 5 mg PO QAM Qty: 90 3RF cholecalciferol (vitamin D3) [Vitamin D3] 1,000 unit Tablet 1,000 unit PO BID acetaminophen 325 mg tablet 650 mg PO TID PRN (Reason: Pain) aspirin 81 mg Tablet,Delayed Release (Dr/Ec) 81 mg PO QPM furosemide 20 mg tablet 20 mg PO DAILY PRN (Reason: Edema) albuterol sulfate 0.63 mg/3 mL solution for nebulization 0.63 mg continuous nebulization QID PRN (Reason: Shortness Of Breath Or Wheezing) Discontinued nystatin 100,000 unit/gram cream 1 applic topical BID PRN (Reason: rash) Qty: 30 11RF menthol-zinc oxide [Calmoseptine] 0.44-20.6 % ointment 1 applic topical QID PRN (Reason: skin irritation) Qty: 113 3RF Discharge Orders: Discharge Order (Routine); Ordered 07/04/22 Ordered By: Diony Dee/Other Patient Handouts: Chest and Lung Problems, COPD Diabetes, Asthma and COPD Admission Data Admit Date/Time: 07/01/22 19:53 Attending Provider: Diony Pickering Admit Provider: Mauricio Gonzalez Primary Care Provider: Salas Valente Other Providers: Tomi Wade ; Mauricio Gonzalez Other Interventions: Discharge Summary Assessment (RN) Last Done: 07/04/22 16:31 Coding Level of Care Code D/C DAY MANAGEMENT >30 MINS Diagnoses Acute respiratory failure with hypoxia and hypercapnia J96.01; J96.02 Controlled type 2 diabetes mellitus E11.9 CKD (chronic kidney disease) stage 4, GFR 15-29 ml/min N18.4 Dyslipidemia E78.5 Hypertension I10 Acute exacerbation of chronic obstructive pulmonary disease (COPD) J44.1 Obesity hypoventilation syndrome E66.2
[2022-07-04] MEDS ORDERED: LANTUS PER UNIT CHARGE SQ SCH (21:00)
== END 2022-07-04 20:26 | disposition home health service (06) | DRG 208 ==
LOC: ED 17:14 → SUATTDRO 19:53 → 1E 19:53 → 2N 07-03 13:16

== ENCOUNTER 2022-09-08 19:31 | Inpatient (IN) ==
[2022-09-08 20:05] LABS: Basophils # (auto) 0.06 K/uL (0-0.2); Basophils % (auto) 0.4 %; Eosinophils # (auto) 0.11 K/uL (0-0.50); Eosinophils % (auto) 0.7 %; Hematocrit (blood only) 50.8 % (40.1-51.0); Hemoglobin 15.9 g/dl (14.0-18.0); Immature Granulocytes # (auto) 0.12 K/uL (0.00-0.02); Immature Granulocytes % (auto) 0.8 %; Mean Corpuscular Hemoglobin 30.3 pg (25.0-34.0); Mean Corpuscular Hgb Conc 31.3 g/dL (32.0-36.0); Mean Corpuscular Volume 96.9 fL (80.0-100.0); Mean Platelet Volume 9.6 fL (9.4-12.4); Monocytes # (auto) 0.99 K/uL (0.24-0.82); Monocytes % (auto) 6.6 %; Neutrophils % (auto) 87.5 %; Platelet Count 191 K/uL (130-400); RDW Coefficient of Variation 15.1 % (11.5-14.5); RDW Standard Deviation 53.8 fL (36.4-46.3); Red Blood Count 5.24 M/uL (4.63-6.08); White Blood Count 15.08 K/ul (4.8-10.8)
[2022-09-08 20:31] LABS: Troponin I High Sensitivity 47.6 pg/ml (0-20)
--- NOTE | 2022-09-08 20:41 | XRay Report ---
XR chest 1V portable CLINICAL HISTORY: Dyspnea TECHNIQUE: Single frontal radiograph of the chest was obtained. Comparison: Comparison is made to chest radiograph 07/02/[address] chest 03/07/2022 FINDINGS: No lines and tubes are seen. The cardiomediastinal silhouette is normal. There is a left retrocardiac airspace opacity. Redemonstration of blunting of the left costophrenic angle. IMPRESSION: Left blunting of the costophrenic angle may represent prominent epicardial fat as seen on prior CT. S uperimposed effusion cannot be entirely excluded. Left retrocardiac opacity may represent atelectasis , pneumonia, and/or aspiration. ACT 112: Negative or not required by law. Electronically signed by: Agustín Hayes M.D. 09/08/2022 8:39 PM
[2022-09-08 20:44] LABS: Albumin Level 3.7 gm/dl (3.4-5.0); BUN Creatinine Ratio 11.3 (10-20); Bilirubin,Total 0.7 mg/dl (0.2-1.0); Calcium 9.3 mg/dl (8.5-10.1); Creatinine Clr Calc Pharmacy 51.7 ml/min; Est GFR (African American) 39.5 ml/min; Est GFR (Non-African American) 34.1 ml/min; Globulin 3.8 gm/dl (2.5-4.0); Magnesium 1.7 mg/dl (1.7-2.4); Potassium 4.1 mmol/L (3.5-5.1); Total Protein 7.5 gm/dl (6.0-8.3)
[2022-09-08] MEDS ORDERED: NITROGLYCERIN SL 0.4 MG/TAB TAB SL STA (20:51)
[2022-09-08] MEDS ORDERED: ASPIRIN CHEW 324 MG PO STA (20:51)
--- NOTE | 2022-09-08 20:51 | Emergency Department Note ---
Impression & Plan Chest pain ED Provider Note INFORMANT: Patient ED PROVIDER(S): Rehan Calle DO CHIEF COMPLAINT: Chest pain PLAN: Disposition: Admission Condition: Good Outpatient prescription management: none Referral: I spoke with the hospitalist, who will see the patient for admission/observation and further evaluation and consultation. MEDICAL DECISION MAKING: Brief summary----Positive exam findings & VS----Test Results---Interventions---Consults/Case mgnt discussions---Decisions not to test/admit/transfer---Remember additional problems---list any social risk factors (4)1exacerbation/new prob syst sx, (a)independ test interp or (b)discussion or (c)all=review test, order test, and review ext'l note or independent historian. (5) need 2 of a-c This is a 72-year-old male who presents to the ED with a chief complaint of chest pain. The patient states that it felt like a pounding in his chest. It would come and go. The patient states that his breathing is baseline for him. He does use 4 L of oxygen at home. He is currently on that. Denies any associated shortness of breath. Denies any fevers or recent illness. No other specific complaints at this time. His exam was unremarkable. Lung sounds were diminished. His vital signs revealed hypertension. Saturations 96% on room air. Twelve-lead EKG shows normal sinus rhythm at a rate of 93. No segment change from 05/01/2022. A chest x-ray shows elevated left hemidiaphragm with either atelectasis, pneumonia or aspiration. Clinically this is likely atelectasis. He has no infectious symptoms. His white blood cell count was 15.08. No obvious infection at this time. His troponin was elevated at 47.6.In June his troponin was around 70. At that time his admission was respiratory failure. The patient was treated with nitro sublingual as well as aspirin p.o. This patient could have a chronic elevation of troponin, however I believe the patient should have this trended as an inpatient. I spoke with the hospitalist about the patient. Triage Nursing notes reviewed. Vital Signs: reviewed Prior /Outside records reviewed: Nephrology note from 07/20/2022 shows stage IV kidney disease and diabetic nephropathy. Differential diagnosis: Differential includes myocardial infarction, myocarditis, pneumonia, hypoxia, COPD, reflux. Diagnostics, as interpreted by me: 12 lead ECG: Normal sinus rhythm at a rate of 93. No ST elevation. No PVCs. Normal QTC. No change from 05/01/2022. Cardiac Monitoring: Sinus rhythm in the high 80s Medical decision rules: HEART SCORE: 6 high Imaging studies: Chest x-ray: No acute disease. Effusion in the left lower lobe. Not felt to be an infectious process clinically. Procedures: none. Critical care: none. HPI: See MDM above. PAST MEDICAL HISTORY: See Below PAST SURGICAL HISTORY: See Below SOCIAL HISTORY: See Below HOME MEDICATIONS: See Below ALLERGIES: See Below VITALS: See Below PHYSICAL EXAMINATION: CONSTITUTIONAL/VITAL SIGNS: Reviewed GENERAL: Non-toxic in appearance. INTEGUMENTARY: Warm, dry, and [place]. HEAD: Normocephalic. EYES: without scleral icterus. ENT/OROPHARYNX: clear and moist. RESPIRATORY: No increased work of breathing. Lungs clear but diminished. CARDIOVASCULAR: Regular rate. Regular rhythm. GI/ABDOMEN: Soft and nontender. . EXTREMITIES: Normal NEUROLOGICAL: Intact without focal deficits. PSYCHIATRIC: Normal affect. MUSCULOSKELETAL: Normal. TRIAGE NURSING DOCUMENTATION REVIEWED. Past Med/Surg History Medical History BPH (benign prostatic hyperplasia) CAD (coronary artery disease) Acute DC 03/2011, complicated by 3 episodes of v fib requiring electrical shock- ZITA x2 Chronic kidney disease With recent EDILMA on CKD. COPD (chronic obstructive pulmonary disease) Severe, per pulm- 2L N/C prn COVID-19 Dyslipidemia History of DC (myocardial infarction) Acute DC 03/2011, complicated by 3 episodes of v fib requiring electrical shock- ZITA x2 Hyperkalemia Hypophosphatemia Morbid obesity with BMI of 40.0-44.9, adult Nephrolithiasis Admitted to [facility] for 7 mm L ureteral stone causing hydronephrosis/EDILMA Obstructive sleep apnea of adult Patient refuses CPAP. On anticoagulant therapy plavix daily On home oxygen therapy 2L N/C prn Peripheral neuropathy SBO (small bowel obstruction) current diagnosis--reason for scheduled colonoscopy Screening PSA (prostate specific antigen) Uncontrolled type 2 diabetes mellitus with diabetic neuropathy, with long-term current use of insulin UTI (urinary tract infection) Surgical History History of bilateral cataract extraction History of cardiac cath 2011- stents x2 History of carpal tunnel release right History of colonoscopy Colonoscopy: 03/18/19: MAC sedation at [facility] History of lithotripsy Left ESWL: 09[place]14/18[place] [facility] [place]: 135.1[place] History of lithotripsy Left ESWL 06/07/19 [facility] History of tooth extraction Hx of transurethral resection of prostate S/P cystoscopy with ureteral stent placement mulitple---last 04/16/20, 03/05/2020 08/23/2018. MAC. No issues. Family History Mother Family history of diabetes mellitus Coronary heart disease DC Father Coronary heart disease DC Myocardial infarction Other No family history of adverse response to anesthesia Denies family history of Ovarian cancer Prostate cancer Breast cancer Colorectal cancer Social History Smoking Status: Former smoker Tobacco Type: Cigarettes Age Started Using Tobacco: 16; Age Quit Using Tobacco: 62; Cigarettes Per Day: 20-30 a clinton; Second Hand Exposure: No (family smoked); Hx Alcohol Use: No Hx Substance Use: No Preferred Language: Slovenian Communication Ability: Effective Visual Impairment: No Limitations Hearing Ability: Normal [employer] Required: No Beliefs That Will Affect Care: None marital status: Current Living Situation: Spouse current occupational status: retired How many Children do You have: 3 Feels Safe at Home: Yes Childhood Exposure to Second-Hand Smoke: Yes caffeine: Yes (Tea and soda ) Dental Care, Regularly: Yes Physical Activity Frequency: Does not Exercise Seatbelt Use: sometimes Sunscreen Use: No Assistive Devices: Cane and Walker Allergies Allergies Allergy/AdvReac Type Severity Reaction Status Date / Time No Known Allergies Allergy Verified 07/20/22 08:43 Home Meds Home Medications Medication Instructions Recorded Confirmed cholecalciferol (vitamin D3) 25 1,000 unit PO BID 08/22/18 07/20/22 mcg (1,000 unit) tablet (Vitamin D3) acetaminophen 325 mg tablet 650 mg PO TID PRN Pain 04/27/20 07/20/22 aspirin 81 mg tablet,delayed 81 mg PO QPM 06/08/20 07/20/22 release albuterol sulfate 0.63 mg/3 mL 0.63 mg continuous nebulization 03/27/21 07/20/22 solution for nebulization QID PRN Shortness Of Breath Or Wheezing insulin regular human 100 unit/mL 35 unit subcut BID 09/23/21 07/20/22 injection solution (Novolin R Regular U-100 Insulin) Previous Rx's Medication Instructions Recorded pantoprazole 40 mg tablet,delayed 40 mg PO DAILY PRN GERD #90 tabs 02/24/21 release (Protonix) atorvastatin 40 mg tablet (Lipitor) 40 mg PO HS #30 tabs 05/10/21 Trulicity 1.5 mg/0.5 mL 1.5 mg (0.5 mL) subcut Q7D 90 days 11/03/21 subcutaneous pen injector #12 SYRINGES (dulaglutide) gabapentin 300 mg capsule 300 mg PO BID #180 caps 12/17/21 metoprolol tartrate 100 mg tablet 100 mg PO BID #180 tabs 12/17/21 (Lopressor) insulin degludec 200 unit/mL (3 60 unit (0.3 mL) subcut HS #1 box 01/28/22 mL) subcutaneous pen (Tresiba FlexTouch U-200 insulin) bupropion HCl 150 mg tablet,12 hr 150 mg PO BID 90 days #180 ea 03/23/22 sustained-release clopidogrel 75 mg tablet 75 mg PO QAM #90 tabs 04/04/22 ipratropium 0.5 mg-albuterol 3 mg 3 ml inhalation Q4 PRN wheezing 06/07/22 (2.5 mg base)/3 mL nebulization #360 mL soln fluticasone furoate 100 1 inh inhalation DAILY #60 ea 06/27/22 mcg-vilanterol 25 mcg/dose inhalation powder (Breo Ellipta) polymyxin B sulfate 10,000 1 drp ophthalmic (eye) Q3H 7 days 07/11/22 unit-trimethoprim 1 mg/mL eye #10 mL drops (Polytrim) furosemide 20 mg tablet 20 mg PO DAILY Edema #90 tabs 07/20/22 finasteride 5 mg tablet (Proscar) 5 mg PO QAM #90 tabs 08/15/22 Results & Data (ED) Vital Signs Vital Signs - 24 hr 09/08/22 19:53 09/08/22 19:53 09/08/22 19:53 Temperature 36.3 C L Temperature Source Oral Pulse Rate 98 H 98 H Respiratory Rate 26 H 26 H Respiratory Effort / Characteristics Labored Labored Respiratory Depth Deep Blood Pressure 170/79 H Blood Pressure Mean 109 Pulse Oximetry 96 96 Oxygen Delivery Method Nasal Cannula Nasal Cannula Nasal Cannula Oxygen Flow Rate 4 4 4 Sepsis Recent Fever Within 48 Hours No Sepsis New/Unexplained Change in Mental Status N/A Sepsis Action Taken by Nursing No Action Required 09/08/22 19:53 Temperature Temperature Source Pulse Rate Respiratory Rate Respiratory Effort / Characteristics Respiratory Depth Blood Pressure Blood Pressure Mean Pulse Oximetry 96 Oxygen Delivery Method Nasal Cannula Oxygen Flow Rate 4 Sepsis Recent Fever Within 48 Hours Sepsis New/Unexplained Change in Mental Status Sepsis Action Taken by Nursing Laboratory Data 09/08/22 19:45 09/08/22 19:45 Lab Results 09/08/22 09/08/22 Range/Units 19:45 19:45 WBC 15.08 H (4.8-10.8) K/ul RBC 5.24 (4.63-6.08) M/uL Hgb 15.9 (14.0-18.0) g/dl Hct 50.8 (40.1-51.0) % MCV 96.9 (80.0-100.0) fL MCH 30.3 (25.0-34.0) pg MCHC 31.3 L (32.0-36.0) g/dL RDW Std Deviation 53.8 H (36.4-46.3) fL RDW Coeff of Cirilo 15.1 H (11.5-14.5) % Plt Count 191 (130-400) K/uL MPV 9.6 (9.4-12.4) fL Immature Gran % (Auto) 0.8 % Neut % (Auto) 87.5 % Lymph % (Auto) 4.0 % [place] % (Auto) 6.6 % Eos % (Auto) 0.7 % Baso % (Auto) 0.4 % Neut # (Auto) 13.20 H (1.4-6.5) K/uL Lymph # (Auto) 0.60 L (1.2-3.4) K/uL [place] # (Auto) 0.99 H (0.24-0.82) K/uL Eos # (Auto) 0.11 (0-0.50) K/uL Baso # (Auto) 0.06 (0-0.2) K/uL Immature Gran # (Auto) 0.12 H (0.00-0.02) K/uL Sodium 139 (136-145) mmol/L Potassium 4.1 (3.5-5.1) mmol/L Chloride 101 (98-107) mmol/L Carbon Dioxide 32 (21-32) mmol/L Anion Gap 6 (3-11) BUN 22 (6-23) mg/dl Creatinine 1.94 H (0.6-1.4) mg/dl Est Cr Clr Drug Dosing 51.7 ml/min Est GFR ( Amer) 39.5 ml/min Est GFR (Non-Af Amer) 34.1 ml/min BUN/Creatinine Ratio 11.3 (10-20) Glucose 268 H (70-99(Fasting)) mg/dl Calcium 9.3 (8.5-10.1) mg/dl Magnesium 1.7 (1.7-2.4) mg/dl Total Bilirubin 0.7 (0.2-1.0) mg/dl AST 11 L (13-39) U/L ALT 13 (7-52) U/L Alkaline Phosphatase 130 H (34-104) U/L Troponin I High Sens 47.6 H (0-20) pg/ml Total Protein 7.5 (6.0-8.3) gm/dl Albumin 3.7 (3.4-5.0) gm/dl Globulin 3.8 (2.5-4.0) gm/dl Albumin/Globulin Ratio 1.0 (0.9-2) Imaging Data Radiologist's Impression: Chest X-Ray 09/08/22 19:38 XR chest 1V portable CLINICAL HISTORY: Dyspnea TECHNIQUE: Single frontal radiograph of the chest was obtained. Comparison: Comparison is made to chest radiograph 07/02/[address] chest 03/07/2022 FINDINGS: No lines and tubes are seen. The cardiomediastinal silhouette is normal. There is a left retrocardiac airspace opacity. Redemonstration of blunting of the left costophrenic angle. IMPRESSION: Left blunting of the costophrenic angle may represent prominent epicardial fat as seen on prior CT. Superimposed effusion cannot be entirely excluded. Left retrocardiac opacity may represent atelectasis, pneumonia, and/or aspiration. ACT 112: Negative or not required by law. Electronically signed by: Agustín Hayes M.D. 09/08/2022 8:39 PM Discharge Plan Visit Data Chief Complaint: Chest Pain Stated Complaint: INCREASED SHORTNESS OF BREATH ED Provider: Rehan Calle Discharge Problem: Chest pain Patient Disposition: Being Evaluated by Hospitalist Forms Stand Alone Forms: [facility] Prescriptions Prescriptions: No Action pantoprazole [Protonix] 40 mg tablet,delayed release (DR/EC) 40 mg PO DAILY PRN (Reason: GERD) Qty: 90 3RF Trulicity 1.5 mg/0.5 mL pen injector 1.5 mg subcut Q7D 90 Days Qty: 12 3RF Rx Instructions: takes on mon metoprolol tartrate [Lopressor] 100 mg tablet 100 mg PO BID Qty: 180 3RF gabapentin 300 mg capsule 300 mg PO BID Qty: 180 3RF Tresiba FlexTouch U-200 200 unit/mL (3 mL) insulin pen 60 unit subcut HS Qty: 1 11RF bupropion HCl 150 mg tablet sustained-release 12 hr 150 mg PO BID 90 Days Qty: 180 3RF ipratropium-albuterol 0.5 mg-3 mg(2.5 mg base)/3 mL solution for nebulization 3 ml inhalation Q4 PRN (Reason: wheezing) Qty: 360 11RF Rx Instructions: DX: J44.9-COPD fluticasone furoate-vilanterol [Breo Ellipta] 100-25 mcg/dose blister with device 1 inh inhalation DAILY Qty: 60 2RF Rx Instructions: USUALLY JUST USES PRN finasteride [Proscar] 5 mg tablet 5 mg PO QAM Qty: 90 3RF clopidogrel 75 mg tablet 75 mg PO QAM Qty: 90 3RF furosemide 20 mg tablet 20 mg PO DAILY Qty: 90 3RF polymyxin B sulf-trimethoprim [Polytrim] 10,000 unit- 1 mg/mL drops 1 drp ophthalmic (eye) Q3H 7 Days Qty: 10 0RF Rx Instructions: while awake; do not exceed 6 doses in 24 hours Novolin R Regular U-100 Insuln 100 unit/mL solution 35 unit subcut BID Rx Instructions: per atorvastatin [Lipitor] 40 mg tablet 40 mg PO HS Qty: 30 11RF cholecalciferol (vitamin D3) [Vitamin D3] 1,000 unit Tablet 1,000 unit PO BID acetaminophen 325 mg tablet 650 mg PO TID PRN (Reason: Pain) aspirin 81 mg Tablet,Delayed Release (Dr/Ec) 81 mg PO QPM albuterol sulfate 0.63 mg/3 mL solution for nebulization 0.63 mg continuous nebulization QID PRN (Reason: Shortness Of Breath Or Wheezing) Referrals Referrals: Salas Valente DO [Primary Care Provider] -
[2022-09-08 20:58] LABS: Influenza A virus by PCR Negative (Neg); Influenza B virus by PCR Negative (Neg); RSV by PCR Negative (Neg); SARS CoV2 RNA(COVID-19) Ceph NEGATIVE (Negative)
--- NOTE | 2022-09-08 21:10 | History & Physical Report ---
Date of Service September 08, 2022 Assessment & Plan (1) Chest pain: Plan: 72yo male with a history of HTN, HLD, CAD (s/p stent placement 10+ years ago), T2DM, CKD4, COPD, OHS, SREEKANTH, diabetic gastroparesis, diabetic nephropathy, BPH with LUTS, GERD, and MDD presents with a few-hour history of chest pain. Chest pain possibly secondary to NSTEMI Patient presents with a few-hour history of CP Initial vitals notable only for elevated BP Initial labs notable for leukocytosis (15.1), elevated creatinine (1.94), elevated alkphos (130), and elevated hsTroponin (47.6) EKG: NSR, no overt ischemic change Two-hour repeat hsTroponin lower than prior (47.6 --> 45); no further repeat values indicated Cardiology consulted Echo ordered HbA1c and lipid profile ordered Nitro prn chest pain, zofran prn nausea DM2 HbA1c 9.6% (06/2022); repeat value ordered Patient's home regimen held on admission Continue BSG checks, sliding-scale insulin, hypoglycemic protocol CKD4 Creatinine on admission elevated to 1.94 (at baseline) Avoid nephrotoxins if able, encourage PO intake when no longer NPO, trend BMP HTN: home metoprolol HLD, CAD: home atorvastatin, ASA COPD: home inhaler regimen BPH with LUTS: home finasteride GERD: home protonix MDD: home bupropion SREEKANTH, OHS: patient refuses CPAP FEN: NPO pending possible catheterization Code status: full code DVT ppx: SCDs Consults: cardiology PT/OT: ordered Dispo: med/telemetry (2) Uncontrolled type 2 diabetes mellitus, with long-term current use of insulin: (3) Obstructive sleep apnea of adult: (4) Obesity hypoventilation syndrome: (5) Hypertension: (6) GERD (gastroesophageal reflux disease): (7) Enlarged prostate with lower urinary tract symptoms (LUTS): (8) Dyslipidemia: (9) COPD (chronic obstructive pulmonary disease): (10) CKD (chronic kidney disease) stage 4, GFR 15-29 ml/min: History of Present Illness Primary Care Provider: aSlas Valente, 72yo male with a history of HTN, HLD, CAD (s/p stent placement 10+ years ago), T2DM, CKD4, COPD, OHS, SREEKANTH, diabetic gastroparesis, diabetic nephropathy, BPH with LUTS, GERD, and MDD presents with a few-hour history of chest pain. Symptoms started suddenly this evening. Patient notes his CP feels similar to a "heart attack" he had 10+ years ago which led to stent placement. Patient denies fever, chills, headache, vision changes, SOB, abdominal pain, nausea, vomiting, hematochezia, melena, back pain, lightheadedness, dizziness, numbness, tingling, or other symptoms. Denies recent illness and recent travel. Upon arrival, vitals were notable for elevated BP (170/79) and tachypnea (26); no tachycardia, patient afebrile, spO2 adequate on 4L NC. Initial labs were notable for leukocytosis (15.1), elevated creatinine (1.94 - at baseline), mildly-elevated alk phos (130), and mildly-elevated hsTroponin (47.6); no anemia, platelets wnl, no electrolyte abnormalities, Tbili not elevated, covid PCR negative. In the ED, patient received ASA 324mg PO (x1) and nitroglycerin 0.4mg SL (x1). EKG: NSR, no overt ischemic change CXR: left blunting of the costophrenic angle may represent prominent epicardial fat as seen on prior CT; superimposed effusion cannot be entirely excluded; left retrocardiac opacity may represent atelectasis, pneumonia, and/or aspiration Surrogate decision-maker in case of an emergency: chiquita Stephenson (cell: [phone]) Allergies Allergy/AdvReac Type Severity Reaction Status Date / Time No Known Allergies Allergy Verified 07/20/22 08:43 Home Medications Medication Instructions Recorded Confirmed Type cholecalciferol (vitamin D3) 25 1,000 unit PO BID 08/22/18 07/20/22 History mcg (1,000 unit) tablet (Vitamin D3) acetaminophen 325 mg tablet 650 mg PO TID PRN Pain 04/27/20 07/20/22 History aspirin 81 mg tablet,delayed 81 mg PO QPM 06/08/20 07/20/22 History release pantoprazole 40 mg tablet,delayed 40 mg PO DAILY PRN GERD #90 tabs 02/24/21 07/20/22 Rx release (Protonix) albuterol sulfate 0.63 mg/3 mL 0.63 mg continuous nebulization 03/27/21 07/20/22 History solution for nebulization QID PRN Shortness Of Breath Or Wheezing atorvastatin 40 mg tablet (Lipitor) 40 mg PO HS #30 tabs 05/10/21 07/20/22 Rx insulin regular human 100 unit/mL 35 unit subcut BID 09/23/21 07/20/22 History injection solution (Novolin R Regular U-100 Insulin) Trulicity 1.5 mg/0.5 mL 1.5 mg (0.5 mL) subcut Q7D 90 days 11/03/21 07/20/22 Rx subcutaneous pen injector #12 SYRINGES (dulaglutide) gabapentin 300 mg capsule 300 mg PO BID #180 caps 12/17/21 07/20/22 Rx metoprolol tartrate 100 mg tablet 100 mg PO BID #180 tabs 12/17/21 07/20/22 Rx (Lopressor) insulin degludec 200 unit/mL (3 60 unit (0.3 mL) subcut HS #1 box 01/28/22 07/20/22 Rx mL) subcutaneous pen (Tresiba FlexTouch U-200 insulin) bupropion HCl 150 mg tablet,12 hr 150 mg PO BID 90 days #180 ea 03/23/22 07/20/22 Rx sustained-release clopidogrel 75 mg tablet 75 mg PO QAM #90 tabs 04/04/22 07/20/22 Rx ipratropium 0.5 mg-albuterol 3 mg 3 ml inhalation Q4 PRN wheezing 06/07/22 07/11/22 Rx (2.5 mg base)/3 mL nebulization #360 mL soln fluticasone furoate 100 1 inh inhalation DAILY #60 ea 06/27/22 07/20/22 Rx mcg-vilanterol 25 mcg/dose inhalation powder (Breo Ellipta) polymyxin B sulfate 10,000 1 drp ophthalmic (eye) Q3H 7 days 07/11/22 07/20/22 Rx unit-trimethoprim 1 mg/mL eye #10 mL drops (Polytrim) furosemide 20 mg tablet 20 mg PO DAILY Edema #90 tabs 07/20/22 07/20/22 Rx finasteride 5 mg tablet (Proscar) 5 mg PO QAM #90 tabs 08/15/22 Rx Past Med/Surg History Medical History BPH (benign prostatic hyperplasia) CAD (coronary artery disease) Acute [place] 03/2011, complicated by 3 episodes of v fib requiring electrical shock- ZITA x2 Chronic kidney disease With recent EDILMA on CKD. COPD (chronic obstructive pulmonary disease) Severe, per pulm- 2L N/C prn COVID-19 Dyslipidemia History of [place] (myocardial infarction) Acute [place] 03/2011, complicated by 3 episodes of v fib requiring electrical shock- ZITA x2 Hyperkalemia Hypophosphatemia Morbid obesity with BMI of 40.0-44.9, adult Nephrolithiasis Admitted to [facility] for 7 mm L ureteral stone causing hydronephrosis/EDILMA Obstructive sleep apnea of adult Patient refuses CPAP. On anticoagulant therapy plavix daily On home oxygen therapy 2L N/C prn Peripheral neuropathy SBO (small bowel obstruction) current diagnosis--reason for scheduled colonoscopy Screening PSA (prostate specific antigen) Uncontrolled type 2 diabetes mellitus with diabetic neuropathy, with long-term current use of insulin UTI (urinary tract infection) Surgical History History of bilateral cataract extraction History of cardiac cath 2011- stents x2 History of carpal tunnel release right History of colonoscopy Colonoscopy: 03/18/19: MAC sedation at [facility] History of lithotripsy Left ESWL: 09/14/18: LMA#[address] [facility] (weight at time: 135.1kg) History of lithotripsy Left ESWL 06/07/19 [facility] History of tooth extraction Hx of transurethral resection of prostate S/P cystoscopy with ureteral stent placement mulitple---last 04/16/20, 03/05/2020 08/23/2018. MAC. No issues. Family History Mother Family history of diabetes mellitus Coronary heart disease [place] Father Coronary heart disease [place] Myocardial infarction Other No family history of adverse response to anesthesia Denies family history of Ovarian cancer Prostate cancer Breast cancer Colorectal cancer Social History Smoking Status: Never smoker Tobacco Type: Cigarettes Age Started Using Tobacco: 16; Age Quit Using Tobacco: 62; Cigarettes Per Day: 20-30 a clinton; Second Hand Exposure: No; Do You Dip or Chew Tobacco: No; Hx Alcohol Use: No Hx Substance Use: No Preferred Language: Nauruan Communication Ability: Effective Visual Impairment: No Limitations Hearing Ability: Normal Tribal Judge Required: No Beliefs That Will Affect Care: None marital status: Current Living Situation: Spouse current occupational status: retired How many Children do You have: 3 Other Information That Helps Us Care for You: No Feels Safe at Home: Yes Safety Concerns: Feels Safe At This Time Childhood Exposure to Second-Hand Smoke: Yes caffeine: Yes (Tea and soda ) Dental Care, Regularly: Yes Physical Activity Frequency: Does not Exercise Seatbelt Use: sometimes Sunscreen Use: No Assistive Devices: Walker Physical Exam Physical Exam: Constitutional: well-appearing, no acute distress HEENT: NCAT, no conjunctival injection CV: regular rhythm, no murmur appreciated, extremities well-perfused, no LE edema Resp: CTABL, no wheezes/rales/rhonchi appreciated, no increased work of breathing GI: soft, nondistended, nontender, BS normoactive MSK: no gross deformities appreciated, no chest wall tenderness to palpation Skin: warm, dry, no rash appreciated Neuro: alert, oriented, no focal neurologic deficit appreciated Results & Data Results & Data ([place]) Vital Signs (Past 12 Hours) Vital Signs Temp Pulse Resp BP Pulse Ox O2 Del Method O2 Flow Rate 09/08/22 19:53 96 Nasal Cannula 4 09/08/22 19:53 Nasal Cannula 4 09/08/22 19:53 98 H 26 H 96 Nasal Cannula 4 09/08/22 19:53 36.3 C L 98 H 26 H 170/79 H 96 Nasal Cannula 4 Supervising Physician Co-Signing Physician Notes Patient seen and examined, chart reviewed, case discussed with Dr. Moncada and I agree with the assessment and plan as above. In brief, patient is a 72yo male with CAD s/p stent placement 10 years ago, HTN, DM and CKD as well as COPD on 4L of O2 at home. Patient presents with acute onset of left sided chest discomfort that felt similar to his prior [place] pain. He reports a little bit of SOB but no diaphoresis, dizziness, syncope. He was given ASA 324mg and Nitro in the ER. Presently chest pain free. No additional complaints offered On exam he is afebrile, elevated HR at 95, tachypneic at 26, saturating well on his baseline 4L NC Skin -no rash HEENT - NC/AT, PERRL MMM Heart - +S1/S2, regular, no m/r/g Lungs - CTA with diminished breath sounds in the base Abd - obese, soft, NT/ND Ext - warm, well perfused, chronic lymphedema with skin changes and venous stasis Labs and images reviewed. Significant for elevated WBC at 15.08 - elevated N:L and bands Cr of 1.94 near baseline Troponin 47.6 --> 45 on 2 hour repeat Assessment/Plan - 72yo male with CAD s/p remote history of stent placement, DM, HTN, CKD and O2 dependent COPD presents with acute episode of chest pain. Mild elevation of troponin to 47.6 which has decreased on repeat at 2 hours. No acute ischemic changes present on EKG Patient remains chest pain free. Do not strongly suspect ACS at this time given decreasing troponin, resolved symptoms. Question possible PNA - patient with elevated WBC, HR of 95 and possible retrocardiac airspace disease. At present he is afebrile, HD stable and saturating well on room air. -In addition to above will check procalcitonin, repeat CXR in AM -Hold off on antibiotics for now -Troponin has peaked -Echo and Cardiology consultation as above Resident Activity Tracking Resident Involvement: Resident Care Provided and Senior Test Engineer Coverage Note Care Provided: Adult Hospital Medicine (1) Enlarged prostate with lower urinary tract symptoms (LUTS) Lower urinary tract symptom detail: weak urinary stream Qualified Code(s): N40.1 - Benign prostatic hyperplasia with lower urinary tract symptoms; R39.12 - Poor urinary stream (2) COPD (chronic obstructive pulmonary disease) COPD type: unspecified COPD Qualified Code(s): J44.9 - Chronic obstructive pulmonary disease, unspecified (3) GERD (gastroesophageal reflux disease) Esophagitis presence: without esophagitis Qualified Code(s): K21.9 - Gastro- esophageal reflux disease without esophagitis
[2022-09-08] MEDS ORDERED: ALBUT/IPRATROP 3MG/0.5MG NEB 3 ML VIAL INH PRN (21:30)
[2022-09-08] MEDS ORDERED: PANTOprazole 40 MG TAB PO PRN (21:30)
[2022-09-08] MEDS ORDERED: GABAPENTIN 300 MG CAP PO ONE (21:30)
[2022-09-08] MEDS ORDERED: NON-FORMULARY MEDICATION (Albuterol Sulfate 0.63 mg/3 mL solution for nebulization) continuous nebulization PRN (21:30)
[2022-09-08] MEDS ORDERED: CARBOHYDRATES FOR HYPOGLYCEMIA PO PRN ×2 (21:31→22:15)
[2022-09-08] MEDS ORDERED: GLUCAGON FOR INJ 1 MG VIAL SQ PRN (21:31)
[2022-09-08] MEDS ORDERED: DEXTROSE 50% 50 ML SYRINGE IV PRN ×2 (21:31→22:15)
[2022-09-08] MEDS ORDERED: GLUCOSE 10 TAB/TUBE PO PRN ×2 (21:31→22:15)
[2022-09-08] MEDS ORDERED: GLUCOSE 40% GEL 15 GM TUBE PO PRN ×2 (21:31→22:15)
[2022-09-08] MEDS ORDERED: NITROGLYCERIN SL 0.4 MG/TAB TAB SL PRN (21:35)
[2022-09-08] MEDS ORDERED: METOPROLOL TARTRATE 100 MG TAB PO ONE (21:45)
[2022-09-08] MEDS ORDERED: GLUCAGON FOR INJ 1 MG VIAL IM PRN (22:15)
--- NOTE | 2022-09-09 00:31 | Billing Data ---
Date of Service September 08, 2022 Coding Level of Care Code 33651 INT INP/OBS CARE
[2022-09-09] MEDS: INSULIN ASPART PER UNIT SC SCH ×5 (00:49→20:41)
[2022-09-09 07:30] LABS: Hematocrit (blood only) 44.4 % (40.1-51.0); Mean Corpuscular Hemoglobin 30.1 pg (25.0-34.0); Mean Corpuscular Hgb Conc 31.5 g/dL (32.0-36.0); Mean Corpuscular Volume 95.5 fL (80.0-100.0); Platelet Count 154 K/uL (130-400); RDW Coefficient of Variation 15.3 % (11.5-14.5); RDW Standard Deviation 53.1 fL (36.4-46.3); Red Blood Count 4.65 M/uL (4.63-6.08); White Blood Count 14.15 K/ul (4.8-10.8)
[2022-09-09 08:03] LABS: Albumin Globulin Ratio 1.1 (0.9-2); Albumin Level 3.1 gm/dl (3.4-5.0); BUN Creatinine Ratio 12.8 (10-20); Bilirubin,Total 0.9 mg/dl (0.2-1.0); Calcium 8.7 mg/dl (8.5-10.1); Chol HDL Ratio 5.2 (0-5); Creatinine Clr Calc Pharmacy 51.2 ml/min; Est GFR (Non-African American) 33.7 ml/min; Globulin 2.9 gm/dl (2.5-4.0); Magnesium 1.8 mg/dl (1.7-2.4); Phosphorus 3.4 mg/dl (2.5-4.9); Potassium 3.9 mmol/L (3.5-5.1)
[2022-09-09 08:09] LABS: Appearance Urine Clear (Clear); Bacteria Urine Automated Negative (Negative); Bilirubin Urine Negative (Negative); Blood Urine 1+ (Negative); Color Urine Dark Yellow; Epithelial Cell Urine Auto 20-30 /lpf (0-5); Glucose Urine UA 3+ (Negative); Ketones Urine Trace (Negative); Leukocyte Esterase Urine Negative (Negative); Nitrite Urine Negative (Negative); Protein Urine Negative (Negative); RBC Urine Automated >30 /hpf (0-4); Urobilinogen Urine Negative (Negative); pH Urine 5.5 (4.5-7.5)
[2022-09-09 08:15] LABS: Prothrombin Time 10.9 Seconds (9.0-12.0)
[2022-09-09 09:15] LABS: Estimated Average Glucose 194 mg/dl; Hemoglobin A1C 8.4 % (4.5-5.6)
[2022-09-09] MEDS: FLUTICASONE/VILANTEROL 100/25MCG 14 PUFFS/INHALER INH SCH (09:23)
--- NOTE | 2022-09-09 09:23 | XCELERA ---
[id number]
[2022-09-09] MEDS: GABAPENTIN 300 MG CAP PO SCH ×2 (09:24→20:40)
[2022-09-09] MEDS: buPROPion SR 150 MG TABCR PO SCH ×2 (09:24→20:39)
[2022-09-09] MEDS: METOPROLOL TARTRATE 100 MG TAB PO SCH ×2 (09:24→20:39)
[2022-09-09] MEDS: CLOPIDOGREL BISULFATE 75 MG TAB PO SCH (09:24)
[2022-09-09] MEDS: FINASTERIDE 5 MG TAB PO SCH (09:24)
--- NOTE | 2022-09-09 10:16 | XRay Report ---
TWO VIEW CHEST CLINICAL HISTORY: Atypical chest pain. Dyspnea. FINDINGS: AP and lateral chest radiographs are compared to study dated 09/08/2022. Correlation is made with chest CT dated 03/07/2022. The AP view is degraded by apical lordotic positioning. The heart is enlarged. The pulmonary vasculature is noncongested. Emphysema and chronic interstitial thickening is similar to previous. There is bibasilar scarring/atelectasis. No airspace consolidation or pleural e ffusion is identified. There is no pneumothorax. The skeletal structures are osteopenic. The bony tho rax appears intact. IMPRESSION: Cardiomegaly and emphysema with no acute cardiopulmonary abnormality identified. ACT 112: Negative or not required by law. Electronically signed by: Tera Cao M.D. 09/09/2022 10:15 AM
[2022-09-09] MEDS ORDERED: NYSTATIN POWDER 15GM BTL EXT PRN (11:13)
--- NOTE | 2022-09-09 11:27 | Cardiology Consultation ---
Date of Consultation September 09, 2022 Assessment & Plan (1) Non-ST elevation OH (NSTEMI): There are no acute ischemic EKG changes, no chest pain, no new wall motion abnormalities on echocardiogram, and the modestly elevated troponin is not in a pattern consistent with ACS. Additionally, the troponin is actually lower than his recent admission. Elevated troponin is likely loss prevention representative of type II non-ST elevation OH secondary to chronic renal insufficiency, hypertension, plus or minus hypoxia. Patient is a suboptimal candidate for catheterization. He carries significant risk for contrast-induced nephropathy and bleed. At this point, I would reserve catheterization for more compelling presentation and/or significant myocardial ischemic burden on stress testing. I recommend Lexiscan stress MPI as his echo imaging is poor and I would not anticipate good quality stress echocardiogram study. (2) CAD (coronary artery disease): He does have known mild residual coronary disease and therefore should continue with guideline directed medical therapy for secondary prevention of coronary disease. His current heart rate and blood pressure are at target. Continue aspirin 81 mg daily, a atorvastatin 40 mg daily, metoprolol tartrate 100 mg p.o. twice daily. CAR inhibitor/ARB were previously discontinued secondary to high- grade renal dysfunction. He is also been on Plavix lifelong which is reasonable to continue at this time. (3) Dyslipidemia: High risk. High intensity statin therapy. Continue atorvastatin 40 mg daily. Titrate as needed as an outpatient. (4) Hypertension: Blood pressure is now adequately controlled. Continue current medical regimen. If needed, patient could be placed on long-acting nitroglycerin but at present does not appear to need that. Plan Patient is appropriate for discharge from a cardiovascular standpoint. He has been scheduled for outpatient Lexiscan stress at 7 AM on September 13. Additionally, follow-up appointment with Dr Vazquez has been scheduled for 11 AM on September 14. History of Present Illness Reason for Consultation: Elevated troponin Attending Physician: Mauricio Gonzalez History of Present Illness 72-year-old gentleman who is morbidly obese with a history of coronary artery disease status post PCI for inferior ST elevation OH in 2010. Complicated by VT/VF. Received 2 drug-eluting stents to the RCA. Follows with Dr. Vazquez but has not seen him since 2019. Comorbid disease include diabetes, chronic renal insufficiency stage IIIb-IV, and COPD. Patient presented yesterday for sudden onset shortness of breath. His troponin was found to be mildly elevated. I was asked to see him regarding his cardiac problems. Patient denies any chest pain, pressure, or heaviness. States he just had sudden onset shortness of breath and if this is not like his prior myocardial infarction. He is limited in activity but denies any exertional angina. He does have dyspnea on exertion which is longstanding. He denies syncope, near syncope, PND, or racing heartbeat. Longstanding bilateral lower extremity edema which is painful. Also with orthopnea longstanding. Reviewing his records, in 2010 he had acute OH and had a 3.0 and a 3.5 mm diameter stent placed in the RCA. He had no significant left-sided coronary disease. 2 years later he underwent catheterization again which revealed no significant change in his coronary disease and his stents were patent. More recently, he underwent echocardiogram which showed normal EF and no wall motion abnormalities. On this admission, he had repeat echocardiogram which demonstrated EF 60 to 65% without regional wall motion abnormalities. Also noted mildly dilated RV with mild RVH. Normal RV function. There was grade 1 diastolic dysfunction and no evidence of significant valvular pathology. This echo is unchanged compared to prior. Of note, his echo quality is generally not very good because of his body habitus and also COPD. It is noted that his systolic blood pressure was 170 mmHg on admission. He was treated and now his blood pressure has been well controlled. He has not had a recent stress test as he has remained without anginal symptoms since 2012. I note that his troponin was elevated in June at 78.7 and 70.3. Allergies Allergy/AdvReac Type Severity Reaction Status Date / Time No Known Allergies Allergy Verified 07/20/22 08:43 Home Medications Medication Instructions Recorded Confirmed Type cholecalciferol (vitamin D3) 25 1,000 unit PO BID 08/22/18 07/20/22 History mcg (1,000 unit) tablet (Vitamin D3) acetaminophen 325 mg tablet 650 mg PO TID PRN Pain 04/27/20 07/20/22 History aspirin 81 mg tablet,delayed 81 mg PO QPM 06/08/20 07/20/22 History release pantoprazole 40 mg tablet,delayed 40 mg PO DAILY PRN GERD #90 tabs 02/24/21 07/20/22 Rx release (Protonix) albuterol sulfate 0.63 mg/3 mL 0.63 mg continuous nebulization 03/27/21 07/20/22 History solution for nebulization QID PRN Shortness Of Breath Or Wheezing atorvastatin 40 mg tablet (Lipitor) 40 mg PO HS #30 tabs 05/10/21 07/20/22 Rx insulin regular human 100 unit/mL 35 unit subcut BID 09/23/21 07/20/22 History injection solution (Novolin R Regular U-100 Insulin) Trulicity 1.5 mg/0.5 mL 1.5 mg (0.5 mL) subcut Q7D 90 days 11/03/21 07/20/22 Rx subcutaneous pen injector #12 SYRINGES (dulaglutide) gabapentin 300 mg capsule 300 mg PO BID #180 caps 12/17/21 07/20/22 Rx metoprolol tartrate 100 mg tablet 100 mg PO BID #180 tabs 12/17/21 07/20/22 Rx (Lopressor) insulin degludec 200 unit/mL (3 60 unit (0.3 mL) subcut HS #1 box 01/28/22 07/20/22 Rx mL) subcutaneous pen (Tresiba FlexTouch U-200 insulin) bupropion HCl 150 mg tablet,12 hr 150 mg PO BID 90 days #180 ea 03/23/22 07/20/22 Rx sustained-release clopidogrel 75 mg tablet 75 mg PO QAM #90 tabs 04/04/22 07/20/22 Rx ipratropium 0.5 mg-albuterol 3 mg 3 ml inhalation Q4 PRN wheezing 06/07/22 07/11/22 Rx (2.5 mg base)/3 mL nebulization #360 mL soln fluticasone furoate 100 1 inh inhalation DAILY #60 ea 06/27/22 07/20/22 Rx mcg-vilanterol 25 mcg/dose inhalation powder (Breo Ellipta) polymyxin B sulfate 10,000 1 drp ophthalmic (eye) Q3H 7 days 07/11/22 07/20/22 Rx unit-trimethoprim 1 mg/mL eye #10 mL drops (Polytrim) furosemide 20 mg tablet 20 mg PO DAILY Edema #90 tabs 07/20/22 07/20/22 Rx finasteride 5 mg tablet (Proscar) 5 mg PO QAM #90 tabs 08/15/22 Rx Patient History Medical History BPH (benign prostatic hyperplasia) CAD (coronary artery disease) Acute OH 03/2011, complicated by 3 episodes of v fib requiring electrical shock- ZITA x2 Chronic kidney disease With recent EDILMA on CKD. COPD (chronic obstructive pulmonary disease) Severe, per pulm- 2L N/C prn COVID-19 Dyslipidemia History of OH (myocardial infarction) Acute OH 03/2011, complicated by 3 episodes of v fib requiring electrical shock- ZITA x2 Hyperkalemia Hypophosphatemia Morbid obesity with BMI of 40.0-44.9, adult Nephrolithiasis Admitted to [facility] for 7 mm L ureteral stone causing hydronephrosis/EDILMA Obstructive sleep apnea of adult Patient refuses CPAP. On anticoagulant therapy plavix daily On home oxygen therapy 2L N/C prn Peripheral neuropathy SBO (small bowel obstruction) current diagnosis--reason for scheduled colonoscopy Screening PSA (prostate specific antigen) Uncontrolled type 2 diabetes mellitus with diabetic neuropathy, with long-term current use of insulin UTI (urinary tract infection) Surgical History History of bilateral cataract extraction History of cardiac cath 2011- stents x2 History of carpal tunnel release right History of colonoscopy Colonoscopy: 03/18/19: MAC sedation at [facility] History of lithotripsy Left ESWL: 09/14/18: [place] [facility] [place]weight at [place]: 135.1kg) History of lithotripsy Left ESWL 06/07/19 [facility] History of tooth extraction Hx of transurethral resection of prostate S/P cystoscopy with ureteral stent placement mulitple---last 04/16/20, 03/05/2020 08/23/2018. MAC. No issues. Family History Mother Family history of diabetes mellitus Coronary heart disease OH Father Coronary heart disease OH Myocardial infarction Other No family history of adverse response to anesthesia Denies family history of Ovarian cancer Prostate cancer Breast cancer Colorectal cancer Social History Smoking Status: Never smoker Tobacco Type: Cigarettes Age Started Using Tobacco: 16; Age Quit Using Tobacco: 62; Cigarettes Per Day: 20-30 a clinton; Second Hand Exposure: No; Hx Alcohol Use: No Hx Substance Use: No Preferred Language: Greenlandic Communication Ability: Effective Visual Impairment: No Limitations Hearing Ability: Normal Laser Print Operator Required: No Beliefs That Will Affect Care: None marital status: Current Living Situation: Spouse current occupational status: retired How many Children do You have: 3 Feels Safe at Home: Yes Childhood Exposure to Second-Hand Smoke: Yes caffeine: Yes (Tea and soda ) Dental Care, Regularly: Yes Physical Activity Frequency: Does not Exercise Seatbelt Use: sometimes Sunscreen Use: No Assistive Devices: Walker Review of Systems Review of Systems: Negative except as per HPI Physical Exam Constitutional: WD/WN, vitals as above (Morbidly obese chronically ill-appear ing) Eyes: Extraocular muscles intact. Sclera are anicteric. ENMT: Oral mucosa is pink and dry. Neck: Thick. No JVD noted. Respiratory: Clear to auscultation bilaterally. No wheezing, rhonchi, or ral es appreciated. Poor air movement. Cardiovascular: Regular rate and rhythm. S4 gallop. Distant heart sounds. No rubs or murmurs appreciated. Gastrointestinal (Abdomen): Obese. Normal bowel sounds. Musculoskeletal: Bilateral lower extremity chronic venous stasis changes with mild erythema. 1+ edema today. Neurologic: Cognition is intact. Speech is fluent. There is no focal deficits. Psychiatric: A+Ox3, euthymic affect Results & Data ([facility]) Vital Signs (Past 12 Hours) Vital Signs Temp Pulse Pulse Resp BP BP Pulse Ox 09/09/22 10:44 37.1 C 74 18 130/70 96 09/09/22 10:24 09/09/22 07:44 36.8 C 70 18 140/80 97 09/09/22 07:31 36.9 C 79 20 128/79 96 09/09/22 07:01 77 09/09/22 04:32 37 C 76 18 124/75 96 09/08/22 23:46 80 09/09/22 03:41 37 C 106 H 18 96/62 L 96 O2 Del Method O2 Flow Rate 09/09/22 10:44 Nasal Cannula 4 09/09/22 10:24 Nasal Cannula 4 09/09/22 07:44 Nasal Cannula 4 09/09/22 07:31 Nasal Cannula 2 09/09/22 07:09/09/22 04:32 Nasal Cannula 4 09/08/22 23:46 09/09/22 03:41 High Flow Nasal Cannula 4 PG Care Time/CCT Total # of Minutes Spent Total Time Spent with Patient: Total time spent is greater than 50% in coordination of care (as documented) at patient's floor/unit and/or counseling patient: [place] [address] INT INP/OBS CARE 3/75MIN Patient Type New Diagnoses Non-ST elevation OH (NSTEMI) I21.4 CAD (coronary artery disease) I25.10 Associated angina: without angina Coronary Disease-Associated Artery/Lesion type: [place] artery [place] vs. transplanted heart: [place] heart Dyslipidemia E78.5 Hypertension I10 (1) CAD (coronary artery disease) Associated angina: without angina Coronary Disease-Associated Artery/Lesion type: [place] artery [place] vs. transplanted heart: [place] heart Qualified Code(s): I25.10 - Atherosclerotic heart disease of [place] coronary artery without angina pectoris
[2022-09-09] MEDS: CEFEPIME 2,000 MG in SYRINGE 0 ML IV SCH (13:47)
[2022-09-09] MEDS: ENOXAPARIN INJ 40 MG/0.4 ML SYR SQ SCH (13:47)
--- NOTE | 2022-09-09 13:50 | Electrocardiogram Report ---
Test Reason : Blood Pressure : / mmHG Vent. Rate : 093 BPM Atrial Rate : 093 BPM P-R Int : 138 ms QRS Dur : 084 ms QT Int : 352 ms P-R-T Axes : 097 -52 032 degrees QTc Int : 437 ms Normal sinus rhythm Left axis deviation Old inferior infarction Abnormal ECG When compared with ECG of 01-JUL-2022 19:59, No significant change was found Confirmed by Marshal Spring ([id number]) on 09/09/2022 1:50:01 PM Referred By: REFERRED SELF Confirmed By:Marshal Spring
[2022-09-09] MEDS: ACETAMINOPHEN 325 MG TAB PO PRN (16:26)
[2022-09-09] MEDS: ASPIRIN 81 MG ECTAB PO SCH (20:39)
[2022-09-09] MEDS: ATORVASTATIN 40 MG TAB PO SCH (20:39)
--- NOTE | 2022-09-09 22:03 | Hospitalist Progress Note ---
Date of Service September 09, 2022 Assessment & Plan (1) Bilateral lower leg cellulitis: Plan: Patient admitted for chest pain, which was ruled out by cardio as non cardiac. Patient though is having lower extremity pain. Also has elevated WBC, will place on antibiotics. will hold MRSA coverage unless clinical picture does not improve. (2) Chest pain: Plan: 72yo male with a history of HTN, HLD, CAD (s/p stent placement 10+ years ago), T2DM, CKD4, COPD, OHS, SREEKANTH, diabetic gastroparesis, diabetic nephropathy, BPH with LUTS, GERD, and MDD presents with a few-hour history of chest pain. Chest pain possibly secondary to NSTEMI Patient presents with a few-hour history of CP Initial vitals notable only for elevated BP Initial labs notable for leukocytosis (15.1), elevated creatinine (1.94), elevated alkphos (130), and elevated hsTroponin (47.6) EKG: NSR, no overt ischemic change Two-hour repeat hsTroponin lower than prior (47.6 --> 45); no further repeat values indicated Cardiology consulted Echo ordered HbA1c and lipid profile ordered Nitro prn chest pain, zofran prn nausea No further work up DM2 HbA1c 9.6% (06/2022); repeat value ordered Patient's home regimen held on admission Continue BSG checks, sliding-scale insulin, hypoglycemic protocol CKD4 Creatinine on admission elevated to 1.94 (at baseline) Avoid nephrotoxins if able, encourage PO intake when no longer NPO, trend BMP HTN: home metoprolol HLD, CAD: home atorvastatin, ASA COPD: home inhaler regimen BPH with LUTS: home finasteride GERD: home protonix MDD: home bupropion SREEKANTH, OHS: patient refuses CPAP FEN: NPO pending possible catheterization Code status: full code DVT ppx: SCDs Consults: cardiology PT/OT: ordered Dispo: med/telemetry (3) Uncontrolled type 2 diabetes mellitus, with long-term current use of insulin: (4) Obstructive sleep apnea of adult: (5) Obesity hypoventilation syndrome: (6) Hypertension: (7) GERD (gastroesophageal reflux disease): (8) Enlarged prostate with lower urinary tract symptoms (LUTS): (9) Dyslipidemia: (10) COPD (chronic obstructive pulmonary disease): (11) CKD (chronic kidney disease) stage 4, GFR 15-29 ml/min: Admission and Anticipated Discharge Date Admission Date: September 09, 2022 Subjective Patient reports his chest pain has improved. He is having some pain in his lower extremities. Review of Systems Review of Systems: All systems reviewed & are unremarkable except as noted in HPI & below Physical Exam Physical Exam: Constitutional: well-appearing, no acute distress HEENT: NCAT, no conjunctival injection CV: regular rhythm, no murmur appreciated, extremities well-perfused, no LE edema Resp: CTABL, no wheezes/rales/rhonchi appreciated, no increased work of breathing GI: soft, nondistended, nontender, BS normoactive MSK: no gross deformities appreciated, no chest wall tenderness to palpation Skin: warm, dry, no rash appreciated Neuro: alert, oriented, no focal neurologic deficit appreciated Results & Data Results & Data ([facility]) Vital Signs (Past 12 Hours) Vital Signs Temp Pulse Pulse Resp BP BP Pulse Ox 09/09/22 21:19 09/09/22 18:40 37.5 C 74 18 115/69 97 09/09/22 15:00 78 09/09/22 16:09 37.3 C 75 18 164/80 H 98 09/09/22 10:44 37.1 C 74 18 130/70 96 09/09/22 10:24 O2 Del Method O2 Flow Rate 09/09/22 21:19 Nasal Cannula 4 09/09/22 18:40 Nasal Cannula 4 09/09/22 15:00 09/09/22 16:09 Nasal Cannula 4 09/09/22 10:44 Nasal Cannula 4 09/09/22 10:24 Nasal Cannula 4 PG Care Time/CCT Total # of Minutes Spent Total Time Spent with Patient: Total time spent is greater than 50% in coordination of care (as documented) at patient's floor/unit and/or counseling patient: Coding Level of Care Code 13996 SUB INP/OBS CARE 2/35MIN Diagnoses Bilateral lower leg cellulitis L03.116; L03.115 Chest pain R07.9 Uncontrolled type 2 diabetes mellitus, with long-term current use of insulin Obstructive sleep apnea of adult G47.33 Obesity hypoventilation syndrome E66.2 Hypertension I10 GERD (gastroesophageal reflux disease) K21.9 Esophagitis presence: without esophagitis Enlarged prostate with lower urinary tract symptoms (LUTS) N40.1; R39.12 Lower urinary tract symptom detail: weak urinary stream Dyslipidemia E78.5 COPD (chronic obstructive pulmonary disease) J44.9 COPD type: unspecified COPD CKD (chronic kidney disease) stage 4, GFR 15-29 ml/min N18.4 (1) Enlarged prostate with lower urinary tract symptoms (LUTS) Lower urinary tract symptom detail: weak urinary stream Qualified Code(s): N40.1 - Benign prostatic hyperplasia with lower urinary tract symptoms; R39.12 - Poor urinary stream (2) COPD (chronic obstructive pulmonary disease) COPD type: unspecified COPD Qualified Code(s): J44.9 - Chronic obstructive pulmonary disease, unspecified (3) GERD (gastroesophageal reflux disease) Esophagitis presence: without esophagitis Qualified Code(s): K21.9 - Gastro-esophageal reflux disease without esophagitis
[2022-09-10 06:03] LABS: Basophils # (auto) 0.04 K/uL (0-0.2); Basophils % (auto) 0.3 %; Eosinophils # (auto) 0.16 K/uL (0-0.50); Eosinophils % (auto) 1.2 %; Hemoglobin 13.3 g/dl (14.0-18.0); Immature Granulocytes % (auto) 0.8 %; Lymphocytes # (auto) 0.55 K/uL (1.2-3.4); Lymphocytes % (auto) 4.3 %; Mean Corpuscular Hemoglobin 30.1 pg (25.0-34.0); Mean Corpuscular Hgb Conc 31.7 g/dL (32.0-36.0); Mean Platelet Volume 9.7 fL (9.4-12.4); Monocytes # (auto) 1.07 K/uL (0.24-0.82); Monocytes % (auto) 8.3 %; Neutrophils # (auto) 11.02 K/uL (1.4-6.5); Neutrophils % (auto) 85.1 %; Platelet Count 153 K/uL (130-400); RDW Standard Deviation 52.2 fL (36.4-46.3); Red Blood Count 4.42 M/uL (4.63-6.08); White Blood Count 12.94 K/ul (4.8-10.8)
[2022-09-10 06:37] LABS: Albumin Level 2.9 gm/dl (3.4-5.0); BUN Creatinine Ratio 13.2 (10-20); C Reactive Protein 15.41 mg/dl (0-0.5); Calcium 8.5 mg/dl (8.5-10.1); Creatinine Clr Calc Pharmacy 47.3 ml/min; Est GFR (African American) 37.2 ml/min; Est GFR (Non-African American) 32.1 ml/min; Globulin 2.9 gm/dl (2.5-4.0); Potassium 3.9 mmol/L (3.5-5.1); Total Protein 5.8 gm/dl (6.0-8.3)
[2022-09-10] MEDS: buPROPion SR 150 MG TABCR PO SCH ×2 (09:33→20:27)
[2022-09-10] MEDS: FLUTICASONE/VILANTEROL 100/25MCG 14 PUFFS/INHALER INH SCH (09:33)
[2022-09-10] MEDS: FINASTERIDE 5 MG TAB PO SCH (09:33)
[2022-09-10] MEDS: CLOPIDOGREL BISULFATE 75 MG TAB PO SCH (09:33)
[2022-09-10] MEDS: METOPROLOL TARTRATE 100 MG TAB PO SCH ×2 (09:33→20:25)
[2022-09-10] MEDS: GABAPENTIN 300 MG CAP PO SCH ×2 (09:33→20:27)
[2022-09-10] MEDS: ENOXAPARIN INJ 40 MG/0.4 ML SYR SQ SCH (09:34)
[2022-09-10] MEDS: INSULIN ASPART PER UNIT SC SCH ×4 (09:34→20:29)
[2022-09-10] MEDS: CEFEPIME 2,000 MG in SYRINGE 0 ML IV SCH (12:59)
[2022-09-10] MEDS ORDERED: FUROSEMIDE 40 MG/4 ML VIAL IV ONE (14:35)
--- NOTE | 2022-09-10 16:15 | Hospitalist Progress Note ---
Date of Service September 10, 2022 Assessment & Plan (1) Bilateral lower leg cellulitis: Plan: Patient admitted for chest pain, which was ruled out by cardio as non cardiac. Patient though is having lower extremity pain. Also has elevated WBC, will place on antibiotics. will hold MRSA coverage unless clinical picture does not improve. \ On 09/10, legs appeared to be improving. will continue, will also diurese patient and monitor. (2) Chest pain: Plan: 72yo male with a history of HTN, HLD, CAD (s/p stent placement 10+ years ago), T2DM, CKD4, COPD, OHS, SREEKANTH, diabetic gastroparesis, diabetic nephropathy, BPH with LUTS, GERD, and MDD presents with a few-hour history of chest pain. Chest pain possibly secondary to NSTEMI Patient presents with a few-hour history of CP Initial vitals notable only for elevated BP Initial labs notable for leukocytosis (15.1), elevated creatinine (1.94), elevated alkphos (130), and elevated hsTroponin (47.6) EKG: NSR, no overt ischemic change Two-hour repeat hsTroponin lower than prior (47.6 --> 45); no further repeat values indicated Cardiology consulted Echo ordered HbA1c and lipid profile ordered Nitro prn chest pain, zofran prn nausea No further work up DM2 HbA1c 9.6% (06/2022); repeat value ordered Patient's home regimen held on admission Continue BSG checks, sliding-scale insulin, hypoglycemic protocol CKD4 Creatinine on admission elevated to 1.94 (at baseline) Avoid nephrotoxins if able, encourage PO intake when no longer NPO, trend BMP HTN: home metoprolol HLD, CAD: home atorvastatin, ASA COPD: home inhaler regimen BPH with LUTS: home finasteride GERD: home protonix MDD: home bupropion SREEKANTH, OHS: patient refuses CPAP FEN: NPO pending possible catheterization Code status: full code DVT ppx: SCDs Consults: cardiology PT/OT: ordered Dispo: med/telemetry (3) Uncontrolled type 2 diabetes mellitus, with long-term current use of insulin: (4) Obstructive sleep apnea of adult: (5) Obesity hypoventilation syndrome: (6) Hypertension: (7) GERD (gastroesophageal reflux disease): (8) Enlarged prostate with lower urinary tract symptoms (LUTS): (9) Dyslipidemia: (10) COPD (chronic obstructive pulmonary disease): (11) CKD (chronic kidney disease) stage 4, GFR 15-29 ml/min: Admission and Anticipated Discharge Date Admission Date: September 09, 2022 Subjective 72 yo male reports no significant iprovement with his breathing. He feels that he is having difficulty ambulating. Review of Systems Review of Systems: All systems reviewed & are unremarkable except as noted in HPI & below Physical Exam Physical Exam: Constitutional: well-appearing, no acute distress HEENT: NCAT, no conjunctival injection CV: regular rhythm, no murmur appreciated, extremities well-perfused, no LE edema Resp: CTABL, no wheezes/rales/rhonchi appreciated, no increased work of breathing GI: soft, nondistended, nontender, BS normoactive MSK: no gross deformities appreciated, no chest wall tenderness to palpation Skin: warm, dry, no rash appreciated, cellutlits noted on lower legs with venous stasis changes, legs appear less erythematous. Neuro: alert, oriented, no focal neurologic deficit appreciated Results & Data Results & Data ([facility]) Vital Signs (Past 12 Hours) Vital Signs Temp Pulse Pulse Resp BP Pulse Ox O2 Del Method 09/10/22 15:57 37.3 C 72 18 136/75 97 Nasal Cannula 09/10/22 09:30 Nasal Cannula 09/10/22 12:22 37.1 C 70 20 121/72 96 Nasal Cannula 09/10/22 07:25 77 09/10/22 07:17 37.8 C H 75 20 117/68 95 Nasal Cannula O2 Flow Rate 09/10/22 15:57 4 09/10/22 09:30 4 09/10/22 12:22 4 09/10/22 07:25 09/10/22 07:17 4 PG Care Time/CCT Total # of Minutes Spent Total Time Spent with Patient: Total time spent is greater than 50% in coordination of care (as documented) at patient's floor/unit and/or counseling patient: Coding Level of Care Code 18875 SUB INP/OBS CARE 2/35MIN Diagnoses Bilateral lower leg cellulitis L03.116; L03.115 Chest pain R07.9 Uncontrolled type 2 diabetes mellitus, with long-term current use of insulin Obstructive sleep apnea of adult G47.33 Obesity hypoventilation syndrome E66.2 Hypertension I10 GERD (gastroesophageal reflux disease) K21.9 Esophagitis presence: without esophagitis Enlarged prostate with lower urinary tract symptoms (LUTS) N40.1; R39.12 Lower urinary tract symptom detail: weak urinary stream Dyslipidemia E78.5 COPD (chronic obstructive pulmonary disease) J44.9 COPD type: unspecified COPD CKD (chronic kidney disease) stage 4, GFR 15-29 ml/min N18.4 (1) Enlarged prostate with lower urinary tract symptoms (LUTS) Lower urinary tract symptom detail: weak urinary stream Qualified Code(s): N40.1 - Benign prostatic hyperplasia with lower urinary tract symptoms; R39.12 - Poor urinary stream (2) COPD (chronic obstructive pulmonary disease) COPD type: unspecified COPD Qualified Code(s): J44.9 - Chronic obstructive pulmonary disease, unspecified (3) GERD (gastroesophageal reflux disease) Esophagitis presence: without esophagitis Qualified Code(s): K21.9 - Gastro- esophageal reflux disease without esophagitis
[2022-09-10] MEDS: ACETAMINOPHEN 325 MG TAB PO PRN ×2 (16:50→21:43)
[2022-09-10] MEDS: ATORVASTATIN 40 MG TAB PO SCH (20:27)
[2022-09-10] MEDS: ASPIRIN 81 MG ECTAB PO SCH (20:28)
[2022-09-10] MEDS: MELATONIN 3 MG TAB PO PRN (20:28)
[2022-09-11 07:04] LABS: Hematocrit (blood only) 42.4 % (40.1-51.0); Hemoglobin 13.3 g/dl (14.0-18.0); Mean Corpuscular Hemoglobin 30.3 pg (25.0-34.0); Mean Corpuscular Hgb Conc 31.4 g/dL (32.0-36.0); Mean Corpuscular Volume 96.6 fL (80.0-100.0); Mean Platelet Volume 9.7 fL (9.4-12.4); Platelet Count 152 K/uL (130-400); RDW Coefficient of Variation 14.8 % (11.5-14.5); RDW Standard Deviation 53.1 fL (36.4-46.3); Red Blood Count 4.39 M/uL (4.63-6.08); White Blood Count 10.16 K/ul (4.8-10.8)
[2022-09-11 07:29] LABS: BUN Creatinine Ratio 14.1 (10-20); C Reactive Protein 13.27 mg/dl (0-0.5); Calcium 8.7 mg/dl (8.5-10.1); Creatinine Clr Calc Pharmacy 46.7 ml/min; Est GFR (African American) 36.9 ml/min; Est GFR (Non-African American) 31.9 ml/min; Potassium 3.6 mmol/L (3.5-5.1)
[2022-09-11] MEDS ORDERED: LANTUS PER UNIT CHARGE SQ ONE (07:45)
[2022-09-11] MEDS: CLOPIDOGREL BISULFATE 75 MG TAB PO SCH (07:53)
[2022-09-11] MEDS: GABAPENTIN 300 MG CAP PO SCH ×2 (07:53→20:50)
[2022-09-11] MEDS: buPROPion SR 150 MG TABCR PO SCH ×2 (07:53→20:49)
[2022-09-11] MEDS: METOPROLOL TARTRATE 100 MG TAB PO SCH ×2 (07:54→20:50)
[2022-09-11] MEDS: FINASTERIDE 5 MG TAB PO SCH (07:54)
[2022-09-11] MEDS: ENOXAPARIN INJ 40 MG/0.4 ML SYR SQ SCH (07:55)
[2022-09-11] MEDS: FLUTICASONE/VILANTEROL 100/25MCG 14 PUFFS/INHALER INH SCH (07:59)
[2022-09-11] MEDS: INSULIN ASPART PER UNIT SC SCH ×4 (09:03→20:15)
[2022-09-11] MEDS: CEFEPIME 2,000 MG in SYRINGE 0 ML IV SCH (13:49)
--- NOTE | 2022-09-11 16:35 | Surgery Consultation ---
Date of Consultation September 11, 2022 Assessment & Plan (1) Perineal abscess: Patient neither has what appears to be chronic perineal abscess or even fistula The site is very tender-there is no significant surrounding erythema or inflammation Would place dressing and have the patient either sit or lay supine to put pressure on the area I think a CT scan of the pelvis may help us which is not an emergency and can be done tomorrow Replace dressing as needed History of Present Illness Attending Physician: Mauricio Gonzalez History of Present Illness 72-year-old male I was called to see for spontaneous perineal bleeding Patient has had some perineal pain at home and the nurses noted significant bleeding from his perineum which seems to be dark blood Patient admitted with chest pain and elevation of his troponin and bilateral lower extremity edema Initial white count 12.9 now 10.1 Allergies Allergy/AdvReac Type Severity Reaction Status Date / Time No Known Allergies Allergy Verified 07/20/22 08:43 Home Medications Medication Instructions Recorded Confirmed Type cholecalciferol (vitamin D3) 25 1,000 unit PO BID 08/22/18 07/20/22 History mcg (1,000 unit) tablet (Vitamin D3) acetaminophen 325 mg tablet 650 mg PO TID PRN Pain 04/27/20 07/20/22 History aspirin 81 mg tablet,delayed 81 mg PO QPM 06/08/20 07/20/22 History release pantoprazole 40 mg tablet,delayed 40 mg PO DAILY PRN GERD #90 tabs 02/24/21 07/20/22 Rx release (Protonix) albuterol sulfate 0.63 mg/3 mL 0.63 mg continuous nebulization 03/27/21 07/20/22 History solution for nebulization QID PRN Shortness Of Breath Or Wheezing atorvastatin 40 mg tablet (Lipitor) 40 mg PO HS #30 tabs 05/10/21 07/20/22 Rx insulin regular human 100 unit/mL 35 unit subcut BID 09/23/21 07/20/22 History injection solution (Novolin R Regular U-100 Insulin) Trulicity 1.5 mg/0.5 mL 1.5 mg (0.5 mL) subcut Q7D 90 days 11/03/21 07/20/22 Rx subcutaneous pen injector #12 SYRINGES (dulaglutide) gabapentin 300 mg capsule 300 mg PO BID #180 caps 12/17/21 07/20/22 Rx metoprolol tartrate 100 mg tablet 100 mg PO BID #180 tabs 12/17/21 07/20/22 Rx (Lopressor) insulin degludec 200 unit/mL (3 60 unit (0.3 mL) subcut HS #1 box 01/28/22 07/20/22 Rx mL) subcutaneous pen (Tresiba FlexTouch U-200 insulin) bupropion HCl 150 mg tablet,12 hr 150 mg PO BID 90 days #180 ea 03/23/22 07/20/22 Rx sustained-release clopidogrel 75 mg tablet 75 mg PO QAM #90 tabs 04/04/22 07/20/22 Rx ipratropium 0.5 mg-albuterol 3 mg 3 ml inhalation Q4 PRN wheezing 06/07/22 07/11/22 Rx (2.5 mg base)/3 mL nebulization #360 mL soln fluticasone furoate 100 1 inh inhalation DAILY #60 ea 06/27/22 07/20/22 Rx mcg-vilanterol 25 mcg/dose inhalation powder (Breo Ellipta) polymyxin B sulfate 10,000 1 drp ophthalmic (eye) Q3H 7 days 07/11/22 07/20/22 Rx unit-trimethoprim 1 mg/mL eye #10 mL drops (Polytrim) furosemide 20 mg tablet 20 mg PO DAILY Edema #90 tabs 07/20/22 07/20/22 Rx finasteride 5 mg tablet (Proscar) 5 mg PO QAM #90 tabs 08/15/22 Rx Patient History Medical History BPH (benign prostatic hyperplasia) CAD (coronary artery disease) Acute [facility] 03/2011, complicated by 3 episodes of v fib requiring electrical shock- ZITA x2 Chronic kidney disease With recent EDILMA on CKD. COPD (chronic obstructive pulmonary disease) Severe, per pulm- 2L N/C prn COVID-19 Dyslipidemia History of [facility] (myocardial infarction) Acute [facility] 03/2011, complicated by 3 episodes of v fib requiring electrical shock- ZITA x2 Hyperkalemia Hypophosphatemia Morbid obesity with BMI of 40.0-44.9, adult Nephrolithiasis Admitted to [facility] for 7 mm L ureteral stone causing hydronephrosis/EDILMA Obstructive sleep apnea of adult Patient refuses CPAP. On anticoagulant therapy plavix daily On home oxygen therapy 2L N/C prn Peripheral neuropathy SBO (small bowel obstruction) current diagnosis--reason for scheduled colonoscopy Screening PSA (prostate specific antigen) Uncontrolled type 2 diabetes mellitus with diabetic neuropathy, with long-term current use of insulin UTI (urinary tract infection) Surgical History History of bilateral cataract extraction History of cardiac cath 2011- stents x2 History of carpal tunnel release right History of colonoscopy Colonoscopy: 03/18/19: MAC sedation at [facility] History of lithotripsy Left ESWL: 09/14/18: LMA#5 at [facility] (weight at time: 135.1kg) History of lithotripsy Left ESWL 06/07/19 [facility] History of tooth extraction Hx of transurethral resection of prostate S/P cystoscopy with ureteral stent placement mulitple---last 04/16/20, 03/05/2020 08/23/2018. MAC. No issues. Family History Mother Family history of diabetes mellitus Coronary heart disease [facility] Father Coronary heart disease [facility] Myocardial infarction Other No family history of adverse response to anesthesia Denies family history of Ovarian cancer Prostate cancer Breast cancer Colorectal cancer Social History Smoking Status: Never smoker Tobacco Type: Cigarettes Age Started Using Tobacco: 16; Age Quit Using Tobacco: 62; Cigarettes Per Day: 20-30 a clinton; Second Hand Exposure: No; Do You Dip or Chew Tobacco: No; Hx Alcohol Use: No Hx Substance Use: No Preferred Language: Belgian Communication Ability: Effective Visual Impairment: No Limitations Hearing Ability: Normal Reversing [place] Required: No Beliefs That Will Affect Care: None marital status: Current Living Situation: Spouse current occupational status: retired How many Children do You have: 3 Other Information That Helps Us Care for You: No Feels Safe at Home: Yes Safety Concerns: Feels Safe At This Time Childhood Exposure to Second-Hand Smoke: Yes caffeine: Yes (Tea and soda ) Dental Care, Regularly: Yes Physical Activity Frequency: Does not Exercise Seatbelt Use: sometimes Sunscreen Use: No Assistive Devices: Cane, CPAP, Glasses, Oxygen - Continuous and Walker Review of Systems Review of Systems: All systems reviewed & are unremarkable except as noted in HPI & below Physical Exam Physical Exam: Patient has a's small opening in the midline anteriorly in the perineum between the anus and the scrotum which shows an area of fluctuance and on palpation dark blood comes from the opening There is some indurated tissue around this area and it may be a fistula or abscess No significant erythema but there is tenderness Constitutional: well developed; no acute distress Eyes: + anicteric sclerae Respiratory: normal respiratory effort; no respiratory distress Cardiovascular: Rate/Rhythm: regular rate Gastrointestinal (Abdomen): Inspection/Auscultation: abdomen not distended Musculoskeletal: Head/Neck/Chest: head atraumatic Skin: no rashes, warm and dry Neurologic: awake Psychiatric: Orientation: alert Results & Data ([facility]) Vital Signs (Past 12 Hours) Vital Signs Temp Pulse Pulse Resp BP Pulse Ox O2 Del Method 09/11/22 15:00 68 09/11/22 15:30 37.1 C 69 18 126/74 96 Nasal Cannula 09/11/22 11:40 36.9 C 80 20 120/69 97 Nasal Cannula 09/11/22 10:33 Nasal Cannula 09/11/22 07:27 36.8 C 65 18 133/68 98 Nasal Cannula 09/11/22 07:16 63 09/11/22 06:03 36.8 C 71 18 138/78 97 Nasal Cannula O2 Flow Rate 09/11/22 15:00 09/11/22 15:30 4 09/11/22 11:40 4 09/11/22 10:33 4 09/11/22 07:27 4 09/11/22 07:16 09/11/22 06:03 2 PG Care Time/CCT Total # of Minutes Spent Total Time Spent with Patient: Total time spent is greater than 50% in coordination of care (as documented) at patient's floor/unit and/or counseling patient: Coding Level of Care Code 38933 INT INP/OBS CARE 40MIN Diagnoses Perineal abscess L02.215
[2022-09-11] MEDS: MELATONIN 3 MG TAB PO PRN (20:51)
[2022-09-11] MEDS: ASPIRIN 81 MG ECTAB PO SCH (20:51)
[2022-09-11] MEDS: ATORVASTATIN 40 MG TAB PO SCH (20:51)
[2022-09-11] MEDS: LANTUS PER UNIT CHARGE SQ SCH (20:52)
--- NOTE | 2022-09-11 21:27 | Hospitalist Progress Note ---
Date of Service September 11, 2022 Assessment & Plan (1) Bilateral lower leg cellulitis: Plan: Patient admitted for chest pain, which was ruled out by cardio as non cardiac. Patient though is having lower extremity pain. Also has elevated WBC, will place on antibiotics. will hold MRSA coverage unless clinical picture does not improve. On 09/11, legs appeared to be improving. will continue, will repeat diuretics on 09/12 (2) Chest pain: Plan: 72yo male with a history of HTN, HLD, CAD (s/p stent placement 10+ years ago), T2DM, CKD4, COPD, OHS, SREEKANTH, diabetic gastroparesis, diabetic nephropathy, BPH with LUTS, GERD, and MDD presents with a few-hour history of chest pain. Chest pain possibly secondary to NSTEMI Patient presents with a few-hour history of CP Initial vitals notable only for elevated BP Initial labs notable for leukocytosis (15.1), elevated creatinine (1.94), elevated alkphos (130), and elevated hsTroponin (47.6) EKG: NSR, no overt ischemic change Two-hour repeat hsTroponin lower than prior (47.6 --> 45); no further repeat values indicated Cardiology consulted Echo ordered HbA1c and lipid profile ordered Nitro prn chest pain, zofran prn nausea No further work up DM2 HbA1c 9.6% (06/2022); repeat value ordered Patient's home regimen held on admission Continue BSG checks, sliding-scale insulin, hypoglycemic protocol CKD4 Creatinine on admission elevated to 1.94 (at baseline) Avoid nephrotoxins if able, encourage PO intake when no longer NPO, trend BMP HTN: home metoprolol HLD, CAD: home atorvastatin, ASA COPD: home inhaler regimen BPH with LUTS: home finasteride GERD: home protonix MDD: home bupropion SREEKANTH, OHS: patient refuses CPAP FEN: NPO pending possible catheterization Code status: full code DVT ppx: SCDs Consults: cardiology PT/OT: ordered Dispo: med/telemetry (3) Uncontrolled type 2 diabetes mellitus, with long-term current use of insulin: (4) Obstructive sleep apnea of adult: (5) Obesity hypoventilation syndrome: (6) Hypertension: (7) GERD (gastroesophageal reflux disease): (8) Enlarged prostate with lower urinary tract symptoms (LUTS): (9) Dyslipidemia: (10) COPD (chronic obstructive pulmonary disease): (11) CKD (chronic kidney disease) stage 4, GFR 15-29 ml/min: (12) Perineal abscess: Plan: LIkely perineal abscess, will monitor. on cefepime, likely will need anaerobic coverage. will check ct scan in AM. consult gen surgery Admission and Anticipated Discharge Date Admission Date: September 09, 2022 Subjective 72 yo male reports feeling well. Durint the day, nurse called and had me evaluate his buttocks as he was seeping blood. Review of Systems Review of Systems: All systems reviewed & are unremarkable except as noted in HPI & below Physical Exam Physical Exam: Constitutional: well-appearing, no acute distress HEENT: NCAT, no conjunctival injection CV: regular rhythm, no murmur appreciated, extremities well-perfused, no LE edema Resp: CTABL, no wheezes/rales/rhonchi appreciated, no increased work of breath ing GI: soft, nondistended, nontender, BS normoactive MSK: no gross deformities appreciated, no chest wall tenderness to palpation Skin: warm, dry, no rash appreciated, cellutlits noted on lower legs with venous stasis changes, legs appear less erythematous. Neuro: alert, oriented, no focal neurologic deficit appreciated Results & Data Results & Data ([facility]) Vital Signs (Past 12 Hours) Vital Signs Temp Pulse Pulse Resp BP Pulse Ox O2 Del Method 09/11/22 19:27 37.2 C 68 18 116/67 96 Room Air 09/11/22 15:00 68 09/11/22 15:30 37.1 C 69 18 126/74 96 Nasal Cannula 09/11/22 11:40 36.9 C 80 20 120/69 97 Nasal Cannula 09/11/22 10:33 Nasal Cannula O2 Flow Rate 09/11/22 19:27 09/11/22 15:00 09/11/22 15:30 4 09/11/22 11:40 4 09/11/22 10:33 4 PG Care Time/CCT Total # of Minutes Spent Total Time Spent with Patient: Total time spent is greater than 50% in coordination of care (as documented) at patient's floor/unit and/or counseling patient: Coding Level of Care Code 72709 SUB INP/OBS CARE 3/50MIN Diagnoses Bilateral lower leg cellulitis L03.116; L03.115 Chest pain R07.9 Uncontrolled type 2 diabetes mellitus, with long-term current use of insulin Obstructive sleep apnea of adult G47.33 Obesity hypoventilation syndrome E66.2 Hypertension I10 GERD (gastroesophageal reflux disease) K21.9 Esophagitis presence: without esophagitis Enlarged prostate with lower urinary tract symptoms (LUTS) N40.1; R39.12 Lower urinary tract symptom detail: weak urinary stream Dyslipidemia E78.5 COPD (chronic obstructive pulmonary disease) J44.9 COPD type: unspecified COPD CKD (chronic kidney disease) stage 4, GFR 15-29 ml/min N18.4 Perineal abscess L02.215 (1) Enlarged prostate with lower urinary tract symptoms (LUTS) Lower urinary tract symptom detail: weak urinary stream Qualified Code(s): N40.1 - Benign prostatic hyperplasia with lower urinary tract symptoms; R39.12 - Poor urinary stream (2) COPD (chronic obstructive pulmonary disease) COPD type: unspecified COPD Qualified Code(s): J44.9 - Chronic obstructive pulmonary disease, unspecified (3) GERD (gastroesophageal reflux disease) Esophagitis presence: without esophagitis Qualified Code(s): K21.9 - Gastro-esophageal reflux disease without esophagitis
[2022-09-12 06:46] LABS: Hemoglobin 12.8 g/dl (14.0-18.0); Mean Corpuscular Hemoglobin 30.3 pg (25.0-34.0); Mean Corpuscular Hgb Conc 31.2 g/dL (32.0-36.0); Mean Corpuscular Volume 96.9 fL (80.0-100.0); Mean Platelet Volume 10.1 fL (9.4-12.4); Platelet Count 158 K/uL (130-400); RDW Coefficient of Variation 14.8 % (11.5-14.5); RDW Standard Deviation 52.8 fL (36.4-46.3); Red Blood Count 4.23 M/uL (4.63-6.08); White Blood Count 7.96 K/ul (4.8-10.8)
[2022-09-12 07:04] LABS: BUN Creatinine Ratio 14.6 (10-20); C Reactive Protein 8.66 mg/dl (0-0.5); Calcium 8.6 mg/dl (8.5-10.1); Creatinine Clr Calc Pharmacy 48.3 ml/min; Est GFR (African American) 38.3 ml/min; Potassium 3.7 mmol/L (3.5-5.1)
[2022-09-12] MEDS: GABAPENTIN 300 MG CAP PO SCH ×2 (09:07→20:26)
[2022-09-12] MEDS: buPROPion SR 150 MG TABCR PO SCH ×2 (09:07→20:26)
[2022-09-12] MEDS: INSULIN ASPART PER UNIT SC SCH ×4 (09:07→20:24)
[2022-09-12] MEDS: METOPROLOL TARTRATE 100 MG TAB PO SCH ×2 (09:07→20:25)
[2022-09-12] MEDS: ENOXAPARIN INJ 40 MG/0.4 ML SYR SQ SCH (09:08)
[2022-09-12] MEDS: FINASTERIDE 5 MG TAB PO SCH (09:08)
[2022-09-12] MEDS: FLUTICASONE/VILANTEROL 100/25MCG 14 PUFFS/INHALER INH SCH (09:08)
--- NOTE | 2022-09-12 09:25 | CT Scan Report ---
CT pelvis wo con HISTORY: 72 years-old Male Rule out perirectal fistula, perineal fistula/absc acute rectal pain. Cli nical concern for a perirectal fistula or abscess. COMPARISON: CT abdomen and pelvis 03/27/2021 TECHNIQUE: Multiple axial CT images of the pelvis were obtained without the use of IV contrast. A dos e lowering technique was used consistent with the principals of LE. FINDINGS: Decompressed urinary bladder. Fat filled right inguinal hernia. Moderate colonic fecal retention. No bowel obstruction or bowel wall thickening. No CT evidence of acute appendicitis. Small fat filled um bilical hernia, diastases of 2.8 cm. Degenerative changes of the spine, pelvis and hips. No acute fra cture, osseous erosion or suspicious bone lesion identified. There is a linear area of soft tissue thickening extending towards the 12:00 anus on image 284 series 3. No adjacent inflammatory stranding or fluid collection. No supralevator extension. Additionally, there is moderate subcutaneous edema with a focus of subcutaneous air within the left perineum extend ing into the posterior scrotum. No fluid collection. IMPRESSION: 1. Mild cellulitis of the perineum and posterior scrotum with a focus of subcutaneous emphysema. No a bscess identified. 2. Linear tract of soft tissue thickening extending from the anus into the left medial gluteal fold m ay represent a perianal fistula. ACT 112: Negative or not required by law. The above report was generated using voice recognition software. It may contain grammatical, syntax o r spelling errors. Electronically signed by: Kosta Wild M.D. 09/12/2022 9:22 AM
--- NOTE | 2022-09-12 09:51 | Surgery Progress Note ---
Date of Service September 12, 2022 Assessment & Plan (1) Perineal abscess: Plan: I suspect the patient may have a chronic anorectal fistula with no overt abscess at the present time I think this spontaneously drained The patient is on Plavix which can create some increased bleeding We will treat him with p.o. antibiotics for 7 to 10 days Follow-up in the office Admission and Anticipated Discharge Date Admission Date: September 09, 2022 Subjective Patient without significant bleeding overnight from the perineal area He underwent pelvic CT which does show an area of inflammation but no overt abscess I suspect this could be a chronic fistula We will treat this with p.o. antibiotics for now and follow in the office Physical Exam Physical Exam: Patient awake and alert He is in no distress Dressing is in place without acute bleeding Results & Data ([facility]) Vital Signs (Past 12 Hours) Vital Signs Temp Pulse Pulse Resp BP BP Pulse Ox 09/12/22 08:00 37 C 66 20 121/75 97 09/12/22 06:53 62 09/12/22 02:45 37.3 C 71 18 107/67 93 09/11/22 22:09 72 09/11/22 22:51 37.2 C 68 18 104/64 98 O2 Del Method O2 Flow Rate 09/12/22 08:00 Nasal Cannula 4 09/12/22 06:53 09/12/22 02:45 Nasal Cannula 4 09/11/22 22:09 09/11/22 22:51 Nasal Cannula 4 PG Care Time/CCT Total # of Minutes Spent Total Time Spent with Patient: Total time spent is greater than 50% in coordination of care (as documented) at patient's floor/unit and/or counseling patient: Coding Level of Care Code 22657 SUB INP/OBS CARE 09/21MIN Diagnoses Perineal abscess L02.215
[2022-09-12] MEDS: CEFEPIME 2,000 MG in SYRINGE 0 ML IV SCH (12:48)
[2022-09-12] MEDS ORDERED: FUROSEMIDE 40 MG/4 ML VIAL IV ONE (14:34)
[2022-09-12] MEDS: POLYETHYLENE (MIRALAX) 17 GM PACK PO SCH (20:23)
[2022-09-12] MEDS: AMMONIUM LACTATE 12% LOTION 225 GM BTL EXT SCH (20:23)
[2022-09-12] MEDS: LANTUS PER UNIT CHARGE SQ SCH (20:23)
[2022-09-12] MEDS: ACETAMINOPHEN 325 MG TAB PO PRN (20:24)
[2022-09-12] MEDS: MELATONIN 3 MG TAB PO PRN (20:25)
[2022-09-12] MEDS: ATORVASTATIN 40 MG TAB PO SCH (20:25)
[2022-09-12] MEDS: ASPIRIN 81 MG ECTAB PO SCH (20:26)
--- NOTE | 2022-09-12 22:05 | Hospitalist Progress Note ---
Date of Service September 12, 2022 Assessment & Plan (1) Bilateral lower leg cellulitis: Plan: Patient admitted for chest pain, which was ruled out by cardio as non cardiac. Patient though is having lower extremity pain. Also has elevated WBC, will place on antibiotics. will hold MRSA coverage unless clinical picture does not improve. On 09/11, legs appeared to be improving. will continue, will repeat diuretics on 09/12 Legs appear less erythematous. will closely monitor. (2) Chest pain: Plan: 72yo male with a history of HTN, HLD, CAD (s/p stent placement 10+ years ago), T2DM, CKD4, COPD, OHS, SREEKANTH, diabetic gastroparesis, diabetic nephropathy, BPH with LUTS, GERD, and MDD presents with a few-hour history of chest pain. Chest pain possibly secondary to NSTEMI Patient presents with a few-hour history of CP Initial vitals notable only for elevated BP Initial labs notable for leukocytosis (15.1), elevated creatinine (1.94), elevated alkphos (130), and elevated hsTroponin (47.6) EKG: NSR, no overt ischemic change Two-hour repeat hsTroponin lower than prior (47.6 --> 45); no further repeat values indicated Cardiology consulted Echo ordered HbA1c and lipid profile ordered Nitro prn chest pain, zofran prn nausea No further work up DM2 HbA1c 9.6% (06/2022); repeat value ordered Patient's home regimen held on admission Continue BSG checks, sliding-scale insulin, hypoglycemic protocol CKD4 Creatinine on admission elevated to 1.94 (at baseline) Avoid nephrotoxins if able, encourage PO intake when no longer NPO, trend BMP HTN: home metoprolol HLD, CAD: home atorvastatin, ASA COPD: home inhaler regimen BPH with LUTS: home finasteride GERD: home protonix MDD: home bupropion SREEKANTH, OHS: patient refuses CPAP FEN: NPO pending possible catheterization Code status: full code DVT ppx: SCDs Consults: cardiology PT/OT: ordered Dispo: med/telemetry (3) Uncontrolled type 2 diabetes mellitus, with long-term current use of insulin: (4) Obstructive sleep apnea of adult: (5) Obesity hypoventilation syndrome: (6) Hypertension: (7) GERD (gastroesophageal reflux disease): (8) Enlarged prostate with lower urinary tract symptoms (LUTS): (9) Dyslipidemia: (10) COPD (chronic obstructive pulmonary disease): (11) CKD (chronic kidney disease) stage 4, GFR 15-29 ml/min: (12) Perineal abscess: Plan: LIkely perineal abscess, will monitor. on cefepime, likely will need anaerobic coverage. completed CT scan on 09/12 will transition to augmentin in AM. consult gen surgery Admission and Anticipated Discharge Date Admission Date: September 09, 2022 Subjective 72 yo male reports no new symptoms. Review of Systems Review of Systems: All systems reviewed & are unremarkable except as noted in HPI & below Physical Exam Physical Exam: Constitutional: well-appearing, no acute distress HEENT: NCAT, no conjunctival injection CV: regular rhythm, no murmur appreciated, extremities well-perfused, no LE edema Resp: CTABL, no wheezes/rales/rhonchi appreciated, no increased work of breathing GI: soft, nondistended, nontender, BS normoactive MSK: no gross deformities appreciated, no chest wall tenderness to palpation Skin: warm, dry, no rash appreciated, cellutlits noted on lower legs with venous stasis changes, legs appear less erythematous. Neuro: alert, oriented, no focal neurologic deficit appreciated Results & Data Results & Data ([facility]) Vital Signs (Past 12 Hours) Vital Signs Temp Pulse Pulse Resp BP Pulse Ox O2 Del Method 09/12/22 19:11 37.2 C 69 18 100/60 94 Nasal Cannula 09/12/22 15:39 36.9 C 63 20 113/69 96 Nasal Cannula 09/12/22 15:26 63 09/12/22 15:12 Nasal Cannula 09/12/22 11:21 37 C 74 20 119/68 93 Nasal Cannula O2 Flow Rate 09/12/22 19:11 4 09/12/22 15:39 3 09/12/22 15:26 09/12/22 15:12 4 09/12/22 11:21 3 PG Care Time/CCT Total # of Minutes Spent Total Time Spent with Patient: Total time spent is greater than 50% in coordination of care (as documented) at patient's floor/unit and/or counseling patient: Coding Level of Care Code 62989 SUB INP/OBS CARE 2/35MIN Diagnoses Bilateral lower leg cellulitis L03.116; L03.115 Chest pain R07.9 Uncontrolled type 2 diabetes mellitus, with long-term current use of insulin Obstructive sleep apnea of adult G47.33 Obesity hypoventilation syndrome E66.2 Hypertension I10 GERD (gastroesophageal reflux disease) K21.9 Esophagitis presence: without esophagitis Enlarged prostate with lower urinary tract symptoms (LUTS) N40.1; R39.12 Lower urinary tract symptom detail: weak urinary stream Dyslipidemia E78.5 COPD (chronic obstructive pulmonary disease) J44.9 COPD type: unspecified COPD CKD (chronic kidney disease) stage 4, GFR 15-29 ml/min N18.4 Perineal abscess L02.215 (1) Enlarged prostate with lower urinary tract symptoms (LUTS) Lower urinary tract symptom detail: weak urinary stream Qualified Code(s): N40.1 - Benign prostatic hyperplasia with lower urinary tract symptoms; R39.12 - Poor urinary stream (2) COPD (chronic obstructive pulmonary disease) COPD type: unspecified COPD Qualified Code(s): J44.9 - Chronic obstructive pulmonary disease, unspecified (3) GERD (gastroesophageal reflux disease) Esophagitis presence: without esophagitis Qualified Code(s): K21.9 - Gastro- esophageal reflux disease without esophagitis
[2022-09-13 06:46] LABS: Hematocrit (blood only) 41.9 % (40.1-51.0); Hemoglobin 13.1 g/dl (14.0-18.0); Mean Corpuscular Hemoglobin 30.2 pg (25.0-34.0); Mean Corpuscular Hgb Conc 31.3 g/dL (32.0-36.0); Mean Corpuscular Volume 96.5 fL (80.0-100.0); Mean Platelet Volume 9.7 fL (9.4-12.4); Platelet Count 166 K/uL (130-400); RDW Coefficient of Variation 14.6 % (11.5-14.5); RDW Standard Deviation 52.3 fL (36.4-46.3); Red Blood Count 4.34 M/uL (4.63-6.08); White Blood Count 6.84 K/ul (4.8-10.8)
[2022-09-13 07:32] LABS: BUN Creatinine Ratio 13.9 (10-20); C Reactive Protein 4.28 mg/dl (0-0.5); Calcium 8.8 mg/dl (8.5-10.1); Creatinine Clr Calc Pharmacy 42.9 ml/min; Est GFR (African American) 33.4 ml/min; Est GFR (Non-African American) 28.8 ml/min; Potassium 3.6 mmol/L (3.5-5.1)
[2022-09-13] MEDS: FLUTICASONE/VILANTEROL 100/25MCG 14 PUFFS/INHALER INH SCH (08:14)
[2022-09-13] MEDS: AMMONIUM LACTATE 12% LOTION 225 GM BTL EXT SCH ×2 (08:14→19:50)
[2022-09-13] MEDS: METOPROLOL TARTRATE 100 MG TAB PO SCH ×2 (08:14→19:49)
[2022-09-13] MEDS: buPROPion SR 150 MG TABCR PO SCH ×2 (08:14→19:50)
[2022-09-13] MEDS: GABAPENTIN 300 MG CAP PO SCH ×2 (08:14→19:49)
[2022-09-13] MEDS: FINASTERIDE 5 MG TAB PO SCH (08:15)
[2022-09-13] MEDS: POLYETHYLENE (MIRALAX) 17 GM PACK PO SCH ×3 (08:15→19:49)
[2022-09-13] MEDS: ENOXAPARIN INJ 40 MG/0.4 ML SYR SQ SCH (08:15)
[2022-09-13] MEDS: INSULIN ASPART PER UNIT SC SCH ×4 (08:19→20:15)
--- NOTE | 2022-09-13 08:23 | Surgery Progress Note ---
Date of Service September 13, 2022 Assessment & Plan (1) Perineal abscess: Plan: Treat patient with p.o. antibiotics for at least 10 days-possibly Augmentin Can see in follow-up in the office in 2 to 3 weeks Surgery will sign off Admission and Anticipated Discharge Date Admission Date: September 09, 2022 Subjective Patient without significant bleeding and less pain Review of Systems Review of Systems: All systems reviewed & are unremarkable except as noted in HPI & below Physical Exam Physical Exam: Patient has perineal dressing in place with no evidence of active bleeding Results & Data ([facility]) Vital Signs (Past 12 Hours) Vital Signs Temp Pulse Pulse Resp BP BP Pulse Ox 09/13/22 08:00 36.9 C 63 20 133/79 96 09/13/22 07:29 09/13/22 03:15 36.6 C 67 18 105/65 93 09/12/22 23:58 09/12/22 22:02 66 09/12/22 22:38 37.3 C 70 18 111/69 94 O2 Del Method O2 Flow Rate 09/13/22 08:00 Nasal Cannula 4 09/13/22 07:29 Nasal Cannula 4 09/13/22 03:15 Nasal Cannula 4 09/12/22 23:58 Nasal Cannula 4 09/12/22 22:02 09/12/22 22:38 Nasal Cannula 4 PG Care Time/CCT Total # of Minutes Spent Total Time Spent with Patient: Total time spent is greater than 50% in coordination of care (as documented) at patient's floor/unit and/or counseling patient: Coding Level of Care Code 12172 SUB INP/OBS CARE 25MIN Diagnoses Perineal abscess L02.215
[2022-09-13] MEDS: ASPIRIN 81 MG ECTAB PO SCH (19:49)
[2022-09-13] MEDS: ATORVASTATIN 40 MG TAB PO SCH (19:49)
[2022-09-13] MEDS: LANTUS PER UNIT CHARGE SQ SCH (20:15)
--- NOTE | 2022-09-13 22:20 | Hospitalist Progress Note ---
Date of Service September 13, 2022 Assessment & Plan (1) Bilateral lower leg cellulitis: Plan: Patient admitted for chest pain, which was ruled out by cardio as non cardiac. Patient though is having lower extremity pain. Also has elevated WBC, will place on antibiotics. will hold MRSA coverage unless clinical picture does not improve. On 09/11, legs appeared to be improving. will continue, will repeat diuretics on 09/12 Legs appear less erythematous. will closely monitor. 09/13 transitioned to augmentin. will monitor his legs. Patient does feel better (2) Chest pain: Plan: 72yo male with a history of HTN, HLD, CAD (s/p stent placement 10+ years ago), T2DM, CKD4, COPD, OHS, SREEKANTH, diabetic gastroparesis, diabetic nephropathy, BPH with LUTS, GERD, and MDD presents with a few-hour history of chest pain. Chest pain possibly secondary to NSTEMI Patient presents with a few-hour history of CP Initial vitals notable only for elevated BP Initial labs notable for leukocytosis (15.1), elevated creatinine (1.94), elevated alkphos (130), and elevated hsTroponin (47.6) EKG: NSR, no overt ischemic change Two-hour repeat hsTroponin lower than prior (47.6 --> 45); no further repeat values indicated Cardiology consulted Echo ordered HbA1c and lipid profile ordered Nitro prn chest pain, zofran prn nausea No further work up DM2 HbA1c 9.6% (06/2022); repeat value ordered Patient's home regimen held on admission Continue BSG checks, sliding-scale insulin, hypoglycemic protocol CKD4 Creatinine on admission elevated to 1.94 (at baseline) Avoid nephrotoxins if able, encourage PO intake when no longer NPO, trend BMP HTN: home metoprolol HLD, CAD: home atorvastatin, ASA COPD: home inhaler regimen BPH with LUTS: home finasteride GERD: home protonix MDD: home bupropion SREEKANTH, OHS: patient refuses CPAP FEN: NPO pending possible catheterization Code status: full code DVT ppx: SCDs Consults: cardiology PT/OT: ordered Dispo: med/telemetry L (3) Uncontrolled type 2 diabetes mellitus, with long-term current use of insulin: (4) Obstructive sleep apnea of adult: (5) Obesity hypoventilation syndrome: (6) Hypertension: (7) GERD (gastroesophageal reflux disease): (8) Enlarged prostate with lower urinary tract symptoms (LUTS): (9) Dyslipidemia: (10) COPD (chronic obstructive pulmonary disease): (11) CKD (chronic kidney disease) stage 4, GFR 15-29 ml/min: (12) Perineal abscess: Plan: LIkely perineal abscess, will monitor. on cefepime, likely will need anaerobic coverage. completed CT scan on 09/12 will transition to augmentin in AM. consult gen surgery Admission and Anticipated Discharge Date Admission Date: September 09, 2022 Subjective 72 yo male reports no new symptoms. Legs do feel better. Review of Systems Review of Systems: All systems reviewed & are unremarkable except as noted in HPI & below Physical Exam Physical Exam: Constitutional: well-appearing, no acute distress HEENT: NCAT, no conjunctival injection CV: regular rhythm, no murmur appreciated, extremities well-perfused, no LE edema Resp: CTABL, no wheezes/rales/rhonchi appreciated, no increased work of breathing GI: soft, nondistended, nontender, BS normoactive MSK: no gross deformities appreciated, no chest wall tenderness to palpation Skin: warm, dry, no rash appreciated, cellutlits noted on lower legs with venous stasis changes, legs appear less erythematous. Neuro: alert, oriented, no focal neurologic deficit appreciated Results & Data Results & Data ([facility]) Vital Signs (Past 12 Hours) Vital Signs Temp Pulse Pulse Resp BP BP Pulse Ox 09/13/22 20:46 09/13/22 19:37 37.0 C 70 18 112/65 96 09/13/22 14:37 64 09/13/22 15:39 37.5 C 64 20 113/65 97 09/13/22 10:49 37.0 C 66 20 153/79 H 97 O2 Del Method O2 Flow Rate 09/13/22 20:46 Nasal Cannula 4 09/13/22 19:37 Nasal Cannula 4 09/13/22 14:37 09/13/22 15:39 Nasal Cannula 4 09/13/22 10:49 Nasal Cannula 4 PG Care Time/CCT Total # of Minutes Spent Total Time Spent with Patient: Total time spent is greater than 50% in coordination of care (as documented) at patient's floor/unit and/or counseling patient: Coding Level of Care Code 02638 SUB INP/OBS CARE 2/35MIN Diagnoses Bilateral lower leg cellulitis L03.116; L03.115 Chest pain R07.9 Uncontrolled type 2 diabetes mellitus, with long-term current use of insulin Obstructive sleep apnea of adult G47.33 Obesity hypoventilation syndrome E66.2 Hypertension I10 GERD (gastroesophageal reflux disease) K21.9 Esophagitis presence: without esophagitis Enlarged prostate with lower urinary tract symptoms (LUTS) N40.1; R39.12 Lower urinary tract symptom detail: weak urinary stream Dyslipidemia E78.5 COPD (chronic obstructive pulmonary disease) J44.9 COPD type: unspecified COPD CKD (chronic kidney disease) stage 4, GFR 15-29 ml/min N18.4 Perineal abscess L02.215 (1) Enlarged prostate with lower urinary tract symptoms (LUTS) Lower urinary tract symptom detail: weak urinary stream Qualified Code(s): N40.1 - Benign prostatic hyperplasia with lower urinary tract symptoms; R39.12 - Poor urinary stream (2) COPD (chronic obstructive pulmonary disease) COPD type: unspecified COPD Qualified Code(s): J44.9 - Chronic obstructive pulmonary disease, unspecified (3) GERD (gastroesophageal reflux disease) Esophagitis presence: without esophagitis Qualified Code(s): K21.9 - Gastro- esophageal reflux disease without esophagitis
[2022-09-14 07:21] LABS: Hematocrit (blood only) 42.6 % (40.1-51.0); Hemoglobin 13.3 g/dl (14.0-18.0); Mean Corpuscular Hemoglobin 30.4 pg (25.0-34.0); Mean Corpuscular Hgb Conc 31.2 g/dL (32.0-36.0); Mean Corpuscular Volume 97.5 fL (80.0-100.0); Mean Platelet Volume 9.5 fL (9.4-12.4); Platelet Count 182 K/uL (130-400); RDW Coefficient of Variation 14.4 % (11.5-14.5); Red Blood Count 4.37 M/uL (4.63-6.08); White Blood Count 8.59 K/ul (4.8-10.8)
[2022-09-14] MEDS: FLUTICASONE/VILANTEROL 100/25MCG 14 PUFFS/INHALER INH SCH (07:29)
[2022-09-14] MEDS: GABAPENTIN 300 MG CAP PO SCH (07:30)
[2022-09-14] MEDS: AMMONIUM LACTATE 12% LOTION 225 GM BTL EXT SCH (07:30)
[2022-09-14] MEDS: METOPROLOL TARTRATE 100 MG TAB PO SCH (07:30)
[2022-09-14] MEDS: ENOXAPARIN INJ 40 MG/0.4 ML SYR SQ SCH (07:30)
[2022-09-14] MEDS: POLYETHYLENE (MIRALAX) 17 GM PACK PO SCH ×2 (07:31→13:28)
[2022-09-14] MEDS: FINASTERIDE 5 MG TAB PO SCH (07:31)
[2022-09-14] MEDS: buPROPion SR 150 MG TABCR PO SCH (07:31)
[2022-09-14] MEDS: INSULIN ASPART PER UNIT SC SCH ×2 (07:50→12:25)
[2022-09-14 08:09] LABS: Calcium 8.6 mg/dl (8.5-10.1); Potassium 3.6 mmol/L (3.5-5.1)
[2022-09-14 08:15] LABS: C Reactive Protein 2.16 mg/dl (0-0.5); Creatinine Clr Calc Pharmacy 45.2 ml/min; Est GFR (African American) 35.1 ml/min; Est GFR (Non-African American) 30.3 ml/min
[2022-09-14] MEDS ORDERED: AMOXICILLIN/CLAVULANATE 875 MG TAB PO STA (15:30)
--- NOTE | 2022-09-22 16:58 | Discharge Summary ---
Date of Service September 14, 2022 Admission HPI Per Admitting Provider 72yo male with a history of HTN, HLD, CAD (s/p stent placement 10+ years ago), T2DM, CKD4, COPD, OHS, SREEKANTH, diabetic gastroparesis, diabetic nephropathy, BPH with LUTS, GERD, and MDD presents with a few-hour history of chest pain. Symptoms started suddenly this evening. Patient notes his CP feels similar to a "heart attack" he had 10+ years ago which led to stent placement. Patient denies fever, chills, headache, vision changes, SOB, abdominal pain, nausea, vomiting, hematochezia, melena, back pain, lightheadedness, dizziness, numbness, tingling, or other symptoms. Denies recent illness and recent travel. Upon arrival, vitals were notable for elevated BP (170/79) and tachypnea (26); no tachycardia, patient afebrile, spO2 adequate on 4L NC. Initial labs were notable for leukocytosis (15.1), elevated creatinine (1.94 - at baseline), mildly-elevated alk phos (130), and mildly-elevated hsTroponin (47.6); no anemia, platelets wnl, no electrolyte abnormalities, Tbili not elevated, covid PCR negative. In the ED, patient received ASA 324mg PO (x1) and nitroglycerin 0.4mg SL (x1). EKG: NSR, no overt ischemic change CXR: left blunting of the costophrenic angle may represent prominent epicardial fat as seen on prior CT; superimposed effusion cannot be entirely excluded; left retrocardiac opacity may represent atelectasis, pneumonia, and/or aspiration Surrogate decision-maker in case of an emergency: chiquita Stephenson (cell: [phone]) Principal Diagnosis bilateral lower leg cellulitis. Discharge Exam Constitutional: well-appearing, no acute distress HEENT: NCAT, no conjunctival injection CV: regular rhythm, no murmur appreciated, extremities well-perfused, no LE edema Resp: CTABL, no wheezes/rales/rhonchi appreciated, no increased work of breathing GI: soft, nondistended, nontender, BS normoactive MSK: no gross deformities appreciated, no chest wall tenderness to palpation Skin: warm, dry, no rash appreciated, cellutlits noted on lower legs with venous stasis changes, legs appear less erythematous. Neuro: alert, oriented, no focal neurologic deficit appreciated Discharge Data Allergies Allergy/AdvReac Type Severity Reaction Status Date / Time No Known Allergies Allergy Verified 07/20/22 08:43 Consultations 09/08/22 20:58 ED Decision to Admit Stat 09/09/22 07:00 Consult Cardiology Routine 09/11/22 16:17 Consult General Surgery Routine Ordered Studies 09/12/22 06:57 CT pelvis wo con Urgent Hospital Course (1) Bilateral lower leg cellulitis: Patient admitted for chest pain, which was ruled out by cardio as non cardiac. Patient though is having lower extremity pain. Also has elevated WBC, will place on antibiotics. will hold MRSA coverage unless clinical picture does not improve. On 09/11, legs appeared to be improving. will continue, will repeat diuretics on 09/12 Legs appear less erythematous. will closely monitor. 09/13 transitioned to augmentin. will monitor his legs. Patient does feel better. Patient to be discharged on 09/14 (2) Chest pain: 72yo male with a history of HTN, HLD, CAD (s/p stent placement 10+ years ago), T2DM, CKD4, COPD, OHS, SREEKANTH, diabetic gastroparesis, diabetic nephropathy, BPH with LUTS, GERD, and MDD presents with a few-hour history of chest pain. Chest pain possibly secondary to NSTEMI Patient presents with a few-hour history of CP Initial vitals notable only for elevated BP Initial labs notable for leukocytosis (15.1), elevated creatinine (1.94), elevated alkphos (130), and elevated hsTroponin (47.6) EKG: NSR, no overt ischemic change Two-hour repeat hsTroponin lower than prior (47.6 --> 45); no further repeat values indicated Cardiology consulted Echo ordered HbA1c and lipid profile ordered Nitro prn chest pain, zofran prn nausea No further work up DM2 HbA1c 9.6% (06/2022); repeat value ordered Patient's home regimen held on admission Continue BSG checks, sliding-scale insulin, hypoglycemic protocol CKD4 Creatinine on admission elevated to 1.94 (at baseline) Avoid nephrotoxins if able, encourage PO intake when no longer NPO, trend BMP HTN: home metoprolol HLD, CAD: home atorvastatin, ASA COPD: home inhaler regimen BPH with LUTS: home finasteride GERD: home protonix MDD: home bupropion SREEKANTH, OHS: patient refuses CPAP (3) Uncontrolled type 2 diabetes mellitus, with long-term current use of insulin: (4) Obstructive sleep apnea of adult: (5) Obesity hypoventilation syndrome: (6) Hypertension: (7) GERD (gastroesophageal reflux disease): (8) Enlarged prostate with lower urinary tract symptoms (LUTS): (9) Dyslipidemia: (10) COPD (chronic obstructive pulmonary disease): (11) CKD (chronic kidney disease) stage 4, GFR 15-29 ml/min: (12) Perineal abscess: LIkely perineal abscess, will monitor. on cefepime, likely will need anaerobic coverage. completed CT scan on 1/16 will transition to augmentin in AM. consult gen surgery. will followup as an outpatient. Total Time Total Time Spent Total Time Spent (In Minutes): 32 Discharge Plan Discharge Items Patient Disposition: Transfer Inpatient Rehab Fac Reason For Visit: CP Discharge Diagnosis: cellulitis/ fistula Activity: Resume your previous activity Non-emergency contact: Primary Care Provider Call non-emergency contact if: you have any medication questions Follow-up/Referrals: Zechariah Mayo MD, FACS [Physician] - (You may follow up in clinic within 2-3 weeks. Please call to schedule this appointment) Sp Vazquez Jr, MD, FAC [Physician] - 09/14/22 11:00 am Salas Valente, [Primary Care Provider] - Outside,Provider [Outside Practitioners] - (Lexiscan 09/13/22 Arrive: 7am Located at [facility] Instructions: 1) Do NOT take AGGRENOX 48hrs prior to procedure 2) Do NOT take PERSANTINE, TEGRETOL, TRENTAL, and/or PLETAL 24hrs prior to procedure 3) NO caffeinated or decaffeinted drinks/products 24hurs prior to procedure 4) Do NOT eat or drink anything 4hrs prior to procedure) Diet: Regular Addtl Attending Provider Instructions: Please follow-up in the office of Dr. Mayo in 2 to 3 weeks may require outpatient lexiscan. Followup with Dr. Vazquez. Symptoms were likely secondary to your infection, likely causing sepsis. Will recommend you continue on antibiotics for an additional 12 days Pending Studies at Discharge: No Stand-Alone Forms: [facility] Skilled Items Patient informed of condition?: Yes DNR: No Discharge Level of Care: Acute rehab Communicable Disease: Yes Discharge Prognosis: Stable Lines: None Urinary Catheter: No Medications and DC Order Prescriptions: New polyethylene glycol 3350 [Miralax] 17 gram Powder In Packet 17 g PO TID PRN (Reason: constipation) Qty: 30 0RF Rx Instructions: con nystatin [Nystop] 100,000 unit/gram Powder 1 applic EXT DAILY PRNQty: 0 0RF Lac-Hydrin Five 5 % Lotion 1 g EXT BID Qty: 5 0RF amoxicillin-pot clavulanate 875-125 mg tablet 1 tab PO BID Qty: 12 0RF Continued pantoprazole [Protonix] 40 mg tablet,delayed release (DR/EC) 40 mg PO DAILY PRN (Reason: GERD) Qty: 90 3RF Trulicity 1.5 mg/0.5 mL pen injector 1.5 mg subcut Q7D 90 Days Qty: 12 3RF Rx Instructions: takes on mon metoprolol tartrate [Lopressor] 100 mg tablet 100 mg PO BID Qty: 180 3RF bupropion HCl 150 mg tablet sustained-release 12 hr 150 mg PO BID 90 Days Qty: 180 3RF ipratropium-albuterol 0.5 mg-3 mg(2.5 mg base)/3 mL solution for nebulization 3 ml inhalation Q4 PRN (Reason: wheezing) Qty: 360 11RF Rx Instructions: DX: J44.9-COPD fluticasone furoate-vilanterol [Breo Ellipta] 100-25 mcg/dose blister with device 1 inh inhalation DAILY Qty: 60 2RF Rx Instructions: USUALLY JUST USES PRN finasteride [Proscar] 5 mg tablet 5 mg PO QAM Qty: 90 3RF clopidogrel 75 mg tablet 75 mg PO QAM Qty: 90 3RF furosemide 20 mg tablet 20 mg PO DAILY Qty: 90 3RF Novolin R Regular U-100 Insuln 100 unit/mL solution 35 unit subcut BID Rx Instructions: per atorvastatin [Lipitor] 40 mg tablet 40 mg PO HS Qty: 30 11RF cholecalciferol (vitamin D3) [Vitamin D3] 1,000 unit Tablet 1,000 unit PO BID acetaminophen 325 mg tablet 650 mg PO TID PRN (Reason: Pain) aspirin 81 mg Tablet,Delayed Release (Dr/Ec) 81 mg PO QPM albuterol sulfate 0.63 mg/3 mL solution for nebulization 0.63 mg continuous nebulization QID PRN (Reason: Shortness Of Breath Or Wheezing) No Action ondansetron 4 mg tablet,disintegrating 4 mg PO Q4H PRN docusate sodium 100 mg capsule 100 mg PO BID enoxaparin 40 mg/0.4 mL syringe 40 mg subcut DAILY gabapentin 400 mg capsule 400 mg PO TID Qty: 90 5RF Discharge Orders: Discharge Order (Routine); Ordered 09/14/22 Ordered By: Mauricio Dee/Other Patient Handouts: High Blood Sugar (Hyperglycemia), Hypoglycemia (Low Blood Sugar), Managing Type 2 Diabetes Admission Data Admit Date/Time: 09/09/22 12:55 Attending Provider: Mauricio Gonzalez Admit Provider: Alec Moncada Primary Care Provider: Salas Valente Other Providers: Brunilda King ; Marshal Spring ; Zechariah Mayo ; [facility] Other Interventions: Discharge Summary Assessment (RN) Last Done: 09/14/22 15:27 Coding Level of Care Code HOSP INP/OBS DISCH >30 MIN Diagnoses Bilateral lower leg cellulitis L03.116; L03.115 Chest pain R07.9 Uncontrolled type 2 diabetes mellitus, with long-term current use of insulin Obstructive sleep apnea of adult G47.33 Obesity hypoventilation syndrome E66.2 Hypertension I10 GERD (gastroesophageal reflux disease) K21.9 Esophagitis presence: without esophagitis Enlarged prostate with lower urinary tract symptoms (LUTS) N40.1; R39.12 Lower urinary tract symptom detail: weak urinary stream Dyslipidemia E78.5 COPD (chronic obstructive pulmonary disease) J44.9 COPD type: unspecified COPD CKD (chronic kidney disease) stage 4, GFR 15-29 ml/min N18.4 Perineal abscess L02.215
== END 2022-09-14 16:00 | DRG 682 ==
LOC: 2N 19:31 → ED 19:31 → SUATTDRO 21:40 → 2N 23:53
DX: I25.2 Old myocardial infarction; I25.10 Atherosclerotic heart disease of native coronary artery without angina pectoris; Z79.82 Long term (current) use of aspirin; E11.40 Type 2 diabetes mellitus with diabetic neuropathy, unspecified; Z95.5 Presence of coronary angioplasty implant and graft; K21.9 Gastro-esophageal reflux disease without esophagitis; Z79.4 Long term (current) use of insulin; E11.43 Type 2 diabetes mellitus with diabetic autonomic (poly)neuropathy; Z99.81 Dependence on supplemental oxygen; E11.22 Type 2 diabetes mellitus with diabetic chronic kidney disease; I12.9 Hypertensive chronic kidney disease with stage 1 through stage 4 chronic kidney disease, or unspecified chronic kidney disease; N40.1 Benign prostatic hyperplasia with lower urinary tract symptoms; Z86.16 Personal history of COVID-19; E66.2 Morbid (severe) obesity with alveolar hypoventilation; F32.9 Major depressive disorder, single episode, unspecified; I21.A1 Myocardial infarction type 2; L02.215 Cutaneous abscess of perineum; N18.4 Chronic kidney disease, stage 4 (severe); L03.115 Cellulitis of right lower limb; L03.116 Cellulitis of left lower limb; Z68.41 Body mass index [BMI] 40.0-44.9, adult

== ENCOUNTER 2022-10-21 14:09 | Inpatient (IN) ==
[2022-10-21] MEDS ORDERED: methylPREDNISolone 125 MG/2 ML VIAL IV STA (14:38)
[2022-10-21] MEDS ORDERED: ALBUT/IPRATROP 3MG/0.5MG NEB 3 ML VIAL NEB STA (14:38)
[2022-10-21] MEDS ORDERED: guaiFENesin 600 MG TABCR PO STA (14:38)
--- NOTE | 2022-10-21 15:17 | XRay Report ---
XR chest 1V portable CLINICAL HISTORY: Chest pain, nonspecific COMPARISON STUDY: Chest CT October 16, 2022. Chest radiograph September 09, 2022. FINDINGS: Patient is rotated. Left basilar bulla is again noted. Blunting of the left costophrenic an gle is chronic. Cardiomediastinal silhouette is stable. No evidence for pulmonary edema. Mild left ba silar opacity favors atelectasis. There has been no significant change in appearance of the chest. IMPRESSION: No acute cardiopulmonary findings. No significant change in appearance of the chest. ACT 112: Negative or not required by law. Electronically signed by: Mike De Dios M.D. 10/21/2022 3:16 PM
--- NOTE | 2022-10-21 15:43 | Emergency Department Note ---
Impression & Plan Acute on chronic respiratory failure with hypoxia and hypercapnia, Acute exacerbation of chronic obstructive pulmonary disease (COPD), CKD (chronic kidney disease) stage 4, GFR 15-29 ml/min ED Provider Note NAME: ANNA DELGADO AGE: 72 SEX: M ARRIVES VIA: Ambulance INFORMANT: Patient ED PROVIDER(S): Dax Townsend MD CHIEF COMPLAINT: SOB, Low oxygen with exertion. PLAN: Disposition: Admit MEDICAL DECISION MAKING: The patient is a 72-year-old gentleman with a past medical history of hypertension, hyperlipidemia, CAD, diabetes, stage IV CKD, COPD on 2 L home oxygen, SREEKANTH, O at bedtime, gastroparesis and neuropathy secondary to diabetes, BPH with LUTS, GERD, MDD who presents to the emergency department from home via EMS for shortness of breath with O2 saturation in the low to mid 80s on his 2 L home oxygen with minimal exertion which was discovered by his physical therapist today. He reports having increasing cough, congestion and shortness of breath since he was seen in the emergency department on 10/16 and diagnosed with pneumonia and started on Levaquin. He denies any fevers, nausea, vomiting or diarrhea. He reports his weight has been stable and feels his legs are starting to improve. On arrival the patient is fatigued appearing but no acute distress, afebrile stable vital signs. He was initially on 3 L at 98% and so was returned to his 2 L nasal cannula. He has scant wheezes of bilateral lung machado with rhonchi of the left mid to lower lung machado. 2+ BLE edema. EKG without overt acute ischemia. Left basilar opacity is noted on chest x-ray. WBC and platelets within normal notes. H/H similar to prior values. Chemistry with bicarbonate of 41 increased from prior and consistent with patient's COPD with hypercapnia with VBG demonstrating PCO2 of 86 with pH of 7.31. Creatinine 2, within prior values in setting of CKD. Electrolytes without significant abnormality. High-sensitivity troponin 30.3, nonspecific and in the setting of CKD. BNP is not elevated. Lipase within normal limits. Procalcitonin is not elevated. Covid-19 PCR negative. Influenza and RSV PCR negative. Patient was treated with Solu-Medrol, DuoNeb, guaifenesin for suspected primary component of COPD. Patient additionally appears hypervolemic with 2+ bilateral lower extremity pitting edema and so was given dose of IV Lasix. Given the liana ent's worsening respiratory status from baseline patient was referred for admission for further management. Case was d/w [facility] hospitalist who will evaluate the patient for admission. Triage Nursing notes reviewed and agree them. Prior/outside medical records reviewed Vital Signs: reviewed Differential diagnosis: Reactive airway disease, pneumonia, pneumothorax, COPD, CHF, infections, cardiac ischemia, pulmonary embolism, musculoskeletal, gastrointestinal, as well as other pathologies. ER treatment provided: See below. Diagnostics interpreted by me: ECG: Normal sinus rhythm, 71 bpm, no ectopy, no overt ST elevation or depressi on, QTc 439, QRS 86 Cardiac Monitoring: An order for continuous cardiac monitoring was placed and demonstrated Normal sinus rhythm, 71 bpm, no ectopy Laboratory studies: See below Imaging studies: See below Consultation(s): Case was d/w [facility] hospitalist who will evaluate the patient for admission. HPI: The patient is a 72-year-old gentleman with a past medical history of hypertension, hyperlipidemia, CAD, diabetes, stage IV CKD, COPD on 2 L home oxygen, SREEKANTH, O at bedtime, gastroparesis and neuropathy secondary to diabetes, BPH with LUTS, GERD, MDD who presents to the emergency department from home via EMS for shortness of breath with O2 saturation in the low to mid 80s on his 2 L home oxygen with minimal exertion which was discovered by his physical therapist today. He reports having increasing cough, congestion and shortness of breath since he was seen in the emergency department on 10/16 and diagnosed with pneumonia and started on Levaquin. He denies any fevers, nausea, vomiting or diarrhea. He reports his weight has been stable and feels his legs are starting to improve. ROS: See above HPI for pertinent positives & negatives. A total of 10 systems reviewed and were otherwise negative. VITALS:See Below PHYSICAL EXAMINATION: GENERAL: Awake, alert, chronically ill-appearing, in no distress HENT: Normocephalic, atraumatic. Oropharynx unremarkable. EYES: Normal conjunctiva. Sclera non-icteric. NECK: Supple. No nuchal rigidity. FROM. No JVD. RESPIRATORY: Scant wheezes of bilateral lung machado with rhonchi of the left mid to lower lung machado. Mildly dyspneic. CARDIAC: Regular rate, normal rhythm. Extremities warm and well perfused. Pulses equal. ABDOMEN: Soft, non-distended. No tenderness to palpation. No rebound or guarding. No masses. RECTAL: Deferred. MUSCULOSKELETAL: Chest examination reveals no tenderness. The back is symmetrical on inspection without obvious abnormality. There is no CVA tenderness to palpation. No joint edema. LOWER EXTREMITIES: Calves are equal size bilaterally and non-tender. 2+ BLE edema. No discoloration. NEURO: No focal sensory or motor deficits noted. SKIN: No rash or jaundice noted. 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, with long-term current use of insulin UTI (urinary tract infection) Surgical History History of bilateral cataract extraction History of cardiac cath 2010- stents x2 History of carpal tunnel release right History of colonoscopy Colonoscopy: 03/18/19: MAC sedation at [facility] [place] History of lithotripsy Left ESWL: 09/14/18: LMA#5 at [facility] [place] (weight at time: 135.1kg) History of lithotripsy Left ESWL 06/07/19 [facility] [place] History of tooth extraction Hx of transurethral resection of prostate S/P cystoscopy with ureteral stent placement mulitple---last 04/16/20, 03/05/2020 08/23/2018. MAC. No issues. Family History Mother Family history of diabetes mellitus Coronary heart disease VT Father Coronary heart disease [place] Myocardial infarction Other No family history of adverse response to anesthesia Denies family history of Ovarian cancer Prostate cancer Breast cancer Colorectal cancer Social History (Updated 10/21/22 @ 20:36 by Scooter Ramirez MD) Smoking Status: Former smoker Tobacco Type: Cigarettes Age Started Using Tobacco: 16; Age Quit Using Tobacco: 62; Cigarettes Per Day: 20-30 a day; Second Hand Exposure: No; Do You Dip or Chew Tobacco: No; Tobacco Cessation Education Requested by Patient: No Hx Alcohol Use: No Hx Substance Use: No Preferred Language: Arabic Communication Ability: Effective Visual Impairment: No Limitations Hearing Ability: Normal Wagon Driver Required: No Beliefs That Will Affect Care: None marital status: Current Living Situation: Spouse current occupational status: retired How many Children do You have: 3 Other Information That Helps Us Care for You: No Feels Safe at Home: Yes Safety Concerns: Feels Safe At This Time Childhood Exposure to Second-Hand Smoke: Yes caffeine: Yes (Tea and soda ) Dental Care, Regularly: Yes Physical Activity Frequency: Does not Exercise Seatbelt Use: sometimes Sunscreen Use: No Assistive Devices: Walker Allergies Allergies Allergy/AdvReac Type Severity Reaction Status Date / Time No Known Allergies Allergy Verified 10/21/22 16:06 Home Meds Home Medications Medication Instructions Recorded Confirmed cholecalciferol (vitamin D3) 25 1,000 unit PO BID 08/22/18 10/21/22 mcg (1,000 unit) tablet (Vitamin D3) acetaminophen 325 mg tablet 650 mg PO TID PRN Pain 04/27/20 10/21/22 aspirin 81 mg tablet,delayed 81 mg PO QPM 06/08/20 10/21/22 release albuterol sulfate 0.63 mg/3 mL 0.63 mg continuous nebulization 03/27/21 10/21/22 solution for nebulization QID PRN Shortness Of Breath Or Wheezing docusate sodium 100 mg capsule 100 mg PO BID 09/22/22 10/21/22 ondansetron 4 mg disintegrating 4 mg PO Q4H PRN Nausea 09/22/22 10/21/22 tablet nystatin 100,000 unit/gram topical 1 applic EXT DAILY PRN infection 10/16/22 10/21/22 powder (Nystop) insulin glargine U-300 conc 300 44 unit subcut HS 10/21/22 10/21/22 unit/mL (3 mL) subcutaneous pen levofloxacin 750 mg tablet 750 mg PO Q OTHER DAY 10/21/22 10/21/22 Previous Rx's Medication Instructions Recorded Trulicity 1.5 mg/0.5 mL 1.5 mg (0.5 mL) subcut Q7D 90 days 11/03/21 subcutaneous pen injector #12 SYRINGES (dulaglutide) metoprolol tartrate 100 mg tablet 100 mg PO BID #180 tabs 12/17/21 (Lopressor) bupropion HCl 150 mg tablet,12 hr 150 mg PO BID 90 days #180 ea 03/23/22 sustained-release clopidogrel 75 mg tablet 75 mg PO QAM #90 tabs 04/04/22 ipratropium 0.5 mg-albuterol 3 mg 3 ml inhalation Q4 PRN wheezing 06/07/22 (2.5 mg base)/3 mL nebulization #360 mL soln fluticasone furoate 100 1 inh inhalation DAILY #60 ea 06/27/22 mcg-vilanterol 25 mcg/dose inhalation powder (Breo Ellipta) furosemide 20 mg tablet 20 mg PO DAILY Edema #90 tabs 07/20/22 finasteride 5 mg tablet (Proscar) 5 mg PO QAM #90 tabs 08/15/22 ammonium lactate 5 % lotion 1 g EXT BID #5 grams 09/14/22 (Lac-Hydrin Five) polyethylene glycol 3350 17 gram 17 g PO TID PRN constipation #30 ea 09/14/22 oral powder packet (Miralax) gabapentin 400 mg capsule 400 mg PO TID #90 caps 09/22/22 insulin aspart U-100 100 unit/mL 16 unit (0.16 mL) subcut TID #10 mL 09/29/22 subcutaneous solution (Novolog U-100 Insulin aspart) Results & Data (ED) Vital Signs Vital Signs - 24 hr 10/21/22 14:11 10/21/22 14:19 10/21/22 14:21 Temperature 36.7 C Temperature Source Oral Pulse Rate 67 Pulse Rate [Apical] Pulse Rate from SpO2 Sensor Respiratory Rate 18 Respiratory Effort / Characteristics Non-Labored Spontaneous Respiratory Depth Normal Blood Pressure 143/87 H Blood Pressure [Left Arm] Blood Pressure Mean 105 Blood Pressure Mean [Left Arm] Pulse Oximetry 98 Oxygen Delivery Method Nasal Cannula Room Air Nasal Cannula Oxygen Flow Rate 3 3 3 Sepsis Recent Fever Within 48 Hours No Sepsis New/Unexplained Change in Mental Status No Sepsis Action Taken by Nursing No Action Required 10/21/22 14:35 10/21/22 16:00 10/21/22 18:00 Temperature Temperature Source Pulse Rate Pulse Rate [Apical] 64 71 Pulse Rate from SpO2 Sensor Respiratory Rate 17 15 Respiratory Effort / Characteristics Non-Labored Spontaneous Non-Labored Spontaneous Respiratory Depth Normal Normal Blood Pressure Blood Pressure [Left Arm] 146/99 H 179/117 H Blood Pressure Mean Blood Pressure Mean [Left Arm] 114 137 Pulse Oximetry 96 96 97 Oxygen Delivery Method Nasal Cannula Nasal Cannula Nasal Cannula Oxygen Flow Rate 3 3 3 Sepsis Recent Fever Within 48 Hours Sepsis New/Unexplained Change in Mental Status Sepsis Action Taken by Nursing 10/21/22 14:20 10/21/22 14:30 10/21/22 14:30 Temperature Temperature Source Pulse Rate 68 67 Pulse Rate [Apical] Pulse Rate from SpO2 Sensor 68 67 Respiratory Rate 19 18 Respiratory Effort / Characteristics Respiratory Depth Blood Pressure 160/95 H Blood Pressure [Left Arm] Blood Pressure Mean 116 Blood Pressure Mean [Left Arm] Pulse Oximetry 99 100 Oxygen Delivery Method Oxygen Flow Rate Sepsis Recent Fever Within 48 Hours Sepsis New/Unexplained Change in Mental Status Sepsis Action Taken by Nursing 10/21/22 14:40 10/21/22 14:50 10/21/22 15:00 Temperature Temperature Source Pulse Rate 69 72 Pulse Rate [Apical] Pulse Rate from SpO2 Sensor 69 Respiratory Rate 19 23 Respiratory Effort / Characteristics Respiratory Depth Blood Pressure 161/96 H Blood Pressure [Left Arm] Blood Pressure Mean 117 Blood Pressure Mean [Left Arm] Pulse Oximetry 98 Oxygen Delivery Method Oxygen Flow Rate Sepsis Recent Fever Within 48 Hours Sepsis New/Unexplained Change in Mental Status Sepsis Action Taken by Nursing 10/21/22 15:00 10/21/22 15:10 10/21/22 15:20 Temperature Temperature Source Pulse Rate 67 66 64 Pulse Rate [Apical] Pulse Rate from SpO2 Sensor Respiratory Rate 19 18 17 Respiratory Effort / Characteristics Respiratory Depth Blood Pressure Blood Pressure [Left Arm] Blood Pressure Mean Blood Pressure Mean [Left Arm] Pulse Oximetry Oxygen Delivery Method Oxygen Flow Rate Sepsis Recent Fever Within 48 Hours Sepsis New/Unexplained Change in Mental Status Sepsis Action Taken by Nursing 10/21/22 15:30 10/21/22 15:31 10/21/22 15:31 Temperature Temperature Source Pulse Rate 65 65 Pulse Rate [Apical] Pulse Rate from SpO2 Sensor Respiratory Rate 19 17 Respiratory Effort / Characteristics Respiratory Depth Blood Pressure 148/94 H Blood Pressure [Left Arm] Blood Pressure Mean 112 Blood Pressure Mean [Left Arm] Pulse Oximetry Oxygen Delivery Method Oxygen Flow Rate Sepsis Recent Fever Within 48 Hours Sepsis New/Unexplained Change in Mental Status Sepsis Action Taken by Nursing 10/21/22 15:40 10/21/22 15:50 10/21/22 16:00 Temperature Temperature Source Pulse Rate 69 70 Pulse Rate [Apical] Pulse Rate from SpO2 Sensor Respiratory Rate 21 19 Respiratory Effort / Characteristics Respiratory Depth Blood Pressure 146/99 H Blood Pressure [Left Arm] Blood Pressure Mean 114 Blood Pressure Mean [Left Arm] Pulse Oximetry Oxygen Delivery Method Oxygen Flow Rate Sepsis Recent Fever Within 48 Hours Sepsis New/Unexplained Change in Mental Status Sepsis Action Taken by Nursing 10/21/22 16:00 10/21/22 16:10 10/21/22 16:20 Temperature Temperature Source Pulse Rate 69 69 64 Pulse Rate [Apical] Pulse Rate from SpO2 Sensor Respiratory Rate 16 15 17 Respiratory Effort / Characteristics Respiratory Depth Blood Pressure Blood Pressure [Left Arm] Blood Pressure Mean Blood Pressure Mean [Left Arm] Pulse Oximetry Oxygen Delivery Method Oxygen Flow Rate Sepsis Recent Fever Within 48 Hours Sepsis New/Unexplained Change in Mental Status Sepsis Action Taken by Nursing 10/21/22 16:30 10/21/22 16:31 10/21/22 16:31 Temperature Temperature Source Pulse Rate 68 68 Pulse Rate [Apical] Pulse Rate from SpO2 Sensor Respiratory Rate 17 19 Respiratory Effort / Characteristics Respiratory Depth Blood Pressure 177/105 H Blood Pressure [Left Arm] Blood Pressure Mean 129 Blood Pressure Mean [Left Arm] Pulse Oximetry Oxygen Delivery Method Oxygen Flow Rate Sepsis Recent Fever Within 48 Hours Sepsis New/Unexplained Change in Mental Status Sepsis Action Taken by Nursing 10/21/22 16:40 10/21/22 16:50 10/21/22 17:00 Temperature Temperature Source Pulse Rate 68 66 Pulse Rate [Apical] Pulse Rate from SpO2 Sensor 68 66 Respiratory Rate 18 18 Respiratory Effort / Characteristics Respiratory Depth Blood Pressure 163/96 H Blood Pressure [Left Arm] Blood Pressure Mean 118 Blood Pressure Mean [Left Arm] Pulse Oximetry 100 98 Oxygen Delivery Method Oxygen Flow Rate Sepsis Recent Fever Within 48 Hours Sepsis New/Unexplained Change in Mental Status Sepsis Action Taken by Nursing 10/21/22 17:00 10/21/22 17:10 10/21/22 17:20 Temperature Temperature Source Pulse Rate 67 65 66 Pulse Rate [Apical] Pulse Rate from SpO2 Sensor 67 66 66 Respiratory Rate 18 15 20 Respiratory Effort / Characteristics Respiratory Depth Blood Pressure Blood Pressure [Left Arm] Blood Pressure Mean Blood Pressure Mean [Left Arm] Pulse Oximetry 98 99 100 Oxygen Delivery Method Oxygen Flow Rate Sepsis Recent Fever Within 48 Hours Sepsis New/Unexplained Change in Mental Status Sepsis Action Taken by Nursing 10/21/22 17:30 10/21/22 17:40 10/21/22 17:50 Temperature Temperature Source Pulse Rate 69 71 71 Pulse Rate [Apical] Pulse Rate from SpO2 Sensor 69 71 Respiratory Rate 20 20 20 Respiratory Effort / Characteristics Respiratory Depth Blood Pressure Blood Pressure [Left Arm] Blood Pressure Mean Blood Pressure Mean [Left Arm] Pulse Oximetry 97 98 Oxygen Delivery Method Oxygen Flow Rate Sepsis Recent Fever Within 48 Hours Sepsis New/Unexplained Change in Mental Status Sepsis Action Taken by Nursing 10/21/22 18:00 10/21/22 18:00 10/21/22 18:10 Temperature Temperature Source Pulse Rate 70 71 Pulse Rate [Apical] Pulse Rate from SpO2 Sensor 72 71 Respiratory Rate 18 22 Respiratory Effort / Characteristics Respiratory Depth Blood Pressure 179/117 H Blood Pressure [Left Arm] Blood Pressure Mean 137 Blood Pressure Mean [Left Arm] Pulse Oximetry 98 97 Oxygen Delivery Method Oxygen Flow Rate Sepsis Recent Fever Within 48 Hours Sepsis New/Unexplained Change in Mental Status Sepsis Action Taken by Nursing 10/21/22 18:24 10/21/22 18:30 10/21/22 18:30 Temperature Temperature Source Pulse Rate 73 72 Pulse Rate [Apical] Pulse Rate from SpO2 Sensor Respiratory Rate 22 17 Respiratory Effort / Characteristics Respiratory Depth Blood Pressure 160/92 H Blood Pressure [Left Arm] Blood Pressure Mean 114 Blood Pressure Mean [Left Arm] Pulse Oximetry Oxygen Delivery Method Oxygen Flow Rate Sepsis Recent Fever Within 48 Hours Sepsis New/Unexplained Change in Mental Status Sepsis Action Taken by Nursing 10/21/22 18:40 10/21/22 18:50 10/21/22 19:00 Temperature Temperature Source Pulse Rate 73 74 76 Pulse Rate [Apical] Pulse Rate from SpO2 Sensor Respiratory Rate 20 19 17 Respiratory Effort / Characteristics Respiratory Depth Blood Pressure Blood Pressure [Left Arm] Blood Pressure Mean Blood Pressure Mean [Left Arm] Pulse Oximetry Oxygen Delivery Method Oxygen Flow Rate Sepsis Recent Fever Within 48 Hours Sepsis New/Unexplained Change in Mental Status Sepsis Action Taken by Nursing 10/21/22 19:10 10/21/22 19:20 10/21/22 19:30 Temperature Temperature Source Pulse Rate 74 73 75 Pulse Rate [Apical] Pulse Rate from SpO2 Sensor Respiratory Rate 20 19 22 Respiratory Effort / Characteristics Respiratory Depth Blood Pressure Blood Pressure [Left Arm] Blood Pressure Mean Blood Pressure Mean [Left Arm] Pulse Oximetry Oxygen Delivery Method Oxygen Flow Rate Sepsis Recent Fever Within 48 Hours Sepsis New/Unexplained Change in Mental Status Sepsis Action Taken by Nursing 10/21/22 19:40 Temperature Temperature Source Pulse Rate 75 Pulse Rate [Apical] Pulse Rate from SpO2 Sensor Respiratory Rate 22 Respiratory Effort / Characteristics Respiratory Depth Blood Pressure Blood Pressure [Left Arm] Blood Pressure Mean Blood Pressure Mean [Left Arm] Pulse Oximetry Oxygen Delivery Method Oxygen Flow Rate Sepsis Recent Fever Within 48 Hours Sepsis New/Unexplained Change in Mental Status Sepsis Action Taken by Nursing Laboratory Data Attestation: I reviewed the patient's lab results. 10/21/22 16:00 10/21/22 16:00 Lab Results 10/21/22 10/21/22 10/21/22 Range/Units 15:01 16:00 16:00 WBC (4.8-10.8) K/ul RBC (4.70-6.10) M/uL Hgb (14.0-18.0) g/dl Hct (42.0-52.0) % MCV (80.0-100.0) fL MCH (25.0-34.0) pg MCHC (32.0-36.0) g/dL RDW Std Deviation (36.4-46.3) fL RDW Coeff of Cirilo (11.5-14.5) % Plt Count (130-400) K/uL MPV (9.4-12.4) fL Immature Gran % (Auto) % Neut % (Auto) % Lymph % (Auto) % [place] % (Auto) % Eos % (Auto) % Baso % (Auto) % Neut # (Auto) (1.40-6.50) K/uL Lymph # (Auto) (1.2-3.4) K/uL [place] # (Auto) (0.11-0.59) K/uL Eos # (Auto) (0-0.50) K/uL Baso # (Auto) (0-0.2) K/uL Immature Gran # (Auto) (0.01-0.20) K/uL PT (9.0-12.0) Seconds INR (0.9-1.1) VBG pH (7.36-7.41) VBG pCO2 (38-50) mmHg VBG pO2 mmHg VBG HCO3 mmol/L VBG O2 Saturation % VBG Base Excess mEq/L Sodium 144 (136-145) mmol/L Potassium 4.1 (3.5-5.1) mmol/L Chloride 101 (98-107) mmol/L Carbon Dioxide 41 H* (21-32) mmol/L Anion Gap 2 L (3-11) BUN 23 (6-23) mg/dl Creatinine 2.13 H (0.6-1.4) mg/dl Est Cr Clr Drug Dosing 45.9 ml/min Est GFR ( Amer) 35.3 ml/min Est GFR (Non-Af Amer) 30.4 ml/min BUN/Creatinine Ratio 10.8 (10-20) Glucose 121 H (70-99(Fasting)) mg/dl Lactate (0.4-2.0) mmol/L Calcium 9.7 (8.5-10.1) mg/dl Phosphorus 2.6 (2.5-4.9) mg/dl Magnesium 2.1 (1.7-2.4) mg/dl Total Bilirubin 0.5 (0.2-1.0) mg/dl AST 8 L (13-39) U/L ALT 8 (7-52) U/L Alkaline Phosphatase 105 H (34-104) U/L Troponin I High Sens 30.3 H (0-20) pg/ml B-Natriuretic Peptide 43 (0-100) pg/ml Total Protein 7.2 (6.0-8.3) gm/dl Albumin 3.4 (3.4-5.0) gm/dl Globulin 3.8 (2.5-4.0) gm/dl Albumin/Globulin Ratio 0.9 (0.9-2) Lipase 36 (11-82) U/L Procalcitonin (0-0.5) ng/ml SARS-CoV-2 (PCR) NEGATIVE (Negative) Influenza Type A (PCR) Negative (Neg) Influenza Type B (PCR) Negative (Neg) RSV (RT-PCR) Negative (Neg) 10/21/22 10/21/22 10/21/22 Range/Units 16:00 16:00 16:00 WBC 9.39 (4.8-10.8) K/ul RBC 4.53 L (4.70-6.10) M/uL Hgb 13.7 L (14.0-18.0) g/dl Hct 44.1 (42.0-52.0) % MCV 97.4 (80.0-100.0) fL MCH 30.2 (25.0-34.0) pg MCHC 31.1 L (32.0-36.0) g/dL RDW Std Deviation 51.7 H (36.4-46.3) fL RDW Coeff of Cirilo 14.6 H (11.5-14.5) % Plt Count 179 (130-400) K/uL MPV 9.1 L (9.4-12.4) fL Immature Gran % (Auto) 1.5 % Neut % (Auto) 77.6 % Lymph % (Auto) 7.7 % [place] % (Auto) 9.7 % Eos % (Auto) 2.6 % Baso % (Auto) 0.9 % Neut # (Auto) 7.30 H (1.40-6.50) K/uL Lymph # (Auto) 0.72 L (1.2-3.4) K/uL [place] # (Auto) 0.91 H (0.11-0.59) K/uL Eos # (Auto) 0.24 (0-0.50) K/uL Baso # (Auto) 0.08 (0-0.2) K/uL Immature Gran # (Auto) 0.14 (0.01-0.20) K/uL PT 10.5 (9.0-12.0) Seconds INR 1.0 (0.9-1.1) VBG pH (7.36-7.41) VBG pCO2 (38-50) mmHg VBG pO2 mmHg VBG HCO3 mmol/L VBG O2 Saturation % VBG Base Excess mEq/L Sodium (136-145) mmol/L Potassium (3.5-5.1) mmol/L Chloride (98-107) mmol/L Carbon Dioxide (21-32) mmol/L Anion Gap (3-11) BUN (6-23) mg/dl Creatinine (0.6-1.4) mg/dl Est Cr Clr Drug Dosing ml/min Est GFR ( Amer) ml/min Est GFR (Non-Af Amer) ml/min BUN/Creatinine Ratio (10-20) Glucose (70-99(Fasting)) mg/dl Lactate (0.4-2.0) mmol/L Calcium (8.5-10.1) mg/dl Phosphorus (2.5-4.9) mg/dl Magnesium (1.7-2.4) mg/dl Total Bilirubin (0.2-1.0) mg/dl AST (13-39) U/L ALT (7-52) U/L Alkaline Phosphatase (34-104) U/L Troponin I High Sens (0-20) pg/ml B-Natriuretic Peptide (0-100) pg/ml Total Protein (6.0-8.3) gm/dl Albumin (3.4-5.0) gm/dl Globulin (2.5-4.0) gm/dl Albumin/Globulin Ratio (0.9-2) Lipase (11-82) U/L Procalcitonin 0.11 (0-0.5) ng/ml SARS-CoV-2 (PCR) (Negative) Influenza Type A (PCR) (Neg) Influenza Type B (PCR) (Neg) RSV (RT-PCR) (Neg) 10/21/22 10/21/22 Range/Units 17:41 17:48 WBC (4.8-10.8) K/ul RBC (4.70-6.10) M/uL Hgb (14.0-18.0) g/dl Hct (42.0-52.0) % MCV (80.0-100.0) fL MCH (25.0-34.0) pg MCHC (32.0-36.0) g/dL RDW Std Deviation (36.4-46.3) fL RDW Coeff of Cirilo (11.5-14.5) % Plt Count (130-400) K/uL MPV (9.4-12.4) fL Immature Gran % (Auto) % Neut % (Auto) % Lymph % (Auto) % [place] % (Auto) % Eos % (Auto) % Baso % (Auto) % Neut # (Auto) (1.40-6.50) K/uL Lymph # (Auto) (1.2-3.4) K/uL [place] # (Auto) (0.11-0.59) K/uL Eos # (Auto) (0-0.50) K/uL Baso # (Auto) (0-0.2) K/uL Immature Gran # (Auto) (0.01-0.20) K/uL PT (9.0-12.0) Seconds INR (0.9-1.1) VBG pH 7.31 L (7.36-7.41) VBG pCO2 86 H (38-50) mmHg VBG pO2 27 mmHg VBG HCO3 43 mmol/L VBG O2 Saturation < 60.0 % VBG Base Excess 13.0 mEq/L Sodium (136-145) mmol/L Potassium (3.5-5.1) mmol/L Chloride (98-107) mmol/L Carbon Dioxide (21-32) mmol/L Anion Gap (3-11) BUN (6-23) mg/dl Creatinine (0.6-1.4) mg/dl Est Cr Clr Drug Dosing ml/min Est GFR ( Amer) ml/min Est GFR (Non-Af Amer) ml/min BUN/Creatinine Ratio (10-20) Glucose (70-99(Fasting)) mg/dl Lactate 1.4 (0.4-2.0) mmol/L Calcium (8.5-10.1) mg/dl Phosphorus (2.5-4.9) mg/dl Magnesium (1.7-2.4) mg/dl Total Bilirubin (0.2-1.0) mg/dl AST (13-39) U/L ALT (7-52) U/L Alkaline Phosphatase (34-104) U/L Troponin I High Sens (0-20) pg/ml B-Natriuretic Peptide (0-100) pg/ml Total Protein (6.0-8.3) gm/dl Albumin (3.4-5.0) gm/dl Globulin (2.5-4.0) gm/dl Albumin/Globulin Ratio (0.9-2) Lipase (11-82) U/L Procalcitonin (0-0.5) ng/ml SARS-CoV-2 (PCR) (Negative) Influenza Type A (PCR) (Neg) Influenza Type B (PCR) (Neg) RSV (RT-PCR) (Neg) Administered Medications Insulin Aspart (Insulin Aspart Per Unit) 0 units SC ACHS KAYLEEN Stop: 11/20/22 20:59 Last Admin: 10/21/22 22:43 Dose: 10 units Documented By: EUGENIA Co-signed By: EGS Discontinued Medications Albuterol (Albut/Ipratrop 3mg/0.5mg Neb 3 Ml Vial) 3 ml NEB NOW STA; Protocol Stop: 10/21/22 14:39 Last Admin: 10/21/22 16:11 Dose: 3 ml Documented By: Aspirin (Aspirin 81 Mg Ectab) 81 mg PO NOW STA Stop: 10/21/22 21:02 Last Admin: 10/21/22 22:31 Dose: 81 mg Documented By: MAGALY Bupropion HCl (Bupropion Sr 100 Mg Tabcr) 100 mg PO ONE STA Stop: 10/21/22 20:56 Last Admin: 10/21/22 22:21 Dose: Not Given Documented By: MAGALY Bupropion HCl (Bupropion Sr 150 Mg Tabcr) 150 mg PO ONE STA Stop: 10/21/22 21:18 Last Admin: 10/21/22 22:31 Dose: 150 mg Documented By: MAGALY Furosemide (Furosemide Inj 20 Mg/2 Ml Vial) 20 mg IV ONE ONE Stop: 10/21/22 17:09 Last Admin: 10/21/22 18:02 Dose: 20 mg Documented By: Gabapentin (Gabapentin 400 Mg Cap) 400 mg PO ONE STA Stop: 10/21/22 21:17 Last Admin: 10/21/22 22:31 Dose: 400 mg Documented By: EUGENIA Guaifenesin (Guaifenesin 600 Mg Tabcr) 1,200 mg PO NOW STA Stop: 10/21/22 14:39 Last Admin: 10/21/22 16:08 Dose: 1,200 mg Documented By: Heparin Sodium (Porcine) (Heparin Sod 5,000 Unit/0.5 Ml Vial) 5,000 units SQ NOW STA Stop: 10/21/22 21:17 Last Admin: 10/21/22 22:31 Dose: 5,000 units Documented By: MAGALY Azithromycin 500 mg/ Dextrose 255 mls @ 127.5 mls/hr IV NOW STA Stop: 10/21/22 23:15 Last Infusion: 10/22/22 00:37 Dose: 0 mls/hr Documented By: [facility] Admin: 10/21/22 22:31 Dose: 127.5 mls/hr Documented By: MAGALY Insulin Glargine (Lantus Per Unit Charge) 30 units SQ HS KAYLEEN Stop: 11/20/22 23:19 Last Admin: 10/21/22 23:33 Dose: 30 units Documented By: KSLoni Co-signed By: EGTeresa Insulin Glargine (Lantus Per Unit Charge) 10 units SQ NOW STA Stop: 10/22/22 01:57 Last Admin: 10/22/22 02:03 Dose: 10 units Documented By: MAGALY Co-signed By: ZAHIRA Methylprednisolone (Methylprednisolone 125 Mg/2 Ml Vial) 125 mg IV NOW STA Stop: 10/21/22 14:39 Last Admin: 10/21/22 16:09 Dose: 125 mg Documented By: TOMI Metoprolol Tartrate (Metoprolol Tartrate 100 Mg Tab) 100 mg PO ONE STA Stop: 10/21/22 21:17 Last Admin: 10/21/22 22:31 Dose: 100 mg Documented By: MAGALY Imaging Data Radiologist's Impression: Chest X-Ray 10/21/22 14:35 XR chest 1V portable CLINICAL HISTORY: Chest pain, nonspecific COMPARISON STUDY: Chest CT October 16, 2022. Chest radiograph September 09, 2022. FINDINGS: Patient is rotated. Left basilar bulla is again noted. Blunting of the left costophrenic angle is chronic. Cardiomediastinal silhouette is stable. No evidence for pulmonary edema. Mild left basilar opacity favors atelectasis. There has been no significant change in appearance of the chest. IMPRESSION: No acute cardiopulmonary findings. No significant change in appearance of the chest. ACT 112: Negative or not required by law. Electronically signed by: Mike De Dios M.D. 10/21/2022 3:16 PM Discharge Plan Visit Data Chief Complaint: Shortness of Breath/Dyspnea Stated Complaint: shortness of breath ED Provider: Dax Townsend Discharge Problem: Acute on chronic respiratory failure with hypoxia and hypercapnia, Acute exacerbation of chronic obstructive pulmonary disease (COPD), CKD (chronic kidney disease) stage 4, GFR 15-29 ml/min Patient Disposition: Admitted As Inpatient Discharge Instructions Interventions: ED Discharge Assessment Last Done: 10/21/22 21:20
[2022-10-21 16:05] LABS: Influenza A virus by PCR Negative (Neg); Influenza B virus by PCR Negative (Neg); RSV by PCR Negative (Neg); SARS CoV2 RNA(COVID-19) Ceph NEGATIVE (Negative)
--- NOTE | 2022-10-21 16:27 | Electrocardiogram Report ---
Test Reason : Blood Pressure : / mmHG Vent. Rate : 071 BPM Atrial Rate : 071 BPM P-R Int : 148 ms QRS Dur : 086 ms QT Int : 404 ms P-R-T Axes : 091 000 026 degrees QTc Int : 439 ms Normal sinus rhythm Normal ECG When compared with ECG of 16-OCT-2022 11:54, Premature ventricular complexes are no longer Present Confirmed by Frederic Le ([id number]) on 10/21/2022 4:26:52 PM Referred By: REFERRED SELF Confirmed By:Fabio Le
[2022-10-21 16:44] LABS: Basophils # (auto) 0.08 K/uL (0-0.2); Basophils % (auto) 0.9 %; Eosinophils # (auto) 0.24 K/uL (0-0.50); Eosinophils % (auto) 2.6 %; Hematocrit (blood only) 44.1 % (42.0-52.0); Hemoglobin 13.7 g/dl (14.0-18.0); Immature Granulocytes # (auto) 0.14 K/uL (0.01-0.20); Immature Granulocytes % (auto) 1.5 %; Lymphocytes # (auto) 0.72 K/uL (1.2-3.4); Lymphocytes % (auto) 7.7 %; Mean Corpuscular Hemoglobin 30.2 pg (25.0-34.0); Mean Corpuscular Hgb Conc 31.1 g/dL (32.0-36.0); Mean Corpuscular Volume 97.4 fL (80.0-100.0); Mean Platelet Volume 9.1 fL (9.4-12.4); Monocytes # (auto) 0.91 K/uL (0.11-0.59); Monocytes % (auto) 9.7 %; Neutrophils % (auto) 77.6 %; Platelet Count 179 K/uL (130-400); RDW Coefficient of Variation 14.6 % (11.5-14.5); RDW Standard Deviation 51.7 fL (36.4-46.3); Red Blood Count 4.53 M/uL (4.70-6.10); White Blood Count 9.39 K/ul (4.8-10.8)
[2022-10-21 17:01] LABS: Prothrombin Time 10.5 Seconds (9.0-12.0)
[2022-10-21 17:02] LABS: Albumin Globulin Ratio 0.9 (0.9-2); Albumin Level 3.4 gm/dl (3.4-5.0); BUN Creatinine Ratio 10.8 (10-20); Bilirubin,Total 0.5 mg/dl (0.2-1.0); Calcium 9.7 mg/dl (8.5-10.1); Creatinine Clr Calc Pharmacy 45.9 ml/min; Est GFR (African American) 35.3 ml/min; Est GFR (Non-African American) 30.4 ml/min; Globulin 3.8 gm/dl (2.5-4.0); Magnesium 2.1 mg/dl (1.7-2.4); Phosphorus 2.6 mg/dl (2.5-4.9); Potassium 4.1 mmol/L (3.5-5.1); Total Protein 7.2 gm/dl (6.0-8.3); Troponin I High Sensitivity 30.3 pg/ml (0-20)
[2022-10-21] MEDS ORDERED: FUROSEMIDE INJ 20 MG/2 ML VIAL IV ONE (17:08)
[2022-10-21 18:00] LABS: HCO3 VBG 43 mmol/L; Oxygen Saturation VBG < 60.0 %; PCO2 VBG 86 mmHg (38-50); PO2 VBG 27 mmHg; pH VBG 7.31 (7.36-7.41)
--- NOTE | 2022-10-21 18:10 | History & Physical Report ---
Date of Service October 21, 2022 Assessment & Plan (1) Acute on chronic respiratory failure with hypoxia: Plan: 72-year-old male w/ PMHx of COPD on 2L O2, DM2 w/ neuropathy, HTN, HLD, CAD s/p stent, CKD4, BPH, RSEEKANTH, OHS, morbid obesity, and left nephrolithiasis who presents via EMS for dyspnea. - COPD exacerbation is highest on differential - also considered element of chronic retention secondary to SREEKANTH, OHS - Bilateral basilar insp crackles, but otherwise not convincing for hypervolemic state. Cxr w/o pulm vasc congestion. BNP wnl. Continue home PO Lasix 20mg daily, but will not provide increased diuretics. - 09/09/22 echo EF 60-65%. grade 1 diastolic dysfunction. - Per 06/2022 nephrology note, on home Lasix because had hypervolemia state in past and concern for R heart dysfunction - Reviewed prior imaging. Not convincing for pneumonia. LLL w/ large bulla. Dc outpatient course of Levaquin. (2) COPD (chronic obstructive pulmonary disease): Plan: - vbg (pH 7.31. CO2 86) CO2 retention noted. Exam mild/reassuring; w/o crackles/wheezes - checked ABG after ED treatments: reassuring/improved. ab.41/58/90/37. bipap not indicated. - recheck VBG AM of 10/23 - 06/2022 hosp admission for copd exac that required intubation. - s/p IV methylpred 125mg IV. Subsequent doses will be 20mg q12h - azithro - hold home inhalers - Duoneb treatments. continue home Breo Ellipta (3) Uncontrolled type 2 diabetes mellitus, with long-term current use of insulin: Plan: - a1c 8.4 09/09/22 - basal+SSI - home regimen consists of glargine + Novolog + Trulicity - discrepancy in patient reported insulin regimen (35u Novolog breakfast and lunch. 45u HS glargine) vs chart records (15u Novolog TID. 44u HS glargine) - PCP to follow. patient has endocrine appointment in 11/2022 (4) Maddie rash of groin: Plan: - will treat with topical clotrimazole BID (5) Venous stasis dermatitis of both lower extremities: Plan: - patient with bilateral venous stasis; stable, at baseline - not consistent w/ cellulitis (6) Chronic kidney disease: Plan: - at baseline Cr. Stage 3b vs 4. Renally dose. Avoid nephrotoxic agents. (7) Obstructive sleep apnea of adult: Plan: - not tolerant of cpap therapy as outpatient (8) Depression: Plan: - continue home bupropion. PCP to consider dose adjustment given CrCl of 45.9. (9) Hypertension: Plan: - continue home metoprolol (10) CAD (coronary artery disease): Plan: - continue home Plavix (11) Perineal abscess: Plan: - reassuring exam. follow clinically (12) Diabetic nephropathy: Plan: - continue home gabapentin Plan FEN/GI: HH, DM2, low Na diet. No IV fluids ppx: sq heparin code: full dispo: med surg PT/OT ordered History of Present Illness Chief Complaint: dyspnea Primary Care Provider: Salas Valente DO 72-year-old male w/ PMHx of COPD on 2L O2, DM2 w/ neuropathy, HTN, HLD, CAD s/p stent, CKD4, BPH, SREEKANTH, OHS, morbid obesity, and left nephrolithiasis who presents via EMS for dyspnea. He had increased O2 req to 3L today as he had desaturation to low 80s while working w/ physical therapy. Physical therapy recommended ED eval. Patient felt slightly lightheaded and appeared pale at the time. He denies illness symptoms such as f/c, cp, sob, mcwilliams, n/v, diarrhea. He has not had cough or increased sputum production. Postnasal drip is white in color. He was seen in the ED on 10/16 for left flank pleuritic pain and was diagnosed with possible pneumonia for possible mild left basilar opacity on CTA; 10 day course of Levaquin was prescribed. Patient was admitted from 09/08-09/14 for bilateral leg cellulitis. Patient was then at [facility] rehab until 09/28. ED course: IV Lasix 20mg. IV methylpred 125mg. Duoneb. Allergies Allergy/AdvReac Type Severity Reaction Status Date / Time No Known Allergies Allergy Verified 10/21/22 16:06 Home Medications Medication Instructions Recorded Confirmed Type cholecalciferol (vitamin D3) 25 1,000 unit PO BID 08/22/18 10/21/22 History mcg (1,000 unit) tablet (Vitamin D3) acetaminophen 325 mg tablet 650 mg PO TID PRN Pain 04/27/20 10/21/22 History aspirin 81 mg tablet,delayed 81 mg PO QPM 06/08/20 10/21/22 History release albuterol sulfate 0.63 mg/3 mL 0.63 mg continuous nebulization 03/27/21 10/21/22 History solution for nebulization QID PRN Shortness Of Breath Or Wheezing Trulicity 1.5 mg/0.5 mL 1.5 mg (0.5 mL) subcut Q7D 90 days 11/03/21 10/21/22 Rx subcutaneous pen injector #12 SYRINGES (dulaglutide) metoprolol tartrate 100 mg tablet 100 mg PO BID #180 tabs 12/17/21 10/21/22 Rx (Lopressor) bupropion HCl 150 mg tablet,12 hr 150 mg PO BID 90 days #180 ea 03/23/22 10/21/22 Rx sustained-release clopidogrel 75 mg tablet 75 mg PO QAM #90 tabs 04/04/22 10/21/22 Rx ipratropium 0.5 mg-albuterol 3 mg 3 ml inhalation Q4 PRN wheezing 06/07/22 10/21/22 Rx (2.5 mg base)/3 mL nebulization #360 mL soln fluticasone furoate 100 1 inh inhalation DAILY #60 ea 06/27/22 10/21/22 Rx mcg-vilanterol 25 mcg/dose inhalation powder (Breo Ellipta) furosemide 20 mg tablet 20 mg PO DAILY Edema #90 tabs 07/20/22 10/21/22 Rx finasteride 5 mg tablet (Proscar) 5 mg PO QAM #90 tabs 08/15/22 10/21/22 Rx ammonium lactate 5 % lotion 1 g EXT BID #5 grams 09/14/22 10/21/22 Rx (Lac-Hydrin Five) polyethylene glycol 3350 17 gram 17 g PO TID PRN constipation #30 ea 09/14/22 10/21/22 Rx oral powder packet (Miralax) docusate sodium 100 mg capsule 100 mg PO BID 09/22/22 10/21/22 History gabapentin 400 mg capsule 400 mg PO TID #90 caps 09/22/22 10/21/22 Rx ondansetron 4 mg disintegrating 4 mg PO Q4H PRN Nausea 09/22/22 10/21/22 History tablet insulin aspart U-100 100 unit/mL 16 unit (0.16 mL) subcut TID #10 mL 09/29/22 10/21/22 Rx subcutaneous solution (Novolog U-100 Insulin aspart) nystatin 100,000 unit/gram topical 1 applic EXT DAILY PRN infection 10/16/22 10/21/22 History powder (Nystop) insulin glargine U-300 conc 300 44 unit subcut HS 10/21/22 10/21/22 History unit/mL (3 mL) subcutaneous pen levofloxacin 750 mg tablet 750 mg PO Q OTHER DAY 10/21/22 10/21/22 History Past Med/Surg History Medical History Acute kidney injury Acute kidney injury superimposed on CKD COVID-19 History of NM (myocardial infarction) Acute NM 03/2011, complicated by 3 episodes of v fib requiring electrical shock- ZITA x2 Hyperkalemia Hypophosphatemia Morbid obesity with BMI of 40.0-44.9, adult Nephrolithiasis Admitted to [facility] for 7 mm L ureteral stone causing hydronephrosis/EDILMA On anticoagulant therapy plavix daily On home oxygen therapy 2L N/C prn SBO (small bowel obstruction) current diagnosis--reason for scheduled colonoscopy Uncontrolled type 2 diabetes mellitus with diabetic neuropathy, with long-term current use of insulin UTI (urinary tract infection) Surgical History History of bilateral cataract extraction History of cardiac cath 2010- stents x2 History of carpal tunnel release right History of colonoscopy Colonoscopy: 03/18/19: MAC sedation at [facility] History of lithotripsy Left ESWL: 09/14/18: LMA#5 at [facility] (weight at time: 135.1kg) History of lithotripsy Left ESWL 06/07/19 [facility] History of tooth extraction Hx of transurethral resection of prostate S/P cystoscopy with ureteral stent placement mulitple---last 04/16/20, 03/05/2020 08/23/2018. MAC. No issues. Family History Mother Family history of diabetes mellitus Coronary heart disease NM Father Coronary heart disease NM Myocardial infarction Other No family history of adverse response to anesthesia Denies family history of Ovarian cancer Prostate cancer Breast cancer Colorectal cancer Social History (Updated 10/21/22 @ 20:36 by Scooter Ramirez MD) Smoking Status: Former smoker Tobacco Type: Cigarettes Age Started Using Tobacco: 16; Age Quit Using Tobacco: 62; Cigarettes Per Day: 20-30 a day; Second Hand Exposure: No; Hx Alcohol Use: No Hx Substance Use: No Preferred Language: Swiss Communication Ability: Effective Visual Impairment: No Limitations Hearing Ability: Normal Sole Molder Required: No Beliefs That Will Affect Care: None marital status: Current Living Situation: Spouse current occupational status: retired How many Children do You have: 3 Feels Safe at Home: Yes Childhood Exposure to Second-Hand Smoke: Yes caffeine: Yes (Tea and soda ) Dental Care, Regularly: Yes Physical Activity Frequency: Does not Exercise Seatbelt Use: sometimes Sunscreen Use: No Assistive Devices: Cane, CPAP, Glasses, Oxygen - Continuous and Walker Review of Systems Review of Systems: All systems reviewed & are unremarkable except as noted in HPI & below + Left lower leg burning/pins/needles pain during ambulation. Denies trauma. Physical Exam Physical Exam: General: Grossly A&O. NAD. Cooperative. HEENT: Atraumatic, normocephalic. EOMI Pulm: Severely diminished diffusely at upper and middle lung machado. Faint inspiratory crackles at bilateral bases. -wheezes. No accessory muscle use. Cardiac: RRR, -mrg. Abdominal: Nontender, nondistended, soft. Msk: lymphedematous appearing bilat lower extremities Integ: Bilat lower extremities with venous stasis dermatitis changes. + erythematous/pink color at background, no streaking and not bright red. L inguinal area w/ bright red rash L perirectal sore, mild ~1cm diameter. 2 separate spots. No surrounding erythema. Results & Data Results & Data ([facility]) Vital Signs (Past 12 Hours) Vital Signs Temp Pulse Pulse Resp BP BP Pulse Ox 10/21/22 16:00 64 17 146/99 H 96 10/21/22 14:35 96 10/21/22 14:21 10/21/22 14:19 10/21/22 14:11 36.7 C 67 18 143/87 H 98 O2 Del Method O2 Flow Rate 10/21/22 16:00 Nasal Cannula 3 10/21/22 14:35 Nasal Cannula 3 10/21/22 14:21 Nasal Cannula 3 10/21/22 14:19 Room Air 3 10/21/22 14:11 Nasal Cannula 3 Laboratory Results cbc stable. coags normal.vbg pH 7.31. pco2 86. BMP reviewed. Cr 2.13, stable. lactate 1.4. hstrop 30.3. procal 0.11. covid/flu/rsv neg. BC pending. Cardiac Enzymes 10/21/22 10/21/22 Range/Units 16:00 16:00 AST 8 L (13-39) U/L Troponin I High Sens 30.3 H (0-20) pg/ml B-Natriuretic Peptide 43 (0-100) pg/ml Coagulation 10/21/22 10/21/22 Range/Units 16:00 16:00 PT 10.5 (9.0-12.0) Seconds B-Natriuretic Peptide 43 (0-100) pg/ml CBC 10/21/22 Range/Units 16:00 WBC 9.39 (4.8-10.8) K/ul RBC 4.53 L (4.70-6.10) M/uL Hgb 13.7 L (14.0-18.0) g/dl Hct 44.1 (42.0-52.0) % Plt Count 179 (130-400) K/uL Neut # (Auto) 7.30 H (1.40-6.50) K/uL Lymph # (Auto) 0.72 L (1.2-3.4) K/uL [place] # (Auto) 0.91 H (0.11-0.59) K/uL Eos # (Auto) 0.24 (0-0.50) K/uL Baso # (Auto) 0.08 (0-0.2) K/uL Comprehensive Metabolic Panel 10/21/22 Range/Units 16:00 Sodium 144 (136-145) mmol/L Potassium 4.1 (3.5-5.1) mmol/L Chloride 101 (98-107) mmol/L Carbon Dioxide 41 H* (21-32) mmol/L BUN 23 (6-23) mg/dl Creatinine 2.13 H (0.6-1.4) mg/dl Glucose 121 H (70-99(Fasting)) mg/dl Calcium 9.7 (8.5-10.1) mg/dl AST 8 L (13-39) U/L ALT 8 (7-52) U/L Alkaline Phosphatase 105 H (34-104) U/L Total Protein 7.2 (6.0-8.3) gm/dl Albumin 3.4 (3.4-5.0) gm/dl Intake and Output 10/21/22 10/21/22 10/21/22 06:59 14:59 22:59 Other: Weight 138.2 kg Weight Measurement Method Built in Bedscale Patient Weight 10/22/22 06:59 Weight 138.2 kg Diagnostic Findings Chest X-Ray 10/21/22 14:35 XR chest 1V portable CLINICAL HISTORY: Chest pain, nonspecific COMPARISON STUDY: Chest CT October 16, 2022. Chest radiograph September 09, 2022. FINDINGS: Patient is rotated. Left basilar bulla is again noted. Blunting of the left costophrenic angle is chronic. Cardiomediastinal silhouette is stable. No evidence for pulmonary edema. Mild left basilar opacity favors atelectasis. Th ere has been no significant change in appearance of the chest. IMPRESSION: No acute cardiopulmonary findings. No significant change in appearance of the chest. ACT 112: Negative or not required by law. Electronically signed by: Mike De Dios M.D. 10/21/2022 3:16 PM ECG Additional Comments: Vent. Rate : 071 BPM Atrial Rate : 071 BPM P-R Int : 148 ms QRS Dur : 086 ms QT Int : 404 ms P-R-T Axes : 091 000 026 degrees QTc Int : 439 ms Normal sinus rhythm Normal ECG When compared with ECG of 16-OCT-2022 11:54, Premature ventricular complexes are no longer Present Confirmed by Frederic Le ([id number]) on 10/21/2022 4:26:52 PM Code Status & VTE Plan Code Status full VTE Prophylaxis Plan VTE Prophylaxis will be ordered: Yes Resident Activity Tracking Resident Involvement: Resident Care Provided Care Provided: Adult Hospital Medicine (2) COPD (chronic obstructive pulmonary disease) COPD type: unspecified COPD Qualified Code(s): J44.9 - Chronic obstructive pulmonary disease, unspecified (6) Chronic kidney disease Chronic kidney disease stage: unspecified stage Qualified Code(s): N18.9 - Chronic kidney disease, unspecified (8) Depression Depression Type: unspecified Qualified Code(s): F32.9 - Major depressive disorder, single episode, unspecified (10) CAD (coronary artery disease) Associated angina: without angina Coronary Disease-Associated Artery/Lesion type: [place] artery [place] vs. transplanted heart: havas[place]ai heart Qualified Code(s): I25.10 - Atherosclerotic heart disease of havas[place]ai coronary artery without angina pectoris
[2022-10-21] MEDS ORDERED: GLUCAGON FOR INJ 1 MG VIAL SQ PRN (19:44)
[2022-10-21] MEDS ORDERED: GLUCOSE 10 TAB/TUBE PO PRN (19:44)
[2022-10-21] MEDS ORDERED: CARBOHYDRATES FOR HYPOGLYCEMIA PO PRN (19:44)
[2022-10-21] MEDS ORDERED: DEXTROSE 50% 50 ML SYRINGE IV PRN (19:44)
[2022-10-21] MEDS ORDERED: GLUCOSE 40% GEL 15 GM TUBE PO PRN (19:44)
[2022-10-21 20:49] LABS: Base Excess ABG 9.9 mEq/L (-9-1.8); HCO3 ABG 37 mmol/L (19-24); Oxygen Saturation ABG 98.7 % (90-95); PCO2 ABG 58 mmHg (35-46); PO2 ABG 90 mmHg (80-95); pH ABG 7.41 (7.35-7.45)
[2022-10-21 20:52] LABS: Allen Test Pos (Pos)
[2022-10-21] MEDS ORDERED: buPROPion SR 100 MG TABCR PO STA (20:55)
[2022-10-21] MEDS ORDERED: ASPIRIN 81 MG ECTAB PO STA (21:01)
[2022-10-21] MEDS ORDERED: GABAPENTIN 400 MG CAP PO STA (21:16)
[2022-10-21] MEDS ORDERED: AZITHROMYCIN 500 MG in DEXTROSE 5% 250 ML IV STA (21:16)
[2022-10-21] MEDS ORDERED: METOPROLOL TARTRATE 100 MG TAB PO STA (21:16)
[2022-10-21] MEDS ORDERED: HEPARIN SOD 5,000 UNIT/0.5 ML VIAL SQ STA (21:16)
[2022-10-21] MEDS ORDERED: buPROPion SR 150 MG TABCR PO STA (21:17)
[2022-10-21] MEDS ORDERED: POLYETHYLENE (MIRALAX) 17 GM PACK PO PRN (21:52)
[2022-10-21] MEDS: INSULIN ASPART PER UNIT SC SCH (22:43)
--- NOTE | 2022-10-21 23:02 | Communication Note ---
Date of Service: October 21, 2022 additions to H&P No obvious JVD noted on exam. Notified by pharmacy that w/ CrCl in the 40s, max dose of gabapentin would be 900mg/day in divided doses. Patient's outside fill record (contrary to the 400mg TID listed in the chart) states he has been filling 300mg BID. Will need to update during discharge med rec.
[2022-10-21] MEDS ORDERED: LANTUS PER UNIT CHARGE SQ SCH (23:20)
[2022-10-21] MEDS ORDERED: ONDANSETRON INJ 2 MG/ML 2 ML VIAL IV PRN (23:26)
[2022-10-22] MEDS ORDERED: LANTUS PER UNIT CHARGE SQ STA (01:56)
[2022-10-22] MEDS: ALBUT/IPRATROP 3MG/0.5MG NEB 3 ML VIAL NEB SCH ×2 (07:29→19:39)
[2022-10-22] MEDS: methylPREDNISolone 20 MG in SYRINGE 0 ML IV SCH ×2 (09:00→21:10)
[2022-10-22] MEDS: CLOTRIMAZOLE 1% CR 15 GM TUBE EXT SCH ×2 (09:00→21:09)
[2022-10-22] MEDS: CLOPIDOGREL BISULFATE 75 MG TAB PO SCH (09:01)
[2022-10-22] MEDS: FUROSEMIDE 20 MG TAB PO SCH (09:01)
[2022-10-22] MEDS: FINASTERIDE 5 MG TAB PO SCH (09:01)
[2022-10-22] MEDS: buPROPion SR 150 MG TABCR PO SCH ×2 (09:01→21:09)
[2022-10-22] MEDS: METOPROLOL TARTRATE 100 MG TAB PO SCH ×2 (09:01→21:10)
[2022-10-22] MEDS: GABAPENTIN 300 MG CAP PO SCH ×2 (09:01→21:09)
[2022-10-22] MEDS: FLUTICASONE/VILANTEROL 100/25MCG 14 PUFFS/INHALER INH SCH (09:01)
[2022-10-22] MEDS: INSULIN ASPART PER UNIT SC SCH ×4 (09:04→21:07)
[2022-10-22 09:10] LABS: Basophils # (auto) 0.05 K/uL (0-0.2); Basophils % (auto) 0.4 %; Eosinophils # (auto) 0.06 K/uL (0-0.50); Eosinophils % (auto) 0.5 %; Hematocrit (blood only) 43.5 % (42.0-52.0); Hemoglobin 13.6 g/dl (14.0-18.0); Immature Granulocytes # (auto) 0.15 K/uL (0.01-0.20); Immature Granulocytes % (auto) 1.2 %; Lymphocytes # (auto) 0.79 K/uL (1.2-3.4); Lymphocytes % (auto) 6.2 %; Mean Corpuscular Hemoglobin 30.2 pg (25.0-34.0); Mean Corpuscular Hgb Conc 31.3 g/dL (32.0-36.0); Mean Corpuscular Volume 96.5 fL (80.0-100.0); Mean Platelet Volume 9.2 fL (9.4-12.4); Monocytes # (auto) 0.81 K/uL (0.11-0.59); Monocytes % (auto) 6.4 %; Neutrophils # (auto) 10.83 K/uL (1.40-6.50); Neutrophils % (auto) 85.3 %; Platelet Count 201 K/uL (130-400); RDW Coefficient of Variation 14.3 % (11.5-14.5); Red Blood Count 4.51 M/uL (4.70-6.10); White Blood Count 12.69 K/ul (4.8-10.8)
[2022-10-22] MEDS: guaiFENesin 600 MG TABCR PO SCH ×2 (09:22→21:09)
[2022-10-22 09:35] LABS: BUN Creatinine Ratio 13.9 (10-20); Calcium 9.4 mg/dl (8.5-10.1); Creatinine Clr Calc Pharmacy 45.1 ml/min; Est GFR (African American) 39.5 ml/min; Est GFR (Non-African American) 34.1 ml/min; Magnesium 2.1 mg/dl (1.7-2.4); Potassium 4.3 mmol/L (3.5-5.1)
--- NOTE | 2022-10-22 12:49 | Hospitalist Progress Note ---
Date of Service October 22, 2022 Assessment & Plan (1) Acute on chronic respiratory failure with hypoxia and hypercapnia: Plan: 1) Acute on chronic respiratory failure with hypoxia: Plan: 72-year-old male w/ PMHx of COPD on 2L O2, DM2 w/ neuropathy, HTN, HLD, CAD s/p stent, CKD4, BPH, SREEKANTH, OHS, morbid obesity, and left nephrolithiasis who presents via EMS for dyspnea. - COPD exacerbation is highest on differential - also considered element of chronic retention secondary to SREEKANTH, OHS - Bilateral basilar insp crackles, but otherwise not convincing for hypervolemic state. Cxr w/o pulm vasc congestion. BNP wnl. Continue home PO Lasix 20mg daily, but will not provide increased diuretics. - 09/09/22 echo EF 60-65%. grade 1 diastolic dysfunction. - Per 06/2022 nephrology note, on home Lasix because had hypervolemia state in past and concern for R heart dysfunction - Reviewed prior imaging. Not convincing for pneumonia. LLL w/ large bulla. Dc outpatient course of Levaquin. Monitor pulse oximetry (2) COPD (chronic obstructive pulmonary disease): Plan: - vbg (pH 7.31. CO2 86) CO2 retention noted. Exam mild/reassuring; w/o crackles/wheezes - checked ABG after ED treatments: reassuring/improved. ab.41/58/90/37. bipap not indicated. - recheck VBG AM of 10/23 - 06/2022 hosp admission for copd exac that required intubation. - s/p IV methylpred 125mg IV. Subsequent doses will be 20mg q12h - azithro - hold home inhalers - Duoneb treatments. continue home Breo Ellipta (3) Uncontrolled type 2 diabetes mellitus, with long-term current use of insulin: Plan: - a1c 8.4 09/09/22 - basal+SSI - home regimen consists of glargine + Novolog + Trulicity - discrepancy in patient reported insulin regimen (35u Novolog breakfast and lunch. 45u HS glargine) vs chart records (15u Novolog TID. 44u HS glargine) - PCP to follow. patient has endocrine appointment in 11/2022 (4) Maddie rash of groin: Plan: - will treat with topical clotrimazole BID (5) Venous stasis dermatitis of both lower extremities: Plan: - patient with bilateral venous stasis; stable, at baseline - not consistent w/ cellulitis (6) Chronic kidney disease: Plan: - at baseline Cr. Stage 3b vs 4. Renally dose. Avoid nephrotoxic agents. (7) Obstructive sleep apnea of adult: Plan: - not tolerant of cpap therapy as outpatient (8) Depression: Plan: - continue home bupropion. PCP to consider dose adjustment given CrCl of 45.9. (9) Hypertension: Plan: - continue home metoprolol (10) CAD (coronary artery disease): Plan: - continue home Plavix (11) Perineal abscess: Plan: - reassuring exam. follow clinically (12) Diabetic nephropathy: Plan: - continue home gabapentin (2) Dyslipidemia: (3) GERD (gastroesophageal reflux disease): Admission and Anticipated Discharge Date Admission Date: October 21, 2022 Subjective Patient denies any acute complaints No fevers or chills reported Physical Exam Physical Exam: Head and ENT no thyroid enlargement trachea midline Cardiovascular S1-S2 are normal no S3 Lungs bilateral air entry fair no wheezing Abdomen soft nondistended positive bowel sounds no rebound tenderness Extremity shows trace edema Neurologically no focal deficits Skin shows no rash no cyanosis Results & Data Results & [facility]) Vital Signs (Past 12 Hours) Vital Signs Temp Pulse Pulse Resp BP Pulse Ox O2 Del Method 10/22/22 07:45 36.7 C 68 18 113/68 96 Nasal Cannula 10/22/22 07:29 78 16 98 Nasal Cannula O2 Flow Rate 10/22/22 07:45 2 10/22/22 07:29 3 Laboratory Results Short CBC 10/22/22 Range/Units 08:53 WBC 12.69 H (4.8-10.8) K/ul Hgb 13.6 L (14.0-18.0) g/dl Hct 43.5 (42.0-52.0) % Plt Count 201 (130-400) K/uL BMP 10/22/22 08:53 Sodium 140 Potassium 4.3 Chloride 100 Carbon Dioxide 36 H BUN 27 H Creatinine 1.94 H Glucose 162 H Calcium 9.4 PG Care Time/CCT Total # of Minutes Spent Total Time Spent with Patient: Total time spent is greater than 50% in coordination of care (as documented) at patient's floor/unit and/or counseling patient: Coding Level of Care Code 84594 SUB INP/OBS CARE 2MIN Diagnoses Acute on chronic respiratory failure with hypoxia and hypercapnia J96.21; J96.22 Dyslipidemia E78.5 GERD (gastroesophageal reflux disease) K21.9 Esophagitis presence: without esophagitis (3) GERD (gastroesophageal reflux disease) Esophagitis presence: without esophagitis Qualified Code(s): K21.9 - Gastro- esophageal reflux disease without esophagitis
[2022-10-22] MEDS: LANTUS PER UNIT CHARGE SQ SCH (21:08)
[2022-10-22] MEDS: AZITHROMYCIN 250 MG TAB PO SCH (21:09)
[2022-10-22] MEDS: ASPIRIN 81 MG ECTAB PO SCH (21:09)
[2022-10-23] MEDS: ALBUT/IPRATROP 3MG/0.5MG NEB 3 ML VIAL NEB SCH ×2 (07:02→19:43)
[2022-10-23 08:31] LABS: Base Excess VBG 9.6 mEq/L; HCO3 VBG 38 mmol/L; Oxygen Saturation VBG 80.5 %; PCO2 VBG 71 mmHg (38-50); PO2 VBG 48 mmHg; pH VBG 7.34 (7.36-7.41)
[2022-10-23 08:41] LABS: Hematocrit (blood only) 42.7 % (42.0-52.0); Hemoglobin 13.2 g/dl (14.0-18.0); Mean Corpuscular Hgb Conc 30.9 g/dL (32.0-36.0); Mean Platelet Volume 9.1 fL (9.4-12.4); Platelet Count 209 K/uL (130-400); RDW Coefficient of Variation 14.3 % (11.5-14.5); RDW Standard Deviation 51.1 fL (36.4-46.3); White Blood Count 10.31 K/ul (4.8-10.8)
[2022-10-23 08:57] LABS: BUN Creatinine Ratio 16.5 (10-20); Calcium 9.5 mg/dl (8.5-10.1); Creatinine Clr Calc Pharmacy 43.7 ml/min; Est GFR (African American) 38.1 ml/min; Est GFR (Non-African American) 32.8 ml/min; Potassium 3.9 mmol/L (3.5-5.1)
[2022-10-23] MEDS: CLOPIDOGREL BISULFATE 75 MG TAB PO SCH (09:00)
[2022-10-23] MEDS: METOPROLOL TARTRATE 100 MG TAB PO SCH ×2 (09:00→20:41)
[2022-10-23] MEDS: FUROSEMIDE 20 MG TAB PO SCH (09:00)
[2022-10-23] MEDS: FLUTICASONE/VILANTEROL 100/25MCG 14 PUFFS/INHALER INH SCH (09:00)
[2022-10-23] MEDS: methylPREDNISolone 20 MG in SYRINGE 0 ML IV SCH ×2 (09:00→20:54)
[2022-10-23] MEDS: guaiFENesin 600 MG TABCR PO SCH ×2 (09:00→20:42)
[2022-10-23] MEDS: FINASTERIDE 5 MG TAB PO SCH (09:01)
[2022-10-23] MEDS: CLOTRIMAZOLE 1% CR 15 GM TUBE EXT SCH ×2 (09:01→20:42)
[2022-10-23] MEDS: GABAPENTIN 300 MG CAP PO SCH ×2 (09:01→20:42)
[2022-10-23] MEDS: buPROPion SR 150 MG TABCR PO SCH ×2 (09:01→20:41)
[2022-10-23] MEDS: INSULIN ASPART PER UNIT SC SCH ×4 (09:01→20:48)
--- NOTE | 2022-10-23 18:22 | Hospitalist Progress Note ---
Date of Service October 23, 2022 Assessment & Plan (1) Acute on chronic respiratory failure with hypoxia and hypercapnia: Plan: 1) Acute on chronic respiratory failure with hypoxia: Plan: 72-year-old male w/ PMHx of COPD on 2L O2, DM2 w/ neuropathy, HTN, HLD, CAD s/p stent, CKD4, BPH, SREEKANTH, OHS, morbid obesity, and left nephrolithiasis who presents via EMS for dyspnea. - COPD exacerbation is highest on differential - also considered element of chronic retention secondary to SREEKANTH, OHS - Bilateral basilar insp crackles, but otherwise not convincing for hypervolemic state. Cxr w/o pulm vasc congestion. BNP wnl. Continue home PO Lasix 20mg daily, but will not provide increased diuretics. - 09/09/22 echo EF 60-65%. grade 1 diastolic dysfunction. - Per 06/2022 nephrology note, on home Lasix because had hypervolemia state in past and concern for R heart dysfunction - Reviewed prior imaging. Not convincing for pneumonia. LLL w/ large bulla. Dc outpatient course of Levaquin. Monitor pulse oximetry 10/23--patient improving on IV Solu-Medrol 20 mg every 12 along with azithromycin Discussed with patient and his family in detail regarding discharge plans We will obtain PT OT input to see if patient able to resume his activities of daily living prior to planned DC over the next 24 to 48 hours Patient subjectively reports feeling better at rest but has shortness of breath when he exerts minimally Continue home dose of Breo Ellipta along with DuoNeb treatments Plan to switch IV Solu-Medrol to oral steroids prior to DC over the next 1 to 2 days (2) COPD (chronic obstructive pulmonary disease): Plan: - vbg (pH 7.31. CO2 86) CO2 retention noted. Exam mild/reassuring; w/o crackles/wheezes - checked ABG after ED treatments: reassuring/improved. ab.41/58/90/37. bipap not indicated. - recheck VBG AM of 10/23 - 06/2022 hosp admission for copd exac that required intubation. - s/p IV methylpred 125mg IV. Subsequent doses will be 20mg q12h - azithro - hold home inhalers - Duoneb treatments. continue home Breo Ellipta (3) Uncontrolled type 2 diabetes mellitus, with long-term current use of insulin: Plan: - a1c 8.4 09/09/22 - basal+SSI - home regimen consists of glargine + Novolog + Trulicity - discrepancy in patient reported insulin regimen (35u Novolog breakfast and lunch. 45u HS glargine) vs chart records (15u Novolog TID. 44u HS glargine) - PCP to follow. patient has endocrine appointment in 11/2022 (4) Maddie rash of groin: Plan: - will treat with topical clotrimazole BID (5) Venous stasis dermatitis of both lower extremities: Plan: - patient with bilateral venous stasis; stable, at baseline - not consistent w/ cellulitis (6) Chronic kidney disease: Plan: - at baseline Cr. Stage 3b vs 4. Renally dose. Avoid nephrotoxic agents. (7) Obstructive sleep apnea of adult: Plan: - not tolerant of cpap therapy as outpatient (8) Depression: Plan: - continue home bupropion. PCP to consider dose adjustment given CrCl of 45.9. (9) Hypertension: Plan: - continue home metoprolol (10) CAD (coronary artery disease): Plan: - continue home Plavix (11) Perineal abscess: Plan: - reassuring exam. follow clinically (12) Diabetic nephropathy: Plan: - continue home gabapentin (2) Dyslipidemia: (3) GERD (gastroesophageal reflux disease): Admission and Anticipated Discharge Date Admission Date: October 21, 2022 Subjective Patient denies any acute complaints at rest Patient however has exertional dyspnea Patient's at bedside and is not sure if patient will be able to resume his baseline activities if he returns home Patient on 2 L nasal cannula at home at baseline No fevers or chills reported Physical Exam Physical Exam: Head and ENT no thyroid enlargement trachea midline Cardiovascular S1-S2 are normal no S3 Lungs bilateral air entry improved compared to yesterday no active wheezing Abdomen soft nondistended positive bowel sounds no rebound tenderness Extremity shows trace edema Neurologically no focal deficits Skin shows no rash no cyanosis Results & Data Results & Data ([facility]) Vital Signs (Past 12 Hours) Vital Signs Temp Pulse Resp BP Pulse Ox Pulse Ox Pulse Ox 10/23/22 15:12 36.6 C 62 18 122/73 93 10/23/22 14:16 92 95 10/23/22 09:00 10/23/22 07:19 36.4 C L 61 18 149/77 H 98 10/23/22 07:04 80 16 95 Pulse Ox O2 Del Method O2 Flow Rate O2 Flow Rate O2 Flow Rate O2 Flow Rate 10/23/22 15:12 Nasal Cannula 2 10/23/22 14:16 91 2 2 2 10/23/22 09:00 Nasal Cannula 3 10/23/22 07:19 Nasal Cannula 2 10/23/22 07:04 Nasal Cannula 2 Laboratory Results Short CBC 10/23/22 Range/Units 08:07 WBC 10.31 (4.8-10.8) K/ul Hgb 13.2 L (14.0-18.0) g/dl Hct 42.7 (42.0-52.0) % Plt Count 209 (130-400) K/uL BMP 10/23/22 08:07 Sodium 142 Potassium 3.9 Chloride 102 Carbon Dioxide 37 H BUN 33 H Creatinine 2.00 H Glucose 171 H Calcium 9.5 PG Care Time/CCT Total # of Minutes Spent Total Time Spent with Patient: Total time spent is greater than 50% in coordination of care (as documented) at patient's floor/unit and/or counseling patient: Coding Level of Care Code 66148 SUB INP/OBS CARE 2MIN Diagnoses Acute on chronic respiratory failure with hypoxia and hypercapnia J96.21; J96.22 Dyslipidemia E78.5 GERD (gastroesophageal reflux disease) K21.9 Esophagitis presence: without esophagitis (3) GERD (gastroesophageal reflux disease) Esophagitis presence: without esophagitis Qualified Code(s): K21.9 - Gastro- esophageal reflux disease without esophagitis
[2022-10-23] MEDS: ASPIRIN 81 MG ECTAB PO SCH (20:41)
[2022-10-23] MEDS: AZITHROMYCIN 250 MG TAB PO SCH (20:41)
[2022-10-23] MEDS: LANTUS PER UNIT CHARGE SQ SCH (20:48)
[2022-10-24] MEDS: ALBUT/IPRATROP 3MG/0.5MG NEB 3 ML VIAL NEB SCH ×2 (06:59→19:41)
[2022-10-24 07:05] LABS: Hematocrit (blood only) 40.5 % (42.0-52.0); Hemoglobin 13.1 g/dl (14.0-18.0); Mean Corpuscular Hemoglobin 30.5 pg (25.0-34.0); Mean Corpuscular Hgb Conc 32.3 g/dL (32.0-36.0); Mean Corpuscular Volume 94.4 fL (80.0-100.0); Mean Platelet Volume 9.1 fL (9.4-12.4); Platelet Count 212 K/uL (130-400); RDW Standard Deviation 48.9 fL (36.4-46.3); Red Blood Count 4.29 M/uL (4.70-6.10); White Blood Count 10.43 K/ul (4.8-10.8)
[2022-10-24 07:20] LABS: BUN Creatinine Ratio 16.3 (10-20); Calcium 8.8 mg/dl (8.5-10.1); Creatinine Clr Calc Pharmacy 41.8 ml/min; Est GFR (African American) 36.1 ml/min; Est GFR (Non-African American) 31.1 ml/min; Potassium 3.9 mmol/L (3.5-5.1)
[2022-10-24] MEDS: methylPREDNISolone 20 MG in SYRINGE 0 ML IV SCH ×2 (07:41→20:24)
[2022-10-24] MEDS: CLOPIDOGREL BISULFATE 75 MG TAB PO SCH (07:41)
[2022-10-24] MEDS: FUROSEMIDE 20 MG TAB PO SCH (07:41)
[2022-10-24] MEDS: FINASTERIDE 5 MG TAB PO SCH (07:41)
[2022-10-24] MEDS: guaiFENesin 600 MG TABCR PO SCH ×2 (07:42→20:27)
[2022-10-24] MEDS: CLOTRIMAZOLE 1% CR 15 GM TUBE EXT SCH ×3 (07:42→20:29)
[2022-10-24] MEDS: buPROPion SR 150 MG TABCR PO SCH ×2 (07:42→20:25)
[2022-10-24] MEDS: FLUTICASONE/VILANTEROL 100/25MCG 14 PUFFS/INHALER INH SCH (07:42)
[2022-10-24] MEDS: GABAPENTIN 300 MG CAP PO SCH ×2 (07:42→20:25)
[2022-10-24] MEDS: METOPROLOL TARTRATE 100 MG TAB PO SCH ×2 (07:42→20:25)
[2022-10-24] MEDS: INSULIN ASPART PER UNIT SC SCH ×4 (08:35→20:51)
--- NOTE | 2022-10-24 18:02 | Hospitalist Progress Note ---
Date of Service October 24, 2022 Assessment & Plan (1) Acute on chronic respiratory failure with hypoxia and hypercapnia: Plan: 72-year-old male w/ PMHx of COPD on 2L O2, DM2 w/ neuropathy, HTN, HLD, CAD s/p stent, CKD4, BPH, SREEKANTH, OHS, morbid obesity, and left nephrolithiasis who presents via EMS for dyspnea. - COPD exacerbation is cause-improving with IV steroids, bronchodilators -now back to baseline 2 LNC supplemental O2 - also w/ element of chronic CO2 retention secondary to COPD and OHS - Bilateral basilar insp crackles, but otherwise not convincing for hypervolemic state. Cxr w/o pulm vasc congestion. BNP wnl. Continue home PO Lasix 20mg daily, but will not provide increased diuretics. - 09/09/22 echo EF 60-65%. grade 1 diastolic dysfunction. - Reviewed CXR. Not convincing for pneumonia. LLL w/ large bulla. Dcd outpatient course of Levaquin he was on prior to admission -Monitor pulse oximetry -Continue home dose of Breo Ellipta along with DuoNeb treatments -convert IV Solu-Medrol to oral steroids tomorrow AM -continues on azithro 5 day course (2) COPD (chronic obstructive pulmonary disease): Plan: - vbg (pH 7.31. CO2 86) CO2 retention noted. 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 ab.41/58/90/37. bipap not indicated. - 06/2022 hosp admission for copd exac that required intubation. Continue treatment as above (3) Normocytic anemia: Plan: Hemoglobin at baseline 13.1, normocytic Has a history of B12 deficiency but is not on supplementation Check B12, folate, iron studies in the morning TSH normal in 03/2022 (4) Obstructive sleep apnea of adult: Plan: - not tolerant of cpap therapy as outpatient (5) Uncontrolled type 2 diabetes mellitus with diabetic nephropathy, with long- term current use of insulin: Plan: - a1c 8.4 09/09/22 - basal+SSI - home regimen consists of glargine + Novolog + Trulicity -patient has endocrine appointment in 11/2022 (6) Vitamin B12 deficiency: Plan: As above, checking level in the morning (7) CAD (coronary artery disease): Plan: Status post stent placement 10+ years ago No acute issues - continue home Plavix, aspirin, metoprolol His atorvastatin is not on the home med list but he was supposed to be on it as recently as his discharge from [facility] a few weeks ago-will add back on (8) Maddie rash of groin: Plan: -Continue topical clotrimazole BID (9) CKD (chronic kidney disease) stage 4, GFR 15-29 ml/min: Plan: - at baseline Cr of 2.0 Stage 3b vs 4. Renally dose. Avoid nephrotoxic agents. (10) Depression: Plan: - continue home bupropion (11) HTN (hypertension), benign: Plan: Blood pressures are controlled - continue home metoprolol (12) Obesity: Plan: BMI 48.6 Needs weight loss Plan DVT prophylaxis-add heparin SQ given prolonged stay Disposition-continued stay, medically stable for discharge likely tomorrow. Needs rehab Admission and Anticipated Discharge Date Admission Date: October 21, 2022 Subjective Pt reports he always feels SOB with exertion, nothing new for him. He is hesitant to go to rehab but understands why he should if it's recommended. No other concerns. Review of Systems Review of Systems: All systems reviewed & are unremarkable except as noted in HPI & below Physical Exam Constitutional: WD/WN, vitals as above + obese Eyes: + anicteric sclerae Respiratory: normal respiratory effort; no labored breathing Auscultation: + diminished lung sounds (throughout); no crackles and no wheezes Cardiovascular: Rate/Rhythm: regular rate and regular rhythm Heart Sounds: no murmur Extremities: + edema (2+ woody edema with chronic venous stasis changes) Gastrointestinal (Abdomen): normal bowel sounds, soft, nontender, no hepatosplenomegaly Neurologic: no focal motor deficits and not confused Psychiatric: A+Ox3, euthymic affect Results & Data Results & Data ([facility]) Vital Signs (Past 12 Hours) Vital Signs Temp Pulse Resp BP Pulse Ox O2 Del Method O2 Flow Rate 10/24/22 15:39 36.6 C 66 18 121/73 95 Nasal Cannula 2 10/24/22 07:59 151/80 H 10/24/22 07:58 36.6 C 58 L 18 162/81 H 94 Nasal Cannula 2 10/24/22 07:00 72 16 97 Nasal Cannula 2 Laboratory Results CBC and BMP reviewed PG Care Time/CCT Total # of Minutes Spent Total Time Spent with Patient: Total time spent is greater than 50% in coordination of care (as documented) at patient's floor/unit and/or counseling patient: Coding Level of Care Code 33449 SUB INP/OBS CARE 2/35MIN Diagnoses Acute on chronic respiratory failure with hypoxia and hypercapnia J96.21; J96.22 COPD (chronic obstructive pulmonary disease) J44.9 COPD type: unspecified COPD Normocytic anemia D64.9 Obstructive sleep apnea of adult G47.33 Uncontrolled type 2 diabetes mellitus with diabetic nephropathy, with long-term current use of insulin E11.21; E11.65; Z79.4 Vitamin B12 deficiency E53.8 CAD (coronary artery disease) I25.10 Coronary Disease-Associated Artery/Lesion type: [place] artery [place] vs. transplanted heart: [place] heart Associated angina: without angina Maddie rash of groin B37.89 CKD (chronic kidney disease) stage 4, GFR 15-29 ml/min N18.4 Depression F32.9 Depression Type: unspecified HTN (hypertension), benign I10 Obesity E66.9 (2) COPD (chronic obstructive pulmonary disease) COPD type: unspecified COPD Qualified Code(s): J44.9 - Chronic obstructive pulmonary disease, unspecified (7) CAD (coronary artery disease) Coronary Disease-Associated Artery/Lesion type: [place] artery [place] vs. transplanted heart: [place] heart Associated angina: without angina Qualified Code(s): I25.10 - Atherosclerotic heart disease of [place] coronary artery without angina pectoris (10) Depression Depression Type: unspecified Qualified Code(s): F32.9 - Major depressive disorder, single episode, unspecified
[2022-10-24] MEDS: AZITHROMYCIN 250 MG TAB PO SCH (20:26)
[2022-10-24] MEDS: ASPIRIN 81 MG ECTAB PO SCH (20:26)
[2022-10-24] MEDS: LANTUS PER UNIT CHARGE SQ SCH (20:50)
[2022-10-24] MEDS: HEPARIN SOD 5,000 UNIT/0.5 ML VIAL SQ SCH (20:56)
[2022-10-25] MEDS: ALBUT/IPRATROP 3MG/0.5MG NEB 3 ML VIAL NEB SCH (07:08)
[2022-10-25 08:01] LABS: Basophils # (auto) 0.06 K/uL (0-0.2); Basophils % (auto) 0.6 %; Eosinophils # (auto) 0.05 K/uL (0-0.50); Eosinophils % (auto) 0.5 %; Hematocrit (blood only) 41.9 % (42.0-52.0); Hemoglobin 13.3 g/dl (14.0-18.0); Immature Granulocytes # (auto) 0.22 K/uL (0.01-0.20); Immature Granulocytes % (auto) 2.2 %; Lymphocytes # (auto) 1.03 K/uL (1.2-3.4); Lymphocytes % (auto) 10.2 %; Mean Corpuscular Hgb Conc 31.7 g/dL (32.0-36.0); Mean Corpuscular Volume 94.4 fL (80.0-100.0); Mean Platelet Volume 9.2 fL (9.4-12.4); Neutrophils # (auto) 8.01 K/uL (1.40-6.50); Neutrophils % (auto) 79.5 %; Platelet Count 215 K/uL (130-400); RDW Standard Deviation 48.3 fL (36.4-46.3); Red Blood Count 4.44 M/uL (4.70-6.10); White Blood Count 10.07 K/ul (4.8-10.8)
[2022-10-25 08:09] LABS: BUN Creatinine Ratio 16.9 (10-20); Calcium 8.9 mg/dl (8.5-10.1); Creatinine Clr Calc Pharmacy 42.2 ml/min; Est GFR (African American) 36.5 ml/min; Est GFR (Non-African American) 31.5 ml/min; Potassium 3.7 mmol/L (3.5-5.1)
[2022-10-25] MEDS: METOPROLOL TARTRATE 100 MG TAB PO SCH (08:27)
[2022-10-25] MEDS: CLOPIDOGREL BISULFATE 75 MG TAB PO SCH (08:27)
[2022-10-25] MEDS: HEPARIN SOD 5,000 UNIT/0.5 ML VIAL SQ SCH (08:27)
[2022-10-25] MEDS: guaiFENesin 600 MG TABCR PO SCH (08:27)
[2022-10-25 08:28] LABS: Ferritin 96.6 ng/ml (8-388)
[2022-10-25] MEDS: FINASTERIDE 5 MG TAB PO SCH (08:28)
[2022-10-25] MEDS: GABAPENTIN 300 MG CAP PO SCH (08:28)
[2022-10-25] MEDS: buPROPion SR 150 MG TABCR PO SCH (08:28)
[2022-10-25] MEDS: FLUTICASONE/VILANTEROL 100/25MCG 14 PUFFS/INHALER INH SCH (08:28)
[2022-10-25] MEDS: FUROSEMIDE 20 MG TAB PO SCH (08:28)
[2022-10-25] MEDS: CLOTRIMAZOLE 1% CR 15 GM TUBE EXT SCH (08:33)
[2022-10-25] MEDS ORDERED: predniSONE 20 MG TAB PO SCH (09:00)
[2022-10-25] MEDS ORDERED: ATORVASTATIN 40 MG TAB PO SCH (09:00)
[2022-10-25] MEDS: INSULIN ASPART PER UNIT SC SCH ×3 (09:09→17:25)
--- NOTE | 2022-10-25 14:28 | Discharge Summary ---
Date of Service October 25, 2022 Admission HPI Per Admitting Provider 72-year-old male w/ PMHx of COPD on 2L O2, DM2 w/ neuropathy, HTN, HLD, CAD s/p stent, CKD4, BPH, SREEKANTH, OHS, morbid obesity, and left nephrolithiasis who presents via EMS for dyspnea. He had increased O2 req to 3L today as he had desaturation to low 80s while working w/ physical therapy. Physical therapy recommended ED eval. Patient felt slightly lightheaded and appeared pale at the time. He denies illness symptoms such as f/c, cp, sob, mcwilliams, n/v, diarrhea. He has not had cough or increased sputum production. Postnasal drip is white in color. He was seen in the ED on 10/16 for left flank pleuritic pain and was diagnosed with possible pneumonia for possible mild left basilar opacity on CTA; 10 day course of Levaquin was prescribed. Patient was admitted from 09/08-09/14 for bilateral leg cellulitis. Patient was then at [facility] rehab until 09/28. ED course: IV Lasix 20mg. IV methylpred 125mg. Duoneb. Discharge Exam Constitutional WD/WN, vitals as above + obese Eyes + anicteric sclerae Respiratory normal respiratory effort; no labored breathing Auscultation: + diminished lung sounds (throughout); no crackles and no wheezes Cardiovascular Rate/Rhythm: regular rate and regular rhythm Heart Sounds: no murmur Extremities: + edema (2+ woody edema with chronic venous stasis changes) Gastrointestinal (Abdomen) normal bowel sounds, soft, nontender, no hepatosplenomegaly Neurologic no focal motor deficits and not confused Psychiatric A+Ox3, euthymic affect Discharge Data Allergies Allergy/AdvReac Type Severity Reaction Status Date / Time No Known Allergies Allergy Verified 10/21/22 16:06 Consultations 10/21/22 17:08 ED Decision to Admit Stat Hospital Course (1) Acute on chronic respiratory failure with hypoxia and hypercapnia: 72-year-old male w/ PMHx of COPD on 2L O2, DM2 w/ neuropathy, HTN, HLD, CAD s/p stent, CKD4, BPH, SREEKANTH, OHS, morbid obesity, and left nephrolithiasis who presents via EMS for dyspnea. - COPD exacerbation is cause-improving with IV steroids, bronchodilators -now back to baseline 2 LNC supplemental O2 - also w/ element of chronic CO2 retention secondary to COPD and OHS - Bilateral basilar insp crackles, but otherwise not convincing for hypervolemic state. Cxr w/o pulm vasc congestion. BNP wnl. Continue home PO Lasix 20mg daily, but will not provide increased diuretics. - 09/09/22 echo EF 60-65%. grade 1 diastolic dysfunction. - Reviewed CXR. Not convincing for pneumonia. LLL w/ large bulla. Dcd outpatient course of Levaquin he was on prior to admission -Monitor pulse oximetry -Continue home dose of Breo Ellipta along with DuoNeb treatments -convert IV Solu-Medrol to oral steroids tomorrow AM -continues on azithro 5 day course (2) COPD (chronic obstructive pulmonary disease): - vbg (pH 7.31. CO2 86) CO2 retention noted. Exam mild/reassuring; w/o crackles/wheezes - checked ABG after ED treatments: reassuring/improved. ab.41/58/90/37. bipap not indicated. - 06/2022 hosp admission for copd exac that required intubation. Continue treatment as above (3) Normocytic anemia: Hemoglobin at baseline 13.1, normocytic Has a history of B12 deficiency but is not on supplementation Check B12, folate, iron studies in the morning TSH normal in 03/2022 (4) Obstructive sleep apnea of adult: - not tolerant of cpap therapy as outpatient (5) Uncontrolled type 2 diabetes mellitus with diabetic nephropathy, with long- term current use of insulin: - a1c 8.4 09/09/22 - basal+SSI - home regimen consists of glargine + Novolog + Trulicity -patient has endocrine appointment in 11/2022 (6) Vitamin B12 deficiency: As above, checking level in the morning (7) CAD (coronary artery disease): Status post stent placement 10+ years ago No acute issues - continue home Plavix, aspirin, metoprolol His atorvastatin is not on the home med list but he was supposed to be on it as recently as his discharge from [facility] a few weeks ago-will add back on (8) Amddie rash of groin: -Continue topical clotrimazole BID (9) CKD (chronic kidney disease) stage 4, GFR 15-29 ml/min: - at baseline Cr of 2.0 Stage 3b vs 4. Renally dose. Avoid nephrotoxic agents. (10) Depression: - continue home bupropion (11) HTN (hypertension), benign: Blood pressures are controlled - continue home metoprolol (12) Obesity: BMI 48.6 Needs weight loss Plan DVT prophylaxis-add heparin SQ given prolonged stay Disposition-continued stay, medically stable for discharge likely tomorrow. Needs rehab Discharge Plan Discharge Items Patient Disposition: Home - Home Health Services Reason For Visit: INCREASED OXYGEN REQUIREMENT Discharge Diagnosis: Acute on chronic respiratory failure with hypoxia, COPD exacerbation Activity: Resume your previous activity Non-emergency contact: Primary Care Provider Call non-emergency contact if: you have any medication questions and your symptoms worsen Follow-up/Referrals: Salas Valente DO [Primary Care Provider] - (Follow up within 1-2 weeks.) Diet: Carb Consistent or DM2 and Heart Healthy Addtl Attending Provider Instructions: Please finish out 2 more days of prednisone which is a steroid that reduces the inflammation in your lungs. You have one more day of the antibiotic called azithromycin. You had a repeat oxygen test which showed you only need to wear oxygen 2L nasal cannula when you get up and walk around. Pending Studies at Discharge: No Stand-Alone Forms: [email or web address], Smoking Cessation Medications and DC Order Prescriptions: New azithromycin 250 mg Tablet 250 mg PO HS Qty: 1 0RF atorvastatin 40 mg Tablet 40 mg PO QAM Qty: 30 0RF prednisone 20 mg Tablet 40 mg PO QAM Qty: 4 0RF Continued Trulicity 1.5 mg/0.5 mL pen injector 1.5 mg subcut Q7D 90 Days Qty: 12 3RF Rx Instructions: TAKES ON MONDAYS metoprolol tartrate [Lopressor] 100 mg tablet 100 mg PO BID Qty: 180 3RF bupropion HCl 150 mg tablet sustained-release 12 hr 150 mg PO BID 90 Days Qty: 180 3RF ipratropium-albuterol 0.5 mg-3 mg(2.5 mg base)/3 mL solution for nebulization 3 ml inhalation Q4 PRN (Reason: wheezing) Qty: 360 11RF Rx Instructions: DX: J44.9-COPD fluticasone furoate-vilanterol [Breo Ellipta] 100-25 mcg/dose blister with device 1 inh inhalation DAILY Qty: 60 2RF Rx Instructions: USUALLY JUST USES PRN finasteride [Proscar] 5 mg tablet 5 mg PO QAM Qty: 90 3RF clopidogrel 75 mg tablet 75 mg PO QAM Qty: 90 3RF furosemide 20 mg tablet 20 mg PO DAILY Qty: 90 3RF ondansetron 4 mg tablet,disintegrating 4 mg PO Q4H PRN (Reason: Nausea) docusate sodium 100 mg capsule 100 mg PO BID gabapentin 400 mg capsule 400 mg PO TID Qty: 90 5RF insulin aspart U-100 [Novolog U-100 Insulin aspart] 100 unit/mL solution 16 unit subcut TID Qty: 10 2RF cholecalciferol (vitamin D3) [Vitamin D3] 1,000 unit Tablet 1,000 unit PO BID acetaminophen 325 mg tablet 650 mg PO TID PRN (Reason: Pain) aspirin 81 mg Tablet,Delayed Release (Dr/Ec) 81 mg PO QPM polyethylene glycol 3350 [Miralax] 17 gram Powder In Packet 17 g PO TID PRN (Reason: constipation) Qty: 30 0RF Lac-Hydrin Five 5 % Lotion 1 g EXT BID Qty: 5 0RF nystatin [Nystop] 100,000 unit/gram powder 1 applic EXT DAILY PRN (Reason: infection) insulin glargine U-300 conc 300 unit/mL (3 mL) insulin pen 44 unit subcut HS albuterol sulfate 0.63 mg/3 mL solution for nebulization 0.63 mg continuous nebulization QID PRN (Reason: Shortness Of Breath Or Wheezing) Discontinued levofloxacin 750 mg tablet 750 mg PO Q OTHER DAY Rx Instructions: STARTED 10/16/22 FOR 10 DAYS. Every other day due to kidney function Discharge Orders: Discharge Order (Routine); Ordered 10/25/22 Ordered By: Grace Malcolm Admission Data Admit Date/Time: 10/21/22 19:42 Attending Provider: Grace Malcolm Admit Provider: Scooter Ramirez Primary Care Provider: Salas Valente Other Providers: Haseeb Guevara Coding Diagnoses Acute on chronic respiratory failure with hypoxia and hypercapnia J96.21; J96.22 COPD (chronic obstructive pulmonary disease) J44.9 COPD type: unspecified COPD Normocytic anemia D64.9 Obstructive sleep apnea of adult G47.33 Uncontrolled type 2 diabetes mellitus with diabetic nephropathy, with long-term current use of insulin E11.21; E11.65; Z79.4 Vitamin B12 deficiency E53.8 CAD (coronary artery disease) I25.10 Coronary Disease-Associated Artery/Lesion type: [place] artery [place] vs. transplanted heart: [place] heart Associated angina: without angina Maddie rash of groin B37.89 CKD (chronic kidney disease) stage 4, GFR 15-29 ml/min N18.4 Depression F32.9 Depression Type: unspecified HTN (hypertension), benign I10 Obesity E66.9
== END 2022-10-25 17:52 | disposition home health service (06) | DRG 190 ==
LOC: ED 14:09 → SUATTDRO 19:42 → 3N 19:42

== ENCOUNTER 2022-12-15 08:53 | Observation (INO) ==
--- NOTE | 2022-12-12 10:19 | Anesthesiology Consultation ---
Date of Service December 12, 2022 Assessment & Plan (1) Encounter for pre-operative examination: Plan - check BSG and BMP STAT am DOS. - cardiology 12/05/22 MN: "...Blood pressure is at target today. He should continue with metoprolol tartrate 100 mg daily. He is CAR inhibitor has been held which is appropriate given his renal dysfunction...clearly has volume overload in the lower extremities. I suspect he has significant pulmonary hypertension secondary to sleep apnea although the echo was unable to confirm this. May also have some degree of RV failure. Also likely to have venous insufficiency. Agree with increased Lasix 40 mg daily. We will need to reassess. I suspect that he should constantly have at least 40 mg of Lasix to maintain volume status and reduce edema. I am concerned about the appearance of his lower extremities not only from a volume status but also because of the weeping and tense nature of the skin with erythema he is at risk for significant cellulitis...CAD (coronary artery disease): No angina although his activity level is somewhat limited. Known mild residual disease. Blood pressure and heart rate are at target. Continue guideline directed medical therapy for secondary prevention with aspirin 81 mg daily, a atorvastatin 40 mg daily, and metoprolol tartrate 100 mg twice daily. He is also on Plavix which is unnecessary for his coronary disease but may be appropriate for neurologic r easons...Follow Up: 2 to 4 weeks..." Scheduled for appt 12/23/22. - Case discussed in detail with Dr. Goins who advised that pt is acceptable to proceed at current status from his standpoint and does not need further evaluation prior to surgery. - COVID screening: Per fundraising specialist on 12/12/2022: Travel screen negative, no known COVID-19 positive contacts or current COVID-19 related symptoms in past 2 weeks. To surgeon's discretion if preop COVID testing is needed. Chart Review Chart Review: Acceptable Risk for Surgery and Patient NOT seen in Pre Admission Testing History Surgery Operation Date: 12/15/22 09:20 Proposed Procedures p Rectal Exam Under Anesthesia, Fistulotomy - Demetrius Regan MD, FACS Height/Weight Height: 5 ft 11 in Weight: 131.542 kg Allergies Allergy/AdvReac Type Severity Reaction Status Date / Time No Known Allergies Allergy Verified 12/12/22 08:33 Medications Home Medications Medication Instructions Recorded Confirmed Last Taken cholecalciferol (vitamin D3) 25 1,000 unit PO BID 08/22/18 12/12/22 10/21/22 08:00 mcg (1,000 unit) tablet (Vitamin D3) acetaminophen 325 mg tablet 650 mg PO TID PRN Pain 04/27/20 12/12/22 04/26/20 aspirin 81 mg tablet,delayed 81 mg PO QPM 06/08/20 12/12/22 10/20/22 release albuterol sulfate 0.63 mg/3 mL 0.63 mg continuous nebulization 03/27/21 12/12/22 10/15/22 solution for nebulization QID PRN Shortness Of Breath Or Wheezing metoprolol tartrate 100 mg tablet 100 mg PO BID #180 tabs 12/17/21 12/12/22 10/21/22 08:00 (Lopressor) bupropion HCl 150 mg tablet,12 hr 150 mg PO BID 90 days #180 ea 03/23/22 12/12/22 10/21/22 08:00 sustained-release clopidogrel 75 mg tablet 75 mg PO QAM #90 tabs 04/04/22 12/12/22 10/21/22 ipratropium 0.5 mg-albuterol 3 mg 3 ml inhalation Q4 PRN wheezing 06/07/22 12/12/22 10/15/22 (2.5 mg base)/3 mL nebulization #360 mL soln ammonium lactate 5 % lotion 1 g EXT BID #5 grams 09/14/22 12/12/22 10/21/22 08:00 (Lac-Hydrin Five) polyethylene glycol 3350 17 gram 17 g PO TID PRN constipation #30 ea 09/14/22 12/12/22 10/15/22 oral powder packet (Miralax) docusate sodium 100 mg capsule 100 mg PO BID 09/22/22 12/12/22 10/21/22 08:00 ondansetron 4 mg disintegrating 4 mg PO Q4H PRN Nausea 09/22/22 12/12/22 10/15/22 tablet insulin aspart U-100 100 unit/mL 16 unit (0.16 mL) subcut TID #10 mL 09/29/22 12/12/22 10/21/22 subcutaneous solution (Novolog U-100 Insulin aspart) nystatin 100,000 unit/gram topical 1 applic EXT DAILY PRN infection 10/16/22 12/12/22 10/15/22 powder (Nystop) atorvastatin 40 mg tablet 40 mg PO QAM #30 tabs 10/25/22 12/12/22 Unknown flash glucose sensor (FreeStyle 12/05/22 12/06/22 Unknown Nidia 2 Sensor kit) fluticasone 250 mcg-salmeterol 50 1 ea inhalation QAM 12/05/22 12/12/22 Unknown mcg/dose blistr powdr for inhalation (Advair Diskus) insulin degludec 200 unit/mL (3 44 unit subcut HS 12/05/22 12/12/22 Unknown mL) subcutaneous pen (Tresiba FlexTouch U-200 insulin) finasteride 5 mg tablet (Proscar) 5 mg PO QAM 12/12/22 12/12/22 Unknown furosemide 20 mg tablet 40 mg PO QAM 12/12/22 12/12/22 Unknown gabapentin 400 mg capsule 400 mg PO BID 12/12/22 12/12/22 Unknown Past Medical History Medical History (Updated 12/12/22 @ 10:27 by Cayla Peralta PA-C) Acute kidney injury superimposed on CKD follows with Dr. Man saw him last week CAD (coronary artery disease) coronary artery disease with prior [place] complicated by V-fib arrest. 2 drug- eluting stents placed at that time (2010) and mild residual nonocclusive disease. follows with Dr. 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 to CTA report 09/2022 Lung abnormality "has a hole in bottom left lung" to be scheduling surgery within the month per pt's , 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 Morbid obesity with BMI of 40.0-44.9, adult Nephrolithiasis Admitted to [facility] for 7 mm L ureteral stone causing hydronephrosis/EDILMA Neuropathy feet On anticoagulant therapy plavix daily On home oxygen therapy 2L N/C prn Physical debility uses wheelchair > can walk a few steps SBO (small bowel obstruction) hx and resolved no surgery Sleep apnea no device Uncontrolled type 2 diabetes mellitus with diabetic neuropathy, with long-term current use of insulin UTI (urinary tract infection) none at present Past Family History Family History Mother Family history of diabetes mellitus Coronary heart disease [place] Father Coronary heart disease [place] Myocardial infarction Other No family history of adverse response to anesthesia Denies family history of Ovarian cancer Prostate cancer Breast cancer Colorectal cancer Past Surgical History Surgical History (Updated 12/12/22 @ 08:52 by Brunilda Méndez RN) History of bilateral cataract extraction History of cardiac cath 2010- stents x2 History of carpal tunnel release right History of colonoscopy Colonoscopy: 03/18/19: MAC sedation at [facility] History of lithotripsy x several History of tooth extraction Hx of surgical procedure Perineal abscess Hx of transurethral resection of prostate S/P cystoscopy with ureteral stent placement mulitple---last 04/16/20, 03/05/2020 08/23/2018. MAC. No issues. Social History Smoking Status: Former smoker tobacco type: cigarettes Smoking cigarettes per day: 20-30 a day Do You Dip or Chew Tobacco: No Smoking End Date: 10 yrs ago Hx Alcohol Use: No Hx Substance Use: No substance use type: does not use Lab Results Anesthesia Preop Results Results Anesthesia Widget: WBC 6.63 K/ul (4.8-10.8) 12/09/22 Hgb 14.3 g/dl (14.0-18.0) 12/09/22 Hct 45.3 % (42.0-52.0) 12/09/22 Plt 163 K/uL (130-400) 12/09/22 Na 140 mmol/L (136-145) 12/09/22 K 3.8 mmol/L (3.5-5.1) 12/09/22 Cl 103 mmol/L (98-107) 12/09/22 CO2 30 mmol/L (21-32) 12/09/22 BUN 25 mg/dl (6-23) H 12/09/22 Creat 2.00 mg/dl (0.6-1.4) H 12/09/22 Glucose Level 374 mg/dl (70-99(Fasting)) H* 12/09/22 POC Glucose 172 mg/dl (70-99) H 10/25/22 PT 10.5 Seconds (9.0-12.0) 10/21/22 INR 1.0 (0.9-1.1) 10/21/22 Urine Color Yellow 10/16/22 Urine Appearance Clear (Clear) 10/16/22 Urine pH 6.0 (4.5-7.5) 10/16/22 Urine Specific Clare 1.025 (1.000-1.030) 10/16/22 Urine Protein 1+ (Negative) H 10/16/22 Urine Glucose (UA) 3+ (Negative) H 10/16/22 Urine Ketones Negative (Negative) 10/16/22 Urine Blood Trace (Negative) H 10/16/22 Urine Nitrite Negative (Negative) 10/16/22 Urine Bilirubin Negative (Negative) 10/16/22 Urine Urobilinogen Negative (Negative) 10/16/22 Urine Leukocyte Esterase Negative (Negative) 10/16/22 Urine WBC (Auto) 1-5 /hpf (0-5) 10/16/22 Urine RBC (Auto) 0-4 /hpf (0-4) 10/16/22 Urine Hyaline Casts (Auto) 0 /lpf (0-5) 10/16/22 Urine Epithelial Cells (Auto) 20-30 /lpf (0-5) H 10/16/22 Urine Bacteria (Auto) Negative (Negative) 10/16/22 COVID-19 PCR NEGATIVE (Negative) 10/21/22 Testing Electrocardiogram Date: 10/21/22 NSR, rate 71 bpm Chest X-Ray Date: 10/21/22 *1view* Patient is rotated. Left basilar bulla is again noted. Blunting of the left costophrenic angle is chronic. Cardiomediastinal silhouette is stable. No evidence for pulmonary edema. Mild left basilar opacity favors atelectasis. There has been no significant change in appearance of the chest. IMPRESSION: No acute cardiopulmonary findings. No significant change in appearance of the chest. Echocardiogram Date: 09/09/22 EF 60-65% Normal LV wall motion Mild RVH Other Testing Chest, abdomen and pelvis CTA 10/16/22 CHEST: Thyroid: Imaged portions of the thyroid gland are normal in size and attenuation. Thoracic aorta: The thoracic aorta is normal in caliber and demonstrates standard 3-vessel arch anatomy. No dissection is seen. Pulmonary vasculature: The pulmonary trunk is normal in caliber. There are no filling defects identified in the main, lobar, or segmental pulmonary arteries to indicate pulmonary embolus. Heart: The heart is mildly enlarged and without pericardial effusion. The coronary arteries are densely calcified. Lungs and pleural spaces: There is mild emphysematous change. There is minimal dependent consolidation at the left lung base. This is increased from 03/07/2022. No pleural effusion is identified. The trachea and central airways are clear. Foci of scarring/atelectasis are seen at both lung bases. A left basilar bulla is unchanged from previous and measures up to 8 cm. Mediastinum: There is no mediastinal lymphadenopathy. Casi: There are calcified right hilar nodes. No hilar adenopathy is seen. Axillae: There is no axillary lymphadenopathy. Bony thorax: The skeletal structures are osteopenic. Degenerative change and kyphoscoliosis is noted in the thoracic spine. No lytic or blastic lesions are identified. Soft tissues: Gynecomastia is noted. ABDOMEN AND PELVIS: Liver: The unenhanced liver is normal in size, contour, and attenuation. There is no intrahepatic biliary ductal dilatation. Gallbladder: There are layering calcified gallstones with no CT evidence of acute cholecystitis. Spleen: Normal in size and attenuation. There are calcified splenic granulomas. Pancreas: The unenhanced pancreas is mildly atrophic and grossly unremarkable. Adrenal glands: A 4.5 cm right adrenal lesion contains macroscopic fat. This has modestly increased in size as compared to 2020. The left adrenal gland is normal in appearance. Kidneys: The unenhanced kidneys demonstrate cortical atrophy and are without hydronephrosis. A 4 mm nonobstructing calculus is seen on the left. A punctate nonobstructing calculus is seen on the right. No ureteral stone is identified. Abdominal vasculature: The abdominal aorta is normal in course and caliber. Bowel: There is moderate colonic fecal retention. No bowel obstruction is seen. The appendix is normal as visualized. Peritoneum: There is no intraperitoneal free air or abdominal ascites. There is a fat-containing umbilical hernia. Pelvic viscera: The bladder, prostate, and seminal vesicles are normal as v isualized. Skeletal structures: The skeletal structures are osteopenic. There is mild lumbosacral spondylosis. Degenerative change is noted in the sacroiliac joints. No lytic or blastic lesions are seen. IMPRESSION: 1. There is no evidence of pulmonary embolus in the main, lobar, or segmental pulmonary arteries. 2. Cardiomegaly and mild emphysema. 3. There is minimal dependent consolidation at the left lung base which is new from prior studies. This could represent atelectasis versus a mild pneumonitis and clinical correlation will be required. 4. No acute infectious or inflammatory findings are identified in the abdomen or pelvis. 5. Moderate constipation. 6. Bilateral nephrolithiasis. 7. Cholelithiasis. 8. A 4.5 cm right adrenal lesion contains a focus of macroscopic fat and likely represents a myelolipoma. This has modestly increased in size as compared to studies dating back to 2010. 9. Additional findings as above. Lung CT 03/07/22 Thoracic aorta: The thoracic aorta is normal in course and caliber, noting standard 3 vessel arch anatomy. Heart: The heart is top normal in size and without pericardial effusion. There are coronary artery calcifications. Lungs and pleural spaces: Evaluation of the lung parenchyma is modestly degraded by motion artifact. There is mild emphysema. A bulla is again seen at the left lung base. There is no lobar consolidation or pleural effusion. Linear scarring/atelectasis is seen in the left upper lobe appear the trachea and central airways are clear. There are scattered calcified granulomas. No concerning pulmonary lesion is identified. Casi: There are calcified right hilar lymph nodes. Note that the casi are not well assessed without IV contrast. Upper abdomen: The liver appears steatotic. There are calcified splenic granulomas. A 4.4 cm right adrenal nodule containing macroscopic fat is similar to previous. Skeletal structures: Degenerative change and mild hyperkyphosis is noted in the thoracic spine. There are no lytic or blastic osseous lesions. IMPRESSION: 1. Mild emphysema. 2. No concerning pulmonary lesion is identified. 3. Additional findings as above.
[~2022-12-15 08:53] MED LIST changes: -KETAMINE HCL INJ 50 MG/ML 10 ML VIAL IV ONE; +LR 15ML/HR IV SCH; -SUCCINYLCHOLINE CHLORIDE 20 MG/ML 10 ML VIAL IV ONE
[2022-12-15] MEDS ORDERED: ATROPINE SULFATE 0.1 MG/ML 10ML SYR IV PRN (09:37)
[2022-12-15] MEDS ORDERED: ePHEDrine sulfate 50 MG/ML AMP IV PRN (09:37)
[2022-12-15] MEDS ORDERED: LABETALOL HCL IV 5 MG/ML 20ML IV PRN (09:37)
[2022-12-15] MEDS ORDERED: ONDANSETRON INJ 2 MG/ML 2 ML VIAL IV PRN ×3 (09:37→15:12)
[2022-12-15] MEDS ORDERED: ACETAMINOPHEN 1,000 MG/100 ML VIAL IV STA (09:37)
[2022-12-15] MEDS ORDERED: HYDROmorphone INJ 1 MG/ML SYRINGE IV PRN (09:37)
[2022-12-15] MEDS ORDERED: ALBUTEROL 0.083% NEBU SOLN 3 ML VIAL INH PRN (09:37)
[2022-12-15] MEDS ORDERED: BUPIVACAINE 0.5 % 5 MG/1 ML PF 10ML VIAL ONE (09:55)
[2022-12-15 10:09] LABS: Calcium 9.3 mg/dl (8.6-10.3); Creatinine Clr Calc Pharmacy 47.5 ml/min; Est GFR (African American) 38.1 ml/min; Est GFR (Non-African American) 32.8 ml/min; Potassium 3.5 mmol/L (3.5-5.1)
--- NOTE | 2022-12-15 10:15 | History & Physical Report ---
Date of Service December 15, 2022 Assessment & Plan (1) Perineal abscess: Plan: Our plan is to proceed with examine under anesthesia fistulotomy possible seton Risk and complication of been explained to the patient and he would like to proceed accordingly The patient was on Plavix and he stopped taking it a week ago (there was a misunderstanding with [facility] anesthesia stating that he took Plavix this morning but his confirmed that he has not taken any) The chest x-ray showed a bulla in the left chestthat apparently is going to have surgery done in [place] but this has been present at least 6 years All question answered History of Present Illness Chief Complaint: Pain in the perirectal area the nonhealing wound Primary Care Provider: Salas Valente, DO This gentleman has been seen in wound clinic for nonhealing wound right buttocks I saw him within the last few weeks where the wound appeared to be very superficial indurated there was no evidence of any extension at that time under local tries to excise this localized induration that was not healing and was able to see that the patient had an extension in the fistulous tracks towards the anal area which with a Q-tip we were able to probe but did not seem to communicate and most approximately 3 cm from the anal verge and is here for u nroofing of the area and examine under anesthesia Allergies Allergy/AdvReac Type Severity Reaction Status Date / Time No Known Allergies Allergy Verified 12/12/22 08:33 Home Medications Medication Instructions Recorded Confirmed Type cholecalciferol (vitamin D3) 25 1,000 unit PO BID 08/22/18 12/15/22 History mcg (1,000 unit) tablet (Vitamin D3) acetaminophen 325 mg tablet 650 mg PO TID PRN Pain 04/27/20 12/12/22 History aspirin 81 mg tablet,delayed 81 mg PO QPM 06/08/20 12/15/22 History release albuterol sulfate 0.63 mg/3 mL 0.63 mg continuous nebulization 03/27/21 12/15/22 History solution for nebulization QID PRN Shortness Of Breath Or Wheezing metoprolol tartrate 100 mg tablet 100 mg PO BID #180 tabs 12/17/21 12/15/22 Rx (Lopressor) bupropion HCl 150 mg tablet,12 hr 150 mg PO BID 90 days #180 ea 03/23/22 3 Rx sustained-release clopidogrel 75 mg tablet 75 mg PO QAM #90 tabs 04/04/22 12/15/22 Rx ipratropium 0.5 mg-albuterol 3 mg 3 ml inhalation Q4 PRN wheezing 06/07/22 12/15/22 Rx (2.5 mg base)/3 mL nebulization #360 mL soln ammonium lactate 5 % lotion 1 g EXT BID #5 grams 09/14/22 12/15/22 Rx (Lac-Hydrin Five) polyethylene glycol 3350 17 gram 17 g PO TID PRN constipation #30 ea 09/14/22 12/12/22 Rx oral powder packet (Miralax) docusate sodium 100 mg capsule 100 mg PO BID 09/22/22 12/15/22 History ondansetron 4 mg disintegrating 4 mg PO Q4H PRN Nausea 09/22/22 12/12/22 History tablet insulin aspart U-100 100 unit/mL 16 unit (0.16 mL) subcut TID #10 mL 09/29/22 12/15/22 Rx subcutaneous solution (Novolog U-100 Insulin aspart) nystatin 100,000 unit/gram topical 1 applic EXT DAILY PRN infection 10/16/22 12/15/22 History powder (Nystop) atorvastatin 40 mg tablet 40 mg PO QAM #30 tabs 10/25/22 12/12/22 Rx flash glucose sensor (FreeStyle 12/05/22 12/06/22 History Nidia 2 Sensor kit) fluticasone 250 mcg-salmeterol 50 1 ea inhalation QAM 12/05/22 12/15/22 History mcg/dose blistr powdr for inhalation (Advair Diskus) insulin degludec 200 unit/mL (3 44 unit subcut HS 12/05/22 12/15/22 History mL) subcutaneous pen (Tresiba FlexTouch U-200 insulin) finasteride 5 mg tablet (Proscar) 5 mg PO QAM 12/12/22 12/15/22 History furosemide 20 mg tablet 40 mg PO QAM 12/12/22 12/15/22 History gabapentin 400 mg capsule 400 mg PO BID 12/12/22 12/15/22 History Past Med/Surg History Medical History (Updated 12/12/22 @ 10:27 by Cayla Peralta PA-C) Acute kidney injury superimposed on CKD follows with Dr. Man saw him last week CAD (coronary artery disease) coronary artery disease with prior [place] complicated by V-fib arrest. 2 drug- eluting stents placed at that time (2010) and mild residual nonocclusive disease. follows with Dr. 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 to CTA report 09/2022 Lung abnormality "has a hole in bottom left lung" to be scheduling surgery within the month per pt's , 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 Morbid obesity with BMI of 40.0-44.9, adult Nephrolithiasis Admitted to [facility] for 7 mm L ureteral stone causing hydronephrosis/EDILMA Neuropathy feet On anticoagulant therapy plavix daily On home oxygen therapy 2L N/C prn Physical debility uses wheelchair > can walk a few steps SBO (small bowel obstruction) hx and resolved no surgery Sleep apnea no device Uncontrolled type 2 diabetes mellitus with diabetic neuropathy, with long-term current use of insulin UTI (urinary tract infection) none at present Surgical History (Updated 12/12/22 @ 08:52 by Brunilda Méndez, REX) History of bilateral cataract extraction History of cardiac cath 2011- stents x2 History of carpal tunnel release right History of colonoscopy Colonoscopy: 03/18/19: MAC sedation at [facility] History of lithotripsy x several History of tooth extraction Hx of surgical procedure Perineal abscess Hx of transurethral resection of prostate S/P cystoscopy with ureteral stent placement mulitple---last 04/16/20, 03/05/2020 08/23/2018. MAC. No issues. Family History Mother Family history of diabetes mellitus Coronary heart disease [place] Father Coronary heart disease [place] Myocardial infarction Other No family history of adverse response to anesthesia Denies family history of Ovarian cancer Prostate cancer Breast cancer Colorectal cancer Social History Smoking Status: Former smoker Tobacco Type: Cigarettes Age Started Using Tobacco: 16; Age Quit Using Tobacco: 62; Cigarettes Per Day: 20-30 a day; Smoking End Date: 10 yrs ago; Second Hand Exposure: No; Do You Dip or Chew Tobacco: No; Tobacco Cessation Education Requested by Patient: No Hx Alcohol Use: No Hx Substance Use: No Preferred Language: Slovak Communication Ability: Effective Visual Impairment: No Limitations Hearing Ability: Normal Diamond Cutter Required: No Beliefs That Will Affect Care: None marital status: Current Living Situation: Spouse current occupational status: retired How many Children do You have: 3 Other Information That Helps Us Care for You: No Feels Safe at Home: Yes Safety Concerns: Feels Safe At This Time Childhood Exposure to Second-Hand Smoke: Yes caffeine: Yes (Tea and soda ) Dental Care, Regularly: Yes Physical Activity Frequency: Does not Exercise Seatbelt Use: sometimes Sunscreen Use: No Assistive Devices: Cane, Denture - Upper, Oxygen - Continuous, Walker and Wheelchair Physical Exam Physical Exam: Alert coherent no distress significant other here is bedside Head is normocephalic no scleral icterus Carotid without any bruit No cervical lymphadenopathy trachea midline Lungs no audible wheezing or rhonchi Heart regular rate no murmurs Abdomen benign Left buttock area previous excised tissue free of any inflammation Results & Data Results & Data Laboratory Results Path report on the excised tissue and left buttock area chronic inflammation no evidence of carcinoma PG Care Time/CCT Total # of Minutes Spent Total Time Spent with Patient: Total time spent is greater than 50% in coordination of care (as documented) at patient's floor/unit and/or counseling patient: Coding Level of Care Code 52879 INT INP/OBS CARE MIN Diagnoses Perineal abscess L02.215
[2022-12-15] MEDS ORDERED: MIDAZOLAM HCL 1 MG/ML 2ML VIAL ONE (12:25)
[2022-12-15] MEDS ORDERED: fentaNYL citrate PF 100 MCG/2 ML VIAL ONE (12:25)
[2022-12-15] MEDS ORDERED: PROPOFOL IV EMULSION 10 MG/ML 20 ML VIAL IV ONE (12:25)
[2022-12-15] MEDS ORDERED: KETAMINE 50 MG/5 ML SYRINGE ONE (12:27)
[2022-12-15] MEDS ORDERED: BUPIVACAINE/EPINEPHRINE 0.5% MPF 1:200,000 30 ML VIAL ONE (12:31)
[2022-12-15] MEDS ORDERED: ePHEDrine sulfate 50 MG/ML SYR ONE (13:28)
[2022-12-15] MEDS ORDERED: PHENYLEPHRINE 100MCG/ML 5ML SYR ONE (13:28)
--- NOTE | 2022-12-15 13:30 | Post Operative Brief Note ---
Immediate Post Op Note v1 Date of Surgery December 15, 2022 Pre & Post Diagnosis Operation Date: 12/15/22 11:10 Pre-Op Diagnosis: Non Healing Open Wound Buttock-Left Post-Op Diagnosis: Non Healing Open Wound Buttock-Left I identified the patient and participated in the time-out.: Yes Procedure Operation Date: 12/15/22 11:10 Actual Procedures p Rectal Exam Under Anesthesia, Fistulotomy(Not Applicable) - Demetrius Regan MD, FACS Surgeon Demetrius Regan MD, FACS [employer] Ronnie Elizabeth DO Estimated Blood Loss 10 Findings Consistent with Post-Op Diagnosis Drains Topher Drain
[2022-12-15] MEDS ORDERED: MoRPHine SULFATE 4 MG/ML 1 ML CARP\\VIAL IV PRN ×2 (13:32→15:12)
[2022-12-15] MEDS ORDERED: oxyCODONE/ACETAMINOPHEN 5mg/325mg TAB PO PRN ×2 (13:32)
[2022-12-15] MEDS ORDERED: MoRPHine SULFATE 2 MG/ML CARP IV PRN ×2 (13:32→15:12)
[2022-12-15] MEDS ORDERED: SODIUM CHLORIDE 0.9% 1000ML 1,000 ML IV SCH (13:45)
--- NOTE | 2022-12-15 13:58 | Operative Report ---
PG Post Operative Report Pre & Post Diagnosis Operation Date: 12/15/22 11:10 Pre-Op Diagnosis: Non Healing Open Wound Buttock-Left Post-Op Diagnosis: Non Healing Open Wound Buttock-Left I identified the patient and participated in the time-out.: Yes Procedure Operation Date: 12/15/22 11:10 Actual Procedures p Rectal Exam Under Anesthesia, Fistulotomy(Not Applicable) - Demetrius Regan MD, FACS Biopsy of fistulous tract Payroll And Benefits Analyst Padmaja RESTREPO Patient was brought into the operating room theater sat at the side of the bed anesthesia gave a spinal after is completed the patient was placed in the prone position padding appropriate areas the perianal area and buttock was shaved and properly draped a timeout was had the patient been identified at this point we placed an anoscope after dilating the rectal patient has significant mount of venous plexus from internal hemorrhoids there was no evidence of any gross fistula tract the mucosa on the anal area was viable no mass effect no evidence of chronic inflammation at this point we used checked up area within the fistula tract that we had a seen in the office was to the right and left buttock area the opening was about a centimeter in size and the depth of this there is some fibrous tissue there was no evidence of any purulent drainage at this time we then injected some hydroperoxide through the tract to see if it were visualized is in the anal canal which we were unsuccessful I then used the probe to further inspect the tract that in the office would seem to be fistula heading towards the anal area and again we did not see any specific extension into the anal canal in fact it was not even close to the sphincters. We had unroofed this area and is chronic inflammation but is not as pronounced as it was around the initial opening in the left buttock this point once we opened this up we probed the area again and found that fistulous tract was going laterally away to the previous tract that was going towards the anal area and this extended for approximately 6 cm so we unroofed this area again with found chronic inflammation in this area there was no purulent drainage appreciated once we had unroofed the part of this tract we made a counterincision more laterally to avoid opening the whole tract and communicated the 2 areas. We placed 1/4 inch plain [place] coming through from the larger pocket that was medial to the opening that we made more laterally attached to the skin with 4-0 nylon original opening that we packed was quarter inch plain gauze the more medial aspect of the fistulous that we had opened towards the anal canal we closed it with interrupted 4-0 nylon to try to bring the skin together so with the hope that we may be able VAC system throughout the system the patient tolerated procedure well estimated blood loss 15 cc we had excised the part of chronic inflammation of fistulous track and sent for permanent section even though we had biopsied this in the office approximately a week or so ago and showed chronic inflammation 4 x 4 dressing ABD applied the procedure was tolerated well by the patient given the extent of reopening we will keep patient overnight addendum I spoke with his Helen at [phone] and told of the findings and our plan to keep the patient overnight with the anticipation of placing a VAC system on him in the morning and In evaluating this particular situation I feel that the primary diagnosis or most likely turner off to be hydradenitis suppurativa since the patient did have similar sinus tracts in the axilla was present about the case and helped for evaluation and exposure Surgeon Demetrius Regan MD, FACS Payroll And Benefits Analyst Ronnie Elizabeth DO Estimated Blood Loss 10 Findings Consistent with Post-Op Diagnosis Specimens Biopsy of the fistulous Drains Quarter-inch [place] through a stab wound in the depth of the wound Indications Nonhealing wound in the left buttock area suspicious for fistula in ano Description of Procedure merda I attest to the content of the Intraoperative Record and any orders documented therein. Any exceptions are noted below.
[2022-12-15] MEDS ORDERED: ACETAMINOPHEN 1000 MG/100 ML IV IV ONE (14:01)
--- NOTE | 2022-12-15 14:11 | Anesthesiology Progress Note ---
Date of Service December 15, 2022 Anesthesia Post Procedure Vital Signs Vital Signs: Temp Pulse Pulse Resp BP Pulse Ox O2 Del Method 12/15/22 14:00 54 L 12 120/59 L 98 Nasal Cannula 12/15/22 13:50 56 L 12 114/56 L 99 Nasal Cannula 12/15/22 13:40 52 L 16 132/59 L 98 Nasal Cannula 12/15/22 13:38 36 C L 57 L 20 77/51 L 96 Nasal Cannula 12/15/22 10:04 Room Air 12/15/22 10:04 36.7 C 66 20 163/90 H 95 Room Air O2 Flow Rate 12/15/22 14:00 3 12/15/22 13:50 3 12/15/22 13:40 3 12/15/22 13:38 3 12/15/22 10:04 12/15/22 10:04 Pain Intensity Bilateral Head: Pain Intensity: 8 Transfer of Care Handoff Completed per policy Notes Mental Status: alert / awake / arousable Patient Amnestic to Procedure: Yes Nausea / Vomiting: adequately controlled Pain: adequately controlled Airway Patency, RR, SpO2: stable & adequate BP & HR: stable & adequate Hydration State: stable & adequate Neuraxial Anesthesia: was administered and sensory block is resolving Anesthetic Complications: no major complications apparent and Pt Satisfied with anesthetic care
[2022-12-15] MEDS ORDERED: CARBOHYDRATES FOR HYPOGLYCEMIA PO PRN (15:12)
[2022-12-15] MEDS ORDERED: NON-FORMULARY MEDICATION (Albuterol Sulfate 0.63 mg/3 mL solution for nebulization) continuous nebulization PRN (15:12)
[2022-12-15] MEDS ORDERED: GLUCOSE 40% GEL 15 GM TUBE PO PRN (15:12)
[2022-12-15] MEDS ORDERED: PHARMACY GLYCEMIC MGMT CONSULT PRN (15:12)
[2022-12-15] MEDS ORDERED: ACETAMINOPHEN 325 MG TAB PO PRN (15:12)
[2022-12-15] MEDS ORDERED: NYSTATIN POWDER 15GM BTL EXT PRN (15:12)
[2022-12-15] MEDS ORDERED: ALBUT/IPRATROP 3MG/0.5MG NEB 3 ML VIAL INH PRN (15:12)
[2022-12-15] MEDS ORDERED: DEXTROSE 50% 50 ML SYRINGE IV PRN (15:12)
[2022-12-15] MEDS ORDERED: GLUCAGON FOR INJ 1 MG VIAL SQ PRN (15:12)
[2022-12-15] MEDS ORDERED: GLUCOSE 10 TAB/TUBE PO PRN (15:12)
[2022-12-15] MEDS ORDERED: oxyCODONE HCL IR 5 MG TAB (IMMEDIATE RELEASE) PO PRN (15:12)
[2022-12-15 16:34] LABS: Estimated Average Glucose 189 mg/dl; Hemoglobin A1C 8.2 % (4.5-5.6)
[2022-12-15] MEDS: INSULIN ASPART PER UNIT CHARGE SC SCH ×2 (17:35→20:53)
[2022-12-15] MEDS: oxyCODONE HCL IR 5 MG TAB (IMMEDIATE RELEASE) PO PRN (20:19)
[2022-12-15] MEDS: GABAPENTIN 400 MG CAP PO SCH (20:20)
[2022-12-15] MEDS: buPROPion SR 150 MG TABCR PO SCH (20:21)
[2022-12-15] MEDS: METOPROLOL TARTRATE 100 MG TAB PO SCH (20:21)
[2022-12-15] MEDS ORDERED: LANTUS PER UNIT CHARGE SC SCH ×2 (21:00)
[2022-12-16] MEDS: oxyCODONE HCL IR 5 MG TAB (IMMEDIATE RELEASE) PO PRN ×2 (00:43→06:35)
[2022-12-16] MEDS: METOPROLOL TARTRATE 100 MG TAB PO SCH (08:11)
[2022-12-16] MEDS: GABAPENTIN 400 MG CAP PO SCH (08:11)
[2022-12-16] MEDS: buPROPion SR 150 MG TABCR PO SCH (08:11)
[2022-12-16] MEDS: INSULIN ASPART PER UNIT CHARGE SC SCH ×3 (08:16→17:32)
[2022-12-16] MEDS ORDERED: FLUTICASONE/VILANTEROL 100/25MCG 14 PUFFS/INHALER INH SCH (09:00)
[2022-12-16] MEDS ORDERED: ATORVASTATIN 40 MG TAB PO SCH (09:00)
[2022-12-16] MEDS ORDERED: FINASTERIDE 5 MG TAB PO SCH (09:00)
--- NOTE | 2022-12-16 09:47 | Surgery Progress Note ---
Date of Service December 16, 2022 Assessment & Plan (1) Buttock wound: Plan: POD#1 explored aryan-anal fistulous tract Intraop confirmed wound is not a fistula extending to the rectum and more likely stemming from history of hidradenitis evaluated wound in conjunction with wound care today. stephen drain and packing removed. wound vac was placed without issues will hope to discharge to home today pending wound vac approval and home health care set up f/u in wound care center this upcoming monday and dr. linn later next wk May resume plavix on monday12/18/22 If remains here tomorrow, [facility] surgery covering Admission and Anticipated Discharge Date Admission Date: December 15, 2022 Subjective Patient is doing fairly well. Some pain at surgical site, but well controlled. No other complaints. Physical Exam Physical Exam: awake/alert, no distress Respiratory: normal respiratory effort Gastrointestinal (Abdomen): buttocks wound c/d/i. packing removed with some bloody drainage noted. stephen drain removed. some sutures remain in place Results & Data Vital Signs (Past 12 Hours) Vital Signs Temp Pulse Pulse Resp BP BP Pulse Ox 12/16/22 07:49 36.8 C 61 18 123/76 99 12/16/22 03:21 36.7 C 61 18 130/78 98 12/15/22 22:47 36.8 C 61 18 147/77 H 98 O2 Del Method O2 Flow Rate 12/16/22 07:49 Room Air 12/16/22 03:21 Nasal Cannula 4 12/15/22 22:47 Nasal Cannula 4 PG Care Time/CCT Total # of Minutes Spent Total Time Spent with Patient: Total time spent is greater than 50% in coordination of care (as documented) at patient's floor/unit and/or counseling patient: Coding Level of Care Code 39406 Post Operative Follow-Up Diagnoses Buttock wound S31.809A
--- NOTE | 2022-12-16 11:24 | Pharmacy Report ---
Pharmacy Glycemic Short Note 2 - Date of Service December 16, 2022 - Glycemic Short BSG Results (Last 24 hours): 12/15/22 12/15/22 12/15/22 13:41 16:52 20:30 POC Glucose 147 H 160 H 154 H 12/16/22 08:08 POC Glucose 159 H OUTPATIENT ANTIDIABETIC REGIMEN: * Tresiba U-200 44 units SC HS * Novolog 16 units SC AC * HbA1c: 8.2% (12/15/22) ASSESSMENT: * 72 yo M admitted on 12/15/22 following a fistulotomy. Pharmacy has been consulted to assist with inpatient glycemic management. Patient is an uncontrolled Type 2 diabetic as an outpatient. Please refer to outpatient regimen and most recent HbA1c above. * BSGs yesterday were: [phone] mg/dL. No stressors outside of surgery itself. Ordered and tolerating a T2DM diet. * Received 10 units basal + 9 units bolus yesterday. * Fasting BSG 159 mg/dL this AM. Will decrease upper limit of basal scale for this evening to provider 10-20 units. No changes to bolus regimen. PLAN FOR INPATIENT GLYCEMIC CONTROL: * Basal insulin * Lantus 10-20 units SC HS (see eMAR for more details) * Bolus insulin * NovoLog per scale ACHS or Q6hrs while NPO * Goal Range: Low 110 mg/dL - High 140 mg/dL * Correction Factor: 20 mg/dL/unit * Nutritional / Prandial insulin per carb ratio of 1 unit per 7 grams CHO consumed
--- NOTE | 2022-12-26 15:18 | Discharge Summary ---
Date of Service December 16, 2022 Admission HPI Per Admitting Provider This gentleman has been seen in wound clinic for nonhealing wound right buttocks I saw him within the last few weeks where the wound appeared to be very superficial indurated there was no evidence of any extension at that time under local tries to excise this localized induration that was not healing and was able to see that the patient had an extension in the fistulous tracks towards the anal area which with a Q-tip we were able to probe but did not seem to communicate and most approximately 3 cm from the anal verge and is here for unroofing of the area and examine under anesthesia Principal Diagnosis buttock wound Discharge Exam awake/alert, no distress Respiratory normal respiratory effort Gastrointestinal (Abdomen) buttocks wound packing removed. wound bed clean. small amount of bloody drainage. stephen and some sutures removed Discharge Data Allergies Allergy/AdvReac Type Severity Reaction Status Date / Time No Known Allergies Allergy Verified 12/19/22 14:28 Procedures Performed Operation Date: 12/15/22 11:10 Actual Procedures p Rectal Exam Under Anesthesia, Fistulotomy(Not Applicable) - Demetrius Regan MD, FACS Hospital Course (1) Buttock wound: This is a 72yM who presented to the [facility] on [facility]22 for elective surgical intervention of a non healing buttocks wound with Dr. Regan. The patient tolerated the procedure well, see op note for full details. The patient recovered in the PACU and was transferred to the med/surg unit in stable condition. Wound was packed with plain gauze, a stephen drain in place, with some sutures. He was given a diet and pain controlled with prn po medications. On POD#1 the wound was evaluated in conjunction with the wound care team. [place] drain, the packing, and some sutures were removed. It was deemed stable for a wound vac which was placed without issues. Case management was following patient and set him up with home health care and a follow up appointment in the wound care center. Vac was approved for home. On 12/16 the patient was deemed stable for discharge with wound vac in place and close follow up in the wound center. Total Time Total Time Spent Total Time Spent (In Minutes): 15 Discharge Plan Discharge Items Patient Disposition: Home - Home Health Services Reason For Visit: Non Healing Open Wound Buttock Discharge Diagnosis: rectal exam under anesthesia exploration of buttocks wound Activity: Per Instructions section Lifting: No more than 25 pounds Bathing Comment: keep incision dry; may take sponge baths Exercise/Sports: Wait until after follow-up appointment Driving/Machine Use: no driving until cleared by surgeon Non-emergency contact: Surgeon Call non-emergency contact if: you have any medication questions, your symptoms worsen, you have a fever, your temperature is above 101.5, your wound has increased redness, your wound has increased drainage and your wound pain has increased Follow-up/Referrals: Demetrius Regan MD, FACS [Surgeon] - 12/21/22 10:30 am (Please call to schedule follow up in clinic within 1 week) Salas Valente, [Primary Care Provider] - Diet: Carb Consistent or DM2 Addtl Attending Provider Instructions: You may resume your Plavix on 12/18/22 Do not take plain Tylenol while you are taking the narcotic Percocet for pain. they both contain Acetaminophen and you should not exceed >3grams of Acetaminophen within a 24 hour time period -If you do not require the narcotic for pain you may take plain tylenol as previously prescribed to you Wound Care Clinic: You have follow up scheduled with them this upcoming Tuesday 12/19 at 2:30pm. [address], [address] [place] [address] #[phone] You have a wound vac in place. Continue this dressing and it will be changed in the wound care clinic this upcoming Monday12/19/22 at 2:30pm and thereafter by home health care -To left buttocks wounds: change wound vac every monday/monday/monday. irrigate with saline. apply skin prep to periphery. allow to dry. cover sutures with adaptic. apply drape to periphery. Fill wound with black foam, ensuring tunnel is filled (there are 2 pieces and pushed into tunnel from both wounds). Apply bolster over tunnel and apply trac pad. Set VAC to -125mmhg suction continuous mode. -Encourage walking and turning. - If VAC fails, remove all 4 pieces of black foam. irrigate wound with saline. fill with aquacel Ag and secure with optifoam. Change daily and as needed for drainage covering >50% of dressing. Pending Studies at Discharge: No Stand-Alone Forms: [facility], Pain - Opioid Pain Management, Smoking Cessation Medications and DC Order Prescriptions: New oxycodone-acetaminophen [Percocet] 5-325 mg tablet 1 - 2 tab PO .q4-6h PRN (Reason: pain, for initial therapy, max 6 tabs per day) Qty: 15 0RF Continued metoprolol tartrate [Lopressor] 100 mg tablet 100 mg PO BID Qty: 180 3RF bupropion HCl 150 mg tablet sustained-release 12 hr 150 mg PO BID 90 Days Qty: 180 3RF ipratropium-albuterol 0.5 mg-3 mg(2.5 mg base)/3 mL solution for nebulization 3 ml inhalation Q4 PRN (Reason: wheezing) Qty: 360 11RF Rx Instructions: DX: J44.9-COPD clopidogrel 75 mg tablet 75 mg PO QAM Qty: 90 3RF ondansetron 4 mg tablet,disintegrating 4 mg PO Q4H PRN (Reason: Nausea) docusate sodium 100 mg capsule 100 mg PO BID fluticasone propion-salmeterol [Advair Diskus] 250-50 mcg/dose blister with device 1 ea inhalation QAM insulin degludec [Tresiba FlexTouch U-200] 200 unit/mL (3 mL) insulin pen 44 unit subcut HS (DME) FreeStyle Nidia 2 Sensor Kit See Rx Instructions .Route Rx Instructions: As directed insulin aspart U-100 [Novolog U-100 Insulin aspart] 100 unit/mL solution 16 unit subcut TID Qty: 10 2RF cholecalciferol (vitamin D3) [Vitamin D3] 1,000 unit Tablet 1,000 unit PO BID aspirin 81 mg Tablet,Delayed Release (Dr/Ec) 81 mg PO QPM polyethylene glycol 3350 [Miralax] 17 gram Powder In Packet 17 g PO TID PRN (Reason: constipation) Qty: 30 0RF Lac-Hydrin Five 5 % Lotion 1 g EXT BID Qty: 5 0RF nystatin [Nystop] 100,000 unit/gram powder 1 applic EXT DAILY PRN (Reason: infection) atorvastatin 40 mg Tablet 40 mg PO QAM Qty: 30 0RF gabapentin 400 mg capsule 400 mg PO BID furosemide 20 mg tablet 40 mg PO QAM finasteride [Proscar] 5 mg tablet 5 mg PO QAM albuterol sulfate 0.63 mg/3 mL solution for nebulization 0.63 mg continuous nebulization QID PRN (Reason: Shortness Of Breath Or Wheezing) Discontinued acetaminophen 325 mg tablet 650 mg PO TID PRN (Reason: Pain) Krames/Other Patient Handouts: Negative Pressure Wound Therapy Admission Data Admit Date/Time: 12/15/22 13:46 Attending Provider: Demetrius Regan Admit Provider: Demetrius Regan Primary Care Provider: Salas Valente Other Interventions: Discharge Summary Assessment (RN) Last Done: 12/16/22 17:08 Coding Level of Care Code 58614 IN/OBS DISCH 30 MIN/LESS Diagnoses Buttock wound S31.809A
== END 2022-12-16 18:22 | disposition home health service (06) ==
LOC: ASU 08:53 → 3E 08:53

== ENCOUNTER 2023-12-03 00:30 | Inpatient (IN) ==
[2023-12-03] MEDS ORDERED: VANCOMYCIN CONSULT ACTIVE PRN (01:08)
[2023-12-03 01:09] LABS: Hematocrit (blood only) 52.7 % (42.0-52.0); Hemoglobin 16.5 g/dl (14.0-18.0); Mean Corpuscular Hemoglobin 29.9 pg (25.0-34.0); Mean Corpuscular Hgb Conc 31.3 g/dL (32.0-36.0); Mean Corpuscular Volume 95.6 fL (80.0-100.0); Mean Platelet Volume 9.6 fL (9.4-12.4); Nucleated RBC # (auto) 0.02 K/uL (0.00-0.12); Nucleated RBC % (auto) 0.1 %; Platelet Count 181 K/uL (130-400); RDW Coefficient of Variation 14.8 % (11.5-14.5); Red Blood Count 5.51 M/uL (4.70-6.10)
[2023-12-03 01:20] LABS: Albumin Level 3.8 gm/dl (3.4-5.0); BUN Creatinine Ratio 11.8 (10-20); Bilirubin,Total 1.3 mg/dl (0.2-1.0); Calcium 9.4 mg/dl (8.6-10.3); Creatinine Clr Calc Pharmacy 40.8 ml/min; Est GFR (African American) 32.3 ml/min; Est GFR (Non-African American) 27.8 ml/min; Globulin 3.7 gm/dl (2.5-4.0); Magnesium 1.6 mg/dl (1.7-2.4); Potassium 4.2 mmol/L (3.5-5.1); Total Protein 7.5 gm/dl (6.0-8.3)
[2023-12-03 01:26] LABS: Troponin I High Sensitivity 28.8 pg/ml (0-20)
[2023-12-03 01:32] LABS: Basophils # (auto) 0.08 K/uL (0.00-0.20); Basophils % (auto) 0.4 %; Eosinophils # (auto) 0.03 K/uL (0.00-0.50); Eosinophils % (auto) 0.2 %; Immature Granulocytes # (auto) 0.17 K/uL (0.01-0.20); Immature Granulocytes % (auto) 0.9 %; Lymphocytes % (auto) 3.8 %; Monocytes # (auto) 0.74 K/uL (0.11-0.59); Neutrophils # (auto) 16.58 K/uL (1.40-6.50); Neutrophils % (auto) 90.7 %
[2023-12-03 01:33] LABS: Base Excess ABG 1.5 mEq/L (-9-1.8); HCO3 ABG 26 mmol/L (19-24); Oxygen Saturation ABG 98.3 % (90-95); PCO2 ABG 39 mmHg (35-46); PO2 ABG 100 mmHg (80-95); pH ABG 7.43 (7.35-7.45)
[2023-12-03 01:34] LABS: Allen Test Pos (Pos)
[2023-12-03] MEDS: PIPERACILLIN/TAZOBACTAM 4.5 GM/100 ML BAG IV ONE (01:43)
--- NOTE | 2023-12-03 02:14 | Emergency Department Note ---
History of Present Illness General Chief complaint: Fever Stated complaint: Weakness, Fever, L Foot Pain Time Seen by Provider: 12/03/23 00:48 History of Present Illness Maximum Pain Intensity: 10 This is a 73-year-old male presenting to the emergency department with increased weakness and fever symptoms. Patient is accompanied by family who assist in the history. The patient has had some increased confusion and difficulty ambulating. The patient is also complaining of left foot pain for over a month. Patient has extensive past medical disease including chronic buttocks wound, chronic respiratory failure, chronic kidney disease, CAD, and diabetes. The patient has required increased oxygen use at home. He rates his discomfort a 06/06. Home Medications Medication Instructions Recorded Confirmed Type cholecalciferol (vitamin D3) 25 1,000 unit PO BID 08/22/18 12/03/23 History mcg (1,000 unit) tablet (Vitamin D3) aspirin 81 mg tablet,delayed 81 mg PO QPM 06/08/20 12/03/23 History release ammonium lactate 5 % lotion 1 g EXT BID #5 grams 09/14/22 12/03/23 Rx (Lac-Hydrin Five) docusate sodium 100 mg capsule 100 mg PO BID 09/22/22 12/03/23 History nystatin 100,000 unit/gram topical 1 applic EXT DAILY PRN infection 10/16/22 12/03/23 History powder (Nystop) flash glucose sensor (FreeStyle 12/05/22 11/28/23 History Nidia 2 Sensor kit) fluticasone 250 mcg-salmeterol 50 1 ea inhalation QAM 12/05/22 12/03/23 History mcg/dose blistr powdr for inhalation (Advair Diskus) furosemide 20 mg tablet 40 mg PO QAM 12/12/22 12/03/23 History nystatin 100,000 unit/gram topical 1 applic topical TID PRN fungal 02/24/23 12/03/23 Rx cream rash #30 grams metoprolol tartrate 100 mg tablet 100 mg PO BID #180 tabs 03/21/23 12/03/23 Rx (Lopressor) atorvastatin 40 mg tablet 40 mg PO QAM #90 tabs 04/07/23 12/03/23 Rx insulin degludec 200 unit/mL (3 60 unit subcut HS 06/01/23 12/03/23 History mL) subcutaneous pen (Tresiba FlexTouch U-200 insulin) bupropion HCl 150 mg tablet,12 hr 150 mg PO BID 90 days #180 ea 07/07/23 12/03/23 Rx sustained-release clopidogrel 75 mg tablet 75 mg PO QAM #90 tabs 07/07/23 12/03/23 Rx mecobalamin (vitamin B12) 1,000 1,000 mcg PO DAILY 07/07/23 12/03/23 History mcg chewable tablet gabapentin 400 mg capsule 400 mg PO BID #60 caps 08/24/23 12/03/23 Rx tizanidine 4 mg tablet 4 mg PO BID PRN muscle spasticity 09/11/23 12/03/23 Rx #30 tabs finasteride 5 mg tablet (Proscar) 5 mg PO QAM #90 tabs 10/12/23 12/03/23 Rx lisinopril 5 mg tablet 5 mg PO DAILY #90 tabs 10/13/23 12/03/23 Rx insulin aspart U-100 100 unit/mL 20 unit subcut TIDM 12/03/23 12/03/23 History (3 mL) subcutaneous pen (Novolog FlexPen U-100 Insulin aspart) semaglutide 1 mg/dose (4 mg/3 mL) 1 mg subcut WK 12/03/23 12/03/23 History subcutaneous pen injector (Ozempic) Allergies Allergy/AdvReac Type Severity Reaction Status Date / Time No Known Allergies Allergy Verified 12/03/23 01:08 Past Med/Surg History Medical History Lumbar facet joint syndrome Low back pain Lesion of adrenal gland 4.5 cm R, likely myelolipoma to CTA report 09/2022 Physical debility uses wheelchair > can walk a few steps CAD (coronary artery disease) coronary artery disease with prior SD complicated by V-fib arrest. 2 drug- eluting stents placed at that time (2010) and mild residual nonocclusive disease. follows with Dr. 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 Man saw him last week Hyperkalemia SBO (small bowel obstruction) hx and resolved no surgery Morbid obesity with BMI of 40.0-44.9, adult History of SD (myocardial infarction) Acute SD 03/2011, complicated by 3 episodes of v fib requiring electrical shock- ZITA x2 On home oxygen therapy 2L N/C prn UTI (urinary tract infection) none at present Nephrolithiasis Admitted to [facility] for 7 mm L ureteral stone causing hydronephrosis/EDILMA Hypophosphatemia Surgical History History of rectal surgery (12/15/22) p Rectal Exam Under Anesthesia, Fistulotomy(Not Applicable) - Demetrius Regan MD, FACS Biopsy of fistulous tract Hx of surgical procedure Perineal abscess History of lithotripsy x several History of carpal tunnel release right History of colonoscopy Colonoscopy: 03/18/19: MAC sedation at [facility] History of bilateral cataract extraction S/P cystoscopy with ureteral stent placement mulitple---last 04/16/20, 03/05/2020 08/23/2018. MAC. No issues. Hx of transurethral resection of prostate History of tooth extraction History of cardiac cath 2011- stents x2 Family History Mother Family history of diabetes mellitus Coronary heart disease SD Father Coronary heart disease SD Myocardial infarction Other No family history of adverse response to anesthesia Denies family history of Ovarian cancer Prostate cancer Breast cancer Colorectal cancer Social History Smoking Status: Former smoker Tobacco Type: Cigarettes Age Started Using Tobacco: 16; Age Quit Using Tobacco: 62; Cigarettes Per Day: 20-30 a day; Smoking End Date: 20 plus years; Second Hand Exposure: No; Do You Dip or Chew Tobacco: No; Tobacco Cessation Education Requested by Patient: No Hx Alcohol Use: No Hx Substance Use: No Preferred Language: Vietnamese Communication Ability: Effective Visual Impairment: Limited Hearing Ability: Normal Fha Underwriter Required: No Beliefs That Will Affect Care: None marital status: Current Living Situation: Spouse current occupational status: retired How many Children do You have: 3 How many Children do You have Comment: able to assist with care as needed. Other Information That Helps Us Care for You: No Feels Safe at Home: Yes Safety Concerns: Feels Safe At This Time Childhood Exposure to Second-Hand Smoke: Yes Diet: regular caffeine: Yes (Tea and soda 2 cups daily) during the past year weight has: remained stable Dental Care, Regularly: Yes Physical Activity Frequency: Does not Exercise Seatbelt Use: always Sunscreen Use: No Assistive Devices: Denture - Upper, Oxygen - Continuous and Wheelchair Review of Systems A total of 10 systems reviewed and were otherwise negative Physical Exam Vital Signs Vital Signs - 24 hr 12/03/23 00:25 12/03/23 00:25 12/03/23 00:40 Temperature 37.6 C Temperature Source Oral Pulse Rate 98 H 98 H Pulse Rate [Apical] 98 H Pulse Rate from SpO2 Sensor Respiratory Rate 22 22 Respiratory Effort / Characteristics Respiratory Depth Normal Respiratory Pattern Blood Pressure 142/79 H Blood Pressure [Right Arm] 142/79 H Blood Pressure Mean 100 Blood Pressure Mean [Right Arm] 100 Blood Pressure Position [Right Arm] Pulse Oximetry 93 93 Oxygen Delivery Method Nasal Cannula Oxygen Flow Rate 3 3 Sepsis Recent Fever Within 48 Hours Yes Sepsis New/Unexplained Change in Mental Status No Sepsis Action Taken by Nursing No Action Required 12/03/23 01:30 12/03/23 02:00 12/03/23 02:04 Temperature Temperature Source Pulse Rate 92 H 91 H Pulse Rate [Apical] 92 H Pulse Rate from SpO2 Sensor 91 H Respiratory Rate 22 20 18 Respiratory Effort / Characteristics Non-Labored Spontaneous Respiratory Depth Normal Respiratory Pattern Regular Blood Pressure 122/91 130/77 Blood Pressure [Right Arm] 130/77 Blood Pressure Mean 101 94 Blood Pressure Mean [Right Arm] 94 Blood Pressure Position [Right Arm] Semi-fowlers Pulse Oximetry 98 100 Oxygen Delivery Method Room Air Oxygen Flow Rate Sepsis Recent Fever Within 48 Hours Sepsis New/Unexplained Change in Mental Status Sepsis Action Taken by Nursing 12/03/23 02:30 Temperature Temperature Source Pulse Rate 91 H Pulse Rate [Apical] Pulse Rate from SpO2 Sensor 76 Respiratory Rate 24 Respiratory Effort / Characteristics Respiratory Depth Respiratory Pattern Blood Pressure Blood Pressure [Right Arm] Blood Pressure Mean Blood Pressure Mean [Right Arm] Blood Pressure Position [Right Arm] Pulse Oximetry 99 Oxygen Delivery Method Oxygen Flow Rate Sepsis Recent Fever Within 48 Hours Sepsis New/Unexplained Change in Mental Status Sepsis Action Taken by Nursing VITALS: Vitals are noted on the nurse's note and reviewed by myself. Vital signs stable. GENERAL: Chronically ill-appearing white male, who is ill-appearing on presentation. HEAD: Normocephalic atraumatic. NECK: Supple without nuchal rigidity. No lymphadenopathy. No thyromegaly. Cervical spine is nontender. HEART: Regular rate and rhythm without murmurs gallops or rubs. LUNGS: Diminished throughout with some conversational dyspnea. ABDOMEN: Positive normal bowel sounds x 4. Soft, nontender, without masses or organomegaly. No guarding or rebound tenderness. MUSCULOSKELETAL: Left lower extremity is erythematous and edematous anteriorly and medially. This is quite warm to touch. Suspicion for cellulitis is high. There is bilateral pretibial edema suggesting possible fluid overload. NEURO: Patient was alert and oriented to person place and time. CN II through XII grossly intact. Course Administered Medications Aspirin (Aspirin 81 Mg Ectab) 81 mg PO QPM [facility] Stop: 01/02/24 20:59 Last Admin: 12/03/23 20:24 Dose: 81 mg Documented By: LUCIUS Atorvastatin Calcium (Atorvastatin 40 Mg Tab) 40 mg PO [facility] Stop: 01/02/24 08:59 Last Admin: 12/03/23 09:12 Dose: 40 mg Documented By: PREMA Budesonide (Budesonide 0.5 Mg/2 Ml Vial (Pulmicort)) 0.5 mg NEB BIDR [facility] Stop: 01/02/24 06:59 Last Admin: 12/03/23 19:08 Dose: 0.5 mg Documented By: Admin: 12/03/23 07:25 Dose: 0.5 mg Documented By: RENETTA Bupropion HCl (Bupropion Sr 150 Mg Tabcr) 150 mg PO BID [facility] Stop: 01/02/24 08:59 Last Admin: 12/03/23 20:24 Dose: 150 mg Documented By: Admin: 12/03/23 09:13 Dose: 150 mg Documented By: PREMA Clopidogrel Bisulfate (Clopidogrel Bisulfate 75 Mg Tab) 75 mg PO [facility] Stop: 01/02/24 08:59 Last Admin: 12/03/23 09:12 Dose: 75 mg Documented By: PREMA Cyanocobalamin (Cyanocobalamin (B-12) 500 Mcg Tablet) 1,000 mcg PO DAILY [facility] Stop: 01/02/24 08:59 Last Admin: 12/03/23 09:15 Dose: 1,000 mcg Documented By: OO Docusate Sodium (Docusate Sodium 100 Mg Cap) 100 mg PO BID [facility] Stop: 01/02/24 08:59 Last Admin: 12/03/23 20:24 Dose: 100 mg Documented By: Admin: 12/03/23 09:15 Dose: 100 mg Documented By: OO Finasteride (Finasteride 5 Mg Tab) 5 mg PO QAM [facility] Stop: 01/02/24 08:59 Last Admin: 12/03/23 09:13 Dose: 5 mg Documented By: OO Fluticasone/Vilanterol (Fluticasone/Vilanterol 100/25mcg 14 Puffs/Inhaler) 1 puffs INH DAILY [facility] Stop: 01/02/24 08:59 Last Admin: 12/03/23 09:16 Dose: 1 puffs Documented By: OO Furosemide (Furosemide 40 Mg Tab) 40 mg PO QAM [facility] Stop: 01/02/24 08:59 Last Admin: 12/03/23 09:13 Dose: 40 mg Documented By: OO Gabapentin (Gabapentin 400 Mg Cap) 400 mg PO BID [facility] Stop: 01/02/24 08:59 Last Admin: 12/03/23 20:24 Dose: 400 mg Documented By: Admin: 12/03/23 09:14 Dose: 400 mg Documented By: OO Guaifenesin (Guaifenesin 600 Mg Tabcr) 1,200 mg PO Q12 [facility] Stop: 01/02/24 08:59 Last Admin: 12/03/23 20:24 Dose: 1,200 mg Documented By: Admin: 12/03/23 12:05 Dose: 1,200 mg Documented By: OO Heparin Sodium (Porcine) (Heparin Sod 5,000 Unit/0.5 Ml Vial) 5,000 units SQ Q12 [facility] Stop: 01/02/24 08:59 Last Admin: 12/03/23 20:25 Dose: 5,000 units Documented By: Admin: 12/03/23 09:16 Dose: 5,000 units Documented By: OO Vancomycin HCl 1,000 mg/ (Sodium Chloride) 270 mls @ 200 mls/hr IV Q24H [facility] Stop: 12/10/23 17:59 Last Infusion: 12/03/23 19:20 Dose: Infused Documented By: Admin: 12/03/23 17:41 Dose: 200 mls/hr Documented By: PREMA Ceftriaxone Sodium 2,000 mg/ (Dextrose) 50 mls @ 100 mls/hr IV Q24H [facility]; Protocol Stop: 12/10/23 11:59 Last Infusion: 12/03/23 14:29 Dose: Infused Documented By: Admin: 12/03/23 13:53 Dose: 100 mls/hr Documented By: PREMA Insulin Aspart (Insulin Aspart Per Unit Charge) 0 units SC ACHS [facility] Stop: 01/02/24 07:29 Last Admin: 12/03/23 20:25 Dose: 1 units Documented By: LUCIUS Co-signed By: FERNIE Admin: 12/03/23 17:37 Dose: 8 units Documented By: PREMA Co-signed By: TAURUS Admin: 12/03/23 13:15 Dose: 12 units Documented By: PREMA Co-signed By: SUZETTE Admin: 12/03/23 09:11 Dose: 10 units Documented By: PREMA Co-signed By: TAURUS Insulin Glargine (Lantus Per Unit Charge) 40 units SC HS [facility] Stop: 01/02/24 20:59 Last Admin: 12/03/23 20:25 Dose: 40 units Documented By: LUCIUS Co-signed By: FERNIE Metoprolol Tartrate (Metoprolol Tartrate 100 Mg Tab) 100 mg PO BID [facility] Stop: 01/02/24 08:59 Last Admin: 12/03/23 20:24 Dose: 100 mg Documented By: Admin: 12/03/23 09:14 Dose: 100 mg Documented By: PREMA Vitamin D (Cholecalciferol 25 Mcg (1000 Units) Tab) 25 mcg PO BID [facility] Stop: 01/02/24 08:59 Last Admin: 12/03/23 20:24 Dose: 25 mcg Documented By: Admin: 12/03/23 09:15 Dose: 25 mcg Documented By: PREMA Discontinued Medications Furosemide (Furosemide Inj 20 Mg/2 Ml Vial) 20 mg IV ONE ONE Stop: 12/03/23 02:30 Last Admin: 12/03/23 02:37 Dose: 20 mg Documented By: HB Hydromorphone HCl (Hydromorphone Inj 0.5 Mg/0.5 Ml Syr) 0.5 mg IV NOW STA Stop: 12/03/23 12:56 Last Admin: 12/03/23 13:17 Dose: 0.5 mg Documented By: PREMA Vancomycin HCl 2,500 mg/ (Sodium Chloride) 550 mls @ 180 mls/hr IV NOW ONE Stop: 12/03/23 04:11 Last Infusion: 12/03/23 05:33 Dose: Infused Documented By: Admin: 12/03/23 02:23 Dose: 180 mls/hr Documented By: DIOGENES Piperacillin Sod/Tazobactam Sod (Zosyn) 4.5 gm in 100 mls @ 200 mls/hr IV NOW ONE Stop: 12/03/23 01:37 Last Infusion: 12/03/23 02:23 Dose: Infused Documented By: Admin: 12/03/23 01:43 Dose: 200 mls/hr Documented By: RAMSES Magnesium Sulfate/Dextrose (Magnesium Sulfate / D5w) 1 gm in 100 mls @ 100 mls/hr IV NOW STA Stop: 12/03/23 03:13 Last Infusion: 12/03/23 03:51 Dose: Infused Documented By: LUCIUS(2) Admin: 12/03/23 02:45 Dose: 100 mls/hr Documented By: KALANI Piperacillin Sod/Tazobactam (Sod 4.5 gm/ Dextrose) 100 mls @ 25 mls/hr IV Q8H [facility]; Protocol Stop: 12/10/23 07:59 Last Infusion: 12/03/23 11:48 Dose: Infused Documented By: Admin: 12/03/23 09:35 Dose: 25 mls/hr Documented By: PREMA Magnesium Sulfate/Dextrose (Magnesium Sulfate / D5w) 1 gm in 100 mls @ 50 mls/hr IV Q2H [facility] Stop: 12/03/23 12:59 Last Infusion: 12/03/23 14:08 Dose: Infused Documented By: Admin: 12/03/23 12:07 Dose: 50 mls/hr Documented By: Infusion: 12/03/23 11:35 Dose: Infused Documented By: Admin: 12/03/23 09:35 Dose: 50 mls/hr Documented By: PREMA Azithromycin 500 mg/ Dextrose 255 mls @ 127.5 mls/hr IV NOW [facility] Stop: 12/03/23 13:46 Last Infusion: 12/03/23 16:18 Dose: Infused Documented By: Admin: 12/03/23 14:08 Dose: 127.5 mls/hr Documented By: OO Insulin Aspart (Insulin Aspart Per Unit Charge) 10 units SC NOW STA Stop: 12/03/23 13:02 Last Admin: 12/03/23 13:15 Dose: 10 units Documented By: OO Co-signed By: SUZETTE Insulin Aspart (Insulin Aspart Per Unit Charge) 10 units SC NOW [facility] Stop: 12/03/23 17:21 Last Admin: 12/03/23 17:36 Dose: 10 units Documented By: OO Co-signed By: TAURUS Miscellaneous (Ozempic~Order Awaiting Action) 1 each N/A QS [facility] Stop: 01/02/24 07:59 Last Admin: 12/03/23 09:08 Dose: Not Given Documented By: OO Medical Decision Making Differential Diagnosis Differential diagnosis includes: Etiologies such as cellulitis, abscess, osteomyelitis, MRSA infection, DVT, necrotizing fasciitis, dermatitis, drug eruption, as well as others were entertained Laboratory Data 12/03/23 00:45 12/03/23 00:45 Lab Results 12/03/23 12/03/23 12/03/23 Range/Units 00:45 01:20 01:47 WBC 18.30 H (4.8-10.8) K/ul RBC 5.51 (4.70-6.10) M/uL Hgb 16.5 (14.0-18.0) g/dl Hct 52.7 H (42.0-52.0) % MCV 95.6 (80.0-100.0) fL MCH 29.9 (25.0-34.0) pg MCHC 31.3 L (32.0-36.0) g/dL RDW Std Deviation 51.0 H (36.4-46.3) fL RDW Coeff of Cirilo 14.8 H (11.5-14.5) % Plt Count 181 (130-400) K/uL MPV 9.6 (9.4-12.4) fL Immature Gran % (Auto) 0.9 % Neut % (Auto) 90.7 % Lymph % (Auto) 3.8 % Collin % (Auto) 4.0 % Eos % (Auto) 0.2 % Baso % (Auto) 0.4 % Neut # (Auto) 16.58 H (1.40-6.50) K/uL Lymph # (Auto) 0.70 L (1.20-3.40) K/uL Collin # (Auto) 0.74 H (0.11-0.59) K/uL Eos # (Auto) 0.03 (0.00-0.50) K/uL Baso # (Auto) 0.08 (0.00-0.20) K/uL Immature Gran # (Auto) 0.17 (0.01-0.20) K/uL Absolute Nucleated RBC 0.02 (0.00-0.12) K/uL Nucleated RBC % (auto) 0.1 % ABG pH 7.43 (7.35-7.45) ABG pCO2 39 (35-46) mmHg ABG pO2 100 H (80-95) mmHg ABG HCO3 26 H (19-24) mmol/L ABG O2 Saturation 98.3 H (90-95) % ABG Base Excess 1.5 (-9-1.8) mEq/L [facility] Test Pos (Pos) Oxygen Given 3L Sodium 139 (136-145) mmol/L Potassium 4.2 (3.5-5.1) mmol/L Chloride 101 (98-107) mmol/L Carbon Dioxide 27 (21-32) mmol/L Anion Gap 11 (3-11) BUN 27 H (6-23) mg/dl Creatinine 2.28 H (0.6-1.4) mg/dl Est Cr Clr Drug Dosing 40.8 ml/min Est GFR ( Amer) 32.3 ml/min Est GFR (Non-Af Amer) 27.8 ml/min BUN/Creatinine Ratio 11.8 (10-20) Glucose 195 H (70-99(Fasting)) mg/dl Lactate 4.0 H* (0.4-2.0) mmol/L Calcium 9.4 (8.6-10.3) mg/dl Magnesium 1.6 L (1.7-2.4) mg/dl Total Bilirubin 1.3 H (0.2-1.0) mg/dl AST 14 (13-39) U/L ALT 12 (7-52) U/L Alkaline Phosphatase 132 H (34-104) U/L Troponin I High Sens 28.8 H (0-20) pg/ml B-Natriuretic Peptide 62 (0-100) pg/ml Total Protein 7.5 (6.0-8.3) gm/dl Albumin 3.8 (3.4-5.0) gm/dl Globulin 3.7 (2.5-4.0) gm/dl Albumin/Globulin Ratio 1.0 (0.9-2) Adenovirus (PCR) Not Detected (NotDetected) B. pertussis DNA (PCR) Not Detected (NotDetected) B.parapertussis DNA PCR Not Detected (NotDetected) C. pneumoniae DNA (PCR) Not Detected (NotDetected) Coronavirus OC43 (PCR) Not Detected (NotDetected) Coronavirus HKU1 (PCR) Not Detected (NotDetected) Coronavirus 229E (PCR) Not Detected (NotDetected) SARS-CoV-2 (PCR) Not Detected (NotDetected) Coronavirus NL63 (PCR) Not Detected (NotDetected) Human Metapneumovir PCR Not Detected (NotDetected) Influenza Type A (PCR) Not Detected (NotDetected) Influenza Type B (PCR) Not Detected (NotDetected) M. pneumoniae (PCR) Not Detected (NotDetected) Parainfluenza 1 (PCR) Not Detected (NotDetected) Parainfluenza 2 (PCR) Not Detected (NotDetected) Parainfluenza 3 (PCR) Not Detected (NotDetected) Parainfluenza 4 (PCR) Not Detected (NotDetected) RSV (PCR) Not Detected (NotDetected) Entero/Rhino (PCR) Not Detected (NotDetected) 12/03/23 Range/Units 02:43 WBC (4.8-10.8) K/ul RBC (4.70-6.10) M/uL Hgb (14.0-18.0) g/dl Hct (42.0-52.0) % MCV (80.0-100.0) fL MCH (25.0-34.0) pg MCHC (32.0-36.0) g/dL RDW Std Deviation (36.4-46.3) fL RDW Coeff of Cirilo (11.5-14.5) % Plt Count (130-400) K/uL MPV (9.4-12.4) fL Immature Gran % (Auto) % Neut % (Auto) % Lymph % (Auto) % Collin % (Auto) % Eos % (Auto) % Baso % (Auto) % Neut # (Auto) (1.40-6.50) K/uL Lymph # (Auto) (1.20-3.40) K/uL Collin # (Auto) (0.11-0.59) K/uL Eos # (Auto) (0.00-0.50) K/uL Baso # (Auto) (0.00-0.20) K/uL Immature Gran # (Auto) (0.01-0.20) K/uL Absolute Nucleated RBC (0.00-0.12) K/uL Nucleated RBC % (auto) % ABG pH (7.35-7.45) ABG pCO2 (35-46) mmHg ABG pO2 (80-95) mmHg ABG HCO3 (19-24) mmol/L ABG O2 Saturation (90-95) % ABG Base Excess (-9-1.8) mEq/L [facility]ay[facility] Test (Pos) Oxygen Given Sodium (136-145) mmol/L Potassium (3.5-5.1) mmol/L Chloride (98-107) mmol/L Carbon Dioxide (21-32) mmol/L Anion Gap (3-11) BUN (6-23) mg/dl Creatinine (0.6-1.4) mg/dl Est Cr Clr Drug Dosing ml/min Est GFR ( Amer) ml/min Est GFR (Non-Af Amer) ml/min BUN/Creatinine Ratio (10-20) Glucose (70-99(Fasting)) mg/dl Lactate 2.4 H* (0.4-2.0) mmol/L Calcium (8.6-10.3) mg/dl Magnesium (1.7-2.4) mg/dl Total Bilirubin (0.2-1.0) mg/dl AST (13-39) U/L ALT (7-52) U/L Alkaline Phosphatase (34-104) U/L Troponin I High Sens (0-20) pg/ml B-Natriuretic Peptide (0-100) pg/ml Total Protein (6.0-8.3) gm/dl Albumin (3.4-5.0) gm/dl Globulin (2.5-4.0) gm/dl Albumin/Globulin Ratio (0.9-2) Adenovirus (PCR) (NotDetected) B. pertussis DNA (PCR) (NotDetected) B.parapertussis DNA PCR (NotDetected) C. pneumoniae DNA (PCR) (NotDetected) Coronavirus OC43 (PCR) (NotDetected) Coronavirus HKU1 (PCR) (NotDetected) Coronavirus 229E (PCR) (NotDetected) SARS-CoV-2 (PCR) (NotDetected) Coronavirus NL63 (PCR) (NotDetected) Human Metapneumovir PCR (NotDetected) Influenza Type A (PCR) (NotDetected) Influenza Type B (PCR) (NotDetected) M. pneumoniae (PCR) (NotDetected) Parainfluenza 1 (PCR) (NotDetected) Parainfluenza 2 (PCR) (NotDetected) Parainfluenza 3 (PCR) (NotDetected) Parainfluenza 4 (PCR) (NotDetected) RSV (PCR) (NotDetected) Entero/Rhino (PCR) (NotDetected) ECG Data Attestation: I personally reviewed and interpreted this ECG as follows: Indication: + SOB/dyspnea Additional Comments: Sinus rhythm with frequent Premature ventricular complexes @96 bpm Abnormal ECG When compared with ECG of 21-OCT-2022 14:45, Premature ventricular complexes are now Present Borderline criteria for Anterior infarct are now Presen MDM Narrative Physical exam and history were performed. Nursing notes, EMR, and Medication List were personally reviewed. No social concerns were identified as barriers to patients care. Patient appears to have weakness and fever bringing him to the ER. Patient appears ill on presentation. Clinically he has fluid overload in his legs with cellulitis of the left lower extremity. IV access was established and labs were obtained. Blood cultures were gathered. An order was placed for continuous cardiac monitoring. The monitor shows a rate of 86 with normal sinus rhythm. Patient's blood work is as above and was reviewed. He does have an elevated white blood cell count of 18,000. Lactic acid is elevated at 4.0. Transaminases are not diagnostic. Troponin is slightly elevated, however this appears chronic. Case was discussed very early on in the ER course with the hospitalist team. Patient does need escalation of care. Clinically he appears fluid overloaded, and with discussion with hospital service we did elect to defer a sepsis fluid bolus and give a small amount of IV Lasix. The patient was started on IV vancomycin and IV Zosyn for presumed left lower extremity cellulitis turned sepsis. Please see the hospitalist dictation for further patient course, plan, and disposition. The chart was completed utilizing [employer] Speech Voice Recognition Software. Grammatical errors, random word insertions, pronoun errors, and incomplete sentences are an occasional consequence of this system due to software limitations, ambient noise, and hardware issues. Any formal questions or concerns about the content, text, or information contained within the body of this dictation should be directly addressed to the provider for clarification. . Impression & Plan Sepsis, Bilateral lower leg cellulitis Discharge Plan Visit Data Chief Complaint: Fever Stated Complaint: Weakness, Fever, L Foot Pain ED Provider: Jessica Lacy ED Midlevel Provider: Juvenal Elias Discharge Problem: Sepsis, Bilateral lower leg cellulitis Patient Disposition: Admitted As Inpatient Discharge Instructions Interventions: ED Discharge Assessment Last Done: 12/03/23 03:58
[2023-12-03] MEDS: VANCOMYCIN HCL 2,500 MG in SODIUM CHLORIDE 0.9% 500 ML IV ONE (02:23)
[2023-12-03] MEDS: FUROSEMIDE INJ 20 MG/2 ML VIAL IV ONE (02:37)
[2023-12-03] MEDS: MAGNESIUM SULFATE / D5W 1 GM/100 ML BAG IV STA (02:45)
[2023-12-03 02:47] LABS: Adenovirus PCR Not Detected (NotDetected); Bordetella parapertussis PCR Not Detected (NotDetected); Bordetella pertussis PCR Not Detected (NotDetected); Chlamydia pneumoniae PCR Not Detected (NotDetected); Coronavirus 229E PCR Not Detected (NotDetected); Coronavirus CoV-2 (COVID19)PCR Not Detected (NotDetected); Coronavirus HKU1 PCR Not Detected (NotDetected); Coronavirus NL63 PCR Not Detected (NotDetected); Coronavirus OC43PCR Not Detected (NotDetected); Human Metapneumovirus PCR Not Detected (NotDetected); Influenza A PCR Not Detected (NotDetected); Influenza B PCR Not Detected (NotDetected); Mycoplasma pneumoniae PCR Not Detected (NotDetected); Parainfluenza Virus 1 PCR Not Detected (NotDetected); Parainfluenza Virus 2 PCR Not Detected (NotDetected); Parainfluenza Virus 3 PCR Not Detected (NotDetected); Parainfluenza Virus 4 PCR Not Detected (NotDetected); Respiratory Syncytial VirusPCR Not Detected (NotDetected); Rhinovirus/Enterovirus PCR Not Detected (NotDetected)
[2023-12-03] MEDS ORDERED: ALBUT/IPRATROP 3MG/0.5MG NEB 3 ML VIAL NEB PRN (02:50)
--- NOTE | 2023-12-03 02:50 | History & Physical Report ---
Date of Service December 03, 2023 Assessment & Plan (1) Acute on chronic respiratory failure with hypoxia: (2) Acute exacerbation of chronic obstructive pulmonary disease (COPD): (3) Cellulitis of left lower extremity without foot: (4) Venous insufficiency of both lower extremities: (5) Edema: (6) Exertional shortness of breath: (7) Buttock wound: (8) BPH with obstruction/lower urinary tract symptoms: (9) Controlled type 2 diabetes mellitus with insulin therapy: (10) CKD (chronic kidney disease) stage 4, GFR 15-29 ml/min: (11) CAD (coronary artery disease): (12) Obstructive sleep apnea of adult: (13) Elevated troponin: Plan Acute on chronic respiratory failure with hypoxia/COPD exacerbation/SREEKANTH- Continue nasal cannula oxygen, usually requires 3 L of oxygen to target pulse ox 90-92% Continue Advair. Add Duonebs Every 2 hours as needed, would likely benefit from a home Rx Add Pulmicort Respules 0.5 mg inhaled twice daily/try to avoid IV steroids due to his diabetes If patient symptoms of and if nighttime, hopefully he will agree to wear CPAP otherwise use nasal cannula oxygen Left lower extremity cellulitis- Moderately severe Place on vancomycin IV and Zosyn IV Check lower extremity arterial Dopplers Follow clinical examination closely Consult wound care Sacral wound- Had just seen Dr. Regan on 11/27 for surgical outpatient treatment Consult wound care for dressing changes, having a packing in the wound which needs changed every morning Diabetes mellitus- Hold Ozempic and standard dosing of NovoLog 20 units subcu 3 times daily with meals Change insulin degludec 60 units subcu at bedtime to 40 units subcu at bedtime Placed on Accu-Cheks with NovoLog SSI Elevated troponin CAD/hypertension/lower extremity edema- Troponin initially 28.8 with follow-up 25.9, check again in the a.m. Continue aspirin, clopidogrel, furosemide 40 mg every morning, metoprolol to tartrate Holding lisinopril Patient was given a dose of furosemide 20 mg IV in the ED CKD stage IV/hypomagnesemia- Creatinine 2.28, with base range 1.88-2.09 Magnesium 1.6 Given 1 g magnesium sulfate IV, will follow daily Daily renal function panel Generalized weakness- Multifactorial Should order PT/OT consult once he is well enough to participate History of Present Illness Chief Complaint: The patient presents to the emergency department with complaints of worsening shortness of breath and dyspnea on exertion over the past several weeks, but today developed epigastric discomfort and worsening shortness of breath, and presents to the ED for assessment. Family member reports that they also noticed him being very weak generally, and noticed his left lower extremity with increasing redness. She reports that she has been changing dressing on his sacral wound every morning, and he continues to look well and not infected after being last seen by Dr. Regan on November 27. He also reports that he has not been wearing his 3 L of oxygen almost full-time now over the past couple months Primary Care Provider: Salas Valente, The patient is a 73-year-old male with a past medical history including chronic venous insufficiency bilateral lower extremities, chronic respiratory failure with hypoxia, buttock wound, lumbar facet joint syndrome, morbid obesity, peripheral neuropathy, BPH with LUTS, diabetes mellitus on insulin, CKD stage IV, GERD, CAD, SREEKANTH, history of ureteral stones and stent placement and removal, diabetic gastroparesis, diabetic nephropathy, obesity hypoventilation syndrome and history of SBO. Patient presents to the emergency department as noted above. Allergies Allergy/AdvReac Type Severity Reaction Status Date / Time No Known Allergies Allergy Verified 12/03/23 01:08 Home Medications Medication Instructions Recorded Confirmed Type cholecalciferol (vitamin D3) 25 1,000 unit PO BID 08/22/18 12/03/23 History mcg (1,000 unit) tablet (Vitamin D3) aspirin 81 mg tablet,delayed 81 mg PO QPM 06/08/20 12/03/23 History release ammonium lactate 5 % lotion 1 g EXT BID #5 grams 09/14/22 12/03/23 Rx (Lac-Hydrin Five) docusate sodium 100 mg capsule 100 mg PO BID 09/22/22 12/03/23 History nystatin 100,000 unit/gram topical 1 applic EXT DAILY PRN infection 10/16/22 12/03/23 History powder (Nystop) flash glucose sensor (FreeStyle 12/05/22 11/28/23 History Nidia 2 Sensor kit) fluticasone 250 mcg-salmeterol 50 1 ea inhalation QAM 12/05/22 12/03/23 History mcg/dose blistr powdr for inhalation (Advair Diskus) furosemide 20 mg tablet 40 mg PO QAM 12/12/22 12/03/23 History nystatin 100,000 unit/gram topical 1 applic topical TID PRN fungal 02/24/23 12/03/23 Rx cream rash #30 grams metoprolol tartrate 100 mg tablet 100 mg PO BID #180 tabs 03/21/23 12/03/23 Rx (Lopressor) atorvastatin 40 mg tablet 40 mg PO QAM #90 tabs 04/07/23 12/03/23 Rx insulin degludec 200 unit/mL (3 60 unit subcut HS 06/01/23 12/03/23 History mL) subcutaneous pen (Tresiba FlexTouch U-200 insulin) bupropion HCl 150 mg tablet,12 hr 150 mg PO BID 90 days #180 ea 07/07/23 12/03/23 Rx sustained-release clopidogrel 75 mg tablet 75 mg PO QAM #90 tabs 07/07/23 12/03/23 Rx mecobalamin (vitamin B12) 1,000 1,000 mcg PO DAILY 07/07/23 12/03/23 History mcg chewable tablet gabapentin 400 mg capsule 400 mg PO BID #60 caps 08/24/23 12/03/23 Rx tizanidine 4 mg tablet 4 mg PO BID PRN muscle spasticity 09/11/23 12/03/23 Rx #30 tabs finasteride 5 mg tablet (Proscar) 5 mg PO QAM #90 tabs 10/12/23 12/03/23 Rx lisinopril 5 mg tablet 5 mg PO DAILY #90 tabs 10/13/23 12/03/23 Rx insulin aspart U-100 100 unit/mL 20 unit subcut TIDM 12/03/23 12/03/23 History (3 mL) subcutaneous pen (Novolog FlexPen U-100 Insulin aspart) semaglutide 1 mg/dose (4 mg/3 mL) 1 mg subcut WK 12/03/23 12/03/23 History subcutaneous pen injector (Ozempic) Past Med/Surg History Medical History Lumbar facet joint syndrome Low back pain Lesion of adrenal gland 4.5 cm R, likely myelolipoma to CTA report 09/2022 Physical debility uses wheelchair > can walk a few steps CAD (coronary artery disease) coronary artery disease with prior TX complicated by V-fib arrest. 2 drug- eluting stents placed at that time (2010) and mild residual nonocclusive disease. follows with Dr. 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 Man saw him last week Hyperkalemia SBO (small bowel obstruction) hx and resolved no surgery Morbid obesity with BMI of 40.0-44.9, adult History of TX (myocardial infarction) Acute TX 03/2011, complicated by 3 episodes of v fib requiring electrical shock- ZITA x2 On home oxygen therapy 2L N/C prn UTI (urinary tract infection) none at present Nephrolithiasis Admitted to [facility] for 7 mm L ureteral stone causing hydronephrosis/EDILMA Hypophosphatemia Surgical History History of rectal surgery (12/15/22) p Rectal Exam Under Anesthesia, Fistulotomy(Not Applicable) - Demetrius Regan MD, FACS Biopsy of fistulous tract Hx of surgical procedure Perineal abscess History of lithotripsy x several History of carpal tunnel release right History of colonoscopy Colonoscopy: 03/18/19: MAC sedation at [facility] History of bilateral cataract extraction S/P cystoscopy with ureteral stent placement mulitple---last 04/16/20, 03/05/2020 08/23/2018. MAC. No issues. Hx of transurethral resection of prostate History of tooth extraction History of cardiac cath 2010- stents x2 Family History Mother Family history of diabetes mellitus Coronary heart disease TX Father Coronary heart disease [place] Myocardial infarction Other No family history of adverse response to anesthesia Denies family history of Ovarian cancer Prostate cancer Breast cancer Colorectal cancer Social History Smoking Status: Former smoker Tobacco Type: Cigarettes Age Started Using Tobacco: 16; Age Quit Using Tobacco: 62; Cigarettes Per Day: 20-30 a day; Smoking End Date: 20 plus years; Second Hand Exposure: No; Do You Dip or Chew Tobacco: No; Tobacco Cessation Education Requested by Patient: No Hx Alcohol Use: No Hx Substance Use: No Preferred Language: Nepalese Communication Ability: Effective Visual Impairment: Limited Hearing Ability: Normal Drapery Cutter Required: No Beliefs That Will Affect Care: None marital status: Current Living Situation: Spouse current occupational status: retired How many Children do You have: 3 How many Children do You have Comment: able to assist with care as needed. Other Information That Helps Us Care for You: No Feels Safe at Home: Yes Safety Concerns: Feels Safe At This Time Childhood Exposure to Second-Hand Smoke: Yes Diet: regular caffeine: Yes (Tea and soda 2 cups daily) during the past year weight has: remained stable Dental Care, Regularly: Yes Physical Activity Frequency: Does not Exercise Seatbelt Use: always Sunscreen Use: No Assistive Devices: Denture - Upper, Oxygen - Continuous and Wheelchair Review of Systems Review of Systems: The patient denies palpitations, sore throat, fevers, chills, sweats, nausea, vomiting, diarrhea , constipation, abdominal pain, pelvic pain, blood in urine or stool, dysuria, urinary frequency or urgency, lightheadedness, dizziness, headache, memory loss, loss of consciousness, abnormal bruising or bleeding, focal weakness, numbness or tingling in arms, generalized arthralgias or myalgias, back or neck pain, or night sweats. The review of systems is otherwise negative other than for that already noted a desirae, and at least 10 systems have been reviewed. Physical Exam Physical Exam: The patient is awake, alert and oriented 3, well developed and well nourished, normocephalic and atraumatic, sitting upright in bed, with mild shortness of breath with conversation HEENT--PERRL, EOMI, mucous membranes and oropharynx dry. Neck--supple. No JVD. No bruits. Thyroid normal, trachea midline, no adenopathy. Heart--normal S1 and S2. No murmurs, rubs or gallops. Lungs--decreased breath sounds throughout. Mildly short of breath with conversation. No accessory muscle use. Abdomen--normal bowel sounds and soft. Nontender. Nondistended. Morbidly obese Extremities--1+ bilateral pretibial pitting edema, worse on the left. Dermatologic-moderate erythema and warmth of left lower extremity below the knee/anterior tibial length Neurologic--cranial nerves II through XII grossly intact. Rheumatologic--limited exam due to body habitus Psychiatric--normal affect. Results & Data Results & Data Vital Signs (Past 12 Hours) Vital Signs Temp Pulse Pulse Resp BP BP Pulse Ox 12/03/23 02:04 92 H 18 130/77 100 12/03/23 00:40 98 H 12/03/23 00:25 98 H 22 142/79 H 93 12/03/23 00:25 37.6 C 98 H 22 142/79 H 93 O2 Del Method O2 Flow Rate 12/03/23 02:04 Room Air 12/03/23 00:40 12/03/23 00:25 Nasal Cannula 3 12/03/23 00:25 3 Laboratory Results Laboratory Results WBC 18.30 K/ul (4.8-10.8) H 12/03/23 00:45 RBC 5.51 M/uL (4.70-6.10) 12/03/23 00:45 Hgb 16.5 g/dl (14.0-18.0) 12/03/23 00:45 Hct 52.7 % (42.0-52.0) H 12/03/23 00:45 MCV 95.6 fL (80.0-100.0) 12/03/23 00:45 MCH 29.9 pg (25.0-34.0) 12/03/23 00:45 MCHC 31.3 g/dL (32.0-36.0) L 12/03/23 00:45 RDW Std Deviation 51.0 fL (36.4-46.3) H 12/03/23 00:45 RDW Coeff of Cirilo 14.8 % (11.5-14.5) H 12/03/23 00:45 Plt Count 181 K/uL (130-400) 12/03/23 00:45 MPV 9.6 fL (9.4-12.4) 12/03/23 00:45 Immature Gran % (Auto) 0.9 % 12/03/23 00:45 Neut % (Auto) 90.7 % 12/03/23 00:45 Lymph % (Auto) 3.8 % 12/03/23 00:45 [place] % (Auto) 4.0 % 12/03/23 00:45 Eos % (Auto) 0.2 % 12/03/23 00:45 Baso % (Auto) 0.4 % 12/03/23 00:45 Neut # (Auto) 16.58 K/uL (1.40-6.50) H 12/03/23 00:45 Lymph # (Auto) 0.70 K/uL (1.20-3.40) L 12/03/23 00:45 [place] # (Auto) 0.74 K/uL (0.11-0.59) H 12/03/23 00:45 Eos # (Auto) 0.03 K/uL (0.00-0.50) 12/03/23 00:45 Baso # (Auto) 0.08 K/uL (0.00-0.20) 12/03/23 00:45 Immature Gran # (Auto) 0.17 K/uL (0.01-0.20) 12/03/23 00:45 Absolute Nucleated RBC 0.02 K/uL (0.00-0.12) 12/03/23 00:45 Nucleated RBC % (auto) 0.1 % 12/03/23 00:45 ABG pH 7.43 (7.35-7.45) 12/03/23 01:20 ABG pCO2 39 mmHg (35-46) 12/03/23 01:20 ABG pO2 100 mmHg (80-95) H 12/03/23 01:20 ABG HCO3 26 mmol/L (19-24) H 12/03/23 01:20 ABG O2 Saturation 98.3 % (90-95) H 12/03/23 01:20 ABG Base Excess 1.5 mEq/L (-9-1.8) 12/03/23 01:20 [place] Test Pos (Pos) 12/03/23 01:20 Oxygen Given 3L 12/03/23 01:20 Sodium 139 mmol/L (136-145) 12/03/23 00:45 Potassium 4.2 mmol/L (3.5-5.1) 12/03/23 00:45 Chloride 101 mmol/L (98-107) 12/03/23 00:45 Carbon Dioxide 27 mmol/L (21-32) 12/03/23 00:45 Anion Gap 11 (3-11) 12/03/23 00:45 BUN 27 mg/dl (6-23) H 12/03/23 00:45 Creatinine 2.28 mg/dl (0.6-1.4) H 12/03/23 00:45 Est Cr Clr Drug Dosing 40.8 ml/min 04 00:45 Est GFR ( Amer) 32.3 ml/min 12/03/23 00:45 Est GFR (Non-Af Amer) 27.8 ml/min 04 00:45 BUN/Creatinine Ratio 11.8 (10-20) 12/03/23 00:45 Glucose 195 mg/dl (70-99(Fasting)) H 12/03/23 00:45 POC Glucose 259 mg/dl (70-99) H 12/03/23 04:07 Lactate 2.4 mmol/L (0.4-2.0) H* 12/03/23 02:43 Calcium 9.4 mg/dl (8.6-10.3) 12/03/23 00:45 Magnesium 1.6 mg/dl (1.7-2.4) L 12/03/23 00:45 Total Bilirubin 1.3 mg/dl (0.2-1.0) H 12/03/23 00:45 AST 14 U/L (13-39) 12/03/23 00:45 ALT 12 U/L (7-52) 12/03/23 00:45 Alkaline Phosphatase 132 U/L (34-104) H 12/03/23 00:45 Troponin I High Sens 25.9 pg/ml (0-20) H 12/03/23 04:08 B-Natriuretic Peptide 62 pg/ml (0-100) 12/03/23 01:20 Total Protein 7.5 gm/dl (6.0-8.3) 12/03/23 00:45 Albumin 3.8 gm/dl (3.4-5.0) 12/03/23 00:45 Globulin 3.7 gm/dl (2.5-4.0) 12/03/23 00:45 Albumin/Globulin Ratio 1.0 (0.9-2) 04 00:45 Adenovirus (PCR) Not Detected (NotDetected) 12/03/23 01:47 B. pertussis DNA (PCR) Not Detected (NotDetected) 12/03/23 01:47 B.parapertussis DNA PCR Not Detected (NotDetected) 12/03/23 01:47 C. pneumoniae DNA (PCR) Not Detected (NotDetected) 12/03/23 01:47 Coronavirus OC43 (PCR) Not Detected (NotDetected) 12/03/23 01:47 Coronavirus HKU1 (PCR) Not Detected (NotDetected) 12/03/23 01:47 Coronavirus 229E (PCR) Not Detected (NotDetected) 12/03/23 01:47 SARS-CoV-2 (PCR) Not Detected (NotDetected) 12/03/23 01:47 Coronavirus NL63 (PCR) Not Detected (NotDetected) 12/03/23 01:47 Human Metapneumovir PCR Not Detected (NotDetected) 12/03/23 01:47 Influenza Type A (PCR) Not Detected (NotDetected) 12/03/23 01:47 Influenza Type B (PCR) Not Detected (NotDetected) 12/03/23 01:47 M. pneumoniae (PCR) Not Detected (NotDetected) 12/03/23 01:47 Parainfluenza 1 (PCR) Not Detected (NotDetected) 12/03/23 01:47 Parainfluenza 2 (PCR) Not Detected (NotDetected) 12/03/23 01:47 Parainfluenza 3 (PCR) Not Detected (NotDetected) 12/03/23 01:47 Parainfluenza 4 (PCR) Not Detected (NotDetected) 12/03/23 01:47 RSV (PCR) Not Detected (NotDetected) 12/03/23 01:47 Entero/Rhino (PCR) Not Detected (NotDetected) 12/03/23 01:47 Code Status & VTE Plan Code Status Full code VTE Prophylaxis Plan VTE Prophylaxis will be ordered: Yes PG Care Time/CCT Total # of Minutes Spent Total Time Spent with Patient: Total time spent is greater than 50% in coordination of care (as documented) at patient's floor/unit and/or counseling patient: Coding Level of Care Code 33506 INT INP/OBS CARE 75MIN Diagnoses Acute on chronic respiratory failure with hypoxia J96.21 Acute exacerbation of chronic obstructive pulmonary disease (COPD) J44.1 Cellulitis of left lower extremity without foot L03.116 Venous insufficiency of both lower extremities I87.2 Edema R60.9 Exertional shortness of breath R06.02 Buttock wound S31.809A BPH with obstruction/lower urinary tract symptoms N40.1; N13.8 Controlled type 2 diabetes mellitus with insulin therapy E11.9; Z79.4 CKD (chronic kidney disease) stage 4, GFR 15-29 ml/min N18.4 Coronary artery disease involving [place] coronary artery of [place] heart without angina pectoris I25.10 Coronary Disease-Associated Artery/Lesion type: [place] artery [place] vs. transplanted heart: [place] heart Associated angina: without angina Obstructive sleep apnea of adult G47.33 Elevated troponin R79.89 (11) CAD (coronary artery disease) Coronary Disease-Associated Artery/Lesion type: [place] artery [place] vs. transplanted heart: [place] heart Associated angina: without angina Qualified Code(s): I25.10 - Atherosclerotic heart disease of [place] coronary artery without angina pectoris
[2023-12-03] MEDS ORDERED: GLUCOSE 40% GEL 15 GM TUBE PO PRN (03:50)
[2023-12-03] MEDS ORDERED: CARBOHYDRATES FOR HYPOGLYCEMIA PO PRN (03:50)
[2023-12-03] MEDS ORDERED: GLUCOSE 10 TAB/TUBE PO PRN (03:50)
[2023-12-03] MEDS ORDERED: ONDANSETRON INJ 2 MG/ML 2 ML VIAL IV PRN (03:50)
[2023-12-03] MEDS ORDERED: NYSTATIN CR 15 GM TUBE EXT PRN (03:50)
[2023-12-03] MEDS ORDERED: GLUCAGON FOR INJ 1 MG VIAL SQ PRN (03:50)
[2023-12-03] MEDS ORDERED: DEXTROSE 50% 50 ML SYRINGE IV PRN (03:50)
[2023-12-03 07:24] LABS: Estimated Average Glucose 169 mg/dl; Hemoglobin A1C 7.5 % (4.5-5.6)
[2023-12-03] MEDS: BUDESONIDE 0.5 MG/2 ML VIAL (PULMICORT) NEB SCH (07:25)
--- NOTE | 2023-12-03 08:44 | XRay Report ---
XR chest 1V portable CLINICAL HISTORY: sob TECHNIQUE: Single frontal radiograph of the chest was obtained. Comparison: Comparison is made to chest radiograph 10/21/2022 FINDINGS: No lines and tubes are seen. The cardiomediastinal silhouette is normal. The lungs are clear. No evid ence of pleural effusion or pneumothorax. Again noted is a bleb in the left lower lobe. IMPRESSION: No acute chest disease. ACT 112: Negative or not required by law. Electronically signed by: Agustín Hayes M.D. 12/03/2023 8:42 AM
[2023-12-03] MEDS: INSULIN ASPART PER UNIT CHARGE SC SCH (09:11)
[2023-12-03] MEDS: CLOPIDOGREL BISULFATE 75 MG TAB PO SCH (09:12)
[2023-12-03] MEDS: ATORVASTATIN 40 MG TAB PO SCH (09:12)
[2023-12-03] MEDS: buPROPion SR 150 MG TABCR PO SCH (09:13)
[2023-12-03] MEDS: FUROSEMIDE 40 MG TAB PO SCH (09:13)
[2023-12-03] MEDS: FINASTERIDE 5 MG TAB PO SCH (09:13)
[2023-12-03] MEDS: GABAPENTIN 400 MG CAP PO SCH (09:14)
[2023-12-03] MEDS: METOPROLOL TARTRATE 100 MG TAB PO SCH (09:14)
[2023-12-03] MEDS: CYANOCOBALAMIN (B-12) 500 MCG TABLET PO SCH (09:15)
[2023-12-03] MEDS: CHOLECALCIFEROL 25 MCG (1000 UNITS) TAB PO SCH (09:15)
[2023-12-03] MEDS: DOCUSATE SODIUM 100 MG CAP PO SCH (09:15)
[2023-12-03] MEDS: HEPARIN SOD 5,000 UNIT/0.5 ML VIAL SQ SCH (09:16)
[2023-12-03] MEDS: FLUTICASONE/VILANTEROL 100/25MCG 14 PUFFS/INHALER INH SCH (09:16)
[2023-12-03] MEDS: MAGNESIUM SULFATE / D5W 1 GM/100 ML BAG IV SCH (09:35)
[2023-12-03] MEDS: PIPER/TAZO 4.5g in D5W MINI-B 100 ML IV SCH (09:35)
--- NOTE | 2023-12-03 10:27 | Hospitalist Progress Note ---
Date of Service December 03, 2023 Assessment & Plan (1) Acute on chronic respiratory failure with hypoxia: Plan: 73 M with PMH including chronic venous insufficiency of bilateral lower extremity, chronic respiratory failure with hypoxia, buttock wound, lumbar facet joint syndrome, morbid obesity, peripheral neuropathy, BPH with LUTS, DM2 on insulin, CKD 4, GERD, CAD, SREEKANTH, who presented to the emergency room for weeks of progressive shortness of breath, dyspnea on exertion. Acute Hypoxic Respiratory Failure/COPD Exacerbation/SREEKANTH -Known COPD on 3 L of oxygen at home, maintenance daily Advair inhaler. -Lactate 4.0 in the ED (repeat 2.3). ABG pattern showing only mild hypoxia. BNP 62 on arrival, 118 < 12 hours later. -Suspect presentation is multifactorial: chronic physical deconditioning, right heart failure may be contributing more to presentation. -S/p Pulmicort (budesonide) inhaler on admission (vs. IV corticosteroid due to uncontrolled DM2). -Currently saturating high 95-97% on 3 L oxygen (on 3 L at home). * Started Breo Ellipta (Advair substitute), plus as needed DuoNebs, Pulmicort * IV azithromycin x 5 days, last dose 12/06 * Echo pending. Appreciate findings * O2 ventilatory support via nasal cannula. Consider nighttime CPAP * PT/OT evaluation pending. Appreciate dispo recs Left Lower Extremity Cellulitis/Perirectal Ulcer -Chronic lower extremity venous stasis, peripheral neuropathy (including neuropathic skin changes). -Perirectal ulcer is known. Follows with wound care. -S/p IV vancomycin, Zosyn on admission (x 1 dose each). Last MRSA nares screen negative (2019). -Patient afebrile since arrival. No other signs concerning for sepsis. Lower suspicion for bacteremia, gram-negative or otherwise at this time. -Urine, blood cultures collected pending. -Stopped Zosyn. Stopped IV vancomycin (May reorder if most recent MRSA nares ordered is positive). * IV ceftriaxone 2 g daily x 7 days. Last dose 12/08 * Wound care consult placed Type 2 diabetes -Chronic. On weekly Ozempic 1 mg, basal/bolus insulin regimen (NovoLog SQ 20 units 3 times daily with meals, Tresiba SQ 60 units nightly). -BSG 259-383 since admission. A.m. HgbA1c = 7.5% -Ozempic held, home insulin regimen adjusted (see below) * Glargine 40 units SQ nightly * SSI NovoLog (CF = 20, CR = 10, BSG range 120-160, ACHS checks) * Trend BSG EDILMA/CKD 4 -Baseline Cr: 1.82. Cr on admission 2.28. GFR still stage IV. Likely prerenal due to poor p.o. nutrition 2/2 ambulatory dysfunction. -S/p IV Lasix 20 mg in the ED. * Holding home lisinopril * Daily renal function panel Elevated Troponin/CAD/LE Edema/Hypertension -Chronically managed on aspirin, clopidogrel, furosemide, metoprolol tartrate. -Troponin 28.8, 2-hour repeat 25.8. * Continue home aspirin, Plavix, Lasix, metoprolol * Resume lisinopril once creatinine improves Chronic problems: -Hyperlipidemia: Atorvastatin 40 mg daily -BPH: Continue home finasteride 5 mg every morning -GERD: Famotidine 10 mg twice daily as needed -Lower back pain/spasticity: Tizanidine, acetaminophen, IV Zofran as needed. May consider spot doses of Dilaudid for additional pain Code: Full code Dispo: Med-Surg telemetry FEN/GI: Heart healthy/Carb consistent DVT Prophylaxis: Heparin 5000 u q12h PT/OT: Yes Consults: Wound care nurse (2) Acute exacerbation of chronic obstructive pulmonary disease (COPD): (3) Cellulitis of left lower extremity without foot: (4) Venous insufficiency of both lower extremities: (5) Edema: (6) Exertional shortness of breath: (7) Buttock wound: (8) BPH with obstruction/lower urinary tract symptoms: (9) Controlled type 2 diabetes mellitus with insulin therapy: (10) CKD (chronic kidney disease) stage 4, GFR 15-29 ml/min: (11) CAD (coronary artery disease): (12) Obstructive sleep apnea of adult: (13) Elevated troponin: Admission and Anticipated Discharge Date Admission Date: December 03, 2023 Supervising Physician Co-Signing Physician Notes Attending Physician Supervision Note: I independently interviewed and examined the patient and verified the dooley history and physical, reviewed labs and image studies and agree with findings and care plan noted above. Fever - presenting complains. leg cellulitis and perirectal ulcer -wbc at 18k. lactate 2.4. resp biofire - neg. blood and urine cx pending. CXR no acute changes. -continue vancomycin and ceftriaxone. EDILMA - creatinine baseline at 1.7. 2.2 on admission. follow. Resp distress- chronic. known severe copd. -saturating well on baseline O2 needs. Low back pain - chronic. SQ heparin Subjective Patient is awake and alert on arrival this morning. He reports no improvement in his symptoms vs admission last night. He still reports shortness of breath. Denies chest pain, dizziness, cold/flu symptoms. Patient confirms he is on 3 L of oxygen at home. Review of Systems Review of Systems: All systems reviewed & are unremarkable except as noted in HPI & below Physical Exam Physical Exam: General: Heavyset appearing man in mild distress. HEENT: PERRLA. Normal conjunctiva, anicteric sclera. Oropharynx normal. Respiratory: Unable to auscultate due to body habitus. Cardiovascular: RRR without murmurs, gallops, or rubs. Skin: Chronic neuropathic changes of the bilateral lower extremity. Diffuse erythema of the lower leg bilaterally. Stage I/stage II perirectal ulcer with surrounding fluctuance, erythema. Neuro: Alert and oriented x3. Results & Data Results & Data Vital Signs (Past 12 Hours) Vital Signs Temp Pulse Pulse Pulse Resp BP BP 12/03/23 08:15 36.7 C 85 18 136/85 12/03/23 07:27 86 15 12/03/23 03:50 80 81 22 160/90 H 12/03/23 03:45 91 H 12/03/23 03:45 12/03/23 03:00 92 H 22 12/03/23 02:30 91 H 24 12/03/23 02:04 92 H 18 130/77 12/03/23 02:00 91 H 20 130/77 12/03/23 01:30 92 H 22 122/91 12/03/23 00:40 98 H 12/03/23 00:25 98 H 22 142/79 H 12/03/23 00:25 37.6 C 98 H 22 142/79 H Pulse Ox O2 Del Method O2 Flow Rate 12/03/23 08:15 100 Nasal Cannula 3.0 12/03/23 07:27 98 Nasal Cannula 3 12/03/23 03:50 97 Nasal Cannula 3 12/03/23 03:45 12/03/23 03:45 Nasal Cannula 4 12/03/23 03:00 98 12/03/23 02:30 99 12/03/23 02:04 100 Room Air 12/03/23 02:00 98 12/03/23 01:30 12/03/23 00:40 12/03/23 00:25 93 Nasal Cannula 3 12/03/23 00:25 93 3 Resident Activity Tracking Resident Involvement: Resident Care Provided Care Provided: Adult Hospital Medicine (11) CAD (coronary artery disease) Associated angina: without angina Coronary Disease-Associated Artery/Lesion type: [place] artery [place] vs. transplanted heart: [place] heart Qualified Code(s): I25.10 - Atherosclerotic heart disease of [place] coronary artery without angina pectoris
--- NOTE | 2023-12-03 10:40 | Pharmacy Report ---
Pharmacy PK ABX Note - Date of Service December 03, 2023 - Assessment and Plan Assessment 73 year old M receiving Vancomycin and Zosyn for treatment of left lower extremity cellulitis. * Day #1 of antimicrobial therapy. * Afebrile but leukocytosis of 18k. SCr 2.28 mg/dL. * Blood cultures pending. Plan Vancomycin * Loading dose: 2500 mg IV x 1 * Maintenance dose: 1000 mg IV every 24 hours * Regimen is predicted to achieve target AUC/LIONEL of 400-600 mg/L.hr * Level will be ordered in 48-72 hours if vancomycin is to continue Zosyn * 4.5 g IV every 8 hours Pharmacy will continue to follow and will adjust dose/frequency as necessary. Thank you. Pharmacy has transitioned to AUC monitoring for vancomycin. AUC/LIONEL is the preferred PK/PD target and is associated with decreased risk of nephrotoxicity compared to traditional trough targets.
--- NOTE | 2023-12-03 11:50 | Ultrasound Report ---
US venous doppler LE BI CLINICAL HISTORY: pedal edema TECHNIQUE: Bilateral lower extremity real-time compression venous ultrasound with Color Doppler imagi ng. Utilizing real-time ultrasonic imaging multiple real time high-resolution ultrasonic images with compression and noncompression maneuvers of the deep venous system in addition to color doppler imagi ng were performed from the common femoral vein through the proximal calf veins. COMPARISON: Comparison is made to a venous Doppler ultrasound 01/13/2016 FINDINGS/IMPRESSION: Currently there is normal compressibility of the deep venous system from the common femoral vein thro ugh the proximal calf veins. No superficial venous thrombosis is identified. ACT 112: Negative or not required by law. Electronically signed by: Agustín Hayes M.D. 12/03/2023 11:49 AM
[2023-12-03] MEDS: guaiFENesin 600 MG TABCR PO SCH (12:05)
[2023-12-03] MEDS: INSULIN ASPART PER UNIT CHARGE SC STA ×2 (13:15→17:36)
[2023-12-03] MEDS: HYDROmorphone INJ 0.5 MG/0.5 ML SYR IV STA (13:17)
[2023-12-03] MEDS: cefTRIAXone SODIUM 2,000 MG in DEXTROSE 5 % MINI-B 50 ML IV SCH (13:53)
[2023-12-03] MEDS: AZITHROMYCIN 500 MG in DEXTROSE 5% 250 ML IV STA (14:08)
[2023-12-03 16:16] LABS: Appearance Urine Clear (Clear); Bacteria Urine Automated Negative (Negative); Bilirubin Urine Negative (Negative); Blood Urine Negative (Negative); Color Urine Yellow; Glucose Urine UA 3+ (Negative); Ketones Urine Negative (Negative); Leukocyte Esterase Urine Negative (Negative); Nitrite Urine Negative (Negative); Protein Urine Trace (Negative); RBC Urine Automated 0-4 /hpf (0-4); Specific Gravity Urine 1.017 (1.000-1.030); Urobilinogen Urine Negative (Negative)
[2023-12-03] MEDS: VANCOMYCIN HCL 1,000 MG in SODIUM CHLORIDE 0.9% 250 ML IV SCH (17:41)
[2023-12-03] MEDS: ASPIRIN 81 MG ECTAB PO SCH (20:24)
[2023-12-03] MEDS: LANTUS PER UNIT CHARGE SC SCH (20:25)
--- NOTE | 2023-12-03 20:41 | XCELERA ---
[id number]
[2023-12-03] MEDS ORDERED: LANTUS PER UNIT CHARGE SC SCH (21:00)
[2023-12-04 05:01] LABS: Albumin Globulin Ratio 0.9 (0.9-2); Albumin Level 2.8 gm/dl (3.4-5.0); BUN Creatinine Ratio 13.1 (10-20); Bilirubin,Total 0.7 mg/dl (0.2-1.0); Calcium 8.7 mg/dl (8.6-10.3); Creatinine Clr Calc Pharmacy 32.9 ml/min; Est GFR (African American) 25.7 ml/min; Est GFR (Non-African American) 22.2 ml/min; Magnesium 2.2 mg/dl (1.7-2.4); Potassium 3.8 mmol/L (3.5-5.1); Total Protein 5.8 gm/dl (6.0-8.3)
[2023-12-04 05:05] LABS: Basophils # (auto) 0.04 K/uL (0.00-0.20); Basophils % (auto) 0.3 %; Eosinophils # (auto) 0.08 K/uL (0.00-0.50); Eosinophils % (auto) 0.6 %; Hematocrit (blood only) 41.7 % (42.0-52.0); Immature Granulocytes # (auto) 0.14 K/uL (0.01-0.20); Lymphocytes # (auto) 0.76 K/uL (1.20-3.40); Lymphocytes % (auto) 5.5 %; Mean Corpuscular Hemoglobin 30.1 pg (25.0-34.0); Mean Corpuscular Hgb Conc 31.2 g/dL (32.0-36.0); Mean Corpuscular Volume 96.5 fL (80.0-100.0); Mean Platelet Volume 9.8 fL (9.4-12.4); Monocytes # (auto) 0.95 K/uL (0.11-0.59); Monocytes % (auto) 6.9 %; Neutrophils # (auto) 11.79 K/uL (1.40-6.50); Neutrophils % (auto) 85.7 %; Platelet Count 135 K/uL (130-400); RDW Coefficient of Variation 14.9 % (11.5-14.5); RDW Standard Deviation 52.7 fL (36.4-46.3); Red Blood Count 4.32 M/uL (4.70-6.10); White Blood Count 13.76 K/ul (4.8-10.8)
--- NOTE | 2023-12-04 05:57 | Electrocardiogram Report ---
Test Reason : Blood Pressure : / mmHG Vent. Rate : 096 BPM Atrial Rate : 096 BPM P-R Int : 140 ms QRS Dur : 084 ms QT Int : 360 ms P-R-T Axes : 086 -60 061 degrees QTc Int : 454 ms Sinus rhythm with frequent Premature ventricular complexes Left axis deviation Possible Anterior infarct , age undetermined Abnormal ECG When compared with ECG of 21-OCT-2022 14:45, Premature ventricular complexes are now Present QRS axis Shifted left Borderline criteria for Anterior infarct are now Present Confirmed by Lanre Katz ([id number]) on 12/04/2023 5:57:17 AM Referred By: REFERRED SELF Confirmed By:Lanre Katz
--- NOTE | 2023-12-04 07:58 | Hospitalist Progress Note ---
Date of Service December 04, 2023 Assessment & Plan (1) Acute on chronic respiratory failure with hypoxia: Plan: 73 year old M with complicated past medical history significant for chronic venous insufficiency of bilateral lower extremities, chronic respiratory failure with hypoxia, buttock wound, morbid obesity, peripheral neuropathy, DM2 on insulin, CKD 4, GERD, CAD, and SREEKANTH, who presents with weeks of shortness of breath and dyspnea on exertion. He feels about the same this AM, and is concerned about current back pain and chronic urinary urgency. Acute Hypoxic Respiratory Failure/COPD Exacerbation/SREEKANTH -Known COPD on 3 L of oxygen at home and uses maintenance daily Advair inhaler. He has not needed any doses of DuoNebs or Pulmicort prn while here and oxygen saturation 100% this AM, so less suspicious for COPD exacerbation. -This could multifactorial; chronic physical deconditioning, obesity, obstructive sleep apnea, may all contribute to his clinical picture of difficulty breathing and shortness of breath. -Lactate 4.0 in the ED (repeat 2.3). ABG pattern showing only mild hypoxia. BNP 62 on arrival, 118 < 12 hours later. -Echo showed EF 55-60% with no significant valvular dysfunction. -Currently saturating 100% on 3 L oxygen via nasal cannula (on 3 L at home). * Finish IV azithromycin x 5 days, last dose will be 12/06 * Strongly recommend nighttime CPAP, consult case management * Skilled rehab after discharge Left Lower Extremity Cellulitis/Perirectal Ulcer -Chronic lower extremity venous stasis, peripheral neuropathy (including neuropathic skin changes). -Following with wound care for perirectal ulcer is known. -Doppler US negative for thrombosis and compression. -Patient afebrile since arrival and has no other signs concerning for sepsis. -Stopped Zosyn and vancomycin. -Blood cultures show no growth for 24 hours. * Finish IV ceftriaxone 2 g daily x 7 days, last dose will be 12/08 * Wound care consult pending Type 2 diabetes -Chronic, on weekly Ozempic 1 mg, basal/bolus insulin regimen of NovoLog SQ 20 units 3 times daily with meals, Tresiba SQ 60 units nightly. -Fasting glucose 145 mg/dl and POC glucose 139 this AM. -Continue holding Ozempic, home insulin regimen adjusted (see below) * Glargine 40 units SQ nightly * SSI NovoLog (CF = 20, CR = 10, BSG range 120-160, ACHS checks) * Trend BSG EDILMA/CKD 4 -Baseline Cr: 1.82. Cr on admission 2.28. GFR still stage IV. Likely prerenal EDILMA due to poor p.o. nutrition and ambulatory dysfunction. -Cr rising, 2.75 mg/dl this AM. * Echo reassuring, start NSS 125 mL * Holding home lisinopril * Daily renal function panel Elevated Troponin/CAD/LE Edema/Hypertension -Chronically managed on aspirin, clopidogrel, furosemide, metoprolol tartrate. -Troponin 28.8, 2-hour repeat 25.8. * Continue home aspirin, Plavix, and metoprolol * Resume lisinopril and Lasix when creatinine improves Chronic problems: -Hyperlipidemia: Atorvastatin 40 mg daily -BPH: Continue home finasteride 5 mg every morning. -GERD: Famotidine 10 mg twice daily as needed -Lower back pain/spasticity: Tizanidine, acetaminophen, IV Zofran as needed. Patient refused acetaminophen this AM, stating that it does not work for him * Toradol 15 mg for acute pain management Code: Full code Dispo: Med-Surg telemetry FEN/GI: Heart healthy/Carb consistent DVT Prophylaxis: Heparin 5000 u q12h PT/OT: Yes Consults: Wound care nurse (2) Acute exacerbation of chronic obstructive pulmonary disease (COPD): (3) Cellulitis of left lower extremity without foot: (4) Venous insufficiency of both lower extremities: (5) Edema: (6) Exertional shortness of breath: (7) Buttock wound: (8) BPH with obstruction/lower urinary tract symptoms: (9) Controlled type 2 diabetes mellitus with insulin therapy: (10) CKD (chronic kidney disease) stage 4, GFR 15-29 ml/min: (11) CAD (coronary artery disease): (12) Obstructive sleep apnea of adult: (13) Elevated troponin: Admission and Anticipated Discharge Date Admission Date: December 03, 2023 Supervising Physician Co-Signing Physician Notes I personally examined the patient and verified all dooley points of history and exam, discussed case, and agree with decision making with Dr Roque and M Torre MS2 only. Does not wake to gentle verbal and physical stem, but also appears to be in no distress. Was awake earlier for resident and student physician. Vitals noted. No distress. Breathing unlabored at rest. Lungs are quiet but clear no rales rhonchi or wheezes. Fever - presenting complains. leg cellulitis and perirectal ulcer - Continue antibiotics and follow. EDILMA - creatinine baseline Around 2.0. Given no decompensated CHF (and questionable chronic diastolic CHF historyI suspect it is predominantly venous stasis and COPD)suspect rising creatinine is prerenal from diureticsdiuretics held, gentle fluids given. follow. Resp distress- chronic. known severe copd. strongly suspect untreated SREEKANTH a driving factor as well -saturating well on baseline O2 needs. ABG reassuring, will discuss SREEKANTH with pt further as he allows Low back pain - chronic. SQ heparin Subjective Patient is awake and alert this AM. He reports slight to no improvement in his difficulty breathing, shortness of breath, and left lower extremity pain. He has not been able to ambulate while at the hospital. He reports significant lower back pain. Otherwise he denies any new symptoms. Review of Systems Review of Systems: Negative except as noted above. Physical Exam Constitutional: WD/WN, vitals as above Respiratory: normal respiratory effort, lungs clear to auscultation Cardiovascular: Rate/Rhythm: regular rate and regular rhythm Muffled heart sounds. Lower extremity edema bilaterally, left greater than right. Skin: Edema, erythema, and xerosis of the lower extremities bilaterally, left greater than right. Painful to touch. Results & Data Results & Data Vital Signs (Past 12 Hours) Vital Signs Temp Pulse Pulse Resp BP Pulse Ox O2 Del Method 12/04/23 07:47 Nasal Cannula 12/04/23 07:00 78 18 99 Nasal Cannula 12/04/23 03:57 36.8 C 74 18 127/86 97 Nasal Cannula 12/04/23 00:39 79 12/03/23 23:28 37.1 C 78 20 131/81 99 Nasal Cannula O2 Flow Rate 12/04/23 07:47 3 12/04/23 07:00 3 12/04/23 03:57 4.0 12/04/23 00:39 12/03/23 23:28 4.0 (11) CAD (coronary artery disease) Associated angina: without angina Coronary Disease-Associated Artery/Lesion type: [place] artery [place] vs. transplanted heart: [place] heart Qualified C ode(s): I25.10 - Atherosclerotic heart disease of [place] coronary artery without angina pectoris
[2023-12-04] MEDS: ACETAMINOPHEN 325 MG TAB PO STA (09:27)
[2023-12-04] MEDS: LACTATED RINGER'S 1,000 ML IV SCH (09:27)
[2023-12-04] MEDS: AZITHROMYCIN 250 MG in DEXTROSE 5% 250 ML IV SCH (09:30)
[2023-12-04] MEDS: SODIUM CHLORIDE 0.9% 1,000 ML IV SCH (09:30)
[2023-12-04] MEDS: KETOROLAC TROMETHAMINE 15 MG/ML VIAL IV ONE ×2 (10:01→20:35)
--- NOTE | 2023-12-04 15:46 | Billing Data ---
Date of Service December 04, 2023 Coding Level of Care Code 70655 SUB INP/OBS CARE
[2023-12-04] MEDS: tiZANidine HCL 4 MG TABLET PO PRN (20:56)
[2023-12-05 06:55] LABS: Basophils # (auto) 0.05 K/uL (0.00-0.20); Basophils % (auto) 0.5 %; Eosinophils # (auto) 0.14 K/uL (0.00-0.50); Eosinophils % (auto) 1.5 %; Hematocrit (blood only) 39.7 % (42.0-52.0); Hemoglobin 12.2 g/dl (14.0-18.0); Immature Granulocytes # (auto) 0.08 K/uL (0.01-0.20); Immature Granulocytes % (auto) 0.9 %; Lymphocytes # (auto) 0.55 K/uL (1.20-3.40); Lymphocytes % (auto) 5.9 %; Mean Corpuscular Hemoglobin 29.7 pg (25.0-34.0); Mean Corpuscular Hgb Conc 30.7 g/dL (32.0-36.0); Mean Corpuscular Volume 96.6 fL (80.0-100.0); Monocytes # (auto) 0.62 K/uL (0.11-0.59); Monocytes % (auto) 6.7 %; Neutrophils # (auto) 7.87 K/uL (1.40-6.50); Neutrophils % (auto) 84.5 %; Platelet Count 138 K/uL (130-400); RDW Coefficient of Variation 14.9 % (11.5-14.5); RDW Standard Deviation 53.7 fL (36.4-46.3); Red Blood Count 4.11 M/uL (4.70-6.10); White Blood Count 9.31 K/ul (4.8-10.8)
[2023-12-05 06:58] LABS: BUN Creatinine Ratio 17.6 (10-20); Calcium 8.6 mg/dl (8.6-10.3); Est GFR (African American) 27.3 ml/min; Est GFR (Non-African American) 23.5 ml/min; Potassium 4.2 mmol/L (3.5-5.1)
--- NOTE | 2023-12-05 07:39 | Hospitalist Progress Note ---
Date of Service December 05, 2023 Assessment & Plan (1) Acute on chronic respiratory failure with hypoxia: Plan: 73 M with PMH including chronic venous insufficiency of bilateral lower extremity, chronic respiratory failure with hypoxia, buttock wound, lumbar facet joint syndrome, morbid obesity, peripheral neuropathy, BPH with LUTS, DM2 on insulin, CKD 4, GERD, CAD, SREEKANTH, who presented to the emergency room for weeks of progressive shortness of breath, dyspnea on exertion. Acute Hypoxic Respiratory Failure/COPD Exacerbation/SREEKANTH -Known COPD on 3 L of oxygen at home, maintenance daily Advair inhaler. -Lactate 4.0 in the ED (repeat 2.3). ABG pattern showing only mild hypoxia. BNP 62 on arrival, 118 < 12 hours later. -Suspect presentation is multifactorial: chronic physical deconditioning, right heart failure may be contributing more to presentation. -S/p Pulmicort (budesonide) inhaler on admission (vs. IV corticosteroid due to uncontrolled DM2). -Currently saturating high 95-97% on 3 L oxygen (on 3 L at home). * Started Breo Ellipta (Advair substitute), plus as needed DuoNebs, Pulmicort * IV azithromycin x 5 days, last dose 12/06 * Echo pending. Appreciate findings * O2 ventilatory support via nasal cannula. Consider nighttime CPAP * PT/OT evaluation pending. Appreciate dispo recs Left Lower Extremity Cellulitis/Perirectal Ulcer -Chronic lower extremity venous stasis, peripheral neuropathy (including neuropathic skin changes). -Perirectal ulcer is known. Follows with wound care. -S/p IV vancomycin, Zosyn on admission (x 1 dose each). Last MRSA nares screen negative (2019). -Patient afebrile since arrival. No other signs concerning for sepsis. Lower suspicion for bacteremia, gram-negative or otherwise at this time. -Urine, blood cultures collected pending. -Stopped Zosyn. Stopped IV vancomycin (May reorder if most recent MRSA nares ordered is positive). * IV ceftriaxone 2 g daily x 7 days. Last dose 12/08 * Wound care consult placed Type 2 diabetes -Chronic. On weekly Ozempic 1 mg, basal/bolus insulin regimen (NovoLog SQ 20 units 3 times daily with meals, Tresiba SQ 60 units nightly). -BSG 259-383 since admission. A.m. HgbA1c = 7.5% -Ozempic held, home insulin regimen adjusted (see below) * Glargine 40 units SQ nightly * SSI NovoLog (CF = 20, CR = 10, BSG range 120-160, ACHS checks) * Trend BSG EDILMA/CKD 4 -Baseline Cr: 1.82. Cr on admission 2.28. GFR still stage IV. Likely prerenal due to poor p.o. nutrition 2/2 ambulatory dysfunction. -S/p IV Lasix 20 mg in the ED. * Holding home lisinopril * Daily renal function panel Elevated Troponin/CAD/LE Edema/Hypertension -Chronically managed on aspirin, clopidogrel, furosemide, metoprolol tartrate. -Troponin 28.8, 2-hour repeat 25.8. * Continue home aspirin, Plavix, Lasix, metoprolol * Resume lisinopril once creatinine improves Chronic problems: -Hyperlipidemia: Atorvastatin 40 mg daily -BPH: Continue home finasteride 5 mg every morning -GERD: Famotidine 10 mg twice daily as needed -Lower back pain/spasticity: Tizanidine, acetaminophen, IV Zofran as needed. May consider spot doses of Dilaudid for additional pain Code: Full code Dispo: Med-Surg telemetry FEN/GI: Heart healthy/Carb consistent DVT Prophylaxis: Heparin 5000 u q12h PT/OT: Yes Consults: Wound care nurse (2) Acute exacerbation of chronic obstructive pulmonary disease (COPD): (3) Cellulitis of left lower extremity without foot: (4) Venous insufficiency of both lower extremities: (5) Edema: (6) Exertional shortness of breath: (7) Buttock wound: (8) BPH with obstruction/lower urinary tract symptoms: (9) Controlled type 2 diabetes mellitus with insulin therapy: (10) CKD (chronic kidney disease) stage 4, GFR 15-29 ml/min: (11) CAD (coronary artery disease): (12) Obstructive sleep apnea of adult: (13) Elevated troponin: Admission and Anticipated Discharge Date Admission Date: December 03, 2023 Results & Data Results & Data Vital Signs (Past 12 Hours) Vital Signs Temp Pulse Pulse Resp BP BP Pulse Ox 12/05/23 07:25 82 16 99 12/05/23 03:42 37 C 71 107/96 99 12/05/23 02:22 72 12/04/23 23:23 36.6 C 73 107/67 98 12/04/23 21:30 12/04/23 20:46 73 18 99 12/04/23 19:51 36.4 C L 71 119/71 98 O2 Del Method O2 Flow Rate 12/05/23 07:25 Nasal Cannula 3 12/05/23 03:42 Nasal Cannula 3 12/05/23 02:22 12/04/23 23:23 Nasal Cannula 3 12/04/23 21:30 Nasal Cannula 3 12/04/23 20:46 Nasal Cannula 3 12/04/23 19:51 Nasal Cannula 3 (11) CAD (coronary artery disease) Coronary Disease-Associated Artery/Lesion type: [place] artery [place] vs. transplanted heart: [place] heart Associated angina: without angina Qualified Code(s): I25.10 - Atherosclerotic heart disease of [place] coronary artery without angina pectoris
--- NOTE | 2023-12-05 08:07 | Hospitalist Progress Note ---
Date of Service December 05, 2023 Assessment & Plan (1) Acute on chronic respiratory failure with hypoxia: Plan: 73 year old M with complicated past medical history significant for chronic venous insufficiency of bilateral lower extremities, chronic respiratory failure with hypoxia, buttock wound, morbid obesity, peripheral neuropathy, DM2 on insulin, CKD 4, GERD, CAD, and SREEKANTH, who presented with weeks of shortness of breath and dyspnea on exertion. He feels much better this morning with his back pain under controlled. Acute Hypoxic Respiratory Failure/COPD Exacerbation/SREEKANTH -Known COPD on 3 L of oxygen at home and uses maintenance daily Advair inhaler. He has not needed any doses of DuoNebs or Pulmicort prn while here and oxygen saturation 100% this AM, so less suspicious for COPD exacerbation. -This could multifactorial; chronic physical deconditioning, obesity, obstructive sleep apnea, may all contribute to his clinical picture of difficulty breathing and shortness of breath. -Lactate 4.0 in the ED (repeat 2.3). ABG pattern showing only mild hypoxia. BNP 62 on arrival, 118 < 12 hours later. -Echo showed EF 55-60% with no significant valvular dysfunction. -Currently saturating 100% on 3 L oxygen via nasal cannula (on 3 L at home). * Finish IV azithromycin x 5 days, last dose will be 12/06 * Strongly recommend nighttime CPAP, consult case management * Skilled rehab after discharge Left Lower Extremity Cellulitis/Perirectal Ulcer -Chronic lower extremity venous stasis, peripheral neuropathy (including neuropathic skin changes). -Following with wound care for perirectal ulcer is known. -Doppler US negative for thrombosis and compression. -Patient afebrile since arrival and has no other signs concerning for sepsis. -Stopped Zosyn and vancomycin. -Blood cultures show no growth for 48 hours. -Urine culture showed no growth. * Finish IV ceftriaxone 2 g daily x 7 days, last dose will be 12/08 * Wound care consult pending Type 2 diabetes -Chronic, on weekly Ozempic 1 mg, basal/bolus insulin regimen of NovoLog SQ 20 units 3 times daily with meals, Tresiba SQ 60 units nightly. -Fasting glucose 145 mg/dl and POC glucose 139 this AM. -Continue holding Ozempic, home insulin regimen adjusted (see below) * Glargine 40 units SQ nightly * SSI NovoLog (CF = 20, CR = 10, BSG range 120-160, ACHS checks) * Trend BSG EDILMA/CKD 4 -Baseline Cr: 1.82. Cr on admission 2.28. GFR still stage IV. Likely prerenal EDILMA due to poor p.o. nutrition and ambulatory dysfunction. -Cr rising, 2.75 mg/dl this AM. * Echo reassuring, start NSS 125 mL * Holding home lisinopril * Daily renal function panel Elevated Troponin/CAD/LE Edema/Hypertension -Chronically managed on aspirin, clopidogrel, furosemide, metoprolol tartrate. -Troponin 28.8, 2-hour repeat 25.8. * Continue home aspirin, Plavix, and metoprolol * Resume lisinopril when creatinine improves * Discontinue Lasix, likely contributing to EDILMA and not showing signs of right sided CHF. Chronic problems: -Hyperlipidemia: Atorvastatin 40 mg daily -BPH: Continue home finasteride 5 mg every morning. -GERD: Famotidine 10 mg twice daily as needed -Lower back pain/spasticity, likely muscular: Tizanidine, acetaminophen, IV Zofran as needed. Patient refused acetaminophen yesterday, stating that it does not work for him * Consider topical lidocaine for pain control in the future Code: Full code Dispo: Med-Surg telemetry FEN/GI: Heart healthy/Carb consistent DVT Prophylaxis: Heparin 5000 u q12h PT/OT: Yes Consults: Wound care nurse (2) Acute exacerbation of chronic obstructive pulmonary disease (COPD): (3) Cellulitis of left lower extremity without foot: (4) Venous insufficiency of both lower extremities: (5) Edema: (6) Exertional shortness of breath: (7) Buttock wound: (8) BPH with obstruction/lower urinary tract symptoms: (9) Controlled type 2 diabetes mellitus with insulin therapy: (10) CKD (chronic kidney disease) stage 4, GFR 15-29 ml/min: (11) CAD (coronary artery disease): (12) Obstructive sleep apnea of adult: (13) Elevated troponin: Admission and Anticipated Discharge Date Admission Date: December 03, 2023 Supervising Physician Co-Signing Physician Notes I personally examined the patient and verified all dooley points of history and exam, discussed case, and agree with decision making with Dr Roque and M Torre MS2 awake and sitting in the chair. Back pain feeling much better. Notes that it is a chronic problem. Breathing doing betternotes that he just got noninvasive home ventilator about 2 weeks ago and has been wearinggotten used to itand has been wearing it every night with plans to continue. Fever - presenting complains. leg cellulitis and perirectal ulcer - Continue antibiotics and follow. Ongoing wound care EDILMA - creatinine baseline around 2.0. Given no decompensated CHF (and questionable chronic diastolic CHF historyI suspect it is predominantly venous stasis and COPD)suspect rising creatinine is prerenal from diureticsdiuretics held, gentle fluids given. follow. showing some improvement Resp distress- chronic. known severe copd. strongly suspect untreated SREEKANTH a driving factor as well -saturating well on baseline O2 needs. ABG reassuring, has just started noninvasive ventilator at homeencouraged strongly to continue. Low back pain - chronic. Appears to be predominantly biomechanicaldiscussed benefit of therapy now, and steady course of treatment with OMT as an outpatient after discharge. SQ heparin Subjective Patient is much more conversational and alert this AM. He reports feeling much better because his back pain has improved from the pain medications. He would like to figure out a good pain management plan for his back so he can participate in PT and ambulate. Results & Data Results & Data Vital Signs (Past 12 Hours) Vital Signs Temp Pulse Pulse Resp BP BP Pulse Ox 12/05/23 07:50 37.0 C 81 19 110/69 98 12/05/23 07:42 73 12/05/23 07:25 82 16 99 12/05/23 03:42 37 C 71 107/96 99 12/05/23 02:22 72 12/04/23 23:23 36.6 C 73 107/67 98 12/04/23 21:30 12/04/23 20:46 73 18 99 O2 Del Method O2 Flow Rate 12/05/23 07:50 Nasal Cannula 2 12/05/23 07:42 12/05/23 07:25 Nasal Cannula 3 12/05/23 03:42 Nasal Cannula 3 12/05/23 02:22 12/04/23 23:23 Nasal Cannula 3 12/04/23 21:30 Nasal Cannula 3 12/04/23 20:46 Nasal Cannula 3 (11) CAD (coronary artery disease) Associated angina: without angina Coronary Disease-Associated Artery/Lesion type: [place] artery [place] vs. transplanted heart: [place] heart Qualified Code(s): I25.10 - Atherosclerotic heart disease of [place] coronary artery without angina pectoris
--- NOTE | 2023-12-05 19:47 | Billing Data ---
Date of Service December 05, 2023 Coding Level of Care Code 30314 SUB INP/OBS CARE
[2023-12-06] MEDS: ACETAMINOPHEN 325 MG TAB PO PRN (03:52)
--- NOTE | 2023-12-06 07:36 | Hospitalist Progress Note ---
Date of Service December 06, 2023 Assessment & Plan (1) Acute on chronic respiratory failure with hypoxia: Plan: 73 year old M with complicated past medical history significant for chronic venous insufficiency of bilateral lower extremities, chronic respiratory failure with hypoxia, buttock wound, morbid obesity, peripheral neuropathy, DM2 on insulin, CKD 4, GERD, CAD, and SREEKANTH, who presented with weeks of shortness of breath and dyspnea on exertion. He feels much better this morning with his back pain under controlled. Acute Hypoxic Respiratory Failure/COPD Exacerbation/SREEKANTH -Known COPD on 3 L of oxygen at home and uses maintenance daily Advair inhaler. He has not needed any doses of DuoNebs or Pulmicort prn while here and oxygen saturation 100% this AM, so less suspicious for COPD exacerbation. -This could multifactorial; chronic physical deconditioning, obesity, obstructive sleep apnea, may all contribute to his clinical picture of difficulty breathing and shortness of breath. -Lactate 4.0 in the ED (repeat 2.3). ABG pattern showing only mild hypoxia. BNP 62 on arrival, 118 < 12 hours later. -Echo showed EF 55-60% with no significant valvular dysfunction. -Currently saturating 100% on 3 L oxygen via nasal cannula (on 3 L at home). * Finish IV azithromycin x 5 days, last dose will be 12/06 * Strongly recommend nighttime CPAP, consult case management * Skilled rehab after discharge, pending placement at this time. Left Lower Extremity Cellulitis/Perirectal Ulcer -Chronic lower extremity venous stasis, peripheral neuropathy (including neuropathic skin changes). -Following with wound care for perirectal ulcer is known. -Doppler US negative for thrombosis and compression. -Patient afebrile since arrival and has no other signs concerning for sepsis. -Stopped Zosyn and vancomycin. -Blood cultures show no growth for 48 hours. -Urine culture showed no growth. * Finish IV ceftriaxone 2 g daily x 7 days, last dose will be 12/08 * Continue wound care. Type 2 diabetes -Chronic, on weekly Ozempic 1 mg, basal/bolus insulin regimen of NovoLog SQ 20 units 3 times daily with meals, Tresiba SQ 60 units nightly. -Fasting glucose 145 mg/dl and POC glucose 139 this AM. -Continue holding Ozempic, home insulin regimen adjusted (see below) * Glargine 40 units SQ nightly * SSI NovoLog (CF = 20, CR = 10, BSG range 120-160, ACHS checks) * Trend BSG EDILMA/CKD 4 -Baseline Cr: 1.82. Cr on admission 2.28. GFR still stage IV. Likely prerenal EDILMA due to poor p.o. nutrition and ambulatory dysfunction. -Cr rising up to 2.75. * Echo reassuring, gentle fluids, resolved at this time. * Holding home lisinopril * Daily renal function panel Elevated Troponin/CAD/LE Edema/Hypertension -Chronically managed on aspirin, clopidogrel, furosemide, metoprolol tartrate. -Troponin 28.8, 2-hour repeat 25.8. * Continue home aspirin, Plavix, and metoprolol * Resume lisinopril when creatinine improves * Discontinue Lasix, no signs of congestive heart failure. Chronic problems: -Hyperlipidemia: Atorvastatin 40 mg daily -BPH: Continue home finasteride 5 mg every morning. -GERD: Famotidine 10 mg twice daily as needed -Lower back pain/spasticity, likely muscular: Tizanidine, acetaminophen, IV Zofran as needed. Patient refused acetaminophen yesterday, stating that it does not work for him * Consider topical lidocaine for pain control in the future Code: Full code Dispo: Med-Surg telemetry, pending placement at this time FEN/GI: Heart healthy/Carb consistent DVT Prophylaxis: Heparin 5000 u q12h PT/OT: Yes Consults: Wound care nurse (2) Acute exacerbation of chronic obstructive pulmonary disease (COPD): (3) Cellulitis of left lower extremity without foot: (4) Venous insufficiency of both lower extremities: (5) Edema: (6) Exertional shortness of breath: (7) Buttock wound: (8) BPH with obstruction/lower urinary tract symptoms: (9) Controlled type 2 diabetes mellitus with insulin therapy: (10) CKD (chronic kidney disease) stage 4, GFR 15-29 ml/min: (11) CAD (coronary artery disease): (12) Obstructive sleep apnea of adult: (13) Elevated troponin: Admission and Anticipated Discharge Date Admission Date: December 03, 2023 Supervising Physician Co-Signing Physician Notes I personally examined the patient and verified all dooley points of history and exam, discussed case, and agree with decision making with Dr Roque Sleeping sitting in the chair. No distress. No ability to transition to SNF today. Vitals noted. Resting comfortably. No distress. Breathing unlabored. No focal neurodeficits at rest. Skin without rashes pallor or icterus Fever - presenting complains. leg cellulitis and perirectal ulcer - Continue antibiotics and follow. Ongoing wound care EDILMA - creatinine baseline around 2.0. Given no decompensated CHF (and questionable chronic diastolic CHF historyI suspect it is predominantly venous stasis and COPD)suspect rising creatinine is prerenal from diureticsdiuretics held, gentle fluids given. follow. showing ongoing improvement Resp distress- chronic. known severe copd. strongly suspect untreated SREEKANTH a driving factor as well -saturating well on baseline O2 needs. ABG reassuring, has just started noninvasive ventilator at homeencouraged strongly to continue. Low back pain - chronic. Appears to be predominantly biomechanicaldiscussed benefit of therapy now, and steady course of treatment with OMT as an outpatient after discharge. SQ heparin for SNF once able Subjective Patient was seen bedside this morning. No new concerns or issues at this time. Back pain has significantly improved. Review of Systems Review of Systems: All systems reviewed & are unremarkable except as noted in Subjective Physical Exam Constitutional: WD/WN, vitals as above Respiratory: normal respiratory effort, lungs clear to auscultation Cardiovascular: Rate/Rhythm: regular rate and regular rhythm Bilateral pitting edema Skin: Edema, erythema, and xerosis of the lower extremities bilaterally, left greater than right. Painful to touch. Results & Data Results & Data Vital Signs (Past 12 Hours) Vital Signs Temp Pulse Pulse Resp BP Pulse Ox O2 Del Method 12/06/23 07:21 71 12/06/23 07:10 69 18 98 Nasal Cannula 12/06/23 03:56 36.8 C 74 22 124/77 97 Nasal Cannula 12/05/23 23:27 36.8 C 74 20 106/63 95 Nasal Cannula 12/05/23 22:00 77 12/05/23 21:00 Nasal Cannula 12/05/23 19:54 77 16 98 Nasal Cannula 12/05/23 19:46 37.1 C 77 20 134/90 98 Nasal Cannula O2 Flow Rate 12/06/23 07:21 12/06/23 07:10 2 12/06/23 03:56 2 12/05/23 23:27 12/05/23 22:00 12/05/23 21:00 2 12/05/23 19:54 2 12/05/23 19:46 (11) CAD (coronary artery disease) Associated angina: without angina Coronary Disease-Associated Artery/Lesion type: [place] artery [place] vs. transplanted heart: [place] heart Qualified Code(s): I25.10 - Atherosclerotic heart disease of [place] coronary artery without angina pectoris
[2023-12-06 08:19] LABS: Basophils # (auto) 0.06 K/uL (0.00-0.20); Basophils % (auto) 0.9 %; Eosinophils # (auto) 0.16 K/uL (0.00-0.50); Eosinophils % (auto) 2.4 %; Hematocrit (blood only) 36.3 % (42.0-52.0); Hemoglobin 11.4 g/dl (14.0-18.0); Immature Granulocytes # (auto) 0.28 K/uL (0.01-0.20); Immature Granulocytes % (auto) 4.2 %; Lymphocytes # (auto) 0.62 K/uL (1.20-3.40); Lymphocytes % (auto) 9.3 %; Mean Corpuscular Hemoglobin 29.9 pg (25.0-34.0); Mean Corpuscular Hgb Conc 31.4 g/dL (32.0-36.0); Mean Corpuscular Volume 95.3 fL (80.0-100.0); Mean Platelet Volume 9.5 fL (9.4-12.4); Monocytes # (auto) 0.59 K/uL (0.11-0.59); Monocytes % (auto) 8.8 %; Neutrophils # (auto) 4.98 K/uL (1.40-6.50); Neutrophils % (auto) 74.4 %; Platelet Count 153 K/uL (130-400); RDW Coefficient of Variation 14.7 % (11.5-14.5); RDW Standard Deviation 51.8 fL (36.4-46.3); Red Blood Count 3.81 M/uL (4.70-6.10); White Blood Count 6.69 K/ul (4.8-10.8)
[2023-12-06 08:37] LABS: BUN Creatinine Ratio 16.7 (10-20); Calcium 8.3 mg/dl (8.6-10.3); Creatinine Clr Calc Pharmacy 44.9 ml/min; Est GFR (African American) 36.9 ml/min; Est GFR (Non-African American) 31.8 ml/min; Potassium 4.3 mmol/L (3.5-5.1)
[2023-12-06] MEDS: ACETAMINOPHEN 325 MG TAB PO SCH (09:33)
[2023-12-06] MEDS: DICLOFENAC SOD 1% GEL 100 GM TUBE EXT SCH (09:34)
--- NOTE | 2023-12-06 19:04 | Billing Data ---
Date of Service December 06, 2023 Coding Level of Care Code 46038 SUB INP/OBS CARE
[2023-12-07 06:29] LABS: Hematocrit (blood only) 40.4 % (42.0-52.0); Hemoglobin 12.5 g/dl (14.0-18.0); Mean Corpuscular Hgb Conc 30.9 g/dL (32.0-36.0); Mean Corpuscular Volume 97.1 fL (80.0-100.0); Mean Platelet Volume 9.5 fL (9.4-12.4); Platelet Count 170 K/uL (130-400); RDW Coefficient of Variation 14.9 % (11.5-14.5); RDW Standard Deviation 53.6 fL (36.4-46.3); Red Blood Count 4.16 M/uL (4.70-6.10); White Blood Count 7.39 K/ul (4.8-10.8)
[2023-12-07 06:46] LABS: BUN Creatinine Ratio 14.9 (10-20); Calcium 8.8 mg/dl (8.6-10.3); Creatinine Clr Calc Pharmacy 45.8 ml/min; Est GFR (African American) 37.3 ml/min; Est GFR (Non-African American) 32.2 ml/min; Potassium 4.2 mmol/L (3.5-5.1)
--- NOTE | 2023-12-07 08:13 | Discharge Summary ---
Date of Service December 07, 2023 Admission HPI Per Admitting Provider The patient is a 73-year-old male with a past medical history including chronic venous insufficiency bilateral lower extremities, chronic respiratory failure with hypoxia, buttock wound, lumbar facet joint syndrome, morbid obesity, peripheral neuropathy, BPH with LUTS, diabetes mellitus on insulin, CKD stage IV, GERD, CAD, SREEKANTH, history of ureteral stones and stent placement and removal, diabetic gastroparesis, diabetic nephropathy, obesity hypoventilation syndrome and history of SBO. Patient presents to the emergency department as noted above. Admission Exam Per Admitting Provider The patient is awake, alert and oriented 3, well developed and well nourished, normocephalic and atraumatic, sitting upright in bed, with mild shortness of breath with conversation HEENT--PERRL, EOMI, mucous membranes and oropharynx dry. Neck--supple. No JVD. No bruits. Thyroid normal, trachea midline, no adenopathy. Heart--normal S1 and S2. No murmurs, rubs or gallops. Lungs--decreased breath sounds throughout. Mildly short of breath with conversation. No accessory muscle use. Abdomen--normal bowel sounds and soft. Nontender. Nondistended. Morbidly obese Extremities--1+ bilateral pretibial pitting edema, worse on the left. Dermatologic-moderate erythema and warmth of left lower extremity below the knee/anterior tibial length Neurologic--cranial nerves II through XII grossly intact. Rheumatologic--limited exam due to body habitus Psychiatric--normal affect. Principal Diagnosis Acute Hypoxic Respiratory Failure Discharge Exam Constitutional: WD/WN, vitals as above Respiratory: normal respiratory effort, lungs clear to auscultation Cardiovascular: Rate/Rhythm: regular rate and regular rhythm Bilateral pitting edema Skin: Edema, erythema, and xerosis of the lower extremities bilaterally, left greater than right. Painful to touch. Discharge Data Allergies Allergy/AdvReac Type Severity Reaction Status Date / Time No Known Allergies Allergy Verified 12/03/23 01:08 Consultations 12/03/23 01:56 ED Decision to Admit Stat Ordered Studies 12/03/23 09:30 US venous doppler LE Routine Hospital Course (1) Acute on chronic respiratory failure with hypoxia: 73 year old M with complicated past medical history significant for chronic venous insufficiency of bilateral lower extremities, chronic respiratory failure with hypoxia, buttock wound, morbid obesity, peripheral neuropathy, DM2 on insulin, CKD 4, GERD, CAD, and SREEKANTH, who presented with weeks of shortness of breath and dyspnea on exertion. He feels much better this morning with his back pain under controlled. Acute Hypoxic Respiratory Failure/COPD Exacerbation/SREEKANTH -Known COPD on 3 L of oxygen at home and uses maintenance daily Advair inhaler. He has not needed any doses of DuoNebs or Pulmicort prn while here and oxygen saturation 100% this AM, so less suspicious for COPD exacerbation. -This could multifactorial; chronic physical deconditioning, obesity, obstructive sleep apnea, may all contribute to his clinical picture of difficulty breathing and shortness of breath. -Lactate 4.0 in the ED (repeat 2.3). ABG pattern showing only mild hypoxia. BNP 62 on arrival, 118 < 12 hours later. -Echo showed EF 55-60% with no significant valvular dysfunction. -Currently saturating 100% on 3 L oxygen via nasal cannula (on 3 L at home). * Finish IV azithromycin x 5 days, last dose will be 12/06 * Skilled rehab after discharge, Left Lower Extremity Cellulitis/Perirectal Ulcer -Chronic lower extremity venous stasis, peripheral neuropathy (including neuropathic skin changes). -Following with wound care for perirectal ulcer is known. -Doppler US negative for thrombosis and compression. -Patient afebrile since arrival and has no other signs concerning for sepsis. -Stopped Zosyn and vancomycin. -Blood cultures show no growth for 48 hours. -Urine culture showed no growth. * Finish IV ceftriaxone 2 g daily x 5 days, cefdinir 300mg BID for 2 more days at time of discharge. * Continue wound care. Type 2 diabetes -Chronic, on weekly Ozempic 1 mg, basal/bolus insulin regimen of NovoLog SQ 20 units 3 times daily with meals, Tresiba SQ 60 units nightly. -Fasting glucose 145 mg/dl and POC glucose 139 this AM. -Continue holding Ozempic, home insulin regimen adjusted (see below) * resume home medications at time of discharge. EDILMA/CKD 4 -Baseline Cr: 1.82. Cr on admission 2.28. GFR still stage IV. Likely prerenal EDILMA due to poor p.o. nutrition and ambulatory dysfunction. -Cr rising up to 2.75. * Echo reassuring, gentle fluids, resolved at this time. * Holding home lisinopril * Daily renal function panel Elevated Troponin/CAD/LE Edema/Hypertension -Chronically managed on aspirin, clopidogrel, furosemide, metoprolol tartrate. -Troponin 28.8, 2-hour repeat 25.8. * Continue home aspirin, Plavix, and metoprolol * Resume lisinopril when creatinine improves * Discontinue Lasix, no signs of congestive heart failure. Chronic problems: -Hyperlipidemia: Atorvastatin 40 mg daily -BPH: Continue home finasteride 5 mg every morning. -GERD: Famotidine 10 mg twice daily as needed -Lower back pain/spasticity, likely muscular: Tizanidine, acetaminophen, IV Zofran as needed. Patient refused acetaminophen yesterday, stating that it does not work for him * Consider topical lidocaine for pain control in the future (2) Acute exacerbation of chronic obstructive pulmonary disease (COPD): (3) Cellulitis of left lower extremity without foot: (4) Venous insufficiency of both lower extremities: (5) Edema: (6) Exertional shortness of breath: (7) Buttock wound: (8) BPH with obstruction/lower urinary tract symptoms: (9) Controlled type 2 diabetes mellitus with insulin therapy: (10) CKD (chronic kidney disease) stage 4, GFR 15-29 ml/min: (11) CAD (coronary artery disease): (12) Obstructive sleep apnea of adult: (13) Elevated troponin: Total Time Total Time Spent Total Time Spent (In Minutes): <30 mins Discharge Plan Discharge Items Patient Disposition: Transfer Correction Fac Reason For Visit: COPD EX, LLE CELLULITIS Discharge Diagnosis: Acute on chronic respiratory failure with hypoxia Activity: Resume your previous activity Non-emergency contact: Primary Care Provider Call non-emergency contact if: you have any medication questions, your pain is concerning for you and your temperature is above 101.5 Follow-up/Referrals: Salas Valente DO [Primary Care Provider] - 12/15/23 12:00 pm Diet: Carb Consistent or DM2 and Heart Healthy Addtl Attending Provider Instructions: 73 year old M with complicated past medical history significant for chronic venous insufficiency of bilateral lower extremities, chronic respiratory failure with hypoxia, buttock wound, morbid obesity, peripheral neuropathy, DM2 on insulin, CKD 4, GERD, CAD, and SREEKANTH, who presented with weeks of shortness of breath and dyspnea on exertion. He feels much better this morning with his back pain under controlled. Acute Hypoxic Respiratory Failure/COPD Exacerbation/SREEKANTH -Known COPD on 3 L of oxygen at home and uses maintenance daily Advair inhaler. He has not needed any doses of DuoNebs or Pulmicort prn while here and oxygen saturation 100% this AM, so less suspicious for COPD exacerbation. -This could multifactorial; chronic physical deconditioning, obesity, obstructive sleep apnea, may all contribute to his clinical picture of difficulty breathing and shortness of breath. -Lactate 4.0 in the ED (repeat 2.3). ABG pattern showing only mild hypoxia. BNP 62 on arrival, 118 < 12 hours later. -Echo showed EF 55-60% with no significant valvular dysfunction. -Currently saturating 100% on 3 L oxygen via nasal cannula (on 3 L at home). * Finish IV azithromycin x 5 days, last dose will be 12/06 * Skilled rehab after discharge, Left Lower Extremity Cellulitis/Perirectal Ulcer -Chronic lower extremity venous stasis, peripheral neuropathy (including neuropathic skin changes). -Following with wound care for perirectal ulcer is known. -Doppler US negative for thrombosis and compression. -Patient afebrile since arrival and has no other signs concerning for sepsis. -Stopped Zosyn and vancomycin. -Blood cultures show no growth for 48 hours. -Urine culture showed no growth. * Finish IV ceftriaxone 2 g daily x 5 days, cefdinir 300mg BID for 2 more days at time of discharge. * Continue wound care. Type 2 diabetes -Chronic, on weekly Ozempic 1 mg, basal/bolus insulin regimen of NovoLog SQ 20 units 3 times daily with meals, Tresiba SQ 60 units nightly. -Fasting glucose 145 mg/dl and POC glucose 139 this AM. -Continue holding Ozempic, home insulin regimen adjusted (see below) * resume home medications at time of discharge. EDILMA/CKD 4 -Baseline Cr: 1.82. Cr on admission 2.28. GFR still stage IV. Likely prerenal EDILMA due to poor p.o. nutrition and ambulatory dysfunction. -Cr rising up to 2.75. * Echo reassuring, gentle fluids, resolved at this time. * Holding home lisinopril * Daily renal function panel Elevated Troponin/CAD/LE Edema/Hypertension -Chronically managed on aspirin, clopidogrel, furosemide, metoprolol tartrate. -Troponin 28.8, 2-hour repeat 25.8. * Continue home aspirin, Plavix, and metoprolol * Resume lisinopril when creatinine improves * Discontinue Lasix, no signs of congestive heart failure. Chronic problems: -Hyperlipidemia: Atorvastatin 40 mg daily -BPH: Continue home finasteride 5 mg every morning. -GERD: Famotidine 10 mg twice daily as needed -Lower back pain/spasticity, likely muscular: Tizanidine, acetaminophen, IV Zofran as needed. Patient refused acetaminophen yesterday, stating that it does not work for him * Consider topical lidocaine for pain control in the future Pending Studies at Discharge: No Stand-Alone Forms: My [facility] [employer] Skilled Items Patient informed of condition?: Yes DNR: No Discharge Level of Care: Skilled Communicable Disease: No Discharge Prognosis: Stable Lines: None Urinary Catheter: No Medications and DC Order Prescriptions: New cefdinir 300 mg capsule 300 mg PO Q12H 2 Days Qty: 4 0RF Continued nystatin 100,000 unit/gram cream 1 applic topical TID PRN (Reason: fungal rash) Qty: 30 11RF metoprolol tartrate [Lopressor] 100 mg tablet 100 mg PO BID Qty: 180 3RF atorvastatin 40 mg tablet 40 mg PO QAM Qty: 90 3RF finasteride [Proscar] 5 mg tablet 5 mg PO QAM Qty: 90 3RF Ozempic 1 mg/dose (4 mg/3 mL) pen injector 1 mg subcut WK 90 Days Qty: 9 3RF Rx Instructions: MONDAYS insulin aspart U-100 [Novolog FlexPen U-100 Insulin] 100 unit/mL (3 mL) insulin pen 100 unit subcut DAILY 90 Days Qty: 90 3RF insulin degludec [Tresiba FlexTouch U-200] 200 unit/mL (3 mL) insulin pen 60 unit subcut HS 90 Days Qty: 27 3RF docusate sodium 100 mg capsule 100 mg PO BID lisinopril 5 mg tablet 5 mg PO DAILY Qty: 90 3RF tizanidine 4 mg tablet 4 mg PO BID PRN (Reason: muscle spasticity) Qty: 30 1RF fluticasone propion-salmeterol [Advair Diskus] 250-50 mcg/dose blister with device 1 ea inhalation QAM (DME) FreeStyle Nidia 2 Sensor Kit See Rx Instructions .Route Rx Instructions: As directed mecobalamin (vitamin B12) 1,000 mcg tablet,chewable 1,000 mcg PO DAILY bupropion HCl 150 mg tablet sustained-release 12 hr 150 mg PO BID 90 Days Qty: 180 3RF clopidogrel 75 mg tablet 75 mg PO QAM Qty: 90 3RF gabapentin 400 mg capsule 400 mg PO BID Qty: 60 3RF cholecalciferol (vitamin D3) [Vitamin D3] 1,000 unit Tablet 1,000 unit PO BID aspirin 81 mg Tablet,Delayed Release (Dr/Ec) 81 mg PO QPM Lac-Hydrin Five 5 % Lotion 1 g EXT BID Qty: 5 0RF nystatin [Nystop] 100,000 unit/gram powder 1 applic EXT DAILY PRN (Reason: infection) Discontinued furosemide 20 mg tablet 40 mg PO QAM Discharge Orders: Discharge Order (Routine); Ordered 12/07/23 Ordered By: Tera Dee/Other Patient Handouts: Managing Type 2 Diabetes Admission Data Admit Date/Time: 12/03/23 02:49 Attending Provider: Ok Ruiz Admit Provider: Yossi Izaguirre Primary Care Provider: Salas Valente Other Providers: Yossi Izaguirre; [place],Care Other Interventions: Discharge Summary Assessment (RN) Last Done: 12/07/23 12:35 Supervising Physician Co-Signing Physician Notes I personally examined the patient and verified all dooley points of history and exam, discussed case, and agree with decision making with Dr Mya Wood. No distress. for snf today. Vitals noted. Resting comfortably. No distress. Breathing unlabored. No focal neurodeficits at rest. Skin without rashes pallor or icterus Fever - presenting complains. leg cellulitis and perirectal ulcer - Continue antibiotics and follow. Ongoing wound care EDILMA - creatinine baseline around 2.0. Given no decompensated CHF (and questionable chronic diastolic CHF historyI suspect it is predominantly venous stasis and COPD)suspect rising creatinine is prerenal from diureticsdiuretics held, gentle fluids given. improved. would hold off on diuretics unless showing acute volume overload/pulmonary edema. Resp distress- chronic. known severe copd. strongly suspect untreated SREEKANTH a driving factor as well -saturating well on baseline O2 needs. ABG reassuring, has just started noninvasive ventilator at homeencouraged strongly to continue. Low back pain - chronic. Appears to be predominantly biomechanicaldiscussed benefit of therapy now, and steady course of treatment with OMT as an outpatient after discharge. SQ heparin for SNF today
[2023-12-07] MEDS: POLYETHYLENE (MIRALAX) 17 GM PACK PO PRN (08:29)
--- NOTE | 2023-12-07 13:11 | Billing Data ---
Date of Service December 07, 2023 Coding Level of Care Code 67978 IN/OBS DISCH 30 MIN/LESS
== END 2023-12-07 15:14 | DRG 602 ==
LOC: ED 00:30 → SUATTDRO 02:49 → 4W 02:49
DX: E11.22 Type 2 diabetes mellitus with diabetic chronic kidney disease; K62.6 Ulcer of anus and rectum; L03.116 Cellulitis of left lower limb; Z79.82 Long term (current) use of aspirin; N17.9 Acute kidney failure, unspecified; N40.1 Benign prostatic hyperplasia with lower urinary tract symptoms; Z79.02 Long term (current) use of antithrombotics/antiplatelets; E66.2 Morbid (severe) obesity with alveolar hypoventilation; I87.8 Other specified disorders of veins; R79.89 Other specified abnormal findings of blood chemistry; Z79.85 Long-term (current) use of injectable non-insulin antidiabetic drugs; Z87.891 Personal history of nicotine dependence; Z79.4 Long term (current) use of insulin; J96.21 Acute and chronic respiratory failure with hypoxia; I12.9 Hypertensive chronic kidney disease with stage 1 through stage 4 chronic kidney disease, or unspecified chronic kidney disease; N18.4 Chronic kidney disease, stage 4 (severe); Z86.16 Personal history of COVID-19; E83.42 Hypomagnesemia; I25.10 Atherosclerotic heart disease of native coronary artery without angina pectoris; Z83.3 Family history of diabetes mellitus; E78.5 Hyperlipidemia, unspecified; E11.43 Type 2 diabetes mellitus with diabetic autonomic (poly)neuropathy; J44.1 Chronic obstructive pulmonary disease with (acute) exacerbation

== ENCOUNTER 2024-08-01 20:56 | Inpatient (IN) ==
--- NOTE | 2024-08-01 21:02 | Emergency Department Note ---
Impression & Plan Acute hypercapnic respiratory failure, Bilateral cellulitis of lower leg, Chronic hypoxic respiratory failure ED Provider Note NAME: ANNA DELGADO AGE: 73 SEX: M : 1950 ARRIVES VIA: Ambulance INFORMANT: Patient, ED PROVIDER(S): Alec Power MD CHIEF COMPLAINT: Lethargy, weakness, slurred speech MEDICAL DECISION MAKING: Patient presents for the above the patient does not complain of any slurred speech. IV was established and blood work was obtained. Chest x-ray also performed. No obvious pneumonia. Patient with a normal white count hemoglobin and platelet count. Patient was ordered IV Zosyn given concern for lower extremity cellulitis patient did have a lactate and blood cultures also ordered. The patient's kidney function is unremarkable. Initial blood gas with pH of 7.23 pCO2 of 109. Sodium normal. Bicarb is elevated at 42. Creatinine of 2.04 which is chronic and around the patient's baseline. Lactate not elevated. Troponin of 20 patient denies any chest pain or shortness of breath. Patient was placed on BiPAP due to concerns for his hypercapnic respiratory failure. Do believe that this is likely the cause of the patient's reported slurred speech. Patient is also lethargic and weak and the patient's hypercapnia may also be contributory. I did speak the on-call hospitalist service Dr. King. I also did update the patient as well as family member at bedside they are comfortable plan of care. Critical Care: I have personally spent 52 minutes of critical care time in direct management of this patient. This includes bedside care, interpretation of diagnostic studies, and testing, discussion with consultants, patient, and family members, and other require inpatient management activities. This 52 minutes is in excess of all separately billable procedures. Discussion w/ other healthcare providers: Dr. King inpatient medicine service Prior /Outside records reviewed: None Differential diagnosis: Infection, dehydration, metabolic abnormality, hypo/hyperglycemia, electrolyte imbalance, anemia, UTI, pneumonia, thyroid dysfunction among others were considered. Diagnostics, as interpreted by me: ECG:Sinus bradycardia, rate of 57, normal intervals, normal axis no ST elevations. Possible T wave inversion in lead III. Cardiac monitoring: An order was placed for continuous cardiac monitoring. The monitor shows a rate of 62 with sinus rhythm. Patient was placed on pulse oximetry Medical decision rules: None Imaging studies: I informally interpreted the patient's chest x-ray without obvious pneumonia or pneumothorax with formal report to follow. HPI: Patient presents due to concern for increasing weakness and lethargy. There were reports that the patient may have some associated slurred speech but when asked the patient does not notice that he has a change in speech. Patient denies any CPAP use. Patient denies any chest pains or shortness of breath no nausea or vomiting. Patient does use chronic oxygen at all times. PAST MEDICAL HISTORY: See Below PAST SURGICAL HISTORY: See Below SOCIAL HISTORY: See Below HOME MEDICATIONS: See Below ALLERGIES: See Below VITALS: See Below PHYSICAL EXAMINATION: GENERAL: NAD, non-toxic. BMI of 39 EYE EXAM: Normal conjunctiva. PERRL, no anisocoria and EOM's grossly intact w/o pain. OROPHARYNX: Moist mucus membranes, grossly normal dentition. NECK: Trachea midline, no stridor. Supple, no nuchal rigidity, no adenopathy, non-tender. No signs of meningismus. FROM of the neck with good chin to chest and neck extension. LUNGS: Clear to auscultation. Normal chest wall mechanics. HEART: NSR, no MRG. ABDOMEN: Abdomen soft, non-tender, no masses, no rebound or guarding. BACK: No CVA TTP. SKIN: No rashes and no bruising. UPPER EXTREMITIES: Upper extremities are grossly normal. LOWER EXTREMITIES: Likely chronic venous stasis changes with some associated cellulitic change mild pallor and blanching redness noted bilaterally. NEURO EXAM: Awake and alert follows commands, cranial nerves II-XII grossly intact, normal speech, moves all 4 extremities. Past Med/Surg History Problem List (Updated 08/05/24 @ 08:57 by Alec Power MD) Chronic hypoxic respiratory failure (Acute) Bilateral cellulitis of lower leg (Acute) Acute hypercapnic respiratory failure (Acute) BPH loc w urin obs/LUTS Sacroiliitis Open wound of buttock Perianal abscess Obesity Buttock wound Elevated troponin Edema Venous insufficiency of both lower extremities Exertional shortness of breath Chronic respiratory failure with hypoxia Abnormal chest CT Lumbar facet joint syndrome Morbid obesity with BMI of 40.0-44.9, adult Low back pain Neuropathy feet Numbness and tingling of both feet Lumbosacral radiculopathy BPH with obstruction/lower urinary tract symptoms Controlled type 2 diabetes mellitus with insulin therapy CKD (chronic kidney disease) stage 4, GFR 15-29 ml/min (Acute) Baseline creatinine has been 2.0-3.0 mg/dL, follows with [facility] Hypoxia COPD (chronic obstructive pulmonary disease) (Acute) Severe, per pulm- 2L N/C prn Depression GERD (gastroesophageal reflux disease) CAD (coronary artery disease) Acute CT 03/2011, complicated by 3 episodes of v fib requiring electrical shock- ZITA x2 Obstructive sleep apnea of adult Patient refuses CPAP. 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, with long-term current use of insulin Diabetic nephropathy Diabetic gastroparesis Wound of toenail Onychomycosis Normocytic anemia Acute exacerbation of chronic obstructive pulmonary disease (COPD) (Acute) Obesity hypoventilation syndrome Vitamin B12 deficiency (Unknown) Venous stasis dermatitis of both lower extremities Maddie rash of groin (Acute) Hidradenitis suppurativa of left axilla Fungal dermatitis (Acute) Non-healing wound HTN (hypertension), benign Uncontrolled type 2 diabetes mellitus with diabetic neuropathy, with long-term current use of insulin Medical History Respiratory failure Cellulitis of left lower extremity without foot Buttock wound Urinary symptom or sign Surgical wound, non healing Open wound of perineum Acute on chronic respiratory failure with hypoxia and hypercapnia Acute on chronic respiratory failure with hypoxia Decubitus ulcer of left buttock Perineal abscess Bilateral lower leg cellulitis Non-ST elevation CT (NSTEMI) Chest pain Acute respiratory failure with hypoxia and hypercapnia Pneumonia Acidosis Sepsis Uncontrolled type 2 diabetes mellitus, with long-term current use of insulin Immunization counseling Rash Conjunctivitis, left eye SBO (small bowel obstruction) hx and resolved no surgery Umbilical hernia Nausea, vomiting and diarrhea Acute distention of stomach DVT prophylaxis Lesion of adrenal gland 4.5 cm R, 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 2 drug- eluting stents placed at that time (2010) and mild residual nonocclusive disease. follows with Dr. 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 Man saw him last week Hyperkalemia History of CT (myocardial infarction) Acute CT 03/2011, complicated by 3 episodes of v fib requiring electrical shock- ZITA x2 On home oxygen therapy 2L N/C prn UTI (urinary tract infection) none at present Nephrolithiasis Admitted to [facility] for 7 mm L ureteral stone causing hydronephrosis/EDILMA Hypophosphatemia Surgical History S/P ureteral stent placement History of rectal surgery (12/15/22) p Rectal Exam Under Anesthesia, Fistulotomy(Not Applicable) - Demetrius Regan MD, FACS Biopsy of fistulous tract Hx of surgical procedure Perineal abscess History of lithotripsy x several History of carpal tunnel release right History of colonoscopy Colonoscopy: 03/18/19: MAC sedation at [facility] History of bilateral cataract extraction S/P cystoscopy with ureteral stent placement mulitple---last 04/16/20, 03/05/2020 08/23/2018. MAC. No issues. Hx of transurethral resection of prostate History of tooth extraction History of cardiac cath 2011- stents x2 Family History Mother Family history of diabetes mellitus Coronary heart disease CT Father Coronary heart disease CT Myocardial infarction Other No family history of adverse response to anesthesia Denies family history of Ovarian cancer Prostate cancer Breast cancer Colorectal cancer Social History Smoking Status: Former smoker Tobacco Type: Cigarettes Age Started Using Tobacco: 16; Age Quit Using Tobacco: 62; Cigarettes Per Day: 20-30 a day; Second Hand Exposure: No; Do You Dip or Chew Tobacco: No; Hx Alcohol Use: No Hx Substance Use: No Preferred Language: [place] Zealander Communication Ability: Effective Visual Impairment: Limited Hearing Ability: Normal Cloth Classer Required: No Beliefs That Will Affect Care: None marital status: Current Living Situation: Spouse current occupational status: retired How many Children do You have: 3 How many Children do You have Comment: able to assist with care as needed. Feels Safe at Home: Yes Childhood Exposure to Second-Hand Smoke: Yes Diet: regular caffeine: Yes (Tea and soda 2 cups daily) during the past year weight has: remained stable Dental Care, Regularly: Yes Physical Activity Frequency: Does not Exercise Seatbelt Use: sometimes Sunscreen Use: No Assistive Devices: Bedside Commode, Walker and Wheelchair Allergies Allergies Allergy/AdvReac Type Severity Reaction Status Date / Time No Known Allergies Allergy Verified 07/24/24 10:58 Home Meds Home Medications Medication Instructions Recorded Confirmed cholecalciferol (vitamin D3) 25 1,000 unit PO BID 08/22/18 08/01/24 mcg (1,000 unit) tablet (Vitamin D3) aspirin 81 mg tablet,delayed 81 mg PO QPM 06/08/20 08/01/24 release docusate sodium 100 mg capsule 100 mg PO HS 09/22/22 08/01/24 flash glucose sensor (FreeStyle 12/05/22 08/01/24 Nidia 2 Sensor kit) mecobalamin (vitamin B12) 1,000 1,000 mcg PO QAM 07/07/23 08/01/24 mcg chewable tablet fluticasone fur. 100 mcg-umeclid 1 inh inhalation QAM 07/10/24 08/01/24 62.5 mcg-vilant 25 mcg inhalat.powder (Trelegy Ellipta) ammonium lactate 5 % lotion 1 g EXT BID PRN Dry Skin 08/01/24 08/01/24 (Lac-Hydrin Five) gabapentin 400 mg capsule 400 mg PO AMHS 08/01/24 08/01/24 insulin aspart U-100 100 unit/mL 50 unit subcut AMHS 08/01/24 08/01/24 (3 mL) subcutaneous pen (Novolog FlexPen U-100 Insulin aspart) Previous Rx's Medication Instructions Recorded clopidogrel 75 mg tablet 75 mg PO QAM #90 tabs 07/07/23 finasteride 5 mg tablet (Proscar) 5 mg PO QAM #90 tabs 10/12/23 insulin degludec 200 unit/mL (3 60 unit (0.3 mL) subcut HS 90 days 12/04/23 mL) subcutaneous pen (Tresiba #27 mL FlexTouch U-200 insulin) semaglutide 1 mg/dose (4 mg/3 mL) 1 mg (0.75 mL) subcut WK 90 days 12/04/23 subcutaneous pen injector (Ozempic) #9 mL metoprolol tartrate 100 mg tablet 100 mg PO BID #180 tabs 04/12/24 (Lopressor) atorvastatin 40 mg tablet 40 mg PO QAM #90 tabs 07/05/24 bupropion HCl 150 mg tablet,12 hr 150 mg PO BID 90 days #180 ea 07/29/24 sustained-release Results & Data (ED) Vital Signs Vital Signs - 24 hr 08/01/24 21:03 08/01/24 21:07 08/01/24 21:07 Temperature 36.7 C Temperature Source Oral Pulse Rate 56 L 58 L Pulse Rate [Apical] Pulse Rhythm Regular Pulse Rhythm [Apical] Pulse Strength Normal Pulse Strength [Apical] Respiratory Rate 18 Respiratory Effort / Characteristics Non-Labored Spontaneous Respiratory Depth Normal Respiratory Pattern Regular Blood Pressure 168/84 H Blood Pressure [Right Arm] Blood Pressure Mean 112 Blood Pressure Mean [Right Arm] Blood Pressure Position Semi-fowlers Blood Pressure Position [Right Arm] Pulse Oximetry 96 96 Oxygen Delivery Method Nasal Cannula Nasal Cannula Oxygen Flow Rate 4 Fraction of Inspired Oxygen Sepsis Recent Fever Within 48 Hours No Sepsis New/Unexplained Change in Mental Status N/A Sepsis Action Taken by Nursing No Action Required 08/01/24 21:07 08/01/24 21:07 08/01/24 21:35 Temperature 36.7 C Temperature Source Oral Pulse Rate 58 L 53 L Pulse Rate [Apical] 58 L Pulse Rhythm Regular Pulse Rhythm [Apical] Regular Pulse Strength Pulse Strength [Apical] Normal Respiratory Rate 18 18 25 H Respiratory Effort / Characteristics Non-Labored Spontaneous Non-Labored Spontaneous Respiratory Depth Normal Normal Respiratory Pattern Regular Regular Blood Pressure Blood Pressure [Right Arm] 168/84 H Blood Pressure Mean Blood Pressure Mean [Right Arm] 112 Blood Pressure Position Blood Pressure Position [Right Arm] Semi-fowlers Pulse Oximetry 96 96 100 Oxygen Delivery Method Nasal Cannula Nasal Cannula Oxygen Flow Rate 4 4 Fraction of Inspired Oxygen 30 Sepsis Recent Fever Within 48 Hours Sepsis New/Unexplained Change in Mental Status Sepsis Action Taken by Nursing 08/01/24 21:42 08/01/24 22:00 08/01/24 23:00 Temperature Temperature Source Pulse Rate Pulse Rate [Apical] 57 L 58 L 52 L Pulse Rhythm Pulse Rhythm [Apical] Regular Regular Regular Pulse Strength Pulse Strength [Apical] Normal Normal Normal Respiratory Rate 18 18 18 Respiratory Effort / Characteristics Non-Labored Spontaneous Non-Labored Spontaneous Non-Labored Spontaneous Respiratory Depth Normal Normal Normal Respiratory Pattern Regular Regular Regular Blood Pressure Blood Pressure [Right Arm] 166/99 H 167/79 H 142/102 H Blood Pressure Mean Blood Pressure Mean [Right Arm] 121 108 115 Blood Pressure Position Blood Pressure Position [Right Arm] Semi-fowlers Semi-fowlers Semi-fowlers Pulse Oximetry 100 99 99 Oxygen Delivery Method Room Air Nasal Cannula CPAP Oxygen Flow Rate 4 Fraction of Inspired Oxygen Sepsis Recent Fever Within 48 Hours Sepsis New/Unexplained Change in Mental Status Sepsis Action Taken by Nursing 08/02/24 00:17 08/02/24 00:33 Temperature Temperature Source Pulse Rate 91 H 63 Pulse Rate [Apical] Pulse Rhythm Pulse Rhythm [Apical] Pulse Strength Pulse Strength [Apical] Respiratory Rate 26 H 18 Respiratory Effort / Characteristics Non-Labored Spontaneous Respiratory Depth Normal Respiratory Pattern Regular Blood Pressure 124/65 Blood Pressure [Right Arm] Blood Pressure Mean 84 Blood Pressure Mean [Right Arm] Blood Pressure Position Blood Pressure Position [Right Arm] Pulse Oximetry 98 100 Oxygen Delivery Method Oxygen Flow Rate Fraction of Inspired Oxygen 28 Sepsis Recent Fever Within 48 Hours Sepsis New/Unexplained Change in Mental Status Sepsis Action Taken by Group Home Medications Current Medication List: was personally reviewed by me Laboratory Data Attestation: I reviewed the patient's lab results. 08/04/24 06:24 08/04/24 06:24 Lab Results 08/01/24 08/01/24 08/01/24 Range/Units 21:13 21:17 21:23 WBC 8.09 (4.8-10.8) K/ul RBC 4.96 (4.70-6.10) M/uL Hgb 14.8 (14.0-18.0) g/dl POC Hgb 17.0 (14.0-18.0) g/dl Hct 49.7 (42.0-52.0) % POC Hct 50 (42-52) % MCV 100.2 H (80.0-100.0) fL MCH 29.8 (25.0-34.0) pg MCHC 29.8 L (32.0-36.0) g/dL RDW Std Deviation 55.5 H (36.4-46.3) fL RDW Coeff of Cirilo 14.9 H (11.5-14.5) % Plt Count 147 (130-400) K/uL MPV 10.2 (9.4-12.4) fL Immature Gran % (Auto) 0.9 % Neut % (Auto) 74.9 % Lymph % (Auto) 11.1 % Stearns % (Auto) 10.0 % Eos % (Auto) 2.5 % Baso % (Auto) 0.6 % Neut # (Auto) 6.06 (1.40-6.50) K/uL Lymph # (Auto) 0.90 L (1.20-3.40) K/uL Stearns # (Auto) 0.81 H (0.11-0.59) K/uL Eos # (Auto) 0.20 (0.00-0.50) K/uL Baso # (Auto) 0.05 (0.00-0.20) K/uL Immature Gran # (Auto) 0.07 (0.01-0.20) K/uL VBG pH 7.23 L (7.36-7.41) VBG pCO2 109 H (38-50) mmHg VBG pO2 23 mmHg VBG HCO3 46 mmol/L VBG O2 Saturation < 60.0 % VBG Base Excess 12.6 mEq/L POC Sodium 146 H (135-144) mmol/L Sodium 145 (136-145) mmol/L POC Potassium 4.1 (3.3-5.0) mmol/L Potassium 4.1 (3.5-5.1) mmol/L POC Chloride 98 L (101-112) mmol/L Chloride 100 (98-107) mmol/L Carbon Dioxide 42 H* (21-32) mmol/L POC Total CO2 39 H (24-31) mmol/L Anion Gap 3 (3-11) POC Anion Gap 13.0 L (16-25) mmol/L POC BUN 26 H (7-18) mg/dl BUN 23 (6-23) mg/dl Creatinine 2.04 H (0.6-1.4) mg/dl POC Creatinine 1.9 H (0.6-1.3) mg/dl Est Cr Clr Drug Dosing 45.7 ml/min eGFR 34.20 BUN/Creatinine Ratio 11.3 (10-20) Glucose 207 H (70-99(Fasting)) mg/dl POC Glucose (other) 198 H (70-99) mg/dl Estimat Average Glucose 174 mg/dl Hemoglobin A1c 7.7 H (4.5-5.6) % Lactate 1.0 (0.4-2.0) mmol/L Calcium 9.1 (8.6-10.3) mg/dl POC Ioniz Calcium Annita 1.19 (1.12-1.32) mmol/l Magnesium 2.1 (1.7-2.4) mg/dl Total Bilirubin 0.4 (0.2-1.0) mg/dl Direct Bilirubin 0.0 (0-0.2) mg/dl AST 12 L (13-39) U/L ALT 16 (7-52) U/L Alkaline Phosphatase 121 H (34-104) U/L Troponin I High Sens 20.7 H (0-20) pg/ml B-Natriuretic Peptide 152 H (0-100) pg/ml Total Protein 7.1 (6.0-8.3) gm/dl Albumin 3.8 (3.4-5.0) gm/dl Procalcitonin 0.08 (0-0.5) ng/ml Administered Medications Aspirin (Aspirin 81 Mg Ectab) 81 mg PO QPM [facility] Stop: 09/01/24 20:59 Last Admin: 08/04/24 20:47 Dose: 81 mg Documented By: Admin: 08/03/24 21:16 Dose: 81 mg Documented By: Admin: 08/02/24 21:50 Dose: 81 mg Documented By: SORAIDA Atorvastatin Calcium (Atorvastatin 40 Mg Tab) 40 mg PO [facility] Stop: 09/01/24 08:59 Last Admin: 08/05/24 08:40 Dose: 40 mg Documented By: Admin: 08/04/24 07:58 Dose: 40 mg Documented By: Admin: 08/03/24 08:30 Dose: 40 mg Documented By: Admin: 08/02/24 09:15 Dose: 40 mg Documented By: Bumetanide (Bumetanide 1 Mg Tab) 1 mg PO [facility] Stop: 09/03/24 08:59 Last Admin: 12/09/24 08:41 Dose: 1 mg Documented By: Admin: 08/04/24 08:56 Dose: 1 mg Documented By: HEIDY Bupropion HCl (Bupropion Sr 150 Mg Tabcr) 150 mg PO BID [facility] Stop: 09/01/24 08:59 Last Admin: 08/05/24 08:39 Dose: 150 mg Documented By: Admin: 08/04/24 20:47 Dose: 150 mg Documented By: Admin: 08/04/24 07:55 Dose: 150 mg Documented By: Admin: 08/03/24 21:17 Dose: 150 mg Documented By: Admin: 08/03/24 08:30 Dose: 150 mg Documented By: Admin: 08/02/24 21:50 Dose: 150 mg Documented By: Admin: 08/02/24 09:15 Dose: 150 mg Documented By: Cephalexin HCl (Cephalexin 500 Mg Cap) 500 mg PO QID [facility]; Protocol Stop: 08/09/24 16:59 Last Admin: 08/05/24 08:40 Dose: 500 mg Documented By: Admin: 08/04/24 20:48 Dose: 500 mg Documented By: Admin: 08/04/24 17:03 Dose: 500 mg Documented By: Admin: 08/04/24 13:29 Dose: 500 mg Documented By: Admin: 08/04/24 07:55 Dose: 500 mg Documented By: Admin: 08/03/24 21:17 Dose: 500 mg Documented By: Admin: 08/03/24 17:00 Dose: 500 mg Documented By: Admin: 08/03/24 12:08 Dose: 500 mg Documented By: Admin: 08/03/24 08:30 Dose: 500 mg Documented By: Admin: 08/02/24 21:50 Dose: 500 mg Documented By: Admin: 08/02/24 16:50 Dose: 500 mg Documented By: Clopidogrel Bisulfate (Clopidogrel Bisulfate 75 Mg Tab) 75 mg PO QAM [facility] Stop: 09/01/24 08:59 Last Admin: 08/05/24 08:40 Dose: 75 mg Documented By: Admin: 08/04/24 07:55 Dose: 75 mg Documented By: Admin: 08/03/24 08:31 Dose: 75 mg Documented By: Admin: 08/02/24 09:15 Dose: 75 mg Documented By: Docusate Sodium (Docusate Sodium 100 Mg Cap) 100 mg PO HS [facility] Stop: 09/01/24 20:59 Last Admin: 08/04/24 20:47 Dose: 100 mg Documented By: Admin: 08/03/24 21:16 Dose: 100 mg Documented By: Admin: 08/02/24 21:50 Dose: 100 mg Documented By: SORAIDA Finasteride (Finasteride 5 Mg Tab) 5 mg PO QAM [facility] Stop: 09/01/24 08:59 Last Admin: 08/05/24 08:41 Dose: 5 mg Documented By: Admin: 08/04/24 07:55 Dose: 5 mg Documented By: Admin: 08/03/24 08:30 Dose: 5 mg Documented By: Admin: 08/02/24 09:15 Dose: 5 mg Documented By: Fluticasone Furoate (Fluticasone Furoate 100mcg 14 Puffs/Inhaler) [facility] Stop: 09/01/24 08:59 Last Admin: 08/05/24 08:39 Dose: 1 puffs Documented By: Admin: 08/04/24 07:59 Dose: 1 puffs Documented By: Admin: 08/03/24 08:30 Dose: 1 puffs Documented By: Admin: 08/02/24 09:14 Dose: 1 puffs Documented By: Gabapentin (Gabapentin 400 Mg Cap) 400 mg PO BID [facility] Stop: 09/01/24 08:59 Last Admin: 08/05/24 08:39 Dose: 400 mg Documented By: Admin: 08/04/24 20:48 Dose: 400 mg Documented By: Admin: 08/04/24 07:55 Dose: 400 mg Documented By: Admin: 08/03/24 21:16 Dose: 400 mg Documented By: Admin: 08/03/24 08:31 Dose: 400 mg Documented By: Admin: 08/02/24 21:50 Dose: 400 mg Documented By: Admin: 08/02/24 09:15 Dose: 400 mg Documented By: Heparin Sodium (Porcine) (Heparin Sod 5,000 Unit/0.5 Ml Vial) 5,000 units SQ Q8 [facility] Stop: 09/01/24 05:59 Last Admin: 08/05/24 05:54 Dose: 5,000 units Documented By: Admin: 08/04/24 21:16 Dose: 5,000 units Documented By: Admin: 08/04/24 13:31 Dose: 5,000 units Documented By: Admin: 08/04/24 05:07 Dose: 5,000 units Documented By: Admin: 08/03/24 21:16 Dose: 5,000 units Documented By: Admin: 08/03/24 14:28 Dose: Not Given Documented By: Admin: 08/03/24 06:22 Dose: 5,000 units Documented By: Admin: 08/02/24 21:50 Dose: 5,000 units Documented By: Admin: 08/02/24 13:59 Dose: 5,000 units Documented By: Admin: 08/02/24 05:44 Dose: 5,000 units Documented By: PHOENIXI Insulin Aspart (Insulin Aspart Per Unit Charge) 0 units SC ACHS [facility] Stop: 09/01/24 07:29 Last Admin: 08/05/24 08:38 Dose: 8 units Documented By: HARSHAL Co-signed By: KRISTEN Admin: 08/04/24 21:24 Dose: 6 units Documented By: OK Co-signed By: PATRICIA Admin: 08/04/24 16:54 Dose: 6 units Documented By: CMV Co-signed By: KRISTEN Admin: 08/04/24 11:52 Dose: 12 units Documented By: HEIDY Co-signed By: ÁNGEL Admin: 08/04/24 08:03 Dose: 5 units Documented By: HEIDY Co-signed By: NIA Admin: 08/03/24 21:14 Dose: 1 units Documented By: SORAIDA Co-signed By: JARRETT Admin: 08/03/24 16:59 Dose: 13 units Documented By: Co-signed By: BARRY Admin: 08/03/24 12:07 Dose: 6 units Documented By: Co-signed By: TOMI Admin: 08/03/24 08:29 Dose: 6 units Documented By: Co-signed By: TOMI Admin: 08/02/24 21:44 Dose: Not Given Documented By: Admin: 08/02/24 16:49 Dose: 6 units Documented By: Co-signed By: SUZETTE Admin: 08/02/24 11:54 Dose: 8 units Documented By: Co-signed By: SUZETTE Admin: 08/02/24 08:30 Dose: 8 units Documented By: Co-signed By: SUZETTE Insulin Glargine (Lantus Per Unit Charge) 15 units SQ BID [facility] Stop: 09/03/24 20:59 Last Admin: 08/05/24 08:38 Dose: 15 units Documented By: HARSHAL Co-signed By: KRISTEN Admin: 08/04/24 21:24 Dose: 15 units Documented By: OK Co-signed By: PATRICIA Metoprolol Tartrate (Metoprolol Tartrate 100 Mg Tab) 100 mg PO BID [facility] Stop: 09/01/24 08:59 Last Admin: 08/04/24 20:47 Dose: 100 mg Documented By: Admin: 08/04/24 07:58 Dose: Not Given Documented By: Admin: 08/03/24 21:16 Dose: 100 mg Documented By: Admin: 08/03/24 08:31 Dose: 100 mg Documented By: Admin: 08/02/24 21:50 Dose: 100 mg Documented By: Admin: 08/02/24 09:15 Dose: 100 mg Documented By: GER Umeclidinium/Vilanterol (Umeclidinium/Vilanterol 62.5/25mcg 7 Puffs/Inhaler) 1 puffs INH DAILY [facility] Stop: 09/01/24 08:59 Last Admin: 08/05/24 08:38 Dose: 1 puffs Documented By: Admin: 08/04/24 07:59 Dose: 1 puffs Documented By: Admin: 08/03/24 08:30 Dose: 1 puffs Documented By: Admin: 08/02/24 09:14 Dose: 1 puffs Documented By: Discontinued Medications Albuterol (Albut/Ipratrop 3mg/0.5mg Neb 3 Ml Vial) 3 ml NEB Q4R [facility]; Protocol Stop: 09/01/24 03:20 Last Admin: 08/03/24 06:59 Dose: 3 ml Documented By: Admin: 08/03/24 03:03 Dose: 3 ml Documented By: Admin: 08/02/24 22:35 Dose: 3 ml Documented By: Admin: 08/02/24 19:00 Dose: Not Given Documented By: Admin: 08/02/24 14:13 Dose: 3 ml Documented By: Admin: 08/02/24 10:51 Dose: 3 ml Documented By: Admin: 08/02/24 07:31 Dose: 3 ml Documented By: Admin: 08/02/24 04:21 Dose: 3 ml Documented By: ARNULFO Piperacillin Sod/Tazobactam Sod (Zosyn) 4.5 gm in 100 mls @ 200 mls/hr IV NOW STA Stop: 08/01/24 21:36 Last Infusion: 08/01/24 22:20 Dose: Infused Documented By: Admin: 08/01/24 21:42 Dose: 200 mls/hr Documented By: IDElke Bumetanide 0.5 mg/ Syringe 2 mls @ 4 mls/min IV ONE ONE Stop: 08/03/24 09:14 Last Admin: 08/03/24 10:11 Dose: 4 mls/min Documented By: Insulin Glargine (Lantus Per Unit Charge) 10 units SQ BID KAYLEEN Stop: 09/01/24 08:59 Last Admin: 08/04/24 08:03 Dose: 10 units Documented By: AMS Co-signed By: AAL Admin: 08/03/24 21:15 Dose: 10 units Documented By: SORAIDA Co-signed By: CTA Admin: 08/03/24 08:29 Dose: 10 units Documented By: Co-signed By: MH Admin: 08/02/24 21:50 Dose: 10 units Documented By: SORAIDA Co-signed By: DAH Admin: 08/02/24 09:12 Dose: 10 units Documented By: Co-signed By: CA Imaging Data Radiologist's Impression: Chest X-Ray 08/01/24 21:07 Exam(s): XR CXR 1 VIEW EXAM: XR Chest, 1 View CLINICAL HISTORY: Reason for exam: Sepsis. TECHNIQUE: Frontal views of the chest. COMPARISON: 12/03/2023. FINDINGS: Exam is limited. Lungs: No consolidation. Pleural space: No pleural effusion is seen. No pneumothorax. Heart: The heart is top normal in size.. Mediastinum: There is mild uncoiling of thoracic aorta. Bones/joints: There are degenerative changes in the spine. IMPRESSION: Limited exam. No acute pulmonary disease. Electronically signed by: Dami Doyle MD 08/01/24 23:42 PM Discharge Plan Visit Data Chief Complaint: Weakness Stated Complaint: Weakness, Lethargic, Edema ED Provider: Alec Power Discharge Problem: Acute hypercapnic respiratory failure, Bilateral cellulitis of lower leg, Chronic hypoxic respiratory failure Patient Disposition: Admitted As Inpatient Discharge Instructions Interventions: ED Discharge Assessment Last Done: 08/02/24 02:10
[2024-08-01 21:25] LABS: Base Excess VBG 12.6 mEq/L; HCO3 VBG 46 mmol/L; Oxygen Saturation VBG < 60.0 %; PCO2 VBG 109 mmHg (38-50); PO2 VBG 23 mmHg; pH VBG 7.23 (7.36-7.41)
[2024-08-01] MEDS: PIPERACILLIN/TAZOBACTAM 4.5 GM/100 ML BAG IV STA (21:42)
[2024-08-01 21:45] LABS: iSTAT Creatinine 1.9 mg/dl (0.6-1.3); iSTAT Ionized Calcium 1.19 mmol/l (1.12-1.32); iSTAT Potassium 4.1 mmol/L (3.3-5.0)
[2024-08-01 21:56] LABS: Albumin Level 3.8 gm/dl (3.4-5.0); BUN Creatinine Ratio 11.3 (10-20); Bilirubin,Total 0.4 mg/dl (0.2-1.0); Calcium 9.1 mg/dl (8.6-10.3); Creatinine Clr Calc Pharmacy 45.7 ml/min; Magnesium 2.1 mg/dl (1.7-2.4); Potassium 4.1 mmol/L (3.5-5.1); Total Protein 7.1 gm/dl (6.0-8.3)
[2024-08-01 22:00] LABS: Troponin I High Sensitivity 20.7 pg/ml (0-20)
[2024-08-01 22:32] LABS: Basophils # (auto) 0.05 K/uL (0.00-0.20); Basophils % (auto) 0.6 %; Eosinophils % (auto) 2.5 %; Hematocrit (blood only) 49.7 % (42.0-52.0); Hemoglobin 14.8 g/dl (14.0-18.0); Immature Granulocytes # (auto) 0.07 K/uL (0.01-0.20); Immature Granulocytes % (auto) 0.9 %; Lymphocytes % (auto) 11.1 %; Mean Corpuscular Hemoglobin 29.8 pg (25.0-34.0); Mean Corpuscular Hgb Conc 29.8 g/dL (32.0-36.0); Mean Corpuscular Volume 100.2 fL (80.0-100.0); Mean Platelet Volume 10.2 fL (9.4-12.4); Monocytes # (auto) 0.81 K/uL (0.11-0.59); Neutrophils # (auto) 6.06 K/uL (1.40-6.50); Neutrophils % (auto) 74.9 %; Platelet Count 147 K/uL (130-400); RDW Coefficient of Variation 14.9 % (11.5-14.5); RDW Standard Deviation 55.5 fL (36.4-46.3); Red Blood Count 4.96 M/uL (4.70-6.10); White Blood Count 8.09 K/ul (4.8-10.8)
--- NOTE | 2024-08-01 23:12 | History & Physical Report ---
Date of Service August 01, 2024 Assessment & Plan (1) Acute on chronic respiratory failure with hypoxia and hypercapnia: Plan: 73yo male with history of severe COPD, SREEKANTH, diastolic HF presenting with one week of progressive SOB as well as episodes of confusion and hallucinations. Patient with acute on chronic respiratory failure with hypercapnia upon arrival 7.23/109/23. Patient was managed with BiPAP - repeat VBG with minimal improvement 7.27/102/<20. Patient was reevaluated several times while in the ER - improving mental state, more awake and alert when seen at 01:00 Uncertain cause of patient's clinical decline - possible non-compliance with CPAP, inability to ventilate leading to hypercapnia. No obvious sign of pneumonia - WBC and Procalcitonin are unremarkable. Patient does endorse some worsening bilateral LE edema - mild increase in BNP - does not seem overly volume overloaded on exam. No wheezing. Respiratory biofire panel is negative. -Admit to PCU -Awaiting UA -Check PO4 and replete if needed -Check LLE venous doppler - per note review, patient with baseline asymmetry, however, with LLE being larger -Continue BiPAP, wean as tolerated -Continue supplemental O2 - patient uses 3L continuous - goal saturation 90-92% -DuoNeb q 4 hours -Albuterol PRN -Repeat ABG in AM (2) CAD (coronary artery disease): Plan: Chronic. Patient with CAD s/p ZITA x 2 in RCA. He follows with Dr. Vazquez of Cardiology. No complaint of chest pain. Mild troponin elevation 20.7 on arrival, improved on repeat -Continue ASA -Continue Plavix -Continue Atorvastatin -Continue metoprolol 100mg po BID (3) COPD (chronic obstructive pulmonary disease): Plan: Patient with severe COPD. Follows with Pulmonary. No wheeze on exam. -Continue Trelegy or formulary equivalent -DuoNebs q 4 hours -Albuterol q 2 hours PRN -Continue BiPAP, wean as tolerated -Continue supplemental O2 (4) Controlled type 2 diabetes mellitus with insulin therapy: Plan: Patient follows with [facility]. Elevated blood sugar at present at 198 -Lantus 10u BID -ISS -Continue Neurontin for neuropathic pain (5) Depression: Plan: Chronic. Stable -Continue Bupropion 150mg po BID (6) BPH loc w urin obs/LUTS: Plan: Chronic. Patient follows with Urology -Continue Finasteride -Bladder scan and straight cath as needed Plan F/E/N - Saline lock. Electrolytes WNL, DM/AHA diet as tolerated Ppx - Heparin 5000u TID Code - Full per discussion with patient Dispo - Admit to PCU History of Present Illness Chief Complaint: weakness, confusion, SOB Primary Care Provider: Salas Valente DO Adonis Stephenson is a 73yo male with history of chronic respiratory failure with hypoxia and hypercapnia secondary to severe COPD on 3L supplemental O2 at home, SREEKANTH unable to tolerate CPAP at home and HFpEF, diastolic dysfunction as well as CAD, DM, BPH presenting from home with one week of progressive shortness of breath as well as generalized weakness, lethargy and worsening shortness of breath. is at bedside and supplements history - she reports that patient has had intermittent confusion and hallucinations over the last week as well. They also note worsening bilateral LE edema L > R. No report of chest pain, palpitations, fever, chills, cough, nausea, vomiting, diarrhea. Normal UOP with no dysuria. His was ill two weeks ago with a very bad URI. Was recently given samples of Gemtasa for treatment of overactive bladder. Upon arrival to the ER patient somnolent but arousable. VBG as noted with acute on chronic hypercapnic respiratory failure. He was placed on BiPAP. ER Course: Zosyn 4.5gm Allergies Allergy/AdvReac Type Severity Reaction Status Date / Time No Known Allergies Allergy Verified 07/24/24 10:58 Home Medications Medication Instructions Recorded Confirmed Type cholecalciferol (vitamin D3) 25 1,000 unit PO BID 08/22/18 08/01/24 History mcg (1,000 unit) tablet (Vitamin D3) aspirin 81 mg tablet,delayed 81 mg PO QPM 06/08/20 08/01/24 History release docusate sodium 100 mg capsule 100 mg PO HS 09/22/22 08/01/24 History flash glucose sensor (FreeStyle 12/05/22 08/01/24 History Nidia 2 Sensor kit) clopidogrel 75 mg tablet 75 mg PO QAM #90 tabs 07/07/23 08/01/24 Rx mecobalamin (vitamin B12) 1,000 1,000 mcg PO QAM 07/07/23 08/01/24 History mcg chewable tablet finasteride 5 mg tablet (Proscar) 5 mg PO QAM #90 tabs 10/12/23 08/01/24 Rx insulin degludec 200 unit/mL (3 60 unit (0.3 mL) subcut HS 90 days 12/04/23 08/01/24 Rx mL) subcutaneous pen (Tresiba #27 mL FlexTouch U-200 insulin) semaglutide 1 mg/dose (4 mg/3 mL) 1 mg (0.75 mL) subcut WK 90 days 12/04/23 08/01/24 Rx subcutaneous pen injector (Ozempic) #9 mL metoprolol tartrate 100 mg tablet 100 mg PO BID #180 tabs 04/12/24 08/01/24 Rx (Lopressor) atorvastatin 40 mg tablet 40 mg PO QAM #90 tabs 07/05/24 08/01/24 Rx fluticasone fur. 100 mcg-umeclid 1 inh inhalation QAM 07/10/24 08/01/24 History 62.5 mcg-vilant 25 mcg inhalat.powder (Trelegy Ellipta) bupropion HCl 150 mg tablet,12 hr 150 mg PO BID 90 days #180 ea 07/29/24 08/01/24 Rx sustained-release ammonium lactate 5 % lotion 1 g EXT BID PRN Dry Skin 08/01/24 08/01/24 History (Lac-Hydrin Five) gabapentin 400 mg capsule 400 mg PO AMHS 08/01/24 08/01/24 History insulin aspart U-100 100 unit/mL 50 unit subcut AMHS 08/01/24 08/01/24 History (3 mL) subcutaneous pen (Novolog FlexPen U-100 Insulin aspart) Past Med/Surg History Problem List (Updated 08/02/24 @ 00:57 by Brunilda King DO) BPH loc w urin obs/LUTS Sacroiliitis Open wound of buttock Perianal abscess Obesity Buttock wound Elevated troponin Edema Venous insufficiency of both lower extremities Exertional shortness of breath Chronic respiratory failure with hypoxia Abnormal chest CT Lumbar facet joint syndrome Morbid obesity with BMI of 40.0-44.9, adult Low back pain Neuropathy feet Numbness and tingling of both feet Lumbosacral radiculopathy BPH with obstruction/lower urinary tract symptoms Controlled type 2 diabetes mellitus with insulin therapy CKD (chronic kidney disease) stage 4, GFR 15-29 ml/min (Acute) Baseline creatinine has been 2.0-3.0 mg/dL, follows with [facility] Hypoxia COPD (chronic obstructive pulmonary disease) (Acute) Severe, per pulm- 2L N/C prn Depression GERD (gastroesophageal reflux disease) CAD (coronary artery disease) Acute VT 03/2011, complicated by 3 episodes of v fib requiring electrical shock- ZITA x2 Obstructive sleep apnea of adult Patient refuses CPAP. 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, with long-term current use of insulin Diabetic nephropathy Diabetic gastroparesis Wound of toenail Onychomycosis Normocytic anemia Acute exacerbation of chronic obstructive pulmonary disease (COPD) (Acute) Obesity hypoventilation syndrome Vitamin B12 deficiency (Unknown) Venous stasis dermatitis of both lower extremities Maddie rash of groin (Acute) Hidradenitis suppurativa of left axilla Fungal dermatitis (Acute) Non-healing wound HTN (hypertension), benign Uncontrolled type 2 diabetes mellitus with diabetic neuropathy, with long-term current use of insulin Medical History (Updated 08/02/24 @ 00:57 by Brunilda King DO) Respiratory failure Cellulitis of left lower extremity without foot Buttock wound Urinary symptom or sign Surgical wound, non healing Open wound of perineum Acute on chronic respiratory failure with hypoxia and hypercapnia Acute on chronic respiratory failure with hypoxia Decubitus ulcer of left buttock Perineal abscess Bilateral lower leg cellulitis Non-ST elevation VT (NSTEMI) Chest pain Acute respiratory failure with hypoxia and hypercapnia Pneumonia Acidosis Sepsis Uncontrolled type 2 diabetes mellitus, with long-term current use of insulin Immunization counseling Rash Conjunctivitis, left eye SBO (small bowel obstruction) hx and resolved no surgery Umbilical hernia Nausea, vomiting and diarrhea Acute distention of stomach DVT prophylaxis Lesion of adrenal gland 4.5 cm R, likely myelolipoma to CTA report 09/2022 Physical debility uses wheelchair > can walk a few steps CAD (coronary artery disease) coronary artery disease with prior VT complicated by V-fib arrest. 2 drug- eluting stents placed at that time (2010) and mild residual nonocclusive disease. follows with Dr. 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 Man saw him last week Hyperkalemia History of VT (myocardial infarction) Acute VT 03/2011, complicated by 3 episodes of v fib requiring electrical shock- ZITA x2 On home oxygen therapy 2L N/C prn UTI (urinary tract infection) none at present Nephrolithiasis Admitted to [facility] for 7 mm L ureteral stone causing hydronephrosis/EDILMA Hypophosphatemia Surgical History S/P ureteral stent placement History of rectal surgery (12/15/22) p Rectal Exam Under Anesthesia, Fistulotomy(Not Applicable) - Demetrius Regan MD, FACS Biopsy of fistulous tract Hx of surgical procedure Perineal abscess History of lithotripsy x several History of carpal tunnel release right History of colonoscopy Colonoscopy: 03/18/19: MAC sedation at [facility] History of bilateral cataract extraction S/P cystoscopy with ureteral stent placement mulitple---last 04/16/20, 03/05/2020 08/23/2018. MAC. No issues. Hx of transurethral resection of prostate History of tooth extraction History of cardiac cath 2010- stents x2 Family History Mother Family history of diabetes mellitus Coronary heart disease [place] Father Coronary heart disease [place] Myocardial infarction Other No family history of adverse response to anesthesia Denies family history of Ovarian cancer Prostate cancer Breast cancer Colorectal cancer Social History Smoking Status: Never smoker Tobacco Type: Cigarettes Age Started Using Tobacco: 16; Age Quit Using Tobacco: 62; Cigarettes Per Day: 20-30 a day; Second Hand Exposure: No; Do You Dip or Chew Tobacco: No; Hx Alcohol Use: No Hx Substance Use: No Preferred Language: Burmese Communication Ability: Effective Visual Impairment: Limited Hearing Ability: Normal Health Services Rn Required: No Beliefs That Will Affect Care: None marital status: Current Living Situation: Spouse current occupational status: retired How many Children do You have: 3 How many Children do You have Comment: able to assist with care as needed. Feels Safe at Home: Yes Childhood Exposure to Second-Hand Smoke: Yes Diet: regular caffeine: Yes (Tea and soda 2 cups daily) during the past year weight has: remained stable Dental Care, Regularly: Yes Physical Activity Frequency: Does not Exercise Seatbelt Use: sometimes Sunscreen Use: No Assistive Devices: Bedside Commode, Walker and Wheelchair Review of Systems Review of Systems: All systems reviewed & are unremarkable except as noted in HPI & below Physical Exam Physical Exam: General: patient resting comfortably, BiPAP in place, arousable and answers questions appropriately, follows commands Skin: skin thickening and discoloration of bilateral LE, redness bilaterally to knees HEENT: NC/AT, PERRL, EOMI, anicteric sclera, conjunctiva without injection, external ear normal to inspection and nontender, nares patent, moist mucus membranes, dentition intact, no oropharyngeal lesions, neck supple, trachea midline, no LAD, no thyromegaly, no JVD Heart: +S1/S2, regular, no m/r/g Lungs: equal air entry bilaterally, no rales/rhonchi/wheezes, BiPAP in place with adequate TV Abd: Obese +BS, soft, NT/ND, no masses/organomegaly/ascites Ext: warm, 2+ pulses in UE/LE bilaterally, +Edema of bilateral LE L > R with chronic venous stasis changes, tenderness with palpation of LLE Neuro: nonfocal, patient AA&O x 4, speech intact, no facial droop, moving all extremities on command with equal strength 5/5 Results & Data Results & Data Vital Signs (Past 12 Hours) Vital Signs Temp Pulse Pulse Resp BP BP Pulse Ox 08/01/24 22:00 58 L 18 167/79 H 99 08/01/24 21:42 57 L 18 166/99 H 100 08/01/24 21:07 58 L 18 96 08/01/24 21:07 36.7 C 58 L 18 168/84 H 96 08/01/24 21:07 96 08/01/24 21:07 36.7 C 58 L 18 168/84 H 96 08/01/24 21:03 56 L O2 Del Method O2 Flow Rate 08/01/24 22:00 Nasal Cannula 4 08/01/24 21:42 Room Air 08/01/24 21:07 Nasal Cannula 4 08/01/24 21:07 Nasal Cannula 4 08/01/24 21:07 Nasal Cannula 08/01/24 21:07 Nasal Cannula 4 08/01/24 21:03 Laboratory Results Laboratory Results WBC 8.09 K/ul (4.8-10.8) 08/01/24 21:13 RBC 4.96 M/uL (4.70-6.10) 08/01/24 21:13 Hgb 14.8 g/dl (14.0-18.0) 08/01/24 21:13 POC Hgb 17.0 g/dl (14.0-18.0) 08/01/24 21:23 Hct 49.7 % (42.0-52.0) 08/01/24 21:13 POC Hct 50 % (42-52) 08/01/24 21:23 MCV 100.2 fL (80.0-100.0) H 08/01/24 21:13 MCH 29.8 pg (25.0-34.0) 08/01/24 21:13 MCHC 29.8 g/dL (32.0-36.0) L 08/01/24 21:13 RDW Std Deviation 55.5 fL (36.4-46.3) H 08/01/24 21:13 RDW Coeff of Cirilo 14.9 % (11.5-14.5) H 08/01/24 21:13 Plt Count 147 K/uL (130-400) 08/01/24 21:13 MPV 10.2 fL (9.4-12.4) 08/01/24 21:13 Immature Gran % (Auto) 0.9 % 08/01/24 21:13 Neut % (Auto) 74.9 % 08/01/24 21:13 Lymph % (Auto) 11.1 % 08/01/24 21:13 [place] % (Auto) 10.0 % 08/01/24 21:13 Eos % (Auto) 2.5 % 08/01/24 21:13 Baso % (Auto) 0.6 % 08/01/24 21:13 Neut # (Auto) 6.06 K/uL (1.40-6.50) 08/01/24 21:13 Lymph # (Auto) 0.90 K/uL (1.20-3.40) L 08/01/24 21:13 [place] # (Auto) 0.81 K/uL (0.11-0.59) H 08/01/24 21:13 Eos # (Auto) 0.20 K/uL (0.00-0.50) 08/01/24 21:13 Baso # (Auto) 0.05 K/uL (0.00-0.20) 08/01/24 21:13 Immature Gran # (Auto) 0.07 K/uL (0.01-0.20) 08/01/24 21:13 VBG pH 7.27 (7.36-7.41) L 08/01/24 23:16 VBG pCO2 102 mmHg (38-50) H 08/01/24 23:16 VBG pO2 < 20 mmHg 08/01/24 23:16 VBG HCO3 47 mmol/L 08/01/24 23:16 VBG O2 Saturation < 60.0 % 08/01/24 23:16 VBG Base Excess 15.0 mEq/L 08/01/24 23:16 POC Sodium 146 mmol/L (135-144) H 08/01/24 21:23 Sodium 145 mmol/L (136-145) 08/01/24 21:13 POC Potassium 4.1 mmol/L (3.3-5.0) 08/01/24 21:23 Potassium 4.1 mmol/L (3.5-5.1) 08/01/24 21:13 POC Chloride 98 mmol/L (101-112) L 08/01/24 21:23 Chloride 100 mmol/L (98-107) 08/01/24 21:13 Carbon Dioxide 42 mmol/L (21-32) H* 08/01/24 21:13 POC Total CO2 39 mmol/L (24-31) H 08/01/24 21:23 Anion Gap 3 (3-11) 08/01/24 21:13 POC Anion Gap 13.0 mmol/L (16-25) L 08/01/24 21:23 POC BUN 26 mg/dl (7-18) H 08/01/24 21:23 BUN 23 mg/dl (6-23) 08/01/24 21:13 Creatinine 2.04 mg/dl (0.6-1.4) H 08/01/24 21:13 POC Creatinine 1.9 mg/dl (0.6-1.3) H 08/01/24 21:23 Est Cr Clr Drug Dosing 45.7 ml/min 08/01/24 21:13 eGFR 34.20 08/01/24 21:13 BUN/Creatinine Ratio 11.3 (10-20) 08/01/24 21:13 Glucose 207 mg/dl (70-99(Fasting)) H 08/01/24 21:13 POC Glucose (other) 198 mg/dl (70-99) H 08/01/24 21:23 Lactate 1.0 mmol/L (0.4-2.0) 08/01/24 21:17 Calcium 9.1 mg/dl (8.6-10.3) 08/01/24 21:13 POC Ioniz Calcium Annita 1.19 mmol/l (1.12-1.32) 08/01/24 21:23 Phosphorus 2.8 mg/dl (2.5-4.9) 08/01/24 23:16 Magnesium 2.1 mg/dl (1.7-2.4) 08/01/24 21:13 Total Bilirubin 0.4 mg/dl (0.2-1.0) 08/01/24 21:13 Direct Bilirubin 0.0 mg/dl (0-0.2) 08/01/24 21:13 AST 12 U/L (13-39) L 08/01/24 21:13 ALT 16 U/L (7-52) 08/01/24 21:13 Alkaline Phosphatase 121 U/L (34-104) H 08/01/24 21:13 Troponin I High Sens 16.4 pg/ml (0-20) D 08/01/24 23:16 B-Natriuretic Peptide 152 pg/ml (0-100) H 08/01/24 21:13 Total Protein 7.1 gm/dl (6.0-8.3) 08/01/24 21:13 Albumin 3.8 gm/dl (3.4-5.0) 08/01/24 21:13 Procalcitonin 0.08 ng/ml (0-0.5) 08/01/24 21:13 Adenovirus (PCR) Not Detected (NotDetected) 08/01/24 23:20 B. pertussis DNA (PCR) Not Detected (NotDetected) 08/01/24 23:20 B.parapertussis DNA PCR Not Detected (NotDetected) 08/01/24 23:20 C. pneumoniae DNA (PCR) Not Detected (NotDetected) 08/01/24 23:20 Coronavirus OC43 (PCR) Not Detected (NotDetected) 08/01/24 23:20 Coronavirus HKU1 (PCR) Not Detected (NotDetected) 08/01/24 23:20 Coronavirus 229E (PCR) Not Detected (NotDetected) 08/01/24 23:20 SARS-CoV-2 (PCR) Not Detected (NotDetected) 08/01/24 23:20 Coronavirus NL63 (PCR) Not Detected (NotDetected) 08/01/24 23:20 Human Metapneumovir PCR Not Detected (NotDetected) 08/01/24 23:20 Influenza Type A (PCR) Not Detected (NotDetected) 08/01/24 23:20 Influenza Type B (PCR) Not Detected (NotDetected) 08/01/24 23:20 M. pneumoniae (PCR) Not Detected (NotDetected) 08/01/24 23:20 Parainfluenza 1 (PCR) Not Detected (NotDetected) 08/01/24 23:20 Parainfluenza 2 (PCR) Not Detected (NotDetected) 08/01/24 23:20 Parainfluenza 3 (PCR) Not Detected (NotDetected) 08/01/24 23:20 Parainfluenza 4 (PCR) Not Detected (NotDetected) 08/01/24 23:20 RSV (PCR) Not Detected (NotDetected) 08/01/24 23:20 Entero/Rhino (PCR) Not Detected (NotDetected) 08/01/24 23:20 Impressions Chest X-Ray 08/01/24 21:07 Exam(s): XR CXR 1 VIEW EXAM: XR Chest, 1 View CLINICAL HISTORY: Reason for exam: Sepsis. TECHNIQUE: Frontal views of the chest. COMPARISON: 12/03/2023. FINDINGS: Exam is limited. Lungs: No consolidation. Pleural space: No pleural effusion is seen. No pneumothorax. Heart: The heart is top normal in size.. Mediastinum: There is mild uncoiling of thoracic aorta. Bones/joints: There are degenerative changes in the spine. IMPRESSION: Limited exam. No acute pulmonary disease. Electronically signed by: Dami Doyle MD 08/01/24 23:42 PM Code Status & VTE Plan VTE Prophylaxis Plan VTE Prophylaxis will be ordered: Yes PG Care Time/CCT Total # of Minutes Spent Total Time Spent with Patient: Total time spent is greater than 50% in coordination of care (as documented) at patient's floor/unit and/or counseling patient: Coding Level of Care Code 94933 INT INP/OBS CARE 3/75MIN Diagnoses Acute on chronic respiratory failure with hypoxia and hypercapnia J96.21; J96.22 Coronary artery disease involving pamunkey coronary artery of pamunkey heart without angina pectoris I25.10 Associated angina: without angina Coronary Disease-Associated Artery/Lesion type: [place]key artery [place] vs. transplanted heart: pam[place]key heart Pulmonary emphysema, unspecified emphysema type J44.9 COPD type: unspecified COPD Controlled type 2 diabetes mellitus with insulin therapy E11.9; Z79.4 Depression, unspecified depression type F32.9 Depression Type: unspecified BPH loc w urin obs/LUTS N40.1 (2) CAD (coronary artery disease) Associated angina: without angina Coronary Disease-Associated Artery/Lesion type: [place] artery [place] vs. transplanted heart: [place] heart Qualified Code(s): I25.10 - Atherosclerotic heart disease of [place] coronary artery without angina pectoris (3) COPD (chronic obstructive pulmonary disease) COPD type: unspecified COPD Qualified Code(s): J44.9 - Chronic obstructive pulmonary disease, unspecified (5) Depression Depression Type: unspecified Qualified Code(s): F32.9 - Major depressive disorder, single episode, unspecified
[2024-08-01 23:20] LABS: HCO3 VBG 47 mmol/L; Oxygen Saturation VBG < 60.0 %; PCO2 VBG 102 mmHg (38-50); PO2 VBG < 20 mmHg; pH VBG 7.27 (7.36-7.41)
[2024-08-01 23:42] LABS: Phosphorus 2.8 mg/dl (2.5-4.9)
--- NOTE | 2024-08-01 23:43 | XRay Report ---
Exam(s): XR CXR 1 VIEW EXAM: XR Chest, 1 View CLINICAL HISTORY: Reason for exam: Sepsis. TECHNIQUE: Frontal views of the chest. COMPARISON: 12/03/2023. FINDINGS: Exam is limited. Lungs: No consolidation. Pleural space: No pleural effusion is seen. No pneumothorax. Heart: The heart is top normal in size.. Mediastinum: There is mild uncoiling of thoracic aorta. Bones/joints: There are degenerative changes in the spine. IMPRESSION: Limited exam. No acute pulmonary disease. Electronically signed by: Dami Doyle MD 08/01/24 23:42 PM
[2024-08-02 00:12] LABS: Troponin I High Sensitivity 16.4 pg/ml (0-20)
[2024-08-02 00:20] LABS: Adenovirus PCR Not Detected (NotDetected); Bordetella parapertussis PCR Not Detected (NotDetected); Bordetella pertussis PCR Not Detected (NotDetected); Chlamydia pneumoniae PCR Not Detected (NotDetected); Coronavirus 229E PCR Not Detected (NotDetected); Coronavirus CoV-2 (COVID19)PCR Not Detected (NotDetected); Coronavirus HKU1 PCR Not Detected (NotDetected); Coronavirus NL63 PCR Not Detected (NotDetected); Coronavirus OC43PCR Not Detected (NotDetected); Human Metapneumovirus PCR Not Detected (NotDetected); Influenza A PCR Not Detected (NotDetected); Influenza B PCR Not Detected (NotDetected); Mycoplasma pneumoniae PCR Not Detected (NotDetected); Parainfluenza Virus 1 PCR Not Detected (NotDetected); Parainfluenza Virus 2 PCR Not Detected (NotDetected); Parainfluenza Virus 3 PCR Not Detected (NotDetected); Parainfluenza Virus 4 PCR Not Detected (NotDetected); Respiratory Syncytial VirusPCR Not Detected (NotDetected); Rhinovirus/Enterovirus PCR Not Detected (NotDetected)
[2024-08-02] MEDS ORDERED: CARBOHYDRATES FOR HYPOGLYCEMIA PO PRN (03:21)
[2024-08-02] MEDS ORDERED: GLUCAGON FOR INJ 1 MG VIAL SQ PRN (03:21)
[2024-08-02] MEDS ORDERED: GLUCOSE 10 TAB/TUBE PO PRN (03:21)
[2024-08-02] MEDS ORDERED: ALBUTEROL 0.5% NEB SOLN 2.5 MG/0.5 ML VIAL NEB PRN (03:21)
[2024-08-02] MEDS ORDERED: GLUCOSE 40% GEL 15 GM TUBE PO PRN (03:21)
[2024-08-02] MEDS ORDERED: ONDANSETRON INJ 2 MG/ML 2 ML VIAL IV PRN (03:21)
[2024-08-02] MEDS ORDERED: DEXTROSE 50% 50 ML SYRINGE IV PRN (03:21)
[2024-08-02] MEDS: ALBUT/IPRATROP 3MG/0.5MG NEB 3 ML VIAL NEB SCH (04:21)
[2024-08-02 04:41] LABS: Appearance Urine Clear (Clear); Bacteria Urine Automated None Seen (None Seen); Bilirubin Urine Negative (Negative); Blood Urine Negative (Negative); Cast Urine Automated 0-2 /lpf (0-2); Color Urine Yellow; Epithelial Cell Urine Auto 0-2 /hpf (0-2); Glucose Urine UA 2+ (Negative); Ketones Urine Negative (Negative); Leukocyte Esterase Urine Negative (Negative); Nitrite Urine Negative (Negative); Protein Urine 2+ (Negative); RBC Urine Automated 0-2 /hpf (0-2); Specific Gravity Urine 1.024 (1.000-1.030); Urobilinogen Urine Negative (Negative); WBC Urine Automated 0-5 /hpf (0-5); pH Urine 7.5 (4.5-7.5)
[2024-08-02] MEDS: HEPARIN SOD 5,000 UNIT/0.5 ML VIAL SQ SCH (05:44)
--- NOTE | 2024-08-02 07:27 | Hospitalist Progress Note ---
Date of Service August 02, 2024 Assessment & Plan (1) COPD (chronic obstructive pulmonary disease): Plan: acute on chronic respiratory failure with hypoxia and hypercarbia improved hypercarbia and mentation, states does not use NIPVV at home Patient with severe COPD. Follows with Pulmonary. No wheeze on exam. -Continue Trelegy or formulary equivalent -DuoNebs q 4 hours -Albuterol q 2 hours PRN -Continue BiPAP, hs and with sleep during day -Continue supplemental O2 (2) CAD (coronary artery disease): Plan: Chronic. stable Patient with CAD s/p ZITA x 2 in RCA. He follows with Dr. Vazquez of Cardiology. Mild troponin elevation 20.7 on arrival, improved on repeat suspect demand ischemia -Continue ASA/ Plavix, Atorvastatin, metoprolol 100mg po BID has Ch LE edema, maybe more from morbid obesity with BMI 40, and prob SREEKANTH with increased r heart pressures, has changes of chronic venous staisis and tenderness pending doppler to rule out DVT, consider cellulitis, downgrade to Keflex (3) Controlled type 2 diabetes mellitus with insulin therapy: Plan: Patient follows with Diabetes Clinic. Elevated blood sugar at present at 198 -Lantus 10u BID -ISS -Continue Neurontin for neuropathic pain (4) Depression: Plan: Chronic. Stable -Continue Bupropion 150mg po BID (5) BPH loc w urin obs/LUTS: Plan: Chronic. Patient follows with Urology -Continue Finasteride -Bladder scan and straight cath as needed Plan Ppx - Heparin 5000u TID Code - Full per discussion with patient Admission and Anticipated Discharge Date Admission Date: August 01, 2024 Subjective pt is awake and appropriate, states he just got up to eat and fell, no recollection of breathing difficulties mentation improved Physical Exam Physical Exam: awake, eating lunch cardiac distant lungs also distant abd is soft le with 2+ tender edema, changes of chronic venous stasis and stasis dermatitis, LLE > RLE doppler results pending Results & Data Results & Data Vital Signs (Past 12 Hours) Vital Signs Temp Pulse Pulse Resp BP BP Pulse Ox 08/02/24 07:00 98.1 F 60 19 145/69 H 100 08/02/24 04:25 54 L 18 98 08/02/24 03:01 55 L 25 H 99 08/02/24 02:50 08/02/24 02:50 97.7 F 55 L 25 H 179/99 H 98 08/02/24 02:50 97.7 F 55 L 25 H 179/99 H 98 08/02/24 02:05 59 L 24 150/94 H 97 08/02/24 00:33 63 18 124/65 100 08/02/24 00:17 91 H 26 H 98 08/01/24 23:00 52 L 18 142/102 H 99 08/01/24 22:00 58 L 18 167/79 H 99 08/01/24 21:42 57 L 18 166/99 H 100 08/01/24 21:35 53 L 25 H 100 08/01/24 21:07 58 L 18 96 08/01/24 21:07 98.1 F 58 L 18 168/84 H 96 08/01/24 21:07 96 08/01/24 21:07 98.1 F 58 L 18 168/84 H 96 08/01/24 21:03 56 L O2 Del Method O2 Flow Rate FiO2 08/02/24 07:00 Nasal Cannula 3 08/02/24 04:25 Nasal Cannula 3 08/02/24 03:01 28 08/02/24 02:50 CPAP 28 08/02/24 02:50 CPAP 28 08/02/24 02:50 CPAP 28 08/02/24 02:05 08/02/24 00:33 08/02/24 00:17 28 08/01/24 23:00 CPAP 08/01/24 22:00 Nasal Cannula 4 08/01/24 21:42 Room Air 08/01/24 21:35 30 08/01/24 21:07 Nasal Cannula 4 08/01/24 21:07 Nasal Cannula 4 08/01/24 21:07 Nasal Cannula 08/01/24 21:07 Nasal Cannula 4 08/01/24 21:03 Laboratory Results review cbc review chemistry PG Care Time/CCT Total # of Minutes Spent Total Time Spent with Patient: Total time spent is greater than 50% in coordination of care (as documented) at patient's floor/unit and/or counseling patient: Coding Level of Care Code 22854 SUB INP/OBS CARE 3/50MIN Diagnoses Pulmonary emphysema, unspecified emphysema type J44.9 COPD type: unspecified COPD Coronary artery disease involving [place] coronary artery of [place] heart without angina pectoris I25.10 Associated angina: without angina Coronary Disease-Associated Artery/Lesion type: [place] artery [place] vs. transplanted heart: [place] heart Controlled type 2 diabetes mellitus with insulin therapy E11.9; Z79.4 Depression, unspecified depression type F32.9 Depression Type: unspecified BPH loc w urin obs/LUTS N40.1 (1) COPD (chronic obstructive pulmonary disease) COPD type: unspecified COPD Qualified Code(s): J44.9 - Chronic obstructive pulmonary disease, unspecified (2) CAD (coronary artery disease) Associated angina: without angina Coronary Disease-Associated Artery/Lesion type: [place] artery [place] vs. transplanted heart: [place] heart Qualified Code(s): I25.10 - Atherosclerotic heart disease of [place] coronary artery without angina pectoris (4) Depression Depression Type: unspecified Qualified Code(s): F32.9 - Major depressive disorder, single episode, unspecified
[2024-08-02 07:54] LABS: Base Excess VBG 12.9 mEq/L; HCO3 VBG 42 mmol/L; Oxygen Saturation VBG 79.2 %; PCO2 VBG 74 mmHg (38-50); PO2 VBG 44 mmHg; pH VBG 7.36 (7.36-7.41)
[2024-08-02] MEDS: INSULIN ASPART PER UNIT CHARGE SC SCH (08:30)
[2024-08-02 08:56] LABS: Estimated Average Glucose 174 mg/dl; Hemoglobin A1C 7.7 % (4.5-5.6)
[2024-08-02] MEDS: LANTUS PER UNIT CHARGE SQ SCH (09:12)
[2024-08-02] MEDS: UMECLIDINIUM/VILANTEROL 62.5/25MCG 7 PUFFS/INHALER INH SCH (09:14)
[2024-08-02] MEDS: FLUTICASONE FUROATE 100MCG 14 PUFFS/INHALER INH SCH (09:14)
[2024-08-02] MEDS: FINASTERIDE 5 MG TAB PO SCH (09:15)
[2024-08-02] MEDS: GABAPENTIN 400 MG CAP PO SCH (09:15)
[2024-08-02] MEDS: METOPROLOL TARTRATE 100 MG TAB PO SCH (09:15)
[2024-08-02] MEDS: ATORVASTATIN 40 MG TAB PO SCH (09:15)
[2024-08-02] MEDS: buPROPion SR 150 MG TABCR PO SCH (09:15)
[2024-08-02] MEDS: CLOPIDOGREL BISULFATE 75 MG TAB PO SCH (09:15)
--- NOTE | 2024-08-02 11:37 | Electrocardiogram Report ---
Test Reason : Blood Pressure : */* mmHG Vent. Rate : 57 BPM Atrial Rate : 57 BPM P-R Int : 154 ms QRS Dur : 82 ms QT Int : 428 ms P-R-T Axes : 112 -8 26 degrees QTcB Int : 416 ms Poor data quality, interpretation may be adversely affected Sinus bradycardia Otherwise normal ECG When compared with ECG of 03-Dec-2023 00:36, Premature ventricular complexes are no longer Present Vent. rate has decreased by 39 bpm QRS axis Shifted right Borderline criteria for Anterior infarct are no longer Present Confirmed by Sha Lazaro ([id number]) on 08/02/2024 11:36:49 AM Referred By: REFERRED SELF Confirmed By: Sha Lazaro
[2024-08-02] MEDS: cephALEXin 500 MG CAP PO SCH (16:50)
--- NOTE | 2024-08-02 19:55 | Ultrasound Report ---
EXAM: US venous doppler LE LT CLINICAL HISTORY: HX: prev 12/03/23. Left leg red and swollen RT. Exam limited by increased body habitus, BMI 40. TECH NOTES: No obvious DVT LLE. ?echogenic lymph node left groin, marley 3.2 x 1.2 x 3 cm. Edema left pop fossa and calf. TECHNIQUE: Ultrasound examination of left lower extremity veins was performed in real time and duplex. One or more of the following were performed- spectral analysis, resistive index, waveform analysis, and pulsed Doppler. COMPARISON: 12/03/2023. FINDINGS: Normal phasic, non-pulsatile and spontaneous flow is noted in left common femoral, superficial femoral, popliteal, anterior tibial, posterior tibial and peroneal veins. Visualized veins of left lower extremity demonstrate normal compressibility. No sonographic evidence of acute deep vein thrombosis (DVT) is detected in the visualized veins of lower extremity. Compression and Augmentation: All evaluated veins compress fully with applied transducer pressure. Augmentation of venous flow is noted with distal compression. Additional Findings: No evidence of intraluminal thrombus. Echogenic enlarged lymph node is seen in the left inguinal region measuring 3.2 x 1.2 x 3.0 cm. Edema is seen in the left popliteal fossa and left calf. IMPRESSION: 1. No sonographic evidence of acute DVT detected at the time of examination with no interval changes seen. 2. Echogenic enlarged lymph node is seen in the left inguinal region measuring 3.2 x 1.2 x 3.0 cm. 3. Edema is seen in the left popliteal fossa and left calf. Disclaimer: DVT could be missed early in the disease when clot burden is minimal. For patients with moderate and high pretest probability of DVT and negative ultrasound, the [place] [employer] clinical guidelines recommend testing with a D-dimer assay or repeat ultrasound in 5-7 days. If symptoms worsen, the Society of radiologists in ultrasound recommends repeating ultrasound even earlier. Electronically signed by Agustín Lee 08-02-2024 7:54 PM
[2024-08-02] MEDS: DOCUSATE SODIUM 100 MG CAP PO SCH (21:50)
[2024-08-02] MEDS: ASPIRIN 81 MG ECTAB PO SCH (21:50)
[2024-08-03 06:41] LABS: Creatinine Clr Calc Pharmacy 51.4 ml/min
[2024-08-03] MEDS: BUMETANIDE 0.5 MG in SYRINGE 0 ML IV ONE (10:11)
--- NOTE | 2024-08-03 13:01 | XCELERA ---
[id number]
--- NOTE | 2024-08-03 14:21 | Hospitalist Progress Note ---
Date of Service August 03, 2024 Assessment & Plan (1) COPD (chronic obstructive pulmonary disease): Plan: acute on chronic respiratory failure with hypoxia and hypercarbia, perhaps secondary to metabolic encephalopathy from le cellulitis poa improved hypercarbia and mentation, states does not use NIPVV at home Patient with severe COPD. Follows with Pulmonary. No wheeze on exam. -Continue Trelegy or formulary equivalent -DuoNebs q 4 hours -Albuterol q 2 hours PRN -Continue BiPAP, hs and with sleep during day -Continue supplemental O2 (2) CAD (coronary artery disease): Plan: Chronic. stable Patient with CAD s/p ZITA x 2 in RCA. He follows with Dr. Vazquez of Cardiology. Mild troponin elevation 20.7 on arrival, improved on repeat suspect demand ischemia -Continue ASA/ Plavix, Atorvastatin, metoprolol 100mg po BID Echo ordered has Ch LE edema, maybe more from morbid obesity with BMI 40, and prob SREEK[place]TH with increased r heart pressures, has changes of chronic venous staisis and tenderness negative doppler for DVT, consider cellulitis as cause of physiologic stress to create encephalpaty, downgrade to Keflex pending urine culture also (3) Controlled type 2 diabetes mellitus with insulin therapy: Plan: Patient follows with Diabetes Clinic. Elevated blood sugar at present at 198 -Lantus 10u BID -ISS -Continue Neurontin for neuropathic pain (4) Depression: Plan: Chronic. Stable -Continue Bupropion 150mg po BID (5) BPH loc w urin obs/LUTS: Plan: Chronic. Patient follows with Urology -Continue Finasteride -Bladder scan and straight cath as needed Plan pt did very poor in attempt to walk will have PT/OT and consider rehab Ppx - Heparin 5000u TID Code - Full per discussion with patient Admission and Anticipated Discharge Date Admission Date: August 01, 2024 Subjective pt is awake and appropriate,pt unable to stand without 2 person assist, , no recollection of breathing difficulties or urinary changes, does have chronic leg swelling and skin changes and this is likely his portal of infection for encephalopathy mentation improved Physical Exam Physical Exam: awake, eating lunch cardiac distant lungs also distant abd is soft le with 2+ tender edema, changes of chronic venous stasis and stasis dermatitis, LLE > RLE doppler results negative for DVT , large left inguinal LN is seen Results & Data Results & Data Vital Signs (Past 12 Hours) Vital Signs Temp Pulse Pulse Resp BP BP Pulse Ox 08/03/24 10:47 98.2 F 55 L 18 127/82 96 08/03/24 08:00 08/03/24 07:06 97.7 F 56 L 22 170/78 H 100 08/03/24 07:00 53 L 08/03/24 06:59 60 16 98 08/03/24 03:15 97.3 F L 60 18 122/68 97 08/03/24 03:03 53 L 17 98 O2 Del Method O2 Flow Rate 08/03/24 10:47 Nasal Cannula 08/03/24 08:00 Nasal Cannula 3 08/03/24 07:06 Nebulizer 08/03/24 07:00 08/03/24 06:59 Nasal Cannula 3 08/03/24 03:15 Nasal Cannula 3 08/03/24 03:03 Nasal Cannula 3 Laboratory Results reviewed Cr and poc glucoses PG Care Time/CCT Total # of Minutes Spent Total Time Spent with Patient: Total time spent is greater than 50% in coordination of care (as documented) at patient's floor/unit and/or counseling patient: Coding Level of Care Code 19398 SUB INP/OBS CARE 3/50MIN Diagnoses Pulmonary emphysema, unspecified emphysema type J44.9 COPD type: unspecified COPD Coronary artery disease involving [place] coronary artery of [place] heart without angina pectoris I25.10 Coronary Disease-Associated Artery/Lesion type: [place] artery [place] vs. transplanted heart: [place] heart Associated angina: without angina Controlled type 2 diabetes mellitus with insulin therapy E11.9; Z79.4 Depression, unspecified depression type F32.9 Depression Type: unspecified BPH loc w urin obs/LUTS N40.1 (1) COPD (chronic obstructive pulmonary disease) COPD type: unspecified COPD Qualified Code(s): J44.9 - Chronic obstructive pulmonary disease, unspecified (2) CAD (coronary artery disease) Coronary Disease-Associated Artery/Lesion type: [place] artery [place] vs. transplanted heart: [place] heart Associated angina: without angina Qualified C ode(s): I25.10 - Atherosclerotic heart disease of [place] coronary artery without angina pectoris (4) Depression Depression Type: unspecified Qualified Code(s): F32.9 - Major depressive disorder, single episode, unspecified
[2024-08-04 06:46] LABS: Hematocrit (blood only) 45.4 % (42.0-52.0); Hemoglobin 13.9 g/dl (14.0-18.0); Mean Corpuscular Hemoglobin 29.7 pg (25.0-34.0); Mean Corpuscular Hgb Conc 30.6 g/dL (32.0-36.0); Mean Platelet Volume 9.9 fL (9.4-12.4); Platelet Count 123 K/uL (130-400); RDW Coefficient of Variation 15.2 % (11.5-14.5); Red Blood Count 4.68 M/uL (4.70-6.10); White Blood Count 6.59 K/ul (4.8-10.8)
[2024-08-04 07:07] LABS: BUN Creatinine Ratio 16.5 (10-20); Calcium 8.8 mg/dl (8.6-10.3); Creatinine Clr Calc Pharmacy 54.6 ml/min; Potassium 3.9 mmol/L (3.5-5.1)
[2024-08-04] MEDS: BUMETANIDE 1 MG TAB PO SCH (08:56)
--- NOTE | 2024-08-04 14:30 | Hospitalist Progress Note ---
Date of Service August 04, 2024 Assessment & Plan (1) COPD (chronic obstructive pulmonary disease): Plan: acute on chronic respiratory failure with hypoxia and hypercarbia, perhaps secondary to metabolic encephalopathy from le cellulitis poa improved hypercarbia and mentation, states does not use NIPVV at home Patient with severe COPD. Follows with Pulmonary. No wheeze on exam. -Continue Trelegy or formulary equivalent -DuoNebs q 4 hours -Albuterol q 2 hours PRN -Continue BiPAP, hs and with sleep during day -Continue supplemental O2 (2) CAD (coronary artery disease): Plan: Chronic. stable Patient with CAD s/p ZITA x 2 in RCA. He follows with Dr. Vazquez of Cardiology. Mild troponin elevation 20.7 on arrival, improved on repeat suspect demand ischemia -Continue ASA/ Plavix, Atorvastatin, metoprolol 100mg po BID Echo ordered has Ch LE edema, maybe more from morbid obesity with BMI 40, and prob [place] with increased r heart pressures, has changes of chronic venous staisis and tenderness negative doppler for DVT, consider cellulitis as cause of physiologic stress to create encephalpaty, downgrade to Keflex pending urine culture also (3) Controlled type 2 diabetes mellitus with insulin therapy: Plan: Patient follows with Diabetes Clinic. Elevated blood sugar at present at 198 -Lantus increase to 15 bid -ISS -Continue Neurontin for neuropathic pain (4) Depression: Plan: Chronic. Stable -Continue Bupropion 150mg po BID (5) BPH loc w urin obs/LUTS: Plan: Chronic. Patient follows with Urology -Continue Finasteride -Bladder scan and straight cath as needed Plan pt did very poor in attempt to walk will have PT/OT and consider rehab Ppx - Heparin 5000u TID Code - Full per discussion with patient Admission and Anticipated Discharge Date Admission Date: August 01, 2024 Subjective pt is awake and appropriate,pt unable to stand without 2 person assist, , no recollection of breathing difficulties or urinary changes, does have chronic leg swelling and skin changes and this is likely his portal of infection for encephalopathy mentation improved, but functional status is poor Physical Exam Physical Exam: awake, eating lunch cardiac distant lungs also distant abd is soft le with 2+ tender edema, changes of chronic venous stasis and stasis dermatitis, LLE > RLE doppler results negative for DVT , large left inguinal LN is seen Results & Data Results & Data Vital Signs (Past 12 Hours) Vital Signs Temp Pulse Pulse Resp BP BP Pulse Ox 08/04/24 11:02 61 19 126/70 94 08/04/24 08:45 08/04/24 07:45 54 L 08/04/24 07:19 98.2 F 52 L 159/89 H 99 08/04/24 03:18 97.9 F 53 L 18 156/87 H 97 O2 Del Method O2 Flow Rate 08/04/24 11:02 Nasal Cannula 2 08/04/24 08:45 Nasal Cannula 3 08/04/24 07:45 08/04/24 07:19 Nasal Cannula 2 08/04/24 03:18 Nasal Cannula 2 Laboratory Results review cbc review chemistry review poc glucose, adjust long acting insulin PG Care Time/CCT Total # of Minutes Spent Total Time Spent with Patient: Total time spent is greater than 50% in coordination of care (as documented) at patient's floor/unit and/or counseling patient: Coding Level of Care Code 16172 SUB INP/OBS CARE 3/50MIN Diagnoses Pulmonary emphysema, unspecified emphysema type J44.9 COPD type: unspecified COPD Coronary artery disease involving [place] coronary artery of [place] heart without angina pectoris I25.10 Coronary Disease-Associated Artery/Lesion type: [place] artery [place] vs. transplanted heart: [place] heart Associated angina: without angina Controlled type 2 diabetes mellitus with insulin therapy E11.9; Z79.4 Depression, unspecified depression type F32.9 Depression Type: unspecified BPH loc w urin obs/LUTS N40.1 (1) COPD (chronic obstructive pulmonary disease) COPD type: unspecified COPD Qualified Code(s): J44.9 - Chronic obstructive pulmonary disease, unspecified (2) CAD (coronary artery disease) Coronary Disease-Associated Artery/Lesion type: [place] artery [place] vs. transplanted heart: [place] heart Associated angina: without angina Qualified Code(s): I25.10 - Atherosclerotic heart disease of [place] coronary artery without angina pectoris (4) Depression Depression Type: unspecified Qualified Code(s): F32.9 - Major depressive disorder, single episode, unspecified
[2024-08-04] MEDS: LANTUS PER UNIT CHARGE SQ SCH (21:24)
[2024-08-05 07:48] VITALS: RESP 16; TEMP 97.9
[2024-08-05 09:33] VITALS: BP 146/82; PULSE 57; O2SAT 97
[2024-08-05] MEDS: ACETAMINOPHEN 325 MG TAB PO PRN (13:45)
--- NOTE | 2024-08-05 14:46 | Discharge Summary ---
Discharge Summary Date of Service August 05, 2024 Principal Dx & Hospital Course #1 = Principal Diagnosis (1) COPD (chronic obstructive pulmonary disease): acute on chronic respiratory failure with hypoxia and hypercarbia, perhaps secondary to metabolic encephalopathy from le cellulitis poa improved hypercarbia and mentation, states does not use NIPVV at home Patient with severe COPD. Follows with Pulmonary. No wheeze on exam. -Continue Trelegy or formulary equivalent -DuoNebs q 4 hours -Albuterol q 2 hours PRN -Continue BiPAP, hs and with sleep during day -Continue supplemental O2 (2) CAD (coronary artery disease): Chronic. stable Patient with CAD s/p ZITA x 2 in RCA. He follows with Dr. Vazquez of Cardiology. Mild troponin elevation 20.7 on arrival, improved on repeat suspect demand ischemia -Continue ASA/ Plavix, Atorvastatin, metoprolol 100mg po BID Echo ordered has Ch LE edema, maybe more from morbid obesity with BMI 40, and prob SREEK[place]TH with increased r heart pressures, has changes of chronic venous staisis and tenderness negative doppler for DVT, consider cellulitis as cause of physiologic stress to create encephalpaty, downgrade to Keflex (3) Controlled type 2 diabetes mellitus with insulin therapy: Patient follows with Diabetes Clinic. Elevated blood sugar at present at 198 -Lantus increase to 15 bid -ISS -Continue Neurontin for neuropathic pain continue basal bolus at [facility] (4) Depression: Chronic. Stable -Continue Bupropion 150mg po BID (5) BPH loc w urin obs/LUTS: Chronic. Patient follows with Urology -Continue Finasteride Plan pt did very poor in attempt to walk will have PT/OT and would benefit from rehab Ppx - Heparin 5000u TID while inpt discression of encpmpass to continue Code - Full per discussion with patient Admission HPI Per Admitting Provider Adonis Stephenson is a 73yo male with history of chronic respiratory failure with hypoxia and hypercapnia secondary to severe COPD on 3L supplemental O2 at home, SREEKANTH unable to tolerate CPAP at home and HFpEF, diastolic dysfunction as well as CAD, DM, BPH presenting from home with one week of progressive shortness of breath as well as generalized weakness, lethargy and worsening shortness of breath. is at bedside and supplements history - she reports that patient has had intermittent confusion and hallucinations over the last week as well. They also note worsening bilateral LE edema L > R. No report of chest pain, palpitations, fever, chills, cough, nausea, vomiting, diarrhea. Normal UOP with no dysuria. His was ill two weeks ago with a very bad URI. Was recently given samples of Gemtasa for treatment of overactive bladder. Upon arrival to the ER patient somnolent but arousable. VBG as noted with acute on chronic hypercapnic respiratory failure. He was placed on BiPAP. ER Course: Zosyn 4.5gm Discharge Exam Patient is awake and alert he is still very weak Lower extremities show changes of chronic venous stasis and some edema improved from admission Card exam is regular Lungs are poor air movement but no wheezes or focal air loss lungs have poor air movement but no wheezes or focal air loss Discharge Plan Discharge Items Patient Disposition: Transfer Inpatient Rehab Fac Reason For Visit: ACUTE ON CHRONIC RESP FAILURE WITH HYPERCARBIA Discharge Diagnosis: acute on chronic respiratory failure with hypercapnia le cellulitis leading to encephalopahty Activity: Resume your previous activity Non-emergency contact: Primary Care Provider Call non-emergency contact if: your symptoms worsen Follow-up/Referrals: Salas Valente DO [Primary Care Provider] - Diet: Carb Consistent or DM2 and Low Sodium (2gm) Addtl Attending Provider Instructions: exact details of events of admission are not clear, did improve with respiratory support and antibiotics, only clinical nidus was leg changes pt is not compliant with bipap at home, did have some diuresis with resultant jon, will recc restart diuretics at transition to [facility] His insulin requirements have not been as high as home only being on lantus 15 u bid and scale, no ozempic Pending Studies at Discharge: No Stand-Alone Forms: My [facility] Skilled Items Patient informed of condition?: Yes DNR: No Discharge Level of Care: Acute rehab Communicable Disease: No Discharge Prognosis: Stable Lines: None Urinary Catheter: No Medications and DC Order Prescriptions: New cephalexin 500 mg Capsule 500 mg PO QID 4 Days Qty: 16 0RF bumetanide 0.5 mg tablet 0.5 mg PO Q OTHER DAY Qty: 20 0RF Continued finasteride [Proscar] 5 mg tablet 5 mg PO QAM Qty: 90 3RF Ozempic 1 mg/dose (4 mg/3 mL) pen injector 1 mg subcut WK 90 Days Qty: 9 3RF Rx Instructions: MONDAYS insulin degludec [Tresiba FlexTouch U-200] 200 unit/mL (3 mL) insulin pen 60 unit subcut HS 90 Days Qty: 27 3RF metoprolol tartrate [Lopressor] 100 mg tablet 100 mg PO BID Qty: 180 3RF atorvastatin 40 mg tablet 40 mg PO QAM Qty: 90 3RF Trelegy Ellipta 100-62.5-25 mcg blister with device 1 inh inhalation QAM bupropion HCl 150 mg tablet sustained-release 12 hr 150 mg PO BID 90 Days Qty: 180 3RF docusate sodium 100 mg capsule 100 mg PO HS (DME) FreeStyle Nidia 2 Sensor Kit See Rx Instructions .Route Rx Instructions: As directed mecobalamin (vitamin B12) 1,000 mcg tablet,chewable 1,000 mcg PO QAM clopidogrel 75 mg tablet 75 mg PO QAM Qty: 90 3RF cholecalciferol (vitamin D3) [Vitamin D3] 1,000 unit Tablet 1,000 unit PO BID aspirin 81 mg Tablet,Delayed Release (Dr/Ec) 81 mg PO QPM gabapentin 400 mg capsule 400 mg PO [facility] insulin aspart U-100 [Novolog FlexPen U-100 Insulin] 100 unit/mL (3 mL) insulin pen 50 unit subcut [facility] Lac-Hydrin Five 5 % lotion 1 g EXT BID PRN (Reason: Dry Skin) Discharge Orders: Discharge Order (Routine); Ordered 08/05/24 Ordered By: Jayson Dee/Other Patient Handouts: Chest and Lung Problems, Managing Type 2 Diabetes, ED Cellulitis Admission Data Admit Date/Time: 08/01/24 23:12 Attending Provider: Jayson De La Torre Admit Provider: Brunilda Knig Primary Care Provider: Salas Valente. Other Providers: Brunilda King; [facility] Other Interventions: Discharge Summary Assessment (RN) Last Done: 08/05/24 13:50 Hospital Stay Data Consultations 08/01/24 22:10 ED Decision to Admit Stat Diagnostic Imagining Performed 08/02/24 01:14 US venous doppler LE LT Routine Pending Results Patient Have Any Pending Studies at Discharge: No Discharge Instructions Given to Patient (Per Discharging Provider) exact details of events of admission are not clear, did improve with respiratory support and antibiotics, only clinical nidus was leg changes pt is not compliant with bipap at home, did have some diuresis with resultant jon, will recc restart diuretics at transition to [facility] His insulin requirements have not been as high as home only being on lantus 15 u bid and scale, no ozempic Total Time Total Time Spent Total Time Spent (In Minutes): It required greater than 30 minutes to prepare this patient for discharge. Coding Level of Care Code 22255 INP/OBS DISCH >30 MIN Diagnoses Pulmonary emphysema, unspecified emphysema type J44.9 COPD type: unspecified COPD Coronary artery disease involving [place] coronary artery of [place] heart without angina pectoris I25.10 Coronary Disease-Associated Artery/Lesion type: [place] artery [place] vs. transplanted heart: [place] heart Associated angina: without angina Controlled type 2 diabetes mellitus with insulin therapy E11.9; Z79.4 Depression, unspecified depression type F32.9 Depression Type: unspecified BPH loc w urin obs/LUTS N40.1
== END 2024-08-05 16:18 | DRG 189 ==
LOC: ED 20:56 → 2E 23:12 → SUATTDRO 23:12 → 2E 08-02 02:10 → 3N 08-04 16:17